=== PATIENT | female | born 1955 | race Two or more races ===

== ENCOUNTER 2020-08-27 09:55 | Outpatient (REF) | payer MEDICARE, MEDICAID, SELFPAY ==
[2020-08-27 11:33] LABS: MANUAL DIFF FLAG NO
[2020-08-27 11:37] LABS: Basophils Absolute Auto 0.1 X10*3/uL (0.0-0.2); Basophils Percent Auto 0.7 % (0-2); Eosinophils Absolute Auto 0.1 X10*3/uL (0.0-0.4); Eosinophils Percent Auto 0.9 % (0-4); Hematocrit 43.2 % (37-47); Hemoglobin 14.1 g/dl (12.0-16.0); Imm Gran Abs Auto 0.02 X10*3/uL (0.00-0.03); Imm Gran Pct Auto 0.3 % (0.0-0.4); Lymphocytes Absolute Auto 1.4 X10*3/uL (1.2-4.9); Lymphocytes Percent Auto 18.1 % (20-40); Mean Corpuscular HGB Conc 32.6 g/dl (31.0-35.0); Mean Corpuscular Hemoglobin 27.3 pg (27.0-33.0); Mean Corpuscular Volume 83.7 fL (80-98); Mean Platelet Volume 10.5 fL (9.4-12.3); Monocytes Absolute Auto 0.4 X10*3/uL (0.1-1.2); Monocytes Percent Auto 5.5 % (2-11); Neutrophils Absolute Auto 5.7 X10*3/uL (2.0-8.3); Neutrophils Percent Auto 74.5 % (45-73); Platelet Count 201 X10*3/uL (160-400); Red Blood Count 5.16 X10*6/uL (4.20-5.50); Red Cell Distribution Width 13.9 % (11.0-16.0); White Blood Count 7.7 X10*3/uL (4.8-10.8)
[2020-08-27 12:05] LABS: Alanine Aminotransferase 55 U/L (0-31); Albumin Level 4.3 g/dL (3.5-5.0); Alkaline Phosphatase 173 U/L (39-117); Anion Gap 15 (12-20); Aspartate Amino Transferase 35 U/L (5-31); Bilirubin Total 0.7 mg/dL (0.0-1.0); Blood Urea Nitrogen 19 mg/dL (9-16); Carbon Dioxide 25 mmol/L (22-29); Chloride 100 mmol/L (96-108); Estimated Glomerular Filt Rate > 60; Glucose Fasting 164 mg/dL (60-99); Magnesium 1.9 mg/dL (1.6-2.6); Phosphorus 3.5 mg/dL (2.7-4.5); Potassium 4.5 mmol/l (3.3-5.1); Sodium 135 mmol/L (135-145); Total Protein 7.3 g/dL (6.5-8.0)
[2020-08-27 12:26] LABS: Free T4 (Free Thyroxine) 0.92 ng/dL (0.71-1.85); Thyroid Stimulating Hormone 3.49 mIU/mL (0.32-4.0); Vitamin D 25-OH Total 24.3 ng/mL (>30)
[2020-08-28 20:32] LABS: Calcium (PTHI) 10.2 mg/dL (8.6-10.4); PTHI 63 pg/mL (14-64)
[2020-08-30 15:53] LABS: Alkaline Phosphatase Bone 38.8 mcg/L (5.6-29.0)
[2020-09-01 17:57] LABS: Calcium, Ionized 5.5 mg/dL (4.8-5.6)
[2020-09-03 13:12] LABS: VITAMIN D (1,25 OH) D3 65 pg/mL; Vit D (1,25-Dihydroxy) Total 65 pg/mL (18-72); Vitamin D (1,25 OH) D2 <8 pg/mL
[2020-09-04 16:22] LABS: Testosterone, Total 19 ng/dL (2-45)
[2020-09-05 00:51] LABS: Parathyroid Hormone Related Pr 12 pg/mL (14-27)
== END 2020-08-27 09:56 | disposition home or self-care (01) ==
LOC: CF 09:55
PROVIDERS: Absent Provider Internal Medicine; PCP Internal Medicine Geriatric Medicine; Referring Provider Internal Medicine Geriatric Medicine; Visit Provider Internal Medicine Endocrinology, Diabetes & Metabolism
DX: E11.65 Type 2 diabetes mellitus with hyperglycemia (principal); E11.21 Type 2 diabetes mellitus with diabetic nephropathy; E04.2 Nontoxic multinodular goiter; I10 Essential (primary) hypertension; E78.5 Hyperlipidemia, unspecified; E66.9 Obesity, unspecified; L68.0 Hirsutism; E83.52 Hypercalcemia; Z79.4 Long term (current) use of insulin; Z68.34 Body mass index [BMI] 34.0-34.9, adult; Z71.3 Dietary counseling and surveillance
CPT/HCPCS: 36415; 80053; 82306; 82330; 82652; 82947; 83519; 83735; 83970; 84075; 84100; 84402; 84403; 84439; 84443; 85025; 99212

== ENCOUNTER 2020-09-09 12:31 | Outpatient (REF) | payer MEDICARE, MEDICAID, SELFPAY ==
--- NOTE | 2020-09-09 12:34 | US_ITS ---
EXAMINATION: US THYROID CLINICAL INFORMATION: Nontoxic multinodular goiter. COMPARISON: Ultrasound soft tissue head/neck thyroid dated 04/03/2019 and 03/01/2018. TECHNIQUE: Linear transducer moser-scale and color Doppler examination with attention to the region of the thyroid. FINDINGS: SIZE: Measurements of the thyroid lobes and nodules are given in sagittal, anteroposterior and transverse dimensions respectively. Right Thyroid Lobe: 3.3 x 1.9 x 1.7 cm, volume 5.6 mL. Previously 3.7 x 1.8 x 1.7 cm, volume 5.7 mL. Parenchyma: The gland echotexture is homogeneous. Thyroid vascularity is normal. Left Thyroid Lobe: 3.3 x 1.6 x 1.8 cm, volume 4.9 mL. Previously 2.9 x 1.4 x 1.1 cm, volume 3.2 mL. Parenchyma: The gland echotexture is heterogeneous. Thyroid vascularity is normal. Isthmus: 0.6 cm in maximum AP dimension. Previously 0.9 cm. RIGHT THYROID LOBE: There is 1 nodule seen. 1. Location: Mid. Size: 1.7 x 1.6 x 1.4 cm. Previous: 1.3 x 1.4 x 1.6 cm. Nodule characteristics: Complex cystic and solid nodule with smooth circumscribed margins and intranodular flow but no microcalcification. ISTHMUS: There is 1 nodule seen. 1. Location: Left. Size: 0.5 x 0.4 x 0.4 cm. This nodule is new. Nodule characteristics: Hypoechoic smoothly marginated nodule with no intranodular flow or microcalcification. LEFT THYROID LOBE: There is 1 nodule seen. 1. Location: Superior. Size: 0.3 x 0.2 x 0.3 cm. This nodule is new. Nodule characteristics: Hypoechoic smoothly marginated nodule with no intranodular flow or microcalcification. NODES: No lymphadenopathy is seen in the tissue surrounding the thyroid gland. US/US thyroid IMPRESSION: Bilateral thyroid nodules are present. The largest is in the right lobe of the thyroid and is minimally increased in size, now 1.7 cm greatest dimension, previously 1.6 cm. There are new subcentimeter nodules in the left lobe the thyroid and isthmus. Recommend continued attention on follow-up, for example in 12-24 months.
== END 2020-09-09 12:32 | disposition home or self-care (01) ==
LOC: HO.US 12:31
PROVIDERS: Visit Provider Internal Medicine Endocrinology, Diabetes & Metabolism
DX: E04.2 Nontoxic multinodular goiter (principal)
CPT/HCPCS: 76536

== ENCOUNTER → 2020-10-21 14:03 | Outpatient (BNVA) | payer MEDICARE, MEDICAID, SELFPAY | PROVIDERS: PCP Internal Medicine Geriatric Medicine; Referring Provider Internal Medicine Geriatric Medicine; Visit Provider Surgery | DX: C50.912 Malignant neoplasm of unspecified site of left female breast (principal); Z79.811 Long term (current) use of aromatase inhibitors; Z92.3 Personal history of irradiation | CPT/HCPCS: 99212 ==

== ENCOUNTER 2020-11-27 09:32 | Outpatient (REF) | payer MEDICARE, MEDICAID, SELFPAY ==
--- NOTE | 2020-11-27 10:29 | P.BOP_ITS ---
Brief Operative Note Date of Service: 11/27/20 Pre-op diagnosis: NON TOXIC MULTINODULAR GOITER Post-op diagnosis: same Procedure: This procedure was explained to the patient. Alternatives, risks and benefits were discussed. Written consent was obtained. After sterile preparation of the skin, fine-needle aspiration biopsy of right mid to lower pole thyroid nodule, size 1.7 x 1.6 x 1.4 cm was performed under direct ultrasound guidance to confirm accurate needle placement. Three passes were performed with 27 gauge needles. Sample was submitted to cytology, initial cytology reading was inadequate. Two extra passes were performed with 25 gauge needles. 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 Patient tolerated procedure well. Aftercare instructions were provided. Impression: uncomplicated fine-needle aspiration biopsy of right mid to lower pole thyroid nodule under direct ultrasound guidance. Surgeon: Sourav Cedeno MD Anesthesia: local (Lidocaine 1%) Estimated blood loss (mL): 0 Condition: stable Disposition: same day
== END 2020-11-27 09:33 | disposition home or self-care (01) ==
LOC: HO.US 09:32
PROVIDERS: Visit Provider Internal Medicine Endocrinology, Diabetes & Metabolism
DX: E04.2 Nontoxic multinodular goiter (principal)
CPT/HCPCS: 10005; 88172; 88173; 88177

== ENCOUNTER → 2020-12-11 13:02 | Outpatient (BNVA) | payer MEDICARE, MEDICAID, SELFPAY | PROVIDERS: PCP Internal Medicine Geriatric Medicine; Referring Provider Internal Medicine Geriatric Medicine; Visit Provider Internal Medicine Endocrinology, Diabetes & Metabolism | DX: E11.65 Type 2 diabetes mellitus with hyperglycemia (principal); E11.21 Type 2 diabetes mellitus with diabetic nephropathy; E04.2 Nontoxic multinodular goiter; I10 Essential (primary) hypertension; E78.5 Hyperlipidemia, unspecified; E66.9 Obesity, unspecified; L68.0 Hirsutism; E83.52 Hypercalcemia | CPT/HCPCS: 82947; 99212 ==

== ENCOUNTER 2020-12-12 11:37 | Outpatient (REF) | payer MEDICARE, MEDICAID, SELFPAY ==
[2020-12-12 12:29] LABS: Total Volume 24 Hour Urine 2250 mL
[2020-12-12 13:29] LABS: Creatinine, 24Hr Urine 1.2 G/Day (1.0-2.0); Creatinine, mg/dL 55.54
[2020-12-13 16:37] LABS: Calcium, 24 Hr Urine 333 mg/24 h; Calcium/Creatinine Ratio 251 mg/g creat (30-275); Creatinine 24Hr Urine 1.33 g/24 h (0.50-2.15)
== END 2020-12-12 11:38 | disposition home or self-care (01) ==
LOC: HO.LNP 11:37
PROVIDERS: Visit Provider Internal Medicine Endocrinology, Diabetes & Metabolism
DX: E83.52 Hypercalcemia (principal); E04.2 Nontoxic multinodular goiter; E11.9 Type 2 diabetes mellitus without complications
CPT/HCPCS: 82340; 82570

== ENCOUNTER 2021-01-14 21:04 | Inpatient (IN) | payer MEDICARE, MEDICAID, SELFPAY ==
--- NOTE | ~2021-01-14 | XR_ITS ---
EXAMINATION: XR CHEST CLINICAL INFORMATION: Cough. COMPARISON: Chest x-ray 09/15/2011 TECHNIQUE: Frontal view of the chest was obtained. Portable 9:39 PM FINDINGS: No significant abnormality is noted involving the heart, lungs, mediastinum, bony thorax or soft tissues. XR/XR chest 1V IMPRESSION: Unremarkable examination.
--- NOTE | ~2021-01-14 | CT_ITS ---
EXAMINATION: CT ABDOMEN AND PELVIS WITH CONTRAST CLINICAL INFORMATION: Abdominal pain COMPARISON: CT abdomen pelvis 11/27/2018 TECHNIQUE: Multidetector volumetric images were obtained from the superior aspect of the liver through the pubic symphysis following administration 85 mL of Omnipaque 350 intravenous contrast. Sagittal and coronal reformatted images were obtained on the technologist's workstation. Oral contrast: No This CT examination was performed using dose optimization techniques as appropriate, variously including the following: *Automated exposure control *Adjustment of mA and/or kV according to patient size (this includes techniques or standardized protocols for targeted exams where dose is matched to indication/reason for exam; i.e. extremities or head) *Use of iterative reconstruction technique DLP: 743 mGy-cm FINDINGS: LUNG BASES: The left breast is grossly abnormal with marked skin thickening with mass extending centrally into the breast. The breast was previously biopsied patient has diagnosis of invasive lobular carcinoma. LIVER, GALLBLADDER, AND BILIARY TREE: The liver border is nodular suggesting underlying cirrhosis. No focal masses or bile duct dilatation is seen. Patient status post cholecystectomy PANCREAS: Unremarkable. SPLEEN: Unremarkable. ADRENAL GLANDS: Adrenal gland is minimally thickened compared with the right. KIDNEYS AND URETERS: The kidneys are normal in size, shape, and attenuation. No hydronephrosis, hydroureter, or calculi seen. No perinephric stranding. BLADDER: Unremarkable. GASTROINTESTINAL TRACT: Diverticular changes are present in the colon sigmoid without diverticulitis. The small and large bowel are otherwise unremarkable. The appendix is not seen. ABDOMINAL WALL: No significant hernia is appreciated. LYMPH NODES: No retroperitoneal lymphadenopathy. VASCULAR: Prominent varices are seen again around the splenic hilum. The aorta and iliofemoral vessels appear unremarkable. No aneurysm is seen. PELVIC VISCERA: Calcifications again seen in the uterus presumably due to fibroids. An abnormal adnexal mass or free intraperitoneal fluid is not seen. OSSEOUS STRUCTURES: Unremarkable. CT/CT abdomen pelvis w con IMPRESSION: A cause for the patient's acute abdominal pain has not been found. Incidental note is made of: 1. Abnormal left breast consistent with diagnosis of cancer 2. Nodular liver suggesting underlying cirrhosis with. No ascites. 3. Colonic diverticulosis without diverticulitis. 4. Calcified uterine fibroids.
[2021-01-14 21:16] VITALS: BP 138/56; BP 167/76; PULSE 120; RESP 18; TEMP 39.4; O2SAT 98; O2SAT 99; BMI 34.2
--- NOTE | 2021-01-14 21:35 | ECG_ITS ---
Test Reason : VOMITING Blood Pressure : / mmHG Vent. Rate : 120 BPM Atrial Rate : 120 BPM P-R Int : 158 ms QRS Dur : 140 ms QT Int : 346 ms P-R-T Axes : -08 148 010 degrees QTc Int : 489 ms Sinus tachycardia Right bundle branch block Left posterior fascicular block Bifascicular block Cannot rule out Inferior infarct , age undetermined Abnormal ECG When compared with ECG of 14-FEB-2019 15:31, Right bundle branch block has replaced Non-specific intra-ventricular conduction block Minimal criteria for Inferior infarct are now Present Referred By: Rocio Vieira Electronically Signed By:ADDIS PATTON MD
--- NOTE | 2021-01-14 21:51 | ED_ITS ---
HPI - Nausea/Vomiting/Diarrhea General Chief complaint: Nausea/Vomiting/Diarrhea Stated complaint: NAUSEA/FLU SYMPTOMS Time Seen by Provider: 01/14/21 21:31 History of Present Illness HPI Narrative: Patient is a 65-year-old female presents today with having nausea, vomiting. Previous history of cholecystectomy, appendectomy in the past. Also history of breast cancer. History of diabetes. Positive fever positive generalized malaise. Patient from home. No coughing or congestion or upper respiratory symptoms. No diaphoresis. No chest pain. Positive feeling weak tired. Positive pain on urination. Positive increasing frequency. Abdominal pain is diffuse over the entire abdomen. No change in smell or taste. Rates pain as 5/10. No history of similar pain in the past. No radiation of this pain Related Data Home Medications Medication Instructions Recorded Confirmed acetaminophen 1 - 2 tab PO Q8H PRN 08/06/20 01/14/21 aspirin 1 tab PO DAILY 08/06/20 01/14/21 atorvastatin 1 tab PO DAILY 08/06/20 01/14/21 benztropine 1 tab PO BID 08/06/20 01/14/21 fluphenazine decanoate 50 mg IM Q3W 08/06/20 01/14/21 ketorolac 1 drp OPHTHALMIC (EYE) TID PRN 08/06/20 01/14/21 letrozole [Femara] 1 tab PO DAILY 08/06/20 01/14/21 lisinopril 1 tab PO DAILY 08/06/20 01/14/21 meclizine 25 mg PO TID PRN 08/06/20 01/14/21 nortriptyline 1 cap PO BEDTIME 08/06/20 01/14/21 omeprazole 1 cap PO DAILY 08/06/20 01/14/21 semaglutide [Ozempic] 1 mg SUBCUT QWEEK 08/06/20 01/14/21 zolpidem [Ambien] 5 mg PO BEDTIME 08/06/20 01/14/21 diclofenac sodium 2 g TOPICAL BID 01/14/21 01/14/21 insulin aspart U-100 [Novolog 30 unit SUBCUT TID 01/14/21 01/14/21 Flexpen U-100 Insulin] insulin degludec [Tresiba 140 unit SUBCUT DAILY 01/14/21 01/14/21 FlexTouch U-200] Previous Rx's Medication Instructions Recorded pen needle, diabetic 32 gauge x #400 ea 08/12/20 meloxicam 7.5 mg tablet 7.5 mg PO DAILY 30 Days #30 tab 10/13/20 blood sugar diagnostic #100 ea 01/01/21 Allergies Allergy/AdvReac Type Severity Reaction Status Date / Time metformin [METFORMIN] Allergy Intermediate ELEVATED Verified 01/14/21 23:16 LIVER ENZYMES, liver damage Review of Systems Review of Systems: Constitutional: No Weight loss, No Fever, No Chills, No Night Sweats, No Fatigue, No Malaise ENT/Mouth: No Hearing loss, No Ear Pain, No Nasal Congestion, No Sinus Pain, No Hoarseness, No sore throat, No Rhinorrhea, No Swallowing Difficulty Eyes: No Eye Pain, No Swelling, No Redness, No Foreign Body, No Discharge, No Vision Changes Cardiovascular: No Chest Pain, No SOB, No Dyspnea on Exertion, No Orthopnea, No Edema, No Palpitations Respiratory: No Cough, No Sputum, No Wheezing, No Smoke Exposure, No Dyspnea Gastrointestinal: Positive nausea, positive vomiting, No Diarrhea, No Constipation, positive abdominal Pain, No Hematochezia, No Melena Genitourinary: no irregular bleeding, No Dysuria, No Urinary Frequency, No He maturia, No Urinary Incontinence, No Urgency, No Flank Pain, No Urinary Flow Changes, No Hesitancy Musculoskeletal: No joint pain, No Myalgias, No Joint Swelling Skin: No Skin Lesions, No rash Neuro: No Weakness, No Numbness, No Paresthesias, No Loss of Consciousness, No Dizziness, No Headache Psych: No Anxiety/Panic, No Depression, No SI/HI/AH/VH, No Social Issues, Heme/Lymph: No Bruising, No Bleeding,No Lymphadenopathy Endocrine: No Polyuria, No Polydipsia, No Temperature Intolerance PMFSH Past Medical History Attestation statement: The following information was validated with the patient. 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 Multinodular goiter (nontoxic) Obesity Urinary incontinence Surgical History History of appendectomy History of tonsillectomy History of tubal ligation Status post laser cataract surgery of both eyes Status post left breast lumpectomy Family History Family History Father History of lung cancer Social History Social History Household Members: None Housing: Apartment Smoking Status: Former smoker Tobacco Type: Cigarette Advance Directives: No Physical Exam Vital Signs: Vital Signs: Last Vital Signs Temp 100.7 F H 01/15/21 01:06 Pulse 118 H 01/15/21 01:06 Resp 18 01/15/21 01:06 BP 127/52 L 01/15/21 01:06 Pulse Ox 98 01/15/21 00:00 Body Mass Index 34.2 Appearance: Alert. Oriented X3. No acute distress. Eyes: Pupils equal, round and reactive to light. ENT: Pharynx normal. Neck: Normal inspection. Neck supple. No lymph nodes noted. No crepitus CVS: Normal heart rate and rhythm. Pulses normal. Normal S1 and S2 Respiratory: No respiratory distress. Breath sounds normal. No Wheezing. No rales Abdomen: Soft and nontender. No rigidity. No distention. good BS x4 Skin: Skin warm and dry. Normal skin color. Normal skin turgor. Extremities: No lower extremity edema. Neurovascular intact to all extremities. No Lacerations. No Rash Neuro: Oriented X 3. No motor deficit. No sensory deficit. Moving all extermities. No slurred speech MDM - Nausea/Vomiting/Diarrhea MDM Narrative Medical decision making narrative: Patient positive fever nausea, vomiting. CT scan did not show any acute evidence of obstruction, abscess. Urine showed no evidence of UTI. Chest x-ray showed no evidence of pneumonia. COVID test was negative. Will admit for further hydration. Will monitor carefully. Cultures are obtained. Patient's lactate was slightly elevated 2.1. A g Rocephin was given initially. Will monitor carefully. We will repeat lactate. Thanks patient's elevated lactate is more likely secondary to dehydration. Currently in stable condition Lab Data Result diagrams: 01/14/21 22:51 01/14/21 22:51 Labs: Lab Results 01/14/21 01/14/21 01/14/21 Range/Units 22:08 22:51 22:51 WBC 15.7 H (4.8-10.8) X10*3/uL RBC 4.94 (4.20-5.50) X10*6/uL Hgb 13.2 (12.0-16.0) g/dl Hct 39.9 (37-47) % MCV 80.8 (80-98) fL MCH 26.7 L (27.0-33.0) pg MCHC 33.1 (31.0-35.0) g/dl RDW 14.0 (11.0-16.0) % Plt Count 230 (160-400) X10*3/uL MPV 10.0 (9.4-12.3) fL Immature Gran % (Auto) 0.4 (0.0-0.4) % Neut % (Auto) 90.3 H (45-73) % Lymph % (Auto) 4.3 L (20-40) % [place] % (Auto) 4.5 (2-11) % Eos % (Auto) 0.3 (0-4) % Baso % (Auto) 0.2 (0-2) % Lymph # (Auto) 0.7 L (1.2-4.9) X10*3/uL [place] # (Auto) 0.7 (0.1-1.2) X10*3/uL Eos # (Auto) 0.1 (0.0-0.4) X10*3/uL Baso # (Auto) 0.0 (0.0-0.2) X10*3/uL Abs Immat Gran (auto) 0.06 H (0.00-0.03) X10*3/uL Absolute Neuts (auto) 14.2 H (2.0-8.3) X10*3/uL Absolute Nucleated RBC 0.000 (0.0-0.012) X10*3/uL Nucleated RBC % (auto) 0.0 (0.0-0.2) /100WBC Smear Tech's Comments VERIFIED Sodium 134 L (135-145) mmol/L Potassium 4.6 (3.3-5.1) mmol/L Chloride 100 (96-108) mmol/L Carbon Dioxide 25 (22-29) mmol/L Anion Gap 14 (12-20) BUN 24 H (9-16) mg/dL Creatinine 0.94 (0.5-1.4) mg/dL Estim Creat Clear Calc 59.4 Estimated GFR 60 Random Glucose 220 H (60-115) mg/dL Lactic Acid (0.5-2.0) mmol/L Calcium 9.9 (8.4-10.2) mg/dL Total Bilirubin 0.8 (0.0-1.0) mg/dL Direct Bilirubin 0.4 (0.0-0.5) mg/dL AST 75 H (5-31) U/L ALT 95 H (0-31) U/L Alkaline Phosphatase 236 H D (39-117) U/L Total Protein 7.2 (6.5-8.0) g/dL Albumin 4.2 (3.5-5.0) g/dL Lipase 11 (8-78) U/L Urine Color Urine Appearance Urine pH (5.0-8.0) Ur Specific [place] (1.005-1.025) Urine Protein (NEG-TRACE) MG/DL Urine Glucose (UA) (NEG) MG/DL Urine Ketones (NEG) MG/DL Urine Blood (NEG) Urine Nitrite (NEG) Ur Leukocyte Esterase (NEG) Urine RBC (0) /HPF Urine WBC (0-4) /HPF Ur Squamous Epith Cells /LPF Urine Bacteria /LPF Coronavirus (PCR) NEGATIVE (Negative) Influenza Type A (PCR) NEGATIVE (Negative) Influenza Type B (PCR) NEGATIVE (Negative) RSV RNA Qual (PCR) NEGATIVE (Negative) 01/14/21 01/15/21 Range/Units 22:51 01:08 WBC (4.8-10.8) X10*3/uL RBC (4.20-5.50) X10*6/uL Hgb (12.0-16.0) g/dl Hct (37-47) % MCV (80-98) fL MCH (27.0-33.0) pg MCHC (31.0-35.0) g/dl RDW (11.0-16.0) % Plt Count (160-400) X10*3/uL MPV (9.4-12.3) fL Immature Gran % (Auto) (0.0-0.4) % Neut % (Auto) (45-73) % Lymph % (Auto) (20-40) % [place] % (Auto) (2-11) % Eos % (Auto) (0-4) % Baso % (Auto) (0-2) % Lymph # (Auto) (1.2-4.9) X10*3/uL [place] # (Auto) (0.1-1.2) X10*3/uL Eos # (Auto) (0.0-0.4) X10*3/uL Baso # (Auto) (0.0-0.2) X10*3/uL Abs Immat Gran (auto) (0.00-0.03) X10*3/uL Absolute Neuts (auto) (2.0-8.3) X10*3/uL Absolute Nucleated RBC (0.0-0.012) X10*3/uL Nucleated RBC % (auto) (0.0-0.2) /100WBC Smear Tech's Comments Sodium (135-145) mmol/L Potassium (3.3-5.1) mmol/L Chloride (96-108) mmol/L Carbon Dioxide (22-29) mmol/L Anion Gap (12-20) BUN (9-16) mg/dL Creatinine (0.5-1.4) mg/dL Estim Creat Clear Calc Estimated GFR Random Glucose (60-115) mg/dL Lactic Acid 2.1 H* (0.5-2.0) mmol/L Calcium (8.4-10.2) mg/dL Total Bilirubin (0.0-1.0) mg/dL Direct Bilirubin (0.0-0.5) mg/dL AST (5-31) U/L ALT (0-31) U/L Alkaline Phosphatase (39-117) U/L Total Protein (6.5-8.0) g/dL Albumin (3.5-5.0) g/dL Lipase (8-78) U/L Urine Color YELLOW Urine Appearance CLEAR Urine pH 7.0 (5.0-8.0) Ur Specific [place] <= 1.005 (1.005-1.025) Urine Protein NEG (NEG-TRACE) MG/DL Urine Glucose (UA) NEG (NEG) MG/DL Urine Ketones NEG (NEG) MG/DL Urine Blood NEG (NEG) Urine Nitrite NEG (NEG) Ur Leukocyte Esterase TRACE H (NEG) Urine RBC 0 (0) /HPF Urine WBC 0-2 (0-4) /HPF Ur Squamous Epith Cells 1+ /LPF Urine Bacteria NONE /LPF Coronavirus (PCR) (Negative) Influenza Type A (PCR) (Negative) Influenza Type B (PCR) (Negative) RSV RNA Qual (PCR) (Negative) Critical Care Time Critical Care Time Critical Care Time: Yes Total Critical Care Time: 40 Attestation: I have personally provided 40 minutes of critical care time exclusive of time spent on separately billable procedures. Time includes review of lab data, radiology results, discussion with consultants, and monitoring for potential decompensation. Interventions were performed as documented above Discharge Plan Discharge Clinical Impression: Fever, Nausea & vomiting Prescriptions: No Action (DME) pen needle, diabetic [BD Edilia 2nd Gen Pen Needle] 32 gauge x 5/32 needle See Rx Instructions .MEDSUPPLY Qty: 400 RF: 4 meloxicam 7.5 mg tablet 7.5 mg PO DAILY 30 Days Qty: 30 RF: 3 (DME) FreeStyle Lite Strips Strip See Rx Instructions .MEDSUPPLY Qty: 100 RF: 6 insulin aspart U-100 [Novolog Flexpen U-100 Insulin] 100 unit/mL (3 mL) insulin pen 30 unit subcut TID RF: 0 diclofenac sodium 1 % gel 2 g topical BID RF: 0 Tresiba FlexTouch U-200 200 unit/mL (3 mL) insulin pen 140 unit subcut DAILY RF: 0 nortriptyline 75 mg capsule 1 cap PO BEDTIME RF: 0 zolpidem [Ambien] 5 mg Tablet 5 mg PO BEDTIME RF: 0 atorvastatin 20 mg tablet 1 tab PO DAILY RF: 0 aspirin 81 mg tablet,delayed release (DR/EC) 1 tab PO DAILY RF: 0 acetaminophen 500 mg tablet 1 - 2 tab PO Q8H PRN (Reason: pain) RF: 0 ketorolac 0.5 % drops 1 drp ophthalmic (eye) TID PRN (Reason: Pain) RF: 0 fluphenazine decanoate 25 mg/mL solution 50 mg IM Q3W RF: 0 meclizine 25 mg Tablet 25 mg PO TID PRN (Reason: Dizziness) RF: 0 lisinopril 10 mg tablet 1 tab PO DAILY RF: 0 benztropine 1 mg tablet 1 tab PO BID RF: 0 omeprazole 20 mg capsule,delayed release(DR/EC) 1 cap PO DAILY RF: 0 letrozole [Femara] 2.5 mg tablet 1 tab PO DAILY RF: 0 Ozempic 1 mg/dose (2 mg/1.5 mL) pen injector 1 mg subcut QWEEK RF: 0
[2021-01-14 21:59] VITALS: BP 120/51; PULSE 119; RESP 20; O2SAT 96
--- NOTE | 2021-01-14 22:32 | PC.NURSE ---
Pt is a difficult stick, unable to obtain IV access. COVID swab obtained and sent for analysis, awaiting results. aware. Another RN to attempt to obtain labs & IV access. Will continue to monitor.
[2021-01-14 22:59] LABS: Basophils Percent Auto 0.2 % (0-2); Eosinophils Absolute Auto 0.1 X10*3/uL (0.0-0.4); Eosinophils Percent Auto 0.3 % (0-4); Hematocrit 39.9 % (37-47); Hemoglobin 13.2 g/dl (12.0-16.0); Imm Gran Abs Auto 0.06 X10*3/uL (0.00-0.03); Imm Gran Pct Auto 0.4 % (0.0-0.4); Lymphocytes Absolute Auto 0.7 X10*3/uL (1.2-4.9); Lymphocytes Percent Auto 4.3 % (20-40); MANUAL DIFF FLAG SCAN; Mean Corpuscular HGB Conc 33.1 g/dl (31.0-35.0); Mean Corpuscular Hemoglobin 26.7 pg (27.0-33.0); Mean Corpuscular Volume 80.8 fL (80-98); Monocytes Absolute Auto 0.7 X10*3/uL (0.1-1.2); Monocytes Percent Auto 4.5 % (2-11); Neutrophils Absolute Auto 14.2 X10*3/uL (2.0-8.3); Neutrophils Percent Auto 90.3 % (45-73); Platelet Count 230 X10*3/uL (160-400); Red Blood Count 4.94 X10*6/uL (4.20-5.50); SCAN SMEAR FLAG 1; White Blood Count 15.7 X10*3/uL (4.8-10.8)
[2021-01-14 23:05] LABS: Influenza A PCR NEGATIVE (Negative); Influenza B PCR NEGATIVE (Negative); Resp Syncy Virus RNA Qual PCR NEGATIVE (Negative); SARS COV2 PCR INHOUSE NEGATIVE (Negative)
[2021-01-14] MEDS: 0.9 % Sodium Chloride 1,000 ML 999 ML IV (23:06)
[2021-01-14] MEDS: ondansetron HCL 4 MG/2 ML VIAL IVPUSH (23:07)
[2021-01-14] MEDS: Acetaminophen 325 MG TABLET 650 MG PO (23:07)
[2021-01-14 23:10] VITALS: BP 119/40; PULSE 120; RESP 20; O2SAT 97
[2021-01-14 23:24] LABS: SLIDE REVIEW VERIFIED
[2021-01-14 23:36] LABS: Alanine Aminotransferase 95 U/L (0-31); Albumin Level 4.2 g/dL (3.5-5.0); Alkaline Phosphatase 236 U/L (39-117); Anion Gap 14 (12-20); Aspartate Amino Transferase 75 U/L (5-31); Bilirubin Direct 0.4 mg/dL (0.0-0.5); Bilirubin Total 0.8 mg/dL (0.0-1.0); Blood Urea Nitrogen 24 mg/dL (9-16); Calcium 9.9 mg/dL (8.4-10.2); Carbon Dioxide 25 mmol/L (22-29); Chloride 100 mmol/L (96-108); Creatinine Clr Calc Pharmacy 59.4; Estimated Glomerular Filt Rate 60; Glucose Random 220 mg/dL (60-115); Lipase 11 U/L (8-78); Potassium 4.6 mmol/L (3.3-5.1); Sodium 134 mmol/L (135-145); Total Protein 7.2 g/dL (6.5-8.0)
[2021-01-14 23:37] LABS: Lactic Acid 2.1 mmol/L (0.5-2.0)
[2021-01-14 23:44] VITALS: BP 130/42; PULSE 115; RESP 18; O2SAT 95
--- NOTE | 2021-01-14 23:52 | PC.NURSE ---
20g IV access that was established by ARTIE Mayer has infiltrated. New IV access (22g) established in left hand. 20g IV access removed by this RN.-
[2021-01-15] VITALS (14 sets, daily range): BP systolic 112–164; BP diastolic 52–74; PULSE 94–118; RESP 15–19; TEMP 36.2–38.8; O2SAT 95–100; BMI 34.2
--- NOTE | 2021-01-15 | ECG_ITS ---
Test Reason : SOB Blood Pressure : / mmHG Vent. Rate : 093 BPM Atrial Rate : 093 BPM P-R Int : 162 ms QRS Dur : 134 ms QT Int : 388 ms P-R-T Axes : 063 -57 052 degrees QTc Int : 482 ms Normal sinus rhythm Left axis deviation Non-specific intra-ventricular conduction block Abnormal ECG When compared with ECG of 14-JAN-2021 22:01, Non-specific intra-ventricular conduction block has replaced Right bundle branch block Referred By: Rocio Vieira Electronically Signed By:ADDIS PATTON MD
[2021-01-15 00:56] LABS: Reflex Lactate? Lactic Acid Added
[2021-01-15] MEDS: 0.9 % Sodium Chloride 500 ML 999 ML IV ×2 (01:06→02:36)
[2021-01-15] MEDS: cefTRIAXone sodium 1 GM in 0.9 % Sodium Chloride 50 ML IV (01:19)
[2021-01-15 01:20] LABS: Glucose Urine UA NEG (NEG); Leukocyte Esterase Urine TRACE (NEG); Nitrite Urine NEG (NEG); Specific Gravity - Urine <= 1.005 (1.005-1.025); UACC Culture Trigger YES; Urine Blood NEG (NEG); Urine Ketones NEG (NEG); Urine Protein NEG (NEG-TRACE)
[2021-01-15 01:21] LABS: Appearance Urine CLEAR; Color Urine YELLOW
[2021-01-15 01:27] LABS: RBC Urine 0 /HPF (0); Squamous Epithelial Cell Urine 1+ /LPF; WBC Urine 0-2 /HPF (0-4)
--- NOTE | 2021-01-15 02:00 | P.HPHOSP_ITS ---
History of Present Illness Date of Service: 01/15/21 Chief Complaint: Nausea and vomiting 65-year-old female with a past medical history of hypertension, hyperlipidemia, diabetes, anxiety, depression, bipolar disorder, obesity, history of liver cirrhosis,, history of breast cancer presented to the hospital with a chief complaint of nausea vomiting and abdominal pain. Patient reported that she had fever of 102 F at home. Denies any numbness tingling. Denies any blood in the vomitus or stool stool. Review of all other systems is negative except mentioned above ER course: Per ER team patient noted to have diffuse abdominal tenderness, noted mildly elevated LFTs, CT abdomen showed no acute findings; patient failed oral steroids. Patient was given Zosyn empirically. Blood cultures were sent. Admitted to the hospital for further management. 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 Multinodular goiter (nontoxic) Obesity Urinary incontinence Family History Father History of lung cancer Surgical History History of appendectomy History of tonsillectomy History of tubal ligation Status post laser cataract surgery of both eyes Status post left breast lumpectomy Social History Household Members: None Housing: Apartment Alcohol intake: current Alcohol intake frequency: holidays/special occasions only Smoking Status: Never smoker Tobacco Type: Cigarette Second Hand Smoke Exposure: No service: No Current occupational status: unemployed Meds Allergies Allergy/AdvReac Type Severity Reaction Status Date / Time metformin [METFORMIN] Allergy Intermediate ELEVATED Verified 01/14/21 23:16 LIVER ENZYMES, liver damage Active Medications: Current Medications Generic Name Dose Route Start Last Admin Trade Name Freq PRN Reason Stop Dose Admin Aspirin 81 mg 01/15/21 09:00 Aspirin Enteric Coated 81 Mg Tablet. PO DAILY [facility] Atorvastatin Calcium 20 mg 01/15/21 09:00 Atorvastatin Calcium 20 Mg Tablet PO DAILY [facility] Benztropine Mesylate 1 mg 01/15/21 09:00 Benztropine Mesylate 1 Mg Tablet PO BID [facility] Fluphenazine Decanoate 50 mg 01/15/21 02:00 Fluphenazine Decanoate 25 Mg/Ml Vial IM Q3W [facility] Piperacillin Sod/Tazobactam 50 mls @ 100 mls/hr 01/15/21 02:00 Sod 3.375 gm/ Sodium Chloride IV Q6H [facility] Dextrose/Sodium Chloride 1,000 mls @ 50 mls/hr 01/15/21 02:00 D51/2ns IVCONT .Q20H [facility] Insulin Human Lispro 0 unit 01/15/21 07:30 Insulin Lispro 100 Unit/Ml 3 Ml Vial SUBCUT QIDACHS [facility] Protocol Ketorolac Tromethamine 1 drop 01/15/21 01:56 Ketorolac Tromethamine 0.5% Op 3 Ml Drops EYE-BOTH TID PRN Pain Letrozole 2.5 mg 01/15/21 09:00 Letrozole 2.5 Mg Tablet PO DAILY [facility] Lisinopril 10 mg 01/15/21 09:00 Lisinopril 10 Mg Tablet PO DAILY [facility] Protocol Meclizine HCl 25 mg 01/15/21 01:56 Meclizine Hcl 25 Mg Tablet PO TID PRN Dizziness Nortriptyline HCl 75 mg 01/15/21 21:00 Nortriptyline Hcl 25 Mg Capsule PO BEDTIME [facility] Omeprazole 20 mg 01/15/21 09:00 Omeprazole 20 Mg Capsule.Dr PO DAILY [facility] Sodium Chloride 3 ml 01/15/21 08:00 0.9 % Sodium Chloride Flush 3 Ml Syringe IVFLUSH QSHIFT [facility] Zolpidem Tartrate 5 mg 01/15/21 21:00 Zolpidem Tartrate 5 Mg Tablet PO BEDTIME [facility] Home Medications Medication Instructions Recorded Confirmed Last Taken Type Ozempic 1 mg SUBCUT QWEEK 08/06/20 01/14/21 Unknown History acetaminophen 1 - 2 tab PO Q8H PRN 08/06/20 01/14/21 01/14/21 History aspirin 1 tab PO DAILY 08/06/20 01/14/21 01/14/21 History atorvastatin 1 tab PO DAILY 08/06/20 01/14/21 01/14/21 History benztropine 1 tab PO BID 08/06/20 01/14/21 01/13/21 History fluphenazine decanoate 50 mg IM Q3W 08/06/20 01/14/21 Unknown History ketorolac 1 drp OPHTHALMIC (EYE) TID PRN 08/06/20 01/14/21 Unknown History letrozole [Femara] 1 tab PO DAILY 08/06/20 01/14/21 01/14/21 History lisinopril 1 tab PO DAILY 08/06/20 01/14/21 01/14/21 History meclizine 25 mg PO TID PRN 08/06/20 01/14/21 Unknown History nortriptyline 1 cap PO BEDTIME 08/06/20 01/14/21 01/14/21 History omeprazole 1 cap PO DAILY 08/06/20 01/14/21 01/14/21 History zolpidem [Ambien] 5 mg PO BEDTIME 08/06/20 01/14/21 01/13/21 History Tresiba FlexTouch U-200 140 unit SUBCUT DAILY 01/14/21 01/14/21 01/14/21 History diclofenac sodium 2 g TOPICAL BID 01/14/21 01/14/21 01/14/21 History insulin aspart U-100 [Novolog 30 unit SUBCUT TID 01/14/21 01/14/21 01/14/21 History Flexpen U-100 Insulin] Physical Exam Vital Signs and Narrative: Vital Signs: Last Vital Signs Temp 100.7 F H 01/15/21 01:06 Pulse 118 H 01/15/21 01:06 Resp 18 01/15/21 01:06 BP 127/52 L 01/15/21 01:06 Pulse Ox 98 01/15/21 00:00 Body Mass Index 34.2 Gen: Appears be in no acute distress HEENT: NCAT, Moist mucosa. Pulmonary: Vesicular breath sounds, fair air entry CVS: Normal S1-S2 Abdomen: BS+, Soft, mildly tender diffusely; no guarding no rigidity Extremities: Warm well perfused Neuro: Alert and awake. Results Labs CBC and Chem 7: 01/18/21 07:10 01/18/21 07:10 Labs: Laboratory Results - last 24 hr 01/14/21 01/14/21 01/14/21 22:08 22:51 22:51 MCV 80.8 MCH 26.7 L MCHC 33.1 RDW 14.0 Plt Count 230 MPV 10.0 Immature Gran % (Auto) 0.4 Neut % (Auto) 90.3 H Lymph % (Auto) 4.3 L [place] % (Auto) 4.5 Eos % (Auto) 0.3 Baso % (Auto) 0.2 Lymph # (Auto) 0.7 L [place] # (Auto) 0.7 Eos # (Auto) 0.1 Baso # (Auto) 0.0 Abs Immat Gran (auto) 0.06 H Absolute Neuts (auto) 14.2 H Absolute Nucleated RBC 0.000 Nucleated RBC % (auto) 0.0 Smear Tech's Comments VERIFIED Anion Gap 14 Estim Creat Clear Calc 59.4 Estimated GFR 60 Random Glucose 220 H Lactic Acid Calcium 9.9 Total Bilirubin 0.8 Direct Bilirubin 0.4 AST 75 H ALT 95 H Alkaline Phosphatase 236 H D Total Protein 7.2 Albumin 4.2 Lipase 11 Urine Color Urine Appearance Urine pH Ur Specific [place] Urine Protein Urine Glucose (UA) Urine Ketones Urine Blood Urine Nitrite Ur Leukocyte Esterase Urine RBC Urine WBC Ur Squamous Epith Cells Urine Bacteria Coronavirus (PCR) NEGATIVE Influenza Type A (PCR) NEGATIVE Influenza Type B (PCR) NEGATIVE RSV RNA Qual (PCR) NEGATIVE 01/14/21 01/15/21 22:51 01:08 MCV MCH MCHC RDW Plt Count MPV Immature Gran % (Auto) Neut % (Auto) Lymph % (Auto) [place] % (Auto) Eos % (Auto) Baso % (Auto) Lymph # (Auto) [place] # (Auto) Eos # (Auto) Baso # (Auto) Abs Immat Gran (auto) Absolute Neuts (auto) Absolute Nucleated RBC Nucleated RBC % (auto) Smear Tech's Comments Anion Gap Estim Creat Clear Calc Estimated GFR Random Glucose Lactic Acid 2.1 H* Calcium Total Bilirubin Direct Bilirubin AST ALT Alkaline Phosphatase Total Protein Albumin Lipase Urine Color YELLOW Urine Appearance CLEAR Urine pH 7.0 Ur Specific [place] <= 1.005 Urine Protein NEG Urine Glucose (UA) NEG Urine Ketones NEG Urine Blood NEG Urine Nitrite NEG Ur Leukocyte Esterase TRACE H Urine RBC 0 Urine WBC 0-2 Ur Squamous Epith Cells 1+ Urine Bacteria NONE Coronavirus (PCR) Influenza Type A (PCR) Influenza Type B (PCR) RSV RNA Qual (PCR) Imaging Radiologist's Impressions: Impressions Abdomen/Pelvis CT 01/14/21 21:31 IMPRESSION: A cause for the patient's acute abdominal pain has not been found. Incidental note is made of: 1. Abnormal left breast consistent with diagnosis of cancer 2. Nodular liver suggesting underlying cirrhosis with. No ascites. 3. Colonic diverticulosis without diverticulitis. 4. Calcified uterine fibroids. Chest X-Ray 01/14/21 21:31 IMPRESSION: Unremarkable examination. Assessment and Plan (1) Fever: Status: Acute 65-year-old female with a past medical history of hypertension, hyperlipidemia, diabetes, multinodular goiter, history of breast cancer, liver cirrhosis presented to the hospital with a chief complaint of nausea vomiting/generalized weakness and fever. Fever: Unclear source. Patient had nausea vomiting question GI source. CT abdomen showed no acute findings. Continue Zosyn. Follow up cultures. Id consult. History of liver cirrhosis: Patient admitted liver enzymes. Will continue to monitor. Nausea/vomiting: Supportive care. Gentle IV fluids. Breast cancer: Oncology consult Diabetes: Insulin sliding scale DVT prophylaxis: Subcu heparin Code status: Full code at
[2021-01-15 02:03] LABS: ~Lactic Acid-LAB USE ONLY 2.3 mmol/L (0.5-2.0)
[2021-01-15] MEDS: Piperacillin Sodium/Tazobactam 3.375 GM in 0.9 % Sodium Chloride 50 ML IV ×4 (02:36→20:18)
[2021-01-15] MEDS: 0.9 % Sodium Chloride 1,000 ML 999 ML IV (02:36)
--- NOTE | 2021-01-15 03:10 | PC.NURSE ---
HOSPITALIST TO BEDSIDE FOR EVALUATION.
[2021-01-15 03:16] LABS: Reflex Lactate? 2 Y
[2021-01-15 04:33] LABS: ~Lactic Acid-LAB USE ONLY 1.8 mmol/L (0.5-2.0)
[2021-01-15] MEDS: Dextrose 5 % and 0.45 % NaCl 1,000 ML 50 ML IVCONT (04:38)
[2021-01-15] MEDS: Omeprazole 20 MG CAPSULE.DR PO (06:11)
[2021-01-15 07:18] LABS: MANUAL DIFF FLAG NO
[2021-01-15 07:21] LABS: Basophils Percent Auto 0.1 % (0-2); Eosinophils Percent Auto 0.1 % (0-4); Hematocrit 34.6 % (37-47); Hemoglobin 11.1 g/dl (12.0-16.0); Imm Gran Abs Auto 0.06 X10*3/uL (0.00-0.03); Imm Gran Pct Auto 0.4 % (0.0-0.4); Lymphocytes Absolute Auto 0.8 X10*3/uL (1.2-4.9); Lymphocytes Percent Auto 5.4 % (20-40); Mean Corpuscular HGB Conc 32.1 g/dl (31.0-35.0); Mean Corpuscular Hemoglobin 26.4 pg (27.0-33.0); Mean Corpuscular Volume 82.4 fL (80-98); Mean Platelet Volume 10.4 fL (9.4-12.3); Monocytes Absolute Auto 0.6 X10*3/uL (0.1-1.2); Monocytes Percent Auto 4.3 % (2-11); Neutrophils Absolute Auto 13.2 X10*3/uL (2.0-8.3); Neutrophils Percent Auto 89.7 % (45-73); Platelet Count 183 X10*3/uL (160-400); Red Cell Distribution Width 14.2 % (11.0-16.0); White Blood Count 14.7 X10*3/uL (4.8-10.8)
[2021-01-15 07:40] LABS: Glucose, Whole Blood 173 mg/dL (60-115)
[2021-01-15] MEDS: Aspirin Enteric Coated 81 MG TABLET.DR PO (07:58)
[2021-01-15] MEDS: lisinopriL 10 MG TABLET PO (07:58)
[2021-01-15] MEDS: Atorvastatin Calcium 20 MG TABLET PO (07:58)
[2021-01-15] MEDS: Letrozole 2.5 MG TABLET PO (07:58)
[2021-01-15] MEDS: Benztropine Mesylate 1 MG TABLET PO ×2 (07:59→20:18)
[2021-01-15] MEDS: Insulin Lispro 100 UNIT/ML 3 ML VIAL SUBCUT ×4 (07:59→20:59)
[2021-01-15 08:03] LABS: Anion Gap 13 (12-20); Blood Urea Nitrogen 22 mg/dL (9-16); Calcium 8.7 mg/dL (8.4-10.2); Carbon Dioxide 25 mmol/L (22-29); Chloride 106 mmol/L (96-108); Creatinine Clr Calc Pharmacy 69.9; Estimated Glomerular Filt Rate > 60; Glucose Random 189 mg/dL (60-115); Potassium 4.5 mmol/L (3.3-5.1); Sodium 139 mmol/L (135-145)
[2021-01-15 09:01] LABS: HBsAGNum1 0.16 S/CO (0.00-0.99); Hepatitis B Surface Antigen Negative (Negative)
--- NOTE | 2021-01-15 09:17 | MHC.CM.PN ---
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 PT REPORTS HER SON ALEXANDER LUNA IS HER HCP AND COPY WAS FOUND IN RECORDS. PT ALSO ABLE TO VERIFY PCP AND PHARMACY AND NAME AND CONTACT INFO FOR PT'S VNA. HCP: ALEXANDER LUNA (SON) [phone] PCP: AUBREY SOUZA PSYCHIATRIST: SHAYNE HAWKINS [phone], NEXT PROXIN INJECTION DUE 01/21/21, GIVEN BY VNA VNA: [facility], PRIMARY NURSE [facility] [phone], BID VISITS
[2021-01-15 09:38] LABS: HBc Num1 0.03 S/CO (0.00-0.79); Hepatitis B Core Antibody Nonreactive (Nonreactive); ~Hepatitis B Surface Antibody NONREACTIVE (Nonreactive); ~Hepatitis C Antibody Nonreactive (Nonreactive)
[2021-01-15 11:09] LABS: Glucose, Whole Blood 205 mg/dL (60-115)
--- NOTE | 2021-01-15 11:44 | P.PNIM_ITS ---
Subjective Subjective Date of Service: 01/15/21 Interval History: no complaints Cardiovascular Cardiovascular: Reports no additional cardiovascular complaints Gastrointestinal Gastrointestinal: Reports no additional gastrointestinal complaints Physical Exam Vital Signs: Vital Signs: Last Vital Signs Temp 100.9 F H 01/15/21 11:00 Pulse 96 01/15/21 11:00 Resp 19 01/15/21 11:00 BP 164/74 H 01/15/21 11:00 Pulse Ox 98 01/15/21 11:00 Body Mass Index 34.2 General: AO X 3, no acute distress Resp: CTA bilateral CVS: S1,S2,RRR GI: soft, non tender, non distended Neuro: motor grossly intact Psych: appropriate affect Objective Data Current Medications Generic Name Dose Route Start Last Admin Trade Name Freq PRN Reason Stop Dose Admin Acetaminophen 650 mg 01/15/21 11:21 Acetaminophen 325 Mg Tablet PO Q8H PRN pain, fever Aspirin 81 mg 01/15/21 09:00 01/15/21 07:58 Aspirin Enteric Coated 81 Mg Tablet.Dr PO 81 mg DAILY DUANE Administration Atorvastatin Calcium 20 mg 01/15/21 09:00 01/15/21 07:58 Atorvastatin Calcium 20 Mg Tablet PO 20 mg DAILY [facility] Administration Benztropine Mesylate 1 mg 01/15/21 09:00 01/15/21 07:59 Benztropine Mesylate 1 Mg Tablet PO 1 mg BID DUANE Administration Fluphenazine Decanoate 50 mg 01/23/21 09:00 Fluphenazine Decanoate 25 Mg/Ml Vial IM Q21D [facility] Piperacillin Sod/Tazobactam 50 mls @ 100 mls/hr 01/15/21 02:00 01/15/21 08:43 Sod 3.375 gm/ Sodium Chloride IV Infused Q6H [facility] Infusion Dextrose/Sodium Chloride 1,000 mls @ 50 mls/hr 01/15/21 02:00 01/15/21 04:38 D51/2ns IVCONT 50 mls/hr .Q20H DUANE Administration Insulin Human Lispro 0 unit 01/15/21 07:30 01/15/21 07:59 Insulin Lispro 100 Unit/Ml 3 Ml Vial SUBCUT 2 unit QIDACHS DUANE Administration Protocol Ketorolac Tromethamine 1 drop 01/15/21 01:56 Ketorolac Tromethamine 0.5% Op 3 Ml Drops EYE-BOTH TID PRN Pain Letrozole 2.5 mg 01/15/21 09:00 01/15/21 07:58 Letrozole 2.5 Mg Tablet PO 2.5 mg DAILY [facility] Administration Lisinopril 10 mg 01/15/21 09:00 01/15/21 07:58 Lisinopril 10 Mg Tablet PO 10 mg DAILY [facility] Administration Protocol Meclizine HCl 25 mg 01/15/21 01:56 Meclizine Hcl 25 Mg Tablet PO TID PRN Dizziness Nortriptyline HCl 75 mg 01/15/21 21:00 Nortriptyline Hcl 25 Mg Capsule PO BEDTIME [facility] Omeprazole 20 mg 01/15/21 06:30 01/15/21 06:11 Omeprazole 20 Mg Capsule.Dr PO 20 mg DAILY@0630 [facility] Administration Sodium Chloride 3 ml 01/15/21 08:00 01/15/21 08:01 0.9 % Sodium Chloride Flush 3 Ml Syringe IVFLUSH Not Given QSHIFT [facility] Zolpidem Tartrate 5 mg 01/15/21 21:00 Zolpidem Tartrate 5 Mg Tablet PO BEDTIME [facility] Labs CBC & Chem 7: 01/15/21 06:45 01/15/21 06:45 Assessment and Plan (1) Fever: Status: Acute Assessment and Plan: 65F presented with fever. severe sepsis (POA, suspected, no source identified so far) empiric zosyn follow up cultures, id ua negative, cxr, ctabd negative liver cirrhosis probably CULLEN, stable DM inlin breast ca outpatient follow up
[2021-01-15] MEDS: Acetaminophen 325 MG TABLET 650 MG PO ×2 (11:54→20:17)
--- NOTE | 2021-01-15 12:24 | CONS_ITS ---
DATE OF SERVICE: 01/15/2021 REFERRING PHYSICIAN: Ryan Thrasher MD REASON FOR CONSULTATION: Elevated liver function tests. HISTORY OF PRESENT ILLNESS: The patient is a pleasant 65-year-old woman, who was admitted to the hospital on January 15 with complaints of nausea, vomiting, and abdominal pain. She reports the symptoms began the day of admission and she felt febrile at home. There was no hematemesis or melena. She has not had any ill contacts, travel or suspect food injections. She was evaluated in the emergency room with laboratory studies and had mild elevations of her liver function tests. CT scanning was obtained, which is reviewed. This is interpreted as showing changes consistent with hepatic cirrhosis without any focal liver pathology. The patient has a history of cirrhosis and underlying fatty liver and did undergo cholecystectomy in April of 2016 because of chronic cholecystitis and gallstones. At that time, the liver was noted to be nodular consistent with cirrhosis. The patient has no history of alcohol abuse. There is no family history of cirrhosis and she has no history of chronic liver disease from hepatitis or autoimmune liver disease. Previous evaluation with imaging studies has shown persistent fatty liver changes on ultrasound and CT scanning, which is likely the basis for her cirrhosis. She has not had complications of cirrhosis including hepatic encephalopathy, GI bleeding, or ascites. She reports prior to her recent illness, appetite was good and she has not had jaundice or pruritus. PAST MEDICAL HISTORY: 1. Hypertension. 2. Diabetes. 3. Hyperlipidemia. 4. Anxiety/depression. 5. Cirrhosis. 6. Breast cancer. 7. Hypercalcemia. 8. Diabetic nephropathy. 9. Multinodular goiter. CURRENT MEDICATIONS: Her current medication list is reviewed in the chart. ALLERGIES: METFORMIN. FAMILY HISTORY: This is reviewed with the patient and is noncontributory. SOCIAL HISTORY: There is no current tobacco, alcohol, or substance abuse. REVIEW OF SYSTEMS: SKIN: No pruritus. HEENT: Negative. CARDIOPULMONARY: She denies shortness of breath or chest pain. GASTROINTESTINAL: As above. GENITOURINARY: Negative. NEUROPSYCHIATRIC: Negative. PHYSICAL EXAMINATION: GENERAL: Shows a pleasant female, lying comfortably in bed. VITAL SIGNS: Reviewed in the electronic medical record and are stable. She did have a fever to 103 last night. SKIN: Anicteric. HEENT: Shows no scleral icterus. NECK: Without lymphadenopathy or thyromegaly. LUNGS: Clear. HEART: Shows regular rate and rhythm. S1, S2. No murmur. ABDOMEN: Soft without focal masses or tenderness. Bowel sounds are present. No organomegaly is noted. EXTREMITIES: Without edema. LABORATORY DATA: Reviewed. Liver function tests show a total bilirubin of 0.8, AST 75, ALT 95, alkaline phosphatase 236. CT scanning of the abdomen and pelvis shows liver to be nodular without any focal masses or ductal dilation. She is status post cholecystectomy. IMPRESSION: Elevated liver function tests. She appears to have hepatic cirrhosis likely on the basis of fatty liver based on previous evaluation. Her liver function tests are slightly more elevated than usual. This may reflect her underlying clinical situation with nausea and vomiting, which seems consistent with a gastroenteritis, likely viral. At this time, I would recommend obtaining further autoimmune and metabolic markers for evaluation for her liver disease. Her liver function tests should be monitored and consideration could be given to elective outpatient upper endoscopy because of her history of underlying cirrhosis to evaluate for esophageal varices. Thanks for asking me to see her. I will follow her in the hospital with you. MD MICHEAL Valente/WARREN / [id number] MTDD
[2021-01-15] MEDS: 0.9 % Sodium Chloride Flush 3 ML SYRINGE IVFLUSH ×2 (14:48→20:18)
[2021-01-15 16:08] LABS: Glucose, Whole Blood 256 mg/dL (60-115)
--- NOTE | 2021-01-15 17:37 | PC.NURSE ---
Pt home visiting nurse Nicole (ph [phone]) faxed over copy of updated medication record, compared to her medication list in DEC and appears up to date - will leave paper copy in pt chart. Visiting nurse is for med administration at home, pt does not have other services.
[2021-01-15] MEDS: Zolpidem Tartrate 5 MG TABLET PO (20:18)
[2021-01-15] MEDS: Nortriptyline HCl 25 MG CAPSULE 75 MG PO (20:18)
[2021-01-15 20:44] LABS: Glucose, Whole Blood 210 mg/dL (60-115)
--- NOTE | 2021-01-15 21:34 | W.PM.IDCN ---
History of Present Illness Data of Consult Service Date: 01/15/21 Requesting physician: Ryan Thrasher Primary Care Provider: Unknown Physician HPI Reason for consult: fever of unknown origin in patient with cancer She presents to hospital with day of nausea and vomiting. She has had no diarrhea mentioned She has mildly elevated LFTs and was seen by GI She has known cirrhosis and h/o appendectomy and cholycystectomy COVID is negative and no one else is ill Blood and urine cultures are negative She was started on Zosyn She also has history of left breast cancer Review of Systems Review of Systems: Yes all other systems are reviewed and are negative [facility] Past Medical History Medical History (Updated 01/15/21 @ 21:41 by Nanette Thompson MD) Bipolar disorder Diabetes mellitus Diabetes type 2, uncontrolled Diabetic nephropathy associated with type 2 diabetes mellitus Dyslipidemia Fever of unknown origin Hirsutism HTN (hypertension) Hypercalcemia Hyperlipidemia Hypertension Liver cirrhosis MCC (current) use of insulin Multinodular goiter (nontoxic) Obesity Urinary incontinence Family History Family History Father History of lung cancer Surgical History Surgical History History of appendectomy History of tonsillectomy History of tubal ligation Status post laser cataract surgery of both eyes Status post left breast lumpectomy Social History Social History Household Members: None Housing: Apartment Alcohol intake: current Alcohol intake frequency: holidays/special occasions only Smoking Status: Never smoker Tobacco Type: Cigarette Smoked in Last 30 Days: No Second Hand Smoke Exposure: No Use of substances other than those prescribed or required for medical reasons: Yes Currently Displaying Signs/Symptoms of Drug Intoxication Withdrawal: No Any prior treatment program specific to substance use: No Have you been hit, kicked, punched, or otherwise hurt by someone within the past year? If so, by whom?: No Do you feel safe in your current relationship?: No Current Relationship Is there a partner from a previous relationship who is making you feel unsafe now?: No Are you made to feel afraid or neglected: No Advance Directives: No Do you have thoughts of harming others: None Do you have a plan to hurt others: No Plan service: No Current occupational status: unemployed Meds Allergies Allergy/AdvReac Type Severity Reaction Status Date / Time metformin [METFORMIN] Allergy Intermediate ELEVATED Verified 01/14/21 23:16 LIVER ENZYMES, liver damage Active Medications: Current Medications Generic Name Dose Route Start Last Admin Trade Name Freq PRN Reason Stop Dose Admin Acetaminophen 650 mg 01/15/21 11:21 01/15/21 20:17 Acetaminophen 325 Mg Tablet PO 650 mg Q8H PRN Administration pain, fever Aspirin 81 mg 01/15/21 09:00 01/15/21 07:58 Aspirin Enteric Coated 81 Mg Tablet.Dr PO 81 mg DAILY [facility] Administration Atorvastatin Calcium 20 mg 01/15/21 09:00 01/15/21 07:58 Atorvastatin Calcium 20 Mg Tablet PO 20 mg DAILY [facility] Administration Benztropine Mesylate 1 mg 01/15/21 09:00 01/15/21 20:18 Benztropine Mesylate 1 Mg Tablet PO 1 mg BID [facility] Administration Fluphenazine Decanoate 50 mg 01/23/21 09:00 Fluphenazine Decanoate 25 Mg/Ml Vial IM Q21D [facility] Piperacillin Sod/Tazobactam 50 mls @ 100 mls/hr 01/15/21 02:00 01/15/21 20:59 Sod 3.375 gm/ Sodium Chloride IV Infused Q6H [facility] Infusion Insulin Human Lispro 0 unit 01/15/21 07:30 01/15/21 20:59 Insulin Lispro 100 Unit/Ml 3 Ml Vial SUBCUT 4 unit QIDACHS [facility] Administration Protocol Ketorolac Tromethamine 1 drop 01/15/21 01:56 Ketorolac Tromethamine 0.5% Op 3 Ml Drops EYE-BOTH TID PRN Pain Letrozole 2.5 mg 01/15/21 09:00 01/15/21 07:58 Letrozole 2.5 Mg Tablet PO 2.5 mg DAILY [facility] Administration Lisinopril 10 mg 01/15/21 09:00 01/15/21 07:58 Lisinopril 10 Mg Tablet PO 10 mg DAILY [facility] Administration Protocol Meclizine HCl 25 mg 01/15/21 01:56 Meclizine Hcl 25 Mg Tablet PO TID PRN Dizziness Nortriptyline HCl 75 mg 01/15/21 21:00 01/15/21 20:18 Nortriptyline Hcl 25 Mg Capsule PO 75 mg BEDTIME [facility] Administration Omeprazole 20 mg 01/15/21 06:30 01/15/21 06:11 Omeprazole 20 Mg Capsule.Dr PO 20 mg DAILY@0630 [facility] Administration Sodium Chloride 3 ml 01/15/21 08:00 01/15/21 20:18 0.9 % Sodium Chloride Flush 3 Ml Syringe IVFLUSH 3 ml QSHIFT [facility] Administration Zolpidem Tartrate 5 mg 01/15/21 21:00 01/15/21 20:18 Zolpidem Tartrate 5 Mg Tablet PO 5 mg BEDTIME [facility] Administration Home Medications Medication Instructions Recorded Confirmed Last Taken Type acetaminophen 1 - 2 tab PO Q8H PRN 08/06/20 01/14/21 01/14/21 History aspirin 1 tab PO DAILY 08/06/20 01/14/21 01/14/21 History atorvastatin 1 tab PO DAILY 08/06/20 01/14/21 01/14/21 History benztropine 1 tab PO BID 08/06/20 01/14/21 01/13/21 History fluphenazine decanoate 50 mg IM Q3W 08/06/20 01/14/21 Unknown History ketorolac 1 drp OPHTHALMIC (EYE) TID PRN 08/06/20 01/14/21 Unknown History letrozole [Femara] 1 tab PO DAILY 08/06/20 01/14/21 01/14/21 History lisinopril 1 tab PO DAILY 08/06/20 01/14/21 01/14/21 History meclizine 25 mg PO TID PRN 08/06/20 01/14/21 Unknown History nortriptyline 1 cap PO BEDTIME 08/06/20 01/14/21 01/14/21 History omeprazole 1 cap PO DAILY 08/06/20 01/14/21 01/14/21 History semaglutide [Ozempic] 1 mg SUBCUT QWEEK 08/06/20 01/14/21 Unknown History zolpidem [Ambien] 5 mg PO BEDTIME 08/06/20 01/14/21 01/13/21 History diclofenac sodium 2 g TOPICAL BID 01/14/21 01/14/21 01/14/21 History insulin aspart U-100 [Novolog 30 unit SUBCUT TID 01/14/21 01/14/21 01/14/21 History Flexpen U-100 Insulin] insulin degludec [Tresiba 140 unit SUBCUT DAILY 01/14/21 01/14/21 01/14/21 History FlexTouch U-200] Physical Exam Vital Signs: Vital Signs: Last Vital Signs Temp 101 F H 01/15/21 21:19 Pulse 108 H 01/15/21 19:41 Resp 15 01/15/21 19:41 BP 123/54 L 01/15/21 19:41 Pulse Ox 97 01/15/21 19:41 Body Mass Index 34.2 Const: General: cooperative Orientation/consciousness: patient oriented x3 HENMT: Head: Yes normal to inspection General nose exam: Normal external nose present Mouth: Normal oral and palatal mucosa present Eyes: General: appearance normal, both eyes and all related structures Cardio: Rate: regular rate Rhythm: regular rhythm GI: Palpation (GI): Soft to palpation, nontender and no hepatosplenomegaly : General: Yes no CVA tenderness Back/Spine/Pelvis: Back: no CVA tenderness Skin: General skin exam: no rashes or lesions noted Neuro: General: patient oriented x3 Results Labs CBC & Chem 7: 01/15/21 06:45 01/15/21 06:45 Labs: Short CBC 01/14/21 01/15/21 Range/Units 22:51 06:45 WBC 15.7 H 14.7 H (4.8-10.8) X10*3/uL Hgb 13.2 11.1 L (12.0-16.0) g/dl Hct 39.9 34.6 L (37-47) % Plt Count 230 183 (160-400) X10*3/uL [facility] 01/14/21 01/15/21 22:51 06:45 Sodium 134 L 139 Potassium 4.6 4.5 Chloride 100 106 Carbon Dioxide 25 25 BUN 24 H 22 H Creatinine 0.94 0.80 Calcium 9.9 8.7 D Liver Function 01/14/21 Range/Units 22:51 Total Bilirubin 0.8 (0.0-1.0) mg/dL Direct Bilirubin 0.4 (0.0-0.5) mg/dL AST 75 H (5-31) U/L ALT 95 H (0-31) U/L Alkaline Phosphatase 236 H D (39-117) U/L Albumin 4.2 (3.5-5.0) g/dL Urine 01/15/21 Range/Units 01:08 Urine Color YELLOW Urine Appearance CLEAR Urine pH 7.0 (5.0-8.0) Ur Specific [place] <= 1.005 (1.005-1.025) Urine Protein NEG (NEG-TRACE) MG/DL Urine Glucose (UA) NEG (NEG) MG/DL Assessment and Plan (1) Nausea & vomiting: Status: Acute (2) Fever of unknown origin: Problem details: She has fever with only mild elevated LFTs There is no evidence of tick bite She has no history of Hepatitis C CT abdomen and pelvis do not show any abnormalities like liver absess She doesnt seem to have SBP as ascites not present She may possibly have viral syndrom Status: Acute Stop antibiotics tomorrow if blood cultures negative and supportive care Adjust antibiotics if culture positive
[2021-01-16] VITALS (8 sets, daily range): BP systolic 106–140; BP diastolic 47–68; PULSE 86–103; RESP 16–20; TEMP 36.9–37.9; O2SAT 94–98
[2021-01-16] MEDS: Piperacillin Sodium/Tazobactam 3.375 GM in 0.9 % Sodium Chloride 50 ML IV (01:55)
[2021-01-16 05:07] LABS: MANUAL DIFF FLAG NO
[2021-01-16 05:09] LABS: Basophils Percent Auto 0.3 % (0-2); Eosinophils Percent Auto 0.5 % (0-4); Hematocrit 35.2 % (37-47); Hemoglobin 11.3 g/dl (12.0-16.0); Imm Gran Abs Auto 0.02 X10*3/uL (0.00-0.03); Imm Gran Pct Auto 0.3 % (0.0-0.4); Lymphocytes Percent Auto 13.1 % (20-40); Mean Corpuscular HGB Conc 32.1 g/dl (31.0-35.0); Mean Corpuscular Hemoglobin 26.4 pg (27.0-33.0); Mean Corpuscular Volume 82.2 fL (80-98); Mean Platelet Volume 10.4 fL (9.4-12.3); Monocytes Absolute Auto 0.6 X10*3/uL (0.1-1.2); Monocytes Percent Auto 7.8 % (2-11); Platelet Count 163 X10*3/uL (160-400); Red Blood Count 4.28 X10*6/uL (4.20-5.50); Red Cell Distribution Width 14.4 % (11.0-16.0); White Blood Count 7.7 X10*3/uL (4.8-10.8)
[2021-01-16] MEDS: Omeprazole 20 MG CAPSULE.DR PO (05:33)
[2021-01-16 05:49] LABS: Iron 25 mcg/dL (30-160); Percent Iron Saturation 9 % (15-50); Total Iron Binding Capacity 291 mcg/dL (228-428); Unsaturated Iron Binding 266 ug/dL
[2021-01-16 06:09] LABS: Ferritin 191 ng/mL (10-250)
[2021-01-16 06:11] LABS: Anion Gap 12 (12-20); Blood Urea Nitrogen 14 mg/dL (9-16); Calcium 9.2 mg/dL (8.4-10.2); Carbon Dioxide 23 mmol/L (22-29); Chloride 105 mmol/L (96-108); Creatinine Clr Calc Pharmacy 77.6; Estimated Glomerular Filt Rate > 60; Glucose Fasting 173 mg/dL (60-99); Potassium 4.4 mmol/L (3.3-5.1); Sodium 136 mmol/L (135-145)
[2021-01-16 07:24] LABS: Glucose, Whole Blood 190 mg/dL (60-115)
[2021-01-16] MEDS: Insulin Lispro 100 UNIT/ML 3 ML VIAL SUBCUT ×4 (08:01→22:18)
[2021-01-16 08:29] LABS: Hepatitis A Antibody IgM 0.72 Index (0-0.79); ~Hepatitis A Antibody IgM Nonreactive (Nonreactive)
[2021-01-16 08:48] LABS: ~HepC Num1 0.07 S/CO (0.00-0.79)
[2021-01-16] MEDS: Aspirin Enteric Coated 81 MG TABLET.DR PO (09:34)
[2021-01-16] MEDS: 0.9 % Sodium Chloride Flush 3 ML SYRINGE IVFLUSH ×2 (09:34→16:36)
[2021-01-16] MEDS: lisinopriL 10 MG TABLET PO (09:34)
[2021-01-16] MEDS: Atorvastatin Calcium 20 MG TABLET PO (09:35)
[2021-01-16] MEDS: Acetaminophen 325 MG TABLET 650 MG PO (09:35)
[2021-01-16] MEDS: Letrozole 2.5 MG TABLET PO (09:36)
[2021-01-16] MEDS: Benztropine Mesylate 1 MG TABLET PO ×2 (09:36→22:18)
--- NOTE | 2021-01-16 09:49 | P.PNIM_ITS ---
Subjective Subjective Date of Service: 01/16/21 Interval History: complaining of rash Cardiovascular Cardiovascular: Reports no additional cardiovascular complaints Gastrointestinal Gastrointestinal: Reports no additional gastrointestinal complaints Physical Exam Vital Signs: Vital Signs: Last Vital Signs Temp 100.3 F 01/16/21 07:17 Pulse 103 H 01/16/21 07:17 Resp 19 01/16/21 07:17 BP 140/65 H 01/16/21 07:17 Pulse Ox 94 01/16/21 07:17 Body Mass Index 34.2 General: AO X 3, no acute distress Resp: CTA bilateral CVS: S1,S2,RRR GI: soft, non tender, non distended Neuro: motor grossly intact Psych: appropriate affect skin: no obvious rash, patient pointing to right shoulder, but do not see any abnormality Objective Data Current Medications Generic Name Dose Route Start Last Admin Trade Name Freq PRN Reason Stop Dose Admin Acetaminophen 650 mg 01/15/21 11:21 01/16/21 09:35 Acetaminophen 325 Mg Tablet PO 650 mg Q8H PRN Administration pain, fever Aspirin 81 mg 01/15/21 09:00 01/16/21 09:34 Aspirin Enteric Coated 81 Mg Tablet.Dr PO 81 mg DAILY [facility] Administration Atorvastatin Calcium 20 mg 01/15/21 09:00 01/16/21 09:35 Atorvastatin Calcium 20 Mg Tablet PO 20 mg DAILY [facility] Administration Benztropine Mesylate 1 mg 01/15/21 09:00 01/16/21 09:36 Benztropine Mesylate 1 Mg Tablet PO 1 mg BID [facility] Administration Fluphenazine Decanoate 50 mg 01/23/21 09:00 Fluphenazine Decanoate 25 Mg/Ml Vial IM Q21D [facility] Insulin Human Lispro 0 unit 01/15/21 07:30 01/16/21 08:01 Insulin Lispro 100 Unit/Ml 3 Ml Vial SUBCUT 2 unit QIDACHS [facility] Administration Protocol Ketorolac Tromethamine 1 drop 01/15/21 01:56 Ketorolac Tromethamine 0.5% Op 3 Ml Drops EYE-BOTH TID PRN Pain Letrozole 2.5 mg 01/15/21 09:00 01/16/21 09:36 Letrozole 2.5 Mg Tablet PO 2.5 mg DAILY [facility] Administration Lisinopril 10 mg 01/15/21 09:00 01/16/21 09:34 Lisinopril 10 Mg Tablet PO 10 mg DAILY [facility] Administration Protocol Meclizine HCl 25 mg 01/15/21 01:56 Meclizine Hcl 25 Mg Tablet PO TID PRN Dizziness Nortriptyline HCl 75 mg 01/15/21 21:00 01/15/21 20:18 Nortriptyline Hcl 25 Mg Capsule PO 75 mg BEDTIME [facility] Administration Omeprazole 20 mg 01/15/21 06:30 01/16/21 05:33 Omeprazole 20 Mg Capsule.Dr PO 20 mg DAILY@0630 [facility] Administration Sodium Chloride 3 ml 01/15/21 08:00 01/16/21 09:34 0.9 % Sodium Chloride Flush 3 Ml Syringe IVFLUSH 3 ml QSHIFT [facility] Administration Zolpidem Tartrate 5 mg 01/15/21 21:00 01/15/21 20:18 Zolpidem Tartrate 5 Mg Tablet PO 5 mg BEDTIME [facility] Administration Labs CBC & Chem 7: 01/16/21 04:53 01/16/21 04:53 Microbiology Microbiology Results: Microbiology 01/14/21 22:44 Blood - Venous Blood Culture - Preliminary No growth after 24 hours. 01/14/21 22:51 Blood - Venous Blood Culture - Preliminary No growth after 24 hours. Assessment and Plan (1) Fever: Status: Acute Assessment and Plan: 65F presented with fever. severe sepsis (POA, suspected, no source identified so far) cultures negative so far, ID appreciated, will hold zosyn for now and monitor ua negative, cxr, ctabd negative patient reporting rash, but none visible, will monitor liver cirrhosis probably CULLEN, stable DM [facility] breast [facility] outpatient follow up
[2021-01-16 11:24] LABS: Glucose, Whole Blood 250 mg/dL (60-115)
--- NOTE | 2021-01-16 13:54 | MHC.CM.PN ---
PER PHYSICIAN ROUNDS, STILL SEEKING INFO FOR FEVER ORIGIN. [facility] UPDATED IN [facility].
[2021-01-16 16:11] LABS: Glucose, Whole Blood 190 mg/dL (60-115)
[2021-01-16] MEDS: Clindamycin Phosphate/D5W 600 MG/50 ML PIGGYBACK 100 MG IV ×2 (16:35→22:17)
--- NOTE | 2021-01-16 16:35 | PM.IDPN ---
Subjective Subjective Date of Service: 01/27/21 Interval History: she complains of rash on back Objective Data Labs CBC & Chem 7: 01/18/21 07:10 01/18/21 07:10 Labs: Laboratory Results - last 24 hr 01/15/21 01/15/21 01/16/21 04:06 20:31 04:53 WBC RBC Hgb Hct MCV MCH MCHC RDW Plt Count MPV Immature Gran % (Auto) Neut % (Auto) Lymph % (Auto) [place] % (Auto) Eos % (Auto) Baso % (Auto) Lymph # (Auto) [place] # (Auto) Eos # (Auto) Baso # (Auto) Abs Immat Gran (auto) Absolute Neuts (auto) Absolute Nucleated RBC Nucleated RBC % (auto) Sodium 136 Potassium 4.4 Chloride 105 Carbon Dioxide 23 Anion Gap 12 BUN 14 Creatinine 0.72 Estim Creat Clear Calc 77.6 Estimated GFR > 60 POC Glucose 210 H Fasting Glucose 173 H Calcium 9.2 Magnesium 2.0 Iron TIBC % Saturation Unsat Iron Binding Ferritin Hepatitis A IgM Ab Nonreactive 01/16/21 01/16/21 01/16/21 04:53 04:53 07:16 WBC 7.7 RBC 4.28 Hgb 11.3 L Hct 35.2 L MCV 82.2 MCH 26.4 L MCHC 32.1 RDW 14.4 Plt Count 163 MPV 10.4 Immature Gran % (Auto) 0.3 Neut % (Auto) 78.0 H Lymph % (Auto) 13.1 L [place] % (Auto) 7.8 Eos % (Auto) 0.5 Baso % (Auto) 0.3 Lymph # (Auto) 1.0 L [place] # (Auto) 0.6 Eos # (Auto) 0.0 Baso # (Auto) 0.0 Abs Immat Gran (auto) 0.02 Absolute Neuts (auto) 6.0 Absolute Nucleated RBC 0.000 Nucleated RBC % (auto) 0.0 Sodium Potassium Chloride Carbon Dioxide Anion Gap BUN Creatinine Estim Creat Clear Calc Estimated GFR POC Glucose 190 H Fasting Glucose Calcium Magnesium Iron 25 L TIBC 291 % Saturation 9 L Unsat Iron Binding 266 Ferritin 191 Hepatitis A IgM Ab 01/16/21 01/16/21 11:19 16:07 WBC RBC Hgb Hct MCV MCH MCHC RDW Plt Count MPV Immature Gran % (Auto) Neut % (Auto) Lymph % (Auto) [place] % (Auto) Eos % (Auto) Baso % (Auto) Lymph # (Auto) [place] # (Auto) Eos # (Auto) Baso # (Auto) Abs Immat Gran (auto) Absolute Neuts (auto) Absolute Nucleated RBC Nucleated RBC % (auto) Sodium Potassium Chloride Carbon Dioxide Anion Gap BUN Creatinine Estim Creat Clear Calc Estimated GFR POC Glucose 250 H 190 H Fasting Glucose Calcium Magnesium Iron TIBC % Saturation Unsat Iron Binding Ferritin Hepatitis A IgM Ab Microbiology Microbiology Results: Microbiology 01/15/21 Unknown Urine clean catch - Clean Catch Midstream Urine Culture - Final 01/14/21 22:44 Blood - Venous Blood Culture - Preliminary No growth after 24 hours. 01/14/21 22:51 Blood - Venous Blood Culture - Preliminary No growth after 24 hours. Physical Exam Vital Signs: Vital Signs: Last Vital Signs Temp 98.7 F 01/16/21 15:11 Pulse 86 01/16/21 15:11 Resp 16 01/16/21 15:11 BP 109/52 L 01/16/21 15:11 Pulse Ox 96 01/16/21 15:11 Body Mass Index 34.2 Const: General: cooperative Resp: Effort & Inspection: normal respiratory effort Cardio: Rate: regular rate Rhythm: regular rhythm GI: Palpation (GI): Soft to palpation and nontender Skin: Other: rash left arm front to back area,6 cm Assessment and Plan Assessment and plan (1) Fever of unknown origin: Problem details: She has fever improving today Possible rash around left breast area,radiating to back,possible strep infection Status: Acute Assessment and Plan: Clindamycin 600 mg tid IV and then po Clindamycin 300 mg tid for a week po Time Spent With Patient Time: Total time spent is greater than 50% in coordination of care (as documented) at patient's floor/unit and/or counseling patient: Time with patient: 15 - 24 minutes
[2021-01-16 20:41] LABS: Glucose, Whole Blood 228 mg/dL (60-115)
[2021-01-16] MEDS: Zolpidem Tartrate 5 MG TABLET PO (22:17)
[2021-01-16] MEDS: Nortriptyline HCl 25 MG CAPSULE 75 MG PO (22:18)
[2021-01-17] MEDS: 0.9 % Sodium Chloride Flush 3 ML SYRINGE IVFLUSH ×3 (01:31→13:12)
[2021-01-17 03:08] VITALS: BP 124/50; PULSE 94; RESP 18; TEMP 37.7; O2SAT 97
[2021-01-17 06:22] LABS: MANUAL DIFF FLAG NO
[2021-01-17 06:26] LABS: Basophils Percent Auto 0.4 % (0-2); Eosinophils Absolute Auto 0.1 X10*3/uL (0.0-0.4); Eosinophils Percent Auto 1.8 % (0-4); Hematocrit 33.1 % (37-47); Hemoglobin 10.9 g/dl (12.0-16.0); Imm Gran Abs Auto 0.03 X10*3/uL (0.00-0.03); Imm Gran Pct Auto 0.4 % (0.0-0.4); Lymphocytes Absolute Auto 1.4 X10*3/uL (1.2-4.9); Lymphocytes Percent Auto 19.7 % (20-40); Mean Corpuscular HGB Conc 32.9 g/dl (31.0-35.0); Mean Corpuscular Hemoglobin 26.8 pg (27.0-33.0); Mean Corpuscular Volume 81.3 fL (80-98); Mean Platelet Volume 10.5 fL (9.4-12.3); Monocytes Absolute Auto 0.5 X10*3/uL (0.1-1.2); Monocytes Percent Auto 7.6 % (2-11); Neutrophils Absolute Auto 4.8 X10*3/uL (2.0-8.3); Neutrophils Percent Auto 70.1 % (45-73); Platelet Count 182 X10*3/uL (160-400); Red Blood Count 4.07 X10*6/uL (4.20-5.50); Red Cell Distribution Width 13.9 % (11.0-16.0); White Blood Count 6.8 X10*3/uL (4.8-10.8)
[2021-01-17] MEDS: Clindamycin Phosphate/D5W 600 MG/50 ML PIGGYBACK 100 MG IV ×3 (06:40→21:35)
[2021-01-17] MEDS: Omeprazole 20 MG CAPSULE.DR PO (06:46)
[2021-01-17 06:50] LABS: Anion Gap 10 (12-20); Blood Urea Nitrogen 16 mg/dL (9-16); Calcium 9.2 mg/dL (8.4-10.2); Carbon Dioxide 27 mmol/L (22-29); Chloride 104 mmol/L (96-108); Creatinine Clr Calc Pharmacy 71.7; Estimated Glomerular Filt Rate > 60; Glucose Fasting 218 mg/dL (60-99); Potassium 4.4 mmol/L (3.3-5.1); Sodium 137 mmol/L (135-145)
[2021-01-17 07:31] VITALS: BP 117/65; PULSE 94; RESP 18; TEMP 36.7; O2SAT 96
[2021-01-17 07:47] LABS: Glucose, Whole Blood 241 mg/dL (60-115)
[2021-01-17] MEDS: Benztropine Mesylate 1 MG TABLET PO ×2 (08:26→21:36)
[2021-01-17] MEDS: lisinopriL 10 MG TABLET PO (08:26)
[2021-01-17] MEDS: Atorvastatin Calcium 20 MG TABLET PO (08:26)
[2021-01-17] MEDS: Letrozole 2.5 MG TABLET PO (08:26)
[2021-01-17] MEDS: Aspirin Enteric Coated 81 MG TABLET.DR PO (08:26)
[2021-01-17] MEDS: Insulin Lispro 100 UNIT/ML 3 ML VIAL SUBCUT ×4 (08:26→21:35)
--- NOTE | 2021-01-17 09:43 | P.PNIM_ITS ---
Subjective Subjective Date of Service: 01/17/21 Interval History: feeling better Cardiovascular Cardiovascular: Reports no additional cardiovascular complaints Gastrointestinal Gastrointestinal: Reports no additional gastrointestinal complaints Physical Exam Vital Signs: Vital Signs: Last Vital Signs Temp 98.1 F 01/17/21 07:31 Pulse 94 01/17/21 07:31 Resp 18 01/17/21 07:31 BP 117/65 01/17/21 07:31 Pulse Ox 96 01/17/21 07:31 Body Mass Index 34.2 General: AO X 3, no acute distress Resp: CTA bilateral CVS: S1,S2,RRR GI: soft, non tender, non distended Neuro: motor grossly intact Psych: appropriate affect Objective Data Current Medications Generic Name Dose Route Start Last Admin Trade Name Freq PRN Reason Stop Dose Admin Acetaminophen 650 mg 01/15/21 11:21 01/16/21 09:35 Acetaminophen 325 Mg Tablet PO 650 mg Q8H PRN Administration pain, fever Aspirin 81 mg 01/15/21 09:00 01/17/21 08:26 Aspirin Enteric Coated 81 Mg Tablet.Dr PO 81 mg DAILY [facility] Administration Atorvastatin Calcium 20 mg 01/15/21 09:00 01/17/21 08:26 Atorvastatin Calcium 20 Mg Tablet PO 20 mg DAILY [facility] Administration Benztropine Mesylate 1 mg 01/15/21 09:00 01/17/21 08:26 Benztropine Mesylate 1 Mg Tablet PO 1 mg BID [facility] Administration Fluphenazine Decanoate 50 mg 01/23/21 09:00 Fluphenazine Decanoate 25 Mg/Ml Vial IM Q21D [facility] Clindamycin Phosphate 600 mg in 50 mls @ 100 mls/hr 01/16/21 14:00 01/17/21 07:30 Cleocin IV Infused Q8H [facility] Infusion Insulin Human Lispro 0 unit 01/15/21 07:30 01/17/21 08:26 Insulin Lispro 100 Unit/Ml 3 Ml Vial SUBCUT 4 unit QIDACHS [facility] Administration Protocol Ketorolac Tromethamine 1 drop 01/15/21 01:56 Ketorolac Tromethamine 0.5% Op 3 Ml Drops EYE-BOTH TID PRN Pain Letrozole 2.5 mg 01/15/21 09:00 01/17/21 08:26 Letrozole 2.5 Mg Tablet PO 2.5 mg DAILY [facility] Administration Lisinopril 10 mg 01/15/21 09:00 01/17/21 08:26 Lisinopril 10 Mg Tablet PO 10 mg DAILY [facility] Administration Protocol Meclizine HCl 25 mg 01/15/21 01:56 Meclizine Hcl 25 Mg Tablet PO TID PRN Dizziness Nortriptyline HCl 75 mg 01/15/21 21:00 01/16/21 22:18 Nortriptyline Hcl 25 Mg Capsule PO 75 mg BEDTIME [facility] Administration Omeprazole 20 mg 01/15/21 06:30 01/17/21 06:46 Omeprazole 20 Mg Capsule.Dr PO 20 mg DAILY@0630 [facility] Administration Sodium Chloride 3 ml 01/15/21 08:00 01/17/21 08:26 0.9 % Sodium Chloride Flush 3 Ml Syringe IVFLUSH 3 ml QSHIFT [facility] Administration Zolpidem Tartrate 5 mg 01/15/21 21:00 01/16/21 22:17 Zolpidem Tartrate 5 Mg Tablet PO 5 mg BEDTIME [facility] Administration Labs CBC & Chem 7: 01/17/21 05:54 01/17/21 05:54 Microbiology Microbiology Results: Microbiology 01/14/21 22:44 Blood - Venous Blood Culture - Preliminary No growth after 48 hours. 01/14/21 22:51 Blood - Venous Blood Culture - Preliminary No growth after 48 hours. 01/15/21 Unknown Urine clean catch - Clean Catch Midstream Urine Culture - Final Assessment and Plan (1) Fever: Status: Acute Assessment and Plan: 65F presented with fever. severe sepsis (POA, suspected, no source identified so far) possibly cellulitis cultures negative so far, ID appreciated, continue clinda, if aferbrile another 24hrs will change to po ua negative, cxr, ctabd negative liver cirrhosis probably [facility]EN, [facility]
[2021-01-17 12:00] VITALS: BP 107/57; PULSE 83; RESP 18; TEMP 36.6; O2SAT 95
[2021-01-17 12:00] LABS: Glucose, Whole Blood 262 mg/dL (60-115)
[2021-01-17 15:20] VITALS: BP 117/63; PULSE 80; RESP 20; TEMP 36.5; O2SAT 96
[2021-01-17 16:36] LABS: Glucose, Whole Blood 226 mg/dL (60-115)
[2021-01-17 19:22] LABS: Anti Nuclear Antibody Screen NEGATIVE (NEGATIVE)
[2021-01-17 19:41] VITALS: BP 135/63; PULSE 84; RESP 20; TEMP 36.3; O2SAT 99
[2021-01-17 20:32] LABS: Glucose, Whole Blood 242 mg/dL (60-115)
[2021-01-17] MEDS: Zolpidem Tartrate 5 MG TABLET PO (21:36)
[2021-01-17] MEDS: Nortriptyline HCl 25 MG CAPSULE 75 MG PO (21:36)
[2021-01-18] VITALS: BP 146/46; PULSE 89; RESP 18; TEMP 36.3; O2SAT 95
[2021-01-18] MEDS: 0.9 % Sodium Chloride Flush 3 ML SYRINGE IVFLUSH ×2 (00:20→08:01)
[2021-01-18 03:32] VITALS: BP 149/80; PULSE 83; RESP 18; TEMP 36.2; O2SAT 98
[2021-01-18] MEDS: Clindamycin Phosphate/D5W 600 MG/50 ML PIGGYBACK 100 MG IV (06:06)
[2021-01-18] MEDS: Omeprazole 20 MG CAPSULE.DR PO (06:06)
[2021-01-18 07:49] LABS: MANUAL DIFF FLAG NO
[2021-01-18 07:55] LABS: Basophils Percent Auto 0.5 % (0-2); Eosinophils Absolute Auto 0.2 X10*3/uL (0.0-0.4); Eosinophils Percent Auto 2.5 % (0-4); Hematocrit 39.5 % (37-47); Hemoglobin 12.5 g/dl (12.0-16.0); Imm Gran Abs Auto 0.03 X10*3/uL (0.00-0.03); Imm Gran Pct Auto 0.4 % (0.0-0.4); Lymphocytes Absolute Auto 1.5 X10*3/uL (1.2-4.9); Lymphocytes Percent Auto 19.8 % (20-40); Mean Corpuscular HGB Conc 31.6 g/dl (31.0-35.0); Mean Corpuscular Volume 82.3 fL (80-98); Mean Platelet Volume 10.8 fL (9.4-12.3); Monocytes Absolute Auto 0.6 X10*3/uL (0.1-1.2); Monocytes Percent Auto 8.3 % (2-11); Neutrophils Percent Auto 68.5 % (45-73); Platelet Count 190 X10*3/uL (160-400); White Blood Count 7.3 X10*3/uL (4.8-10.8)
[2021-01-18 08:00] VITALS: BP 163/56; PULSE 82; RESP 18; TEMP 36.1; O2SAT 97
[2021-01-18] MEDS: Atorvastatin Calcium 20 MG TABLET PO (08:00)
[2021-01-18] MEDS: lisinopriL 10 MG TABLET PO (08:00)
[2021-01-18] MEDS: Insulin Lispro 100 UNIT/ML 3 ML VIAL SUBCUT (08:00)
[2021-01-18] MEDS: Letrozole 2.5 MG TABLET PO (08:00)
[2021-01-18 08:01] LABS: Glucose, Whole Blood 228 mg/dL (60-115)
[2021-01-18] MEDS: Benztropine Mesylate 1 MG TABLET PO (08:01)
[2021-01-18] MEDS: Aspirin Enteric Coated 81 MG TABLET.DR PO (08:01)
[2021-01-18 08:13] LABS: Anion Gap 16 (12-20); Blood Urea Nitrogen 13 mg/dL (9-16); Calcium 9.7 mg/dL (8.4-10.2); Carbon Dioxide 24 mmol/L (22-29); Chloride 103 mmol/L (96-108); Creatinine Clr Calc Pharmacy 79.8; Estimated Glomerular Filt Rate > 60; Glucose Fasting 212 mg/dL (60-99); Sodium 138 mmol/L (135-145)
--- NOTE | 2021-01-18 09:31 | PM.DS ---
DS: Providers Provider Date of Service: 01/18/21 Date of admission: 01/15/21 01:53 Primary care physician: Unknown Physician Consults: 01/15/21 01:48 Consult to Infectious Diseases Routine Consulting Provider: Nanette Thompson Reason for consultation: fever; unclear source 01/15/21 02:35 Consult to Hematology / Oncology Routine Consulting Provider: Darin Ayoub Reason for consultation: breast ca DS: Diagnosis Discharge Diagnosis (1) Diabetes type 2, uncontrolled: Status: Acute (2) Liver cirrhosis: Status: Inactive (3) Severe sepsis: Status: Acute (4) Cellulitis: Status: Acute DS: Medications Discharge Medications Home Medications: Home Medications Medication Instructions Recorded Confirmed Ozempic 1 mg SUBCUT QWEEK 08/06/20 01/14/21 acetaminophen 1 - 2 tab PO Q8H PRN 08/06/20 01/14/21 aspirin 1 tab PO DAILY 08/06/20 01/14/21 atorvastatin 1 tab PO DAILY 08/06/20 01/14/21 benztropine 1 tab PO BID 08/06/20 01/14/21 fluphenazine decanoate 50 mg IM Q3W 08/06/20 01/14/21 ketorolac 1 drp OPHTHALMIC (EYE) TID PRN 08/06/20 01/14/21 letrozole [Femara] 1 tab PO DAILY 08/06/20 01/14/21 lisinopril 1 tab PO DAILY 08/06/20 01/14/21 meclizine 25 mg PO TID PRN 08/06/20 01/14/21 nortriptyline 1 cap PO BEDTIME 08/06/20 01/14/21 omeprazole 1 cap PO DAILY 08/06/20 01/14/21 zolpidem [Ambien] 5 mg PO BEDTIME 08/06/20 01/14/21 Tresiba FlexTouch U-200 140 unit SUBCUT DAILY 01/14/21 01/14/21 diclofenac sodium 2 g TOPICAL BID 01/14/21 01/14/21 insulin aspart U-100 [Novolog 30 unit SUBCUT TID 01/14/21 01/14/21 Flexpen U-100 Insulin] Previous Rx's Medication Instructions Recorded pen needle, diabetic 32 gauge x #400 ea 08/12/20 meloxicam 7.5 mg tablet 7.5 mg PO DAILY 30 Days #30 tab 10/13/20 blood sugar diagnostic #100 ea 01/01/21 clindamycin HCl 300 mg PO TID #21 cap 01/18/21 DS: Summary Hospital Course Hospital Course: Patient was admitted for severe sepsis. Initially source was unclear. She was treated empirically with Zosyn and then given drug holiday but continued to have fevers. She was evaluated by infectious disease who found cellulitic rash over breast. Patient was started on IV clindamycin and sepsis resolved as did rash. Patient is feeling much better now and will be discharged home on 7 more days of oral clindamycin. Time Spent with Patient Time attestation: Total time spent providing and/or coordinating discharge services: Discharge coordination time: Greater than 30 minutes Physical Exam Vital Signs: Vital Signs: Last Vital Signs Temp 96.9 F 01/18/21 08:00 Pulse 82 01/18/21 08:00 Resp 18 01/18/21 08:00 BP 163/56 H 01/18/21 08:00 Pulse Ox 97 01/18/21 08:00 Body Mass Index 34.2 General: AO X 3, no acute distress Resp: CTA bilateral CVS: S1,S2,RRR GI: soft, non tender, non distended Neuro: motor grossly intact Psych: appropriate affect DS: Data Data Completed and Pending Labs on day of discharge: Laboratory Results - last 24 hr 01/16/21 01/17/21 01/17/21 04:53 11:45 16:33 WBC RBC Hgb Hct MCV MCH MCHC RDW Plt Count MPV Immature Gran % (Auto) Neut % (Auto) Lymph % (Auto) [place] % (Auto) Eos % (Auto) Baso % (Auto) Lymph # (Auto) [place] # (Auto) Eos # (Auto) Baso # (Auto) Abs Immat Gran (auto) Absolute Neuts (auto) Absolute Nucleated RBC Nucleated RBC % (auto) Sodium Potassium Chloride Carbon Dioxide Anion Gap BUN Creatinine Estim Creat Clear Calc Estimated GFR POC Glucose 262 H 226 H Fasting Glucose Calcium FLORA Screen NEGATIVE FLORA Titer TNP FLORA Titer 2 TNP FLORA Titer 3 TNP FLORA Pattern TNP FLORA Pattern 2 TNP FLORA Pattern 3 TNP 01/17/21 01/18/21 01/18/21 20:23 07:10 07:10 WBC 7.3 RBC 4.80 Hgb 12.5 Hct 39.5 MCV 82.3 MCH 26.0 L MCHC 31.6 RDW 14.0 Plt Count 190 MPV 10.8 Immature Gran % (Auto) 0.4 Neut % (Auto) 68.5 Lymph % (Auto) 19.8 L [place] % (Auto) 8.3 Eos % (Auto) 2.5 Baso % (Auto) 0.5 Lymph # (Auto) 1.5 [place] # (Auto) 0.6 Eos # (Auto) 0.2 Baso # (Auto) 0.0 Abs Immat Gran (auto) 0.03 Absolute Neuts (auto) 5.0 Absolute Nucleated RBC 0.000 Nucleated RBC % (auto) 0.0 Sodium 138 Potassium 5.0 Chloride 103 Carbon Dioxide 24 Anion Gap 16 BUN 13 Creatinine 0.70 Estim Creat Clear Calc 79.8 Estimated GFR > 60 POC Glucose 242 H Fasting Glucose 212 H Calcium 9.7 FLORA Screen FLORA Titer FLORA Titer 2 FLORA Titer 3 FLORA Pattern FLORA Pattern 2 FLORA Pattern 3 01/18/21 07:53 WBC RBC Hgb Hct MCV MCH MCHC RDW Plt Count MPV Immature Gran % (Auto) Neut % (Auto) Lymph % (Auto) [place] % (Auto) Eos % (Auto) Baso % (Auto) Lymph # (Auto) [place] # (Auto) Eos # (Auto) Baso # (Auto) Abs Immat Gran (auto) Absolute Neuts (auto) Absolute Nucleated RBC Nucleated RBC % (auto) Sodium Potassium Chloride Carbon Dioxide Anion Gap BUN Creatinine Estim Creat Clear Calc Estimated GFR POC Glucose 228 H Fasting Glucose Calcium FLORA Screen FLORA Titer FLORA Titer 2 FLORA Titer 3 FLORA Pattern FLORA Pattern 2 FLORA Pattern 3 Preliminary micro results at discharge 01/14/21 22:44 Blood Culture - Preliminary Blood - Venous No growth after 48 hours. 01/14/21 22:51 Blood Culture - Preliminary Blood - Venous No growth after 48 hours. Discharge Plan Discharge Patient Disposition: Home, Self-Care Referrals: Physician,Unknown [Primary Care Provider] - Discharge Medications: New clindamycin HCl 300 mg capsule 300 mg PO TID Qty: 21 RF: 0 Continued (DME) pen needle, diabetic [BD Edilia 2nd Gen Pen Needle] 32 gauge x 5/32 needle See Rx Instructions .MEDSUPPLY Qty: 400 RF: 4 meloxicam 7.5 mg tablet 7.5 mg PO DAILY 30 Days Qty: 30 RF: 3 (DME) FreeStyle Lite Strips Strip See Rx Instructions .MEDSUPPLY Qty: 100 RF: 6 insulin aspart U-100 [Novolog Flexpen U-100 Insulin] 100 unit/mL (3 mL) insulin pen 30 unit subcut TID RF: 0 diclofenac sodium 1 % gel 2 g topical BID RF: 0 Tresiba FlexTouch U-200 200 unit/mL (3 mL) insulin pen 140 unit subcut DAILY RF: 0 nortriptyline 75 mg capsule 1 cap PO BEDTIME RF: 0 zolpidem [Ambien] 5 mg Tablet 5 mg PO BEDTIME RF: 0 atorvastatin 20 mg tablet 1 tab PO DAILY RF: 0 aspirin 81 mg tablet,delayed release (DR/EC) 1 tab PO DAILY RF: 0 acetaminophen 500 mg tablet 1 - 2 tab PO Q8H PRN (Reason: pain) RF: 0 ketorolac 0.5 % drops 1 drp ophthalmic (eye) TID PRN (Reason: Pain) RF: 0 fluphenazine decanoate 25 mg/mL solution 50 mg IM Q3W RF: 0 meclizine 25 mg Tablet 25 mg PO TID PRN (Reason: Dizziness) RF: 0 lisinopril 10 mg tablet 1 tab PO DAILY RF: 0 benztropine 1 mg tablet 1 tab PO BID RF: 0 omeprazole 20 mg capsule,delayed release(DR/EC) 1 cap PO DAILY RF: 0 letrozole [Femara] 2.5 mg tablet 1 tab PO DAILY RF: 0 Ozempic 1 mg/dose (2 mg/1.5 mL) pen injector 1 mg subcut QWEEK RF: 0 Discharge Orders: Discharge Order (Routine); Ordered 01/18/21 Ordered By: Jeffry Funk Activity on Discharge: As tolerated Stand Alone Forms: Patient Portal Discharge page Care Plan Goals: recovery Health Concerns: cellulitis Plan of Treatment: clinda
--- NOTE | 2021-01-18 10:44 | MHC.CM.PN ---
PT DISCHARGING HOME W/RESUMPTION OF [facility] AND CREDIT RISK MANAGEMENT DIRECTOR SERVICES, SON ALEXANDER TO TRANSPORT, [facility] UPDATED [facility]IA [facility].
--- NOTE | 2021-01-18 11:07 | MHC.CM.PN ---
CM CALLED PT'S PRIMARY NURSE OMID AT 10:45AM TO LET HER KNOW PT IS DISCHARGING TODAY, [facility] HAD NOT RESPONDED FOR RESUMPTION OF CARE REFERRAL [facility]IA [facility], PRIMARY NURSE GAVE CM CONTACT NUMBER AND MESSAGE WAS LEFT W/ SERVICE AT 11AM ([phone]), CM RECEIVED CALL BACK AT 11:05AM FROM LORI SANDOVAL CLINICAL INK JET OPERATOR WHO REPORTS THEY ARE UNSURE IF THEY WILL BE ABLE TO COME TO HOME TONIGHT AND WAS REQUESTING [facility] SEND HER HOME WITH EVENING MEDS, CM SPOKE TO SON WHO WAS IN ROOM WITH PT AND PER PT MED BOX IS UNLOCKED AND HE WILL BE STAYING WITH PT FOR APPROXIMATELY ONE WEEK, SON REPORTS HE IS COMFORTABLE W/ASSISTING PT WITH EVENING MEDS LONG SOMEONE GOES OVER THE MEDS WITH HIM, CM SPOKE TO PT'S NURSE WHO REPORTS SHE WILL REVIEW MEDS AND NEXT DOSES WITH PT'S SON, ELLIE SPOKE W/ CLINICAL INK JET OPERATOR AT [facility] TO UPDATE HER ON PLAN.
[2021-01-20 13:32] LABS: Mitochondrial Antibodies NEGATIVE (NEGATIVE)
[2021-01-22 00:36] LABS: Smooth Muscle Antibody <20 U (<20)
[2021-01-23 02:07] LABS: FIB-ALT 66 U/L (6-29); FIB-Alpha-2-Macroglobulin 237 mg/dL (106-279); FIB-Apolipoprotein A1 134 mg/dL (101-198); FIB-GGT 185 U/L (3-65); FIB-Haptoglobin 209 mg/dL (43-212); FIB-Total Bilirubin 0.7 mg/dL (0.2-1.2); Liver Fibrosis Score 0.54; Liver Fibrosis Stage F2; Nec Inflam Act Grade A1-A2; Nec Inflam Act Score 0.48
== END 2021-01-18 11:50 | disposition home or self-care (01) | DRG 872 ==
LOC: HO.ED 21:23 → HO.EDOVER 01-15 02:07 → HO.S3 01-15 05:01
PROVIDERS: Internal Medicine Gastroenterology; Admitting Provider Hospitalist; Emergency Provider Emergency Medicine Emergency Medical Services; Visit Provider Internal Medicine
DX: A41.9 Sepsis, unspecified organism (principal); R65.20 Severe sepsis without septic shock; C50.919 Malignant neoplasm of unspecified site of unspecified female breast; E78.5 Hyperlipidemia, unspecified; E04.2 Nontoxic multinodular goiter; F41.9 Anxiety disorder, unspecified; N61.0 Mastitis without abscess; K75.81 Nonalcoholic steatohepatitis (NASH); A08.4 Viral intestinal infection, unspecified; E11.9 Type 2 diabetes mellitus without complications; K74.60 Unspecified cirrhosis of liver; F32.9 Major depressive disorder, single episode, unspecified; Z20.822 Contact with and (suspected) exposure to COVID-19; Z79.1 Long term (current) use of non-steroidal anti-inflammatories (NSAID); Z79.4 Long term (current) use of insulin; Z79.82 Long term (current) use of aspirin; Z79.899 Other long term (current) drug therapy
CPT/HCPCS: 0241U; 36415; 71045; 74177; 80048; 80076; 81001; 81003; 81596; 82728; 82947; 83540; 83605; 83690; 83735; 85025; 86038; 86039; 86255; 86256; 86704; 86706; 86709; 86803; 87040; 87086; 87340; 93005; 96365; 96375; 99285; 99291; J0696; J2405; J2543; Q9967

== ENCOUNTER 2021-01-20 12:43 | Outpatient (REF) | payer MEDICARE, MEDICAID, SELFPAY ==
--- NOTE | 2021-01-15 09:50 | P.CNHO_ITS ---
Subjective - Subjective Chief complaint: Consult for: Breast cancer. Hypercalcemia. Patient: new to practice Consult date: 01/15/21 Requesting Physician: Shelby Primary Care Provider: Unknown Physician Medical Summary: DIAGNOSIS: 1. BREAST CANCER. 2. HYPERCALCEMIA. HPI - Consult Narrative Reason for consult: Consult for: Breast cancer. Narrative: Priscila Ghosh is a pleasant 65 year old lady a history of breast cancer presented to the hospital with a chief complaint of nausea vomiting and abdominal pain. Patient reported that she had fever of 102 F at home. Denies any numbness tingling. Denies any blood in the vomitus or stool stool. Patient noted to have diffuse abdominal tenderness, noted mildly elevated LFTs, CT abdomen showed no acute findings; patient failed oral steroids. Patient was given Zosyn empirically. Blood cultures were sent. Review of other systems is negative except mentioned above. Past medical history of: Hypertension, Hyperlipidemia, Diabetes, Anxiety, Depression, Bipolar disorder, Obesity, History of liver cirrhosis, Menstrual History Menarche age 11 3 para 3. She did breast feed 1 child. Age at 1st 22. Review of Systems - Constitutional Reports system reviewed and no additional complaints, except as documented, Reports weakness - Eyes Reports system reviewed and no additional complaints, except as documented - ENT Reports system reviewed and no additional complaints, except as documented - Cardiovascular Reports system reviewed and no additional complaints, except as documented - Respiratory Reports no additional respiratory complaints - Gastrointestinal Reports system reviewed and no additional complaints, except as documented - Genitourinary Reports no additional female genitourinary complaints - Musculoskeletal Reports system reviewed and no additional complaints, except as documented - Integumentary/Breasts Skin/Breast: Reports no additional skin complaints - Neurologic Reports system reviewed and no additional complaints, except as documented - Psychiatric Reports system reviewed and no additional complaints, except as documented - Endocrine Reports no additional endocrine complaints - Hematologic/Lymphatic Reports system reviewed and no additional complaints, except as documented - Allergic/Immunologic Reports system reviewed and no additional complaints, except as documented Oncology Screenings - ECOG Performance Status ECOG Performance Status: 0 PMFSH Medical History: Medical History (Last Updated 01/15/21 @ 21:39 by Nanette Thompson MD) Bipolar disorder Diabetes mellitus Diabetes type 2, uncontrolled Diabetic nephropathy associated with type 2 diabetes mellitus Dyslipidemia Fever of unknown origin Hirsutism HTN (hypertension) Hypercalcemia Hyperlipidemia Hypertension 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 cirrhosis 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 Multinodular goiter (nontoxic) Obesity Urinary incontinence Functional capacity: independent ambulation Patient : No Family History: Family History (Last Reviewed 01/15/21 @ 21:37 by Nanette Thompson MD) Father History of lung cancer Surgical History: Surgical History (Last Reviewed 01/15/21 @ 21:37 by Nanette Thompson MD) History of appendectomy History of tonsillectomy History of tubal ligation Status post laser cataract surgery of both eyes Status post left breast lumpectomy Social History: Social History (Last Reviewed 01/15/21 @ 21:37 by Nanette Thompson MD) Living Situation History: Household Members: None Housing: Apartment Do you presently have visiting nurse or other home services: Yes Do you presently have visiting nurse or other home services comment: Epic Alcohol History: Alcohol intake: current Alcohol History Details: Alcohol intake frequency: holiday/special occasion Tobacco History: Smoking Status: Former smoker Tobacco Type: Cigarette Second Hand Smoke Exposure: No Substance Use History: Use of substances other than those prescribed or required for medical reasons : No Advance Directives: Advance Directives: No Advance Directives Information Provided: No Occupation Assessmet: service: No Current occupational status: unemployed Home Medications and Allergies Home Medications Medication Instructions Recorded Confirmed Type Ozempic 1 mg SUBCUT QWEEK 08/06/20 01/14/21 History acetaminophen 1 - 2 tab PO Q8H PRN 08/06/20 01/14/21 History aspirin 1 tab PO DAILY 08/06/20 01/14/21 History atorvastatin 1 tab PO DAILY 08/06/20 01/14/21 History benztropine 1 tab PO BID 08/06/20 01/14/21 History fluphenazine decanoate 50 mg IM Q3W 08/06/20 01/14/21 History ketorolac 1 drp OPHTHALMIC (EYE) TID PRN 08/06/20 01/14/21 History letrozole [Femara] 1 tab PO DAILY 08/06/20 01/14/21 History lisinopril 1 tab PO DAILY 08/06/20 01/14/21 History meclizine 25 mg PO TID PRN 08/06/20 01/14/21 History nortriptyline 1 cap PO BEDTIME 08/06/20 01/14/21 History omeprazole 1 cap PO DAILY 08/06/20 01/14/21 History zolpidem [Ambien] 5 mg PO BEDTIME 08/06/20 01/14/21 History Tresiba FlexTouch U-200 140 unit SUBCUT DAILY 01/14/21 02/03/21 History insulin aspart U-100 [Novolog 30 unit SUBCUT TID 01/14/21 02/03/21 History Flexpen U-100 Insulin] Allergies Allergy/AdvReac Type Severity Reaction Status Date / Time metformin [METFORMIN] Allergy Intermediate ELEVATED Verified 01/14/21 23:16 LIVER ENZYMES, liver damage Physical Exam - Constitutional Present: mild distress - Routine HEENT Exam Head: Present: normal inspection ENT: Present: mucous membranes moist - Routine Neck Exam Present: supple - Routine Respiratory Exam Present: CTAB - Routine Cardiovascular Exam Cardiovascular: Present: RRR, S1, S2 - Routine Abdominal Exam Present: tenderness - Routine Skin Exam Present: intact - Routine Neurological Exam Present: alert - Detailed Neurological Exam: Coma Scale Verbal Response: Oriented (5) Motor Response: Obeys commands (6) - Routine Psychiatric Exam Present: good judgment Assessment and Plan (1) Breast cancer, left breast Problem details: She continues to do well with regard to her history of left breast carcinoma. Status: Chronic DATABASE: CBC: WBC 14.7, HGB 11.1, HCT 34.6, MCV 82.4, PLT 183. CMP: Lytes: WNL, blue 173, BUN 22, FINANCIAL ANALYSIS ADVISOR 0.80. Alb 4.2, Emiliano 8.7. LFTs: 0.8/to 36/75/95. Lactic acid 2.3. This is a pleasant 65-year-old lady with a history of left breast carcinoma, diagnosed January 2019, invasive lobular carcinoma pathological stage pT1c pN1a, stage IIA, ERPR positive HER2-. Routine annual mammography demonstrated focal asymmetric density posterior upper outer quadrant with irregular margins suspicious for mass residing 13 cm from nipple. Additional mammographic views and ultrasound performed 01/23/2019 showed persistent round, spiculated density in the posterior 3rd of the left breast and upper outer quadrant. Ultrasound showed left breast 2 o'clock position 13 cm from nipple a lobulated hypoechoic mass with angular margins measuring 0.7 x1 x 0.9 cm. At the left breast at 02:30 position 13 cm from nipple 0.4 x 1.0 x 0.4 cm mass.. Ultrasound-guided biopsy of 2 areas in the left breast at 02:00 o'clock and 230 revealed benign breast tissue at 02:30 position, at 02:00 o'clock position she had an invasive lobular carcinoma, ER and NH positive, negative for over expression of her 2 Gus. On 02/21/2019 underwent left breast lumpectomy and sentinel node biopsy with re- excision of superior margin. Pathology: Invasive lobular carcinoma, 1.9 cm, MSBR grade 2. Margins negative. Eight lymph nodes examined, 5 sentinel nodes and 2 axillary nodes and 2 intramammary nodes. metastatic carcinoma seen in 1 sentinel lymph out of 4 l ymph nodes. one intramammary lymph node positive for micrometastasis. Pathological stage pT1c N1a. Oncotype DX recurrence score was 12; low risk. Her risk of distant recurrence up to 10 years is 13%. Absolute chemotherapy benefit : none. Her bone density performed February 2019 was normal. Started Letrozole 2.5 mg daily from 04/09/2019. Completed adjuvant radiation therapy on 06/08/2019. Left breast lymphedema secondary to surgery and radiation therapy. This resolved after PT/OT. PLAN: She will be due for her next bilateral mammography later in the month. Hypercalcemia: Calcium is 8.7 now, yesterday was 9.9. In July of last year it was 10. Now resolved. Abnormal LFTs, elevated GGT: These are not new findings. Previously CT abdomen/pelvis showed changes suggestive of liver cirrhosis. Liver ultrasound in January 2020 showed borderline enlarged liver measuring 19 cm with subtle nodularity of the anterior contour. No hepatic parenchyma lesion or intrahepatic ductal dilatation. Thank you for this consult, CC:
--- NOTE | ~2021-01-20 | MM_ITS ---
EXAMINATION: MM DIAGNOSTIC DIGITAL BREAST TOMOSYNTHESIS, BILATERAL CLINICAL INFORMATION: Invasive lobular cancer status post left lumpectomy for 02/21/2019. Due for yearly. COMPARISON: Mammography: 01/15/2020, 02/21/2019, 01/11/2019, 12/30/2017 TECHNIQUE: Digital breast tomosynthesis is performed in both the craniocaudal and mediolateral oblique views along with computer-aided detection (CAD). Synthesized 2D images are generated from the tomosynthesis. Additional magnification left CC and magnification left ML views are obtained. FINDINGS: There are scattered areas of fibroglandular density (ACR BI-RADS breast composition Category b). Parenchymal pattern is similar to prior exams. There are post therapy changes on the left with old biopsy clip markers, mild decreased breast size, and minor scarring. Skin thickening is decreased since prior imaging. The right breast shows no interval mass or architectural abnormality or developing density. There are scattered bilateral benign round and coarse calcifications again seen. Axillary nodes are stable. No significant changes. Results are provided to the patient at time of visit by the technologist. MM/MM tomosynthesis diagnostic BI IMPRESSION: No significant changes from prior exam. Post therapy changes left breast. ASSESSMENT: BI-RADS 2: Benign RECOMMENDATION: Annual bilateral mammography. This patient's information was entered into a reminder system with a target due date for their next mammogram.
== END 2021-01-20 12:44 | disposition home or self-care (01) ==
LOC: HO.MAMMO 12:43
PROVIDERS: Visit Provider Surgery
DX: Z85.3 Personal history of malignant neoplasm of breast (principal)
CPT/HCPCS: 77062; 77066

== ENCOUNTER → 2021-02-03 14:00 | Outpatient (BNV) | payer MEDICAID, MEDICARE, SELFPAY | PROVIDERS: PCP Internal Medicine Geriatric Medicine; Visit Provider Internal Medicine | DX: C50.412 Malignant neoplasm of upper-outer quadrant of left female breast (principal); Z79.811 Long term (current) use of aromatase inhibitors; Z92.3 Personal history of irradiation; K76.0 Fatty (change of) liver, not elsewhere classified | CPT/HCPCS: 99214; G2211 ==

== ENCOUNTER 2021-02-08 21:46 | Emergency (ER) | payer MEDICARE, MEDICAID, SELFPAY ==
--- NOTE | ~2021-02-08 | XR_ITS ---
EXAMINATION: XR CHEST CLINICAL INFORMATION: URI symptoms. COMPARISON: 01/14/2021 TECHNIQUE: Frontal view of the chest was obtained. FINDINGS: Normal cardiac and mediastinal silhouette. There is hazy opacity in the medial aspect of the right lower lung, which may be related to overlapping densities, or could represent a subtle infiltrate. No dense consolidation, otherwise. No effusion, edema or pneumothorax. XR/XR chest 1V IMPRESSION: Hazy opacity in the medial right lung base, could be related to overlapping densities versus subtle infiltrate.
[2021-02-08 22:18] VITALS: BP 107/67; PULSE 86; RESP 16; TEMP 36.8; O2SAT 96; BMI 34.4
--- NOTE | 2021-02-08 22:46 | ED.URI ---
HPI - URI/Sore Throat General Chief Complaint: Fever Stated Complaint: Fever Source: patient Mode of arrival: ambulatory Limitations: language barrier History of Present Illness HPI Narrative: 65-year-old female presents with 1 day of intermittent fevers and chills that have resolved after using Motrin. Reports that she had a COVID vaccine a few weeks ago. Is asking for a COVID test at this time. She does not describe any other symptoms, and states that she is no longer symptomatic. MD elicited complaint: fever Onset (ago): day(s) (Intermittent 1 day) Consistency: intermittent Severity: mild Able to tolerate fluids by mouth: Yes Relieving factors: other (Motrin) Associated symptoms: denies other symptoms Treatments prior to arrival: ibuprofen Related Data Home Medications Medication Instructions Recorded Confirmed Ozempic 1 mg SUBCUT QWEEK 08/06/20 01/14/21 acetaminophen 1 - 2 tab PO Q8H PRN 08/06/20 01/14/21 aspirin 1 tab PO DAILY 08/06/20 01/14/21 atorvastatin 1 tab PO DAILY 08/06/20 01/14/21 benztropine 1 tab PO BID 08/06/20 01/14/21 fluphenazine decanoate 50 mg IM Q3W 08/06/20 01/14/21 ketorolac 1 drp OPHTHALMIC (EYE) TID PRN 08/06/20 01/14/21 letrozole [Femara] 1 tab PO DAILY 08/06/20 01/14/21 lisinopril 1 tab PO DAILY 08/06/20 01/14/21 meclizine 25 mg PO TID PRN 08/06/20 01/14/21 nortriptyline 1 cap PO BEDTIME 08/06/20 01/14/21 omeprazole 1 cap PO DAILY 08/06/20 01/14/21 zolpidem [Ambien] 5 mg PO BEDTIME 08/06/20 01/14/21 Tresiba FlexTouch U-200 140 unit SUBCUT DAILY 01/14/21 02/03/21 insulin aspart U-100 [Novolog 30 unit SUBCUT TID 01/14/21 02/03/21 Flexpen U-100 Insulin] Previous Rx's Medication Instructions Recorded pen needle, diabetic 32 gauge x #400 ea 08/12/20 meloxicam 7.5 mg tablet 7.5 mg PO DAILY 30 Days #30 tab 10/13/20 blood sugar diagnostic #100 ea 01/01/21 Allergies Allergy/AdvReac Type Severity Reaction Status Date / Time metformin [METFORMIN] Allergy Intermediate ELEVATED Verified 01/14/21 23:16 LIVER ENZYMES, liver damage Review of Systems Review of Systems: Constitutional: positive subjective Fever, positive Chills, no fatigue, no Malaise ENT/Mouth: No sore throat, no runny nose Eyes: No Discharge Cardiovascular: No Chest Pain, No SOB Respiratory: No Cough, No Sputum, No Wheezing, No Smoke Exposure, No Dyspnea Gastrointestinal: No Nausea, No Vomiting, No Diarrhea Genitourinary: no irregular bleeding, No Dysuria, No Urinary Frequency, No Hematuria, No Urinary Incontinence, No Urgency, No Flank Pain, Musculoskeletal: No Myalgia Skin: No rash Neuro: No Headache Yes all other systems are reviewed and are negative [facility] Past Medical History Attestation statement: The following information was validated with the patient. 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 Multinodular goiter (nontoxic) Obesity Urinary incontinence Surgical History History of appendectomy History of tonsillectomy History of tubal ligation Status post laser cataract surgery of both eyes Status post left breast lumpectomy Family History Family History Father History of lung cancer Social History Social History Household Members: None Housing: Apartment Alcohol intake: current Alcohol intake frequency: holidays/special occasions only Smoking Status: Never smoker Tobacco Type: Cigarette Second Hand Smoke Exposure: No Advance Directives: No Advance Directives Information Provided: No service: No Current occupational status: unemployed Physical Exam Vital Signs: Vital Signs: Last Vital Signs Temp 98.3 F 02/08/21 22:18 Pulse 86 02/08/21 22:18 Resp 16 02/08/21 22:18 BP 107/67 02/08/21 22:18 Pulse Ox 96 02/08/21 22:18 Body Mass Index 34.4 Appearance: Alert. Oriented X3. No acute distress. Head: Normal external exam. Normocephalic. Atraumatic. No Guevara signs noted. No raccoon eyes noted Eyes: PERRLA. EOMI. Conjunctiva and sclera normal. Eyelids normal. ENT: TM's Normal. Pharynx normal. Uvula midline. Moist mucous membranes. No trismus noted. No drooling noted. No muffled voice noted. Neck: Normal inspection. Neck supple. No adenopathy. Thyroid Normal. No meningeal signs. No neck mass noted. CVS: Normal heart rate and rhythm. Heart sound normal. No murmurs noted. Pulses equal to all extremities. Respiratory: No respiratory distress. Painless inspiration. Breath sounds normal. No wheezes/rales/rhonchi noted. Chest nontender. No accessory muscle usage noted or decreased air movement noted. Abdomen: Soft and nontender. Bowel sounds normal in all 4 quadrants. No distention noted. No organomegaly noted. No visible injury noted. Back: No CVA tenderness. Full range of motion noted. Skin: Skin warm and dry. Normal skin color. Normal skin turgor. No rashes/lesions/lacerations noted. Extremities: No lower extremity edema. Extremities exhibit normal range of motion. Extremities nontender. Neuro: cranial nerves 2-12 intact, no focal neural deficits, strength 5/5 to all extremities, No motor deficit. No sensory deficit. Reflexes normal. Course Course Course Narrative: 65-year-old female presents with subjective fever after receiving a COVID-19 vaccine. Patient is requesting COVID testing. She does not describe symptoms, and states that her subjective fever resolved after taking ibuprofen. Patient states that she would like a COVID test, was offered option to leave and we would call her with her results, or if she wanted to stay she would be more than welcome. Patient requested to be discharged home prior to test results. Patient called at 12:27 a.m. COVID test is negative. MDM - URI/Sore Throat Differential Diagnosis Differential diagnosis: Likely upper respiratory infection, viral infection, bronchitis, influenza and pharyngitis Medical Records Attestation: I reviewed the patient's medical records. Lab Data Attestation: I reviewed the patient's lab results. Imaging Data Chest x-ray: Attestation: I personally reviewed and interpreted this imaging study as follows: Radiologist's impression: EXAMINATION: XR CHEST CLINICAL INFORMATION: URI symptoms. COMPARISON: 01/14/2021 TECHNIQUE: Frontal view of the chest was obtained. FINDINGS: Normal cardiac and mediastinal silhouette. There is hazy opacity in the medial aspect of the right lower lung, which may be related to overlapping densities, or could represent a subtle infiltrate. No dense consolidation, otherwise. No effusion, edema or pneumothorax. XR/XR chest 1V IMPRESSION: Hazy opacity in the medial right lung base, could be related to overlapping densities versus subtle infiltrate. Discharge Plan Discharge Clinical Impression: COVID-19 URI (upper respiratory infection) Qualifiers: URI type: unspecified URI Qualified Code(s): J06.9 - Acute upper respiratory infection, unspecified Patient Disposition: Home, Self-Care Instructions: COVID-19 (Coronavirus Disease 2019) (ED) Additional Instructions: Se le evaluaron para detectar s?ntomas consistentes con la exposici?n positiva a COVID-19 o COVID-19. Por favor, mantenga el aislamiento social seg?n las directrices estatales y federales. Es alva responsabilidad mantener estas directrices. Los resultados de las pruebas est?n pendientes. Le llamaremos con los resultados. Usted debe tratarse a s? mismo asha si fuera positivo hasta que los resultados de la prueba vuelvan. Madelaine por elegir aleena departamento de emergencias para alva evaluaci?n. Por favor, andre un seguimiento con el m?dico de atenci?n primaria seg?n sea necesario. Regrese al servicio de emergencias para cualquier s?ntoma nuevo, preocupante o que empeore. You were evaluated for symptoms consistent with COVID-19 and or COVID-19 positive exposure. Please maintain social isolation per State and Federal guidelines. Is your responsibility to maintain these guidelines. Your test results are pending. We will call you with the results. You must treat yourself as if you are positive until your test results come back. Thank you for choosing this emergency department for evaluation. Please follow-up with primary care physician as needed. Return to the emergency department for any new, concerning, or worsening symptoms. Prescriptions: No Action (DME) pen needle, diabetic [BD Edilia 2nd Gen Pen Needle] 32 gauge x 5/32 needle See Rx Instructions .MEDSUPPLY Qty: 400 RF: 4 meloxicam 7.5 mg tablet 7.5 mg PO DAILY 30 Days Qty: 30 RF: 3 (DME) FreeStyle Lite Strips Strip See Rx Instructions .MEDSUPPLY Qty: 100 RF: 6 insulin aspart U-100 [Novolog Flexpen U-100 Insulin] 100 unit/mL (3 mL) insulin pen 30 unit subcut TID RF: 0 Tresiba FlexTouch U-200 200 unit/mL (3 mL) insulin pen 140 unit subcut DAILY RF: 0 nortriptyline 75 mg capsule 1 cap PO BEDTIME RF: 0 zolpidem [Ambien] 5 mg Tablet 5 mg PO BEDTIME RF: 0 atorvastatin 20 mg tablet 1 tab PO DAILY RF: 0 aspirin 81 mg tablet,delayed release (DR/EC) 1 tab PO DAILY RF: 0 acetaminophen 500 mg tablet 1 - 2 tab PO Q8H PRN (Reason: pain) RF: 0 ketorolac 0.5 % drops 1 drp ophthalmic (eye) TID PRN (Reason: Pain) RF: 0 fluphenazine decanoate 25 mg/mL solution 50 mg IM Q3W RF: 0 meclizine 25 mg Tablet 25 mg PO TID PRN (Reason: Dizziness) RF: 0 lisinopril 10 mg tablet 1 tab PO DAILY RF: 0 benztropine 1 mg tablet 1 tab PO BID RF: 0 omeprazole 20 mg capsule,delayed release(DR/EC) 1 cap PO DAILY RF: 0 letrozole [Femara] 2.5 mg tablet 1 tab PO DAILY RF: 0 Ozempic 1 mg/dose (2 mg/1.5 mL) pen injector 1 mg subcut QWEEK RF: 0 Interventions: ED Discharge Assessment Last Done: 02/09/21 00:03 Discharge Date/Time: 02/09/21 00:04
--- NOTE | 2021-02-08 23:41 | PC.NURSE ---
COVID/Flu/RSV swab obtained and sent to lab for analysis. Plan to discharge home and call with results, per PAULINE Zhang.
[2021-02-09 00:20] LABS: Influenza A PCR NEGATIVE (Negative); Influenza B PCR NEGATIVE (Negative); Resp Syncy Virus RNA Qual PCR NEGATIVE (Negative); SARS COV2 PCR INHOUSE NEGATIVE (Negative)
== END 2021-02-09 00:04 | disposition home or self-care (01) ==
PROVIDERS: Nurse Practitioner Family; Emergency Provider Emergency Medicine; PCP Internal Medicine Geriatric Medicine
DX: J06.9 Acute upper respiratory infection, unspecified (principal); Z20.822 Contact with and (suspected) exposure to COVID-19; R50.9 Fever, unspecified; E11.9 Type 2 diabetes mellitus without complications; E78.5 Hyperlipidemia, unspecified; F31.9 Bipolar disorder, unspecified; F17.210 Nicotine dependence, cigarettes, uncomplicated; Z79.82 Long term (current) use of aspirin; Z79.02 Long term (current) use of antithrombotics/antiplatelets; Z79.4 Long term (current) use of insulin; Z79.899 Other long term (current) drug therapy
CPT/HCPCS: 0241U; 36415; 71045; 99283

== ENCOUNTER 2021-03-02 12:13 | Inpatient (IN) | payer MEDICARE, MEDICAID, SELFPAY ==
--- NOTE | ~2021-03-02 | CT_ITS ---
EXAMINATION: CT ABDOMEN AND PELVIS WITH CONTRAST CLINICAL INFORMATION: Lower abdominal tenderness, nausea, vomiting and diarrhea COMPARISON: Previous CT of the abdomen and pelvis most recent December 2020 TECHNIQUE: Multidetector volumetric images were obtained from the superior aspect of the liver through the pubic symphysis following administration 85 mL of Omnipaque 350 intravenous contrast. Sagittal and coronal reformatted images were obtained on the technologist's workstation. Oral contrast: Yes This CT examination was performed using dose optimization techniques as appropriate, variously including the following: *Automated exposure control *Adjustment of mA and/or kV according to patient size (this includes techniques or standardized protocols for targeted exams where dose is matched to indication/reason for exam; i.e. extremities or head) *Use of iterative reconstruction technique DLP: 771 mGy-cm FINDINGS: LUNG BASES: The visualized lung bases are clear. There is skin thickening of the left breast. There is increased density of the retroareolar inferior left breast tissue compared to the right. This is difficult to compare with previous exams as left breast is not as well included in the [id number]. LIVER, GALLBLADDER, AND BILIARY TREE: The liver has a lobular contour suggestive of cirrhosis. No focal liver lesion is seen. The gallbladder has been removed. There is no biliary duct dilatation. PANCREAS: Unremarkable. SPLEEN: Unremarkable. ADRENAL GLANDS: There is a small 1 cm left adrenal nodule that is stable. The right adrenal gland is normal. KIDNEYS AND URETERS: There is a tiny 1 mm nonobstructing stone in the upper pole of the left kidney. The kidneys are otherwise unremarkable. BLADDER: Unremarkable. GASTROINTESTINAL TRACT: There is diverticulosis of the distal colon. There is wall thickening of the transverse, left and ethmoid colon. Long segment distribution is more suggestive of colitis than diverticulitis. The more proximal cecum and right colon appears slightly distended and filled with stool and fluid questionable for mild partial obstruction. Small bowel is unremarkable.. No evidence of perforation or abscess is seen. The appendix is not identified. The stomach is not optimally distended. ABDOMINAL WALL: There is diastasis of the rectus muscles. No hernia is seen. LYMPH NODES: There are small lymph nodes in the small bowel mesentery and retroperitoneum. No enlarged lymph nodes are seen. VASCULAR: There are varices. The hepatic veins and portal veins are patent. PELVIC VISCERA: There are multiple small uterine calcifications probably related to fibroids. The adnexa appear unremarkable. OSSEOUS STRUCTURES: There are mild degenerative changes of the spine. CT/CT abdomen pelvis w con IMPRESSION: Diverticulosis of the colon. Diffuse wall thickening of the transverse left and sigmoid colon. Long segment distribution favors colitis over diverticulitis. Slightly dilated stool-filled fluid-filled right colon questionable for mild partial obstruction. Cirrhotic-appearing liver. Abnormal appearance to the left breast with diffuse skin thickening and asymmetric density. This is not included in the [id number]-[id number] on prior exams and is difficult to compare. Small nonobstructing left renal stone. Small uterine calcifications probably representing fibroids.
[2021-03-02 12:21] VITALS: BP 132/65; PULSE 103; RESP 20; TEMP 36.8; O2SAT 98; BMI 33.3
[2021-03-02 14:54] LABS: MANUAL DIFF FLAG NO
[2021-03-02 14:57] LABS: Basophils Percent Auto 0.3 % (0-2); Eosinophils Absolute Auto 0.1 X10*3/uL (0.0-0.4); Eosinophils Percent Auto 0.5 % (0-4); Hematocrit 40.6 % (37-47); Hemoglobin 12.9 g/dl (12.0-16.0); Imm Gran Abs Auto 0.04 X10*3/uL (0.00-0.03); Imm Gran Pct Auto 0.3 % (0.0-0.4); Lymphocytes Absolute Auto 1.4 X10*3/uL (1.2-4.9); Lymphocytes Percent Auto 11.2 % (20-40); Mean Corpuscular HGB Conc 31.8 g/dl (31.0-35.0); Mean Corpuscular Hemoglobin 26.1 pg (27.0-33.0); Mean Platelet Volume 9.7 fL (9.4-12.3); Monocytes Percent Auto 8.1 % (2-11); Neutrophils Absolute Auto 9.8 X10*3/uL (2.0-8.3); Neutrophils Percent Auto 79.6 % (45-73); Platelet Count 277 X10*3/uL (160-400); Red Blood Count 4.95 X10*6/uL (4.20-5.50); Red Cell Distribution Width 14.8 % (11.0-16.0); White Blood Count 12.3 X10*3/uL (4.8-10.8)
[2021-03-02] MEDS: Famotidine/PF 20 MG/2 ML VIAL IVPUSH (14:57)
[2021-03-02] MEDS: Lidocaine HCl Viscous 2 % 15 ML SOLUTION MUCOUS MEM (14:57)
[2021-03-02] MEDS: ondansetron HCL 4 MG/2 ML VIAL IVPUSH (14:58)
[2021-03-02] MEDS: 0.9 % Sodium Chloride 1,000 ML 999 ML IVCONT ×2 (14:59→18:30)
[2021-03-02 15:29] LABS: Alanine Aminotransferase 50 U/L (0-31); Albumin Level 4.3 g/dL (3.5-5.0); Alkaline Phosphatase 171 U/L (39-117); Anion Gap 15 (12-20); Aspartate Amino Transferase 40 U/L (5-31); Bilirubin Direct 0.4 mg/dL (0.0-0.5); Bilirubin Total 1.1 mg/dL (0.0-1.0); Blood Urea Nitrogen 11 mg/dL (9-16); Calcium 10.2 mg/dL (8.4-10.2); Carbon Dioxide 25 mmol/L (22-29); Chloride 102 mmol/L (96-108); Creatinine Clr Calc Pharmacy 78.7; Estimated Glomerular Filt Rate > 60; Glucose Random 81 mg/dL (60-115); Lipase 10 U/L (8-78); Magnesium 1.8 mg/dL (1.6-2.6); Potassium 4.5 mmol/L (3.3-5.1); Sodium 137 mmol/L (135-145); Total Protein 7.8 g/dL (6.5-8.0)
[2021-03-02 15:39] VITALS: BP 101/44; PULSE 104; RESP 16; TEMP 37.1; O2SAT 95
--- NOTE | 2021-03-02 16:01 | ED_ITS ---
HPI - Nausea/Vomiting/Diarrhea General Chief complaint: Nausea/Vomiting/Diarrhea Stated complaint: ABD PAIN VOMITING Time Seen by Provider: 03/02/21 14:09 Source: patient History of Present Illness HPI Narrative: 65-year-old female with a past medical history of bipolar, diabetes, hyperlipidemia, HTN, hypercalcemia, liver cirrhosis, obesity, urinary incontinence, presenting to the ED complaining of lower abdominal pain, nausea, vomiting, and diarrhea since yesterday. Admits to similar symptoms a few weeks ago, saw PCP was on antibiotics with symptomatic improvement, however symptoms recurred yesterday. Denies fever, chills, bloody BMs, dysuria/hematuria. MD elicited complaint: nausea, vomiting and diarrhea Related Data Home Medications Medication Instructions Recorded Confirmed acetaminophen 1 - 2 tab PO Q8H PRN 08/06/20 01/14/21 aspirin 1 tab PO DAILY 08/06/20 01/14/21 atorvastatin 1 tab PO DAILY 08/06/20 01/14/21 benztropine 1 tab PO BID 08/06/20 01/14/21 fluphenazine decanoate 50 mg IM Q3W 08/06/20 01/14/21 ketorolac 1 drp OPHTHALMIC (EYE) TID PRN 08/06/20 01/14/21 lisinopril 1 tab PO DAILY 08/06/20 01/14/21 meclizine 25 mg PO TID PRN 08/06/20 01/14/21 nortriptyline 1 cap PO BEDTIME 08/06/20 01/14/21 omeprazole 1 cap PO DAILY 08/06/20 01/14/21 zolpidem [Ambien] 5 mg PO BEDTIME 08/06/20 01/14/21 Tresiba FlexTouch U-200 140 unit SUBCUT DAILY 01/14/21 02/03/21 insulin aspart U-100 [Novolog 30 unit SUBCUT TID 01/14/21 02/03/21 Flexpen U-100 Insulin] Previous Rx's Medication Instructions Recorded pen needle, diabetic 32 gauge x #400 ea 08/12/20 meloxicam 7.5 mg tablet 7.5 mg PO DAILY 30 Days #30 tab 10/13/20 blood sugar diagnostic #100 ea 01/01/21 semaglutide 1 mg/dose (2 mg/1.5 1 mg SUBCUT QWEEK 30 Days #3.75 ml 02/10/21 mL) subcutaneous pen injector letrozole [Femara] 2.5 mg PO DAILY #90 tab 03/02/21 Allergies Allergy/AdvReac Type Severity Reaction Status Date / Time metformin [METFORMIN] Allergy Intermediate ELEVATED Verified 01/14/21 23:16 LIVER ENZYMES, liver damage Review of Systems Review of Systems: Constitutional: No Fever, No Chills, No Fatigue, No Malaise Cardiovascular: No Chest Pain, No SOB Respiratory: No Cough, No Dyspnea Gastrointestinal: + Nausea, + Vomiting, + Diarrhea, No Constipation, + Abdominal pain, No Hematochezia, No Melena Genitourinary: No irregular bleeding, No Dysuria, No Urinary Frequency, No Hematuria, No Flank Pain, No Urinary Flow Changes Musculoskeletal: No joint pain, No Myalgias, No Joint Swelling Skin: No Skin Lesions, No rash Neuro: No Weakness, No Numbness, No Headache Yes all other systems are reviewed and are negative [facility] Past Medical History Attestation statement: The following information was validated with the patient. 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 Multinodular goiter (nontoxic) Obesity Urinary incontinence Surgical History History of appendectomy History of tonsillectomy History of tubal ligation Status post laser cataract surgery of both eyes Status post left breast lumpectomy Family History Family History Father History of lung cancer Social History Social History Household Members: None Housing: Apartment Alcohol intake: never Smoking Status: Never smoker Tobacco Type: Cigarette Second Hand Smoke Exposure: No Use of substances other than those prescribed or required for medical reasons: No Advance Directives: No Advance Directives Information Provided: No service: No Current occupational status: unemployed Physical Exam Vital Signs: Vital Signs: Last Vital Signs Temp 99.7 F 03/02/21 17:07 Pulse 102 H 03/02/21 17:07 Resp 18 03/02/21 17:07 BP 91/46 L 03/02/21 17:07 Pulse Ox 95 03/02/21 17:07 Body Mass Index 33.3 Const: General: cooperative and no acute distress Orientation/consci ousness: patient oriented x3 Limitations: no limitations HENMT: Head: Yes normal to inspection Ears: hearing grossly normal bilaterally General nose exam: Normal external nose present Face and sinus: Yes normal facial exam Eyes: General: appearance normal, both eyes and all related structures EOM: EOMs intact bilaterally Neck: Neck: Yes normal visual inspection and Yes no meningeal signs Resp: Effort & Inspection: normal respiratory effort Cardio: Rate: regular rate GI: Inspection: Yes normal to inspection Palpation (GI): Soft to palpation, Tenderness to palpation present (GI) in the LLQ, in the RLQ and in the LUQ, no guarding and not rigid : General: Yes no CVA tenderness Back/Spine/Pelvis: Back: no CVA tenderness Skin: Rashes: no rashes Wounds: no wounds Neuro: General: patient oriented x3 and no meningeal signs Extrem: General: Yes normal to inspection Course Course Course Narrative: -mild leukocytosis of 12.3, AST/ALT chronically elevated (improved from priors), alk-phos chronically elevated -1654--glucose noted to be 61, and amp D50 ordered CT abdomen pelvis w con IMPRESSION: Diverticulosis of the colon. Diffuse wall thickening of the transverse left and sigmoid colon. Long segment distribution favors colitis over diverticulitis. Slightly dilated stool-filled fluid-filled right colon questionable for mild partial obstruction. Cirrhotic-appearing liver. Abnormal appearance to the left breast with diffuse skin thickening and asymmetric density. This is not included in the [id number] on prior exams and is difficult to compare. Small nonobstructing left renal stone. Small uterine calcifications probably representing fibroids > case discussed with surgery Dr. Spicer who evaluated patient in the ED, believes more colitis, recommended admission for IVF/observation. MDM - Nausea/Vomiting/Diarrhea MDM Narrative Medical decision making narrative: 65-year-old female with a past medical history of bipolar, diabetes, hyperlipidemia, HTN, hypercalcemia, liver cirrhosis, obesity, urinary incontinence, presenting to the ED complaining of lower abdominal pain, nausea, vomiting, and diarrhea since yesterday. On exam mildly tachycardic, NAD, abdomen soft diffusely tender, no rebound or guarding, no CVAT. Concern for diverticulitis/colitis vs appendicitis vs UTI vs ?C.diff vs gastroenteritis Low concern for severe sepsis at this time Plan: Labs, UA, CTAP, IVF, symptomatic treatment, reassess Medical Records Attestation: I reviewed the patient's medical records. Lab Data Attestation: I reviewed the patient's lab results. Result diagrams: 03/02/21 14:50 03/02/21 14:50 Labs: Lab Results 03/02/21 03/02/21 03/02/21 Range/Units 14:50 14:50 16:27 WBC 12.3 H (4.8-10.8) X10*3/uL RBC 4.95 (4.20-5.50) X10*6/uL Hgb 12.9 (12.0-16.0) g/dl Hct 40.6 (37-47) % MCV 82.0 (80-98) fL MCH 26.1 L (27.0-33.0) pg MCHC 31.8 (31.0-35.0) g/dl RDW 14.8 (11.0-16.0) % Plt Count 277 D (160-400) X10*3/uL MPV 9.7 (9.4-12.3) fL Immature Gran % (Auto) 0.3 (0.0-0.4) % Neut % (Auto) 79.6 H (45-73) % Lymph % (Auto) 11.2 L (20-40) % [place] % (Auto) 8.1 (2-11) % Eos % (Auto) 0.5 (0-4) % Baso % (Auto) 0.3 (0-2) % Lymph # (Auto) 1.4 (1.2-4.9) X10*3/uL [place] # (Auto) 1.0 (0.1-1.2) X10*3/uL Eos # (Auto) 0.1 (0.0-0.4) X10*3/uL Baso # (Auto) 0.0 (0.0-0.2) X10*3/uL Abs Immat Gran (auto) 0.04 H (0.00-0.03) X10*3/uL Absolute Neuts (auto) 9.8 H (2.0-8.3) X10*3/uL Absolute Nucleated RBC 0.000 (0.0-0.012) X10*3/uL Nucleated RBC % (auto) 0.0 (0.0-0.2) /100WBC Sodium 137 (135-145) mmol/L Potassium 4.5 (3.3-5.1) mmol/L Chloride 102 (96-108) mmol/L Carbon Dioxide 25 (22-29) mmol/L Anion Gap 15 (12-20) BUN 11 (9-16) mg/dL Creatinine 0.70 (0.5-1.4) mg/dL Estim Creat Clear Calc 78.7 Estimated GFR > 60 POC Glucose 63 (60-115) mg/dL Random Glucose 81 D (60-115) mg/dL Calcium 10.2 (8.4-10.2) mg/dL Magnesium 1.8 (1.6-2.6) mg/dL Total Bilirubin 1.1 H (0.0-1.0) mg/dL Direct Bilirubin 0.4 (0.0-0.5) mg/dL AST 40 H D (5-31) U/L ALT 50 H (0-31) U/L Alkaline Phosphatase 171 H D (39-117) U/L Total Protein 7.8 (6.5-8.0) g/dL Albumin 4.3 (3.5-5.0) g/dL Lipase 10 (8-78) U/L 03/02/21 Range/Units 16:49 WBC (4.8-10.8) X10*3/uL RBC (4.20-5.50) X10*6/uL Hgb (12.0-16.0) g/dl Hct (37-47) % MCV (80-98) fL MCH (27.0-33.0) pg MCHC (31.0-35.0) g/dl RDW (11.0-16.0) % Plt Count (160-400) X10*3/uL MPV (9.4-12.3) fL Immature Gran % (Auto) (0.0-0.4) % Neut % (Auto) (45-73) % Lymph % (Auto) (20-40) % [place] % (Auto) (2-11) % Eos % (Auto) (0-4) % Baso % (Auto) (0-2) % Lymph # (Auto) (1.2-4.9) X10*3/uL [place] # (Auto) (0.1-1.2) X10*3/uL Eos # (Auto) (0.0-0.4) X10*3/uL Baso # (Auto) (0.0-0.2) X10*3/uL Abs Immat Gran (auto) (0.00-0.03) X10*3/uL Absolute Neuts (auto) (2.0-8.3) X10*3/uL Absolute Nucleated RBC (0.0-0.012) X10*3/uL Nucleated RBC % (auto) (0.0-0.2) /100WBC Sodium (135-145) mmol/L Potassium (3.3-5.1) mmol/L Chloride (96-108) mmol/L Carbon Dioxide (22-29) mmol/L Anion Gap (12-20) BUN (9-16) mg/dL Creatinine (0.5-1.4) mg/dL Estim Creat Clear Calc Estimated GFR POC Glucose 61 (60-115) mg/dL Random Glucose (60-115) mg/dL Calcium (8.4-10.2) mg/dL Magnesium (1.6-2.6) mg/dL Total Bilirubin (0.0-1.0) mg/dL Direct Bilirubin (0.0-0.5) mg/dL AST (5-31) U/L ALT (0-31) U/L Alkaline Phosphatase (39-117) U/L Total Protein (6.5-8.0) g/dL Albumin (3.5-5.0) g/dL Lipase (8-78) U/L Discharge Plan Discharge Clinical Impression: Colitis Patient Disposition: Admitted As Inpatient Prescriptions: No Action (DME) pen needle, diabetic [BD Edilia 2nd Gen Pen Needle] 32 gauge x 5/32 needle See Rx Instructions .MEDSUPPLY Qty: 400 RF: 4 meloxicam 7.5 mg tablet 7.5 mg PO DAILY 30 Days Qty: 30 RF: 3 (DME) FreeStyle Lite Strips Strip See Rx Instructions .MEDSUPPLY Qty: 100 RF: 6 Ozempic 1 mg/dose (2 mg/1.5 mL) pen injector 1 mg subcut QWEEK 30 Days Qty: 3.75 RF: 6 insulin aspart U-100 [Novolog Flexpen U-100 Insulin] 100 unit/mL (3 mL) insulin pen 30 unit subcut TID RF: 0 Tresiba FlexTouch U-200 200 unit/mL (3 mL) insulin pen 140 unit subcut DAILY RF: 0 nortriptyline 75 mg capsule 1 cap PO BEDTIME RF: 0 zolpidem [Ambien] 5 mg Tablet 5 mg PO BEDTIME RF: 0 atorvastatin 20 mg tablet 1 tab PO DAILY RF: 0 aspirin 81 mg tablet,delayed release (DR/EC) 1 tab PO DAILY RF: 0 acetaminophen 500 mg tablet 1 - 2 tab PO Q8H PRN (Reason: pain) RF: 0 ketorolac 0.5 % drops 1 drp ophthalmic (eye) TID PRN (Reason: Pain) RF: 0 fluphenazine decanoate 25 mg/mL solution 50 mg IM Q3W RF: 0 meclizine 25 mg Tablet 25 mg PO TID PRN (Reason: Dizziness) RF: 0 lisinopril 10 mg tablet 1 tab PO DAILY RF: 0 benztropine 1 mg tablet 1 tab PO BID RF: 0 omeprazole 20 mg capsule,delayed release(DR/EC) 1 cap PO DAILY RF: 0 letrozole [Femara] 2.5 mg tablet 2.5 mg PO DAILY Qty: 90 RF: 3
[2021-03-02] MEDS: iohexoL 350 MG/ML 100 ML INFUS..BTL IV (16:15)
[2021-03-02 16:31] LABS: Glucose, Whole Blood 63 mg/dL (60-115)
[2021-03-02 16:53] LABS: Glucose, Whole Blood 61 mg/dL (60-115)
[2021-03-02 17:07] VITALS: BP 91/46; PULSE 102; RESP 18; TEMP 37.6; O2SAT 95
--- NOTE | 2021-03-02 17:09 | PC.NURSE ---
provider, Alva, aware of BP trending down. pt is axox3. skin pwd. unlabored rest in bed.
--- NOTE | 2021-03-02 17:24 | PM.CNGS ---
History of Present Illness Consult details Consult date: 03/02/21 Narrative: 65F here in the ED because of severe diarrhea. She says she was in her usual state of health yesterday. However, she woke up this morning with what she describes as watery stools. She has had multiple BMs all day, very loose each time. She actually denies any abdominal pain. She denies any fever or chills. She had a CT scan done showing some thickening of multiple segments of the colon suggestive of colitis. I was therefore consulted. She denies blood per rectum. She had been on IV clindamycin in the hospital for cellulitis about 6 weeks ago. Review of Systems Constitutional: Constitutional: Denies chills and Denies fever(s) Cardiovascular: Cardiovascular: Denies chest pain and Denies syncope Respiratory: Respiratory: Denies cough Gastrointestinal: Gastrointestinal: Denies hematochezia and Denies coffee ground emesis Genitourinary: Genitourinary: Denies difficulty voiding Neurologic: Denies behavioral changes, Denies syncope and Denies focal weakness Psychiatric: Psychiatric: Denies behavioral changes PMFSH Past Medical History Medical History Bipolar disorder Colitis Diabetes mellitus Diabetes type 2, uncontrolled Diabetic nephropathy associated with type 2 diabetes mellitus Dyslipidemia Fever of unknown origin Hirsutism HTN (hypertension) Hypercalcemia Hyperlipidemia Hypertension Liver cirrhosis [facility] (current) use of insulin Multinodular goiter (nontoxic) Obesity Urinary incontinence Family History Family History Father History of lung cancer Surgical History Surgical History History of appendectomy History of tonsillectomy History of tubal ligation Status post laser cataract surgery of both eyes Status post left breast lumpectomy Social History Social History Household Members: None Housing: Apartment Alcohol intake: never Smoking Status: Never smoker Tobacco Type: Cigarette Second Hand Smoke Exposure: No Use of substances other than those prescribed or required for medical reasons: No Currently Displaying Signs/Symptoms of Drug Intoxication Withdrawal: No Have you been hit, kicked, punched, or otherwise hurt by someone within the past year? If so, by whom?: No Do you feel safe in your current relationship?: No Current Relationship Is there a partner from a previous relationship who is making you feel unsafe now?: No Are you made to feel afraid or neglected: No Advance Directives: No Advance Directives Information Provided: No Do you have thoughts of harming others: None Do you have a plan to hurt others: No Plan Recently lost weight without trying: No Eating poorly because of decreased appetite: No Nutrition Risks: No Nutritional Risk Patient : No : No Poor oral hygiene: No service: No Current occupational status: unemployed Meds Allergies Allergy/AdvReac Type Severity Reaction Status Date / Time metformin [METFORMIN] Allergy Intermediate ELEVATED Verified 01/14/21 23:16 LIVER ENZYMES, liver damage Active Medications: Current Medications Generic Name Dose Route Start Last Admin Trade Name Freq PRN Reason Stop Dose Admin Sodium Chloride 1,000 mls @ 999 mls/hr 03/02/21 17:30 Ns IVCONT 03/02/21 18:30 .Q1H1M [facility] Pharmacy Consult 1 each 03/02/21 17:22 Consult Rx Perform Med Rec MISCELLANE ONCE PRN Consult order Home Medications Medication Instructions Recorded Confirmed Last Taken Type acetaminophen 1 - 2 tab PO Q8H PRN 08/06/20 03/02/21 01/14/21 History aspirin 1 tab PO DAILY 08/06/20 03/02/21 03/02/21 History atorvastatin 20 mg PO BEDTIME 08/06/20 03/02/21 03/01/21 History benztropine 1 mg PO BID 08/06/20 03/02/21 03/02/21 History fluphenazine decanoate 50 mg IM Q3W 08/06/20 03/02/21 02/10/21 History lisinopril 10 mg PO DAILY 08/06/20 03/02/21 03/02/21 History meclizine 25 mg PO TID PRN 08/06/20 03/02/21 03/02/21 History nortriptyline 75 mg PO BEDTIME 08/06/20 03/02/21 03/01/21 History omeprazole 20 mg PO DAILY 08/06/20 03/02/21 03/02/21 History zolpidem [Ambien] 5 mg PO BEDTIME 08/06/20 03/02/21 01/13/21 History Tresiba FlexTouch U-200 140 unit SUBCUT DAILY 01/14/21 03/02/21 03/02/21 History insulin aspart U-100 [Novolog 30 unit SUBCUT TID 01/14/21 03/02/21 03/02/21 History Flexpen U-100 Insulin] insulin aspart U-100 [Novolog 2 unit SUBCUT TID PRN 03/02/21 03/02/21 Unknown History Flexpen U-100 Insulin] polyvinyl alcohol [Artificial 1 drp OPHTHALMIC (EYE) BID 03/02/21 03/02/21 03/02/21 History Tears (polyvin alc)] semaglutide [Ozempic] 1 mg SUBCUT RAYMOND 03/02/21 03/02/21 03/01/21 History triamcinolone acetonide 1 appl TOPICAL BID PRN 03/02/21 03/02/21 03/02/21 History Physical Exam Vital Signs: Vital Signs: Last Vital Signs Temp 99.7 F 03/02/21 17:07 Pulse 102 H 03/02/21 17:07 Resp 18 03/02/21 17:07 BP 91/46 L 03/02/21 17:07 Pulse Ox 95 03/02/21 17:07 Body Mass Index 33.3 Const: Other: obese General: comfortable and no acute distress Resp: Effort & Inspection: normal respiratory effort Cardio: Rate: regular rate GI: Inspection: No distended Palpation (GI): Soft to palpation, not firm, nontender, no guarding and not rigid Extrem: General: Yes capillary refill normal Results Labs Result diagrams: 03/03/21 05:18 03/03/21 05:18 Labs: Abnormal lab results 03/02/21 03/02/21 Range/Units 14:50 14:50 WBC 12.3 H (4.8-10.8) X10*3/uL MCH 26.1 L (27.0-33.0) pg Neut % (Auto) 79.6 H (45-73) % Lymph % (Auto) 11.2 L (20-40) % Abs Immat Gran (auto) 0.04 H (0.00-0.03) X10*3/uL Absolute Neuts (auto) 9.8 H (2.0-8.3) X10*3/uL Total Bilirubin 1.1 H (0.0-1.0) mg/dL AST 40 H D (5-31) U/L ALT 50 H (0-31) U/L Alkaline Phosphatase 171 H D (39-117) U/L Short CBC 03/02/21 Range/Units 14:50 WBC 12.3 H (4.8-10.8) X10*3/uL Hgb 12.9 (12.0-16.0) g/dl Hct 40.6 (37-47) % Plt Count 277 D (160-400) X10*3/uL BMP 03/02/21 14:50 Sodium 137 Potassium 4.5 Chloride 102 Carbon Dioxide 25 BUN 11 Creatinine 0.70 Calcium 10.2 Liver Function 03/02/21 Range/Units 14:50 Total Bilirubin 1.1 H (0.0-1.0) mg/dL Direct Bilirubin 0.4 (0.0-0.5) mg/dL AST 40 H D (5-31) U/L ALT 50 H (0-31) U/L Alkaline Phosphatase 171 H D (39-117) U/L Albumin 4.3 (3.5-5.0) g/dL All other labs normal. Imaging Abdomen CT scan report/results: report reviewed CT scan - pelvis: report reviewed and image reviewed Assessment and Plan (1) Colitis: Status: Acute She presented with severe diarrhea, non- bloody. Her CT shows difffuse wall thickening of the colon from the transverse to the sigmoid suggestive of colitis.She should be worked up for C diff colitis. She may require IV hydration in view of her severe diarrhea with fluid losses. She otherwise has a very benign exam and does not have any tenderness. I will follow along while she is in the hospital. She also has multiple medical problems including DM with nephropathy, HTN, obesity and cirrhosis.
[2021-03-02] MEDS: levoFLOXacin/D5W 500 MG/100 ML PIGGYBACK 100 MG IV (18:30)
[2021-03-02 18:36] VITALS: BP 110/66; PULSE 96; RESP 18; TEMP 36.8; O2SAT 97
[2021-03-02 18:45] LABS: COVID-19 Test Negative (Negative)
[2021-03-02 18:45] LABS: Glucose Urine UA 100 MG/DL (NEG); Leukocyte Esterase Urine NEG (NEG); Nitrite Urine POS (NEG); PH 6.5 (5.0-8.0); Specific Gravity - Urine <= 1.005 (1.005-1.025); UACC Culture Trigger YES; Urine Blood NEG (NEG); Urine Ketones NEG (NEG); Urine Protein NEG (NEG-TRACE)
[2021-03-02 18:47] LABS: Appearance Urine CLEAR; Color Urine YELLOW
[2021-03-02 18:57] LABS: Bacteria Urine TRACE /LPF; RBC Urine 0-2 /HPF (0); Squamous Epithelial Cell Urine TRACE /LPF
[2021-03-02 20:07] VITALS: BP 121/61; PULSE 92; RESP 16; O2SAT 98
[2021-03-02 20:28] LABS: Glucose, Whole Blood 94 mg/dL (60-115)
--- NOTE | 2021-03-02 20:37 | PM.IMHP ---
History of Present Illness Date of Service: 03/02/21 Chief Complaint: abdominal pain 5-year-old female with past medical history of bipolar disorder, colitis, diabetes, diabetic neuropathy, HLD, HTN, breast cancer status post lumpectomy, who presents to the hospital with complaints of abdominal pain. Patient reports vomiting, diarrhea and abdominal pain that started today. Abdominal pain localized to the lower abdomen radiating to the rest of her abdomen, 10/10, no relieving or exacerbating factors. Patient reports that she was recently diagnosed and treated for colitis by her PCP and was on antibiotics for 2 weeks, with improvement of her symptoms but her symptoms returned today. She denies any fever or chills, denies any chest pain or shortness for breath. No cough. No bloody diarrhea. Reports urinary frequency and dysuria that started few days ago. She denies any lower extremity edema. Admitted to the hospital in December and treated for sepsis secondary to cellulitis and treated with IV clindamycin and sent home with 7 more days of oral clindamycin. On arrival patient hemodynamically stable with no significant abnormal vitals Labs are significant for WBC count of 12.3, she total bili of 1.1, AST of 40, ALT of 50, alk-phos of 171, UA that is positive for nitrites, and some WBC, COVID-[address] showed diffuse wall thickening of the transverse left and sigmoid colon, long segment distribution favors colitis over diverticulitis, possible mild partial obstruction, Past medical history as below on confirmed with patient Review of Systems Review of Systems: Yes all other systems are reviewed and are negative FOR[facility]LY [facility] Medical History Bipolar disorder Colitis Diabetes mellitus Diabetes type 2, uncontrolled Diabetic nephropathy associated with type 2 diabetes mellitus Dyslipidemia Fever of unknown origin Hirsutism HTN (hypertension) Hypercalcemia Hyperlipidemia Hypertension Liver cirrhosis 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 Multinodular goiter (nontoxic) Obesity Urinary incontinence Family History Father History of lung cancer Surgical History History of appendectomy History of tonsillectomy History of tubal ligation Status post laser cataract surgery of both eyes Status post left breast lumpectomy Social History Household Members: None Housing: Apartment Alcohol intake: never Smoking Status: Never smoker Tobacco Type: Cigarette Second Hand Smoke Exposure: No Use of substances other than those prescribed or required for medical reasons: No Advance Directives: No Advance Directives Information Provided: No service: No Current occupational status: unemployed Meds Allergies Allergy/AdvReac Type Severity Reaction Status Date / Time metformin [METFORMIN] Allergy Intermediate ELEVATED Verified 01/14/21 23:16 LIVER ENZYMES, liver damage Active Medications: Current Medications Generic Name Dose Route Start Last Admin Trade Name Freq PRN Reason Stop Dose Admin Pharmacy Consult 1 each 03/02/21 17:22 Consult Rx Perform Med Rec MISCELLANE ONCE PRN Consult order Home Medications Medication Instructions Recorded Confirmed Last Taken Type acetaminophen 1 - 2 tab PO Q8H PRN 08/06/20 03/02/21 01/14/21 History aspirin 1 tab PO DAILY 08/06/20 03/02/21 03/02/21 History atorvastatin 20 mg PO BEDTIME 08/06/20 03/02/21 03/01/21 History benztropine 1 mg PO BID 08/06/20 03/02/21 03/02/21 History fluphenazine decanoate 50 mg IM Q3W 08/06/20 03/02/21 02/10/21 History lisinopril 10 mg PO DAILY 08/06/20 03/02/21 03/02/21 History meclizine 25 mg PO TID PRN 08/06/20 03/02/21 03/02/21 History nortriptyline 75 mg PO BEDTIME 08/06/20 03/02/21 03/01/21 History omeprazole 20 mg PO DAILY 08/06/20 03/02/21 03/02/21 History zolpidem [Ambien] 5 mg PO BEDTIME 08/06/20 03/02/21 01/13/21 History Tresiba FlexTouch U-200 140 unit SUBCUT DAILY 01/14/21 03/02/21 03/02/21 History insulin aspart U-100 [Novolog 30 unit SUBCUT TID 01/14/21 03/02/21 03/02/21 History Flexpen U-100 Insulin] insulin aspart U-100 [Novolog 2 unit SUBCUT TID PRN 03/02/21 03/02/21 Unknown History Flexpen U-100 Insulin] polyvinyl alcohol [Artificial 1 drp OPHTHALMIC (EYE) BID 03/02/21 03/02/21 03/02/21 History Tears (polyvin alc)] semaglutide [Ozempic] 1 mg SUBCUT RAYMOND 03/02/21 03/02/21 03/01/21 History triamcinolone acetonide 1 appl TOPICAL BID PRN 03/02/21 03/02/21 03/02/21 History Physical Exam Vital Signs and Narrative: Vital Signs: Last Vital Signs Temp 98.3 F 03/02/21 18:36 Pulse 92 03/02/21 20:07 Resp 16 03/02/21 20:07 BP 121/61 03/02/21 20:07 Pulse Ox 98 03/02/21 20:07 Body Mass Index 33.3 Const: General: cooperative and no acute distress Orientation/consciousness: patient oriented x3 Eyes: General: appearance normal, both eyes and all related structures Resp: Effort & Inspection: normal respiratory effort and able to speak in complete sentences Cardio: Rate: regular rate Rhythm: regular rhythm GI: Palpation (GI): Soft to palpation Auscultation: normal bowel sounds Skin: General skin exam: no rashes or lesions noted Neuro: General: patient oriented x3 Cognition (Neuro): normal cognition Extrem: General: Yes normal to inspection and Yes no pedal edema Results Labs CBC and Chem 7: 03/02/21 14:50 03/02/21 14:50 Labs: Laboratory Results - last 24 hr 03/02/21 03/02/21 03/02/21 14:50 14:50 16:27 MCV 82.0 MCH 26.1 L MCHC 31.8 RDW 14.8 Plt Count 277 D MPV 9.7 Immature Gran % (Auto) 0.3 Neut % (Auto) 79.6 H Lymph % (Auto) 11.2 L [place] % (Auto) 8.1 Eos % (Auto) 0.5 Baso % (Auto) 0.3 Lymph # (Auto) 1.4 [place] # (Auto) 1.0 Eos # (Auto) 0.1 Baso # (Auto) 0.0 Abs Immat Gran (auto) 0.04 H Absolute Neuts (auto) 9.8 H Absolute Nucleated RBC 0.000 Nucleated RBC % (auto) 0.0 Anion Gap 15 Estim Creat Clear Calc 78.7 Estimated GFR > 60 POC Glucose 63 Random Glucose 81 D Calcium 10.2 Magnesium 1.8 Total Bilirubin 1.1 H Direct Bilirubin 0.4 AST 40 H D ALT 50 H Alkaline Phosphatase 171 H D Total Protein 7.8 Albumin 4.3 Lipase 10 Urine Color Urine Appearance Urine pH Ur Specific [place] Urine Protein Urine Glucose (UA) Urine Ketones Urine Blood Urine Nitrite Ur Leukocyte Esterase Urine RBC Urine WBC Ur Squamous Epith Cells Urine Bacteria COVID-19 (OSCAR) COVID-19 Clin Com 03/02/21 03/02/21 03/02/21 16:49 18:10 18:21 MCV MCH MCHC RDW Plt Count MPV Immature Gran % (Auto) Neut % (Auto) Lymph % (Auto) [place] % (Auto) Eos % (Auto) Baso % (Auto) Lymph # (Auto) [place] # (Auto) Eos # (Auto) Baso # (Auto) Abs Immat Gran (auto) Absolute Neuts (auto) Absolute Nucleated RBC Nucleated RBC % (auto) Anion Gap Estim Creat Clear Calc Estimated GFR POC Glucose 61 Random Glucose Calcium Magnesium Total Bilirubin Direct Bilirubin AST ALT Alkaline Phosphatase Total Protein Albumin Lipase Urine Color YELLOW Urine Appearance CLEAR Urine pH 6.5 Ur Specific [place] <= 1.005 Urine Protein NEG Urine Glucose (UA) 100 H Urine Ketones NEG Urine Blood NEG Urine Nitrite POS H Ur Leukocyte Esterase NEG Urine RBC 0-2 Urine WBC 1-4 Ur Squamous Epith Cells TRACE Urine Bacteria TRACE COVID-19 (OSCAR) Negative COVID-19 Clin Com See Note 03/02/21 20:25 MCV MCH MCHC RDW Plt Count MPV Immature Gran % (Auto) Neut % (Auto) Lymph % (Auto) [place] % (Auto) Eos % (Auto) Baso % (Auto) Lymph # (Auto) [place] # (Auto) Eos # (Auto) Baso # (Auto) Abs Immat Gran (auto) Absolute Neuts (auto) Absolute Nucleated RBC Nucleated RBC % (auto) Anion Gap Estim Creat Clear Calc Estimated GFR POC Glucose 94 Random Glucose Calcium Magnesium Total Bilirubin Direct Bilirubin AST ALT Alkaline Phosphatase Total Protein Albumin Lipase Urine Color Urine Appearance Urine pH Ur Specific [place] Urine Protein Urine Glucose (UA) Urine Ketones Urine Blood Urine Nitrite Ur Leukocyte Esterase Urine RBC Urine WBC Ur Squamous Epith Cells Urine Bacteria COVID-19 (OSCAR) COVID-19 Clin Com Imaging Radiologist's Impressions: Impressions Abdomen/Pelvis CT 03/02/21 14:27 IMPRESSION: Diverticulosis of the colon. Diffuse wall thickening of the transverse left and sigmoid colon. Long segment distribution favors colitis over diverticulitis. Slightly dilated stool-filled fluid-filled right colon questionable for mild partial obstruction. Cirrhotic-appearing liver. Abnormal appearance to the left breast with diffuse skin thickening and asymmetric density. This is not included in the [id number] on prior exams and is difficult to compare. Small nonobstructing left renal stone. Small uterine calcifications probably representing fibroids. Assessment and Plan (1) Colitis: Status: Acute (2) UTI (urinary tract infection): Status: Acute (3) Abdominal pain: Status: Acute (4) Nausea vomiting and diarrhea: Status: Acute This is a 65-year-old female with history of colitis who presents to the hospital with abdominal pain found to have acute colitis # abdominal pain, nausea vomiting and diarrhea - most likely secondary to colitis, infectious versus inflammatory - given her recent antibiotic use most likely infectious - will rule out C diff - patient also has possible mild partial obstruction - will keep NPO - start IV antibiotics - consult surgical team - if does not improve consider consulting GI for possible colonoscopy to rule out inflammatory cause as patient has multiple episodes of colitis in the past # Colitis - infectious versus inflammatory - a recent antibiotic use including clindamycin - rule out C diff, follow so cultures - will start on antibiotics - once symptoms improve consider GI follow-up outpatient this is for possible colonoscopy # breast cancer - status post lumpectomy - follows closely with Hematology-Oncology - continue Femara # diabetes mellitus - patient became hypoglycemic as she is NPO while in the ED - will start her on D 5 LR - can resume low-dose sliding scale insulin, home dose insulin once her sugars are better improved as well as patient eating - diabetic diet # hypertension - continue lisinopril # hyperlipidemia - continue statin DVT prophylaxis: Lovenox Code status: Full code
[2021-03-02 22:00] VITALS: BP 112/51; PULSE 94; RESP 18; TEMP 37.2; O2SAT 98
--- NOTE | 2021-03-02 22:48 | PC.NURSE ---
no change in assessment. resting comfortably. ice chips often. awaits room.
[2021-03-02] MEDS: cefTRIAXone sodium 1 GM in 0.9 % Sodium Chloride 50 ML IV (23:20)
[2021-03-02] MEDS: Atorvastatin Calcium 20 MG TABLET PO (23:21)
[2021-03-02] MEDS: Nortriptyline HCl 25 MG CAPSULE 75 MG PO (23:21)
[2021-03-02] MEDS: Enoxaparin Sodium 40 MG/0.4 ML SYRINGE SUBCUT (23:21)
[2021-03-02] MEDS: Benztropine Mesylate 1 MG TABLET PO (23:21)
[2021-03-02] MEDS: Zolpidem Tartrate 5 MG TABLET PO (23:21)
--- NOTE | 2021-03-02 23:42 | PC.NURSE ---
pt's poc 76, hospitalist notified and ordered D5LR at 70ml/hr. also, give pt juice p.o.
[2021-03-02 23:43] LABS: Glucose, Whole Blood 76 mg/dL (60-115)
[2021-03-03] VITALS (7 sets, daily range): BP systolic 115–132; BP diastolic 53–66; PULSE 90–99; RESP 16–20; TEMP 36.1–37.4; O2SAT 94–97
[2021-03-03] MEDS: metroNIDAZOLE/NS 500 MG/100 ML PIGGYBACK 100 MG IV ×2 (00:04→06:30)
[2021-03-03] MEDS: Dextrose 5 % and Lactated Ring 1,000 ML 70 ML IVCONT ×2 (00:35→14:47)
[2021-03-03 02:20] LABS: Glucose, Whole Blood 143 mg/dL (60-115)
--- NOTE | 2021-03-03 04:50 | PC.NURSE ---
REPORT GIVEN TO RN ON FLOOR, PT READY FOR TRANSPORT.
[2021-03-03] MEDS: oxyCODONE HCl Immed Release 5 MG TABLET PO (05:33)
[2021-03-03 05:52] LABS: Basophils Percent Auto 0.4 % (0-2); Eosinophils Absolute Auto 0.1 X10*3/uL (0.0-0.4); Eosinophils Percent Auto 0.8 % (0-4); Hematocrit 34.4 % (37-47); Imm Gran Abs Auto 0.02 X10*3/uL (0.00-0.03); Imm Gran Pct Auto 0.3 % (0.0-0.4); Lymphocytes Absolute Auto 1.3 X10*3/uL (1.2-4.9); Lymphocytes Percent Auto 17.4 % (20-40); MANUAL DIFF FLAG NO; Mean Corpuscular Hemoglobin 26.3 pg (27.0-33.0); Mean Corpuscular Volume 82.3 fL (80-98); Monocytes Absolute Auto 0.7 X10*3/uL (0.1-1.2); Monocytes Percent Auto 9.3 % (2-11); Neutrophils Absolute Auto 5.3 X10*3/uL (2.0-8.3); Neutrophils Percent Auto 71.8 % (45-73); Platelet Count 226 X10*3/uL (160-400); Red Blood Count 4.18 X10*6/uL (4.20-5.50); Red Cell Distribution Width 14.6 % (11.0-16.0); White Blood Count 7.4 X10*3/uL (4.8-10.8)
[2021-03-03 06:38] LABS: Anion Gap 11 (12-20); Blood Urea Nitrogen 8 mg/dL (9-16); Calcium 9.5 mg/dL (8.4-10.2); Carbon Dioxide 26 mmol/L (22-29); Chloride 105 mmol/L (96-108); Creatinine Clr Calc Pharmacy 78.7; Estimated Glomerular Filt Rate > 60; Glucose Random 140 mg/dL (60-115); Sodium 138 mmol/L (135-145)
[2021-03-03 07:22] LABS: Glucose, Whole Blood 139 mg/dL (60-115)
[2021-03-03] MEDS: Artificial Tears 15 ML DROPS 1 DROP EYE-BOTH ×2 (09:52→21:05)
[2021-03-03] MEDS: lisinopriL 10 MG TABLET PO (09:53)
[2021-03-03] MEDS: Letrozole 2.5 MG TABLET PO (09:53)
[2021-03-03] MEDS: Omeprazole 20 MG CAPSULE.DR PO (09:53)
[2021-03-03] MEDS: Benztropine Mesylate 1 MG TABLET PO ×2 (09:54→21:04)
[2021-03-03] MEDS: Aspirin Enteric Coated 81 MG TABLET.DR PO (09:54)
[2021-03-03 11:18] LABS: Glucose, Whole Blood 132 mg/dL (60-115)
--- NOTE | 2021-03-03 11:39 | MHC.CM.PN ---
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
--- NOTE | 2021-03-03 13:07 | PM.PNGS ---
Subjective Subjective Date of Service: 03/03/21 Interval history: Feels much better Says diarrhea has resolved No abdominal pain No nausea or vomiting Physical Exam Vital Signs: Vital Signs: Last Vital Signs Temp 97.0 F 03/03/21 11:38 Pulse 91 03/03/21 11:38 Resp 20 03/03/21 11:38 BP 118/54 L 03/03/21 11:38 Pulse Ox 97 03/03/21 11:38 Body Mass Index 33.3 Laboratory Results - last 24 hr 03/02/21 03/02/21 03/02/21 14:50 14:50 16:27 WBC 12.3 H RBC 4.95 Hgb 12.9 Hct 40.6 MCV 82.0 MCH 26.1 L MCHC 31.8 RDW 14.8 Plt Count 277 D MPV 9.7 Immature Gran % (A uto) 0.3 Neut % (Auto) 79.6 H Lymph % (Auto) 11.2 L [place] % (Auto) 8.1 Eos % (Auto) 0.5 Baso % (Auto) 0.3 Lymph # (Auto) 1.4 [place] # (Auto) 1.0 Eos # (Auto) 0.1 Baso # (Auto) 0.0 Abs Immat Gran (au to) 0.04 H Absolute Neuts (au to) 9.8 H Absolute Nucleated RBC 0.000 Nucleated RBC % (a uto) 0.0 Sodium 137 Potassium 4.5 Chloride 102 Carbon Dioxide 25 Anion Gap 15 BUN 11 Creatinine 0.70 Estim Creat Clear Calc 78.7 Estimated GFR > 60 POC Glucose 63 Random Glucose 81 D Calcium 10.2 Magnesium 1.8 Total Bilirubin 1.1 H Direct Bilirubin 0.4 AST 40 H D ALT 50 H Alkaline Phosphata se 171 H D Total Protein 7.8 Albumin 4.3 Lipase 10 Urine Color Urine Appearance Urine pH Ur Specific [place] Urine Protein Urine Glucose (UA) Urine Ketones Urine Blood Urine Nitrite Ur Leukocyte [place] Urine RBC Urine WBC Ur Squamous Epith Cells Urine Bacteria COVID-19 (OSCAR) COVID-19 Clin Com 03/02/21 03/02/21 03/02/21 16:49 18:10 18:21 WBC RBC Hgb Hct MCV MCH MCHC RDW Plt Count MPV Immature Gran % (A uto) Neut % (Auto) Lymph % (Auto) [place] % (Auto) Eos % (Auto) Baso % (Auto) Lymph # (Auto) [place] # (Auto) Eos # (Auto) Baso # (Auto) Abs Immat Gran (au to) Absolute Neuts (au to) Absolute Nucleated RBC Nucleated RBC % (a uto) Sodium Potassium Chloride Carbon Dioxide Anion Gap BUN Creatinine Estim Creat Clear Calc Estimated GFR POC Glucose 61 Random Glucose Calcium Magnesium Total Bilirubin Direct Bilirubin AST ALT Alkaline Phosphata se Total Protein Albumin Lipase Urine Color YELLOW Urine Appearance CLEAR Urine pH 6.5 Ur Specific [place] <= 1.005 Urine Protein NEG Urine Glucose (UA) 100 H Urine Ketones NEG Urine Blood NEG Urine Nitrite POS H Ur Leukocyte [place] NEG Urine RBC 0-2 Urine WBC 1-4 Ur Squamous Epith Cells TRACE Urine Bacteria TRACE COVID-19 (OSCAR) Negative COVID-19 Clin Com See Note 03/02/21 03/02/21 03/03/21 20:25 23:25 02:15 WBC RBC Hgb Hct MCV MCH MCHC RDW Plt Count MPV Immature Gran % (A uto) Neut % (Auto) Lymph % (Auto) [place] % (Auto) Eos % (Auto) Baso % (Auto) Lymph # (Auto) [place] # (Auto) Eos # (Auto) Baso # (Auto) Abs Immat Gran (au to) Absolute Neuts (au to) Absolute Nucleated RBC Nucleated RBC % (a uto) Sodium Potassium Chloride Carbon Dioxide Anion Gap BUN Creatinine Estim Creat Clear Calc Estimated GFR POC Glucose 94 76 143 H Random Glucose Calcium Magnesium Total Bilirubin Direct Bilirubin AST ALT Alkaline Phosphata se Total Protein Albumin Lipase Urine Color Urine Appearance Urine pH Ur Specific [place] Urine Protein Urine Glucose (UA) Urine Ketones Urine Blood Urine Nitrite Ur Leukocyte [place] Urine RBC Urine WBC Ur Squamous Epith Cells Urine Bacteria COVID-19 (OSCAR) COVID-19 Clin Com 03/03/21 03/03/21 03/03/21 05:18 05:18 07:14 WBC 7.4 RBC 4.18 L Hgb 11.0 L Hct 34.4 L MCV 82.3 MCH 26.3 L MCHC 32.0 RDW 14.6 Plt Count 226 MPV 10.0 Immature Gran % (A uto) 0.3 Neut % (Auto) 71.8 Lymph % (Auto) 17.4 L [place] % (Auto) 9.3 Eos % (Auto) 0.8 Baso % (Auto) 0.4 Lymph # (Auto) 1.3 [place] # (Auto) 0.7 Eos # (Auto) 0.1 Baso # (Auto) 0.0 Abs Immat Gran (au to) 0.02 Absolute Neuts (au to) 5.3 Absolute Nucleated RBC 0.000 Nucleated RBC % (a uto) 0.0 Sodium 138 Potassium 4.0 Chloride 105 Carbon Dioxide 26 Anion Gap 11 L BUN 8 L Creatinine 0.70 Estim Creat Clear Calc 78.7 Estimated GFR > 60 POC Glucose 139 H Random Glucose 140 H D Calcium 9.5 D Magnesium Total Bilirubin Direct Bilirubin AST ALT Alkaline Phosphata se Total Protein Albumin Lipase Urine Color Urine Appearance Urine pH Ur Specific [place] Urine Protein Urine Glucose (UA) Urine Ketones Urine Blood Urine Nitrite Ur Leukocyte [place] Urine RBC Urine WBC Ur Squamous Epith Cells Urine Bacteria COVID-19 (OSCAR) COVID-19 [place] Com 03/03/21 11:14 WBC RBC Hgb Hct MCV MCH MCHC RDW Plt Count MPV Immature Gran % (A uto) Neut % (Auto) Lymph % (Auto) [place] % (Auto) Eos % (Auto) Baso % (Auto) Lymph # (Auto) [place] # (Auto) Eos # (Auto) Baso # (Auto) Abs Immat Gran (au to) Absolute Neuts (au to) Absolute Nucleated RBC Nucleated RBC % (a uto) Sodium Potassium Chloride Carbon Dioxide Anion Gap BUN Creatinine Estim Creat Clear Calc Estimated GFR POC Glucose 132 H Random Glucose Calcium Magnesium Total Bilirubin Direct Bilirubin AST ALT Alkaline Phosphata se Total Protein Albumin Lipase Urine Color Urine Appearance Urine pH Ur Specific [place] Urine Protein Urine Glucose (UA) Urine Ketones Urine Blood Urine Nitrite Ur Leukocyte [place] a[place] Urine RBC Urine WBC Ur Squamous Epith Cells Urine Bacteria COVID-19 (OSCAR) COVID-19 Clin Com Const: General: comfortable and no acute distress Resp: Effort & Inspection: normal respiratory effort Cardio: Rhythm: regular rhythm GI: Inspection: No distended Palpation (GI): Soft to palpation, not firm, nontender and no guarding Progress Note: A&P Assessment and plan (1) Colitis: Status: Acute Assessment and Plan: Diarrhea has resolved No abdominal pain Advance diet as tolerated Stool C diff pending Continues to have a very benign exam Fall Risk Details Current Medications: Current Medications Generic Name Dose Route Start Last Admin Trade Name Freq PRN Reason Stop Dose Admin Acetaminophen 650 mg 03/02/21 22:49 Acetaminophen 325 Mg Tablet PO Q6H PRN Pain, Mild (Pain Scale 1-3) Artificial Tears 1 drop 03/02/21 22:49 03/03/21 09:52 Artificial Tears 15 Ml Drops EYE-BOTH 1 drop BID DUANE Administration Aspirin 81 mg 03/03/21 09:00 03/03/21 09:54 Aspirin Enteric Coated 81 Mg Tablet.Dr PO 81 mg DAILY DUANE Administration Atorvastatin Calcium 20 mg 03/02/21 22:49 03/02/21 23:21 Atorvastatin Calcium 20 Mg Tablet PO 20 mg BEDTIME DUANE Administration Benztropine Mesylate 1 mg 03/02/21 22:49 03/03/21 09:54 Benztropine Mesylate 1 Mg Tablet PO 1 mg BID DUANE Administration Enoxaparin Sodium 40 mg 03/02/21 23:00 03/02/21 23:21 Enoxaparin Sodium 40 Mg/0.4 Ml Syringe SUBCUT 40 mg Q24H DUANE Administration Ceftriaxone Sodium 1 gm/ 50 mls @ 100 mls/hr 03/02/21 23:00 03/03/21 00:29 Sodium Chloride IV Infused Q24H DUANE Infusion Metronidazole 500 mg in 100 mls @ 100 mls/hr 03/02/21 23:00 03/03/21 07:51 Flagyl IV Infused Q8H DUANE Infusion Dextrose/Lactated Ringer's 1,000 mls @ 70 mls/hr 03/02/21 23:45 03/03/21 00:35 D5lr IVCONT 70 mls/hr .[id number] DUANE Administration Insulin Human Lispro 30 unit 03/03/21 08:00 03/03/21 11:29 Insulin Lispro 100 Unit/Ml 3 Ml Vial SUBCUT Not Given TIDWM DUANE Letrozole 2.5 mg 03/03/21 09:00 03/03/21 09:53 Letrozole 2.5 Mg Tablet PO 2.5 mg DAILY DUANE Administration Lisinopril 10 mg 03/03/21 09:00 03/03/21 09:53 Lisinopril 10 Mg Tablet PO 10 mg DAILY DUANE Administration Protocol Meclizine HCl 25 mg 03/02/21 22:49 Meclizine Hcl 25 Mg Tablet PO TID PRN Dizziness Nortriptyline HCl 75 mg 03/02/21 22:49 03/02/21 23:21 Nortriptyline Hcl 25 Mg Capsule PO 75 mg BEDTIME DUANE Administration Omeprazole 20 mg 03/03/21 09:00 03/03/21 09:53 Omeprazole 20 Mg Capsule.Dr PO 20 mg DAILY DUANE Administration Oxycodone HCl 5 mg 03/02/21 22:49 03/03/21 05:33 Oxycodone Hcl Immed Release 5 Mg Tablet PO 5 mg Q6H PRN Administration Pain, Severe (Pain Scale 7-10) Pharmacy Consult 1 each 03/02/21 17:22 Consult Rx Perform Med Rec MISCELLANE ONCE PRN Consult order Sodium Chloride 3 ml 03/03/21 00:00 03/03/21 07:41 0.9 % Sodium Chloride Flush 3 Ml Syringe IVFLUSH Not Given QSHIFT DUANE Triamcinolone Acetonide 1 appl 03/02/21 22:49 Triamcinolone Acet 0.1 % Cream 15 Gm Tube TOPICAL BID PRN Itching Protocol Zolpidem Tartrate 5 mg 03/02/21 22:49 03/02/21 23:21 Zolpidem Tartrate 5 Mg Tablet PO 5 mg BEDTIME DUANE Administration Time Spent With Patient Time: Total time spent is greater than 50% in coordination of care (as documented) at patient's floor/unit and/or counseling patient: Time with patient: less than 15 minutes
--- NOTE | 2021-03-03 14:39 | HO.PM.IMPN ---
Subjective Subjective Date of Service: 03/03/21 Interval History: seen and examined this AM reports diarrhea resolved and no abdominal pain ROS General - no fevers or chills Cardiovascular - no chest pain Respiratory - no shortness of breath or cough Abdominal- no abdominal pain, nausea, vomiting, diarrhea Physical Exam Vital Signs: Vital Signs: Last Vital Signs Temp 97.0 F 03/03/21 11:38 Pulse 91 03/03/21 11:38 Resp 20 03/03/21 11:38 BP 118/54 L 03/03/21 11:38 Pulse Ox 97 03/03/21 11:38 Body Mass Index 33.3 Const: Other: General - no acute distress, appears comfortable Cardiovascular - regular rate and rhythm, S1-S2 Lungs - normal respiratory effort, clear to auscultation bilaterally, no wheezing Abdomen - soft, nontender, no rebound or guarding Extremities - no edema bilaterally Neuro - awake and alert, no focal deficits Objective Data Current Medications Generic Name Dose Route Start Last Admin Trade Name Freq PRN Reason Stop Dose Admin Acetaminophen 650 mg 03/02/21 22:49 Acetaminophen 325 Mg Tablet PO Q6H PRN Pain, Mild (Pain Scale 1-3) Artificial Tears 1 drop 03/02/21 22:49 03/03/21 09:52 Artificial Tears 15 Ml Drops EYE-BOTH 1 drop BID DUANE Administration Aspirin 81 mg 03/03/21 09:00 03/03/21 09:54 Aspirin Enteric Coated 81 Mg Tablet.Dr PO 81 mg DAILY DUANE Administration Atorvastatin Calcium 20 mg 03/02/21 22:49 03/02/21 23:21 Atorvastatin Calcium 20 Mg Tablet PO 20 mg BEDTIME DUANE Administration Benztropine Mesylate 1 mg 03/02/21 22:49 03/03/21 09:54 Benztropine Mesylate 1 Mg Tablet PO 1 mg BID DUANE Administration Enoxaparin Sodium 40 mg 03/02/21 23:00 03/02/21 23:21 Enoxaparin Sodium 40 Mg/0.4 Ml Syringe SUBCUT 40 mg Q24H DUANE Administration Ceftriaxone Sodium 1 gm/ 50 mls @ 100 mls/hr 03/02/21 23:00 03/03/21 00:29 Sodium Chloride IV Infused Q24H DUANE Infusion Metronidazole 500 mg in 100 mls @ 100 mls/hr 03/02/21 23:00 03/03/21 07:51 Flagyl IV Infused Q8H DUANE Infusion Dextrose/Lactated Ringer's 1,000 mls @ 70 mls/hr 03/02/21 23:45 03/03/21 00:35 D5lr IVCONT 70 mls/hr .[id number] DUANE Administration Insulin Human Lispro 30 unit 03/03/21 08:00 03/03/21 11:29 Insulin Lispro 100 Unit/Ml 3 Ml Vial SUBCUT Not Given TIDWM [facility] Letrozole 2.5 mg 03/03/21 09:00 03/03/21 09:53 Letrozole 2.5 Mg Tablet PO 2.5 mg DAILY DUANE Administration Lisinopril 10 mg 03/03/21 09:00 03/03/21 09:53 Lisinopril 10 Mg Tablet PO 10 mg DAILY [facility] Administration Protocol Meclizine HCl 25 mg 03/02/21 22:49 Meclizine Hcl 25 Mg Tablet PO TID PRN Dizziness Nortriptyline HCl 75 mg 03/02/21 22:49 03/02/21 23:21 Nortriptyline Hcl 25 Mg Capsule PO 75 mg BEDTIME DUANE Administration Omeprazole 20 mg 03/03/21 09:00 03/03/21 09:53 Omeprazole 20 Mg Capsule.Dr PO 20 mg DAILY [facility] Administration Oxycodone HCl 5 mg 03/02/21 22:49 03/03/21 05:33 Oxycodone Hcl Immed Release 5 Mg Tablet PO 5 mg Q6H PRN Administration Pain, Severe (Pain Scale 7-10) Pharmacy Consult 1 each 03/02/21 17:22 Consult Rx Perform Med Rec MISCELLANE ONCE PRN Consult order Sodium Chloride 3 ml 03/03/21 00:00 03/03/21 07:41 0.9 % Sodium Chloride Flush 3 Ml Syringe IVFLUSH Not Given QSHIFT [facility] Triamcinolone Acetonide 1 appl 03/02/21 22:49 Triamcinolone Acet 0.1 % Cream 15 Gm Tube TOPICAL BID PRN Itching Protocol Zolpidem Tartrate 5 mg 03/02/21 22:49 03/02/21 23:21 Zolpidem Tartrate 5 Mg Tablet PO 5 mg BEDTIME [facility] Administration Labs CBC & Chem 7: 03/03/21 05:18 03/03/21 05:18 Microbiology Microbiology Results: Microbiology 03/02/21 Unknown Urine clean catch - Clean Catch Midstream Urine Culture - Preliminary Culture too young to evaluate. Assessment and Plan (1) Colitis: Status: Acute Assessment and Plan: This is a 65 yo F with a PMH of bipolar disorder, colitis, DM, diabetic neuropahty, HLD, HTN, Breast ca - s/p lumpectomy who presented to the hospital with complaints of abdominal pain with associated diarrhea and vomiting. She was recently treated with colitis as an outpatient with antibiotics for 2 weeks. 1. Abdominal pain / nausea, vomiting / diarrhea CT showing concern for colitis and question mild obstruction clinically symptoms improving gen surg on board - recs appreciated c. diff studies ordered - but uncollected as no further diarrhea will start on full liquids and advance diet if recurrent diarrhea -- send stool studies given that she has been recently treated for colitis -- will hold antibiotics may need GI eval - possibly outpatient if symptoms continue to improve 2. DM became hypoglycemic in the ED continue with with with dextrose hold sliding scale, restart as sugars improve 3. HTN home meds 4. HLD statin 5. Mood continue home meds Full Code DVT pptx, Lovenox Dispo: home tomorrow if symptoms continue to improve
[2021-03-03 16:14] LABS: Glucose, Whole Blood 172 mg/dL (60-115)
[2021-03-03] MEDS: Insulin Lispro 100 UNIT/ML 3 ML VIAL 30 UNIT SUBCUT (17:07)
[2021-03-03] MEDS: 0.9 % Sodium Chloride Flush 3 ML SYRINGE IVFLUSH (17:08)
[2021-03-03 18:48] LABS: Glucose, Whole Blood 251 mg/dL (60-115)
[2021-03-03 20:56] LABS: Glucose, Whole Blood 114 mg/dL (60-115)
[2021-03-03] MEDS: Nortriptyline HCl 25 MG CAPSULE 75 MG PO (21:03)
[2021-03-03] MEDS: Atorvastatin Calcium 20 MG TABLET PO (21:04)
[2021-03-03] MEDS: Enoxaparin Sodium 40 MG/0.4 ML SYRINGE SUBCUT (21:04)
[2021-03-03] MEDS: Zolpidem Tartrate 5 MG TABLET PO (21:04)
[2021-03-04] VITALS: BP 121/54; PULSE 100; RESP 18; TEMP 36.8; O2SAT 93
[2021-03-04 00:01] LABS: Glucose, Whole Blood 214 mg/dL (60-115)
[2021-03-04] MEDS: 0.9 % Sodium Chloride Flush 3 ML SYRINGE IVFLUSH (00:57)
[2021-03-04 03:56] VITALS: BP 125/57; PULSE 89; RESP 20; TEMP 36.4; O2SAT 94
[2021-03-04] MEDS: Dextrose 5 % and Lactated Ring 1,000 ML 70 ML IVCONT (05:52)
[2021-03-04 07:12] LABS: Glucose, Whole Blood 164 mg/dL (60-115)
[2021-03-04 07:23] VITALS: BP 135/62; PULSE 92; RESP 20; TEMP 37.2; O2SAT 95
[2021-03-04] MEDS: Acetaminophen 325 MG TABLET 650 MG PO (08:37)
[2021-03-04 08:39] VITALS: BP 135/62; PULSE 95
[2021-03-04] MEDS: Aspirin Enteric Coated 81 MG TABLET.DR PO (08:39)
[2021-03-04] MEDS: Letrozole 2.5 MG TABLET PO (08:39)
[2021-03-04] MEDS: lisinopriL 10 MG TABLET PO (08:39)
[2021-03-04] MEDS: Benztropine Mesylate 1 MG TABLET PO (08:39)
[2021-03-04] MEDS: Insulin Lispro 100 UNIT/ML 3 ML VIAL 30 UNIT SUBCUT (08:40)
[2021-03-04] MEDS: Omeprazole 20 MG CAPSULE.DR PO (08:40)
[2021-03-04] MEDS: Artificial Tears 15 ML DROPS 1 DROP EYE-BOTH (08:41)
--- NOTE | 2021-03-04 10:22 | P.DS_ITS ---
DS: Providers Provider Date of Service: 03/04/21 Date of admission: 03/02/21 20:50 Primary care physician: Gopi Jackson MD Consults: 03/03/21 05:48 Consult to General Surgery Routine Consulting Provider: Fredis Khoury Reason for consultation: partial SBO Has provider been notified: No DS: Diagnosis Discharge Diagnosis (1) Colitis: Status: Acute (2) Abdominal pain: Status: Acute (3) Nausea vomiting and diarrhea: Status: Acute DS: Medications Discharge Medications Home Medications: Home Medications Medication Instructions Recorded Confirmed acetaminophen 1 - 2 tab PO Q8H PRN 08/06/20 03/02/21 aspirin 1 tab PO DAILY 08/06/20 03/02/21 atorvastatin 20 mg PO BEDTIME 08/06/20 03/02/21 benztropine 1 mg PO BID 08/06/20 03/02/21 fluphenazine decanoate 50 mg IM Q3W 08/06/20 03/02/21 lisinopril 10 mg PO DAILY 08/06/20 03/02/21 meclizine 25 mg PO TID PRN 08/06/20 03/02/21 nortriptyline 75 mg PO BEDTIME 08/06/20 03/02/21 omeprazole 20 mg PO DAILY 08/06/20 03/02/21 zolpidem [Ambien] 5 mg PO BEDTIME 08/06/20 03/02/21 Tresiba FlexTouch U-200 140 unit SUBCUT DAILY 01/14/21 03/02/21 insulin aspart U-100 [Novolog 30 unit SUBCUT TID 01/14/21 03/02/21 Flexpen U-100 Insulin] Ozempic 1 mg SUBCUT RAYMOND 03/02/21 03/02/21 insulin aspart U-100 [Novolog 2 unit SUBCUT TID PRN 03/02/21 03/02/21 Flexpen U-100 Insulin] polyvinyl alcohol [Artificial 1 drp OPHTHALMIC (EYE) BID 03/02/21 03/02/21 Tears (polyvin alc)] triamcinolone acetonide 1 appl TOPICAL BID PRN 03/02/21 03/02/21 Previous Rx's Medication Instructions Recorded pen needle, diabetic 32 gauge x #400 ea 08/12/20 blood sugar diagnostic #100 ea 01/01/21 letrozole [Femara] 2.5 mg PO DAILY #90 tab 03/02/21 meloxicam 7.5 mg tablet 7.5 mg PO DAILY 30 Days #30 tab 03/03/21 DS: Summary Hospital Course Hospital Course: Patient presented to the hospital complaints of abdominal pain, nausea, vomiting, diarrhea. Her CT scan was suggestive of colitis and so she was initially treated with IV antibiotics. C diff studies were sent, however patient's diarrhea resolved and were on collected. Her abdominal pain quickly resolved as well. Her diet was advanced which she tolerated. She will be discharged home without any antibiotics. Her CT scan also mentioned the possibility of mild obstruction of the colon, however she was evaluated by General surgery and clinically she had no symptoms to suggest this. She should have a referral to Gastroenterology for an outpatient colonoscopy. Furthermore, patient was mildly hypoglycemic in the emergency room and this was due to poor oral intake. She was started on D5 LR drip and once her diet improved her hypoglycemia resolved. Lastly, her initial UA was suggestive of possible urinary tract infection, her urine culture resulted mixed and since she had no symptoms she will not discharged on any antibiotic. Time Spent with Patient Time attestation: Total time spent providing and/or coordinating discharge services: Discharge coordination time: Greater than 30 minutes Physical Exam Vital Signs: Vital Signs: Last Vital Signs Temp 99.0 F 03/04/21 07:23 Pulse 95 03/04/21 08:39 Resp 20 03/04/21 07:23 BP 135/62 03/04/21 08:39 Pulse Ox 95 03/04/21 07:23 Body Mass Index 33.3 Const: Other: General - no acute distress, appears comfortable Cardiovascular - regular rate and rhythm, S1-S2 Lungs - normal respiratory effort, clear to auscultation bilaterally, no wheezing Abdomen - soft, nontender, no rebound or guarding Extremities - no edema bilaterally Neuro - awake and alert, no focal deficits DS: Data Data Completed and Pending Labs on day of discharge: Laboratory Results - last 24 hr 03/03/21 03/03/21 03/03/21 11:14 16:03 18:43 POC Glucose 132 H 172 H 251 H 03/03/21 03/03/21 03/04/21 20:45 23:23 07:03 POC Glucose 114 214 H 164 H Preliminary micro results at discharge 03/02/21 18:21 Blood Culture - Preliminary Blood - Venous No growth after 24 hours. 03/02/21 18:20 Blood Culture - Preliminary Blood - Venous No growth after 24 hours. Discharge Plan Discharge Patient Disposition: Home Health Service Discharge Diagnosis: Nausea/vomtiing/diarrhea Referrals: Name,MD Gopi [Primary Care Provider] - 1 Week Discharge Medications: Continued (DME) pen needle, diabetic [BD Edilia 2nd Gen Pen Needle] 32 gauge x 5/32 needle See Rx Instructions .MEDSUPPLY Qty: 400 RF: 4 (DME) FreeStyle Lite Strips Strip See Rx Instructions .MEDSUPPLY Qty: 100 RF: 6 meloxicam 7.5 mg tablet 7.5 mg PO DAILY 30 Days Qty: 30 RF: 3 insulin aspart U-100 [Novolog Flexpen U-100 Insulin] 100 unit/mL (3 mL) insulin pen 30 unit subcut TID RF: 0 Tresiba FlexTouch U-200 200 unit/mL (3 mL) insulin pen 140 unit subcut DAILY RF: 0 polyvinyl alcohol [Artificial Tears (polyvin alc)] 1.4 % drops 1 drp ophthalmic (eye) BID RF: 0 triamcinolone acetonide 0.1 % cream 1 appl topical BID PRN (Reason: Itching) RF: 0 Ozempic 1 mg/dose (2 mg/1.5 mL) pen injector 1 mg subcut RAYMOND RF: 0 insulin aspart U-100 [Novolog Flexpen U-100 Insulin] 100 unit/mL (3 mL) insulin pen 2 unit subcut TID PRN (Reason: Hyperglycemia) RF: 0 nortriptyline 75 mg capsule 75 mg PO BEDTIME RF: 0 zolpidem [Ambien] 5 mg Tablet 5 mg PO BEDTIME RF: 0 atorvastatin 20 mg tablet 20 mg PO BEDTIME RF: 0 aspirin 81 mg tablet,delayed release (DR/EC) 1 tab PO DAILY RF: 0 acetaminophen 500 mg tablet 1 - 2 tab PO Q8H PRN (Reason: pain) RF: 0 fluphenazine decanoate 25 mg/mL solution 50 mg IM Q3W RF: 0 meclizine 25 mg Tablet 25 mg PO TID PRN (Reason: Dizziness) RF: 0 lisinopril 10 mg tablet 10 mg PO DAILY RF: 0 benztropine 1 mg tablet 1 mg PO BID RF: 0 omeprazole 20 mg capsule,delayed release(DR/EC) 20 mg PO DAILY RF: 0 letrozole [Femara] 2.5 mg tablet 2.5 mg PO DAILY Qty: 90 RF: 3 Discharge Orders: Discharge Order (Routine); Ordered 03/04/21 Ordered By: Geoffrey Honeycutt Diet: advance to usual diet and regular diet Activity on Discharge: As tolerated Stand Alone Forms: Patient Portal Discharge page Care Plan Goals: To stay healthy and out of the hospital. Health Concerns: Abdominal pain, nausea/vomiting/diarrhea. Plan of Treatment: Abdominal pain, nausea/vomiting/diarrhea - all resolved Assessment: 65 yo female admitted for colitis by CT scan. Initially treated with IV anti biotics. Diarrhea resolved quickly. No evidence of bacterial colitis found and she will be d/c home without any antibiotics. Should have referral to GI for colonoscopic evaluation if not done recently.
--- NOTE | 2021-03-04 10:26 | MHC.CM.PN ---
pt dcd home today with resumption of aveanna for med management and adaptive physical education specialist servceis mon tue and fro 230 to 5
[2021-03-04 10:53] LABS: Leukocytes Stool Qualitative NEGATIVE (NEGATIVE)
--- NOTE | 2021-03-04 10:54 | PM.PNGS ---
Subjective Subjective Date of Service: 03/04/21 Interval history: Feels much better Diarrhea resolved Now has good BMs Physical Exam Vital Signs: Vital Signs: Last Vital Signs Temp 99.0 F 03/04/21 07:23 Pulse 95 03/04/21 08:39 Resp 20 03/04/21 07:23 BP 135/62 03/04/21 08:39 Pulse Ox 95 03/04/21 07:23 Body Mass Index 33.3 Laboratory Results - last 24 hr 03/03/21 03/03/21 03/03/21 11:14 16:03 18:43 POC Glucose 132 H 172 H 251 H Stool Leukocytes, Qual 03/03/21 03/03/21 03/04/21 20:45 23:23 07:03 POC Glucose 114 214 H 164 H Stool Leukocytes, Qual 03/04/21 09:46 POC Glucose Stool Leukocytes, Qual NEGATIVE Const: General: comfortable and no acute distress Resp: Effort & Inspection: normal respiratory effort Cardio: Rhythm: regular rhythm GI: Palpation (GI): Soft to palpation, nontender and no guarding Progress Note: A&P Assessment and plan (1) Nausea vomiting and diarrhea: Status: Acute Assessment and Plan: Diarrhea resolved Consistent with colitis Abdomen remains benign Good GI function For discharge home today as per hospitalist C diff pending Fall Risk Details Current Medications: Current Medications Generic Name Dose Route Start Last Admin Trade Name Galina PRN Reason Stop Dose Admin Acetaminophen 650 mg 03/02/21 22:49 03/04/21 08:37 Acetaminophen 325 Mg Tablet PO 650 mg Q6H PRN Administration Pain, Mild (Pain Scale 1-3) Artificial Tears 1 drop 03/02/21 22:49 03/04/21 08:41 Artificial Tears 15 Ml Drops EYE-BOTH 1 drop BID DUANE Administration Aspirin 81 mg 03/03/21 09:00 03/04/21 08:39 Aspirin Enteric Coated 81 Mg Tablet.Dr PO 81 mg DAILY DUANE Administration Atorvastatin Calcium 20 mg 03/02/21 22:49 03/03/21 21:04 Atorvastatin Calcium 20 Mg Tablet PO 20 mg BEDTIME DUANE Administration Benztropine Mesylate 1 mg 03/02/21 22:49 03/04/21 08:39 Benztropine Mesylate 1 Mg Tablet PO 1 mg BID DUANE Administration Enoxaparin Sodium 40 mg 03/02/21 23:00 03/03/21 21:04 Enoxaparin Sodium 40 Mg/0.4 Ml Syringe SUBCUT 40 mg Q24H DUANE Administration Dextrose/Lactated Ringer's 1,000 mls @ 70 mls/hr 03/02/21 23:45 03/04/21 08:49 D5lr IVCONT Infused .[id number] DUANE Infusion Insulin Human Lispro 30 unit 03/03/21 08:00 03/04/21 08:40 Insulin Lispro 100 Unit/Ml 3 Ml Vial SUBCUT 30 unit TIDWM [facility]ANE Administration Letrozole 2.5 mg 03/03/21 09:00 03/04/21 08:39 Letrozole 2.5 Mg Tablet PO 2.5 mg DAILY DUANE Administration Lisinopril 10 mg 03/03/21 09:00 03/04/21 08:39 Lisinopril 10 Mg Tablet PO 10 mg DAILY DUANE Administration Protocol Meclizine HCl 25 mg 03/02/21 22:49 Meclizine Hcl 25 Mg Tablet PO TID PRN Dizziness Nortriptyline HCl 75 mg 03/02/21 22:49 03/03/21 21:03 Nortriptyline Hcl 25 Mg Capsule PO 75 mg BEDTIME DUANE Administration Omeprazole 20 mg 03/03/21 09:00 03/04/21 08:40 Omeprazole 20 Mg Capsule.Dr PO 20 mg DAILY DUANE Administration Oxycodone HCl 5 mg 03/02/21 22:49 03/03/21 05:33 Oxycodone Hcl Immed Release 5 Mg Tablet PO 5 mg Q6H PRN Administration Pain, Severe (Pain Scale 7-10) Pharmacy Consult 1 each 03/02/21 17:22 Consult Rx Perform Med Rec MISCELLANE ONCE PRN Consult order Sodium Chloride 3 ml 03/03/21 00:00 03/04/21 08:30 0.9 % Sodium Chloride Flush 3 Ml Syringe IVFLUSH Not Given QSHIFT [facility] Triamcinolone Acetonide 1 appl 03/02/21 22:49 Triamcinolone Acet 0.1 % Cream 15 Gm Tube TOPICAL BID PRN Itching Protocol Zolpidem Tartrate 5 mg 03/02/21 22:49 03/03/21 21:04 Zolpidem Tartrate 5 Mg Tablet PO 5 mg BEDTIME DUANE Administration Time Spent With Patient Time: Total time spent is greater than 50% in coordination of care (as documented) at patient's floor/unit and/or counseling patient: Time with patient: 15 - 24 minutes
[2021-03-04 11:00] VITALS: BP 118/60; PULSE 86; RESP 20; TEMP 37.1; O2SAT 94
[2021-03-04 11:14] LABS: Glucose, Whole Blood 125 mg/dL (60-115)
[2021-03-04 13:19] LABS: CDIFF Ag Positive (Negative); CDiff Toxin Positive (Negative)
[2021-03-04 13:20] LABS: CDIFF Internal ctrl Dots and bkg OK (V)
--- NOTE | 2021-03-04 13:38 | PC.NURSE ---
ORGANIC PREPARATION TECHNICIAN USED FOR DISCHARGE. PATIENT VERBALIZES UNDERSTANDING TO NEW MEDICATION USE. IV REMOVED. PATIENT NOT ON A TELE MONITOR. DENIES PAIN.
== END 2021-03-04 16:15 | disposition home health service (06) | DRG 373 ==
LOC: HO.ED 17:29 → HO.EDOVER 21:14 → HO.IMC 03-03 02:44
PROVIDERS: Physician Assistant; Admitting Provider Internal Medicine; Emergency Provider Internal Medicine; PCP Internal Medicine Geriatric Medicine; Visit Provider Family Medicine
DX: A04.72 Enterocolitis due to Clostridium difficile, not specified as recurrent (principal); E78.5 Hyperlipidemia, unspecified; F31.9 Bipolar disorder, unspecified; I10 Essential (primary) hypertension; E11.9 Type 2 diabetes mellitus without complications; Z20.822 Contact with and (suspected) exposure to COVID-19; Z79.4 Long term (current) use of insulin; Z79.82 Long term (current) use of aspirin; Z79.899 Other long term (current) drug therapy
CPT/HCPCS: 36415; 74177; 80048; 80076; 81001; 81003; 82947; 83690; 83735; 85025; 87040; 87045; 87046; 87086; 87324; 87449; 87635; 89055; 96374; 96375; 99285; J0696; J1650; J1956; J2405; Q9967

== ENCOUNTER → 2021-04-23 12:04 | Outpatient (BNVA) | payer MEDICARE, MEDICAID, SELFPAY | PROVIDERS: PCP Internal Medicine Geriatric Medicine; Visit Provider Internal Medicine Endocrinology, Diabetes & Metabolism | DX: E11.65 Type 2 diabetes mellitus with hyperglycemia (principal); E11.21 Type 2 diabetes mellitus with diabetic nephropathy; E04.2 Nontoxic multinodular goiter; E78.5 Hyperlipidemia, unspecified; E66.9 Obesity, unspecified; E83.52 Hypercalcemia; I10 Essential (primary) hypertension; L68.0 Hirsutism; Z79.4 Long term (current) use of insulin | CPT/HCPCS: 82947; 99212 ==

== ENCOUNTER → 2021-04-27 13:13 | Outpatient (BNVA) | payer MEDICARE, MEDICAID, SELFPAY | PROVIDERS: PCP Internal Medicine Geriatric Medicine; Referring Provider Internal Medicine Geriatric Medicine; Visit Provider Surgery | DX: Z85.3 Personal history of malignant neoplasm of breast (principal) | CPT/HCPCS: 99212 ==

== ENCOUNTER 2021-04-29 08:45 | Outpatient (REF) | payer MEDICARE, MEDICAID, SELFPAY ==
--- NOTE | ~2021-04-29 | US_ITS ---
EXAMINATION: US ABDOMEN COMPLETE CLINICAL INFORMATION: Fatty liver. COMPARISON: CT abdomen and pelvis 03/02/2021. Ultrasound abdomen complete 02/05/2020 and 04/14/2016. TECHNIQUE: Real-time imaging of the abdominal viscera. FINDINGS: PANCREAS: Not well visualized due to bowel gas. ABDOMINAL AORTA: The proximal, mid, and distal segments are normal in caliber. INFERIOR VENA CAVA: Visualized portions are normal. LIVER: Liver echotexture is increased. The contour of the liver is irregular suggestive of cirrhosis. No focal liver lesion or biliary ductal dilatation is seen. GALLBLADDER: Surgically absent. COMMON BILE DUCT: Normal in caliber measuring 0.7 cm in diameter. RIGHT KIDNEY: Normal. No hydronephrosis. No renal calculi or focal parenchymal lesions. The kidney measures 11.0 cm in maximum dimension. LEFT KIDNEY: There is a 3 mm echogenic density in the midpole with twinkle artifact questionable for a small stone. No hydronephrosis or focal parenchymal lesions. The kidney measures 12.2 cm in maximum dimension. 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 The spleen is upper normal in size. The spleen measures 12.6 cm in maximum dimension. FREE FLUID: None. US/US abdomen complete IMPRESSION: Cirrhotic-appearing liver. No focal lesion seen. Question small left renal stone. Limited visualization of the pancreas.
== END 2021-04-29 08:46 | disposition home or self-care (01) ==
LOC: HO.US 08:45
PROVIDERS: PCP Internal Medicine Geriatric Medicine; Visit Provider Internal Medicine Geriatric Medicine
DX: K76.0 Fatty (change of) liver, not elsewhere classified (principal)
CPT/HCPCS: 76700

== ENCOUNTER 2021-05-30 22:26 | Emergency (ER) | payer MEDICARE, MEDICAID, SELFPAY ==
--- NOTE | ~2021-05-30 | XR_ITS ---
EXAMINATION: XR KNEE, RIGHT CLINICAL INFORMATION: Pain COMPARISON: 06/26/2020 TECHNIQUE: AP, lateral, and both oblique views of the right knee. FINDINGS: Bones are osteopenic. Mild tricompartmental osteoarthritis with small marginal osteophytes and mild joint space narrowing.. Small joint effusion. Soft tissues are swollen around the knee. No fracture or malalignment. XR/XR knee RT 3V IMPRESSION: Mild tricompartmental osteoarthritis Small joint effusion No fracture or malalignment.
--- NOTE | 2021-05-30 22:29 | PC.NURSE ---
waiting for japanese interpreter services to triage pt
[2021-05-30 22:39] VITALS: BP 136/54; PULSE 79; RESP 18; TEMP 37.1; O2SAT 100; BMI 34.2
--- NOTE | 2021-05-30 23:34 | ED.GENADULT ---
HPI - General Adult General Chief complaint: General Medical Stated complaint: swollen knee Source: patient Mode of arrival: ambulatory Limitations: language barrier History of Present Illness HPI narrative: 65-year-old female with past medical history of arthritis, breast cancer, cirrhosis, obesity, hypertension, hyperlipidemia, insulin-dependent diabetes presents with 10 days of right knee pain. Does not report any trauma or falls, but states that she has had pain walking, and Tylenol and Motrin are ineffective. She does report swelling to bilateral lower extremities but does not report a decrease in sensation or range of motion. She did not report fevers, chills, chest pain or pressure, palpitations, shortness breath, shortness breath on exertion, pain on inspiration, abdominal pain, abdominal distention, dysuria, hematuria, nausea, vomiting, diarrhea, constipation, or any other concerning symptoms. Onset (ago): day(s) () Location: right and lower extremity Radiation: non-radiation Severity: moderate Severity scale (1-10): 7 Quality: aching Pain Consistency: constant Relieving factors: none Exacerbating factors: movement Associated symptoms: denies other symptoms Treatments prior to arrival: NSAID Related Data Home Medications Medication Instructions Recorded Confirmed acetaminophen 500 mg tablet 1 - 2 tab PO Q8H PRN 08/06/20 04/27/21 aspirin 81 mg tablet,delayed 1 tab PO DAILY 08/06/20 04/27/21 release atorvastatin 20 mg tablet 20 mg PO BEDTIME 08/06/20 04/27/21 benztropine 1 mg tablet 1 mg PO BID 08/06/20 04/27/21 fluphenazine decanoate 25 mg/mL 50 mg IM Q3W 08/06/20 04/27/21 injection solution lisinopril 10 mg tablet 10 mg PO DAILY 08/06/20 04/27/21 meclizine 25 mg tablet 25 mg PO TID PRN 08/06/20 04/27/21 nortriptyline 75 mg capsule 75 mg PO BEDTIME 08/06/20 04/27/21 omeprazole 20 mg capsule,delayed 20 mg PO DAILY 08/06/20 04/27/21 release zolpidem 5 mg tablet (Ambien) 5 mg PO BEDTIME 08/06/20 04/27/21 polyvinyl alcohol 1.4 % eye drops 1 drp OPHTHALMIC (EYE) BID 03/02/21 04/27/21 (Artificial Tears (polyvinyl alcohol)) triamcinolone acetonide 0.1 % 1 appl TOPICAL BID PRN 03/02/21 04/27/21 topical cream alcohol swabs pad TOPICAL QID 04/23/21 04/27/21 Previous Rx's Medication Instructions Recorded letrozole 2.5 mg tablet (Femara) 2.5 mg PO DAILY #90 tab 03/02/21 vancomycin 125 mg capsule 125 mg PO QID 10 Days #40 cap 03/04/21 (Vancocin) Novolog Flexpen U-100 Insulin 100 30 unit SUBCUT TID 30 Days #30 ml 04/23/21 unit/mL (3 mL) subcutaneous NS (insulin aspart U-100) Tresiba FlexTouch U-200 200 140 unit SUBCUT DAILY 30 Days #27 04/23/21 unit/mL (3 mL) subcutaneous pen ml NS (insulin degludec) blood sugar diagnostic (FreeStyle #100 ea 04/23/21 Lite Strips) dexamethasone 1 mg tablet 1 mg PO ONCE 1 Days #1 tab 04/23/21 pen needle, diabetic 32 gauge x #400 ea 04/23/2132 (BD Edilia 2nd Gen Pen Needle) semaglutide 1 mg/dose (2 mg/1.5 1 mg SUBCUT QWEEK 30 Days #3.75 ml 04/23/21 mL) subcutaneous pen injector (Ozempic) Allergies Allergy/AdvReac Type Severity Reaction Status Date / Time metformin [METFORMIN] Allergy Intermediate ELEVATED Verified 05/30/21 22:39 LIVER ENZYMES, liver damage Review of Systems Review of Systems: Constitutional: No Fever, No Chills ENT/Mouth: No Ear Pain, No Hoarseness, No sore throat Eyes: No Eye Pain, No Swelling, No Redness, No Foreign Body Cardiovascular: No Chest Pain, No SOB Respiratory: No Cough, No Dyspnea Gastrointestinal: No Nausea, No Vomiting, No Diarrhea, No abdominal Pain Genitourinary: No Dysuria, No Hematuria Musculoskeletal: positive right knee pain, No Myalgias, No Joint Swelling Skin: No Skin lacerations, No rash Neuro: No Weakness, No Numbness, No Paresthesias, No Loss of Consciousness, No Dizziness, No Headache Psych: No Anxiety/Panic, No Depression Heme/Lymph: no easy bruising, no Lymphadenopathy Endocrine: No Polyuria, No Polydipsia Yes all other systems are reviewed and are negative [facility] Past Medical History Attestation statement: The following information was validated with the patient. Source: old records reviewed Medical History (Updated 05/31/21 @ 01:34 by Megan Zhang NP) Bipolar disorder Colitis Diabetes mellitus Diabetes type 2, uncontrolled Diabetic nephropathy associated with type 2 diabetes mellitus Dyslipidemia Fever of unknown origin Hirsutism History of left breast cancer HTN (hypertension) Hypercalcemia Hyperlipidemia Hypertension Liver cirrhosis alf (current) use of insulin Multinodular goiter (nontoxic) Obesity Urinary incontinence Surgical History History of appendectomy History of tonsillectomy History of tubal ligation Status post laser cataract surgery of both eyes Status post left breast lumpectomy Family History Family History Father History of lung cancer Social History Social History Household Members: None Housing: Apartment Do you presently have visiting nurse or other home services: Yes ([facility] ) Alcohol intake: never Second Hand Smoke Exposure: No Advance Directives: No Advance Directives Information Provided: No service: No Current occupational status: unemployed Physical Exam Vital Signs: Vital Signs: Last Vital Signs Temp 98.8 F 05/30/21 22:39 Pulse 79 05/30/21 22:39 Resp 18 05/31/21 02:42 BP 136/54 L 05/30/21 22:39 Pulse Ox 100 05/31/21 02:42 Body Mass Index 34.2 Appearance: Alert. Oriented X3. No acute distress. Eyes: Pupils equal, round and reactive to light. ENT: Pharynx normal. Neck: Normal inspection. Neck supple. CVS: Normal heart rate and rhythm. Pulses normal. Respiratory: No respiratory distress. Breath sounds normal. Abdomen: Soft and nontender. Skin: Skin warm and dry. Normal skin color. Normal skin turgor. Extremities: No lower extremity edema. Full range of motion to bilateral lower extremities, I do not appreciate any significant swelling or redness to the lower extremities, no warmth to touch. Neuro: No motor deficit. No sensory deficit. Cranial nerves 2-12 intact Course Course Course Narrative: 65-year-old female presents with 10 days of right knee pain. Will order x-rays, I do not appreciate any significant swelling to the right knee or calf. It is highly unlikely that this is a DVT at this time however detailed description with patient regarding need for evaluation by primary care for DVT. Patient appears nontoxic, is afebrile, and has full range of motion to all extremities. X-rays indicate small effusion, will Brandon wrap and refer to orthopedics for chronic arthritis. radiology ct technologist utilized for all correspondence. Google translate utilized for discharge instructions. Medical Decision Making Differential Diagnosis Differential Diagnosis: Effusion, fracture, dislocation, septic joint, DVT, arthritis Medical Records Medical records reviewed: Yes I reviewed the patient's medical records. Imaging Data Right knee x-ray: Attestation: I personally reviewed and interpreted this imaging study as follows: Radiologist's impression: EXAMINATION: XR KNEE, RIGHT? CLINICAL INFORMATION: Pain? COMPARISON: 06/26/2020? TECHNIQUE: AP, lateral, and both oblique views of the right knee. FINDINGS: Bones are osteopenic. Mild tricompartmental osteoarthritis with small marginal osteophytes and mild joint space narrowing.. Small joint effusion. Soft tissues are swollen around the knee. No fracture or malalignment. XR/XR knee RT 3V IMPRESSION: Mild tricompartmental osteoarthritis ? Small joint effusion ? No fracture or malalignment. Discharge Plan Discharge Clinical Impression: Arthritis, Effusion of right knee joint Acute knee pain Qualifiers: Laterality: right Qualified Code(s): M25.561 - Pain in right knee Patient Disposition: Home, Self-Care Instructions: Swollen Knee Joint (ED), Knee Pain (ED), R.I.C.E. Treatment (ED), Arthritis (ED) Additional Instructions: Fue evaluado por dolor en la rodilla derecha. Las radiograf?as indican un derrame en la rodilla derecha, que es makayla terrence?a bolsa de l?quido. Los mendel X tambi?n indican artritis cr?yung. Maxine un seguimiento con ortopedia. Llame y solicite makayla edie el lunes. Contin?e usando Tylenol y Motrin seg?n sea necesario para controlar el dolor. Puede usar la envoltura Brandon para ayudar con la hinchaz?n. Por favor, coloque hielo y lev?ntelo para ayudar a reducir el dolor. Madelaine por elegir aleena departamento de emergencias para alva evaluaci?n. Maxine un seguimiento con alva m?dico de atenci?n primaria seg?n sea necesario. Regrese al departamento de emergencias por cualquier s?ntoma nuevo, preocupante o que empeore. You were evaluated for right knee pain. X-rays indicate a right knee effusion, which is a small pocket of fluid. X-rays also do indicate chronic arthritis. Please follow-up with orthopedics. Please call and request an appointment on Tuesday. Continue to use Tylenol and Motrin as needed for pain management. You may use Brandon wrap to help with swelling. Please ice and elevate to help reduce pain. Thank you for choosing this emergency department for evaluation. Please follow-up with primary care physician as needed. Return to the emergency department for any new, concerning, or worsening symptoms. Prescriptions: No Action polyvinyl alcohol [Artificial Tears (polyvin alc)] 1.4 % drops 1 drp ophthalmic (eye) BID RF: 0 triamcinolone acetonide 0.1 % cream 1 appl topical BID PRN (Reason: Itching) RF: 0 vancomycin [Vancocin] 125 mg capsule 125 mg PO QID 10 Days Qty: 40 RF: 0 nortriptyline 75 mg capsule 75 mg PO BEDTIME RF: 0 zolpidem [Ambien] 5 mg Tablet 5 mg PO BEDTIME RF: 0 atorvastatin 20 mg tablet 20 mg PO BEDTIME RF: 0 aspirin 81 mg tablet,delayed release (DR/EC) 1 tab PO DAILY RF: 0 acetaminophen 500 mg tablet 1 - 2 tab PO Q8H PRN (Reason: pain) RF: 0 fluphenazine decanoate 25 mg/mL solution 50 mg IM Q3W RF: 0 meclizine 25 mg Tablet 25 mg PO TID PRN (Reason: Dizziness) RF: 0 lisinopril 10 mg tablet 10 mg PO DAILY RF: 0 benztropine 1 mg tablet 1 mg PO BID RF: 0 omeprazole 20 mg capsule,delayed release(DR/EC) 20 mg PO DAILY RF: 0 letrozole [Femara] 2.5 mg tablet 2.5 mg PO DAILY Qty: 90 RF: 3 alcohol swabs Pads, Medicated topical QID RF: 0 (DME) FreeStyle Lite Strips Strip See Rx Instructions .MEDSUPPLY Qty: 100 RF: 6 insulin aspart U-100 [Novolog Flexpen U-100 Insulin] 100 unit/mL (3 mL) insulin pen 30 unit subcut TID 30 Days Qty: 30 RF: 6 Tresiba FlexTouch U-200 200 unit/mL (3 mL) insulin pen 140 unit subcut DAILY 30 Days Qty: 27 RF: 6 Ozempic 1 mg/dose (2 mg/1.5 mL) pen injector 1 mg subcut QWEEK 30 Days Qty: 3.75 RF: 6 dexamethasone 1 mg tablet 1 mg PO ONCE 1 Days Qty: 1 RF: 0 (DME) pen needle, diabetic [BD Edilia 2nd Gen Pen Needle] 32 gauge x 5/32 needle See Rx Instructions .MEDSUPPLY Qty: 400 RF: 4 Referrals: Flora Canales PA-C [[facility]] - 2 days (Right knee effusion, arthritis) Interventions: ED Discharge Assessment Last Done: 05/31/21 02:42 Discharge Date/Time: 05/31/21 02:47 Print Language: Greek
[2021-05-31] MEDS: Ketorolac Tromethamine 60 MG/2 ML VIAL IM (00:28)
[2021-05-31 02:42] VITALS: RESP 18; O2SAT 100
== END 2021-05-31 02:47 | disposition home or self-care (01) ==
PROVIDERS: Emergency Provider Emergency Medicine
DX: M17.11 Unilateral primary osteoarthritis, right knee (principal); M25.461 Effusion, right knee; M25.561 Pain in right knee; E11.9 Type 2 diabetes mellitus without complications; I10 Essential (primary) hypertension; E78.5 Hyperlipidemia, unspecified; K74.60 Unspecified cirrhosis of liver; Z79.4 Long term (current) use of insulin; Z85.3 Personal history of malignant neoplasm of breast; Z79.82 Long term (current) use of aspirin; Z79.02 Long term (current) use of antithrombotics/antiplatelets; Z79.899 Other long term (current) drug therapy
CPT/HCPCS: 73562; 96372; 99284; J1885

== ENCOUNTER 2021-06-03 06:11 | Outpatient (REF) | payer MEDICARE, MEDICAID, SELFPAY ==
--- NOTE | ~2021-06-03 | XR_ITS ---
EXAMINATION: XR KNEE, RIGHT CLINICAL INFORMATION: Knee pain. COMPARISON: Right knee 05/31/2021. TECHNIQUE: [place] 1 view of the right knee. FINDINGS: There is periarticular spurring with a small loose body seen along the lateral patellar femoral compartment. No bony erosive changes seen. There is no fracture. There is mild prepatellar soft tissue swelling. XR/XR knee RT 2V IMPRESSION: Mild peripatellar spurring with small loose body along lateral patellofemoral compartment. No fracture seen. There is mild prepatellar soft tissue swelling.
== END 2021-06-03 06:12 | disposition home or self-care (01) ==
LOC: HO.HOSX 06:11
PROVIDERS: Visit Provider Physician Assistant
DX: M17.11 Unilateral primary osteoarthritis, right knee (principal); E11.21 Type 2 diabetes mellitus with diabetic nephropathy
CPT/HCPCS: 20610; 73560; 99212; J1020

== ENCOUNTER 2021-07-20 10:59 | Outpatient (REF) | payer MEDICARE, MEDICAID, SELFPAY ==
[2021-07-20 11:54] LABS: Hematocrit 39.3 % (37-47); Hemoglobin 12.8 g/dl (12.0-16.0); Mean Corpuscular HGB Conc 32.6 g/dl (31.0-35.0); Mean Corpuscular Hemoglobin 26.7 pg (27.0-33.0); Platelet Count 243 X10*3/uL (160-400); Red Blood Count 4.79 X10*6/uL (4.20-5.50); Red Cell Distribution Width 14.4 % (11.0-16.0)
[2021-07-20 12:01] LABS: INTERNATIONAL NORM RATIO 1.1 (0.9-1.1); Prothrombin Time 12.3 SEC (9.9-13.0)
[2021-07-20 12:40] LABS: Alanine Aminotransferase 36 U/L (0-31); Albumin Level 4.4 g/dL (3.5-5.0); Alkaline Phosphatase 156 U/L (39-117); Aspartate Amino Transferase 26 U/L (5-31); Bilirubin Direct 0.3 mg/dL (0.0-0.5); Bilirubin Total 0.6 mg/dL (0.0-1.0); Total Protein 7.2 g/dL (6.5-8.0)
[2021-07-28 01:12] LABS: FIB-ALT 32 U/L (6-29); FIB-Alpha-2-Macroglobulin 335 mg/dL (106-279); FIB-Apolipoprotein A1 168 mg/dL (101-198); FIB-GGT 79 U/L (3-65); FIB-Haptoglobin 187 mg/dL (43-212); FIB-Total Bilirubin 0.5 mg/dL (0.2-1.2); Liver Fibrosis Score 0.47; Liver Fibrosis Stage F1-F2; Nec Inflam Act Grade A0-A1
== END 2021-07-20 11:00 | disposition home or self-care (01) ==
LOC: HO.LAB 10:59
PROVIDERS: PCP Internal Medicine Geriatric Medicine; Visit Provider Internal Medicine Gastroenterology
DX: K74.60 Unspecified cirrhosis of liver (principal)
CPT/HCPCS: 36415; 80076; 81596; 85027; 85610

== ENCOUNTER 2021-07-24 07:08 | Outpatient (REF) | payer MEDICARE, MEDICAID, SELFPAY ==
[2021-07-24 07:58] LABS: Albumin Level 4.5 g/dL (3.5-5.0); Magnesium 1.9 mg/dL (1.6-2.6); Phosphorus 3.5 mg/dL (2.7-4.5)
[2021-07-24 08:07] LABS: Vitamin D 25-OH Total 22.1 ng/mL (>30)
[2021-07-24 08:08] LABS: Calcium 10.6 mg/dL (8.4-10.2)
[2021-07-27 15:36] LABS: Calcium, Ionized 5.8 mg/dL (4.8-5.6)
[2021-07-28 14:01] LABS: Adrenocorticotropic Hormone <5 pg/mL (6-50)
[2021-08-04 07:58] LABS: VITAMIN D (1,25 OH) D3 65; Vit D (1,25-Dihydroxy) Total 65; Vitamin D (1,25 OH) D2 <8
[2021-08-04 07:59] LABS: PTHI 74 (H)
== END 2021-07-24 07:09 | disposition home or self-care (01) ==
LOC: HO.LAB 07:08
PROVIDERS: PCP Internal Medicine Geriatric Medicine; Visit Provider Internal Medicine Endocrinology, Diabetes & Metabolism
DX: Z13.89 Encounter for screening for other disorder (principal)
CPT/HCPCS: 36415; 80299; 82024; 82040; 82306; 82310; 82330; 82533; 82652; 83735; 83970; 84075; 84100

== ENCOUNTER 2021-07-24 07:30 | Day surgery (SDC) | payer MEDICARE, MEDICAID, SELFPAY ==
--- NOTE | 2021-07-23 09:56 | HO.ANESPROP2 ---
Documented by User: Linda Anguiano NP 07/23/21 10:01 HPI - Anesthesia Eval Consult details Narrative: 65yo F for Upper Endoscopy [facility] admit 02/2021 with abdominal pain/N/V - colitis and c diff PMFSH Active Problems Active Problems: All Active Problems (Updated 06/16/21 @ 13:39 by Darcy Malone MD) Primary osteoarthritis of right knee (Acute) History of left breast cancer (Acute) COVID-19 (Acute) Cellulitis (Acute) Severe sepsis (Acute) Fever of unknown origin (Acute) Breast cancer, left breast (Chronic) Fever (Acute) Nausea & vomiting (Acute) Hypercalcemia (Acute) Hirsutism (Acute) Obesity (Acute) Dyslipidemia (Acute) Hypertension (Acute) Multinodular goiter (nontoxic) (Acute) Diabetic nephropathy associated with type 2 diabetes mellitus (Acute) residential (current) use of insulin (Acute) Diabetes type 2, uncontrolled (Acute) Past Medical History Medical History Bipolar disorder Colitis Diabetes mellitus Diabetes type 2, uncontrolled Diabetic nephropathy associated with type 2 diabetes mellitus Dyslipidemia Fever of unknown origin Hirsutism History of left breast cancer HTN (hypertension) Hypercalcemia Hyperlipidemia Hypertension Liver cirrhosis [employer] (current) use of insulin Multinodular goiter (nontoxic) Obesity Urinary incontinence Family History Family History Father History of lung cancer Surgical History Surgical History History of appendectomy History of tonsillectomy History of tubal ligation Hx of cholecystectomy Hx of colonoscopy Hx of removal of ovary Status post laser cataract surgery of both eyes Status post left breast lumpectomy Social History Social History Household Members: None Housing: Apartment Do you presently have visiting nurse or other home services: Yes ([facility] ) Alcohol intake: never Patient Tobacco Use Status: Former Tobacco user Quit Date: >30 YRS AGO Second Hand Smoke Exposure: No Use of substances other than those prescribed or required for medical reasons: No Are you DNR?: No Advance Directives: No Advance Directives Information Provided: Yes service: No Current occupational status: unemployed Current occupation: rt handed Meds Allergies Allergy/AdvReac Type Severity Reaction Status Date / Time metformin [METFORMIN] Allergy Intermediate ELEVATED Verified 07/24/21 08:19 LIVER ENZYMES, liver damage Home Medications Medication Instructions Recorded Confirmed Last Taken Type acetaminophen 500 mg tablet 1 - 2 tab PO Q8H PRN 08/06/20 06/16/21 01/14/21 History aspirin 81 mg tablet,delayed 1 tab PO DAILY 08/06/20 06/16/21 03/02/21 History release atorvastatin 20 mg tablet 20 mg PO BEDTIME 08/06/20 06/16/21 03/01/21 History benztropine 1 mg tablet 1 mg PO BID 08/06/20 06/16/21 03/02/21 History fluphenazine decanoate 25 mg/mL 50 mg IM Q3W 08/06/20 06/16/21 02/10/21 History injection solution lisinopril 10 mg tablet 10 mg PO DAILY 08/06/20 06/16/21 03/02/21 History meclizine 25 mg tablet 25 mg PO TID PRN 08/06/20 06/16/21 03/02/21 History nortriptyline 75 mg capsule 75 mg PO BEDTIME 08/06/20 06/16/21 03/01/21 History omeprazole 20 mg capsule,delayed 20 mg PO DAILY 08/06/20 06/16/21 03/02/21 History release zolpidem 5 mg tablet (Ambien) 5 mg PO BEDTIME 08/06/20 06/16/21 01/13/21 History polyvinyl alcohol 1.4 % eye drops 1 drp OPHTHALMIC (EYE) BID 03/02/21 06/16/21 03/02/21 History (Artificial Tears (polyvinyl alcohol)) triamcinolone acetonide 0.1 % 1 appl TOPICAL BID PRN 03/02/21 06/16/21 03/02/21 History topical cream alcohol swabs 1 pad TOPICAL QID 04/23/21 06/16/21 Unknown History Exam Exam Date and Time: July 23, 2021 0956 Pertinent Lab Results Pertinent Lab Results: Laboratory Tests 03/03/21 07/20/21 05:18 11:11 WBC 8.0 Hgb 12.8 Hct 39.3 Plt Count 243 Sodium 138 Potassium 4.0 Chloride 105 Carbon Dioxide 26 BUN 8 L Creatinine 0.70 Narrative Narrative: EKG 12/2020 Vent. Rate : 093 BPM ? ? Atrial Rate : 093 BPM ?? P-R Int : 162 ms? QRS Dur : 134 ms ? ? QT Int : 388 ms ? ? ? P-R-T Axes : 063 -57 052 degrees ?? QTc Int : 482 ms ? Normal sinus rhythm Left axis deviation Non-specific intra-ventricular conduction block Abnormal ECG When compared with ECG of 14-JAN-2021 22:01, Non-specific intra-ventricular conduction block has replaced Right bundle branch block Assessment and Plan Assessment Anesthesia Assessment: Chart Reviewed Documented by User: Cesilia Chin MD 07/24/21 08:42 PMFSH Past Medical History Medical History Bipolar disorder Colitis Diabetes mellitus Diabetes type 2, uncontrolled Diabetic nephropathy associated with type 2 diabetes mellitus Dyslipidemia Fever of unknown origin Hirsutism History of left breast cancer HTN (hypertension) Hypercalcemia Hyperlipidemia Hypertension Liver cirrhosis [employer] (current) use of insulin Multinodular goiter (nontoxic) Obesity Urinary incontinence Family History Family History Father History of lung cancer Surgical History Surgical History History of appendectomy History of tonsillectomy History of tubal ligation Hx of cholecystectomy Hx of colonoscopy Hx of removal of ovary Status post laser cataract surgery of both eyes Status post left breast lumpectomy History of Problems with Anesthesia: No Social History Social History Household Members: None Housing: Apartment Do you presently have visiting nurse or other home services: Yes ([facility] ) Alcohol intake: never Patient Tobacco Use Status: Former Tobacco user Quit Date: >30 YRS AGO Second Hand Smoke Exposure: No Use of substances other than those prescribed or required for medical reasons: No Are you DNR?: No Advance Directives: No Advance Directives Information Provided: Yes service: No Current occupational status: unemployed Current occupation: rt handed Meds Allergies Allergy/AdvReac Type Severity Reaction Status Date / Time metformin [METFORMIN] Allergy Intermediate ELEVATED Verified 07/24/21 08:19 LIVER ENZYMES, liver damage Home Medications Medication Instructions Recorded Confirmed Last Taken Type acetaminophen 500 mg tablet 1 - 2 tab PO Q8H PRN 08/06/20 06/16/21 01/14/21 History aspirin 81 mg tablet,delayed 1 tab PO DAILY 08/06/20 06/16/21 03/02/21 History release atorvastatin 20 mg tablet 20 mg PO BEDTIME 08/06/20 06/16/21 03/01/21 History benztropine 1 mg tablet 1 mg PO BID 08/06/20 06/16/21 03/02/21 History fluphenazine decanoate 25 mg/mL 50 mg IM Q3W 08/06/20 06/16/21 02/10/21 History injection solution lisinopril 10 mg tablet 10 mg PO DAILY 08/06/20 06/16/21 03/02/21 History meclizine 25 mg tablet 25 mg PO TID PRN 08/06/20 06/16/21 03/02/21 History nortriptyline 75 mg capsule 75 mg PO BEDTIME 08/06/20 06/16/21 03/01/21 History omeprazole 20 mg capsule,delayed 20 mg PO DAILY 08/06/20 06/16/21 03/02/21 History release zolpidem 5 mg tablet (Ambien) 5 mg PO BEDTIME 08/06/20 06/16/21 01/13/21 History polyvinyl alcohol 1.4 % eye drops 1 drp OPHTHALMIC (EYE) BID 03/02/21 06/16/21 03/02/21 History (Artificial Tears (polyvinyl alcohol)) triamcinolone acetonide 0.1 % 1 appl TOPICAL BID PRN 03/02/21 06/16/21 03/02/21 History topical cream alcohol swabs 1 pad TOPICAL QID 04/23/21 06/16/21 Unknown History Exam Airway Mallampati Class: II (Edentulous) TM Dist: >3cm Neck ROM: Limited Loose/Missing/Broken Teeth: Yes, Upper and Lower Heart: RRR Lungs: CTA Assessment and Plan Assessment Anesthesia Assessment: Anesthesia Plan Discussed Final Anesthetic Review History of Problems with Anesthesia: No NPO: Yes ASA Class: III Final Preanesthetic Review: Meds/Allgs Chart Reviewed, Consent Obtained/Reviewed and Anes Risks/Benef Reviewed Patient Risk: Intermediate Procedure Risk: Intermediate Anesthetic Plan Anesthetic Plan: MAC: Disposition: Standard PACU
[2021-07-24] VITALS (7 sets, daily range): BP systolic 85–159; BP diastolic 45–77; PULSE 82–94; RESP 17–20; TEMP 36.6–36.7; O2SAT 96–99; BMI 33.8
[2021-07-24 08:36] LABS: Glucose, Whole Blood 193 mg/dL (60-115)
[2021-07-24] MEDS: Lactated Ringers 1,000 ML 100 ML IVCONT (08:37)
--- NOTE | 2021-07-24 08:54 | MHC.SHP ---
Pre-Procedural Eval Section A Date of Service: 07/24/21 The patient is an INPATIENT: No Changes since office visit: No Cold of Flu in the past 2 weeks, No New Medical Problems, No Changes in Medication and No Patient answered all questions The History & Physical has been completed within 30 days and I have reviewed it.: Yes Section B Chief Complaint: cirrhosis of liver Allergies: Allergies Allergy/AdvReac Type Severity Reaction Status Date / Time metformin [METFORMIN] Allergy Intermediate ELEVATED Verified 07/24/21 08:19 LIVER ENZYMES, liver damage Plan I have reviewed the history and physical and performed a pertinent physical examination on my patient. No changes have occurred unless specified.
--- NOTE | 2021-07-24 09:11 | P.BOP_ITS ---
Brief Operative Note Date of Service: 07/24/21 Pre-op diagnosis: cirrhosis Post-op diagnosis: same (gastric polyps) Procedure: egd Surgeon: Mychal Almanzar Anesthesia: MAC Was an Hard Candy Spinner used for this Procedure?: No Estimated blood loss (mL): 5 Condition: stable Disposition: PACU
--- NOTE | 2021-07-24 09:48 | OP_ITS ---
SURGEON: Mychal Almanzar MD INDICATIONS: Cirrhosis. PREOPERATIVE DIAGNOSIS: POSTOPERATIVE DIAGNOSIS: PROCEDURE PERFORMED: Upper endoscopy with biopsy. ESTIMATED BLOOD LOSS: COMPLICATIONS: ANESTHESIA: ASSISTANTS: SPECIMENS: MEDICATIONS: Monitored anesthesia care. DESCRIPTION OF PROCEDURE: History and physical performed. The risks and benefits of the procedure were explained to the patient. Informed consent was obtained. The patient was placed in the left lateral decubitus position. The Olympus video gastroscope was introduced into the esophagus, stomach, and duodenum. Examination was performed and the scope was removed. She tolerated the procedure well and was taken to recovery area in stable condition. FINDINGS: Esophagus: The esophagus was normal. No varices were present. Biopsies were obtained from the EG junction. Stomach: The stomach was normal. There was a 12 mm polyp on the anterior wall near the greater curvature up in the fundus that was biopsied. The second polyp in the antrum on the posterior wall measuring approximately 8 mm was biopsied as well. Antral biopsies were also obtained to rule out H pylori. There was no evidence of portal hypertensive gastropathy. Duodenum: The bulb and second portion were normal. IMPRESSION: Gastric polyps. RECOMMENDATION: Follow up the biopsy results. MD MICHEAL Valente/WARREN / [id number]
--- NOTE | 2021-07-24 09:56 | PC.NURSE ---
patient found on floor while getting dressed. stated she hit her head but has no pain. vital signs are stable Dr. Almanzar and Dr. Brown aware. will monitor for 1 hour before sending home. family notified.
--- NOTE | 2021-07-24 10:18 | PC.NURSE ---
patient sitting upright in stretcher drinking coffee and eating a muffin. Patient denies pain carver hand grasp equal strong montelongo.
--- NOTE | 2021-07-24 10:31 | PC.NURSE ---
Dr. Brown at bedside stated its ok to send home.
== END 2021-07-24 10:49 | disposition home or self-care (01) ==
PROVIDERS: PCP Internal Medicine Geriatric Medicine; Visit Provider Internal Medicine Gastroenterology
PROC: 0DJ08ZZ Inspection of Upper Intestinal Tract, Via Natural or Artificial Opening Endoscopic (ICD-10-PCS; CPT 43235; principal; 2021-07-24 09:30)
DX: K74.60 Unspecified cirrhosis of liver (principal); K31.7 Polyp of stomach and duodenum; K20.90 Esophagitis, unspecified without bleeding; I10 Essential (primary) hypertension; E11.9 Type 2 diabetes mellitus without complications; E78.00 Pure hypercholesterolemia, unspecified; Z79.4 Long term (current) use of insulin; Z79.899 Other long term (current) drug therapy; Z90.49 Acquired absence of other specified parts of digestive tract
CPT/HCPCS: 43239; 36415; 80299; 82024; 82040; 82306; 82310; 82330; 82533; 82652; 82947; 83735; 83970; 84075; 84100; 88305; 88342; J3010

== ENCOUNTER 2021-09-23 18:31 | Emergency (ER) | payer MEDICARE, MEDICAID, SELFPAY ==
--- NOTE | ~2021-09-23 | CT_ITS ---
EXAMINATION: CT ABDOMEN AND PELVIS WITH CONTRAST CLINICAL INFORMATION: Left lower quadrant pain COMPARISON: CT abdomen pelvis 03/02/2021, ultrasound abdomen 04/29/2021 TECHNIQUE: Multidetector volumetric images were obtained from the superior aspect of the liver through the pubic symphysis following administration 85 mL of Omnipaque 350 intravenous contrast. Sagittal and coronal reformatted images were obtained on the technologist's workstation. Oral contrast: No This CT examination was performed using dose optimization techniques as appropriate, variously including the following: *Automated exposure control *Adjustment of mA and/or kV according to patient size (this includes techniques or standardized protocols for targeted exams where dose is matched to indication/reason for exam; i.e. extremities or head) *Use of iterative reconstruction technique DLP: 688 mGy-cm FINDINGS: LUNG BASES: Some dependent groundglass changes are present. Significant skin thickening is present in the left breast, similar to prior . LIVER, GALLBLADDER, AND BILIARY TREE: Again seen is a lobular contour of the liver consistent with cirrhosis. No focal liver mass or bile duct dilatation is seen. Status post cholecystectomy PANCREAS: Unremarkable. SPLEEN: Spleen is mildly dilated at 12.3 cm. ADRENAL GLANDS: Unremarkable. KIDNEYS AND URETERS: The kidneys are normal in size, shape, and attenuation. There is a tiny 4 mm probable cyst in the mid left kidney indeterminate because of its small size (503: 330), unchanged. No hydronephrosis, hydroureter, or calculi seen. Left renal calculus seen previously is not identified on the current study. No perinephric stranding. BLADDER: Unremarkable. GASTROINTESTINAL TRACT: Diverticular changes are present in the colon. At the junction of the descending colon and in sigmoid, there are some inflammatory changes present around the pericolonic fat. Similar changes were present previously but possibly slightly greater on today's study. Above this level, the descending colon is collapsed as is the distal transverse colon. The right colon appears unremarkable. The appendix is not seen. There is no dilatation of small bowel ABDOMINAL WALL: No significant hernia is appreciated. LYMPH NODES: No retroperitoneal lymphadenopathy. VASCULAR: Prominent perisplenic varices are present. PELVIC VISCERA: A retroverted uterus is present with multiple calcifications suggestive of fibroids. An abnormal adnexal mass or free intraperitoneal fluid is not seen. OSSEOUS STRUCTURES: Unremarkable. CT/CT abdomen pelvis w con IMPRESSION: 1. Extensive sigmoid diverticulosis with one area at the junction of the descending colon and sigmoid with some surrounding inflammatory change consistent with subtle diverticulitis. Similar findings, were present at the time of the prior study. 2. Cirrhotic liver with mild splenomegaly and varices suggestive of portal hypertension 3. Previously seen punctate left renal stone is not appreciated on the current study. 4. Calcified uterine fibroids. Fleischner guidelines were followed.
[2021-09-23 18:36] VITALS: BP 128/63; PULSE 95; RESP 18; TEMP 36.6; O2SAT 99; BMI 34.2
[2021-09-23 20:39] VITALS: BP 133/57; PULSE 85; RESP 16; TEMP 37.3; O2SAT 99
--- NOTE | 2021-09-23 20:56 | ED_ITS ---
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 She denies any urinary pain/burning/frequency, shortness of breath or chest pain/palpitations. Related Data Home Medications Medication Instructions Recorded Confirmed acetaminophen 500 mg tablet 1 - 2 tab PO Q8H PRN 08/06/20 06/16/21 aspirin 81 mg tablet,delayed 1 tab PO DAILY 08/06/20 06/16/21 release atorvastatin 20 mg tablet 20 mg PO BEDTIME 08/06/20 06/16/21 benztropine 1 mg tablet 1 mg PO BID 08/06/20 06/16/21 fluphenazine decanoate 25 mg/mL 50 mg IM Q3W 08/06/20 06/16/21 injection solution lisinopril 10 mg tablet 10 mg PO DAILY 08/06/20 06/16/21 meclizine 25 mg tablet 25 mg PO TID PRN 08/06/20 06/16/21 nortriptyline 75 mg capsule 75 mg PO BEDTIME 08/06/20 06/16/21 omeprazole 20 mg capsule,delayed 20 mg PO DAILY 08/06/20 06/16/21 release zolpidem 5 mg tablet (Ambien) 5 mg PO BEDTIME 08/06/20 06/16/21 polyvinyl alcohol 1.4 % eye drops 1 drp OPHTHALMIC (EYE) BID 03/02/21 06/16/21 (Artificial Tears (polyvinyl alcohol)) triamcinolone acetonide 0.1 % 1 appl TOPICAL BID PRN 03/02/21 06/16/21 topical cream alcohol swabs 1 pad TOPICAL QID 04/23/21 06/16/21 Previous Rx's Medication Instructions Recorded letrozole 2.5 mg tablet (Femara) 2.5 mg PO DAILY #90 tab 03/02/21 Novolog Flexpen U-100 Insulin 100 30 unit (0.3 mL) SUBCUT TID 30 06/24/21 unit/mL (3 mL) subcutaneous Days #30 ml NS (insulin aspart U-100) Tresiba FlexTouch U-200 200 140 unit (0.7 mL) SUBCUT DAILY 30 04/23/21 unit/mL (3 mL) subcutaneous pen Days #27 ml NS (insulin degludec) blood sugar diagnostic (FreeStyle #100 ea 04/23/21 Lite Strips) dexamethasone 1 mg tablet 1 mg PO ONCE 1 Days #1 tab 04/23/21 pen needle, diabetic 32 gauge x #400 ea 04/23/21 (BD Edilia 2nd Gen Pen Needle) semaglutide 1 mg/dose (2 mg/1.5 1 mg (0.75 mL) SUBCUT QWEEK 30 04/23/21 mL) subcutaneous pen injector Days #3.75 ml (Ozempic) ibuprofen 800 mg tablet 800 mg PO Q8H PRN 30 Days #90 tab 07/08/21 meloxicam 7.5 mg tablet 7.5 mg PO DAILY 30 Days #30 tab 07/10/21 amoxicillin 875 mg-potassium 1 tab PO Q12H 10 Days #20 tab 09/24/21 clavulanate 125 mg tablet (Augmentin) Allergies Allergy/AdvReac Type Severity Reaction Status Date / Time metformin [METFORMIN] Allergy Intermediate ELEVATED Verified 07/24/21 08:19 LIVER ENZYMES, liver damage Review of Systems Review of Systems Pertinent positives and negatives as stated in HPI 10 point review of systems otherwise negative. Physical Exam 2 Vital Signs: Vital Signs: Last Vital Signs Temp 99.0 F 09/23/21 21:23 Pulse 87 09/23/21 21:23 Resp 17 09/23/21 21:23 BP 126/63 09/23/21 21:23 Pulse Ox 98 09/23/21 21:23 Body Mass Index 34.2 VITAL SIGNS: Reviewed. GENERAL: Well developed, well nourished, in no acute distress. HEAD: Normocephalic/atraumatic EYES: PERRLA, EOMI OROPHARYNX: no oral lesions noted, posterior pharynx clear NECK: Supple, no adenopathy LUNGS: Normal breath sounds. No adventitious sounds or accessory muscle use. SpO2<99> CARDIOVASCULAR: Regular rate and rhythm without noted murmurs, no JVD or lower extremity edema. ABDOMEN: Soft, tenderness on palpation at left lower quadrant without rebound, non-distended with bowel sounds. SKIN: Inspection of the skin reveals no rashes but has vitiligo NEUROLOGIC: Alert and oriented x 4. Course Course Course Narrative: 66-year-old female with history and clinical presentation suggestive of possible diverticulitis and less likely thought to be UTI or renal colic. Review of all investigations consistent with diverticulitis, mild, and will be treated with initial antibiotics here in the emergency room and then discharged with remaining course. MDM - Abdominal Pain Lab Data Result diagrams: 09/23/21 21:03 09/23/21 20:58 Labs: Lab Results 09/23/21 09/23/21 09/23/21 Range/Units 20:58 21:03 21:26 WBC 9.2 (4.8-10.8) X10*3/uL RBC 4.81 (4.20-5.50) X10*6/uL Hgb 12.9 (12.0-16.0) g/dl Hct 39.5 (37.0-47.0) % MCV 82.1 (80.0-98.0) fL MCH 26.8 L (27.0-33.0) pg MCHC 32.7 (31.0-35.0) g/dl RDW 13.8 (11.0-16.0) % Plt Count 218 (160-400) X10*3/uL MPV 10.2 (9.4-12.3) fL Immature Gran % (Auto) 0.2 (0.0-0.4) % Neut % (Auto) 69.3 (45-73) % Lymph % (Auto) 20.9 (20-40) % [place] % (Auto) 7.6 (2-11) % Eos % (Auto) 1.3 (0-4) % Baso % (Auto) 0.7 (0-2) % Lymph # (Auto) 1.9 (1.2-4.9) X10*3/uL [place] # (Auto) 0.7 (0.1-1.2) X10*3/uL Eos # (Auto) 0.1 (0.0-0.4) X10*3/uL Baso # (Auto) 0.1 (0.0-0.2) X10*3/uL Abs Immat Gran (auto) 0.02 (0.00-0.03) X10*3/uL Absolute Neuts (auto) 6.4 (2.0-8.3) x10*3/uL Absolute Nucleated RBC 0.000 (0.0-0.012) X10*3/uL Nucleated RBC % (auto) 0.0 (0.0-0.2) /100WBC Sodium 137 (135-145) mmol/L Potassium 4.5 (3.3-5.1) mmol/L Chloride 107 (96-108) mmol/L Carbon Dioxide 22 (22-29) mmol/L Anion Gap 13 (12-20) BUN 14 D (9-16) mg/dL Creatinine 0.73 (0.5-1.4) mg/dL Estim Creat Clear Calc 75.5 Estimated GFR > 60 Random Glucose 168 H (60-115) mg/dL Calcium 9.7 D (8.4-10.2) mg/dL Total Bilirubin 0.6 (0.0-1.0) mg/dL Direct Bilirubin 0.2 (0.0-0.5) mg/dL AST 31 (5-31) U/L ALT 39 H (0-31) U/L Alkaline Phosphatase 158 H (39-117) U/L Total Protein 6.9 (6.5-8.0) g/dL Albumin 3.9 (3.5-5.0) g/dL Lipase 12 (8-78) U/L Urine Color YELLOW Urine Appearance HAZY Urine pH 6.0 (5.0-8.0) Ur Specific [place] 1.015 (1.005-1.025) Urine Protein NEG (NEG-TRACE) MG/DL Urine Glucose (UA) NEG (NEG) MG/DL Urine Ketones NEG (NEG) MG/DL Urine Blood NEG (NEG) Urine Nitrite NEG (NEG) Ur Leukocyte Esterase 3+ H (NEG) Urine RBC 0-2 (0) /HPF Urine WBC 15-29 H (0-4) /HPF Urine WBC Clumps NOTED Ur Squamous Epith Cells 1+ /LPF Urine Bacteria NONE /LPF Urine Mucus TRACE /LPF Discharge Plan Discharge Clinical Impression: Diverticulitis Patient Disposition: Home, Self-Care Instructions: Diverticulitis (ED), Diverticulitis Diet (ED) Additional Instructions: 1. Tylenol 1000 mg, por v?a oral, cada 6 horas seg?n sea necesario para controlar el dolor. No exceda los 4000 mg en 24 horas. 2. Complete todo el ciclo de antibi?ticos. 3. Realice un seguimiento con alva proveedor de atenci?n primaria en 2-3 d?as para makayla reevaluaci?n y un tratamiento ambulatorio adicional, esto debe incluir makayla derivaci?n a gastroenterolog?a para makayla evaluaci?n adicional con colonoscopia. Regrese a la elenita de emergencias por un empeoramiento sandra de los s?ntomas. Prescriptions: New amoxicillin-pot clavulanate [Augmentin] 875-125 mg tablet 1 tab PO Q12H 10 Days Qty: 20 RF: 0 No Action ibuprofen 800 mg tablet 800 mg PO Q8H PRN (Reason: pain) 30 Days Qty: 90 RF: 3 meloxicam 7.5 mg tablet 7.5 mg PO DAILY 30 Days Qty: 30 RF: 3 polyvinyl alcohol [Artificial Tears (polyvin alc)] 1.4 % drops 1 drp ophthalmic (eye) BID RF: 0 triamcinolone acetonide 0.1 % cream 1 appl topical BID PRN (Reason: Itching) RF: 0 nortriptyline 75 mg capsule 75 mg PO BEDTIME RF: 0 zolpidem [Ambien] 5 mg Tablet 5 mg PO BEDTIME RF: 0 atorvastatin 20 mg tablet 20 mg PO BEDTIME RF: 0 aspirin 81 mg tablet,delayed release (DR/EC) 1 tab PO DAILY RF: 0 acetaminophen 500 mg tablet 1 - 2 tab PO Q8H PRN (Reason: pain) RF: 0 fluphenazine decanoate 25 mg/mL solution 50 mg IM Q3W RF: 0 meclizine 25 mg Tablet 25 mg PO TID PRN (Reason: Dizziness) RF: 0 lisinopril 10 mg tablet 10 mg PO DAILY RF: 0 benztropine 1 mg tablet 1 mg PO BID RF: 0 omeprazole 20 mg capsule,delayed release(DR/EC) 20 mg PO DAILY RF: 0 letrozole [Femara] 2.5 mg tablet 2.5 mg PO DAILY Qty: 90 RF: 3 alcohol swabs Pads, Medicated 1 pad topical QID RF: 0 (DME) FreeStyle Lite Strips Strip See Rx Instructions .MEDSUPPLY Qty: 100 RF: 6 insulin aspart U-100 [Novolog Flexpen U-100 Insulin] 100 unit/mL (3 mL) insulin pen 30 unit subcut TID 30 Days Qty: 30 RF: 6 Tresiba FlexTouch U-200 200 unit/mL (3 mL) insulin pen 140 unit subcut DAILY 30 Days Qty: 27 RF: 6 Ozempic 1 mg/dose (2 mg/1.5 mL) pen injector 1 mg subcut QWEEK 30 Days Qty: 3.75 RF: 6 dexamethasone 1 mg tablet 1 mg PO ONCE 1 Days Qty: 1 RF: 0 (DME) pen needle, diabetic [BD Edilia 2nd Gen Pen Needle] 32 gauge x 5/32 needle See Rx Instructions .MEDSUPPLY Qty: 400 RF: 4 Referrals: Name,MD Gopi [Primary Care Provider] - 2 days Print Language: Vincentian [facility] Past Medical History Source: nursing notes reviewed Medical History Bipolar disorder Colitis Diabetes mellitus Diabetes type 2, uncontrolled Diabetic nephropathy associated with type 2 diabetes mellitus Dyslipidemia Fever of unknown origin Hirsutism History of left breast cancer HTN (hypertension) Hypercalcemia Hyperlipidemia Hypertension Liver cirrhosis 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 Multinodular goiter (nontoxic) Obesity Urinary incontinence Surgical History History of appendectomy History of tonsillectomy History of tubal ligation Hx of cholecystectomy Hx of colonoscopy Hx of removal of ovary Status post laser cataract surgery of both eyes Status post left breast lumpectomy Family History Family History Father History of lung cancer Social History Social History Household Members: None Housing: Apartment Do you presently have visiting nurse or other home services: Yes (Epic ) Alcohol intake: never Patient Tobacco Use Status: Former Tobacco user Quit Date: >30 YRS AGO Second Hand Smoke Exposure: No Advance Directives: No Advance Directives Information Provided: Yes service: No Current occupational status: unemployed Current occupation: rt handed
[2021-09-23 21:07] LABS: MANUAL DIFF FLAG NO
[2021-09-23 21:08] LABS: Basophils Absolute Auto 0.1 X10*3/uL (0.0-0.2); Basophils Percent Auto 0.7 % (0-2); Eosinophils Absolute Auto 0.1 X10*3/uL (0.0-0.4); Eosinophils Percent Auto 1.3 % (0-4); Hematocrit 39.5 % (37.0-47.0); Hemoglobin 12.9 g/dl (12.0-16.0); Imm Gran Abs Auto 0.02 X10*3/uL (0.00-0.03); Imm Gran Pct Auto 0.2 % (0.0-0.4); Lymphocytes Absolute Auto 1.9 X10*3/uL (1.2-4.9); Lymphocytes Percent Auto 20.9 % (20-40); Mean Corpuscular HGB Conc 32.7 g/dl (31.0-35.0); Mean Corpuscular Hemoglobin 26.8 pg (27.0-33.0); Mean Corpuscular Volume 82.1 fL (80.0-98.0); Mean Platelet Volume 10.2 fL (9.4-12.3); Monocytes Absolute Auto 0.7 X10*3/uL (0.1-1.2); Monocytes Percent Auto 7.6 % (2-11); Neutrophils Absolute Auto 6.4 x10*3/uL (2.0-8.3); Neutrophils Percent Auto 69.3 % (45-73); Platelet Count 218 X10*3/uL (160-400); Red Blood Count 4.81 X10*6/uL (4.20-5.50); Red Cell Distribution Width 13.8 % (11.0-16.0); White Blood Count 9.2 X10*3/uL (4.8-10.8)
[2021-09-23 21:23] VITALS: BP 126/63; PULSE 87; RESP 17; TEMP 37.2; O2SAT 98
[2021-09-23 21:23] LABS: Alanine Aminotransferase 39 U/L (0-31); Albumin Level 3.9 g/dL (3.5-5.0); Alkaline Phosphatase 158 U/L (39-117); Anion Gap 13 (12-20); Aspartate Amino Transferase 31 U/L (5-31); Bilirubin Direct 0.2 mg/dL (0.0-0.5); Bilirubin Total 0.6 mg/dL (0.0-1.0); Blood Urea Nitrogen 14 mg/dL (9-16); Calcium 9.7 mg/dL (8.4-10.2); Carbon Dioxide 22 mmol/L (22-29); Chloride 107 mmol/L (96-108); Creatinine Clr Calc Pharmacy 75.5; Estimated Glomerular Filt Rate > 60; Glucose Random 168 mg/dL (60-115); Lipase 12 U/L (8-78); Potassium 4.5 mmol/L (3.3-5.1); Sodium 137 mmol/L (135-145); Total Protein 6.9 g/dL (6.5-8.0)
[2021-09-23 21:38] LABS: Appearance Urine HAZY; Color Urine YELLOW; Glucose Urine UA NEG (NEG); Leukocyte Esterase Urine 3+ (NEG); Nitrite Urine NEG (NEG); Specific Gravity - Urine 1.015 (1.005-1.025); UACC Culture Trigger YES; Urine Blood NEG (NEG); Urine Ketones NEG (NEG); Urine Protein NEG (NEG-TRACE)
[2021-09-23 22:12] LABS: Mucus Urine TRACE /LPF; RBC Urine 0-2 /HPF (0); Squamous Epithelial Cell Urine 1+ /LPF; UACC CULT YES; WBC Clumps Urine NOTED
[2021-09-23] MEDS: iohexoL 350 MG/ML 100 ML INFUS..BTL IV (22:48)
[2021-09-24] MEDS: Amoxicillin/Potassium Clav 875 MG TABLET PO (00:23)
== END 2021-09-24 00:47 | disposition home or self-care (01) ==
PROVIDERS: Emergency Provider Student in an Organized Health Care Education/Training Program; PCP Internal Medicine Geriatric Medicine
DX: K57.32 Diverticulitis of large intestine without perforation or abscess without bleeding (principal); R10.9 Unspecified abdominal pain; Z79.899 Other long term (current) drug therapy
CPT/HCPCS: 36415; 74177; 80048; 80076; 81001; 83690; 85025; 87086; 99283; 99284; Q9967

== ENCOUNTER → 2021-12-24 09:48 | Outpatient (BNVA) | payer MEDICARE, MEDICAID, SELFPAY | PROVIDERS: PCP Internal Medicine Geriatric Medicine; Visit Provider Internal Medicine Endocrinology, Diabetes & Metabolism | DX: E11.65 Type 2 diabetes mellitus with hyperglycemia (principal); E04.2 Nontoxic multinodular goiter | CPT/HCPCS: 82947; 83036; 99212 ==

== ENCOUNTER → 2022-01-12 09:42 | Outpatient (BNVA) | payer MEDICARE, MEDICAID, SELFPAY | PROVIDERS: PCP Internal Medicine Geriatric Medicine; Visit Provider Registered Nurse Diabetes Educator | DX: E11.65 Type 2 diabetes mellitus with hyperglycemia (principal); Z71.89 Other specified counseling; Z71.3 Dietary counseling and surveillance | CPT/HCPCS: 99211 ==

== ENCOUNTER 2022-01-21 12:43 | Outpatient (REF) | payer MEDICARE, MEDICAID, SELFPAY ==
--- NOTE | ~2022-01-21 | US_ITS ---
EXAMINATION: US DIAGNOSTIC ULTRASOUND BREAST, RIGHT CLINICAL INFORMATION: Density seen on mediolateral oblique image of the right breast.. COMPARISON: Mammography of same day and studies dating back to December 07, 2016. TECHNIQUE: Ultrasound of the breast is performed with real-time moser scale imaging and color Doppler. FINDINGS: Ultrasound examination of the right breast superiorly was performed. There is a somewhat heterogeneous appearance of the breast parenchyma with a few questioned masses appreciated with numerous similar-appearing regions within the breast. Many appear to blend into normal parenchyma. There are multiple regions of sound shadowing related to edge artifact. I cannot definitely tell which area may correspond to the mammographic finding. For this reason I recommend attempt at stereotactic core biopsy of the right breast lesion from a medial lateral or lateral medial approach. Results are discussed with the patient at time of visit. Breast Center patient navigator called above recommendation to referring provider's office. US/US breast RT limited IMPRESSION: Stable appearance of the left breast status post lumpectomy and radiation therapy. Right breast density for which stereotactic core biopsy is recommended. ASSESSMENT: BI-RADS 4: Suspicious RECOMMENDATION: Stereotactic core biopsy right breast lesion.
--- NOTE | ~2022-01-21 | MM_ITS ---
EXAMINATION: MM DIAGNOSTIC DIGITAL BREAST TOMOSYNTHESIS, BILATERAL US BREAST. RIGHT CLINICAL INFORMATION: History of invasive lobular cancer within the left breast with previous lumpectomy performed on 02/21/2019. This is a yearly examination. COMPARISON: Mammography 01/20/2021 and studies dating back to 09/03/2014. TECHNIQUE: Digital breast tomosynthesis is performed in both the craniocaudal and mediolateral oblique views along with computer-aided detection (CAD). Synthesized 2D images are generated from the tomosynthesis. Additional right breast spot compression view in 90 degree mediolateral projection performed as well as right spot craniocaudal view. Spot magnification views of the left breast were performed in 90 degree mediolateral and craniocaudal projections. FINDINGS: MAMMOGRAPHY: There are scattered areas of fibroglandular density (ACR BI-RADS breast composition Category b). There is a stable postoperative appearance of the left breast with no new more suspicious grouping of microcalcifications identified and no new abnormal dominant mass. Skin thickening is present consistent with previous radiation therapy. Within the anterior superior aspect of the right breast there is what appears to be an enlarging 1.1 x 1.0 cm irregularly marginated density lying approximately 5 cm from the nipple. No associated microcalcifications are identified. TARGETED RIGHT BREAST ULTRASOUND: Ultrasound examination of the right breast superiorly was performed. There is a somewhat heterogeneous appearance of the breast parenchyma with a few questioned masses or regions of sound shadowing appreciated but with numerous similar-appearing regions within the breast. I cannot definitely tell which area may correspond to the mammographic finding. For this reason I recommend attempt at stereotactic core biopsy of the right breast lesion from a medial lateral or lateral medial approach. Results are discussed with the patient at time of visit. Breast Center patient navigator called above recommendation to referring provider's office. MM/MM tomosynthesis diagnostic BI IMPRESSION: Stable appearance of the left breast status post lumpectomy and radiation therapy. Right breast density for which stereotactic core biopsy is recommended. ASSESSMENT: BI-RADS 4: Suspicious RECOMMENDATION: Stereotactic core biopsy right breast lesion.
--- NOTE | ~2022-01-21 | US_ITS ---
EXAMINATION: US THYROID CLINICAL INFORMATION: Nontoxic multinodular goiter. COMPARISON: Ultrasound soft tissue head/neck thyroid dated 09/09/2020 and 04/03/2019. TECHNIQUE: Linear transducer grayscale and color Doppler examination with attention to the region of the thyroid. FINDINGS: SIZE: Measurements of the thyroid lobes and nodules are given in sagittal, anteroposterior and transverse dimensions respectively. Right Thyroid Lobe: 3.5 x 1.9 x 1.6 cm, volume 5.5 mL. Previously 3.3 x 1.9 x 1.7 cm, volume 5.6 mL. Parenchyma: The gland echotexture is homogeneous. Thyroid vascularity is normal. Left Thyroid Lobe: 3.2 x 1.7 x 1.6 cm, volume 4.6 mL. Previously 3.3 x 1.6 x 1.8 cm, volume 4.9 mL. Parenchyma: The gland echotexture is homogeneous. Thyroid vascularity is normal. Isthmus: 0.7 cm in maximum AP dimension. Previously 0.6 cm. Estimated total number of nodules greater than or equal to 1 cm: 1. Master Control Supervisor nodules are described as follows: 1. Location: Right mid. Size: 1.8 x 1.6 x 1.5 cm, volume 2.2 mL. Previously: 1.7 x 1.6 x 1.4 cm, volume 2.0 mL. Nodule characteristics: Composition: Solid/almost completely solid (2). Echogenicity: Hyperechoic (1). Shape: Taller than wide (3). Margins: Smooth (0). Echogenic Foci: None (0). ACR TI-RADS total points: 6 ACR TI-RADS category: 4 Significant change in size (>/= 20% in 2 dimensions and minimal increase of 2 mm or 50% or greater increase in volume): No change Change in features: No change Change in ACR TI-RADS risk category: Not applicable 2. Location: Left superior. Size: 0.3 x 0.2 x 0.3 cm, volume 0.01 mL. Previously: 0.3 x 0.2 x 0.3 cm, volume 0.01 mL. Nodule characteristics: Composition: Solid (2). Echogenicity: Very hypoechoic (3). Shape: Not taller than wide (0). Margins: Ill-defined (0). Echogenic Foci: None (0). ACR TI-RADS total points: 5 ACR TI-RADS category: 4 Significant change in size (>/= 20% in 2 dimensions and minimal increase of 2 mm or 50% or greater increase in volume): No change. Change in features: No change. Change in ACR TI-RADS risk category: Not applicable 3. Location: Left mid. Size: 0.5 x 0.5 x 0.5 cm, volume 0.07 mL. Previously: 0.5 x 0.4 x 0.4 cm, volume 0.04 mL. Nodule characteristics: Composition: Solid (2). Echogenicity: Hypoechoic (2). Shape: Not taller than wide (0). Margins: Ill-defined (0). Echogenic Foci: None (0). ACR TI-RADS total points: 4 ACR TI-RADS category: 4 Significant change in size (>/= 20% in 2 dimensions and minimal increase of 2 mm or 50% or greater increase in volume): No change Change in features: No change Change in ACR TI-RADS risk category: Not applicable NODES: No lymphadenopathy is seen in the tissue surrounding the thyroid gland. US/US thyroid IMPRESSION: Solid hypoechoic lesions in the midpole right lobe is suspicious. The upper pole nodule left lobe is subcentimeter and solid. Recommend short-term 6-t12 month follow-up. ACR TI-RADS RECOMMENDATION REFERENCE: Ultrasound-guided fine-needle aspiration, followup ultrasound, no further follow up. * TR1 (0 point) and TR 2 (2 points): No FNA or follow up * TR3 (3 points): FNA if more than or equal to 2.5 cm in maximum dimension, followup ultrasound in 1, 3 and 5 years if 1.5 to 2.4 cm in maximum dimension. * TR4 (4-6 points): FNA if more than or equal to 1.5 cm in maximum dimension, followup ultrasound in 1, 2, 3 and 5 years if 1 to 1.4 cm in maximum dimension. * TR5 (more than or equal to 7 points): FNA if more than or equal to 1 cm in maximum dimension, followup ultrasound every year for 5 years if 0.5 to 0.9 cm in maximum dimension. * TR3, TR4 or TR5 nodules that are below the size threshold for follow up receive no follow up.
[2022-01-21 15:52] LABS: Cholesterol 153 mg/dL; HDL Cholesterol 60 mg/dL; LDL Cholesterol Calculated 70 mg/dl; Triglycerides 118 mg/dL
[2022-01-21 16:07] LABS: Microalbumin Urine < 5.0 mg/L
[2022-01-21 16:08] LABS: Free T4 (Free Thyroxine) 0.83 ng/dL (0.71-1.85); Thyroid Stimulating Hormone 6.18 uIU/mL (0.32-4.0)
== END 2022-01-21 12:44 | disposition home or self-care (01) ==
LOC: HO.MAMMO 12:43
PROVIDERS: Absent Provider Internal Medicine Endocrinology, Diabetes & Metabolism; PCP Internal Medicine Geriatric Medicine; Visit Provider Surgery
DX: E04.2 Nontoxic multinodular goiter (principal); E11.65 Type 2 diabetes mellitus with hyperglycemia; R92.2 Inconclusive mammogram; Z85.3 Personal history of malignant neoplasm of breast
CPT/HCPCS: 36415; 76536; 76642; 77062; 77066; 80061; 82043; 84439; 84443

== ENCOUNTER 2022-01-26 08:07 | Outpatient (REF) | payer MEDICARE, MEDICAID, SELFPAY ==
--- NOTE | ~2022-01-26 | MM_ITS ---
EXAMINATION: STEREOTACTIC TOMOSYNTHESIS-GUIDED VACUUM-ASSISTED BREAST BIOPSY, RIGHT SPECIMEN RADIOGRAPH, RIGHT POST PROCEDURE DIGITAL BREAST TOMOSYNTHESIS, RIGHT CLINICAL INFORMATION: Question asymmetric density central upper breast on MLO view for tissue sampling. Prior history contralateral invasive lobular cancer left breast status post lumpectomy 02/26/2019. COMPARISON: Mammography 02/21/2022, 01/20/2021, 01/15/2020, 01/11/2019, 12/30/2017 ultrasound right breast 01/21/2022. TECHNIQUE/PROCEDURE: Informed consent was obtained from the patient after discussion of the benefits, risks, and alternatives to biopsy today. Patient appeared to understand. Gave opportunity for questions. Patient signed consent form. Hospital provided mechanical artist assisted for consent and home instructions. BIOPSY TABLE: [employer] Prone Biopsy System. LESION: Fibroglandular asymmetry central upper right breast on MLO view with mixed glandular and fatty composition, no CC correlate. Differential considerations include benign fibroglandular tissue, hamartoma, PASH, other. LOCAL ANESTHESIA: 10 mL carbonated 1% lidocaine; 16 mL 1% lidocaine with epinephrine. DERMATOTOMY: Single skin reddy dermatotomy performed. NEEDLE: [employer] 9-gauge vacuum assisted core biopsy device. APPROACH: lateral medial. TARGETING: Combination of digital breast tomosynthesis and stereotactic digital mammography used for targeting. CORES: 12 cores. (To insure comprehensive sampling of asymmetric fibroglandular density, 6 cores obtained at Z depth and 6 cores obtained at 10 mm more superficial from Z. Stage moved back 5 mm to allow for clip placement in between the sampling depths). CLIP: [employer] T-shaped marker. SPECIMEN RADIOGRAPH: Specimen radiograph is taken in separate room using digital mammography. There are scattered fibroglandular densities in the cores as expected. POST PROCEDURE UNILATERAL DIGITAL BREAST TOMOSYNTHESIS, RIGHT: The post biopsy digital breast tomography is performed in separate room using separate digital tomography equipment from the biopsy procedure. CC and ML views are obtained. There are scattered areas of fibroglandular density (breast composition category: b). The clip marker is in expected position. No gross hematoma. The patient tolerated the procedure well. No immediate complications. Home instructions reviewed with the patient. Final pathology results are pending. MM/MM stereotactic biopsy RT IMPRESSION: 1. Digital tomosynthesis-guided core biopsy right breast with clip placement. 2. Specimen radiograph taken and post procedure mammogram. There is satisfactory positioning of the biopsy clip. 3. Final pathology results pending. An addendum report will be issued.
[2022-01-26] MEDS: Lidocaine HCl 1 % 20 ML VIAL 10 ML SUBCUT (10:03)
[2022-01-26] MEDS: Sodium Bicarbonate 8.4% 50 MEQ/50 ML VIAL SUBCUT (10:07)
== END 2022-01-26 08:08 | disposition home or self-care (01) ==
LOC: HO.MAMMO 08:07
PROVIDERS: Visit Provider Surgery
DX: R92.8 Other abnormal and inconclusive findings on diagnostic imaging of breast (principal); N60.21 Fibroadenosis of right breast
CPT/HCPCS: 19081; 88305; A4648

== ENCOUNTER 2022-02-11 11:10 | Outpatient (REF) | payer MEDICARE, MEDICAID, SELFPAY ==
[2022-02-11 14:02] LABS: Free T4 (Free Thyroxine) 0.85 ng/dL (0.71-1.85); Thyroid Stimulating Hormone 3.08 uIU/mL (0.32-4.0)
[2022-02-13 01:46] LABS: Thyroid Peroxidase Antibodies 544 IU/mL (<9)
== END 2022-02-11 11:11 | disposition home or self-care (01) ==
LOC: HO.LAB 11:10
PROVIDERS: Absent Provider Internal Medicine Endocrinology, Diabetes & Metabolism; PCP Internal Medicine Geriatric Medicine; Referring Provider Internal Medicine Geriatric Medicine; Visit Provider Surgery
DX: R92.8 Other abnormal and inconclusive findings on diagnostic imaging of breast (principal); E04.2 Nontoxic multinodular goiter
CPT/HCPCS: 36415; 84439; 84443; 86376; 99212

== ENCOUNTER → 2022-02-16 11:14 | Outpatient (BNVA) | payer MEDICARE, MEDICAID, SELFPAY | PROVIDERS: PCP Internal Medicine Geriatric Medicine; Visit Provider Registered Nurse Diabetes Educator | DX: E11.21 Type 2 diabetes mellitus with diabetic nephropathy (principal) | CPT/HCPCS: 99211 ==

== ENCOUNTER → 2022-03-16 14:02 | Outpatient (BNVA) | payer MEDICARE, MEDICAID, SELFPAY | PROVIDERS: PCP Internal Medicine Geriatric Medicine; Visit Provider Registered Nurse Diabetes Educator | DX: E11.21 Type 2 diabetes mellitus with diabetic nephropathy (principal) | CPT/HCPCS: 99211 ==

== ENCOUNTER → 2022-04-02 12:12 | Outpatient (BNVA) | payer MEDICARE, MEDICAID, SELFPAY | PROVIDERS: Visit Provider Physician Assistant | DX: M17.11 Unilateral primary osteoarthritis, right knee (principal) | CPT/HCPCS: 20610; 99212; J1020 ==

== ENCOUNTER 2022-04-05 09:06 | Emergency (ER) | payer MEDICARE, MEDICAID, SELFPAY ==
[2022-04-05 09:10] VITALS: BP 134/61; PULSE 77; RESP 18; TEMP 36.8; O2SAT 98; BMI 30.7
[2022-04-05 10:16] VITALS: BP 140/69; PULSE 76; RESP 18; O2SAT 99
--- NOTE | 2022-04-05 10:20 | ED.FEMALEGU ---
HPI - Female Genitourinary General Chief complaint: Urogenital-Female Stated complaint: lower back and waist pain Time Seen by Provider: 04/05/22 10:20 Source: patient and court interpreter Mode of arrival: ambulatory History of Present Illness HPI Narrative: 66-year-old female who has a history of diabetes presents with bilateral lower back pain without associated fever, chills, nausea, vomiting, saddle anesthesia, bowel or bladder dysfunction, diarrhea and has chronic back pain at baseline. She denies any falls. Related Data Home Medications Medication Instructions Recorded Confirmed acetaminophen 500 mg tablet 1 - 2 tab PO Q8H PRN 08/06/20 02/11/22 aspirin 81 mg tablet,delayed 1 tab PO DAILY 08/06/20 02/11/22 release atorvastatin 20 mg tablet 20 mg PO BEDTIME 08/06/20 02/11/22 benztropine 1 mg tablet 1 mg PO BID 08/06/20 02/11/22 fluphenazine decanoate 25 mg/mL 50 mg IM Q3W 08/06/20 02/11/22 injection solution lisinopril 10 mg tablet 10 mg PO DAILY 08/06/20 02/11/22 nortriptyline 75 mg capsule 75 mg PO BEDTIME 08/06/20 02/11/22 omeprazole 20 mg capsule,delayed 20 mg PO DAILY 08/06/20 02/11/22 release zolpidem 5 mg tablet (Ambien) 5 mg PO BEDTIME 08/06/20 02/11/22 polyvinyl alcohol 1.4 % eye drops 1 drp OPHTHALMIC (EYE) BID 03/02/21 02/11/22 (Artificial Tears (polyvinyl alcohol)) alcohol swabs 1 pad TOPICAL QID 04/23/21 02/11/22 Previous Rx's Medication Instructions Recorded Tresiba FlexTouch U-200 200 140 unit (0.7 mL) SUBCUT DAILY 30 04/23/21 unit/mL (3 mL) subcutaneous pen Days #27 ml NS (insulin degludec) dexamethasone 1 mg tablet 1 mg PO ONCE 1 Days #1 tab 04/23/21 ibuprofen 800 mg tablet 800 mg PO Q8H PRN 30 Days #90 tab 07/08/21 pen needle, diabetic 32 gauge x #400 ea 11/18/21 (BD Edilia 2nd Gen Pen Needle) blood sugar diagnostic (FreeStyle #100 ea 12/01/21 Lite Strips) semaglutide 1 mg/dose (2 mg/1.5 1 mg (0.75 mL) SUBCUT QWEEK 30 12/28/21 mL) subcutaneous pen injector Days #3.75 ml letrozole 2.5 mg tablet (Femara) 2.5 mg PO DAILY #90 tab 12/31/21 Novolog Flexpen U-100 Insulin 100 30 unit (0.3 mL) SUBCUT TID 30 01/04/22 unit/mL (3 mL) subcutaneous Days #30 ml NS (insulin aspart U-100) meloxicam 7.5 mg tablet 7.5 mg PO DAILY 30 Days #30 tab 04/02/22 amoxicillin 875 mg-potassium 1 tab PO Q12H 5 Days #10 tab 04/05/22 clavulanate 125 mg tablet Allergies Allergy/AdvReac Type Severity Reaction Status Date / Time metformin [METFORMIN] Allergy Intermediate ELEVATED Verified 02/11/22 11:22 LIVER ENZYMES, liver damage Review of Systems Review of Systems: Pertinent positives and negatives as stated in HPI 10 point review of systems is otherwise negative. [facility] Past Medical History Source: nursing notes reviewed Medical History Bipolar disorder Colitis Diabetes mellitus Diabetes type 2, uncontrolled Diabetic nephropathy associated with type 2 diabetes mellitus Dyslipidemia Fever of unknown origin Hirsutism History of left breast cancer HTN (hypertension) Hypercalcemia Hyperlipidemia Hypertension Liver cirrhosis skilled nursing (current) use of insulin Multinodular goiter (nontoxic) Obesity Urinary incontinence Surgical History History of appendectomy History of tonsillectomy History of tubal ligation Hx of cholecystectomy Hx of colonoscopy Hx of removal of ovary Status post laser cataract surgery of both eyes Status post left breast lumpectomy Family History Family History Father History of lung cancer Social History Social History Household Members: None Housing: Apartment Do you presently have visiting nurse or other home services: Yes ([facility] ) Alcohol intake: never Patient Tobacco Use Status: Former Tobacco user Quit Date: >30 YRS AGO Second Hand Smoke Exposure: No Advance Directives: No Advance Directives Information Provided: Yes service: No Current occupational status: unemployed Current occupation: rt handed Physical Exam Vital Signs: Vital Signs: Last Vital Signs Temp 98.3 F 04/05/22 09:10 Pulse 76 04/05/22 10:16 Resp 18 04/05/22 10:16 BP 140/69 H 04/05/22 10:16 Pulse Ox 99 04/05/22 10:16 BMI result Body Mass Index 30.7 VITAL SIGNS: Reviewed. GENERAL: Well developed, well nourished, in no acute distress. HEAD: Normocephalic/atraumatic EYES: PERRLA, EOMI EARS: Ext canals without abnormality OROPHARYNX: no oral lesions noted, posterior pharynx clear LUNGS: Normal breath sounds. No adventitious sounds or accessory muscle use. SpO2<99> CARDIOVASCULAR: Regular rate and rhythm without noted murmurs ABDOMEN: Soft, non-tender, non-distended with bowel sounds. BACK: No midline vertebral tenderness but tenderness on palpation bilaterally without gross evidence of spasm MUSCULOSKELETAL: No tenderness, deformities, or effusions noted on gross inspection. EXTREMITIES: No cyanosis, clubbing or edema. SKIN: Inspection of the skin reveals no rashes NEUROLOGIC: Alert and oriented x 4. Course Course Course Narrative: 66-year-old female with history and clinical presentation consistent with acute on chronic back pain or possible UTI. Otherwise history and clinical exam not consistent with gastroenteritis or interim abdominal pathology, infectious etiology. Review of all investigations demonstrates patient has a UTI and on re-evaluation she reports significant improvement in her pain and discomfort. She will receive initial antibiotics here in and be discharged home in stable condition. MDM - Female Genitourinary Lab Data Labs: Lab Results 04/05/22 04/05/22 Range/Units 11:07 11:52 POC Glucose 120 H (60-115) mg/dL Urine Color YELLOW Urine Appearance HAZY Urine pH 6.0 (5.0-8.0) Ur Specific Mather <= 1.005 (1.005-1.025) Urine Protein NEG (NEG-TRACE) MG/DL Urine Glucose (UA) NEG (NEG) MG/DL Urine Ketones NEG (NEG) MG/DL Urine Blood NEG (NEG) Urine Nitrite NEG (NEG) Ur Leukocyte Esterase 3+ H (NEG) Urine RBC 1-4 (0) /HPF Urine WBC 15-29 H (0-4) /HPF Ur Squamous Epith Cells 1+ /LPF Urine Bacteria 1+ /LPF Discharge Plan Discharge Clinical Impression: Acute UTI Patient Disposition: Home, Self-Care Instructions: Urinary Tract Infection in Older Adults (ED) Additional Instructions: 1. Reanudar todos los medicamentos caseros. 2. Complete todo el ciclo de antibi?ticos seg?n lo indicado. 3. Recomendar Tylenol/ibuprofeno de venta jaimie seg?n sea necesario para controlar el dolor. 4. Seguimiento con alva proveedor de atenci?n primaria en los pr?ximos 1 a 2 d?as. Regrese a la elenita de emergencias si los s?ntomas empeoran. Prescriptions: New amoxicillin-pot clavulanate 875-125 mg tablet 1 tab PO Q12H 5 Days Qty: 10 0RF No Action ibuprofen 800 mg tablet 800 mg PO Q8H PRN (Reason: pain) 30 Days Qty: 90 3RF (DME) pen needle, diabetic [BD Edilia 2nd Gen Pen Needle] 32 gauge x 5/32 needle See Rx Instructions .MEDSUPPLY Qty: 400 4RF Rx Instructions: 5 times a day (DME) FreeStyle Lite Strips Strip See Rx Instructions .MEDSUPPLY Qty: 100 6RF Rx Instructions: 3 times a day Ozempic 1 mg/dose (2 mg/1.5 mL) pen injector 1 mg subcut QWEEK 30 Days Qty: 3.75 4RF insulin aspart U-100 [Novolog Flexpen U-100 Insulin] 100 unit/mL (3 mL) insulin pen 30 unit subcut TID 30 Days Qty: 30 6RF polyvinyl alcohol [Artificial Tears (polyvin alc)] 1.4 % drops 1 drp ophthalmic (eye) BID 0RF nortriptyline 75 mg capsule 75 mg PO BEDTIME 0RF zolpidem [Ambien] 5 mg Tablet 5 mg PO BEDTIME 0RF atorvastatin 20 mg tablet 20 mg PO BEDTIME 0RF aspirin 81 mg tablet,delayed release (DR/EC) 1 tab PO DAILY 0RF acetaminophen 500 mg tablet 1 - 2 tab PO Q8H PRN (Reason: pain) 0RF fluphenazine decanoate 25 mg/mL solution 50 mg IM Q3W 0RF lisinopril 10 mg tablet 10 mg PO DAILY 0RF benztropine 1 mg tablet 1 mg PO BID 0RF omeprazole 20 mg capsule,delayed release(DR/EC) 20 mg PO DAILY 0RF letrozole [Femara] 2.5 mg tablet 2.5 mg PO DAILY Qty: 90 3RF alcohol swabs Pads, Medicated 1 pad topical QID 0RF Tresiba FlexTouch U-200 200 unit/mL (3 mL) insulin pen 140 unit subcut DAILY 30 Days Qty: 27 6RF dexamethasone 1 mg tablet 1 mg PO ONCE 1 Days Qty: 1 0RF Rx Instructions: Once at 23:00 before blood test meloxicam 7.5 mg tablet 7.5 mg PO DAILY 30 Days Qty: 30 3RF Referrals: Name,MD Gopi [Primary Care Provider] - Print Language: Micronesian
[2022-04-05] MEDS: Ibuprofen 400 MG TABLET PO (11:01)
[2022-04-05] MEDS: Acetaminophen 325 MG TABLET 975 MG PO (11:02)
[2022-04-05] MEDS: Lidocaine 4 % Patch ADH..PATCH 1 PATCH TRANSDERMA (11:02)
[2022-04-05 11:13] LABS: Color Urine YELLOW; Glucose Urine UA NEG (NEG); Leukocyte Esterase Urine 3+ (NEG); Nitrite Urine NEG (NEG); Specific Gravity - Urine <= 1.005 (1.005-1.025); UACC Culture Trigger YES; Urine Blood NEG (NEG); Urine Ketones NEG (NEG); Urine Protein NEG (NEG-TRACE)
[2022-04-05 11:14] LABS: Appearance Urine HAZY
[2022-04-05 11:28] LABS: Bacteria Urine 1+ /LPF; Squamous Epithelial Cell Urine 1+ /LPF
[2022-04-05 11:57] LABS: Glucose, Whole Blood 120 mg/dL (60-115)
[2022-04-05] MEDS: Amoxicillin/Potassium Clav 875 MG TABLET PO (12:50)
== END 2022-04-05 12:54 | disposition home or self-care (01) ==
PROVIDERS: Emergency Provider Student in an Organized Health Care Education/Training Program; PCP Internal Medicine Geriatric Medicine
DX: N39.0 Urinary tract infection, site not specified (principal); M54.50 Low back pain, unspecified; I10 Essential (primary) hypertension; E78.5 Hyperlipidemia, unspecified; E11.9 Type 2 diabetes mellitus without complications; Z79.4 Long term (current) use of insulin
CPT/HCPCS: 81001; 82947; 87086; 99283; 99284

== ENCOUNTER → 2022-04-07 10:32 | Outpatient (BNVA) | payer MEDICARE, MEDICAID, SELFPAY | PROVIDERS: PCP Internal Medicine Geriatric Medicine; Visit Provider Internal Medicine Endocrinology, Diabetes & Metabolism | DX: E11.65 Type 2 diabetes mellitus with hyperglycemia (principal); E04.2 Nontoxic multinodular goiter; Z79.4 Long term (current) use of insulin | CPT/HCPCS: 82947; 83036; 99212 ==

== ENCOUNTER → 2022-06-24 13:42 | Outpatient (BNVA) | payer MEDICARE, MEDICAID, SELFPAY | PROVIDERS: PCP Internal Medicine Geriatric Medicine; Visit Provider Registered Nurse Diabetes Educator | DX: E11.21 Type 2 diabetes mellitus with diabetic nephropathy (principal) | CPT/HCPCS: 99211 ==

== ENCOUNTER 2022-07-15 13:19 | Outpatient (REF) | payer MEDICARE, MEDICAID, SELFPAY ==
--- NOTE | ~2022-07-15 | MM_ITS ---
EXAMINATION: BONE DENSITOMETRY CLINICAL INDICATION: On aromatase inhibitor therapy. COMPARISON: Previous BD dated 04/04/2019 and baseline BD dated 05/18/2012. TECHNIQUE: Using a 8bit DXA System (software version: 13.1) manufactured by [employer], dual-energy x-ray absorptiometry was performed of the lumbar spine and left hip. The images are of good technical quality. Summary results are attached. FINDINGS: AP SPINE L1-L4: Current: BMD 1.218 g/cm2, Z-score 1.3, T-score 0.3, normal, 13.3% decrease from previous, 5.7% decrease from baseline (<5% change is not significant). Prior: BMD 1.405 g/cm2. Baseline: BMD 1.292 g/cm2. LEFT FEMUR, NECK: Current: BMD 1.006 g/cm2, Z-score 0.9, T-score -0.2, normal. Prior: BMD 1.067 g/cm2. Baseline: BMD 1.148 g/cm2. LEFT FEMUR, TOTAL: Current: BMD 1.157 g/cm2, Z-score 2.0, T-score 1.2, normal, 12.6% decrease from previous, 13.1% decrease from baseline (<5% change is not significant). Prior: BMD 1.324 g/cm2. Baseline: BMD 1.332 g/cm2. IDENTIFIED RISK FACTORS: Early menopause, bilateral oophorectomy, secondary osteoporosis. HISTORY OF FRACTURE: None listed. MEDICATIONS: None listed. MM/XR DEXA axial skeleton IMPRESSION: 1. DIAGNOSIS: Normal bone density based on the lowest T-score value of -0.2 in the femoral neck applying World Health Organization criteria. 2. 10-YEAR FRACTURE RISK PREDICTION, FRAX: According to the guidelines, FRAX calculation should only be performed on patients in the osteopenia bone density category. Therefore, FRAX was not performed on this patient. 3. Treatment Recommendations: NOF guidelines recommend consideration for treatment in postmenopausal women and men age 50 and older presenting with the following: -A hip or vertebral (clinical or morphometric) fracture. -T-score less than or equal to -2.5 at the femoral neck or spine after appropriate evaluation to exclude secondary causes. -Low bone mass at the hip or spine and a 10-year fracture probability by FRAX of greater than or equal to 3% for hip fracture or greater than or equal to 20% for major osteoporotic fracture based on the [place] adapted WHO algorithm. 4. Other Recommendations: All treatment decisions require clinical judgment and consideration of individual patient factors, including patient preferences, comorbidities, previous drug use, risk factors not captured in the FRAX model (e.g. frailty, falls, vitamin D deficiency, increased bone turnover, interval significant decline in bone density) and possible under or overestimation of fracture risk by FRAX. FUTURE SCAN RECOMMENDATION: People with diagnosed cases of osteoporosis or at high risk for fracture should have regular bone mineral density tests. For patients eligible for Medicare, routine testing is allowed once every 2 years. The testing frequency can be increased to one year for patients who have rapidly progressing disease, those who are receiving or discontinuing medical therapy to restore bone mass, or have additional risk factors.
== END 2022-07-15 13:20 | disposition home or self-care (01) ==
LOC: HO.MAMMO 13:19
PROVIDERS: PCP Internal Medicine Geriatric Medicine; Visit Provider Internal Medicine
DX: Z13.820 Encounter for screening for osteoporosis (principal); Z79.818 Long term (current) use of other agents affecting estrogen receptors and estrogen levels; C50.912 Malignant neoplasm of unspecified site of left female breast; Z78.0 Asymptomatic menopausal state
CPT/HCPCS: 77080

== ENCOUNTER 2022-07-23 12:58 | Outpatient (REF) | payer MEDICARE, MEDICAID, SELFPAY | END 2022-07-23 12:59 | disposition home or self-care (01) | LOC: HO.MAMMO 12:58 | PROVIDERS: PCP Internal Medicine Geriatric Medicine; Visit Provider Surgery | DX: Z13.89 Encounter for screening for other disorder (principal) ==

== ENCOUNTER → 2022-08-11 13:53 | Outpatient (BNVA) | payer MEDICARE, MEDICAID, SELFPAY | PROVIDERS: PCP Internal Medicine Geriatric Medicine; Visit Provider Internal Medicine Endocrinology, Diabetes & Metabolism | DX: E11.65 Type 2 diabetes mellitus with hyperglycemia (principal); E04.2 Nontoxic multinodular goiter | CPT/HCPCS: 82947; 83036; 99212 ==

== ENCOUNTER 2022-09-09 09:30 | Outpatient (REF) | payer MEDICARE, MEDICAID, SELFPAY ==
[2022-09-09 10:46] LABS: Anion Gap 18 (12-20); Blood Urea Nitrogen 18 mg/dL (9-16); Calcium 10.2 mg/dL (8.4-10.2); Carbon Dioxide 21 mmol/L (22-29); Chloride 102 mmol/L (96-108); Estimated Glomerular Filt Rate > 60; Glucose Random 131 mg/dL (60-115); Potassium 5.2 mmol/L (3.3-5.1); Sodium 136 mmol/L (135-145)
== END 2022-09-09 09:31 | disposition home or self-care (01) ==
LOC: HO.LAB 09:30
PROVIDERS: PCP Internal Medicine Geriatric Medicine; Visit Provider Internal Medicine Endocrinology, Diabetes & Metabolism
DX: E04.2 Nontoxic multinodular goiter (principal)
CPT/HCPCS: 36415; 80048

== ENCOUNTER 2022-09-11 10:30 | Outpatient (REF) | payer MEDICARE, MEDICAID, SELFPAY | END 2022-09-11 10:31 | disposition home or self-care (01) | LOC: HO.LAB 10:30 | PROVIDERS: PCP Internal Medicine Geriatric Medicine; Visit Provider Internal Medicine Endocrinology, Diabetes & Metabolism | DX: E11.65 Type 2 diabetes mellitus with hyperglycemia (principal) | CPT/HCPCS: 36415; 84132 ==

== ENCOUNTER → 2022-10-28 14:35 | Outpatient (BNVA) | payer MEDICARE, MEDICAID, SELFPAY | PROVIDERS: PCP Internal Medicine Geriatric Medicine; Visit Provider Registered Nurse Diabetes Educator | DX: E11.21 Type 2 diabetes mellitus with diabetic nephropathy (principal) | CPT/HCPCS: 99211 ==

== ENCOUNTER → 2022-12-17 13:50 | Outpatient (BNVA) | payer MEDICARE, MEDICAID, SELFPAY | PROVIDERS: PCP Internal Medicine Geriatric Medicine; Visit Provider Internal Medicine Endocrinology, Diabetes & Metabolism | DX: E11.21 Type 2 diabetes mellitus with diabetic nephropathy (principal); E11.65 Type 2 diabetes mellitus with hyperglycemia; E04.2 Nontoxic multinodular goiter | CPT/HCPCS: 82947; 83036; 99212 ==

== ENCOUNTER 2023-01-25 13:55 | Outpatient (REF) | payer MEDICARE, MEDICAID, SELFPAY ==
--- NOTE | ~2023-01-25 | MM_ITS ---
EXAMINATION: MM SCREENING DIGITAL BREAST TOMOSYNTHESIS, BILATERAL CLINICAL INFORMATION: Screening. Asymptomatic. Left breast lumpectomy. COMPARISON: Mammography: January 26, 2022 and studies dating back to December 30, 2017 TECHNIQUE: Digital breast tomosynthesis is performed in both the craniocaudal and mediolateral oblique views along with computer-aided detection (CAD). Synthesized 2D images are generated from the tomosynthesis. FINDINGS: The breasts are heterogeneously dense, which may obscure small masses (ACR BI-RADS breast composition Category c). There is a stable parenchymal pattern of the right breast with no new abnormal dominant mass or suspicious grouping of microcalcifications. Stable postsurgical and postradiation changes of the left breast are evident. MM/MM tomosynthesis screening BI IMPRESSION: No significant changes from prior exam. ASSESSMENT: BI-RADS 2: Benign RECOMMENDATION: Routine annual mammography screening. This patient's information was entered into a reminder system with a target due date for their next mammogram.
== END 2023-01-25 13:56 | disposition home or self-care (01) ==
LOC: HO.MAMMO 13:55
PROVIDERS: PCP Internal Medicine Geriatric Medicine; Visit Provider Internal Medicine Geriatric Medicine
DX: Z12.31 Encounter for screening mammogram for malignant neoplasm of breast (principal)
CPT/HCPCS: 77063; 77067

== ENCOUNTER 2023-02-01 14:28 | Emergency (ER) | payer MEDICARE, MEDICAID, SELFPAY ==
--- NOTE | ~2023-02-01 | XR_ITS ---
EXAMINATION: XR HIP, RIGHT CLINICAL INFORMATION: Right hip pain. COMPARISON: None available. TECHNIQUE: Two views of the right hip. AP view of the pelvis FINDINGS: Pelvic bones have normal alignment. The joint spaces at the hips, pubic symphysis and sacroiliac joints are maintained. No focal lytic or osteoblastic lesion. At the right hip, the femoral head is well-positioned within the intact acetabulum. There is no radiographic evidence of any significant degenerative or inflammatory arthropathy. No erosions or periostitis. Incidentally noted are calcifications in the pelvis that correspond to partially calcified uterine leiomyomas. XR/XR hip RT w PEL1V IMPRESSION: * Normal right hip. * Incidental noted are calcified uterine leiomyomas (better depicted on the pelvic CT of 09/23/2021).
[2023-02-01 14:31] VITALS: BP 117/74; PULSE 78; RESP 18; TEMP 36.6; O2SAT 98; BMI 34.2
--- NOTE | 2023-02-01 14:36 | ED_ITS ---
HPI - General Adult General Chief complaint: Extremity Injury, Lower <MARY Medellin - Last Filed: 02/01/23 14:37> Stated complaint: R hip pain <MARY Medellin - Last Filed: 02/01/23 14:37> Time Seen by Provider: 02/01/23 15:19 <MARY Medellin - Last Filed: 02/01/23 14:37> Source: patient, RN notes reviewed and old records reviewed <MARY Harp - Last Filed: 02/01/23 17:11> Mode of arrival: wheelchair <MARY Harp - Last Filed: 02/01/23 17:11> History of Present Illness HPI narrative: 67-year-old female with a past medical history of bipolar, diabetes, HLD, HTN, liver cirrhosis, goiter, obesity, presenting to the ED complaining of acute on chronic right hip pain x1 week. Reports history of arthritis, states pain is similar. Denies no injury, trauma, fall, numbness, tingling, urinary chronic /returning home abdominal pain. Admits up PCP yesterday and was prescribed topical lotion without relief. <MARY Harp - Last Filed: 02/01/23 17:11> Onset (ago): day(s) <MARY Harp - Last Filed: 02/01/23 17:11> Related Data Home medications: Home Medications Medication Instructions Recorded Confirmed acetaminophen 500 mg tablet 1 - 2 tab PO Q8H PRN pain 08/06/20 01/07/23 aspirin 81 mg tablet,delayed 1 tab PO DAILY 08/06/20 01/07/23 release atorvastatin 20 mg tablet 20 mg PO BEDTIME 08/06/20 01/07/23 benztropine 1 mg tablet 1 mg PO BID 08/06/20 01/07/23 fluphenazine decanoate 25 mg/mL 50 mg IM Q3W 08/06/20 01/07/23 injection solution lisinopril 10 mg tablet 10 mg PO DAILY 08/06/20 01/07/23 nortriptyline 75 mg capsule 75 mg PO BEDTIME 08/06/20 01/07/23 omeprazole 20 mg capsule,delayed 20 mg PO DAILY 08/06/20 01/07/23 release zolpidem 5 mg tablet (Ambien) 5 mg PO BEDTIME 08/06/20 01/07/23 polyvinyl alcohol 1.4 % eye drops 1 drp ophthalmic (eye) BID 03/02/21 01/07/23 (Artificial Tears (polyvinyl alcohol)) alcohol swabs 1 pad topical QID 04/23/21 01/07/23 flash glucose scanning reader 08/11/22 01/07/23 (FreeStyle Anahy 2 Seltzer) flash glucose sensor (FreeStyle 08/11/22 01/07/23 Anahy 2 Sensor kit) insulin aspart U-100 100 unit/mL 20 unit subcut TID 08/11/22 01/07/23 (3 mL) subcutaneous pen (Novolog FlexPen U-100 Insulin aspart) Previous Rx's Medication Instructions Recorded ibuprofen 800 mg tablet 800 mg PO Q8H PRN pain 30 days #90 07/08/21 tabs insulin degludec 200 unit/mL (3 85 unit (0.425 mL) subcut DAILY #9 07/05/22 mL) subcutaneous pen (Tresiba mL FlexTouch U-200 insulin) glucose 4 gram chewable tablet 4 g PO Q15M PRN hypoglycemia #30 09/01/22 tabs blood sugar diagnostic (FreeStyle #100 ea 10/28/22 Lite Strips) meloxicam 7.5 mg tablet 7.5 mg PO DAILY #30 tabs 11/22/22 pen needle, diabetic 32 gauge x #400 ea 11/23/22 5/32 (BD Edilia 2nd Gen Pen Needle) empagliflozin 10 mg tablet See Rx Instructions .Route 12/14/22 (Jardiance) .COMPLEX #30 tabs lancets 28 gauge (FreeStyle #100 ea 12/22/22 Lancets) letrozole 2.5 mg tablet (Femara) 2.5 mg PO DAILY #90 tabs 12/29/22 semaglutide 2 mg/dose (8 mg/3 mL) 2 mg (0.75 mL) subcut QWEEK #3 mL 01/03/23 subcutaneous pen injector (Ozempic) cyclobenzaprine 5 mg tablet 5 mg PO Q8H PRN pain (scale score 02/01/23 7-10) 5 days #14 tabs lidocaine 5 % topical patch 1 patch topical DAILY PRN pain #30 02/01/23 (Lidoderm) ea <MARY Medellin - Last Filed: 02/01/23 14:37> Allergies/adverse reactions: Allergies Allergy/AdvReac Type Severity Reaction Status Date / Time metformin [METFORMIN] Allergy Intermediate ELEVATED Verified 02/01/23 14:31 LIVER ENZYMES, liver damage <MARY Medellin - Last Filed: 02/01/23 14:37> Review of Systems Review of Systems: Constitutional: No Weight loss, No Fever, No Chills ENT/Mouth: No Ear Pain, No Nasal Congestion, No sore throat, No Rhinorrhea, No Swallowing Difficulty Cardiovascular: No Chest Pain, No SOB Respiratory: No Cough, No Sputum, No Wheezing Gastrointestinal: No Nausea, No Vomiting, No Diarrhea, No Constipation, No Abdominal pain Genitourinary: No Dysuria, No Urinary Frequency, No Hematuria, No Urinary Incontinence/retention, No Flank Pain Musculoskeletal: + joint pain, No Myalgias, No Joint Swelling Skin: No Skin Lesions, No rash Neuro: No Weakness, No Numbness, No Paresthesias <MARY Harp - Last Filed: 02/01/23 17:11> Yes all other systems are reviewed and are negative <MARY Harp - Last Filed: 02/01/23 17:11> Constitutional: Constitutional: Reports as per HPI <MARY Harp - Last Filed: 02/01/23 17:11> PMF Past Medical History Attestation statement: The following information was validated with the patient. 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 <MARY Medellin - Last Filed: 02/01/23 14:37> Social History Social History: Social History Household Members: None Housing: Apartment Do you presently have visiting nurse or other home services: Yes ([facility] ) Alcohol intake: never Patient Tobacco Use Status: Former Tobacco user Quit Date: >30 YRS AGO Second Hand Smoke Exposure: No Advance Directives: No Advance Directives Information Provided: No service: No Current occupational status: unemployed Current occupation: rt handed <MARY Medellin - Last Filed: 02/01/23 14:37> Physical Exam ED Vital Signs: Vital Signs - 24 hr 02/01/23 14:31 Temperature 98 F Pulse Rate 78 Respiratory Rate 18 Blood Pressure 117/74 Pulse Oximetry 98 BMI result Body Mass Index 34.2 <MARY Medellin - Last Filed: 02/01/23 14:37> Vital Signs - 24 hr 02/01/23 14:31 Temperature 98 F Pulse Rate 78 Respiratory Rate 18 Blood Pressure 117/74 Pulse Oximetry 98 BMI result Body Mass Index 34.2 <MARY Harp - Last Filed: 02/01/23 17:11> Const General: cooperative, healthy appearing and no acute distress <MARY Harp Last Filed: 02/01/23 17:11> Orientation/consciousness: patient oriented x3 <MARY Harp - Last Filed: 02/01/23 17:11> Limitations: no limitations <MARY Harp Last Filed: 02/01/23 17:11> HENMT Head: Yes normal to inspection and Yes atraumatic <MARY Harp - Last Filed: 02/01/23 17:11> Ears: hearing grossly normal bilaterally <Alva Beatty PA - Last Filed: 02/01/23 17:11> General nose exam: Normal external nose present <Alva Beatty PA - Last Filed: 02/01/23 17:11> Face and sinus: Yes normal facial exam <Alva Beatty PA - Last Filed: 02/01/23 17:11> Eyes General: appearance normal, both eyes and all related structures <Alva Beatty PA - Last Filed: 02/01/23 17:11> EOM: EOMs intact bilaterally <Alva Beatty PA - Last Filed: 02/01/23 17:11> Neck Neck: Yes normal visual inspection and Yes no meningeal signs <Alva Beatty PA - Last Filed: 02/01/23 17:11> Resp Effort & Inspection: normal respiratory effort and no respiratory distress <Alva Beatty PA - Last Filed: 02/01/23 17:11> Cardio Rate: regular rate <Alva Beatty PA - Last Filed: 02/01/23 17:11> Heart sounds: S1 normal heart sound present and S2 normal heart sound present <Alva Beatty PA - Last Filed: 02/01/23 17:11> GI Inspection: Yes normal to inspection <Alva Beatty PA - Last Filed: 02/01/23 17:11> Palpation (GI): Soft to palpation, nontender, no guarding and not rigid <Alva Beatty PA - Last Filed: 02/01/23 17:11> Back/Spine/Pelvis Other: No midline thoracic/lumbar spinous tenderness/step-off or deformity <Alva Beatty PA - Last Filed: 02/01/23 17:11> Skin Rashes: no rashes <Alva Beatty PA - Last Filed: 02/01/23 17:11> Wounds: no wounds <Alva Beatty PA - Last Filed: 02/01/23 17:11> Neuro General: patient oriented x3, tone normal and no meningeal signs <Alva Beatty PA - Last Filed: 02/01/23 17:11> Gait exam (Neuro): Normal gait present <MARY Harp - Last Filed: 02/01/23 17:11> Extrem Other: Right hip with mild tenderness. No appreciable deformity, no erythema/ ecchymosis or warmth. Full range of motion actively and passively intact. Neurovascular intact distally. <MARY Harp - Last Filed: 02/01/23 17:11> General: Yes normal to inspection <MARY Harp - Last Filed: 02/01/23 17:11> Course Course Course Narrative: This is an RME: Additional HPI, ROS, PE not included below will be deferred to primary provider. 67-year-old female history of osteoarthritis, hypertension, dyslipidemia, multinodular goiter, type 2 diabetes presenting with right-sided hip pain since yesterday. Atraumatic in nature. Reports she typically has right hip pain however worsening as of yesterday, difficulties walking. Denies numbness and tingling in trauma. No fevers and chills or overlying skin changes physical exam patient states she can not ambulate due to pain. In a wheelchair. Plan imaging <MARY Medellin - Last Filed: 02/01/23 14:37> This is an RME: Additional HPI, ROS, PE not included below will be deferred to primary provider. 67-year-old female history of osteoarthritis, hypertension, dyslipidemia, multinodular goiter, type 2 diabetes presenting with right-sided hip pain since yesterday. Atraumatic in nature. Reports she typically has right hip pain however worsening as of yesterday, difficulties walking. Denies numbness and tingling in trauma. No fevers and chills or overlying skin changes physical exam patient states she can not ambulate due to pain. In a whe elchair. Plan imaging 1618--XR hip RT w PEL1V IMPRESSION: *? Normal right hip. *? Incidental noted are calcified uterine leiomyomas (better depicted on the pelvic CT of 09/23/2021). > Results discussed with patient including worrisome signs and symptoms and strict return precautions, and when to return to the emergency department. They verbalized understanding and feel safe for discharge at this time. <MARY Harp Last Filed: 02/01/23 17:11> Medications Administered Discontinued Medications Generic Name Dose Route Start Last Admin Trade Name Freq PRN Reason Stop Dose Admin Ketorolac Tromethamine 30 mg 02/01/23 16:19 02/01/23 16:48 Ketorolac Tromethamine 30 Mg/Ml Vial IM 02/01/23 16:20 30 mg ONCE ONE Administration Lidocaine 1 patch 02/01/23 16:19 02/01/23 16:46 Lidocaine 4 % Patch Adh..Patch TRANSDERMA 02/01/23 16:20 1 patch ONCE ONE Administration Protocol <MARY Medellin - Last Filed: 02/01/23 14:37> Medications Administered Discontinued Medications Generic Name Dose Route Start Last Admin Trade Name Freq PRN Reason Stop Dose Admin Ketorolac Tromethamine 30 mg 02/01/23 16:19 02/01/23 16:48 Ketorolac Tromethamine 30 Mg/Ml Vial IM 02/01/23 16:20 30 mg ONCE ONE Administration Lidocaine 1 patch 02/01/23 16:19 02/01/23 16:46 Lidocaine 4 % Patch Adh..Patch TRANSDERMA 02/01/23 16:20 1 patch ONCE ONE Administration Protocol <MARY Harp - Last Filed: 02/01/23 17:11> Medical Decision Making Medical Decision Making MDM Narrative: 67-year-old female with a past medical history of bipolar, diabetes, HLD, HTN, liver cirrhosis, goiter, obesity, presenting to the ED complaining of acute on chronic right hip pain x1 week. On exam vital signs stable, NAD, nontoxic appearing, physical exam as above. Concern for arthritic flare vs strain. Low suspicion for septic joint/arthritis, fracture, dislocation, appendicitis or UTI/stone plan: X-rays, pain control Please refer to course for remaining clinical decision making, interpretation of labs/imaging results, and discussions with consultants and/or family members. <MARY Harp Last Filed: 02/01/23 17:11> Differential Diagnosis Differential Diagnoses: The differential diagnosis associated with the presentation includes <MARY Harp Last Filed: 02/01/23 17:11> As above <MARY Harp Last Filed: 02/01/23 17:11> Admission/Observation Consideration of admission/observation: Escalation of care including admission/observation considered <MARY Harp - Last Filed: 02/01/23 17:11> Lab Data MDM Lab Attestation statement: I reviewed the patient's lab results. <MARY Harp - Last Filed: 02/01/23 17:11> Radiology Impression Discussion of test interpretation with radiology: I have reviewed the radiologist's reading. <MARY Harp - Last Filed: 02/01/23 17:11> External Record Review External record reviewed: Inpatient record, Office record, Outpatient record, Prior outpatient labs, Prior outpatient radiology, Primary care record and Outside ED record <MARY Harp - Last Filed: 02/01/23 17:11> Discharge Plan Discharge Clinical Impression: Chronic hip pain <MARY Medellin - Last Filed: 02/01/23 14:37> Patient Disposition: Home, Self-Care <MARY Medellin - Last Filed: 02/01/23 14:37> Instructions: Hip Pain (ED) <MARY Medellin - Last Filed: 02/01/23 14:37> Additional Instructions: x-ray does not show any fractures. You do have uterine tumors that were noted on x-ray that are also seen on CT scan from 2020 continue taking previously prescribed medications. In addition Flexeril as a muscle relaxer, take at night as it makes you drowsy. Lidoderm patches or numbing patches, apply to painful area Follow-up with her doctor La radiograf?a no muestra ninguna fractura. Tiene tumores uterinos que se observaron en makayla radiograf?a que tambi?n se observaron en makayla tomograf?a computarizada a partir de 2020 seguir tomando los medicamentos prescritos anteriormente. Adem?s Flexeril asha relajante muscular, t?hawa por la noche ya que te produce somnolencia. Parches de lidodermo o parches anest?sicos, aplicar en el ?arlet dolorida Seguimiento con alva m?dico <MARY Medellin - Last Filed: 02/01/23 14:37> Prescriptions: New lidocaine [Lidoderm] 5 % adhesive patch,medicated 1 patch topical DAILY MDD remove after 12 hours PRN (Reason: pain) Qty: 30 0RF Rx Instructions: leave on most painful area for up to 12 hrs cyclobenzaprine 5 mg tablet 5 mg PO Q8H PRN (Reason: pain (scale score 7-10)) 5 Days Qty: 14 0RF No Action ibuprofen 800 mg tablet 800 mg PO Q8H PRN (Reason: pain) 30 Days Qty: 90 3RF Tresiba FlexTouch U-200 200 unit/mL (3 mL) insulin pen 85 unit subcut DAILY Qty: 9 5RF glucose 4 gram tablet,chewable 4 g PO Q15M PRN (Reason: hypoglycemia) Qty: 30 5RF Rx Instructions: until symptoms of low blood sugar are controlled (DME) FreeStyle Lite Strips Strip See Rx Instructions .MEDSUPPLY Qty: 100 6RF Rx Instructions: 3 times a day meloxicam 7.5 mg tablet 7.5 mg PO DAILY Qty: 30 3RF (DME) pen needle, diabetic [BD Edilia 2nd Gen Pen Needle] 32 gauge x /32 needle See Rx Instructions .MEDSUPPLY Qty: 400 4RF Rx Instructions: 5 times a day Jardiance 10 mg tablet See Rx Instructions .ROUTE .COMPLEX Qty: 30 4RF Dose Instruction: TOME MAKAYLA TABLETA TODOS LOS BARLOW Rx Instructions: TOME MAKAYLA TABLETA TODOS LOS BARLOW (DME) lancets [FreeStyle Lancets] 28 gauge misc See Rx Instructions .Route Qty: 100 4RF Rx Instructions: As directed-tests 3 X/day Ozempic 2 mg/dose (8 mg/3 mL) pen injector 2 mg subcut QWEEK Qty: 3 5RF polyvinyl alcohol [Artificial Tears (polyvin alc)] 1.4 % drops 1 drp ophthalmic (eye) BID nortriptyline 75 mg capsule 75 mg PO BEDTIME zolpidem [Ambien] 5 mg Tablet 5 mg PO BEDTIME atorvastatin 20 mg tablet 20 mg PO BEDTIME aspirin 81 mg tablet,delayed release (DR/EC) 1 tab PO DAILY acetaminophen 500 mg tablet 1 - 2 tab PO Q8H PRN (Reason: pain) fluphenazine decanoate 25 mg/mL solution 50 mg IM Q3W lisinopril 10 mg tablet 10 mg PO DAILY benztropine 1 mg tablet 1 mg PO BID omeprazole 20 mg capsule,delayed release(DR/EC) 20 mg PO DAILY letrozole [Femara] 2.5 mg tablet 2.5 mg PO DAILY Qty: 90 3RF alcohol swabs Pads, Medicated 1 pad topical QID insulin aspart U-100 [Novolog FlexPen U-100 Insulin] 100 unit/mL (3 mL) insulin pen 20 unit subcut TID (DME) FreeStyle Anahy 2 Sensor Kit See Rx Instructions .Route Rx Instructions: As directed (DME) FreeStyle Anahy 2 Seltzer Misc See Rx Instructions .Route Rx Instructions: As directed <MARY Medellin - Last Filed: 02/01/23 14:37> Referrals: Name,MD Gopi [Primary Care Provider] - <MARY Medellin - Last Filed: 02/01/23 14:37> Print Language: Lithuanian <MARY Medellin - Last Filed: 02/01/23 14:37>
[2023-02-01] MEDS: Lidocaine 4 % Patch ADH..PATCH 1 PATCH TRANSDERMA (16:46)
[2023-02-01] MEDS: Ketorolac Tromethamine 30 MG/ML VIAL IM (16:48)
== END 2023-02-01 17:25 | disposition home or self-care (01) ==
PROVIDERS: Emergency Provider Emergency Medicine Emergency Medical Services; PCP Internal Medicine Geriatric Medicine
DX: G89.29 Other chronic pain (principal); M25.551 Pain in right hip; R93.41 Abnormal radiologic findings on diagnostic imaging of renal pelvis, ureter, or bladder; D25.9 Leiomyoma of uterus, unspecified; E11.9 Type 2 diabetes mellitus without complications; I10 Essential (primary) hypertension; E78.5 Hyperlipidemia, unspecified; K74.60 Unspecified cirrhosis of liver; Z87.891 Personal history of nicotine dependence; Z79.82 Long term (current) use of aspirin; Z79.02 Long term (current) use of antithrombotics/antiplatelets; Z79.899 Other long term (current) drug therapy; Z79.4 Long term (current) use of insulin
CPT/HCPCS: 73502; 96372; 99283; 99284; J1885

== ENCOUNTER → 2023-02-22 14:00 | Outpatient (BNVA) | payer MEDICARE, MEDICAID, SELFPAY | PROVIDERS: Visit Provider Registered Nurse Diabetes Educator | DX: E11.21 Type 2 diabetes mellitus with diabetic nephropathy (principal) | CPT/HCPCS: 99211 ==

== ENCOUNTER 2023-03-11 14:03 | Outpatient (REF) | payer MEDICARE, MEDICAID, SELFPAY ==
--- NOTE | ~2023-03-11 | XR_ITS ---
EXAMINATION: XR LUMBAR SPINE XR SACROILIAC JOINT COMPARISON: None available. TECHNIQUE: Lumbar spine 7 views. SI joints 3 views. FINDINGS: SI JOINT: There is normal symmetrical SI joints without any lytic or sclerotic process. No bony abnormality seen involving sacrum or the pelvic bones. LUMBAR SPINE: There is normal lumbar lordosis. The vertebral heights and alignment is normal. There is loss of L2-L3 and L3-L4 disc heights with mild ventral spondylosis L3-L4 disc level. On oblique views, no pars defect or lytic process seen. On lateral flexion view there is grade 1 anterolisthesis L4 over L5, with normal alignment on extension. No visible acute fracture, dislocation or lytic process seen. The paravertebral soft tissues are normal. No gross bony abnormality seen. No lytic process. XR/XR lumbar spine 6V w bending IMPRESSION: 1. Unremarkable SI joints. 2. Grade 1 anterolisthesis L4 over L5 on lateral flexion view. No pars defect or lytic process seen. There are degenerative disc changes L2-L3 and L3-L4 disc levels with mild ventral spondylosis. No visible acute fracture or dislocation seen.
--- NOTE | ~2023-03-11 | XR_ITS ---
EXAMINATION: XR LUMBAR SPINE XR SACROILIAC JOINT COMPARISON: None available. TECHNIQUE: Lumbar spine 7 views. SI joints 3 views. FINDINGS: SI JOINT: There is normal symmetrical SI joints without any lytic or sclerotic process. No bony abnormality seen involving sacrum or the pelvic bones. LUMBAR SPINE: There is normal lumbar lordosis. The vertebral heights and alignment is normal. There is loss of L2-L3 and L3-L4 disc heights with mild ventral spondylosis L3-L4 disc level. On oblique views, no pars defect or lytic process seen. On lateral flexion view there is grade 1 anterolisthesis L4 over L5, with normal alignment on extension. No visible acute fracture, dislocation or lytic process seen. The paravertebral soft tissues are normal. No gross bony abnormality seen. No lytic process. XR/XR sacroiliac joint min 3V IMPRESSION: 1. Unremarkable SI joints. 2. Grade 1 anterolisthesis L4 over L5 on lateral flexion view. No pars defect or lytic process seen. There are degenerative disc changes L2-L3 and L3-L4 disc levels with mild ventral spondylosis. No visible acute fracture or dislocation seen.
== END 2023-03-11 14:04 | disposition home or self-care (01) ==
LOC: HO.XRAY 14:03
PROVIDERS: PCP Internal Medicine Geriatric Medicine; Visit Provider Nurse Practitioner Family
DX: M47.816 Spondylosis without myelopathy or radiculopathy, lumbar region (principal); M53.3 Sacrococcygeal disorders, not elsewhere classified; M25.551 Pain in right hip
CPT/HCPCS: 72114; 72202; 99202

== ENCOUNTER 2023-05-04 08:48 | Outpatient (REF) | payer MEDICARE, MEDICAID, SELFPAY ==
--- NOTE | ~2023-05-04 | FL_ITS ---
EXAMINATION: XR FLUOROSCOPY WITH IMAGES CLINICAL INFORMATION: Pain COMPARISON: None available. TECHNIQUE: Fluoroscopy Supervised By: Dr. Valdez. Fluoroscopy Time: 0.1 minutes. Cumulative Dose: 1.82 mGy. DAP: 0.419 Gycm2. Images: 2. FINDINGS: Needle placed x2 over the iliac crest with injection of contrast. FL/FL guidance in treatment room IMPRESSION: Fluoroscopy for pain management procedure.
== END 2023-05-04 08:49 | disposition home or self-care (01) ==
LOC: CF 08:48
PROVIDERS: Visit Provider Internal Medicine
DX: G58.8 Other specified mononeuropathies (principal); M25.551 Pain in right hip
CPT/HCPCS: 64450; J2795

== ENCOUNTER 2023-05-23 13:15 | Outpatient (REF) | payer MEDICARE, MEDICAID, SELFPAY ==
--- NOTE | ~2023-05-23 | XR_ITS ---
EXAMINATION: XR SHOULDER, LEFT CLINICAL INFORMATION: Pain left shoulder. COMPARISON: None available. TECHNIQUE: AP external rotation, Grashey, scapular Y, and axillary views of the left shoulder. FINDINGS: There is mild loss of AC and glenohumeral joint space with minimal periarticular spurring. No visible acute fracture, dislocation or subluxation seen. The soft tissues are normal. XR/XR shoulder LT min 2V IMPRESSION: Mild degenerative changes left shoulder joint. No visible acute fracture, dislocation or subluxation seen.
== END 2023-05-23 13:16 | disposition home or self-care (01) ==
LOC: HO.XRAY 13:15
PROVIDERS: PCP Internal Medicine Geriatric Medicine; Visit Provider Nurse Practitioner Family
DX: M25.512 Pain in left shoulder (principal); M47.816 Spondylosis without myelopathy or radiculopathy, lumbar region; G58.8 Other specified mononeuropathies
CPT/HCPCS: 73030; 99212

== ENCOUNTER 2023-05-23 13:15 | Outpatient (AMB) | payer MEDICARE, MEDICAID, SELFPAY ==
--- NOTE | 2023-05-23 13:21 | MHC.OFFVIS ---
Intake Vital Signs 05/23/23 13:26 Height 5 ft 2 in Weight 183 lb BMI 33.5 BP 102/51 L Blood Pressure Location Rt brachial Position Sitting Pulse 82 Pulse Source Pulse Oximeter Pulse Oximetry (%) 98 Oxygen Delivery Method Room Air Intake Visit Reasons: RIGHT DIAGNOSTIC CLUNEAL NERVE BLOCK Intake Note: Pain today 0/10. Reconsignment Clerk Required: Yes Reconsignment Clerk Language: Reverse Unit Operator Name: Eve #[id number] Accompanied by: Self / Same As Patient Allergies metformin [METFORMIN] Allergy (Intermediate, Verified 05/23/23 13:27) ELEVATED LIVER ENZYMES, liver damage HPI HPI Comments History of Present Illness Details Patient presents today to assess response to Right Diagnostic Cluneal Nerve Block on 05/04/[address] Valdez. Patient reports ongoing 100% pain relief in her right upper buttock, low back and lateral hip area with significant improvement in tolerance with standing, movements, changing positions and sleep. Patient reports her new pain generator is now left shoulder pain with decreased range of motion, pain with overhead reaches and use of left arm and inability to sleep on left side of the shoulder. Denies any recent trauma, injury or falls. Patient requests cortisone injection into her left shoulder. No imaging is available for left shoulder. She presents with localized tenderness in the anterior aspect of her left shoulder without any swelling, warmth, redness, numbness or paresthesias in left arm or hand. Denies previous shoulder procedure or injections. Past Procedures: 05/04/23: Right Diagnostic Cluneal Nerve Block-100% pain relief PRIOR: Patient is a pleasant 67 years old Chinese speaking female with prior history of bipolar, left breast cancer, diabetes, HLD, HTN, liver cirrhosis, goiter, obesity, right knee OA presents today for initial evaluation of chronic low back pain and acute right hip pain. Denies any recent or past trauma, injury or fall. She was seen in our ED on 02/01/23 and was treated with muscle relaxant and NSAIDs with partial relief. Her back pain is axial and also radiates into the buttocks and right lateral hip. Denies distal right leg radiating pain but reports isolated right hip and right medial knee pain. She describes her pain as constant aching, dull, sore, heavy, stabbing, sharp, spasms, pinching, and tiring. Denies previous spine surgery or injections. Reports of right knee cortisone injections last year but not the right hip. Pain affects her daily activities, sleep and mood. Recent right hip xray was normal and was noted for accidental uterine tumors which were also noted on CT scan from 2020. Most recent A1C is 6.5 as of 12/23. Denies any fever, abdominal pain, numbness or tingling, bladder or chastity incontinence or saddle anesthesia. Reports right lower extremity weakness.?Patient has not completed physical therapy in the past and cannot tolerate PT due to significant pain. 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 Social History Household Members: None Housing: Apartment Do you presently have visiting nurse or other home services: Yes ([facility] ) Alcohol intake: never Patient Tobacco Use Status: Former Tobacco user Quit Date: >30 YRS AGO Second Hand Smoke Exposure: No service: No Current occupational status: unemployed Current occupation: rt handed Review of Systems Const All systems reviewed & are unremarkable except as noted in HPI and below Reports as per HPI, Denies body aches, Denies chills, Reports difficulty sleeping (on left side due to shoulder pain), Denies fever(s), Denies frequent falls, Denies headache(s), Denies weakness and Denies weight loss ENT Denies headache(s) and Denies neck pain Card Denies dyspnea on exertion Resp Denies cough and Denies dyspnea on exertion Musc Reports as per HPI, Reports arthralgias, Denies joint swelling, Reports limited range of motion, Denies neck pain, Denies numbness, Denies radiating pain into limb, Reports stiffness and Denies tingling Neuro Denies frequent falls, Denies headache(s), Denies numbness, Denies tingling and Denies weakness Physical Exam Vital Signs: Last Vital Signs Pulse 82 05/23/23 13:26 BP 102/51 L 05/23/23 13:26 Pulse Ox 98 05/23/23 13:26 Oxygen Delivery Method Room Air 05/23/23 13:26 BMI result Body Mass Index 33.5 General: Appears afebrile. Alert and oriented. Mood and affect appropriate. Follows and participates in conversation appropriately. Respiratory effort is unlabored. No cough. Able to transition from sit to stand unassisted. Ambulates with bilaterally normal heel strike and toe off. Neck Neck: Yes full ROM, Yes no lymphadenopathy, Yes supple, No anterior neck swelling and Yes no JVD Back/Spine/Pelvis Cervical Spine: cervical ROM normal, loss of normal cervical lordosis and No Cervical spine tenderness Thoracic/Lumbar Spine: thoracic and lumbar spine normal to inspection, No Thoracic/lumbar spine scar(s), Lasegue's sign negative, straight leg raise negative bilaterally, pain with thoraco-lumbar ROM, paraspinal muscle tenderness on the right greater than left, No thoracic spinal tenderness and lumbar spinal tenderness at L4 and at L5 Pelvis: no buttock tenderness and no sciatic notch tenderness Sacroiliac joints: bilaterally nontender Extrem Left upper extremity: shoulder/upper arm (Limited ROM, pain with overhead or back pocket reaches. 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 Patient is status post Right Diagnostic Cluneal Nerve Block with ongoing 100% pain relief since 07/05/23. 2. For left shoulder pain, will proceed with imaging to assess degree or arthritis and tentatively plan for Left Subacromial shoulder steroid injection with local and fluoroscopy. Most recent A1C is 6.5 as of 12/23. Counseled patient on vigilance in checking and treatment of hyperglycemia following steroid injection. All questions were answered and the patient is in agreement with the treatment plan. Follow up after injections and sooner if needed. Anticoagulation: Patient is on anticoagulant (Aspirin). Instructions provided to hold this for 7 days prior to injection. Justification for interventional therapy: ? Patient with average pain > 6/10 ? Patient has exhausted conservative therapy The risks, consequences, alternatives, and benefits of various treatment options were discussed with the patient in great detail, including conservative management, injections and procedures. Patient was informed of hyperglycemic effects of steroids. Orders: Orders XR shoulder LT min 2V 05/23/23 M25.512 - Pain in left shoulder Coding Level of Care Code Est Pt Level 4 (77410) Diagnoses Left shoulder pain M25.512 Cluneal neuropathy G58.8 Lumbar spondylosis M47.816
[2023-05-23 13:26] VITALS: BP 102/51; PULSE 82; O2SAT 98; BMI 33.5
== END 2023-05-23 13:38 | disposition home or self-care (01) ==
PROVIDERS: PCP Internal Medicine Geriatric Medicine; Visit Provider Nurse Practitioner Family
DX: M25.512 Pain in left shoulder (principal); G58.8 Other specified mononeuropathies; M47.816 Spondylosis without myelopathy or radiculopathy, lumbar region
CPT/HCPCS: 99214

== ENCOUNTER 2023-06-13 13:36 | Outpatient (AMB) | payer MEDICARE, MEDICAID, SELFPAY ==
--- NOTE | 2023-06-13 13:42 | MHC.OFFVIS ---
Intake Vital Signs 06/13/23 13:44 Height 5 ft 2 in BP 130/61 Blood Pressure Location Rt brachial Position Sitting Respiration 14 Pulse 88 Pulse Source Pulse Oximeter Intake Visit Reasons: LEFT SUBACROMIAL SHOULDER INJECTION Allergies metformin [METFORMIN] Allergy (Intermediate, Verified 05/23/23 13:27) ELEVATED LIVER ENZYMES, liver damage HPI LEFT SUBACROMIAL SHOULDER INJECTION HPI Details 67-year-old female presenting today for a left subacromial shoulder steroid injection. Denies any recent cough, cold, infection, fever or other significant changes in medical history since last office visit. 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 Social History Household Members: None Housing: Apartment Do you presently have visiting nurse or other home services: Yes ([facility] ) Alcohol intake: never Patient Tobacco Use Status: Former Tobacco user Quit Date: >30 YRS AGO Second Hand Smoke Exposure: No service: No Current occupational status: unemployed Current occupation: rt handed Review of Systems Const All systems reviewed & are unremarkable except as noted in HPI and below Physical Exam Vital Signs: Last Vital Signs Pulse 88 06/13/23 13:44 Resp 14 06/13/23 13:44 BP 130/61 06/13/23 13:44 General: Appears afebrile. Alert and oriented. Mood and affect appropriate. Follows and participates in conversation appropriately. Respiratory effort is unlabored. Able to transition from sit to stand unassisted. Ambulates with bilaterally normal heel strike and toe off. Office Procedures Joint Injection/Drain Joint Injection/Drain Details: Left subacromial shoulder steroid injection Primary Site: left shoulder Prep: site was prepped using aseptic technique and site was prepped using sterile technique Injected: 40 mg of, Kenalog, with 3 mL of, 0.25% bupivacaine and in the subcromial space (on left side) Approach Used: posterolateral Procedure: The patient tolerated the procedure well Coding 91666 - Acromioclavicular with ultrasound guidance Procedure code (CPT) selection complete Results Reviewed Results Reviewed: 06/13/23 09:00 BUPivacaine MPF 0.5 % [Sensorcaine MPF 0.5% 10 ML] 10 ml .ROUTE .STK-MED ONE Triamcinolone Acetonide [Kenalog-40] 40 mg .ROUTE .STK-MED ONE No imaging is available for review. Assessment & Plan Assessment & Plan (1) Left shoulder pain: Code(s): M25.512 - Pain in left shoulder Plan Patient is status post left subacromial shoulder steroid injection. Patient tolerated procedure well and was discharged home in stable condition with discharge instructions. All questions were answered. We will follow-up in two weeks via telephone or in clinic to assess response to therapy. A follow-up appointment was made during today's visit. Scribed for Dr. Valdez by Jitendra Hough, pesticide use medical coordinator, on 06/13/2023. I, Dr. Valdez, have personally reviewed and agree with the information entered by the scribe. Coding Level of Care Code Procedure Only Diagnoses Left shoulder pain M25.512 CPT Codes Coding - Joint 6: 60790 - Acromioclavicular with ultrasound guidance ([id number])
[2023-06-13 13:44] VITALS: BP 130/61; PULSE 88; RESP 14
== END 2023-06-13 13:56 | disposition home or self-care (01) ==
PROVIDERS: PCP Internal Medicine Geriatric Medicine; Visit Provider Internal Medicine
DX: M25.512 Pain in left shoulder (principal)
CPT/HCPCS: 20606; 20610

== ENCOUNTER → 2023-06-13 13:36 | Outpatient (BNVA) | payer MEDICARE, MEDICAID, SELFPAY | PROVIDERS: PCP Internal Medicine Geriatric Medicine; Visit Provider Internal Medicine | DX: M25.512 Pain in left shoulder (principal) | CPT/HCPCS: 20606; 20610; J3301 ==

== ENCOUNTER 2023-08-01 13:18 | Outpatient (AMB) | payer MEDICARE, MEDICAID, SELFPAY ==
[2023-08-01 13:24] VITALS: BP 114/62; PULSE 105; BMI 33.7
--- NOTE | 2023-08-01 13:24 | A.OFFVIS_ITS ---
Intake Vital Signs 08/01/23 13:24 Height 5 ft 2 in Weight 184 lb 8.43 oz BMI 33.7 BP 114/62 Blood Pressure Location Lt brachial Position Sitting Pulse 105 H Pulse Source Pulse Oximeter Intake Visit Reasons: DM Intake Note: Patient presents today to follow up on Type 2 Diabetes Mellitus. Patient receives DME supplies through: Last Diabetic Eye exam:12/2020 Last Podiatry Visit: 07/2023 Random Glucose: 93 3mg/dl HgA1C:6.4% Manufacturing Production Manager Required: Yes Manufacturing Production Manager Language: Airport Screener Name: Aleksandra medical staff Information Interpreted: non-clinical & clinical Accompanied by: Self / Same As Patient Allergies metformin [METFORMIN] Allergy (Intermediate, Verified 08/01/23 13:30) ELEVATED LIVER ENZYMES, liver damage HPI HPI Comments History of Present Illness Details 67 yo female , today for follow-up visit, for diabetes management and management of MNG. She is feeling well. The [place] download from 12/04/22-12/17/22 shows point cares that range from 98 to 153 She is Currently on Tresiba 85 units in the morning, Humalog 20 units TID, . Ozempic 2 mg weekly she is tolerating well.Jardiance 10 mg QD Glucometer download does not display any blood sugars over last 2 weeks Has hypoglycemia 3 X/wk She had oophorectomy on december 2019.. She has left breast cancer, she had lumpectomy , she completed radiotherapy. She has Past medical history of insomnia, schizophrenia, hyperlipidemia, vitiligo, Bobbi's disease, she has a NTMNG, she had right thyroid nodule and isthmus nodule FNA benign on 2015. She had fine-needle aspiration on 11/27/2020 right lower pole nodule, consistent with benign follicular nodule [place] category 2. She has diabetes mellitus type 2 diagnosed September 21, 2003. She has nephropathy but no other microvascular or macrovascular disease. No hypoglycemia Very rare hypoglycemia Last ophthalmology evaluation: Needs to make appt . no retinopathy. Positive nocturia 2 times, polydipsia, increased appetite. she denies numbness, tingling, blurred vision. She has seen a certified breastfeeding educator several times She had repeated US 09/09/2020 Right Thyroid Lobe: 3.3 x 1.9 x 1.7 cm, volume 5.6 mL. Previously 3.7 x 1.8 x 1.7 cm, volume 5.7 mL. Parenchyma: The gland echotexture is homogeneous. Thyroid vascularity is normal. Left Thyroid Lobe: 3.3 x 1.6 x 1.8 cm, volume 4.9 mL. Previously 2.9 x 1.4 x 1.1 cm, volume 3.2 mL. Parenchyma: The gland echotexture is heterogeneous. Thyroid vascularity is normal. Isthmus: 0.6 cm in maximum AP dimension. Previously 0.9 cm. RIGHT THYROID LOBE: There is 1 nodule seen. 1. Location: Mid. Size: 1.7 x 1.6 x 1.4 cm. Previous: 1.3 x 1.4 x 1.6 cm. Nodule characteristics: Complex cystic and solid nodule with smooth circumscribed margins and intranodular flow but no microcalcification. ISTHMUS: There is 1 nodule seen. 1. Location: Left. Size: 0.5 x 0.4 x 0.4 cm. This nodule is new. Nodule characteristics: Hypoechoic smoothly marginated nodule with no intranodular flow or microcalcification. LEFT THYROID LOBE: There is 1 nodule seen. 1. Location: Superior. Size: 0.3 x 0.2 x 0.3 cm. This nodule is new. Nodule characteristics: Hypoechoic smoothly marginated nodule with no intranodular flow or microcalcification. NODES: No lymphadenopathy is seen in the tissue surrounding the thyroid gland. Laboratory Tests 12/11/20 12/12/20 12/12/20 13:24 09:00 09:00 Hgb Hct Sodium Potassium Creatinine Estimated GFR POC Glucose Hgb A1c (Clinic) 8.3 H Calcium Albumin Ur 24 Hour Volume 2250 Ur Creatinine mg/d L 55.54 Ur Creatinine 24 H our 1.33 Ur Calcium 24 Hr 333 H Calcium/Creat 24 H r 251 03/02/21 03/03/21 03/03/21 14:50 05:18 05:18 Hgb 11.0 L Hct 34.4 L Sodium 138 Potassium 4.0 Creatinine 0.70 Estimated GFR > 60 POC Glucose Hgb A1c (Clinic) Calcium 9.5 D Albumin 4.3 Ur 24 Hour Volume Ur Creatinine mg/d L Ur Creatinine 24 H our Ur Calcium 24 Hr Calcium/Creat 24 H r 03/04/21 10:56 Hgb Hct Sodium Potassium Creatinine Estimated GFR POC Glucose 125 H Hgb A1c (Clinic) Calcium Albumin Ur 24 Hour Volume Ur Creatinine mg/d L Ur Creatinine 24 H our Ur Calcium 24 Hr Calcium/Creat 24 H r Laboratory Tests 11/13/19 11/13/19 08/27/20 10:30 10:30 10:13 Hgb Hct Sodium Potassium Creatinine Estimated GFR Glucose (Clinic) 178 H Fasting Glucose Hgb A1c (Clinic) Calcium Ionized Calcium AST ALT Alkaline Phosphata se Alk Phos Bone Spec ific Albumin Triglycerides 181 Cholesterol 143 LDL Cholesterol Di rect 64 LDL Cholesterol, C alc 60 HDL Cholesterol 47 25-OH Vitamin D To madhu 1,25 Dihydroxy Vit D TSH Free T4 PTH Intact Calcium (PTH Intac t) PTH Related Protei n 08/27/20 08/27/20 08/27/20 11:15 11:15 11:15 Hgb Hct Sodium 135 Potassium 4.5 Creatinine 0.80 Estimated GFR > 60 Glucose (Clinic) Fasting Glucose 164 H Hgb A1c (Clinic) Calcium 10.0 Ionized Calcium 5.5 AST 35 H D ALT 55 H Alkaline Phosphata se 173 H Alk Phos Bone Spec ific 38.8 H Albumin 4.3 Triglycerides Cholesterol LDL Cholesterol Di rect LDL Cholesterol, C alc HDL Cholesterol 25-OH Vitamin D To madhu 24.3 1,25 Dihydroxy Vit D 65 TSH 3.49 Free T4 0.92 PTH Intact 63 Calcium (PTH Intac t) 10.2 PTH Related Protei n 12 L 08/27/20 08/27/20 11:15 15:49 Hgb 14.1 Hct 43.2 Sodium Potassium Creatinine Estimated GFR Glucose (Clinic) Fasting Glucose Hgb A1c (Clinic) 7.6 H Calcium Ionized Calcium AST ALT Alkaline Phosphata se Alk Phos Bone Spec ific Albumin Triglycerides Cholesterol LDL Cholesterol Di rect LDL Cholesterol, C alc HDL Cholesterol 25-OH Vitamin D To madhu 1,25 Dihydroxy Vit D TSH Free T4 PTH Intact Calcium (PTH Intac t) PTH Related Protei n PFSH Medical History Bipolar disorder Colitis Diabetes mellitus Diabetes type 2, uncontrolled Diabetic nephropathy associated with type 2 diabetes mellitus Dyslipidemia Fever of unknown origin Hirsutism History of left breast cancer HTN (hypertension) Hypercalcemia Hyperlipidemia Hypertension 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 Social History Household Members: None Housing: Apartment Do you presently have visiting nurse or other home services: Yes ([facility] ) Alcohol intake: never Patient Tobacco Use Status: Former Tobacco user Quit Date: >30 YRS AGO Second Hand Smoke Exposure: No service: No Current occupational status: unemployed Current occupation: rt handed Physical Exam Vital Signs: Last Vital Signs Pulse 105 H 08/01/23 13:24 BP 114/62 08/01/23 13:24 BMI result Body Mass Index 33.7 Absence of Cushingoid features. Absence of acromegalic features. Neck exam reveals nl size thyroid about 15 gms. No thyroid nodules palpable. No carotid bruits present. Lungs CTA. Heart S1 S2, Reg R/R. No M/R/ G. Skin exam reveals absence of vitiligo or acanthosis nigricans. Abdominal exam reveals Soft NT/ND with NA BS. No organomegaly present. Neck Other: . Extrem Other: Visual exam of foot performed. No ulcerations or open lesions. No onchomycosis, no callouses.Pulses 2 + distally Sensation intact to monofilament exam. Vibratory sensation sensed is decreased with 128 Hz tuning fork Results AMB Hemoglobin A1c AMB Hemoglobin A1c 6.4 % Last Edit by Geovanna Cavanaugh on 08/01/23 13:58 Results Reviewed Results Reviewed: 08/01/23 13:34 Glucose, Whole Blood Routine Laboratory Last Values Glucose (Clinic) 93 mg/dL (60-115) 08/01/23 13:34 Hgb A1c (Clinic) 6.4 % (4.0-6.0) H 08/01/23 13:38 Assessment & Plan Assessment & Plan (1) Diabetic nephropathy associated with type 2 diabetes mellitus: Code(s): E11.21 - Type 2 diabetes mellitus with diabetic nephropathy (2) Diabetes type 2, uncontrolled: Code(s): E11.65 - Type 2 diabetes mellitus with hyperglycemia Plan: This is a 67-year-old [place] female with a history of type 2 diabetes being treated with basal-bolus insulin as well as Ozempic with good glycemic control and known microvascular complications namely microalbuminuria. Plan is continue the current regimen. (3) Multinodular goiter (nontoxic): Code(s): E04.2 - Nontoxic multinodular goiter Plan Status post FNA of right mid-lower pole nodule twice with benign cytology. Appears clinically euthyroid. Thyroid ultrasound showed stability in the size of the nodules. Plan is to follow with serial ultrasounds and check an ultrasound about 2-3 years time . Orders: Orders AMB Hemoglobin A1c Today E11.21 - Type 2 diabetes mellitus with diabetic nephropathy Lipid Panel Today E11.65 - Type 2 diabetes mellitus with hyperglycemia Microalbumin, Random (w Creat) Today E11.65 - Type 2 diabetes mellitus with hyperglycemia Coding Level of Care Code Est Pt Level 4 (79107) Diagnoses Diabetic nephropathy associated with type 2 diabetes mellitus E11.21 Diabetes type 2, uncontrolled E11.65 Multinodular goiter (nontoxic) E04.2
[2023-08-01 13:38] LABS: Glucose, Whole Blood 93 mg/dL (60-115)
== END 2023-08-01 13:49 | disposition home or self-care (01) ==
PROVIDERS: PCP Internal Medicine Geriatric Medicine; Referring Provider Internal Medicine Geriatric Medicine; Visit Provider Internal Medicine Endocrinology, Diabetes & Metabolism
DX: E11.21 Type 2 diabetes mellitus with diabetic nephropathy (principal); E11.65 Type 2 diabetes mellitus with hyperglycemia; E04.2 Nontoxic multinodular goiter
CPT/HCPCS: 99214

== ENCOUNTER → 2023-08-01 13:18 | Outpatient (BNVA) | payer MEDICARE, MEDICAID, SELFPAY | PROVIDERS: Visit Provider Internal Medicine Endocrinology, Diabetes & Metabolism | DX: E11.65 Type 2 diabetes mellitus with hyperglycemia (principal); E11.21 Type 2 diabetes mellitus with diabetic nephropathy; E04.2 Nontoxic multinodular goiter; Z79.4 Long term (current) use of insulin | CPT/HCPCS: 82947; 83036; 99212 ==

== ENCOUNTER 2023-09-26 08:15 | Outpatient (REF) | payer MEDICARE, MEDICAID, SELFPAY ==
--- NOTE | ~2023-09-26 | US_ITS ---
EXAMINATION: US COMPLETE ABDOMEN WITH LIVER ELASTOGRAPHY CLINICAL INFORMATION: Hepatic cirrhosis. COMPARISON: None available. TECHNIQUE: Real-time imaging of the abdominal viscera. Noninvasive ultrasound liver fibrosis assessment is performed using [employer] ElastPQ point quantification shear wave elastography (2D-SWE) with a C5-2 MHz transducer. Multiple elastography samples are obtained. FINDINGS: PANCREAS: Normal. The visualized pancreatic head and body are normal in appearance. The remainder of the pancreas is obscured from visualization by the overlying bowel gas. ABDOMINAL AORTA: The proximal, middle, and distal aortic segments are normal in caliber. INFERIOR VENA CAVA: Visualized portions are normal. LIVER: The liver demonstrates normal size, a lobulated contour and generally increased echogenicity. No focal lesion or intrahepatic biliary duct dilatation. The right lobe measures 16.2 cm in length. The left lobe measures 10.0 cm in length. Portal flow is towards the liver (hepatopetal). Shear wave liver elastography median stiffness is 1.42 m/s (reference: normal median stiffness is 1.3 m/s or less). IQR/median stiffness to assess sampling precision is 0.3 (reference: good quality data set is IQR/median stiffness of 0.15 or less). GALLBLADDER: Surgically absent. COMMON BILE DUCT: Normal in caliber measuring 0.8 cm in diameter. RIGHT KIDNEY: Normal. There is mild pelviectasis, without uriel hydronephrosis. No renal calculi or focal parenchymal lesions. The kidney measures 12.0 cm in maximum dimension. LEFT KIDNEY: At the interpolar aspect, a 6 mm benign, simple cyst is seen, which require no imaging follow-up. There is mild pelviectasis, without uriel hydronephrosis. No renal calculi or focal parenchymal lesions. The kidney measures 12.0 cm in maximum dimension. SPLEEN: Normal. The spleen measures 12.5 cm in maximum dimension. Perisplenic varices are noted. FREE FLUID: None. US/US abdomen comp w elastography IMPRESSION: 1. Consistent with the provided history of cirrhosis, there is increase in hepatic echotexture and a lobulated hepatic contour. No focal hepatic mass or intrahepatic biliary ductal dilatation is seen. 2. Liver elastography: In the absence of other known clinical signs, measurements rule out compensated advanced chronic liver disease. If there are known clinical signs, further testing may be needed for confirmation. 3. Perisplenic varices are noted. REFERENCE: Society of Radiologists in Ultrasound Liver Stiffness Thresholds (2020): LIVER STIFFNESS THRESHOLDS: *Liver Stiffness equal or less than 1.3 m/s: High probability of being normal. *Liver Stiffness less than 1.7 m/s: In the absence of other known clinical signs, rules out compensated advanced chronic liver disease. *Liver Stiffness 1.7-2.1 m/s: Suggestive of compensated advanced chronic liver disease but need further test for confirmation. *Liver Stiffness over 2.1 m/s: Rules in compensated advanced chronic liver disease. *Liver Stiffness over 2.4 m/s: Suggestive of clinically significant portal hypertension. QUALITY OF DATA SET: *IQR/Median value equal or less than 0.15 implies a quality data set. *IQR/Median value over 0.15 implies a poor quality data set. SIGNIFICANT CHANGE FROM PRIOR EXAM: Significant change if liver stiffness measurement is 10% or greater from prior exam. OTHER CONSIDERATIONS: The stage of liver fibrosis may be overestimated in the setting of acute hepatitis, liver inflammation, elevated liver function tests, hepatic vascular congestion, obstructive cholestasis, non-fasting state, and infiltrative diseases such as amyloidosis and lymphoma. In some patients with NAFLD, the liver stiffness thresholds for compensated advanced chronic liver disease may be lower. In causes other than viral hepatitis and NAFLD, liver stiffness thresholds are not well established.
[2023-09-26 08:38] LABS: MANUAL DIFF FLAG NO
[2023-09-26 08:41] LABS: Basophils Percent Auto 0.5 % (0-2); Eosinophils Percent Auto 0.7 % (0-4); Hematocrit 40.9 % (37.0-47.0); Hemoglobin 13.3 g/dl (12.0-16.0); Imm Gran Pct Auto 0.2 % (0.0-0.4); Lymphocytes Percent Auto 15.6 % (20-40); Mean Corpuscular HGB Conc 32.5 g/dl (31.0-35.0); Mean Corpuscular Volume 79.9 fL (80.0-98.0); Mean Platelet Volume 10.1 fL (9.4-12.3); Platelet Count 198 X10*3/uL (160-400); Red Blood Count 5.12 X10*6/uL (4.20-5.50); Red Cell Distribution Width 14.7 % (11.0-16.0); White Blood Count 8.3 X10*3/uL (4.8-10.8)
[2023-09-26 08:42] LABS: Eosinophils Absolute Auto 0.1 X10*3/uL (0.0-0.4); Imm Gran Abs Auto 0.02 X10*3/uL (0.00-0.03); Lymphocytes Absolute Auto 1.3 X10*3/uL (1.2-4.9); Monocytes Absolute Auto 0.5 X10*3/uL (0.1-1.2); Neutrophils Absolute Auto 6.4 x10*3/uL (2.0-8.3)
[2023-09-26 08:49] LABS: Prothrombin Time 12.3 SEC (11.1-13.3)
[2023-09-26 10:29] LABS: Alanine Aminotransferase 33 U/L (0-31); Albumin Level 4.1 g/dL (3.5-5.0); Alkaline Phosphatase 133 U/L (39-117); Aspartate Amino Transferase 22 U/L (5-31); Bilirubin Direct 0.3 mg/dL (0.0-0.5); Bilirubin Total 0.6 mg/dL (0.0-1.0); Total Protein 7.4 g/dL (6.5-8.0)
[2023-09-30 00:23] LABS: FIB-ALT 28 U/L (6-29); FIB-Alpha-2-Macroglobulin 291 mg/dL (106-279); FIB-Apolipoprotein A1 178 mg/dL (101-198); FIB-GGT 86 U/L (3-65); FIB-Haptoglobin 193 mg/dL (43-212); FIB-Total Bilirubin 0.8 mg/dL (0.2-1.2); Liver Fibrosis Score 0.48; Liver Fibrosis Stage F1-F2; Nec Inflam Act Grade A0; Nec Inflam Act Score 0.17
== END 2023-09-26 08:16 | disposition home or self-care (01) ==
LOC: HO.US 08:15
PROVIDERS: PCP Internal Medicine Geriatric Medicine; Visit Provider Internal Medicine Gastroenterology
DX: K74.60 Unspecified cirrhosis of liver (principal)
CPT/HCPCS: 36415; 76705; 76981; 80076; 81596; 85025; 85610

== ENCOUNTER 2023-11-17 10:53 | Outpatient (REF) | payer MEDICARE, MEDICAID, SELFPAY ==
[2023-11-17 13:41] LABS: Alanine Aminotransferase 39 U/L (0-31); Albumin Level 4.1 g/dL (3.5-5.0); Alkaline Phosphatase 154 U/L (39-117); Anion Gap 13 (12-20); Aspartate Amino Transferase 34 U/L (5-31); Bilirubin Total 0.7 mg/dL (0.0-1.0); Blood Urea Nitrogen 16 mg/dL (9-16); Calcium 10.7 mg/dL (8.4-10.2); Carbon Dioxide 25 mmol/L (22-29); Chloride 105 mmol/L (96-108); Cholesterol 137 mg/dL (<200); Estimated Glomerular Filt Rate > 60; Glucose Random 128 mg/dL (60-115); HDL Cholesterol 58 mg/dL (>40); LDL Cholesterol Calculated 63 mg/dL (<100); Potassium 4.7 mmol/L (3.3-5.1); Sodium 138 mmol/L (135-145); Total Protein 8.3 g/dL (6.5-8.0); Triglycerides 84 mg/dL (<150)
== END 2023-11-17 10:54 | disposition home or self-care (01) ==
LOC: HO.HHCL 10:53
PROVIDERS: Visit Provider Internal Medicine Geriatric Medicine
DX: E11.69 Type 2 diabetes mellitus with other specified complication (principal); I10 Essential (primary) hypertension
CPT/HCPCS: 36415; 80053; 80061; 85025

== ENCOUNTER 2023-11-23 09:44 | Outpatient (REF) | payer MEDICARE, MEDICAID, SELFPAY ==
[2023-11-23 11:29] LABS: MANUAL DIFF FLAG NO
[2023-11-23 11:40] LABS: White Blood Count 6.6 X10*3/uL (4.8-10.8)
[2023-11-23 11:41] LABS: Basophils Absolute Auto 0.1 X10*3/uL (0.0-0.2); Basophils Percent Auto 0.9 % (0-2); Eosinophils Absolute Auto 0.1 X10*3/uL (0.0-0.4); Hematocrit 42.2 % (37.0-47.0); Hemoglobin 13.4 g/dl (12.0-16.0); Imm Gran Abs Auto 0.02 X10*3/uL (0.00-0.03); Imm Gran Pct Auto 0.3 % (0.0-0.4); Lymphocytes Absolute Auto 1.6 X10*3/uL (1.2-4.9); Lymphocytes Percent Auto 23.9 % (20-40); Mean Corpuscular HGB Conc 31.8 g/dl (31.0-35.0); Mean Corpuscular Volume 78.7 fL (80.0-98.0); Monocytes Absolute Auto 0.5 X10*3/uL (0.1-1.2); Monocytes Percent Auto 7.6 % (2-11); Neutrophils Absolute Auto 4.3 x10*3/uL (2.0-8.3); Neutrophils Percent Auto 65.3 % (45-73); Platelet Count 228 X10*3/uL (160-400); Red Blood Count 5.36 X10*6/uL (4.20-5.50); Red Cell Distribution Width 14.9 % (11.0-16.0)
== END 2023-11-23 09:45 | disposition home or self-care (01) ==
LOC: HO.HHCL 09:44
PROVIDERS: Visit Provider Internal Medicine Geriatric Medicine
DX: E11.69 Type 2 diabetes mellitus with other specified complication (principal); I10 Essential (primary) hypertension
CPT/HCPCS: 36415; 85025

== ENCOUNTER 2024-01-27 08:30 | Outpatient (REF) | payer MEDICARE, SELFPAY ==
[2024-01-27 10:04] LABS: Cholesterol 137 mg/dL (<200); HDL Cholesterol 62 mg/dL (>40); LDL Cholesterol Calculated 59 mg/dL (<100); Triglycerides 83 mg/dL (<150)
[2024-01-27 12:56] LABS: Creatinine Urine 78.16 mg/dL; Microalbum/Creatinine Ratio Ur 51.1 ug/mg cr (<30)
== END 2024-01-27 08:31 | disposition home or self-care (01) ==
LOC: HO.LAB 08:30
PROVIDERS: PCP Internal Medicine Geriatric Medicine; Visit Provider Internal Medicine Endocrinology, Diabetes & Metabolism
DX: E11.65 Type 2 diabetes mellitus with hyperglycemia (principal)
CPT/HCPCS: 36415; 80061; 82043; 82570

== ENCOUNTER 2024-01-31 13:35 | Outpatient (AMB) | payer MEDICARE, MEDICAID, SELFPAY ==
[2024-01-31 13:37] VITALS: BP 120/60; PULSE 93; BMI 33.2
--- NOTE | 2024-01-31 13:37 | MHC.OFFVIS ---
Intake Vital Signs 01/31/24 13:37 Height 5 ft 2 in Weight 181 lb 10.574 oz BMI 33.2 BP 120/60 Blood Pressure Location Lt brachial Position Sitting Pulse 93 Pulse Source Pulse Oximeter Intake Visit Reasons: DM-confirmed Intake Note: Patient present today to follow up on Type 2 Diabetes Mellitus. Last Diabetic Eye exam: 10/2023 Last Podiatry Visit: 12/2023 Random Glucose: 131 mg/dl HgA1C: 6.4% Tunnel Inspector Required: Yes Tunnel Inspector Language: Carbon Brusher Assembler Name: [facility] medical staff Information Interpreted: non-clinical & clinical Accompanied by: Self / Same As Patient Allergies metformin [METFORMIN] Allergy (Intermediate, Verified 01/31/24 13:44) ELEVATED LIVER ENZYMES, liver damage Medication List - Last Reconciled 01/31/24 by Hai Davis MD acetaminophen 1 - 2 tabs PO Q8H PRN alcohol swabs 1 pad topical QID aspirin 1 tab PO DAILY atorvastatin 20 mg PO BEDTIME benztropine 1 mg PO BID blood sugar diagnostic (FreeStyle Lite Strips) 3 times a day blood-glucose meter (FreeStyle Lite Meter kit) As directed checks 4 X/day cyclobenzaprine 5 mg PO Q8H PRN 5 days empagliflozin (Jardiance) 10 mg PO DAILY flash glucose scanning reader (FreeStyle Anahy 2 [place]) As directed flash glucose sensor (FreeStyle Anahy 2 Sensor kit) As directed change every 14 days fluphenazine decanoate 50 mg IM Q3W glucose 4 grams PO Q15M PRN ibuprofen 800 mg PO Q8H PRN 30 days insulin aspart U-100 (Novolog FlexPen U-100 Insulin aspart) 20 units subcut TID insulin degludec (Tresiba FlexTouch U-200 insulin) 85 units (0.425 mL) subcut DAILY lactulose 10 grams PO DAILY lancets (FreeStyle Lancets) As directed-tests 3 X/day letrozole 2.5 mg PO DAILY lidocaine 5% (Lidoderm) 1 patch topical DAILY PRN MDD remove after 12 hours lisinopril 10 mg PO DAILY meloxicam 7.5 mg PO DAILY nortriptyline 75 mg PO BEDTIME omeprazole 20 mg PO DAILY pen needle, diabetic (BD Edilia 2nd Gen Pen Needle) 5 times a day polyvinyl alcohol 1.4% (Artificial Tears (polyvinyl alcohol)) 1 drp ophthalmic (eye) BID semaglutide (Ozempic) 2 mg (0.75 mL) subcut QWEEK zolpidem (Ambien) 5 mg PO BEDTIME HPI HPI Comments History of Present Illness Details 68 yo female , today for follow-up visit, for diabetes management and management of MNG. She is feeling well. The Anahy download from 12/04/22-12/17/22 shows point cares that range from 98 to 153 She is Currently on Tresiba 85 units in the morning, Humalog 20 units TID, . Ozempic 2 mg weekly she is tolerating well.Jardiance 10 mg QD Anahy download shows she is using the sensor 85% of the time. Average glucose is 139 with G mi of 6.6% and variability 20.9%. 90% range with 10% hyperglycemia and no hypoglycemia Has hypoglycemia 3 X/wk She had oophorectomy on december 2019.. She has left breast cancer, she had lumpectomy , she completed radiotherapy. She has Past medical history of insomnia, schizophrenia, hyperlipidemia, vitiligo, Bobbi's disease, she has a NTMNG, she had right thyroid nodule and isthmus nodule FNA benign on 2015. She had fine-needle aspiration on 11/27/2020 right lower pole nodule, consistent with benign follicular nodule [place] category 2. She has diabetes mellitus type 2 diagnosed September 21, 2003. She has nephropathy but no other microvascular or macrovascular disease. No hypoglycemia Very rare hypoglycemia Last ophthalmology evaluation: Needs to make appt . no retinopathy. Positive nocturia 2 times, polydipsia, increased appetite. she denies numbness, tingling, blurred vision. She has seen a engineering manager electronics several times She had repeated US 09/09/2020 Right Thyroid Lobe: 3.3 x 1.9 x 1.7 cm, volume 5.6 mL. Previously 3.7 x 1.8 x 1.7 cm, volume 5.7 mL. Parenchyma: The gland echotexture is homogeneous. Thyroid vascularity is normal. Left Thyroid Lobe: 3.3 x 1.6 x 1.8 cm, volume 4.9 mL. Previously 2.9 x 1.4 x 1.1 cm, volume 3.2 mL. Parenchyma: The gland echotexture is heterogeneous. Thyroid vascularity is normal. Isthmus: 0.6 cm in maximum AP dimension. Previously 0.9 cm. RIGHT THYROID LOBE: There is 1 nodule seen. 1. Location: Mid. Size: 1.7 x 1.6 x 1.4 cm. Previous: 1.3 x 1.4 x 1.6 cm. Nodule characteristics: Complex cystic and solid nodule with smooth circumscribed margins and intranodular flow but no microcalcification. ISTHMUS: There is 1 nodule seen. 1. Location: Left. Size: 0.5 x 0.4 x 0.4 cm. This nodule is new. Nodule characteristics: Hypoechoic smoothly marginated nodule with no intranodular flow or microcalcification. LEFT THYROID LOBE: There is 1 nodule seen. 1. Location: Superior. Size: 0.3 x 0.2 x 0.3 cm. This nodule is new. Nodule characteristics: Hypoechoic smoothly marginated nodule with no intranodular flow or microcalcification. NODES: No lymphadenopathy is seen in the tissue surrounding the thyroid gland. Laboratory Tests 12/11/20 12/12/20 12/12/20 13:24 09:00 09:00 Hgb Hct Sodium Potassium Creatinine Estimated GFR POC Glucose Hgb A1c (Clinic) 8.3 H Calcium Albumin Ur 24 Hour Volume 2250 Ur Creatinine mg/d L 55.54 Ur Creatinine 24 H our 1.33 Ur Calcium 24 Hr 333 H Calcium/Creat 24 H r 251 03/02/21 03/03/21 03/03/21 14:50 05:18 05:18 Hgb 11.0 L Hct 34.4 L Sodium 138 Potassium 4.0 Creatinine 0.70 Estimated GFR > 60 POC Glucose Hgb A1c (Clinic) Calcium 9.5 D Albumin 4.3 Ur 24 Hour Volume Ur Creatinine mg/d L Ur Creatinine 24 H our Ur Calcium 24 Hr Calcium/Creat 24 H r 03/04/21 10:56 Hgb Hct Sodium Potassium Creatinine Estimated GFR POC Glucose 125 H Hgb A1c (Clinic) Calcium Albumin Ur 24 Hour Volume Ur Creatinine mg/d L Ur Creatinine 24 H our Ur Calcium 24 Hr Calcium/Creat 24 H r Laboratory Tests 11/13/19 11/13/19 08/27/20 10:30 10:30 10:13 Hgb Hct Sodium Potassium Creatinine Estimated GFR Glucose (Clinic) 178 H Fasting Glucose Hgb A1c (Clinic) Calcium Ionized Calcium AST ALT Alkaline Phosphata se Alk Phos Bone Spec ific Albumin Triglycerides 181 Cholesterol 143 LDL Cholesterol Di rect 64 LDL Cholesterol, C alc 60 HDL Cholesterol 47 25-OH Vitamin D To madhu 1,25 Dihydroxy Vit D TSH Free T4 PTH Intact Calcium (PTH Intac t) PTH Related Protei n 08/27/20 08/27/20 08/27/20 11:15 11:15 11:15 Hgb Hct Sodium 135 Potassium 4.5 Creatinine 0.80 Estimated GFR > 60 Glucose (Clinic) Fasting Glucose 164 H Hgb A1c (Clinic) Calcium 10.0 Ionized Calcium 5.5 AST 35 H D ALT 55 H Alkaline Phosphata se 173 H Alk Phos Bone Spec ific 38.8 H Albumin 4.3 Triglycerides Cholesterol LDL Cholesterol Di rect LDL Cholesterol, C alc HDL Cholesterol 25-OH Vitamin D To madhu 24.3 1,25 Dihydroxy Vit D 65 TSH 3.49 Free T4 0.92 PTH Intact 63 Calcium (PTH Intac t) 10.2 PTH Related Protei n 12 L 08/27/20 08/27/20 11:15 15:49 Hgb 14.1 Hct 43.2 Sodium Potassium Creatinine Estimated GFR Glucose (Clinic) Fasting Glucose Hgb A1c (Clinic) 7.6 H Calcium Ionized Calcium AST ALT Alkaline Phosphata se Alk Phos Bone Spec ific Albumin Triglycerides Cholesterol LDL Cholesterol Di rect LDL Cholesterol, C alc HDL Cholesterol 25-OH Vitamin D To madhu 1,25 Dihydroxy Vit D TSH Free T4 PTH Intact Calcium (PTH Intac t) PTH Related Protei n [facility] Medical History (Updated 01/10/24 @ 14:31 by Darcy Malone MD) Sleep apnea History of left breast cancer Colitis HTN (hypertension) Hypercalcemia Hirsutism Obesity Dyslipidemia Hypertension Diabetic nephropathy associated with type 2 diabetes mellitus 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 Social History Household Members: None Housing: Apartment Do you presently have visiting nurse or other home services: Yes ([facility] ) Alcohol intake: never Patient Tobacco Use Status: Former Tobacco user Quit Date: >30 YRS AGO Second Hand Smoke Exposure: No service: No Current occupational status: unemployed Current occupation: rt handed Physical Exam Vital Signs: Last Vital Signs Pulse 93 01/31/24 13:37 BP 120/60 01/31/24 13:37 BMI result Body Mass Index 33.2 Absence of Cushingoid features. Absence of acromegalic features. Neck exam reveals nl size thyroid about 15 gms. No thyroid nodules palpable. No carotid bruits present. Lungs CTA. Heart S1 S2, Reg R/R. No M/R/ G. Skin exam reveals absence of vitiligo or acanthosis nigricans. Abdominal exam reveals Soft NT/ND with NA BS. No organomegaly present. Neck Other: . Extrem Other: Visual exam of foot performed. No ulcerations or open lesions. No onchomycosis, no callouses.Pulses 2 + distally Sensation intact to monofilament exam. Vibratory sensation sensed is decreased with 128 Hz tuning fork Results AMB Hemoglobin A1c AMB Hemoglobin A1c 6.4 % Last Edit by STEVEN Larios on 01/31/24 13:58 Results Reviewed Results Reviewed: Laboratory Last Values Glucose (Clinic) 131 mg/dL (60-115) H 01/31/24 13:47 Assessment & Plan Assessment & Plan (1) Diabetic nephropathy associated with type 2 diabetes mellitus: Code(s): E11.21 - Type 2 diabetes mellitus with diabetic nephropathy (2) Diabetes type 2, uncontrolled: Code(s): E11.65 - Type 2 diabetes mellitus with hyperglycemia Plan: This is a 67-year-old [place] female with a history of type 2 diabetes being treated with basal-bolus insulin as well as Ozempic with excellent improved glycemic control and known microvascular complications namely microalbuminuria. Plan is continue the current regimen. At this point, patient returned to the care of her primary care provider and returned back to endocrinology should her HbA1c deteriorate (3) Multinodular goiter (nontoxic): Code(s): E04.2 - Nontoxic multinodular goiter Plan Status post FNA of right mid-lower pole nodule twice with benign cytology. Appears clinically euthyroid. Thyroid ultrasound showed stability in the size of the nodules. Plan is to follow with serial ultrasounds and her primary care provider can check an ultrasound about 2-3 years time. If there is significant change in the size or characteristics of the nodules, patient returned back to endocrinology . Orders: Orders AMB Hemoglobin A1c Today E11.21 - Type 2 diabetes mellitus with diabetic nephropathy, Z13.9 - Encounter for screening, unspecified Coding Level of Care Code Est Pt Level 4 (84738) Diagnoses Diabetic nephropathy associated with type 2 diabetes mellitus E11.21 Diabetes type 2, uncontrolled E11.65 Multinodular goiter (nontoxic) E04.2
[2024-01-31 13:52] LABS: Glucose, Whole Blood 131 mg/dL (60-115)
== END 2024-01-31 13:54 | disposition home or self-care (01) ==
PROVIDERS: PCP Internal Medicine Geriatric Medicine; Visit Provider Internal Medicine Endocrinology, Diabetes & Metabolism
DX: E11.21 Type 2 diabetes mellitus with diabetic nephropathy (principal); E11.65 Type 2 diabetes mellitus with hyperglycemia; E04.2 Nontoxic multinodular goiter; Z13.9 Encounter for screening, unspecified
CPT/HCPCS: 99214

== ENCOUNTER → 2024-01-31 13:35 | Outpatient (BNVA) | payer MEDICARE, MEDICAID, SELFPAY | PROVIDERS: PCP Internal Medicine Geriatric Medicine; Visit Provider Internal Medicine Endocrinology, Diabetes & Metabolism | DX: E11.65 Type 2 diabetes mellitus with hyperglycemia (principal); E04.2 Nontoxic multinodular goiter | CPT/HCPCS: 82947; 83036; 99212 ==

== ENCOUNTER 2024-02-08 14:12 | Outpatient (REF) | payer MEDICARE, MEDICAID, SELFPAY ==
--- NOTE | ~2024-02-08 | MM_ITS ---
EXAMINATION: MM SCREENING DIGITAL BREAST TOMOSYNTHESIS, BILATERAL CLINICAL INFORMATION: Screening. Asymptomatic. The patient is status post conservation surgery after a diagnosis of lobular carcinoma of the left breast in 2019. COMPARISON: Mammography: This study is compared with prior exams dating back to 2020. TECHNIQUE: Digital breast tomosynthesis is performed in both the craniocaudal and mediolateral oblique views along with computer-aided detection (CAD). Synthesized 2D images are generated from the tomosynthesis. FINDINGS: There are scattered areas of fibroglandular density (ACR BI-RADS breast composition Category b). There are no significant masses, abnormal calcifications, or other abnormalities. There are 2 tissue markers in each breast from prior benign percutaneous biopsies. There are bilateral, coarse calcifications in each breast. There is minor skin thickening of the left breast consistent with a history of prior breast cancer treatment. There are scattered, bilateral benign calcifications in each breast. MM/MM tomosynthesis screening BI IMPRESSION: No mammographic evidence of malignancy. ASSESSMENT: BI-RADS BI-RADS 2 - Benign Findings RECOMMENDATION: Routine annual mammography screening. 1 year F/U This examination should not preclude the clinical evaluation of a suspicious palpable abnormality. This patient's information was entered into a reminder system with a target due date for their next mammogram.
== END 2024-02-08 14:13 | disposition home or self-care (01) ==
LOC: HO.MAMMO 14:12
PROVIDERS: PCP Internal Medicine Geriatric Medicine; Visit Provider Internal Medicine Geriatric Medicine
DX: Z12.31 Encounter for screening mammogram for malignant neoplasm of breast (principal)
CPT/HCPCS: 77063; 77067

== ENCOUNTER → 2024-02-08 14:45 | Outpatient (BNV) | payer MEDICARE, MEDICAID, SELFPAY | PROVIDERS: PCP Internal Medicine Geriatric Medicine; Visit Provider Radiology Diagnostic Radiology | DX: Z12.31 Encounter for screening mammogram for malignant neoplasm of breast (principal) | CPT/HCPCS: 77063; 77067 ==

== ENCOUNTER 2024-06-30 22:04 | Emergency (ER) | payer MEDICARE, MEDICAID, SELFPAY ==
--- NOTE | ~2024-06-30 | XR_ITS ---
EXAMINATION: XR SHOULDER, LEFT CLINICAL INFORMATION: Pain. COMPARISON: None available. TECHNIQUE: AP external rotation, Grashey, scapular Y, and axillary views of the left shoulder. FINDINGS: The bone mineralization is within normal limits. There is mild acromioclavicular and glenohumeral degenerative change with mild subchondral sclerosis and osteophyte formation. There is no dislocation. There is no acute fracture. The soft tissues are unremarkable. XR/XR shoulder LT min 2V IMPRESSION: No significant abnormality Electronically signed by: Nestor Evans MD 07/01/2024 04:20 AM EDT
--- NOTE | 2024-06-30 22:06 | ECG_ITS ---
Test Reason : SHOULDER PAIN Blood Pressure : / mmHG Vent. Rate : 082 BPM Atrial Rate : 082 BPM P-R Int : 172 ms QRS Dur : 136 ms QT Int : 400 ms P-R-T Axes : 052 -52 047 degrees QTc Int : 467 ms Normal sinus rhythm Left axis deviation Non-specific intra-ventricular conduction block Minimal voltage criteria for LVH, may be normal variant ( Tej product ) Abnormal ECG When compared with ECG of 15-JAN-2021 07:25, No significant change was found Referred By: Generic ED Physician Electronically Signed By:ROSELYN REED
[2024-06-30 22:11] VITALS: BP 125/54; PULSE 87; RESP 16; TEMP 36.3; O2SAT 97; BMI 33.3
[2024-07-01 00:35] VITALS: BP 142/62; PULSE 76; RESP 16; TEMP 36.7; O2SAT 98
--- NOTE | 2024-07-01 01:59 | ED_ITS ---
HPI - General Adult General Chief complaint: Extremity Problem Stated complaint: left shoulder pain Time Seen by Provider: 07/01/24 01:25 Source: patient, family, RN notes reviewed, old records reviewed and manager transportation Mode of arrival: ambulatory Limitations: language barrier History of Present Illness ED Provider: Alexia HPI narrative: 68-year-old female with past medical history significant for diabetes, hypertension, neuropathy, obesity, history of left breast cancer presents for evaluation of left shoulder pain Patient reports that she has had pain to the left shoulder for the last 2 months. The pain is worse with movement especially washing the dishes Her pain radiates down her left arm. She has never had any chest pain Denies any shortness of breath. Denies any palpitations lightheadedness Patient states her pain is worse with lifting her left arm over her head She has been taking Tylenol with minimal relief of her symptoms Related Data Home Medications ?Medication ?Instructions ?Recorded ?Confirmed acetaminophen 500 mg tablet 1 - 2 tab PO Q8H PRN pain 08/06/20 01/10/24 aspirin 81 mg tablet,delayed 1 tab PO DAILY 08/06/20 01/10/24 release atorvastatin 20 mg tablet 20 mg PO BEDTIME 08/06/20 01/10/24 benztropine 1 mg tablet 1 mg PO BID 08/06/20 01/10/24 fluphenazine decanoate 25 mg/mL 50 mg IM Q3W 08/06/20 01/10/24 injection solution lisinopril 10 mg tablet 10 mg PO DAILY 08/06/20 01/10/24 nortriptyline 75 mg capsule 75 mg PO BEDTIME 08/06/20 01/10/24 omeprazole 20 mg capsule,delayed 20 mg PO DAILY 08/06/20 01/10/24 release zolpidem 5 mg tablet (Ambien) 5 mg PO BEDTIME 08/06/20 01/10/24 polyvinyl alcohol 1.4 % eye drops 1 drp ophthalmic (eye) BID 03/02/21 01/10/24 (Artificial Tears (polyvinyl alcohol)) alcohol swabs 1 pad topical QID 04/23/21 01/10/24 insulin aspart U-100 100 unit/mL 20 unit subcut TID 08/11/22 01/10/24 (3 mL) subcutaneous pen (Novolog FlexPen U-100 Insulin aspart) lactulose 10 gram oral packet 10 g PO DAILY 10/12/23 01/10/24 Previous Rx's ?Medication ?Instructions ?Recorded ibuprofen 800 mg tablet 800 mg PO Q8H PRN pain 30 days #90 07/08/21 tabs glucose 4 gram chewable tablet 4 g PO Q15M PRN hypoglycemia #30 09/01/22 tabs pen needle, diabetic 32 gauge x #400 ea 11/23/22 (BD Edilia 2nd Gen Pen Needle) cyclobenzaprine 5 mg tablet 5 mg PO Q8H PRN pain (scale score 02/01/23 7-10) 5 days #14 tabs lidocaine 5 % topical patch 1 patch topical DAILY PRN pain #30 02/01/23 (Lidoderm) ea blood-glucose meter (FreeStyle #1 ea 03/03/23 Lite Meter kit) letrozole 2.5 mg tablet 2.5 mg PO DAILY #90 tabs 01/10/24 lancets 28 gauge (FreeStyle #100 ea 01/17/24 Lancets) blood sugar diagnostic (FreeStyle #100 ea 02/16/24 Lite Strips) semaglutide 2 mg/dose (8 mg/3 mL) 2 mg (0.75 mL) subcut QWEEK #3 mL 03/09/24 subcutaneous pen injector (Ozempic) empagliflozin 10 mg tablet 10 mg PO DAILY #30 tabs 03/12/24 (Jardiance) flash glucose scanning reader #2 ea 03/12/24 (FreeStyle Anahy 2 [place]) flash glucose sensor (FreeStyle #6 ea 03/14/24 Anahy 2 Sensor kit) insulin degludec 200 unit/mL (3 85 unit (0.425 mL) subcut DAILY #9 04/09/24 mL) subcutaneous pen (Tresiba mL FlexTouch U-200 insulin) meloxicam 7.5 mg tablet 7.5 mg PO DAILY #30 tabs 04/15/24 acetaminophen 300 mg-codeine 30 mg 1 tab PO Q6H PRN pain #12 tabs 07/01/24 tablet lidocaine 5 % topical patch 1 patch topical DAILY #15 ea 07/01/24 Allergies Allergy/AdvReac Type Severity Reaction Status Date / Time metformin [METFORMIN] Allergy Intermediate ELEVATED Verified 06/30/24 22:15 LIVER ENZYMES, liver damage Review of Systems Constitutional: Constitutional: Denies body ache(s), Denies chills and Denies fever(s) Eyes: Eyes: Denies blurry vision ENT: Denies vertigo and Denies dizziness Cardiovascular: Cardiovascular: Denies chest pain, Denies chest pain at rest, Denies chest pain with activity, Denies syncope, Denies rapid heart rate and Denies dyspnea Respiratory: Respiratory: Denies cough and Denies dyspnea Gastrointestinal: Gastrointestinal: Denies abdominal pain Musculoskeletal: Musculoskeletal: Reports arthralgias, Reports joint swelling, Reports limited range of motion, Denies numbness, Reports radiating pain into limb, Reports stiffness and Denies tingling Integumentary/Breasts: Skin/Breast: Denies rash Neurologic: Denies vertigo, Denies dizziness, Denies syncope, Denies numbness and Denies tingling PMFSH Past Medical History Medical History (Updated 07/01/24 @ 02:07 by Hao Hale) Sleep apnea History of left breast cancer Colitis HTN (hypertension) Hypercalcemia Hirsutism Obesity Dyslipidemia Hypertension Diabetic nephropathy associated with type 2 diabetes mellitus long-term (current) use of insulin Diabetes type 2, uncontrolled Liver cirrhosis Multinodular goiter (nontoxic) Urinary incontinence Bipolar disorder Hyperlipidemia Surgical History History of esophagogastroduodenoscopy (EGD) Hx of removal of ovary Hx of cholecystectomy Hx of colonoscopy Status post laser cataract surgery of both eyes History of tonsillectomy History of tubal ligation Status post left breast lumpectomy History of appendectomy Family History Family History Father History of lung cancer Mother No problems noted. Social History Social History Household Members: None Housing: Apartment Do you presently have visiting nurse or other home services: Yes ([facility] ) Alcohol intake: never Patient Tobacco Use Status: Former Tobacco user Second Hand Smoke Exposure: No Advance Directives: No Advance Directives Information Provided: No service: No Current occupational status: unemployed Current occupation: rt handed Physical Exam ED Vital Signs: Vital Signs - 24 hr 06/30/24 22:11 07/01/24 00:35 Temperature 97.4 F 98.0 F Pulse Rate 87 76 Respiratory Rate 16 16 Blood Pressure 125/54 L 142/62 H Pulse Oximetry 97 98 Oxygen Delivery Method Room Air Room Air BMI result Body Mass Index 33.3 Const General: healthy appearing, comfortable, no acute distress, alert and awake Nutritional Appearance: well nourished Orientation/consciousness: patient oriented x3 HENMT Head: Yes normocephalic and Yes atraumatic Eyes Eyelids: Yes eyelids normal Conjunctivae: conjunctivae normal Sclerae: sclerae normal Corneas: corneas normal Pupils: Equal, round and reactive pupils present EOM: EOMs intact bilaterally Neck Neck: Yes full ROM Resp Effort & Inspection: normal respiratory effort, able to speak in complete sentences, no audible wheezes and not labored Auscultation: clear to auscultation bilaterally Cardio Rate: regular rate Rhythm: regular rhythm GI Inspection: No distended Palpation (GI): Soft to palpation, not firm, nontender, no guarding and not rigid Skin General skin exam: elasticity normal Neuro General: patient oriented x3 Cranial nerves: Yes Equal, round and reactive pupils present and Yes Bilaterally intact EOM present Cognition (Neuro): normal cognition Extrem Other: Patient has tenderness palpation of the left anterior shoulder, specifically in the bicipital groove. She has mild left trapezius muscle group tenderness. There was no clavicular tenderness. There was no cervical spine or cervical paraspinous muscle tenderness. The patient has pain elicited in the left shoulder with abduction of the left upper extremity. No deformity noted Medical Decision Making Medical Decision Making MDM Narrative: 68-year-old female presents for evaluation of left chest pain for 2 months, this is most likely musculoskeletal in origin as it is worse with movement, has reproducible on exam, she has no chest pain. Over given the she has an older woman with shoulder pain we will get an EKG. She has not had an x-ray of the left shoulder in over a year, we will repeat an x-ray at this time. Differential Diagnosis Differential Diagnoses: The differential diagnosis associated with the presentation includes Calcific tendinitis Left shoulder pain ACS less likely Cervical radiculopathy Independent Interpretation I performed an independent interpretation of an: EKG and Plain X-Ray (Mild arthritic changes without deformity) Interpretation: Normal sinus rhythm with a rate of 82 beats per minute. No ST segment elevations or depressions. No ST segment elevation PA Discharge Plan Discharge Clinical Impression: Acute pain of left shoulder Patient Disposition: Home, Self-Care Instructions: Arthralgia (ED) Additional Instructions: Your x-ray shows mild arthritis, no deformities. Your EKG does not show any findings that would suggest your heart is the cause of your pain Use lidocaine patches as needed for pain. I prescribed several Tylenol 3 tablets These contain codeine and may make you drowsy, do not take additional Tylenol if you take these, and do not drive or drink alcohol if you take them. Follow-up with your primary doctor, return for new or worsening symptoms Prescriptions: New acetaminophen-codeine 300-30 mg tablet 1 tab PO Q6H PRN (Reason: pain) Qty: 12 0RF lidocaine 5 % adhesive patch,medicated 1 patch topical DAILY Qty: 15 0RF Rx Instructions: leave on most painful area for up to 12 hrs No Action ibuprofen 800 mg tablet 800 mg PO Q8H PRN (Reason: pain) 30 Days Qty: 90 3RF glucose 4 gram tablet,chewable 4 g PO Q15M PRN (Reason: hypoglycemia) Qty: 30 5RF Rx Instructions: until symptoms of low blood sugar are controlled (DME) pen needle, diabetic [BD Edilia 2nd Gen Pen Needle] 32 gauge x /32 needle See Rx Instructions .MEDSUPPLY Qty: 400 4RF Rx Instructions: 5 times a day (DME) blood-glucose meter [FreeStyle Lite Meter] Kit See Rx Instructions .Route Qty: 1 0RF Rx Instructions: As directed checks 4 X/day (DME) lancets [FreeStyle Lancets] 28 gauge misc See Rx Instructions .Route Qty: 100 4RF Rx Instructions: As directed-tests 3 X/day (DME) FreeStyle Lite Strips Strip See Rx Instructions .MEDSUPPLY Qty: 100 6RF Rx Instructions: 3 times a day Ozempic 2 mg/dose (8 mg/3 mL) pen injector 2 mg subcut QWEEK Qty: 3 5RF (DME) FreeStyle Anahy 2 [place] Misc See Rx Instructions .Route Qty: 2 4RF Rx Instructions: As directed change every 14 days Jardiance 10 mg tablet 10 mg PO DAILY Qty: 30 5RF (DME) FreeStyle Anahy 2 Sensor Kit See Rx Instructions .Route Qty: 6 5RF Rx Instructions: As directed change every 14 days Tresiba FlexTouch U-200 200 unit/mL (3 mL) insulin pen 85 unit subcut DAILY Qty: 9 0RF meloxicam 7.5 mg tablet 7.5 mg PO DAILY Qty: 30 3RF polyvinyl alcohol [Artificial Tears (polyvin alc)] 1.4 % drops 1 drp ophthalmic (eye) BID nortriptyline 75 mg capsule 75 mg PO BEDTIME zolpidem [Ambien] 5 mg Tablet 5 mg PO BEDTIME atorvastatin 20 mg tablet 20 mg PO BEDTIME aspirin 81 mg tablet,delayed release (DR/EC) 1 tab PO DAILY acetaminophen 500 mg tablet 1 - 2 tab PO Q8H PRN (Reason: pain) fluphenazine decanoate 25 mg/mL solution 50 mg IM Q3W lisinopril 10 mg tablet 10 mg PO DAILY benztropine 1 mg tablet 1 mg PO BID omeprazole 20 mg capsule,delayed release(DR/EC) 20 mg PO DAILY letrozole 2.5 mg Tablet 2.5 mg PO DAILY Qty: 90 0RF lidocaine [Lidoderm] 5 % adhesive patch,medicated 1 patch topical DAILY MDD remove after 12 hours PRN (Reason: pain) Qty: 30 0RF Rx Instructions: leave on most painful area for up to 12 hrs cyclobenzaprine 5 mg tablet 5 mg PO Q8H PRN (Reason: pain (scale score 7-10)) 5 Days Qty: 14 0RF lactulose 10 gram Packet 10 g PO DAILY alcohol swabs Pads, Medicated 1 pad topical QID insulin aspart U-100 [Novolog FlexPen U-100 Insulin] 100 unit/mL (3 mL) insulin pen 20 unit subcut TID Print Language: Montserratian
[2024-07-01 02:24] VITALS: BP 128/74; PULSE 72; RESP 16; TEMP 36.8; O2SAT 98
== END 2024-07-01 02:27 | disposition home or self-care (01) ==
PROVIDERS: Emergency Provider Internal Medicine; PCP Internal Medicine Geriatric Medicine
DX: M25.512 Pain in left shoulder (principal); E11.9 Type 2 diabetes mellitus without complications; I10 Essential (primary) hypertension; E78.5 Hyperlipidemia, unspecified; Z79.82 Long term (current) use of aspirin; Z79.02 Long term (current) use of antithrombotics/antiplatelets; Z79.899 Other long term (current) drug therapy; Z79.4 Long term (current) use of insulin
CPT/HCPCS: 73030; 93005; 99283

== ENCOUNTER 2024-07-19 09:40 | Outpatient (REF) | payer MEDICARE, MEDICAID, SELFPAY ==
[2024-07-19 11:28] LABS: MANUAL DIFF FLAG NO
[2024-07-19 11:50] LABS: Basophils Percent Auto 0.5 % (0-2); Eosinophils Absolute Auto 0.1 X10*3/uL (0.0-0.4); Eosinophils Percent Auto 1.5 % (0-4); Hematocrit 42.6 % (37.0-47.0); Hemoglobin 13.7 g/dl (12.0-16.0); Imm Gran Abs Auto 0.02 X10*3/uL (0.00-0.03); Imm Gran Pct Auto 0.3 % (0.0-0.4); Lymphocytes Absolute Auto 1.5 X10*3/uL (1.2-4.9); Lymphocytes Percent Auto 19.4 % (20-40); Mean Corpuscular HGB Conc 32.2 g/dl (31.0-35.0); Mean Corpuscular Hemoglobin 25.8 pg (27.0-33.0); Mean Corpuscular Volume 80.1 fL (80.0-98.0); Mean Platelet Volume 9.9 fL (9.4-12.3); Monocytes Absolute Auto 0.4 X10*3/uL (0.1-1.2); Monocytes Percent Auto 5.5 % (2-11); Neutrophils Absolute Auto 5.5 x10*3/uL (2.0-8.3); Neutrophils Percent Auto 72.8 % (45-73); Platelet Count 221 X10*3/uL (160-400); Red Blood Count 5.32 X10*6/uL (4.20-5.50); Red Cell Distribution Width 15.5 % (11.0-16.0); White Blood Count 7.5 X10*3/uL (4.8-10.8)
[2024-07-19 11:53] LABS: Estimated Average Glucose 128 mg/dL; Hemoglobin A1c % 6.1 % (<6.0)
[2024-07-19 12:13] LABS: Alanine Aminotransferase 31 U/L (0-31); Albumin Level 3.9 g/dL (3.5-5.0); Alkaline Phosphatase 126 U/L (39-117); Anion Gap 10 (12-20); Aspartate Amino Transferase 27 U/L (5-31); Bilirubin Total 0.6 mg/dL (0.0-1.0); Blood Urea Nitrogen 14 mg/dL (9-16); Carbon Dioxide 25 mmol/L (22-29); Chloride 107 mmol/L (96-108); Estimated Glomerular Filt Rate > 60; Glucose Random 92 mg/dL (60-115); Potassium 4.2 mmol/L (3.3-5.1); Sodium 138 mmol/L (135-145); Total Protein 7.1 g/dL (6.5-8.0)
[2024-07-19 12:24] LABS: Creatinine Urine 77.27 mg/dL; Microalbum/Creatinine Ratio Ur 54.3 ug/mg cr (<30)
== END 2024-07-19 09:41 | disposition home or self-care (01) ==
LOC: HO.HHCL 09:40
PROVIDERS: Visit Provider Internal Medicine Geriatric Medicine
DX: E11.69 Type 2 diabetes mellitus with other specified complication (principal); I10 Essential (primary) hypertension; M25.512 Pain in left shoulder; G89.29 Other chronic pain
CPT/HCPCS: 36415; 80053; 82043; 82570; 83036; 85025

== ENCOUNTER 2024-08-20 14:14 | Outpatient (AMB) | payer MEDICARE, MEDICAID, SELFPAY ==
--- NOTE | 2024-08-20 14:43 | A.OFFVIS_ITS ---
Intake Visit Reasons: OV - new problem Lt shoulder pain Intake Note: Priscila is a 68 year old right hand dominant female who presents to the office today for an evaluation of left shoulder pain. Patient was evaluated at the ED on 07/01/24 where she reported that she has had pain to the left shoulder for the last 2 months. She states the pain is worse with movement like lifting her arm above her head and that the pain radiates down her left arm to her hand. Numbness and tingling in her shoulder. Patient states she has tried Tylenol and Motrin with no relief. No previous tx. Box Folding Machine Operator Required: Yes Box Folding Machine Operator Language: Garde Manager Services: Box Folding Machine Operator Present Box Folding Machine Operator Name: Clair ID#[id number] Allergies metformin [METFORMIN] Allergy (Intermediate, Verified 08/20/24 14:50) ELEVATED LIVER ENZYMES, liver damage Medication List - Last Reconciled 08/20/24 by Omar Vega PA-C acetaminophen 1 - 2 tabs PO Q8H PRN acetaminophen-codeine 300-30 mg 1 tab PO Q6H PRN alcohol swabs 1 pad topical QID aspirin 1 tab PO DAILY atorvastatin 20 mg PO BEDTIME benztropine 1 mg PO BID blood sugar diagnostic (FreeStyle Lite Strips) 3 times a day blood-glucose meter (FreeStyle Lite Meter kit) As directed checks 4 X/day cyclobenzaprine 5 mg PO Q8H PRN 5 days empagliflozin (Jardiance) 10 mg PO DAILY flash glucose scanning reader (FreeStyle Anahy 2 [place]) As directed change every 14 days flash glucose sensor (FreeStyle Anahy 2 Sensor kit) As directed change every 14 days fluphenazine decanoate 50 mg IM Q3W glucose 4 grams PO Q15M PRN ibuprofen 800 mg PO Q8H PRN 30 days insulin aspart U-100 (Novolog FlexPen U-100 Insulin aspart) 20 units subcut TID insulin degludec (Tresiba FlexTouch U-200 insulin) 85 units (0.425 mL) subcut DAILY lactulose 10 grams PO DAILY lancets (FreeStyle Lancets) As directed-tests 3 X/day letrozole 2.5 mg PO DAILY lidocaine 5% 1 patch topical DAILY lidocaine 5% (Lidoderm) 1 patch topical DAILY PRN MDD remove after 12 hours lisinopril 10 mg PO DAILY meloxicam 7.5 mg PO DAILY nortriptyline 75 mg PO BEDTIME omeprazole 20 mg PO DAILY pen needle, diabetic (BD Edilia 2nd Gen Pen Needle) 5 times a day polyvinyl alcohol 1.4% (Artificial Tears (polyvinyl alcohol)) 1 drp ophthalmic (eye) BID semaglutide (Ozempic) 2 mg (0.75 mL) subcut QWEEK zolpidem (Ambien) 5 mg PO BEDTIME HPI HPI OV - new problem Lt shoulder pain: Details: 68-year-old right hand dominant female who returns to the office today with an interpreter deaf for a follow-up of left shoulder pain. She reports she has been muñiz ving pain in her left shoulder for about 2 months and was seen at ED on 07/01/24 for her pain. She currently states she has numbness, tingling and worsening pain in her shoulder that radiates down her arm and hand. Her pain is aggravated with movement like overhead reaching, lifting and reaching back. She has tried Tylenol and Motrin for her pain with no relief. She has not had any treatment in the past. She has a history of diabetes. She takes insulin daily. Her sugar level was 96 this morning. 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 Social History Household Members: None Housing: Apartment Do you presently have visiting nurse or other home services: Yes ([facility] ) Alcohol intake: never Patient Tobacco Use Status: Former Tobacco user Second Hand Smoke Exposure: No service: No Current occupational status: unemployed Current occupation: rt handed Review of Systems Const All systems reviewed & are unremarkable except as noted in HPI and below Physical Exam Extrem Other: Left shoulder: Normal to inspection. Tenderness over the bicipital groove and along the deltoid region of the shoulder. Forward flexion to 90, external rotation to 90, internal rotation to S1. 5/5 RTC strength. Negative Branch and cross body abduction. NVI. Office Procedures Joint Injection/Aspiration Joint Injection/Aspiration Primary Site: left shoulder Prep: site was prepped using aseptic technique, ethochloride spray was applied and injection warnings given Injected: 40 mg of, DepoMedrol, with 8 mL of, 1% plain lidocaine and in the subcromial space Approach Used: posterolateral Procedure: The patient tolerated the procedure well and there was some relief with the local anesthesia Coding 57480 - Glenohumeral/Tronchanteric Bursa/Intraarticular Procedure code (CPT) selection complete Results Reviewed Results Reviewed: X-rays of the left shoulder obtained in the office today show OA. Assessment & Plan Assessment & Plan (1) Osteoarthritis of left shoulder: Code(s): M19.012 - Primary osteoarthritis, left shoulder Category: Medical Plan We discussed options today, which include steroid injection. The patient did consent to move forward with the left shoulder injection, which was tolerated well. I recommended rest, ice, and elevation and OTC anti-inflammatories as needed for discomfort. We also discussed diabetes and the effect the steroid injection can have on their blood glucose levels; therefore, they will continue to monitor these very closely over the next 72 hours. If there are concerns, they should report to the ED immediately. Orders: Orders PT Evaluation and Treatment Today M19.012 - Primary osteoarthritis, left shoulder Patient Instructions: Scribed for Omar Vega PA-C, by Fabio Frias medical accounts receivable specialist, on 08/20/2024 at 2:45 PM EST.? I, Omar Vega PA-C, have personally reviewed and agree with the information entered by the scribe. Coding Level of Care Code Est Pt Level 3 (27448) Complex EM visit Add On G2211 Diagnoses Osteoarthritis of left shoulder M19.012 CPT Codes Coding - Joint 7: 33454 - Glenohumeral/Tronchanteric Bursa/Intraarticular ([id number])
== END 2024-08-20 15:48 | disposition home or self-care (01) ==
LOC: HO.HOS 14:14
PROVIDERS: PCP Internal Medicine Geriatric Medicine; Visit Provider Physician Assistant
DX: M19.012 Primary osteoarthritis, left shoulder (principal)
CPT/HCPCS: 20610; 99213

== ENCOUNTER → 2024-08-20 14:14 | Outpatient (BNVA) | payer MEDICARE, MEDICAID, SELFPAY | PROVIDERS: PCP Internal Medicine Geriatric Medicine; Visit Provider Physician Assistant | DX: M19.012 Primary osteoarthritis, left shoulder (principal) | CPT/HCPCS: 20610; 99212; J1010; J2003 ==

== ENCOUNTER 2024-09-07 14:48 | Outpatient (AMB) | payer MEDICARE, MEDICAID, SELFPAY ==
--- NOTE | 2024-09-07 14:50 | A.OFFVIS_ITS ---
Vital Signs 09/07/24 15:01 Height 5 ft 2 in Weight 182 lb 15.739 oz BMI 33.5 BP 108/60 Blood Pressure Location Rt brachial Position Sitting Pulse 84 Pulse Source Pulse Oximeter Intake Visit Reasons: DM/UNABLE TO LVM Intake Note: Patient presents today to re-establish treatment for Type 2 Diabetes Mellitus: Last Diabetic Eye exam: 10/2023 Last Podiatry Visit: 12/2023 Most recent HbA1c: 6.1%, 07/19/2024 Random Glucose- 95 mg/dL, Today Drill Press Operator Required: Yes Drill Press Operator Language: Commercial Real Estate Attorney Services: Drill Press Operator Present Drill Press Operator Name: STEVEN Potts/SHANKAR SANDY Accompanied by: Self / Same As Patient Allergies metformin [METFORMIN] Allergy (Intermediate, Verified 09/07/24 15:07) ELEVATED LIVER ENZYMES, liver damage Medication List - Last Reconciled 09/07/24 by MARY Singh acetaminophen 1 - 2 tabs PO Q8H PRN acetaminophen-codeine 300-30 mg 1 tab PO Q6H PRN alcohol swabs 1 pad topical QID aspirin 1 tab PO DAILY atorvastatin 20 mg PO BEDTIME benztropine 1 mg PO BID blood sugar diagnostic (FreeStyle Lite Strips) 3 times a day blood-glucose meter (FreeStyle Lite Meter kit) As directed checks 4 X/day cyclobenzaprine 5 mg PO Q8H PRN 5 days empagliflozin (Jardiance) 10 mg PO DAILY flash glucose scanning reader (FreeStyle Anahy 2 Reading) As directed change every 14 days flash glucose sensor (FreeStyle Anahy 2 Sensor kit) As directed change every 14 days fluphenazine decanoate 50 mg IM Q3W glucose 4 grams PO Q15M PRN ibuprofen 800 mg PO Q8H PRN 30 days insulin aspart U-100 (Novolog FlexPen U-100 Insulin aspart) 14 units subcut TID insulin degludec (Tresiba FlexTouch U-200 insulin) 85 units (0.425 mL) subcut DAILY lactulose 10 grams PO DAILY lancets (FreeStyle Lancets) As directed-tests 3 X/day letrozole 2.5 mg PO DAILY lidocaine 5% 1 patch topical DAILY lidocaine 5% (Lidoderm) 1 patch topical DAILY PRN MDD remove after 12 hours lisinopril 10 mg PO DAILY meloxicam 7.5 mg PO DAILY nortriptyline 75 mg PO BEDTIME omeprazole 20 mg PO DAILY pen needle, diabetic (BD Edilia 2nd Gen Pen Needle) 5 times a day polyvinyl alcohol 1.4% (Artificial Tears (polyvinyl alcohol)) 1 drp ophthalmic (eye) BID semaglutide (Ozempic) 2 mg (0.75 mL) subcut QWEEK zolpidem (Ambien) 5 mg PO BEDTIME HPI Comments Details: This is a 69-year-old female with a past medical history of osteoarthritis, liver cirrhosis, left breast cancer, obesity, dyslipidemia, hypertension, schizophrenia, multinodular goiter and type 2 diabetes presenting for diabetic management. She was last seen by Dr. Davis 01/31/2024. She had oophorectomy 01/18/2020. She has left breast cancer. She had a lumpectomy and completed radiation therapy. There was no available data in her One-Touch glucometer download because the date/time needed to be reset. All readings reviewed on her machine were in target. She does not want to use sensor, and she is very good about checking her blood sugars. She has coffee and a sandwich or smoothie for breakfast. She doesn't usually eat lunch. Sometimes she will have a snack like grapes, banana or yogurt. Dinner is usually rice, pork chops, steak and salad. During the day she drinks water, coffee and sometimes juice. Hemoglobin a1c 6.1% 07/19/2024. Current medication regimen: Ozempic 2 mg weekly, Tresiba 85 units daily, Jardiance 10 mg, NovoLog 20 units 3 times daily with meals. Her nurse reported she has been refusing NovoLog sometimes because she is afraid of lows. She says she only takes it before dinner. Her appetite is decreased so she eats small meal portions or snacks. Her weight is stable. Hypoglycemia symptoms: Dizzy and weak. Very rare episodes. No episodes within the past month. Hyperglycemia symptoms: none Eye exam: 11/19/2023. Microvascular complications: neuropathy, nephropathy (microalbuminuria). She complains of tingling and burning in her feet that bothers her at night. Macrovascular complications: None Hypertension: treated with lisinopril 10 mg. Hyperlipidemia: treated with atorvastatin 20 mg. LDL at goal <100. ROS: Constitutional: No unexplained weight loss, fever, chills. Respiratory: No shortness of breath Cardiovascular: No chest pain Neurologic: No headache, dizziness, syncope Skin: No itching or open wounds. Physical exam: Constitutional: Alert, in no distress. Eyes: Pupils are equal, round and reactive to light. Extraocular muscles intact. Neck: Supple, Full range of motion. No lymphadenopathy. No palpable thyroid mass. Respiratory: Clear to auscultation. Cardiovascular: S1 S2 regular. No murmurs. Right foot: Warm and well perfused. No clubbing, cyanosis or edema. Palpable DP pulse. Intact sensation to monofilament. Left foot: Warm and well perfused. No clubbing, cyanosis or edema. Palpable DP pulse. Intact sensation to monofilament. [facility] Medical History (Updated 09/07/24 @ 15:58 by MARY Singh) Controlled type 2 diabetes mellitus Sleep apnea History of left breast cancer Colitis HTN (hypertension) Hypercalcemia Hirsutism Obesity Dyslipidemia Hypertension Diabetic nephropathy associated with type 2 diabetes mellitus ad terminal makeup operator (current) use of insulin Diabetes type 2, uncontrolled Liver cirrhosis Multinodular goiter (nontoxic) Urinary incontinence Bipolar disorder Hyperlipidemia Surgical History History of esophagogastroduodenoscopy (EGD) Hx of removal of ovary Hx of cholecystectomy Hx of colonoscopy Status post laser cataract surgery of both eyes History of tonsillectomy History of tubal ligation Status post left breast lumpectomy History of appendectomy Family History Father History of lung cancer Mother No problems noted. Social History Household Members: None Housing: Apartment Do you presently have visiting nurse or other home services: Yes ([facility] ) Alcohol intake: never Patient Tobacco Use Status: Former Tobacco user Second Hand Smoke Exposure: No service: No Current occupational status: unemployed Current occupation: rt handed Physical Exam Vital Signs: Last Vital Signs Pulse 84 09/07/24 15:01 BP 108/60 09/07/24 15:01 BMI result Body Mass Index 33.5 Results Reviewed Results Reviewed: Laboratory Tests 01/27/24 01/31/24 07/19/24 08:39 13:50 08:45 Creatinine Estimated GFR Hgb A1c (Clinic) 6.4 H Hemoglobin A1c % Triglycerides 83 Cholesterol 137 LDL Cholesterol, Calc 59 HDL Cholesterol 62 Urine Creatinine 77.27 Urine Microalbumin 42.0 Microalb/Creat Ratio 54.3 H 07/19/24 09:48 Creatinine 0.70 Estimated GFR > 60 Hgb A1c (Clinic) Hemoglobin A1c % 6.1 H Triglycerides Cholesterol LDL Cholesterol, Calc HDL Cholesterol Urine Creatinine Urine Microalbumin Microalb/Creat Ratio Assessment & Plan Assessment & Plan (1) Diabetic nephropathy associated with type 2 diabetes mellitus: Code(s): E11.21 - Type 2 diabetes mellitus with diabetic nephropathy Category: Medical (2) Controlled type 2 diabetes mellitus: Code(s): E11.9 - Type 2 diabetes mellitus without complications Category: Medical Plan In summary this is a 69-year-old female with well-controlled type 2 diabetes with macrovascular complications. I sent a prescription for topical capsaicin cream to try at night for neuropathy symptoms. Continue Ozempic 2 mg weekly. Continue Tresiba 85 units daily. Continue Jardiance 10 mg daily. Decrease NovoLog to 14 units before dinner. Lifestyle modifications reviewed with the patient. We discussed complications of uncontrolled type 2 diabetes. Continue annual eye exams. I recommended the influenza vaccine. Patient will follow up in 4 weeks to reassess her medication regimen for type 2 diabetes. If her blood sugars increase significantly we will increase Jardiance and try to continue tapering off what is now a once daily injection of NovoLog. Patient Instructions: Continue Ozempic 2 mg weekly Continue Tresiba 85 units daily Continue Jardiance 10 units daily Decrease Novolog to 14 units before meal. Continuar con Ozempic 2 mg semanales Continuar Tresiba 85 unidades diarias Continuar con Jardiance 10 unidades al d?a. Disminuya Novolog a 14 unidades antes de las comidas. Coding Level of Care Code Est Pt Level 4 (37597) Complex EM visit Add On G2211 Diagnoses Diabetic nephropathy associated with type 2 diabetes mellitus E11.21 Controlled type 2 diabetes mellitus E11.9
[2024-09-07 15:01] VITALS: BP 108/60; PULSE 84; BMI 33.5
[2024-09-07 15:12] LABS: Glucose, Whole Blood 95 mg/dL (60-115)
== END 2024-09-07 15:47 | disposition home or self-care (01) ==
PROVIDERS: PCP Internal Medicine Geriatric Medicine; Visit Provider Physician Assistant Medical
DX: E11.21 Type 2 diabetes mellitus with diabetic nephropathy (principal)

== ENCOUNTER → 2024-09-07 14:48 | Outpatient (BNVA) | payer MEDICARE, MEDICAID, SELFPAY | PROVIDERS: PCP Internal Medicine Geriatric Medicine; Visit Provider Physician Assistant Medical | DX: E11.21 Type 2 diabetes mellitus with diabetic nephropathy (principal) | CPT/HCPCS: 82947; 99212 ==

== ENCOUNTER 2024-10-09 14:13 | Outpatient (AMB) | payer MEDICARE, MEDICAID, SELFPAY ==
--- NOTE | 2024-10-09 14:28 | MHC.OFFVIS ---
Vital Signs 10/09/24 14:32 Height 5 ft 2 in Weight 184 lb 8.43 oz BMI 33.7 BP 112/72 Blood Pressure Location Rt brachial Position Sitting Pulse 87 Pulse Source Pulse Oximeter Intake Visit Reasons: type II diabetes/UNABLE TO LVM Intake Note: Patient present today for T2DM Last Diabetic eye exam: Oct or Dec 2023, has yearly appointments. Last Podiatry Visit: within the year, unsure exactly when. Random Glucose: mg/dl HgA1C: 6.7% 10/09/24 Casting Machine Adjuster Required: Yes Casting Machine Adjuster Language: Crimper Assembler Services: Casting Machine Adjuster Present Information Interpreted: non-clinical & clinical Accompanied by: Self / Same As Patient Allergies metformin [METFORMIN] Allergy (Intermediate, Verified 10/09/24 14:33) ELEVATED LIVER ENZYMES, liver damage HPI Comments Details: This is a 69-year-old female with a past medical history of osteoarthritis, liver cirrhosis, left breast cancer, obesity, dyslipidemia, hypertension, schizophrenia, multinodular goiter and type 2 diabetes presenting for diabetic management. Polish video nurse care manager used for visit. She had oophorectomy 01/18/2020. She has left breast cancer. She had a lumpectomy and completed radiation therapy. There was no available data in her One-Touch glucometer download because the date/time is still not working. Sent Rx for new glucoometer today. She does not want to use a sensor, and she is compliant with monitoring blood sugars. She has coffee and a sandwich or smoothie for breakfast. She doesn't usually eat lunch. Sometimes she will have a snack like grapes, banana or yogurt. Dinner is usually rice, pork chops, steak and salad. During the day she drinks water, coffee and sometimes juice. Hemoglobin a1c 6.1% 07/19/2024. Current medication regimen: Ozempic 2 mg weekly, Tresiba 85 units daily, Jardiance 10 mg, NovoLog 14 units before dinner. Hypoglycemia symptoms: Dizzy and weak. Very rare episodes. 1 episode within the past month. Hyperglycemia symptoms: none Eye exam: 11/19/2023. Microvascular complications: neuropathy, nephropathy (microalbuminuria). She tried Capsaicin, but it made her feet itchy. Discontinued from med list today. Macrovascular complications: None Hypertension: treated with lisinopril 10 mg. Hyperlipidemia: treated with atorvastatin 20 mg. LDL at goal <100. ROS: Constitutional: No unexplained weight loss, fever, chills. Respiratory: No shortness of breath Cardiovascular: No chest pain Neurologic: No headache, dizziness, syncope Skin: No open wounds. Physical exam: Constitutional: Alert, in no distress. Eyes: Pupils are equal, round and reactive to light. Extraocular muscles intact. Neck: Supple, Full range of motion. No lymphadenopathy. No palpable thyroid mass. Respiratory: Clear to auscultation. Cardiovascular: S1 S2 regular. No murmurs. [facility] Medical History (Updated 09/07/24 @ 15:58 by MARY Singh) Controlled type 2 diabetes mellitus Sleep apnea History of left breast cancer Colitis HTN (hypertension) Hypercalcemia Hirsutism Obesity Dyslipidemia Hypertension Diabetic nephropathy associated with type 2 diabetes mellitus watermaster (current) use of insulin Diabetes type 2, uncontrolled Liver cirrhosis Multinodular goiter (nontoxic) Urinary incontinence Bipolar disorder Hyperlipidemia Surgical History History of esophagogastroduodenoscopy (EGD) Hx of removal of ovary Hx of cholecystectomy Hx of colonoscopy Status post laser cataract surgery of both eyes History of tonsillectomy History of tubal ligation Status post left breast lumpectomy History of appendectomy Family History Father History of lung cancer Mother No problems noted. Social History Household Members: None Housing: Apartment Do you presently have visiting nurse or other home services: Yes ([facility] ) Alcohol intake: never Patient Tobacco Use Status: Former Tobacco user Second Hand Smoke Exposure: No service: No Current occupational status: unemployed Current occupation: rt handed Physical Exam Vital Signs: Last Vital Signs Pulse 87 10/09/24 14:32 BP 112/72 10/09/24 14:32 BMI result Body Mass Index 33.7 Results AMB Hemoglobin A1c AMB Hemoglobin A1c 6.7 % Last Edit by STEVEN Qiuñones on 10/09/24 14:51 Results Reviewed Results Reviewed: Laboratory Last Values Glucose (Clinic) 192 mg/dL (60-115) H 10/09/24 14:39 Laboratory Tests 01/27/24 01/31/24 07/19/24 08:39 13:50 08:45 Creatinine Estimated GFR Hgb A1c (Clinic) 6.4 H Hemoglobin A1c % Triglycerides 83 Cholesterol 137 LDL Cholesterol, Calc 59 HDL Cholesterol 62 Urine Creatinine 77.27 Urine Microalbumin 42.0 Microalb/Creat Ratio 54.3 H 07/19/24 09:48 Creatinine 0.70 Estimated GFR > 60 Hgb A1c (Clinic) Hemoglobin A1c % 6.1 H Triglycerides Cholesterol LDL Cholesterol, Calc HDL Cholesterol Urine Creatinine Urine Microalbumin Microalb/Creat Ratio Assessment & Plan Assessment & Plan (1) Diabetic nephropathy associated with type 2 diabetes mellitus: Code(s): E11.21 - Type 2 diabetes mellitus with diabetic nephropathy Category: Medical (2) Controlled type 2 diabetes mellitus: Code(s): E11.9 - Type 2 diabetes mellitus without complications Category: Medical Plan In summary this is a 69-year-old female with controlled type 2 diabetes with microvascular complications. Continue Ozempic 2 mg weekly. Continue Tresiba 85 units daily. Continue Jardiance 10 mg daily. Decrease NovoLog to 7 units before dinner. Lifestyle modifications reviewed with the patient. We discussed complications of uncontrolled type 2 diabetes. Continue annual eye exams. Patient will follow up in 4 weeks to reassess her medication regimen for type 2 diabetes. If her blood sugars increase significantly we will increase Jardiance and try to continue tapering off what is now a once daily injection of NovoLog. Orders: Orders AMB Hemoglobin A1c Today E11.9 - Type 2 diabetes mellitus without complications Medications: Refilled blood-glucose meter (FreeStyle Lite Meter kit) As directed checks 4 X/day 1 ea 0RF E11.21 - Type 2 diabetes mellitus with diabetic nephropathy Discontinued capsaicin 0.075% Apply topically 3 times/day to painful areas associated with neuropathy Discontinued Reason: Doctor's Order 1 appl topical TID PRN 120 grams 3RF neuropathy Patient Instructions: Contin?e con Ozempic 2 mg por semana. Continuar Tresiba 85 unidades diarias. Contin?e con Jardiance 10 mg al d?a. Disminuya NovoLog a 7 unidades antes de la ahsan. Coding Level of Care Code Est Pt Level 4 (16680) Complex EM visit Add On G2211 Diagnoses Diabetic nephropathy associated with type 2 diabetes mellitus E11.21 Controlled type 2 diabetes mellitus E11.9
[2024-10-09 14:32] VITALS: BP 112/72; PULSE 87; BMI 33.7
[2024-10-09 14:44] LABS: Glucose, Whole Blood 192 mg/dL (60-115)
== END 2024-10-09 15:09 | disposition home or self-care (01) ==
PROVIDERS: PCP Internal Medicine Geriatric Medicine; Visit Provider Physician Assistant Medical
DX: E11.21 Type 2 diabetes mellitus with diabetic nephropathy (principal)

== ENCOUNTER → 2024-10-09 14:13 | Outpatient (BNVA) | payer MEDICARE, MEDICAID, SELFPAY | PROVIDERS: PCP Internal Medicine Geriatric Medicine; Visit Provider Physician Assistant Medical | DX: E11.21 Type 2 diabetes mellitus with diabetic nephropathy (principal); Z79.84 Long term (current) use of oral hypoglycemic drugs; Z79.4 Long term (current) use of insulin; E78.5 Hyperlipidemia, unspecified | CPT/HCPCS: 82947; 83036; 99212 ==

== ENCOUNTER 2024-11-06 13:38 | Outpatient (AMB) | payer MEDICARE, MEDICAID, SELFPAY ==
--- NOTE | 2024-11-06 13:57 | MHC.OFFVIS ---
Vital Signs 11/06/24 14:02 Height 5 ft 2 in Weight 184 lb 15.485 oz BMI 33.8 BP 126/70 Blood Pressure Location Rt brachial Position Sitting Pulse 86 Pulse Source Pulse Oximeter Intake Visit Reasons: Type II diabetes Intake Note: Patient present today to follow up on Type 2 Diabetes Mellitus. Last Diabetic Eye exam: approx 2-3 months Last Podiatry Visit: Patient states she is being seen today. Random Glucose: 112 mg/dl HgA1C: 6.7% 10/09/24 Compliance Specialist Required: Yes Compliance Specialist Language: Open Soaper Tender Services: Compliance Specialist Present Compliance Specialist Name: Chaparrita [id number] Information Interpreted: non-clinical & clinical Accompanied by: Self / Same As Patient Allergies metformin [METFORMIN] Allergy (Intermediate, Verified 11/06/24 14:03) ELEVATED LIVER ENZYMES, liver damage HPI Comments Details: This is a 69-year-old female with a past medical history of osteoarthritis, liver cirrhosis, left breast cancer, obesity, dyslipidemia, hypertension, schizophrenia, multinodular goiter and type 2 diabetes presenting for diabetic management. Romanian video surveyor hydrographic used for visit. She had oophorectomy 01/18/2020. She has left breast cancer. She had a lumpectomy and completed radiation therapy. Reviewed glucometer download Average glucose 149 mg/dL In range 75% Lowest 98 mg/dL Highest 260 mg/dL She reverted to 14 units of NovoLog before meals because she was having some hyperglycemic events. She always administers it before dinner. She administers the Novolog if her blood sugar is over 180 before breakfast and lucnh.. She does not want to use a sensor. She has coffee and a sandwich or smoothie for breakfast. She doesn't usually eat lunch. Sometimes she will have a snack like grapes, banana or yogurt. Dinner is usually rice, pork chops, steak and salad. During the day she drinks water, coffee and sometimes juice. Hemoglobin a1c 6.7% 10/09/24. Current medication regimen: Ozempic 2 mg weekly, Tresiba 85 units daily, Jardiance 10 mg, NovoLog 14 units before meals. Hypoglycemia symptoms: Dizzy and weak. Very rare episodes. No episodes since her last visit. Hyperglycemia symptoms: none Microvascular complications: neuropathy, nephropathy (microalbuminuria). Macrovascular complications: None Hypertension: treated with lisinopril 10 mg. Hyperlipidemia: treated with atorvastatin 20 mg. LDL at goal <100. ROS: Constitutional: No unexplained weight loss, fever, chills. Respiratory: No shortness of breath Cardiovascular: No chest pain Neurologic: No headache, dizziness, syncope Skin: No open wounds. Physical exam: Constitutional: Alert, in no distress. Eyes: Pupils are equal, round and reactive to light. Extraocular muscles intact. Neck: Supple, Full range of motion. No lymphadenopathy. No palpable thyroid mass. Respiratory: Clear to auscultation. Cardiovascular: S1 S2 regular. No murmurs. [facility] Medical History (Updated 11/06/24 @ 14:09 by MARY Singh) Controlled type 2 diabetes mellitus Sleep apnea History of left breast cancer Colitis HTN (hypertension) Hypercalcemia Hirsutism Obesity Dyslipidemia Hypertension Diabetic nephropathy associated with type 2 diabetes mellitus longterm (current) use of insulin Diabetes type 2, uncontrolled Liver cirrhosis Multinodular goiter (nontoxic) Urinary incontinence Bipolar disorder Hyperlipidemia Surgical History History of esophagogastroduodenoscopy (EGD) Hx of removal of ovary Hx of cholecystectomy Hx of colonoscopy Status post laser cataract surgery of both eyes History of tonsillectomy History of tubal ligation Status post left breast lumpectomy History of appendectomy Family History Father History of lung cancer Mother No problems noted. Social History Household Members: None Housing: Apartment Do you presently have visiting nurse or other home services: Yes ([facility] ) Alcohol intake: never Patient Tobacco Use Status: Former Tobacco user Second Hand Smoke Exposure: No service: No Current occupational status: unemployed Current occupation: rt handed Physical Exam Vital Signs: BMI result Body Mass Index 33.8 Results Reviewed Results Reviewed: Laboratory Tests 01/27/24 01/31/24 07/19/24 08:39 13:50 08:45 Creatinine Estimated GFR Hgb A1c (Clinic) 6.4 H Hemoglobin A1c % Triglycerides 83 Cholesterol 137 LDL Cholesterol, Calc 59 HDL Cholesterol 62 Urine Creatinine 77.27 Urine Microalbumin 42.0 Microalb/Creat Ratio 54.3 H 07/19/24 09:48 Creatinine 0.70 Estimated GFR > 60 Hgb A1c (Clinic) Hemoglobin A1c % 6.1 H Triglycerides Cholesterol LDL Cholesterol, Calc HDL Cholesterol Urine Creatinine Urine Microalbumin Microalb/Creat Ratio Assessment & Plan Assessment & Plan (1) Diabetic nephropathy associated with type 2 diabetes mellitus: Code(s): E11.21 - Type 2 diabetes mellitus with diabetic nephropathy Category: Medical (2) Controlled type 2 diabetes mellitus: Code(s): E11.9 - Type 2 diabetes mellitus without complications Category: Medical Qualifiers: Diabetes mellitus terminal system operator insulin use: with fpc use Diabetes mellitus complication status: with kidney complications Diabetes mellitus complication detail: with diabetic microalbuminuria Qualified Code(s): E11.29 - Type 2 diabetes mellitus with other diabetic kidney complication; R80.9 - Proteinuria, unspecified; Z79.4 - intermodal owner operator truck driver (current) use of insulin Plan In summary this is a 69-year-old female with controlled type 2 diabetes with microvascular complications. Continue Ozempic 2 mg weekly. Continue Tresiba 85 units daily. Continue Jardiance 10 mg daily. Continue NovoLog to 14 units before dinner. Administers before breakfast and lunch if glucose is over 180. Lifestyle modifications reviewed with the patient. We discussed complications of uncontrolled type 2 diabetes. Continue annual eye exams. Follow up in 3 months for Type II diabetes. Coding Level of Care Code Est Pt Level 4 (98554) Complex EM visit Add On G2211 Diagnoses Diabetic nephropathy associated with type 2 diabetes mellitus E11.21 Controlled type 2 diabetes mellitus with microalbuminuria, with long-term current use of insulin E11.29; R80.9; Z79.4 Diabetes mellitus terminal system operator insulin use: with fpc use Diabetes mellitus complication status: with kidney complications Diabetes mellitus complication detail: with diabetic microalbuminuria
[2024-11-06 14:02] VITALS: BP 126/70; PULSE 86; BMI 33.8
[2024-11-06 14:13] LABS: Glucose, Whole Blood 112 mg/dL (60-115)
== END 2024-11-06 14:24 | disposition home or self-care (01) ==
PROVIDERS: PCP Internal Medicine Geriatric Medicine; Visit Provider Physician Assistant Medical
DX: E11.21 Type 2 diabetes mellitus with diabetic nephropathy (principal); E11.29 Type 2 diabetes mellitus with other diabetic kidney complication; R80.9 Proteinuria, unspecified; Z79.4 Long term (current) use of insulin

== ENCOUNTER → 2024-11-06 13:38 | Outpatient (BNVA) | payer MEDICARE, MEDICAID, SELFPAY | PROVIDERS: PCP Internal Medicine Geriatric Medicine; Visit Provider Physician Assistant Medical | DX: E11.21 Type 2 diabetes mellitus with diabetic nephropathy (principal); E11.29 Type 2 diabetes mellitus with other diabetic kidney complication; R80.9 Proteinuria, unspecified; Z79.4 Long term (current) use of insulin | CPT/HCPCS: 82947; 99212 ==

== ENCOUNTER 2025-02-03 11:51 | Emergency (ER) | payer MEDICARE, MEDICAID, SELFPAY ==
[2025-02-03 12:00] VITALS: BP 125/55; PULSE 76; RESP 16; TEMP 37.1; O2SAT 98; BMI 33.1
--- NOTE | 2025-02-03 12:00 | ED.GENADULT ---
HPI - General Adult General Chief complaint: General Medical Stated complaint: sore throat Time Seen by Provider: 02/03/25 12:08 Source: patient and public administration teacher (video) Mode of arrival: ambulatory Limitations: language barrier History of Present Illness HPI narrative: 69-year-old female presents complaining of sore throat and left ear pain that began yesterday. She has been taking Tylenol with her last dose at approximately 9:00 a.m. today it that is offered only minimal relief. She denies any fevers or chills nausea or vomiting. She reports that her son is sick with similar symptoms. She has been eating and drinking no she has no other complaints at this time. Related Data Home Medications ?Medication ?Instructions ?Recorded ?Confirmed aspirin 81 mg tablet,delayed 1 tab PO DAILY 08/06/20 09/07/24 release atorvastatin 20 mg tablet 20 mg PO BEDTIME 08/06/20 09/07/24 benztropine 1 mg tablet 1 mg PO BID 08/06/20 09/07/24 fluphenazine decanoate 25 mg/mL 50 mg IM Q3W 08/06/20 09/07/24 injection solution lisinopril 10 mg tablet 10 mg PO DAILY 08/06/20 09/07/24 nortriptyline 75 mg capsule 75 mg PO BEDTIME 08/06/20 09/07/24 omeprazole 20 mg capsule,delayed 20 mg PO DAILY 08/06/20 09/07/24 release zolpidem 5 mg tablet (Ambien) 5 mg PO BEDTIME 08/06/20 09/07/24 polyvinyl alcohol 1.4 % eye drops 1 drp ophthalmic (eye) BID 03/02/21 09/07/24 (Artificial Tears (polyvinyl alcohol)) alcohol swabs 1 pad topical QID 04/23/21 09/07/24 lactulose 10 gram oral packet 10 g PO DAILY 10/12/23 09/07/24 Previous Rx's ?Medication ?Instructions ?Recorded ibuprofen 800 mg tablet 800 mg PO Q8H PRN pain 30 days #90 07/08/21 tabs glucose 4 gram chewable tablet 4 g PO Q15M PRN hypoglycemia #30 09/01/22 tabs pen needle, diabetic 32 gauge x #400 ea 11/23/22 (BD Edilia 2nd Gen Pen Needle) cyclobenzaprine 5 mg tablet 5 mg PO Q8H PRN pain (scale score 02/01/23 7-10) 5 days #14 tabs lidocaine 5 % topical patch 1 patch topical DAILY PRN pain #30 02/01/23 (Lidoderm) ea letrozole 2.5 mg tablet 2.5 mg PO DAILY #90 tabs 01/10/24 lancets 28 gauge (FreeStyle #100 ea 01/17/24 Lancets) blood sugar diagnostic (FreeStyle #100 ea 02/16/24 Lite Strips) flash glucose scanning reader #2 ea 03/12/24 (FreeStyle Anahy 2 [place]) flash glucose sensor (FreeStyle #6 ea 03/14/24 Anahy 2 Sensor kit) insulin degludec 200 unit/mL (3 85 unit (0.425 mL) subcut DAILY #9 04/09/24 mL) subcutaneous pen (Tresiba mL FlexTouch U-200 insulin) acetaminophen 300 mg-codeine 30 mg 1 tab PO Q6H PRN pain #12 tabs 07/01/24 tablet lidocaine 5 % topical patch 1 patch topical DAILY #15 ea 07/01/24 empagliflozin 10 mg tablet 10 mg PO DAILY #30 tabs 09/21/24 (Jardiance) blood-glucose meter (FreeStyle #1 ea 10/09/24 Lite Meter kit) blood sugar diagnostic (OneTouch #100 ea 10/11/24 Verio test strips) blood-glucose meter (OneTouch #1 ea 10/11/24 Verio Flex Meter) lancets 33 gauge (OneTouch Delica #100 ea 10/11/24 Plus Lancet) insulin aspart U-100 100 unit/mL 14 unit (0.14 mL) subcut .before 11/01/24 (3 mL) subcutaneous pen (Novolog dinner #15 mL FlexPen U-100 Insulin aspart) meloxicam 7.5 mg tablet 7.5 mg PO DAILY #30 tabs 12/12/24 semaglutide 2 mg/dose (8 mg/3 mL) 2 mg (0.75 mL) subcut QWEEK #3 mL 01/31/25 subcutaneous pen injector (Ozempic) acetaminophen 500 mg tablet 500 mg PO Q6H PRN pain #20 tabs 02/03/25 amoxicillin 875 mg tablet 875 mg PO BID 10 days #20 tabs 02/03/25 Allergies Allergy/AdvReac Type Severity Reaction Status Date / Time metformin [METFORMIN] Allergy Intermediate ELEVATED Verified 02/03/25 12:02 LIVER ENZYMES, liver damage Review of Systems Constitutional: Constitutional: Denies chills ENT: Reports otalgia, Denies nasal congestion, Denies sinus pressure and Reports sore throat Respiratory: Respiratory: Denies cough PMFSH Past Medical History Medical History Controlled type 2 diabetes mellitus Sleep apnea History of left breast cancer Colitis HTN (hypertension) Hypercalcemia Hirsutism Obesity Dyslipidemia Hypertension 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 Social History Social History Household Members: None Housing: Apartment Do you presently have visiting nurse or other home services: Yes ([facility] ) Alcohol intake: never Patient Tobacco Use Status: Former Tobacco user Second Hand Smoke Exposure: No Advance Directives: No Advance Directives Information Provided: No Do you have a plan to hurt others: No Plan service: No Current occupational status: unemployed Current occupation: rt handed Physical Exam ED Vital Signs: Vital Signs - 24 hr 02/03/25 12:00 Temperature 98.8 F Pulse Rate 76 Respiratory Rate 16 Blood Pressure 125/55 L Pulse Oximetry 98 Oxygen Delivery Method Room Air BMI result Body Mass Index 33.1 Const General: cooperative HENMT Other: Oropharynx is moist. No tongue elevation or edema. The tonsillar pillars are erythematous, left greater than right. There was no evidence of DIRECTOR OF EXHIBIT DEVELOPMENT. No exudate. Speaks full clear sentences. No drooling. auditory canals have a small amount of cerumen, partial visualization of TMs bilaterally is without erythema. Neck Other: No lymphadenopathy, full range of motion Resp Auscultation: clear to auscultation bilaterally Cardio Rate: regular rate Rhythm: regular rhythm Course Course Course Narrative: RME performed by Mamie White PA-C. Patient is a 69 year old assigned female at presenting to the emergency department with a sore throat and left ear pain. Detailed physical exam and review of systems are deferred to the behavioral health clinician. Swabs ordered. Patient placed back in the waiting room pending room availability and results. Reevaluation(s) Reevaluation #1: Viral swabs are negative. Reviewed all discharge instructions. No further questions at this time. Time: 12:52 Medical Decision Making Medical Decision Making [facility] Narrative: 69-year-old female with a 24 hour history of sore throat and left ear pain. Swab is positive for strep. We will treat patient accordingly with amoxicillin. Continue Tylenol. No evidence of DIRECTOR OF EXHIBIT DEVELOPMENT on exam. Remaining viral swabs are pending at this time. Differential Diagnosis Differential Diagnoses: The differential diagnosis associated with the presentation includes DIRECTOR OF EXHIBIT DEVELOPMENT, no evidence of strep Pharyngitis viral syndrome Otitis media Lab Data [facility] Lab Attestation statement: I reviewed the patient's lab results. Labs: Lab Results 02/03/25 Range/Units 12:08 S. pyogenes GrpA APOLINAR Positive A (Negative) Prescription Management I considered prescription management with: Pain Medication and Antibiotic Chronic Conditions Patient?s care impacted by: Diabetes and Hypertension Discharge Plan Discharge Clinical Impression: Strep sore throat Patient Disposition: Home, Self-Care Instructions: Strep Throat (ED) Additional Instructions: Amoxicillin as directed. Finish all antibiotics. Continue Tylenol as directed for pain. Drink plenty of fluids. Warm water and salt gargles Follow-up with your primary care provider. Call this week to schedule a follow-up appointment. Return to the emergency department if you have any worsening of symptoms, or any concerns. Get well soon! Prescriptions: New amoxicillin 875 mg tablet 875 mg PO BID 10 Days Qty: 20 0RF Changed acetaminophen 500 mg tablet 500 mg PO Q6H PRN (Reason: pain) Qty: 20 0RF No Action ibuprofen 800 mg tablet 800 mg PO Q8H PRN (Reason: pain) 30 Days Qty: 90 3RF glucose 4 gram tablet,chewable 4 g PO Q15M PRN (Reason: hypoglycemia) Qty: 30 5RF Rx Instructions: until symptoms of low blood sugar are controlled (DME) pen needle, diabetic [BD Edilia 2nd Gen Pen Needle] 32 gauge x /32 needle See Rx Instructions .MEDSUPPLY Qty: 400 4RF Rx Instructions: 5 times a day (DME) lancets [FreeStyle Lancets] 28 gauge misc See Rx Instructions .Route Qty: 100 4RF Rx Instructions: As directed-tests 3 X/day (DME) FreeStyle Lite Strips Strip See Rx Instructions .MEDSUPPLY Qty: 100 6RF Rx Instructions: 3 times a day (DME) FreeStyle Anahy 2 [place] Misc See Rx Instructions .Route Qty: 2 4RF Rx Instructions: As directed change every 14 days (DME) FreeStyle Anahy 2 Sensor Kit See Rx Instructions .Route Qty: 6 5RF Rx Instructions: As directed change every 14 days Tresiba FlexTouch U-200 200 unit/mL (3 mL) insulin pen 85 unit subcut DAILY Qty: 9 0RF Jardiance 10 mg tablet 10 mg PO DAILY Qty: 30 5RF (DME) lancets [OneTouch Delica Plus Lancet] 33 gauge misc See Rx Instructions .ROUTE .MEDSUPPLY Qty: 100 5RF Rx Instructions: Use as directed to check blood glucose four times daily. (DME) OneTouch Verio test strips Strip See Rx Instructions .ROUTE .MEDSUPPLY Qty: 100 5RF Rx Instructions: Use as directed to check blood glucose four times daily. (DME) blood-glucose meter [OneTouch Verio Flex meter] Misc See Rx Instructions .ROUTE .MEDSUPPLY Qty: 1 0RF Rx Instructions: Use as directed to check blood glucose four times daily. insulin aspart U-100 [Novolog FlexPen U-100 Insulin] 100 unit/mL (3 mL) insulin pen 14 unit subcut .before dinner Qty: 15 3RF meloxicam 7.5 mg tablet 7.5 mg PO DAILY Qty: 30 3RF Ozempic 2 mg/dose (8 mg/3 mL) pen injector 2 mg subcut QWEEK Qty: 3 5RF polyvinyl alcohol [Artificial Tears (polyvin alc)] 1.4 % drops 1 drp ophthalmic (eye) BID nortriptyline 75 mg capsule 75 mg PO BEDTIME zolpidem [Ambien] 5 mg Tablet 5 mg PO BEDTIME atorvastatin 20 mg tablet 20 mg PO BEDTIME aspirin 81 mg tablet,delayed release (DR/EC) 1 tab PO DAILY fluphenazine decanoate 25 mg/mL solution 50 mg IM Q3W lisinopril 10 mg tablet 10 mg PO DAILY benztropine 1 mg tablet 1 mg PO BID omeprazole 20 mg capsule,delayed release(DR/EC) 20 mg PO DAILY letrozole 2.5 mg Tablet 2.5 mg PO DAILY Qty: 90 0RF lidocaine [Lidoderm] 5 % adhesive patch,medicated 1 patch topical DAILY MDD remove after 12 hours PRN (Reason: pain) Qty: 30 0RF Rx Instructions: leave on most painful area for up to 12 hrs cyclobenzaprine 5 mg tablet 5 mg PO Q8H PRN (Reason: pain (scale score 7-10)) 5 Days Qty: 14 0RF acetaminophen-codeine 300-30 mg tablet 1 tab PO Q6H PRN (Reason: pain) Qty: 12 0RF lidocaine 5 % adhesive patch,medicated 1 patch topical DAILY Qty: 15 0RF Rx Instructions: leave on most painful area for up to 12 hrs lactulose 10 gram Packet 10 g PO DAILY alcohol swabs Pads, Medicated 1 pad topical QID (DME) blood-glucose meter [FreeStyle Lite Meter] Kit See Rx Instructions .Route Qty: 1 0RF Rx Instructions: As directed checks 4 X/day Print Language: Bruneian
--- OUTSIDE RECORDS SUMMARY | 2025-02-03 12:09 | XMS_ITS | Encounter Summary ---
Author Organization [employer] Address [address] [facility] [address] [place] [address] Care Team Providers Care Apartment Leasing Consultant Name Role Phone Name, Gopi MORRIS Primary Care Provider [phone] Reason for Visit * Reason Onset Date Comments Appointment Request 11/13/2024 Encounter Details Date Type Department Care Team ([facility] Contact Info) Description 11/13/2024 Telephone [facility] [address] [place], [place] [phone] Name, MD Gopi [address] [place], [place] [phone] Appointment Request Social History Tobacco Use Types Packs/Day Years Used Date Smoking Tobacco: Never Smokeless Tobacco: Never Alcohol Use Standard Drinks/Week Comments Never 0 (1 standard drink = 0.6 oz pur e alcohol) Depression Answer Date Recorded Patient Health Questionnaire-9 Score 0 12/27/2023 Patient Health Questionnaire-9 Score 0 12/27/2023 Last PHQ-9: Questionnaire Data Not on file 0 12/27/2023 Housing Stability Answer Date Recorded What is your housing situation today? I have faye manzo 12/27/[address] you li ve. Do you have problems with any of the following? None of the above 12/27/2023 Food Insecurity Answer Date Recorded Within the past 12 months, y ou worried that your food would run out before you got money to buy more: Never True 12/27/2023 Within the past 12 months,th e food you bought just didn't last and you didn't have enough money to get more: Never True Transportation Answer Date Recorded In the past 12 months, has l ack of transportation kept you from medical appts, meetings, work or from getting things needed for daily living? No 12/27/2023 Utilities Answer Date Recorded In the past 12 months, has t he electric, gas, oil or water company threatened to shut off services in your home? No 12/27/2023 Depression Answer Date Recorded Patient Health Questionnaire-2 Score 0 12/27/2023 Comments Unknown Sex and Gender Information Value Date Recorded Sex Assigned at Female 08/30/2022 10:17 AM EDT Legal Sex Female 10:17 AM EDT Gender Identity Female 08/30/2022 10:17 AM EDT Sexual Orientation Straight 08/30/2022 10 :17 AM EDT documented as of this encounter Miscellaneous Notes * Telephone Encounter - Susan Moody - 11/13/2024 2:55 PM EST Tc meliza Rivera with [facility] requesting schedule f/u appt with pcp in regards peripheral neuropathy. [phone] documented in this encounter Plan of Treatment Upcoming Encounters Date Type Department Care Team (Late st Contact Info) Description 04/24/2025 2:30 PM EDT Office Visit [facility] [address] [place] [id number] Name, [place] Gopi [address] [place] [address] documented as of this encounter Visit Diagnoses Not on filedocumented in this encounter Additional Health Concerns Assessment Noted Time PHQ-9 Depression Total Score: 0 12/27/19 24 11:17 AM EST documented as of this encounter Care Teams Apartment Leasing Consultant Relationship Specialty Start Date End Date Name, MD Gopi [address] [place] [address] PCP - General Family Medicine 02/04/16 [facility] 05/31/22 documented as of this encounter
--- OUTSIDE RECORDS SUMMARY | 2025-02-03 12:09 | XMS_ITS ---
Author Organization [facility] Address [address] [place] [address] Care Team Providers Care Dump Attendant Name Role Phone Name Gopi MORRIS Primary Care Provider UnavailMychal Elizabeth Jr DEVINENISHARONDA Unavailable Unavailable REASON FOR VISIT rectal bleeding,diarrhea Encounters Encounter Location Date Provider Diagnosis [facility] Out[facility] [address] [place], [place] [phone] 10/14/2023 Mychal Almanzar Jr Plan Of Treatment No Information Progress Notes * [place] CHAN[place]: 1955 (69 yo F)Acc No.[id number]:10/14/2023 COLON WITH MAC Patient:?SOFYA ANN ELIZABETH ABERNATHY Provider:?Mychal Almanzar MD :1955???Age:68 Y???Sex:Female D ate:10/14/2023 Address:[address] [place] [address] [address], [id number] Pcp:Gopi Jackson MD Subjective: * Chief Complaints: * ???1. Rectal bleeding,diarrh ea. * Medical History:? Objective: * Vitals:? Assessment: Plan: * Treatment: * * The named appointment provid er may or may not be the originator of this progress note, and it is not deemed complete until electronically signed by the appointment provider. Sign off status: Pending * Provider:?Mychal Almanzar MD Date:?1 12/15/2022 Generated for Manny degroot/Karen/Elodiaitting on:?02/03/2025 12:09 PM EDT
--- OUTSIDE RECORDS SUMMARY | 2025-02-03 12:10 | XMS_ITS ---
Author Organization [facility] Address [address] [place] [phone] Care Team Providers Care Aviation Metalsmith Name Role Phone Name Gopi MORRIS Primary Care Provider Unavailniki e Mychal Almanzar Jr Unavailable DEVINENI, PREVEEN Unavailable Unavailable Encounters Encounter Location Date Provider Diagnosis [facility] [address] [place] [phone] 10/20/2023 Mychal Almanzar Jr Plan Of Treatment No Information Progress Notes * [place] CHANB: 1955 (68 yo F)Acc No.[id number]:10/20/2023 Patient:?SOFYA CASTANEDANOELIZABETH :1955???Age:68 Y???Sex:Female Address:[address] [place] [address] [address], [place] [address] * true * Date:? Generated for Printi zane/Karen/eTransmitting on:?02/03/2025 12:10 PM EDT
--- OUTSIDE RECORDS SUMMARY | 2025-02-03 12:10 | XMS_ITS | Encounter Summary ---
Author Organization [employer] Address [address] [facility] [address] [place] [address] Care Team Providers Care Condenser Tester Name Role Phone Name, Gopi MORRIS Primary Care Provider [phone] Reason for Visit * Reason Onset Date Comments FYI 02/01/2024 Encounter Details Date Type Department Care Team ([facility] Contact Info) Description 02/01/2024 Telephone [facility] [address] [place], [place] [phone] Name, MD Gopi [address] [place], [place] [phone] FYI Social History Tobacco Use Types Packs/Day Years [...] encounter Miscellaneous Notes * Telephone Encounter - Ciera Paz RN - 02/01/2024 4:05 PM EDT FYI * Telephone Encounter - Teresita Valencia - 02/01/2024 3:14 PM EDT Tc from [facility] calling to inform PCP pt get seen yesterday by endocrinology socialist, however the office discharge the pt due to peter control on diabetes, also wanted to inform pt is traveling to [place] from [place] and returning on 03/05 and she is going to put services on hold during traveling. Son its going to be on charge of pt medications during traveling days. Any questions contact Nicole at [phone] documented in this encounter Plan of Treatment Upcoming Encounters Date Type Department Care Team (Late st Contact Info) Description 04/24/2025 2:30 PM EDT Office Visit [facility] [address] [place], [place] [phone] Name, [place] Gopi [address] [place] [address] documented as of this encounter Visit Diagnoses Not on filedocumented in this encounter Additional Health Concerns Assessment Noted Time PHQ-9 Depression Total Score: 0 12/27/19 24 11:17 AM EST documented as of this encounter Care Teams Condenser Tester Relationship Specialty Start Date End Date Name, MD Gopi [address] [place] [address] PCP - General Family Medicine 02/04/16 [facility] 05/31/22 documented as of this encounter
--- OUTSIDE RECORDS SUMMARY | 2025-02-03 12:10 | XMS_ITS | Clinical Summary ---
Author Organization [email or web address] Address [address] [place] [address] [address] [place] [address] Care Team Providers [employer] Name Role Phone Name, Gopi MORRIS Primary Care Provider [phone] Allergies Active Allergy Reactions Criticality Noted Date Comments Metformin 12/28/2018 Other reaction(s): Liver function tests abnormal Metformin Hcl 07/21/2021 Other reaction(s): Unknown Medications benztropine (Cogentin) 1 MG tablet Take 1 tablet by mouth every 12 (twelve) hours. Active lactulose (Chronulac) 10 GM/15ML solution take 15 milliliter by oral route every day PRN 020 Active empagliflozin (Jardiance) 10 MG take 1 tablet by oral route every day in the morning with meal Active fluPHENAZine decanoate (Prolixin) 25 MG/ML injection inject 2 milliliter by IM route every 3 weeks Active letrozole (Femara) 2.5 MG chemo tablet Take 1 tablet by mouth at bed time. Active meloxicam (Mobic) 7.5 MG tablet Take 1 tablet by mouth at bed time. Active nortriptyline (Pamelor) 75 MG capsule take 1 capsule by oral route every night Active Semaglutide, 2 MG/DOSE, (Ozempic, 2 MG/DOSE,) 8 MG/3ML solution pen-injector Inject under the skin once a week. Active zolpidem (Ambien) 5 MG tablet Take 1 tablet by mouth at bedtime. Active Diclofenac Sodium 1 % gelIndications:Ri ght hip pain APPLY TOPICALLY TO AFFECTED AREA OF RIGHT HIP TWICE A DAY NEEDED FOR PAIN 100 g 023 Active tiZANidine (Zanaflex) 2 MG tabletIndications :Pain of right hip Take 1 tablet (2 mg) by mouth every 8 (eight) hours if needed for muscle spasms for up to 10 days. 30 tablet 023 Active albuterol 108 (90 Base) MCG/ACT inhalerIndication s:COVID-19 virus infection Inhale 2 puffs every 6 (six) hours if needed for wheezing. 18 g 11 Active insulin aspart (NovoLOG FLEXPEN) 100 UNIT/ML pen Inject 20 Units under the skin before breakfast, before lunch, and before evening meal. 024 2024 Active Blood Pressure kit Use twice a day at home 1 kit Active Lancet Devices (Autolet) lancing deviceIndications :Type 2 diabetes mellitus with hyperosmolarity without coma, without long-term current use of insulin ([facility]) 1 each by Other route 3 times daily. 1 each 024 Active glucose blood (OneTouch Verio) test strip 1 each by Other route 3 times daily. 100 each 024 Active Lancets (Am[employer]re[employer]olar[employer] Delica Safety Lancing) miscIndications:C ontrolled type 2 diabetes mellitus with other specified complication, unspecified whether assisted insulin use ([facility]) Apply 1 each topically See administration instructions. USE TO TEST BLOOD SUGAR THREE TIMES A DAY. Dx:Controlled type 2 diabetes mellitus with other specified complication, unspecified whether intermediate accountant insulin use ([facility]) 100 each 3 024 Active aspirin (Aspirin Low Dose) 81 MG EC tabletIndications :Hyperlipidemia, unspecified hyperlipidemia type TOME 1 TABLETA POR VIA ORAL TODOS [place] 90 tablet 1 024 Active Acetaminophen Extra Strength 500 MG tablet TAKE 1 TABLET BY MOUTH EVERY 8 HOURS IF NEEDED FOR MODERATE PAIN. 90 tablet 1 024 Active UltiCare Alcohol Swabs 70 % padsIndications:T ype 2 diabetes mellitus with other specified complication, unspecified whether intermediate accountant insulin use ([facility]) USE 1 PAD BY TOPICAL ROUTE 4 TIMES EVERY DAY 100 each 11 025 Active loratadine (Claritin) 10 MG tablet Take 1 tablet (10 mg) by mouth Once per day. 30 tablet 11 025 02/18/ 2026 Active FREESTYLE LITE test stripIndications: Controlled type 2 diabetes mellitus with other specified complication, unspecified whether assisted insulin use ([facility]),Insulin dependent type 2 diabetes mellitus ([facility]) Use to test blood sugar 3 times daily 100 each 12 025 2025 Active Lancets miscIndications:C ontrolled type 2 diabetes mellitus with other specified complication, unspecified whether assisted insulin use ([facility]),Insulin dependent type 2 diabetes mellitus ([facility]) Use to test blood sugar 3 times daily 100 each 025 Active Tresiba FlexTouch 200 UNIT/ML injection INJECT 85 UNITS UNDER THE SKIN AT BEDTIME. (PER DR NAME 9 mL 12 025 Active Glycerin-Hypromel lose-PEG 400 (Artificial Tears) 0.2-0.2-1 % solution PLACE 2-3 DROPS INTO BOTH EYES 3 TIMES DAILY NEEDED 15 mL 3 025 Active omeprazole (PriLOSEC) [address] capsuleIndication s:Heartburn TAKE 1 CAPSULE BY MOUTH EVERY DAY BEFORE BREAKFAST 90 capsule 1 025 Active atorvastatin (Lipitor) 20 MG tabletIndications :Hyperlipidemia, unspecified hyperlipidemia type TOME 1 TABLETA POR VIA ORAL TODOS [place] 90 tablet 1 025 Active lisinopril 10 MG tabletIndications :Hypertension, unspecified type TOME 1 TABLETA POR VIA ORAL TODOS [place] 90 tablet 1 025 Active BD Pen Needle Edilia 2nd Gen 32G X 4 MM miscIndications:C ontrolled type 2 diabetes mellitus with other specified complication, unspecified whether assisted insulin use ([facility]) USE 5 TIMES A DAY WITH INSULINS 100 each 5 025 Active atorvastatin (Lipitor) 20 MG tabletIndications :Hyperlipidemia, unspecified hyperlipidemia type TOME 1 TABLETA POR VIA ORAL TODOS [place] 90 tablet 1 024 2024 Discontinued insulin pen needle (BD Pen Needle Edilia 2nd Gen) 32G x 4 mm miscIndications:C ontrolled type 2 diabetes mellitus with other specified complication, unspecified whether assisted insulin use ([facility]) USE 5 TIMES A DAY WITH INSULINS 100 each 3 024 2024 Discontinued lisinopril 10 MG tabletIndications :Hypertension, unspecified type TAKE 1 TABLET BY MOUTH EVERY DAY 90 tablet 1 024 2024 Discontinued Active Problems Problem Noted Date Diagnosed Date Schizophrenia 12/18/2024 Hypertension 08/29/2023 Pain of right hip 02/16/2023 Assessment & Plan (02/16/2023 2:52 PM EDT): Xray from 02/01/23 shows normal right hip. They did have an incidental finding of calcified uterine leiomyomas. Patient denied vaginal bleeding or abdominal pain. We are doing a trial of Tizanidine for 10 days to see if that can help reduce her acute right hip pain. She is to RTC PRN if symptoms fail to improve or worsen. F/up 4 to 6 weeks. Non-alcoholic cirrhosis 12/14/2022 Gastric polyp 07/29/2021 Lobular carcinoma of left breast 02/06/2019 Low serum vitamin D 09/06/2017 History of cholecystectomy 07/14/2016 Diabetic polyneuropathy 03/08/2016 Heartburn 03/08/2016 Anemia 07/24/2012 Depressive disorder 03/22/2012 Hyperlipidemia 03/22/2012 Type 2 diabetes mellitus 03/22/2012 Resolved Problems Problem Noted Date Diagnosed Date Resolved Date Healthcare maintenance 12/14/202212/27 Diarrhea 09/22/2022 12/27/2023 Malignant tumor of breast 02/02/2019 Neck pain 09/06/2017 12/27/2023 Abscess of breast 01/24/2017 12/27/2023 Encounters Date Type Department Care Team Description 01/17/2025 Refill [facility] [address] [place] [address] Gopi Jackson MD Controlled type 2 diabetes mellitus with other specified complication, unspecified whether assisted insulin use ([facility]) 01/14/2025 Telephone [facility] [address] [place] [address] Rudi Charles MA may recalls 01/05/2025 Refill [facility] [address] [place], [place] [phone] Gopi Jackson MD Hyperlipidemia, unspecified hyperlipidemia type; Hypertension, unspecified type 01/02/2025 Refill [facility] [address] [place] [address] Gopi Jackson MD Heartburn 12/27/2024 Refill [facility] [place] [address] Gopi Jackson MD 12/23/2024 Refill [facility] [place] [address] Gopi Jackson MD 12/18/2024 1:00 PM EST Office Visit [facility] [place] [place] [address] Gopi Jackson MD Controlled type 2 diabetes mellitus with other specified complication, unspecified whether assisted insulin use ([facility]) (Primary Dx); Insulin dependent type 2 diabetes mellitus ([facility]); Schizophrenia, unspecified type (CMS/HCC) 12/11/2024 2:30 PM EST Clinical Support [facility] [place] [address] Natalya Villagomez RN Depressive disorder 12/11/2024 Travel 12/11/2024 Telephone [facility] [place] [address] Gopi Jackson MD Appointment Request 12/06/2024 Telephone [facility] [place] [address] Gopi Jackson MD Call Back Request 11/22/2024 Refill [facility] [address] [facility] [place] [address] Gopi Jackson MD Type 2 diabetes mellitus with other specified complication, unspecified whether intermediate accountant insulin use (CMS/HCC) 11/20/2024 10:30 AM EST Clinical Support [facility] [place] [address] Natalya Villagomez RN Depressive disorder 11/13/2024 Telephone [facility] [address] Gopi Jackson MD Appointment Request 11/06/2024 Orders Only GENERIC EXTERNAL DATA DEPARTMENT Provider, Generic External Data from Last 3 Months Immunizations Name Administration Dates Next Due Influenza High-dose Quadrivalent Preservative Fr ee 08/29/2023 Influenza injectable quadrivalent preservative f ree 12/14/2022 Influenza, IIV3, injectable 07/23/2010 Heydi SARS-CoV-2 Vaccination 01/21/2021 Pfizer Covid-19 Vaccine 12+ 10/08/2021 Pfizer Covid-19 Vaccine 12+ Bivalent 08/30/2022 Pneumococcal Conjugate PCV 20 10/12/2024 Pneumococcal Conjugate PCV 7 01/30/2004 TD (adult), 2 Lf tetanus tox oid, preservative free, adsorbed 01/30/2004 Tdap 07/26/2017 Social History Tobacco Use Types Packs/Day Years Used Date Smoking Tobacco: Never Smokeless Tobacco: Never Tobacco Cessation:Counseling Given: Not Answered Alcohol Use Standard Drinks/Week Comments Never 0 [...] Orientation Straight 08/30/2022 10 :17 AM EDT Last Filed Vital Signs Vital Sign Reading Time Taken Comments Blood Pressure 127/57 12/18/2024 12:51 PM EST Pulse 88 12/18/2024 12:51 PM EST Temperature 36.1 ??C (96.9 ??F) 12/18/2024 1 2:51 PM EST Respiratory Rate 18 12/18/2024 12:5 1 PM EST Oxygen Saturation 96% 12/18/2024 12: 51 PM EST Inhaled Oxygen Concentration - - Weight 83.8 kg (184 lb 12.8 oz) 025 12:51 PM EST Height 157.5 cm (5' 2 ) 07/09/2024 2:09 PM EDT Body Mass Index 33.8 07/09/2024 2:09 PM EDT Plan of Treatment Upcoming Encounters Date Type Department Care Team (Late st Contact Info) Description 04/24/2025 2:30 PM EDT Office Visit [facility] [address] [place] [address] Name, MD Gopi [address] [place] [address] Health Maintenance Due Date Last Done Comments CT Colonography 1955 FIT DNA/Cologuard 1955 FIT 1955 FOBT 1955 Sigmoidoscopy 1955 Hepatitis C Screening 1972 Hepatitis A Vaccines (1 of 2 - Risk 2-dose series) 1973 Zoster Vaccines (1 of 2) 2004 Hepatitis B Vaccines (1 of 3 - Risk 3-dose series) 2014 RSV Patients and Patients Aged 60 years or older (1 - Risk 60-74 years 1-dose series) 2014 COVID-19 Vaccine ( season) 2024 08/30/2022, 10/08/2021, 01/21/2021 Influenza Vaccine (#1) 2024 , 12/14/2022, 07/23/2010 Diabetes: Foot Exam 08/29/2024 08/29/2023, 08/29/2023, 08/29/2023, Additional history exists Depression Screening 12/27/2024 12/27/2023, 12/27/19 SDOH Screening 12/27/2024 12/27/2023 Lipid Panel 01/26/2025 01/27/2024, 10/31, 06/03/2022, Additional history exists Mammogram 02/07/2025 02/08/2024, 12/30, 01/25/2023, Additional history exists Diabetes: Hemoglobin A1C 06/17/2025 025, 07/19/2024, 03/23/2024, Additional history exists Diabetes: Urine Protein Screening 07/19/2025 07/19/2024, 01/27/2024, 01/21/2022 Eye Exam 10/11/2025 10/11/2023 Alcohol/Substance Use Screening 10/12/2025 10/12/2024 Tobacco Screening 10/12/2025 10/12/2024 DTaP/Tdap/Td Vaccines (2 - Td or Tdap) 07/26/2027 07/26/2017, 01/30/2004 Colonoscopy 03/12/2030 03/12/2020 Colorectal Cancer Screening 03/12/2030 Pneumococcal Vaccine: 50+ Years Completed 10/12/2024, 01/30/2004 HIB Vaccines Aged Out No longer eligi ble based on patient's age to complete this topic HPV Vaccines Aged Out No longer eligi ble based on patient's age to complete this topic IPV Vaccines Aged Out No longer eligi ble based on patient's age to complete this topic Meningococcal Vaccine Aged Out No samuel nydia eligible based on patient's age to complete this topic RSV under 20 months Aged Out No longe r eligible based on patient's age to complete this topic Rotavirus Vaccines Aged Out No longer eligible based on patient's age to complete this topic Procedures Procedure Name Priority Date/Time Associated Diagnosis Comments POCT GLYCATED HEMOGLOBIN, TOTAL Routine 12/18/2024 1:04 PM EST Controlled type 2 diabetes mellitus with other specified complication, unspecified whether assisted insulin use ([facility]) POCT GLUCOSE Routine 12/18/2024 1:00 PM EST Controlled type 2 diabetes mellitus with other specified complication, unspecified whether assisted insulin use ([facility]) GLUCOSE, WHOLE BLOOD Routine 11/06/2024 2:09 PM EST ALBUMIN, RANDOM URINE W/CREATININE Routine 07/19/2024 8:45 AM EDT Controlled type 2 diabetes mellitus with other specified complication, unspecified whether assisted insulin use ([facility]) Hypertension, unspecified type Chronic left shoulder pain BI MAMMOGRAM SCREENING TOMOSYNTHESIS BILATERAL Routine 02/08/2024 2:35 PM EDT LIPID PANEL, STANDARD Routine 01/27/2024 8:39 AM EDT HM COLONOSCOPY Routine 03/12/2020 3:02 PM EDT from Last 3 Months or Most Recently Relevant to Health Maintenance Results * (ABNORMAL) POCT HGB A1C (12/18/2024 1:04 PM EST) Hemoglobin A1C 6.8(A) 4.0 - 6.0 % QC Media Lot # [id number] Lot# Expiration Date Blood 12/18/2024 1:04 PM EST us Gopi Jackson MD POINT OF CARE TEST ENTER/EDIT OR DERABLES Final Result * POCT Glucose (12/18/2024 1:00 PM EST) Glucose Blood, POC 141 60 - 200 mg/dL QC Media Lot # [id number] Lot# Expiration Date Blood Capillary blood specimen / Unknown 12/18/2024 1:00 PM EST us Gopi Jackson MD POINT OF CARE TEST ENTER/EDIT OR DERABLES Final Result * Glucose, Whole Blood (11/06/2024 2:09 PM EST) Glucose, Whole Blood 112 60 - 115 mg/dL [facility] Comment:METER #: [id number] Testing performed in the Endocrinology Department [address] , [address], [facility]. 11/06/2024 2:09 PM EST 11/06/2024 2:13 PM EST Generic External Data Provider LAB BLOOD ORDERAB LES Final Result Performing Organization Address [facility] de Phone Number [facility] [address] [place] [phone] * (ABNORMAL) Albumin, Random Urine W/Creatinine (07/19/2024 8:45 AM EDT) Creatinine, Urine 77.27 mg/dL [facility] Microalbumin Urine 42.0 mg/L [facility] Microalbum Creatinine Ratio Ur 54.3(H) <30 ug/mg cr [facility] Comment:Albumin/Creatinine R atio Reference Ranges: Normal: < 30 ug/mg creatinine Microalbuminuria: 30 - 300 ug/mg creatinineClinical Albuminuria: > 300 ug/mg creatinine Urine (Urine, Random) 07/19/2024 8:45 AM EDT 07/19/2024 11:13 AM EDT Gopi Jackson MD LAB URINE ORDERABLES Final Resul t Performing Organization Address [facility] de Phone Number [facility] [address] [place] [phone] * BI Mammogram Screening Tomosynthesis Bilateral (02/08/2024 2:35 PM EDT) Anatomical Region Laterality Modality Breast Bilateral Mammography 02/08/2024 2:35 PM EDT Narrative 02/13/2024 6:44 AM EDT ? [facility] ? [address] ?[place] [address] ? Mammography Report ? Signed ? Patient: Ghosh Garcia,Priscila ?MR#: ?? [id number] ? : 1955 ?Acct:[id number] ? Age/Sex: 68 / F ?ADM Date: 04/10/24 ? Loc: HO.MAMMO ? Attending Dr: Gopi Jackson MD ? Ordering Physician: Gopi Jackson MD ?Results: 2Benign Fi ?? ndings ? Date of Service: 02/08/24 ?Follow Up: 1 Year From Orig ?? inal Mammogram ? Procedure(s): MM tomosynthesis screening BI ?? Accession Number(s): [id number] ? cc: Manuel,Gopi MORRIS ? EXAMINATION: ?? MM SCREENING DIGITAL BREAST TOMOSYNTHESIS, BILATERAL ? CLINICAL INFORMATION: ? Screening. Asymptomatic. ? The patient is status post conservation surgery after a diagnosis of ?? lobular carcinoma of the left breast in 2019. ? COMPARISON: ?? Mammography: This study is compared with prior exams dating back to ?? 2019. ? TECHNIQUE: ?? Digital breast tomosynthesis is performed in both the craniocaudal and ?? mediolateral oblique views along with computer-aided detection (CAD). ?? Synthesized 2D images are generated from the tomosynthesis. ? FINDINGS: ?? There are scattered areas of fibroglandular density (ACR BI-RADS breast ?? composition Category b). ? There are no significant masses, abnormal calcifications, or other ?? abnormalities. ? There are 2 tissue markers in each breast from prior benign ?? percutaneous biopsies. ? There are bilateral, coarse calcifications in each breast. ? There is minor skin thickening of the left breast consistent with a ?? history of prior breast cancer treatment. ?? There are scattered, bilateral benign calcifications in each breast. ? MM/MM tomosynthesis screening BI ?? IMPRESSION: ?? No mammographic evidence of malignancy. ? ASSESSMENT: ? BI-RADS BI-RADS 2 - Benign Findings ? RECOMMENDATION: ?? Routine annual mammography screening. ? 1 year F/U ? This examination should not preclude the clinical evaluation of a ?? suspicious palpable abnormality. ? This patient's information was entered into a reminder system with a ?? target due date for their next mammogram. ? Dictated By: ?Maricel Flores MD ? Signed By: ?<Electronically signed by Maricel Flores MD in OV> ? 02/13/2440 ? DD/ 1435 ? TD/TT: ? Assessment Nurse: ? Procedure Note Moises, Patsy - 02/13/2024 [facility] [address] [place] [address] Mammography Report Signed Patient: Mela Mariscal#: [id number] : 1955cct:[id number] Age/Sex: 68 / FADM Date: 02/08/24 Loc: HO.MAMMO Attending Dr: Gopi Jackson MD Ordering Physician: Gopi Jackson MDResults: 2[facility] Date of Service: 02/08/24Follow Up: 1 Year From Orig [facility] Mammogram Procedure(s): MM tomosynthesis screening BI Accession Number(s): [id number] cc: Gopi Jackson MD EXAMINATION: MM SCREENING DIGITAL BREAST TOMOSYNTHESIS, BILATERAL CLINICAL INFORMATION: Screening. Asymptomatic. The patient is status post conservation surgery after a diagnosis of lobular carcinoma of the left breast in 2019. COMPARISON: Mammography: This study is compared with prior exams dating back to 2019. TECHNIQUE: Digital breast tomosynthesis is performed in both the craniocaudal and mediolateral oblique views along with computer-aided detection (CAD). Synthesized 2D images are generated from the tomosynthesis. FINDINGS: There are scattered areas of fibroglandular density (ACR BI-RADS breast composition Category b). There are no significant masses, abnormal calcifications, or other abnormalities. There are 2 tissue markers in each breast from prior benign percutaneous biopsies. There are bilateral, coarse calcifications in each breast. There is minor skin thickening of the left breast consistent with a history of prior breast cancer treatment. There are scattered, bilateral benign calcifications in each breast. MM/MM tomosynthesis screening BI IMPRESSION: No mammographic evidence of malignancy. ASSESSMENT: BI-RADS BI-RADS 2 - Benign Findings RECOMMENDATION: Routine annual mammography screening. 1 year F/U This examination should not preclude the clinical evaluation of a suspicious palpable abnormality. This patient's information was entered into a reminder system with a target due date for their next mammogram. Dictated By: Maricel Flores MD Signed By: <Electronically signed by Maricel Flores MD in OV> 02/13/24 0640 DD/ 1435 TD/TT: Assessment Nurse: us Gopi Name IMG BI PROCEDURES Final Result * Lipid Panel, Standard (01/27/2024 8:39 AM EDT) Triglycerides 83 <150 mg/dL [facility] Comment:Desirable Triglyceri de: less than 150 mg/dLBorderline High Triglyceride 150-199 mg/dLHigh Triglyceride: 200-499 mg/dLVery High Triglyceride: greater than or equal to 5OO mg/dL Cholesterol 137 <200 mg/dL [facility] Comment:Desirable Cholestero l: less than 200 mg/dLBorderline High Cholesterol: 200-239 mg/dLHigh Cholesterol: greater than 239 mg/dL LDL Cholesterol Calculated 59 <100 mg/dL [facility] Comment:Desirable LDL: less than 100 mg/dLNear Optimal/Above Optimal LDL: 110- 129 mg/dLBorderline High LDL: 130-159 mg/dLHigh LDL: 160-189 mg/dLVery High LDL: greater than or equal to 190 mg/dL HDL Cholesterol 62 >40 mg/dL [facility] Comment:Desirable HDL: great er than 40 mg/dL Note: This HDL assay may give artificially low results in patients with liver disease. 01/27/2024 8:39 AM EDT 01/27/2024 8:39 AM EDT Generic External Data Provider LAB BLOOD ORDERAB LES Final Result [facility] [address] [place] [phone] * Hm Colonoscopy (03/12/2020 3:02 PM EDT) Colonoscopy Normal Normal Narrative SandyEileen castellanos - 03/12/2020 3:02 PM EDT Recommended 10 year follow up ( ) Historical Provider HEALTH MAINTENANCE Final Result from Last 3 Months or Most Recently Relevant to Health Maintenance Insurance [address] [place] [address] [facility]IC[facility] [address], [place] [address] [place] Care Teams [employer] Relationship Specialty Start Date End Date Name, MD Gopi [address] [place] [phone] PCP - General Family Medicine 02/04/16 [facility] 05/31/22
--- OUTSIDE RECORDS SUMMARY | 2025-02-03 12:10 | XMS_ITS | Encounter Summary ---
Author Organization [facility] Address [address] [facility] 7t [place] [address] Care Team Providers Care Draw Furnace Tender Name Role Phone Name, Gopi MORRIS Primary Care Provider [phone] Reason for Visit * Reason Comments Med Change Request Encounter Details Date Type Department Care Team ([facility] Contact Info) Description 10/05/2023 Refill [facility] [address] [place], [place] [phone] Johana Garibay, ANP [address] [place], [place] [phone] Acute bacterial conjunctivitis of both eyes Social History Tobacco Use Types Packs/Day Years Used Date Smoking Tobacco: Never Smokeless Tobacco: Never Alcohol Use Standard Drinks/Week Comments Never 0 (1 standard drink = 0.6 oz pur e alcohol) Housing Stability Answer Date Recorded What is your housing situation today? I have faye manzo 08/23/[address] you li ve. Do you have problems with any of the following? None of the above 08/23/2023 Food Insecurity Answer Date Recorded Within the past 12 months, y ou worried that your food would run out before you got money to buy more: Sometimes True 2022 Within the past 12 months,th e food you bought just didn't last and you didn't have enough money to get more: Sometimes True 08/23/2023 Transportation Answer Date Recorded In the past 12 months, has l ack of transportation kept you from medical appts, meetings, work or from getting things needed for daily living? No 08/23/2023 Utilities Answer Date Recorded In the past 12 months, has t he electric, gas, oil or water company threatened to shut off services in your home? No 08/23/2023 Depression Answer Date Recorded Patient Health Questionnaire-2 Score 0 10/05/2022 Comments Unknown Sex and Gender Information Value Date Recorded Sex Assigned at Female 08/30/2022 10:17 AM EDT Legal Sex Female 10:17 AM EDT Gender Identity Female 08/30/2022 10:17 AM EDT Sexual Orientation Straight 08/30/2022 10 :17 AM EDT documented as of this encounter Plan of Treatment Upcoming Encounters Date Type Department Care Team (Late st Contact Info) Description 04/24/2025 2:30 PM EDT Office Visit [facility] [address] [place] [address] Name, MD Gopi [address] [place] [phone] documented as of this encounter Visit Diagnoses Diagnosis Acute bacterial conjunctivitis of both eyes documented in this encounter Care Teams Draw Furnace Tender Relationship Specialty Start Date End Date Name, MD Gopi [address] [place] [address] PCP - General Family Medicine 02/04/16 [facility] 05/31/22 documented as of this encounter
--- OUTSIDE RECORDS SUMMARY | 2025-02-03 12:10 | XMS_ITS | Patient Health Record ---
Author Organization [facility] Address [address] [place] [address] Care Team Providers Care Lawn Mower Name Role Phone Name Gopi MORRIS Primary Care Provider UnavailMychal Elizabeth Jr Unavailable [phone] SHARONDA WEBBER Unavailable Unavailable Allergies Allergen (clinical drug ingredient) Drug/Non Drug Allergy documented on EMR Reaction Allergy Type Onset Date Status metformin Metformin HCl Unknown Drug Allergy Act puneet Reason For Referral No Information Medications Medication SIG (Take, Route, Frequency, Duration) Notes Start Date End Date Status MiraLax (colon prep) 17 GM/SCOOP mixed with Gatorade or Crystal Light Orally begin at 5:00 p.m. the day before the procedure for 1 day 08/24/2023 Active Nortriptyline HCl 75 MG 1 capsule Orally Once a day for 30 day(s) Active Lactulose 10 GM 1 packet Orally Once a day for 30 day(s) Active Ozempic (1 MG/DOSE) 2 MG/1.5ML 1 mg subcutaneous once a week Active NovoLOG FlexPen 100 UNIT/ML as directed Subcutaneous 30 units tid Active Tresiba FlexTouch 200 UNIT/ML as directed Subcutaneous Active Benztropine Mesylate 1 MG/ML 1 ml Injection Once a day for 30 day(s) Active Atorvastatin Calcium 20 MG 1 tablet Orally Once a day Active Letrozole 2.5 MG 1 tablet Orally Once a day Active fluPHENAZine Decanoate 25 MG/ML INJECT 2ML POR V?A INTRAMUSCULAR EVERY 3 WEEKS Injection for 42 Active MiraLax (colon prep) 8.3 ounce ((238) grams mixed with Gatorade or Crystal Light orally begin at 5:00 p.m. the day before the procedure for 1 day 08/25/2023 Active Aspirin Low Dose 81 MG TOME ALINA TABLETA TODOS LOS D? Oral for 30 Active Dulcolax (colon prep) 5 MG take at 3:00 p.m and 7:00p.m. Orally two tablets twice a day for one day for 1 day 08/25/2023 Active Zolpidem Tartrate 5 MG 1 tablet under th e tongue and allow to dissolve at bedtime as needed Sublingual Once a day Active Lisinopril 10 MG 1 tablet Orally Once a day Active Omeprazole 20 MG 1 capsule 30 minutes before morning meal Orally Once a day for 30 day(s) Active Meloxicam 7.5 MG 1 tablet Orally Once a day for 30 day(s) Active Acetaminophen 500 MG 1 capsule as needed Orally every 6 hrs Active Immunizations Vaccine Route Administration Date Status Comme nts Influenza Unknown 08/19/2023 Administered Influenza Unknown 11/28/2019 Refused Social History Tobacco Use: Social History Observation Description Date Details (start date - stop date) Former Smoker NA - NA Tobacco Use/Smoking Question Answer Notes Patient is a former smoker How long has it been since you last smoked? > 10 years Alcohol Screen Question Answer Notes Did you have a drink containing alcohol in the p ast year? No Points 0 Interpretation Negative Problems Problem Type SNOMED Code ICD Code Onset Dates Problem Status W/U Status Risk Notes Problem 385859125 Colon cancer screening (Z12.11) Active confirmed Problem 43997678 Rectal bleeding (K62.5) Active confirmed Problem Gastric polyp (91277612) Gastric polyp (K31.7) Active confirmed Problem 92140609 Constipation, unspecified constipation type (K59.00) Active confirmed Problem 30783395 Diarrhea, unspecified type (R19.7) Active confirmed Problem 09748327 Cirrhosis of liver without ascites, unspecified hepatic cirrhosis type (K74.60) Active confirmed Problem 502090966 Microscopic colitis, unspecified microscopic colitis type (K52.839) Active confirmed Plan Of Treatment Pending Test Test Name Order Date LIVER PROFILE 08/25/2023 LIVER PROFILE 07/20/2021 CBC w/o DIFF 08/25/2023 CBC w/o DIFF 07/20/2021 PROTHROMBIN TIME (PT, INR) 08/25/2023 PROTHROMBIN TIME (PT, INR) 07/20/2021 US ABDOMEN COMP WITH ELASTOGRAPHY 2022 Liver Fibrosis Pnl 08/25/2023 Liver Fibrosis Pnl 07/20/2021 Future Test Test Name Order Date COLONOSCOPY 11/28/2019 UPPER GI ENDOSCOPY 07/20/2021 COLONOSCOPY 08/24/2023 Insurance Providers Payer Name Payer Address Payer Phone Subscriber Number Group Number Insured Name Patient Relationship to Insured Coverage Start Date Coverage End Date [place] OF [place] [address] [place] [address] [id number] KAY CHAN Self - patient is the insured MEDICAID OF [employer] [address] [facility] [address] [id number] KAY CHAN Self - patient is the insured Medical (General) History Medical History History ICD Code HUEY hypertension vertigo diabetes mellitus II breast cancer elevated cholesterol bipolar disorder anemia urinary incontinence depression Screening colonoscopy 03/19, no polyps, t en-year followup EGD 07/21, no varices, portal hypertensive gastropathy, Caal's esophagus, or H. pylori. Elevated liver function test s, lobular liver by imaging consistent with cirrhosis, history of fatty liver, noninvasive fibrosis testing F1-F2 07/21 Surgical History Surgery Date(Month/Year) cholecystectomy appendectomy tonsillectomy tubal ligation lumpectomy, left breast
--- OUTSIDE RECORDS SUMMARY | 2025-02-03 12:10 | XMS_ITS | Encounter Summary ---
Author Organization [employer] [facility] Address [address] [place] [address] 7t [place] [address] Care Team Providers Care Residential Life Director Name Role Phone Name, Gopi MORRIS Primary Care Provider [phone] Encounter Details Date Type Department Care Team ([facility] Contact Info) Description 03/31/2023 Abstract [facility] [address] [place] [address] [phone] Gopi Jackson MD [address] [place] [address] [phone] Social History Tobacco Use Types Packs/Day Years Used Date Smoking Tobacco: Never Smokeless Tobacco: Never Alcohol Use Standard Drinks/Week Comments Never 0 (1 standard drink = 0.6 oz pur e alcohol) Depression Answer Date Recorded Patient Health Questionnaire-2 [...] Description 04/24/2025 2:30 PM EDT Office Visit [facility] [address] [place] [address] [phone] Gopi Jackson MD [address] [place] [address] [phone] documented as of this encounter Procedures Procedure Name Priority Date/Time Associated Diagnosis Comments HM COLONOSCOPY Routine 03/12/2020 3:02 PM EDT documented in this encounter Results * Hm Colonoscopy (03/12/2020 3:02 PM EDT) Colonoscopy Normal Normal Narrative Eileen Delgado - 03/12/2020 3:02 PM EDT Recommended 10 year follow up ( ) Historical Provider HEALTH MAINTENANCE Final Result documented in this encounter Visit Diagnoses Not on filedocumented in this encounter Care Teams Residential Life Director Relationship Specialty Start Date End Date Name, MD Gopi [address] [place] [address] PCP - General Family Medicine 02/04/16 [facility] 05/31/22 documented as of this encounter
--- OUTSIDE RECORDS SUMMARY | 2025-02-03 12:10 | XMS_ITS | Clinical Summary ---
Author Organization [employer] [employer] [facility] [place] [address] Care Team Providers Care Teletype Adjuster Name Role Phone Unavailable Primary Care Provider Unavailabl e Social History Tobacco Use Types Packs/Day Years Used Date Smoking Tobacco: Never Assessed Comments Unknown Sex and Gender Information Value Date Recorded Sex Assigned at Not on file Legal Sex Female 9:06 PM EST Gender Identity Not on file Sexual Orientation Not on file Plan of Treatment Health Maintenance Due Date Last Done Comments Breast Cancer Screening 1955 DTaP,Tdap,and Td Vaccines (1 - Tdap) 1973 Pneumococcal Vaccine: 50+ Ye ars (1 of 1 - PCV) 2004 Zoster Vaccines (1 of 2) 2004 Colorectal Cancer Screening: Colonoscopy 11/25/2023 Depression Screening 11/25/2023 Falls Risk Assessment 11/25/2023 Hepatitis C Screening 11/25/2023 Osteoporosis Screening (Bone Density Screening) 11/25/2023 Social Influencers of Health Screening 11/25/2023 COVID-19 Vaccine ( - 2023-2 5 season) 2024 Influenza Vaccine (#1) 2024 RSV Immunization Adult Patie nts (1 - 1-dose 75+ series) 2029 HIB Vaccines Aged Out No longer eligi ble based on patient's age to complete this topic HPV Vaccines Aged Out No longer eligi ble based on patient's age to complete this topic Hepatitis A Vaccines Aged Out No long er eligible based on patient's age to complete this topic Hepatitis B Vaccines Aged Out No long er eligible based on patient's age to complete this topic IPV Vaccines Aged Out No longer eligi ble based on patient's age to complete this topic MMR Vaccines Aged Out No longer eligi ble based on patient's age to complete this topic Meningococcal ACWY Vaccine Aged Out N o longer eligible based on patient's age to complete this topic Meningococcal B Vacine Aged Out No lo nger eligible based on patient's age to complete this topic RSV Immunization Patients Un cely 20 months Aged Out No longer eligible b ased on patient's age to complete this topic Varicella Vaccines Aged Out No longer eligible based on patient's age to complete this topic
--- OUTSIDE RECORDS SUMMARY | 2025-02-03 12:10 | XMS_ITS ---
Author Organization [facility] Address [address] [place] [phone] Care Team Providers Care School Examiner Name Role Phone Name Gopi MORRIS Primary Care Provider Unavailniki e Mychal Almanzar Jr DEVINENI, PREVEEN Unavailable Unavailable REASON FOR VISIT update on ozempic Encounters Encounter Location Date Provider Diagnosis [facility] [address] [place] [address] 10/12/2023 Mychal Almanzar Jr Plan Of Treatment No Information Progress Notes * [place] CHAN[place]: 1955 (68 yo F)Acc No.[id number]:10/12/2023 Patient:?COWARTCASSIE JUAREZMAGAlexandru JOSEMANUEL :1955???Age:68 Y???Sex:Female Address:[address] [place] [address] * true * Date:? Generated for Printi zane/Karen/eTransmitting on:?02/03/2025 12:09 PM EDT
[2025-02-03 12:21] LABS: IDNOW Serial# 55D5AD1C; Strep A Nucleic Acid Positive (Negative)
[2025-02-03 12:51] LABS: Influenza A PCR NEGATIVE (Negative); Influenza B PCR NEGATIVE (Negative); Resp Syncy Virus RNA Qual PCR NEGATIVE (Negative); SARS COV2 PCR INHOUSE NEGATIVE (Negative)
[2025-02-03 13:01] VITALS: BP 125/55; PULSE 76; RESP 16; TEMP 37.1; O2SAT 98
== END 2025-02-03 13:01 | disposition home or self-care (01) ==
PROVIDERS: Physician Assistant Medical; Emergency Provider Emergency Medicine; PCP Internal Medicine Geriatric Medicine
DX: J02.0 Streptococcal pharyngitis (principal); H92.02 Otalgia, left ear; Z03.818 Encounter for observation for suspected exposure to other biological agents ruled out
CPT/HCPCS: 0241U; 87651; 99282; 99283

== ENCOUNTER 2025-02-05 13:36 | Outpatient (AMB) | payer MEDICARE, MEDICAID, SELFPAY ==
[2025-02-05 13:49] VITALS: BP 122/72; PULSE 78; O2SAT 96; BMI 33.5
--- NOTE | 2025-02-05 13:49 | MHC.OFFVIS ---
Vital Signs 02/05/25 13:49 Height 5 ft 2 in Weight 182 lb 15.739 oz BMI 33.5 BP 122/72 Blood Pressure Location Rt brachial Position Sitting Pulse 78 Pulse Source Pulse Oximeter Pulse Oximetry (%) 96 Oxygen Delivery Method Room Air Intake Visit Reasons: Type II diabetes Intake Note: Patient present today to follow up on Type 2 Diabetes Mellitus. 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 Customer Greeter Required: Yes Customer Greeter Name: Deuce [phone] Allergies metformin [METFORMIN] Allergy (Intermediate, Verified 02/05/25 13:57) ELEVATED LIVER ENZYMES, liver damage HPI Comments Details: This is a 69-year-old female with a past medical history of osteoarthritis, liver cirrhosis, left breast cancer, obesity, dyslipidemia, hypertension, schizophrenia, multinodular goiter and type 2 diabetes presenting for diabetic management. Persian video deli/bakery associate used for visit. She had oophorectomy 01/18/2020. She has a history of left breast cancer. She had a lumpectomy and completed radiation therapy. Reviewed glucometer download Average glucose 145 In range 87% Highest to 12 Lowest 77 Average 2.2 readings per day She does not want to use a sensor. She has coffee and a sandwich or smoothie for breakfast. She doesn't usually eat lunch. Sometimes she will have a snack like grapes, banana or yogurt. Dinner is usually rice, pork chops, steak and salad. During the day she drinks water, coffee and sometimes juice. Hemoglobin a1c 7% 01/08/2025. Current medication regimen: Ozempic 2 mg weekly, Tresiba 85 units in the morning, Jardiance 10 mg, NovoLog 14 units before meals. She always administers NovoLog before dinner. She administers it before breakfast and lunch if her glucose is over 180. Hypoglycemia symptoms: Dizzy and weak. Very rare episodes. No episodes since her last visit. Hyperglycemia symptoms: none Microvascular complications: neuropathy, nephropathy (microalbuminuria). Macrovascular complications: None Hypertension: treated with lisinopril 10 mg. Hyperlipidemia: treated with atorvastatin 20 mg. LDL at goal <100. ROS: Constitutional: No unexplained weight loss, fever, chills. Respiratory: No shortness of breath Cardiovascular: No chest pain Neurologic: No headache, dizziness, syncope Skin: No open wounds. Physical exam: Constitutional: Alert, in no distress. Eyes: Pupils are equal, round and reactive to light. Extraocular muscles intact. Neck: Supple, Full range of motion. No lymphadenopathy. Respiratory: Clear to auscultation. Cardiovascular: S1 S2 regular. No murmurs. Right foot: Warm and well perfused. No clubbing, cyanosis or edema. Palpable DP pulse. Decreased sensation to vibration. Intact sensation to monofilament. No open wounds. Left foot: Warm and well perfused. No clubbing, cyanosis or edema. Palpable DP pulse. Decreased sensation to vibration. Intact sensation to monofilament. No open wounds. [facility] Medical History Controlled type 2 diabetes mellitus Sleep apnea History of left breast cancer Colitis HTN (hypertension) Hypercalcemia Hirsutism Obesity Dyslipidemia Hypertension Diabetic nephropathy associated with type 2 diabetes mellitus halfway (current) use of insulin Diabetes type 2, uncontrolled Liver cirrhosis Multinodular goiter (nontoxic) Urinary incontinence Bipolar disorder Hyperlipidemia Surgical History History of esophagogastroduodenoscopy (EGD) Hx of removal of ovary Hx of cholecystectomy Hx of colonoscopy Status post laser cataract surgery of both eyes History of tonsillectomy History of tubal ligation Status post left breast lumpectomy History of appendectomy Family History Father History of lung cancer Mother No problems noted. Social History Household Members: None Housing: Apartment Do you presently have visiting nurse or other home services: Yes ([facility] ) Alcohol intake: never Patient Tobacco Use Status: Former Tobacco user Second Hand Smoke Exposure: No service: No Current occupational status: unemployed Current occupation: rt handed Physical Exam Vital Signs: Last Vital Signs Pulse 78 02/05/25 13:49 BP 122/72 02/05/25 13:49 Pulse Ox 96 02/05/25 13:49 Oxygen Delivery Method Room Air 02/05/25 13:49 BMI result Body Mass Index 33.5 Results Reviewed Results Reviewed: Laboratory Last Values Glucose (Clinic) 117 mg/dL (60-115) H 02/05/25 14:10 Laboratory Tests 01/27/24 01/31/24 07/19/24 08:39 13:50 08:45 Creatinine Estimated GFR Hgb A1c (Clinic) 6.4 H Hemoglobin A1c % Triglycerides 83 Cholesterol 137 LDL Cholesterol, Calc 59 HDL Cholesterol 62 Urine Creatinine 77.27 Urine Microalbumin 42.0 Microalb/Creat Ratio 54.3 H 07/19/24 09:48 Creatinine 0.70 Estimated GFR > 60 Hgb A1c (Clinic) Hemoglobin A1c % 6.1 H Triglycerides Cholesterol LDL Cholesterol, Calc HDL Cholesterol Urine Creatinine Urine Microalbumin Microalb/Creat Ratio Assessment & Plan Assessment & Plan (1) Diabetic nephropathy associated with type 2 diabetes mellitus: Code(s): E11.21 - Type 2 diabetes mellitus with diabetic nephropathy Category: Medical (2) Controlled type 2 diabetes mellitus: Code(s): E11.9 - Type 2 diabetes mellitus without complications Category: Medical Qualifiers: Diabetes mellitus tap and die maker technician insulin use: with tap and die maker technician use Diabetes mellitus complication status: with kidney complications Diabetes mellitus complication detail: with diabetic microalbuminuria Qualified Code(s): E11.29 - Type 2 diabetes mellitus with other diabetic kidney complication; R80.9 - Proteinuria, unspecified; Z79.4 - halfway (current) use of insulin Plan In summary this is a 69-year-old female with controlled type 2 diabetes with microvascular complications. Continue Ozempic 2 mg weekly. Continue Tresiba 85 units daily. Continue Jardiance 10 mg daily. Continue NovoLog to 14 units before dinner. Administers before breakfast and lunch if glucose is over 180. Lifestyle modifications reviewed with the patient. We discussed complications of uncontrolled type 2 diabetes. Continue annual eye exams. The patient will return for fasting labs. Follow up in 3 months for Type II diabetes. Orders: Orders Creatinine Today E11.9 - Type 2 diabetes mellitus without complications Alanine Aminotransferase Today E11.29 - Type 2 diabetes mellitus with other diabetic kidney complication, R80.9 - Proteinuria, unspecified, Z79.4 - halfway (current) use of insulin B Type Natriuretic Peptide Today E11.9 - Type 2 diabetes mellitus without complications Lipid Panel Today E78.5 - Hyperlipidemia, unspecified Platelet Count Today E11.9 - Type 2 diabetes mellitus without complications Aspartate Amino Transferase Today E11.29 - Type 2 diabetes mellitus with other diabetic kidney complication, R80.9 - Proteinuria, unspecified, Z79.4 - halfway (current) use of insulin Microalbumin, Random (w Creat) Today E11.9 - Type 2 diabetes mellitus without complications Medications: New polyvinyl alcohol 1.4% (Artificial Tears (polyvinyl alcohol)) 1 drp ophthalmic (eye) BID 15 mL 5RF Coding Level of Care Code Est Pt Level 4 (43497) Complex EM visit Add On G2211 Diagnoses Diabetic nephropathy associated with type 2 diabetes mellitus E11.21 Controlled type 2 diabetes mellitus with microalbuminuria, with long-term current use of insulin E11.29; R80.9; Z79.4 Diabetes mellitus tap and die maker technician insulin use: with skilled nursing use Diabetes mellitus complication status: with kidney complications Diabetes mellitus complication detail: with diabetic microalbuminuria
[2025-02-05 14:15] LABS: Glucose, Whole Blood 117 mg/dL (60-115)
--- OUTSIDE RECORDS SUMMARY | 2025-02-05 16:33 | XMS_ITS | Encounter Summary ---
Author Organization [facility] Address [address] [place] [address] 7t [place] [address] Care Team Providers Care Lawn Service Worker Name Role Phone Name, Gopi MORRIS Primary Care Provider [phone] Encounter Details Date Type Department Care Team ([facility] Contact Info) Description 03/31/2023 Abstract [facility] [address] [place] [address] [phone] Gopi Jackson MD [address] [place] [address] [phone] Social History Tobacco Use Types Packs/Day Years [...] Description 04/24/2025 2:30 PM EDT Office Visit [facility] [address] [place] [address] [phone] Gopi Jackson MD [address] [place] [address] [phone] documented as of this encounter Procedures Procedure [...] on filedocumented in this encounter Care Teams Lawn Service Worker Relationship Specialty Start Date End Date Name, MD Gopi [address] [place] [address] PCP - General Family Medicine 02/04/16 [facility] 05/31/22 documented as of this encounter
--- OUTSIDE RECORDS SUMMARY | 2025-02-05 16:33 | XMS_ITS | Encounter Summary ---
Author Organization [employer] Address [address] [facility] 7t [place] [address] Care Team Providers Care White Shoe Examiner Name Role Phone Name, Gopi MORRIS Primary Care Provider [phone] Reason for Visit * Reason Onset Date Comments Appointment Request 11/13/2024 Encounter Details Date Type Department Care Team ([facility] Contact Info) Description 11/13/2024 Telephone [facility] [address] [place], [place] [phone] Name, MD Gopi [address] [place], [place] [phone] Appointment Request Social History Tobacco Use Types [...] 2:55 PM EST Tc meliza Rivera with [facility] requesting schedule f/u appt with pcp in regards peripheral neuropathy. [phone] documented in this encounter Plan of Treatment Upcoming Encounters Date Type Department Care Team (Late st Contact Info) Description 04/24/2025 2:30 PM EDT Office Visit [facility] [address] [place] [phone] Name, MD Gopi [address] [place] [address] documented as of this encounter Visit Diagnoses Not on filedocumented in this encounter Additional Health Concerns Assessment Noted Time PHQ-9 Depression Total Score: 0 12/27/19 24 11:17 AM EST documented as of this encounter Care Teams White Shoe Examiner Relationship Specialty Start Date End Date Name, MD Gopi [address] [place] [address] PCP - General Family Medicine 02/04/16 [facility] 05/31/22 documented as of this encounter
--- OUTSIDE RECORDS SUMMARY | 2025-02-05 16:33 | XMS_ITS ---
Author Organization [facility] Address [address] [place] [address] Care Team Providers Care Biodiesel Plant Operations Engineer Name Role Phone Name Gopi MORRIS Primary Care Provider UnavailMychal Elizabeth Jr DEVINENISHARONDA Unavailable Unavailable REASON FOR VISIT rectal bleeding,diarrhea Encounters Encounter Location Date Provider Diagnosis [facility] [address] [place], [place] [phone] 10/14/2023 Mychal Almanzar Jr Plan Of Treatment No Information Progress Notes * [place] CHANB: 1955 (69 yo F)Acc No.[id number]:10/14/2023 COLON WITH MAC Patient:?SOFYA ANN ELIZABETH ABERNATHY Provider:?Mychal Almanzar MD :1955???Age:68 Y???Sex:Female D ate:10/14/2023 Address:[address] [place] [address] [address], [facility] Pcp:Gopi Jackson MD Subjective: * Chief Complaints: [...] MD Date:?1 12/15/2022 Generated for Manny degroot/Karen/Elodiaitting on:?02/05/2025 04:33 PM EDT
--- OUTSIDE RECORDS SUMMARY | 2025-02-05 16:33 | XMS_ITS ---
Author Organization [facility] Address [address] [place] [address] Care Team Providers Care School Supervisor Name Role Phone Name Gopi MORRIS Primary Care Provider Unavailniki e Mychal Almanzar Jr DEVINENI, PREVEEN Unavailable Unavailable REASON FOR VISIT update on ozempic Encounters Encounter Location Date Provider Diagnosis [facility] [address] [place] [phone] 10/12/2023 Mychal Almanzar Jr Plan Of Treatment No Information Progress Notes * [place] CHANB: 1955 (68 yo F)Acc No.[id number]:10/12/2023 Patient:?COWARTCASSIE JUAREZ Alexandru JOSEMANUEL :1955???Age:68 Y???Sex:Female Address:[address], [place] [address] * true * Date:? Generated for Printi ng/Karen/eTransmitting on:?02/05/2025 04:33 PM EDT
--- OUTSIDE RECORDS SUMMARY | 2025-02-05 16:33 | XMS_ITS | Clinical Summary ---
Author Organization [employer] [facility] [place] [address] Care Team Providers Care Tax Specialist Name Role Phone Unavailable Primary Care Provider [...] age to complete this topic Meningococcal B Vaccine Aged Out No l onger eligible based on patient's age to complete this topic RSV Immunization Patients Un cely 20 months Aged Out No longer eligible b ased on patient's age to complete this topic Varicella Vaccines Aged Out No longer eligible based on patient's age to complete this topic
--- OUTSIDE RECORDS SUMMARY | 2025-02-05 16:33 | XMS_ITS | Encounter Summary ---
Author Organization [employer] Address [address] [facility] 7t [place] [address] Care Team Providers Care Skiff Operator Name Role Phone Name, Gopi MORRIS Primary Care Provider [phone] Reason for Visit * Reason Comments Med Change Request Encounter Details Date Type Department Care Team ([facility] Contact Info) Description 10/05/2023 Refill [facility] [address] [place], [place] [phone] Johana Garibay, ANP [address] [place], [place] [phone] Acute bacterial conjunctivitis of both eyes Social [...] 04/24/2025 2:30 PM EDT Office Visit [facility] [address] [place] [address] Name, MD Gopi [address] [place] [address] documented as of this encounter Visit Diagnoses Diagnosis Acute bacterial conjunctivitis of both eyes documented in this encounter Care Teams Skiff Operator Relationship Specialty Start Date End Date Name, MD Gopi [address] [place] [address] PCP - General Family Medicine 02/04/16 [facility] 05/31/22 documented as of this encounter
--- OUTSIDE RECORDS SUMMARY | 2025-02-05 16:34 | XMS_ITS | Encounter Summary ---
Author Organization [employer] Address [address] [facility] 7t [place] [address] Care Team Providers Care Couture Dressmaker Name Role Phone Name, Gopi MORRIS Primary Care Provider [phone] Encounter Details Date Type Department Care Team ([facility] Contact Info) Description 02/05/2025 Orders Only GENERIC EXTERNAL DATA DEPARTMENT Provider, Generic External Data Social History Tobacco Use Types Packs/Day Years [...] Description 04/24/2025 2:30 PM EDT Office Visit [facility] [address] [place] [address] Name, MD Gopi [address] [place] [address] documented as of this encounter Procedures Procedure Name Priority Date/Time Associated Diagnosis Comments GLUCOSE, WHOLE BLOOD Routine 02/05/2025 2:10 PM EDT documented in this encounter Results * (ABNORMAL) Glucose, Whole Blood (02/05/2025 2:10 PM EDT) Glucose, Whole Blood 117(H) 60 - 115 mg/dL [facility] Comment:METER #: [id number] Testing performed in the Endocrinology Department [address] , [address], [facility]. 02/05/2025 2:10 PM EDT 02/05/2025 2:15 PM EDT us Generic External Data Provider LAB BLOOD ORDERAB LES Final Result [facility] [address] [place] [address] [phone] documented in this encounter Visit Diagnoses Not on filedocumented in this encounter Additional Health Concerns Assessment Noted Time PHQ-9 Depression Total Score: 0 12/27/19 24 11:17 AM EST documented as of this encounter Care Teams Couture Dressmaker Relationship Specialty Start Date End Date Name, MD Gopi [address] [place], [place] [phone] PCP - General Family Medicine 02/04/16 [facility] 05/31/22 documented as of this encounter
--- OUTSIDE RECORDS SUMMARY | 2025-02-05 16:34 | XMS_ITS | Patient Health Record ---
Author Organization [facility] Address [address] [place] [address] Care Team Providers Care Pantograph Machine Operator Name Role Phone Name Gopi MORRIS Primary Care Provider UnavailMychal Elizabeth Jr Unavailable [phone] SHARONDA WEBBER Unavailable Unavailable Allergies Allergen [...] Problem Status W/U Status Risk Notes Problem 523665290 Colon cancer screening (Z12.11) Active confirmed Problem 03954923 Rectal bleeding (K62.5) Active confirmed Problem Gastric polyp (41561585) Gastric polyp (K31.7) Active confirmed Problem 47798178 Constipation, unspecified constipation type (K59.00) Active confirmed Problem 53631550 Diarrhea, unspecified type (R19.7) Active confirmed Problem 30076631 Cirrhosis of liver without ascites, unspecified hepatic cirrhosis type (K74.60) Active confirmed Problem 119776367 Microscopic colitis, unspecified microscopic colitis type (K52.839) [...] Start Date Coverage End Date MEDICARE OF [place] [address] VANESSA ARDON [address] [id number] KAY CHAN Self - patient is the insured MEDICAID OF [employer] [address] [facility] [place] [phone] [id number] KAY CHAN Self - patient is the [...]
--- OUTSIDE RECORDS SUMMARY | 2025-02-05 16:34 | XMS_ITS | Encounter Summary ---
Author Organization [facility] Address [address] [facility] 7t [place] [address] Care Team Providers Care Java Programming Professor Name Role Phone Name, Gopi MORRIS Primary Care Provider [phone] Reason for Visit * Reason Onset Date Comments FYI 02/01/2024 Encounter Details Date Type Department Care Team ([facility] Contact Info) Description 02/01/2024 Telephone [facility] [address] [place], [place] [phone] Name, MD Gopi [address] [place], [place] [phone] FYI Social History Tobacco Use Types Packs/Day [...] wanted to inform pt is traveling to [place] from 02/18 and returning on 03/05 and she is going to put services on hold during traveling. Son its going to be on charge of pt medications during traveling days. Any questions contact Nicole at [phone] documented in this encounter Plan of Treatment Upcoming Encounters Date Type Department Care Team (Late st Contact Info) Description 04/24/2025 2:30 PM EDT Office Visit [facility] [address] [place], [place] [phone] Name, MD Gopi [address] [place] [address] documented as of this encounter Visit Diagnoses Not on filedocumented in this encounter Additional Health Concerns Assessment Noted Time PHQ-9 Depression Total Score: 0 12/27/19 24 11:17 AM EST documented as of this encounter Care Teams Java Programming Professor Relationship Specialty Start Date End Date Name, MD Gopi [address] [place] [address] PCP - General Family Medicine 02/04/16 [facility] 05/31/22 documented as of this encounter
--- OUTSIDE RECORDS SUMMARY | 2025-02-05 16:34 | XMS_ITS | Clinical Summary ---
Author Organization [employer] Address [address] [place] [address] 7t [place] [address] Care Team Providers Care Drophammer Operator Name Role Phone Name, Gopi MORRIS Primary Care Provider [phone] Allergies Active Allergy Reactions Criticality Noted Date [...] coma, without long-term current use of insulin ([facility]) 1 each by Other route 3 times daily. 1 each 024 Active glucose blood (OneTouch Verio) test strip 1 each by Other route 3 times daily. 100 each 024 Active Lancets (TricycleToMetabacus Delica Safety Lancing) miscIndications:C ontrolled type 2 diabetes mellitus with other specified complication, unspecified whether shelter insulin use ([facility]) Apply 1 each topically See administration instructions. USE TO TEST BLOOD SUGAR THREE TIMES A DAY. Dx:Controlled type 2 diabetes mellitus with other specified complication, unspecified whether exterminator helper termite insulin use ([facility]) 100 each 3 024 Active aspirin (Aspirin [...] mellitus with other specified complication, unspecified whether exterminator helper termite insulin use ([facility]) USE 1 PAD BY TOPICAL ROUTE 4 TIMES EVERY DAY 100 each 11 025 Active loratadine (Claritin) 10 MG tablet Take 1 tablet (10 mg) by mouth Once per day. 30 tablet 11 025 02/18/ 2026 Active FREESTYLE LITE test stripIndications: Controlled type 2 diabetes mellitus with other specified complication, unspecified whether shelter insulin use ([facility]),Insulin dependent type 2 diabetes mellitus ([facility]) Use to test blood sugar 3 times daily 100 each 12 025 2025 Active Lancets miscIndications:C ontrolled type 2 diabetes mellitus with other specified complication, unspecified whether shelter insulin use ([facility]),Insulin dependent type 2 diabetes mellitus ([facility]) Use to test blood sugar 3 times [...] mellitus with other specified complication, unspecified whether shelter insulin use ([facility]) USE 5 TIMES A DAY WITH INSULINS 100 each 5 025 Active atorvastatin (Lipitor) 20 MG tabletIndications :Hyperlipidemia, unspecified hyperlipidemia type TOME 1 TABLETA POR VIA ORAL TODOS [place] 90 tablet 1 024 2024 Discontinued insulin pen needle (BD Pen Needle Edilia 2nd Gen) 32G x 4 mm miscIndications:C ontrolled type 2 diabetes mellitus with other specified complication, unspecified whether shelter insulin use ([facility]) USE 5 TIMES A DAY WITH INSULINS [...] Encounters Date Type Department Care Team Description 02/05/2025 Orders Only GENERIC EXTERNAL DATA DEPARTMENT Provider, Generic External Data 02/03/2025 Orders Only GENERIC EXTERNAL DATA DEPARTMENT Provider, Generic External Data 01/17/2025 Refill [facility] [address] [place] [address] Name, MD Gopi Controlled type 2 diabetes mellitus with other specified complication, unspecified whether exterminator helper termite insulin use ([facility]) 01/14/2025 Telephone [facility] [address] [facility] [place] [phone] Rudi Charles MA may recalls 01/05/2025 Refill [facility] [address] [place] [address] Gopi Jackson MD Hyperlipidemia, unspecified hyperlipidemia type; Hypertension, unspecified type 01/02/2025 Refill [facility] [address] [place] [address] Gopi Jackson MD Heartburn 12/27/2024 Refill [facility] [address] [place] [address] Gopi Jackson MD 12/23/2024 Refill [facility] [address] [place] [address] Gopi Jackson MD 12/18/2024 1:00 PM EST Office Visit [address] [address] Gopi Jackson MD Controlled type 2 diabetes mellitus with other specified complication, unspecified whether exterminator helper termite insulin use ([facility]) (Primary Dx); Insulin dependent type 2 diabetes mellitus (CMS/[facility]); Schizophrenia, unspecified type (CMS/HCC) 12/11/2024 2:30 PM EST Clinical Support [address] [address] Natalya Villagomez RN Depressive disorder 12/11/2024 Travel 12/11/[address] [address] Gopi Jackson MD Appointment Request 12/06/[address] [address] Gopi Jackson MD Call Back Request 11/22/2024 Refill [facility] [address] [place] [address] Gopi Jackson MD Type 2 diabetes mellitus with other specified complication, unspecified whether shelter insulin use (CMS/HCC) 11/20/2024 10:30 AM EST Clinical Support [address] [address] Natalya Villagomez RN Depressive disorder 11/13/[address] [address] Gopi Jackson MD Appointment Request from Last 3 Months Immunizations Name Administration [...] Description 04/24/2025 2:30 PM EDT Office Visit [facility] [address] [place] [address] Name, MD Gopi [address] [place] [address] Health Maintenance Due Date Last Done Comments [...] WHOLE BLOOD Routine 02/05/2025 2:10 PM EDT SARS COV2/INFLUENZA A/B AND RSV RNA QL NAAT Routine 02/03/2025 12:08 PM EDT STREP A NUCLEIC ACID Routine 02/03/2025 12:08 PM EDT POCT GLYCATED HEMOGLOBIN, TOTAL Routine 12/18/2024 1:04 PM EST Controlled type 2 diabetes mellitus with other specified complication, unspecified whether shelter insulin use ([facility]) POCT GLUCOSE Routine 12/18/2024 1:00 PM EST Controlled type 2 diabetes mellitus with other specified complication, unspecified whether exterminator helper termite insulin use ([facility]) ALBUMIN, RANDOM URINE W/CREATININE Routine 07/19/2024 8:45 AM EDT Controlled type 2 diabetes mellitus with other specified complication, unspecified whether exterminator helper termite insulin use ([facility]) Hypertension, unspecified type Chronic left shoulder pain BI MAMMOGRAM SCREENING TOMOSYNTHESIS BILATERAL Routine 02/08/2024 2:35 PM EDT LIPID PANEL, STANDARD Routine 01/27/2024 8:39 AM EDT HM COLONOSCOPY Routine 03/12/2020 3:02 PM EDT from Last 3 Months or Most Recently Relevant to Health Maintenance Results * (ABNORMAL) Glucose, Whole Blood (02/05/2025 2:10 PM EDT) Glucose, Whole Blood 117(H) 60 - 115 mg/dL [facility] Comment:METER #: [id number] Testing performed in the Endocrinology Department [address] , [address], [facility]. 02/05/2025 2:10 PM EDT 02/05/2025 2:15 PM EDT us Generic External Data Provider LAB BLOOD ORDERAB LES Final Result [facility] [address] [place] [phone] * (ABNORMAL) Strep A Nucleic Acid (02/03/2025 12:08 PM EDT) IDNOW SERIAL# [id number] [facility] Strep A Nucleic Acid Positive(A ) Negative [facility] Comment:All test results mus t be correlated with clinical findings.This test has not been evaluated for monitoring treatment ofinfection.Additional follow-up testing using the culture method isrequired if the result is negative and clinical symptomspersist, or in the event of an acute rheumatic feveroutbreak. 02/03/2025 12:0 8 PM EDT 02/03/2025 12:10 PM EDT us [employer] External Data Provider LAB MICROBIOLOGY - GENERAL ORDERABLES Final Result [facility] [address] [place] [address] [phone] * SARS-CoV-2 RNA, Influenza A/B, and RSV RNA, Ql NAAT (02/03/2025 12:08 PM EDT) Influenza A PCR NEGATIVE Negative [facility] Influenza B PCR NEGATIVE Negative [facility] Resp Syncy Virus RNA Qual PCR NEGATIVE Negative [facility] SARS COV2 PCR NEGATIVE Negative [facility] Comment:All test results mus t be correlated with clinical findings.Negative results do not preclude SARS-CoV2, influenza Avirus, influenza B virus and/or RSV infectionand should not be used as the sole basis for treatment orother patient management decisions. Negative results must becombined with clinical observations, patient history, andepidemiological information.This test has not been evaluated for monitoring treatment ofinfection.This test has been authorized by the FDA under an EmergencyUse Authorization (EUA) for use by authorized laboratories.Testing performed on the [employer] GeneXpert utilizingreal-time RT-PCR.All SARS CoV2 and positive influenza A/B results arereported to [facility]. 02/03/2025 12:0 8 PM EDT 02/03/2025 12:10 PM EDT us Generic External Data Provider LAB MICROBIOLOGY - GENERAL ORDERABLES Final Result [facility] [address] [place] [phone] * (ABNORMAL) POCT HGB A1C (12/18/2024 1:04 PM EST) Hemoglobin A1C 6.8(A) 4.0 - 6.0 % QC Media Lot # [id number] Lot# Expiration Date Blood 12/18/2024 1:04 PM EST Gopi Jackson MD POINT OF CARE TEST ENTER/EDIT OR DERABLES Final Result * POCT Glucose (12/18/2024 1:00 PM EST) Glucose Blood, POC 141 60 - 200 mg/dL QC Media Lot # [id number] Lot# Expiration Date Blood Capillary blood specimen / Unknown 12/18/2024 1:00 PM EST us Gopi Jackson MD POINT OF CARE TEST ENTER/EDIT OR DERABLES Final Result * (ABNORMAL) Albumin, Random Urine W/Creatinine (07/19/2024 8:45 AM EDT) Creatinine, Urine 77.27 mg/dL [facility] Microalbumin Urine 42.0 mg/L H [facility] Microalbum Creatinine Ratio Ur 54.3(H) <30 ug/mg cr [facility] Comment:Albumin/Creatinine R atio Reference Ranges: Normal: < 30 ug/mg creatinine Microalbuminuria: 30 - 300 ug/mg creatinineClinical Albuminuria: > 300 ug/mg creatinine Urine (Urine, Random) 07/19/2024 8:45 AM EDT 07/19/2024 11:13 AM EDT us Gopi Jackson MD LAB URINE ORDERABLES Final Resul t [facility] [address] [place] [phone] * BI Mammogram Screening Tomosynthesis Bilateral (02/08/2024 2:35 PM EDT) Anatomical Region Laterality Modality Breast Bilateral Mammography 02/08/2024 2:35 PM EDT Narrative 02/13/2024 6:44 AM EDT ? [facility] ? [address] ?[place] [address] ? Mammography Report ? Signed ? Patient: Priscila Mariscal ?MR#: ?? [id number] ? : 1955 ?Acct:[id number] ? Age/Sex: 68 / F ?ADM Date: 02/08/24 ? Loc: HO.MAMMO ? Attending Dr: Gopi Name MD ? Ordering Physician: Name,Gopi MD ?Results: 2Benign Fi ?? ndings ? Date of Service: 02/08/24 ?Follow Up: 1 Year From Orig ?? inal Mammogram ? Procedure(s): MM tomosynthesis screening BI ?? Accession Number(s): [id number] ? cc: Name,Gopi MORRIS ? EXAMINATION: ?? MM SCREENING DIGITAL [...] by Maricel Flores MD in OV> ? 02/13/24 0640 ? DD/ 1435 ? TD/TT: ? Direct Marketing Intern: ? Procedure Note Moises, Image - 02/13/2024 [facility] [address] [place] [address] [place] [address] Mammography Report Signed Patient: Shaista MariscalChristina#: [id number] : 4Acct:[id number] Age/Sex: 68 / FADM Date: 02/08/24 Loc: REN Attending Dr: Gopi Jackson MD Ordering Physician: Gopi Jackson MDResults: 2Benign Fi ndings Date of Service: 02/08/24Follow Up: 1 Year From Orig ina Mammogram Procedure(s): MM tomosynthesis screening BI Accession Number(s): [id number] cc: Name,Gopi MORRIS EXAMINATION: MM SCREENING DIGITAL BREAST TOMOSYNTHESIS, BILATERAL [...] in OV> 02/13/24 0640 DD/ 1435 TD/TT: Direct Marketing Intern: Gopi Jackson MD IM BI PROCEDURES Final Result * Lipid Panel, Standard (01/27/2024 8:39 AM EDT) Triglycerides 83 <150 mg/dL [facility] Comment:Desirable Triglyceri de: less than 150 mg/dLBorderline High Triglyceride 150-199 mg/dLHigh Triglyceride: 200-499 mg/dLVery High Triglyceride: greater than or equal to 5OO mg/dL Cholesterol 137 <200 mg/dL [facility] Comment:Desirable Cholestero l: less than 200 mg/dLBorderline High Cholesterol: 200-239 mg/dLHigh Cholesterol: greater than 239 mg/dL LDL Cholesterol Calculated 59 <100 mg/dL [facility] Comment:Desirable LDL: less than 100 mg/dLNear Optimal/Above Optimal LDL: 110- 129 mg/dLBorderline High LDL: 130-159 mg/dLHigh LDL: 160-189 mg/dLVery High LDL: greater than or equal to 190 mg/dL HDL Cholesterol 62 >40 mg/dL [facility] Comment:Desirable HDL: great er than 40 mg/dL Note: This HDL assay may give artificially low results in patients with liver disease. 01/27/2024 8:39 AM EDT 01/27/2024 8:39 AM EDT us Generic External Data Provider LAB BLOOD ORDERAB LES Final Result [facility] [address] [place] [phone] * Hm Colonoscopy (03/12/2020 3:02 PM EDT) Colonoscopy Normal Normal Narrative Eileen Delgado - 03/12/2020 3:02 PM EDT Recommended 10 year follow up ( ) Historical Provider HEALTH MAINTENANCE Final Result from Last 3 Months or Most Recently Relevant to Health Maintenance [place] [place] [address] [place] [address] [place] [address] [place] [address] Care Teams Drophammer Operator Relationship Specialty Start Date End Date Name, MD Gopi [address] [place] [address] PCP - General Family Medicine 02/04/16 [facility] 05/31/22
--- OUTSIDE RECORDS SUMMARY | 2025-02-05 16:34 | XMS_ITS ---
Author Organization [facility] Address [address] [place] [phone] Care Team Providers Care Typesetting Machine Tender Name Role Phone Name Gopi MORRIS Primary Care Provider Unavailniki e Mychal Almanzar Jr Unavailable [phone] DEVINENI, PREVEEN Unavailable Unavailable Encounters Encounter Location Date Provider Diagnosis [facility] [address] [place] [phone] 10/20/2023 Mychal Almanzar Jr Plan Of Treatment No Information Progress Notes * [place] CHANB: 1955 (68 yo F)Acc No.[id number]:10/20/2023 Patient:?SOFYA CASTANEDANOELIZABETH :1955???Age:68 Y???Sex:Female Address:[address] [place] [address] [address], [place] [address] * true * Date:? Generated for Printi zane/Karen/eTransmitting on:?02/05/2025 04:34 PM EDT
--- OUTSIDE RECORDS SUMMARY | 2025-02-05 16:34 | XMS_ITS | Encounter Summary ---
Author Organization [employer] Address [address] [facility] 7t [place] [address] Care Team Providers Care District Loss Prevention Manager Name Role Phone Name, Gopi MORRIS Primary Care Provider [phone] Encounter Details Date Type Department Care Team ([facility] Contact Info) Description 02/03/2025 Orders Only GENERIC EXTERNAL DATA DEPARTMENT [...] 2:30 PM EDT Office Visit [facility] [address] [place] [address] Name, MD Gopi [address] [place] [address] documented as of this encounter Procedures Procedure Name Priority Date/Time Associated Diagnosis Comments STREP A NUCLEIC ACID Routine 02/03/2025 12:08 PM EDT SARS COV2/INFLUENZA A/B AND RSV RNA QL NAAT Routine 02/03/2025 12:08 PM EDT documented in this encounter Results * SARS-CoV-2 RNA, Influenza A/B, and RSV RNA, Ql NAAT (02/03/2025 12:08 PM EDT) Influenza A PCR NEGATIVE Negative [facility] Influenza B PCR NEGATIVE Negative [facility] Resp Syncy Virus RNA Qual PCR NEGATIVE Negative [facility] SARS COV2 PCR NEGATIVE Negative [facility] Comment:All test results mus t be [...] use by authorized laboratories.Testing performed on the [employer] GeneXpert utilizingreal-time RT-PCR.All SARS CoV2 and positive influenza A/B results arereported to [facility]. 02/03/2025 12:0 8 PM EDT 02/03/2025 12:10 PM EDT Generic External Data Provider LAB MICROBIOLOGY - GENERAL ORDERABLES Final Result Performing Organization Address [facility] de Phone Number [facility] [address] [place] [phone] * (ABNORMAL) Strep A Nucleic Acid (02/03/2025 12:08 PM EDT) IDNOW SERIAL# [id number] [facility] Strep A Nucleic Acid Positive(A ) Negative [facility] Comment:All test results mus t be correlated with clinical findings.This test has not been evaluated for monitoring treatment ofinfection.Additional follow-up testing using the culture method isrequired if the result is negative and clinical symptomspersist, or in the event of an acute rheumatic feveroutbreak. 02/03/2025 12:0 8 PM EDT 02/03/2025 12:10 PM EDT Generic External Data Provider LAB MICROBIOLOGY - GENERAL ORDERABLES Final Result Performing Organization Address [facility] de Phone Number [facility] [address] [place] [phone] documented in this encounter Visit Diagnoses Not on filedocumented in this encounter Additional Health Concerns Assessment Noted Time PHQ-9 Depression Total Score: 0 12/27/19 24 11:17 AM EST documented as of this encounter Care Teams District Loss Prevention Manager Relationship Specialty Start Date End Date Name, MD Gopi [address] [place] [address] PCP - General Family Medicine 02/04/16 [facility] 05/31/22 documented as of this encounter
== END 2025-02-05 14:38 | disposition home or self-care (01) ==
LOC: HO.ENCR 13:36
PROVIDERS: PCP Internal Medicine Geriatric Medicine; Visit Provider Physician Assistant Medical
DX: E11.21 Type 2 diabetes mellitus with diabetic nephropathy (principal); E11.29 Type 2 diabetes mellitus with other diabetic kidney complication; R80.9 Proteinuria, unspecified; Z79.4 Long term (current) use of insulin

== ENCOUNTER → 2025-02-05 13:36 | Outpatient (BNVA) | payer MEDICARE, MEDICAID, SELFPAY | PROVIDERS: PCP Internal Medicine Geriatric Medicine; Visit Provider Physician Assistant Medical | DX: E11.21 Type 2 diabetes mellitus with diabetic nephropathy (principal); E11.29 Type 2 diabetes mellitus with other diabetic kidney complication; Z79.4 Long term (current) use of insulin; R80.9 Proteinuria, unspecified | CPT/HCPCS: 82947; 99212 ==

== ENCOUNTER 2025-02-14 09:45 | Outpatient (REF) | payer MEDICARE, MEDICAID, SELFPAY ==
[2025-02-14 10:20] LABS: Platelet Count 189 X10*3/uL (160-400)
[2025-02-14 10:27] LABS: Estimated Average Glucose 143 mg/dL; Hemoglobin A1C 170.5745 umol/L; Hemoglobin A1c % 6.6 % (<6.0); Total Hemoglobin (HGBA1C) 3491.5357 umol/L
[2025-02-14 10:50] LABS: Alanine Aminotransferase 44 U/L (0-31); Aspartate Amino Transferase 41 U/L (5-31); Cholesterol 133 mg/dL (<200); Estimated Glomerular Filt Rate > 60; HDL Cholesterol 57 mg/dL (>40); LDL Cholesterol Calculated 56 mg/dL (<100); Triglycerides 104 mg/dL (<150)
[2025-02-14 10:51] LABS: B Type Natriuretic Peptide 14 pg/mL (<100)
--- OUTSIDE RECORDS SUMMARY | 2025-02-14 11:16 | XMS_ITS | Encounter Summary ---
Author Organization [employer] Address [address] [facility] [address] [place] [address] Care Team Providers Care Machine Edge Bander Name Role Phone Name, Gopi MORRIS Primary Care Provider [phone] Encounter Details Date Type Department Care Team ([facility] Contact Info) Description 02/14/2025 Orders Only GENERIC EXTERNAL DATA DEPARTMENT Provider, [...] Description 04/24/2025 2:30 PM EDT Office Visit [facility] [address] [place] [address] Name, MD Gopi [address] [place] [address] documented as of this encounter Procedures Procedure Name Priority Date/Time Associated Diagnosis Comments CREATININE, SERUM Routine 02/14/2025 9:5 8 AM EDT PLATELET COUNT Routine 02/14/2025 9:58 AM EDT ALT Routine 02/14/2025 9:58 AM EDT AST Routine 02/14/2025 9:58 AM EDT B TYPE NATRIURETIC PEPTIDE (BNP) Routine 02/14/2025 9:58 AM EDT HEMOGLOBIN A1C Routine 02/14/2025 9:58 AM EDT LIPID PANEL, STANDARD Routine 02/14/2025 9:58 AM EDT documented in this encounter Results * B Type Natriuretic Peptide (BNP) (02/14/2025 9:58 AM EDT) B Type Natriuretic Peptide 14 <100 pg/mL [facility] 02/14/2025 9:58 AM EDT 02/14/2025 9:58 AM EDT us Generic External Data Provider LAB BLOOD ORDERAB LES Final Result [facility] [address] [place] [phone] * Lipid Panel, Standard (02/14/2025 9:58 AM EDT) Triglycerides 104 <150 mg/dL [facility] Comment:Desirable Triglyceri de: less than 150 mg/dLBorderline High Triglyceride 150-199 mg/dLHigh Triglyceride: 200-499 mg/dLVery High Triglyceride: greater than or equal to 5OO mg/dL Cholesterol 133 <200 mg/dL [facility] Comment:Desirable Cholestero l: less than 200 mg/dLBorderline High Cholesterol: 200-239 mg/dLHigh Cholesterol: greater than 239 mg/dL LDL Cholesterol Calculated 56 <100 mg/dL [facility] Comment:Desirable LDL: less than 100 mg/dLNear Optimal/Above Optimal LDL: 110- 129 mg/dLBorderline High LDL: 130-159 mg/dLHigh LDL: 160-189 mg/dLVery High LDL: greater than or equal to 190 mg/dL HDL Cholesterol 57 >40 mg/dL [facility] Comment:Desirable HDL: great er than 40 mg/dL Note: This HDL assay may give artificially low results in patients with liver disease. 02/14/2025 9:58 AM EDT 02/14/2025 9:58 AM EDT us Generic External Data Provider LAB BLOOD ORDERAB LES Final Result Performing Organization Address [facility] Co de Phone Number [facility] [address] [place] [phone] * (ABNORMAL) ALT (02/14/2025 9:58 AM EDT) Alanine Aminotransferase 44(H) 0 - 31 U/L [facility] 02/14/2025 9:58 AM EDT 02/14/2025 9:58 AM EDT us Generic External Data Provider LAB BLOOD ORDERAB LES Final Result Performing Organization Address City/[facility]/ZIP Co de Phone Number [facility] [address] [place] [phone] * (ABNORMAL) AST (02/14/2025 9:58 AM EDT) Aspartate Amino Transferase 41(H) 5 - 31 U/L [facility] 02/14/2025 9:58 AM EDT 02/14/2025 9:58 AM EDT us Generic External Data Provider LAB BLOOD ORDERAB LES Final Result Performing Organization Address [facility] Co de Phone Number [facility] [address] [place] [phone] * Creatinine, Serum (02/14/2025 9:58 AM EDT) Creatinine, Serum 0.69 0.5 - 1.4 mg/dL [facility] Estimated Glomerular Filt Rate >60 [facility] Comment:Chronic Kidney Disea se: Estimated GFR < 60 mL/min/1.43d6Iczuzo Kidney Disease: Estimated GFR < 15 mL/min/1.73m2 02/14/2025 9:58 AM EDT 02/14/2025 9:58 AM EDT us Generic External Data Provider LAB BLOOD ORDERAB LES Final Result Performing Organization Address [facility] Co de Phone Number [facility] [address] [place] [phone] * (ABNORMAL) Hemoglobin A1c (02/14/2025 9:58 AM EDT) Hemoglobin A1c 6.6(H) <6.0 % [facility] Comment:Hemoglobin A1C Refer ence Range Adults: 4.8 - 6.0 % Non diabetic: < 6.0 % Goal: < 7.0 %Additional Action Suggested: > 8.0 %Note: Hemoglobin A1c results are invalid for patients with abnormal amounts of HbF. Blood transfusions may impact the HbA1c concentration in the patient sample. Estimated Average Glucose 143 mg/dL [facility] Comment:eAG = Estimated ave rage glucose which is %A1C expressed asaverage glucose, using the formula of the P7Z-XcnkyosKqxbosh Glucose study (ADAG), Diabetes Care, Vol.31,#8,May. 2007 02/14/2025 9:58 AM EDT 02/14/2025 9:58 AM EDT Generic External Data Provider LAB BLOOD ORDERAB LES Final Result Performing Organization Address City/[facility]/ZIP Co de Phone Number [facility] [address] [place] [phone] * Platelet Count (02/14/2025 9:58 AM EDT) Platelet Count 189 160 - 400 X10*3/uL [facility] 02/14/2025 9:58 AM EDT 02/14/2025 9:58 AM EDT Generic External Data Provider LAB BLOOD ORDERAB LES Final Result Performing Organization Address [facility] de Phone Number [facility] [address] [place] [phone] documented in this encounter Visit Diagnoses Not on filedocumented in this encounter Additional Health Concerns Assessment Noted Time PHQ-9 Depression Total Score: 0 12/27/19 24 11:17 AM EST documented as of this encounter Care Teams Machine Edge Bander Relationship Specialty Start Date End Date Name, MD Gopi [address] [place] [address] PCP - General Family Medicine 02/04/16 [facility] 05/31/22 documented as of this encounter
--- OUTSIDE RECORDS SUMMARY | 2025-02-14 11:16 | XMS_ITS | Encounter Summary ---
Author Organization [employer] Address [address] [facility] 7t [place] [address] Care Team Providers Care Client Engagement Specialist Name Role Phone Name, Gopi MORRIS Primary Care Provider Reason for Visit * Reason Onset Date Comments FYI 02/01/2024 Encounter Details Date Type Department Care Team ([facility] Contact Info) Description 02/01/2024 Telephone [facility] [address] [place], [place] [phone] Name, MD Gopi [address] [place], [place] [phone] FYI Social History Tobacco Use Types Packs/Day [...] Miscellaneous Notes * Telephone Encounter - Ciera Pza RN - 02/01/2024 4:05 PM EDT FYI * Telephone Encounter - Teresita Valencia - 02/01/2024 3:14 PM EDT Tc from [facility] calling to inform PCP pt get seen yesterday by endocrinology socialist, however the office discharge the pt due to peter control on diabetes, also wanted to inform pt is traveling to [place] from 02/18 and returning on 03/05 and she is going to put services on hold during traveling. Son its going to be on charge of pt medications during traveling days. Any questions contact Nicole at [phone] documented in this encounter Plan of Treatment Upcoming Encounters Date Type Department Care Team (Late st Contact Info) Description 04/24/2025 2:30 PM EDT Office Visit [facility] [address] [place], [place] [phone] Name, MD Gopi [address] [place] [address] documented as of this encounter Visit Diagnoses Not on filedocumented in this encounter Additional Health Concerns Assessment Noted Time PHQ-9 Depression Total Score: 0 12/27/19 24 11:17 AM EST documented as of this encounter Care Teams Client Engagement Specialist Relationship Specialty Start Date End Date Name, MD Gopi [address] [place] [address] PCP - General Family Medicine 02/04/16 [facility] 05/31/22 documented as of this encounter
--- OUTSIDE RECORDS SUMMARY | 2025-02-14 11:16 | XMS_ITS | Encounter Summary ---
Author Organization [facility] Address [address] [place] [address] [address] [place] [address] Care Team Providers Care Fixing Machine Operator Name Role Phone Name, Gopi MORRIS Primary Care Provider [phone] Encounter Details Date Type Department Care Team ([facility] Contact Info) Description 03/31/2023 Abstract [facility] [address] [place] [address] [phone] Gopi Jackson MD [address] [place] [address] [phone] Social History Tobacco Use Types Packs/Day Years [...] Description 04/24/2025 2:30 PM EDT Office Visit [facility] [address] [place] [address] [phone] Gopi Jackson MD [address] [place] [address] [phone] documented as of this encounter Procedures Procedure [...] on filedocumented in this encounter Care Teams Fixing Machine Operator Relationship Specialty Start Date End Date Name, MD Gopi [address] [place] [address] PCP - General Family Medicine 02/04/16 [facility] 05/31/22 documented as of this encounter
--- OUTSIDE RECORDS SUMMARY | 2025-02-14 11:16 | XMS_ITS | Clinical Summary ---
Author Organization [employer] Address [address] [place] [address] 7t [place] [address] Care Team Providers Care Stemhole Borer Name Role Phone Name, Gopi MORRIS Primary Care Provider [phone] Allergies Active Allergy Reactions Criticality Noted Date [...] coma, without long-term current use of insulin ([facility]) 1 each by Other route 3 times daily. 1 each 024 Active glucose blood (OneTouch Verio) test strip 1 each by Other route 3 times daily. 100 each 024 Active Lancets (Modern ArmoryToProteus Agility Delica Safety Lancing) miscIndications:C ontrolled type 2 diabetes mellitus with other specified complication, unspecified whether extermination supervisor insulin use ([facility]) Apply 1 each topically See administration instructions. USE TO TEST BLOOD SUGAR THREE TIMES A DAY. Dx:Controlled type 2 diabetes mellitus with other specified complication, unspecified whether extermination supervisor insulin use ([facility]) 100 each 3 024 Active aspirin (Aspirin [...] mellitus with other specified complication, unspecified whether retirement insulin use ([facility]) USE 1 PAD BY TOPICAL ROUTE 4 TIMES EVERY DAY 100 each 11 025 Active loratadine (Claritin) 10 MG tablet Take 1 tablet (10 mg) by mouth Once per day. 30 tablet 11 025 02/18/ 2026 Active FREESTYLE LITE test stripIndications: Controlled type 2 diabetes mellitus with other specified complication, unspecified whether retirement insulin use ([facility]),Insulin dependent type 2 diabetes mellitus ([facility]) Use to test blood sugar 3 times daily 100 each 12 025 2025 Active Lancets miscIndications:C ontrolled type 2 diabetes mellitus with other specified complication, unspecified whether retirement insulin use ([facility]),Insulin dependent type 2 diabetes mellitus ([facility]) Use to test blood sugar 3 times [...] mellitus with other specified complication, unspecified whether extermination supervisor insulin use ([facility]) USE 5 TIMES A DAY WITH INSULINS 100 each 5 025 Active insulin pen needle (BD Pen Needle Edilia 2nd Gen) 32G x 4 mm miscIndications:C ontrolled type 2 diabetes mellitus with other specified complication, unspecified whether retirement insulin use ([facility]) USE 5 TIMES A DAY WITH INSULINS 100 each 3 024 2024 Discontinued Active Problems Problem Noted [...] Encounters Date Type Department Care Team Description 02/14/2025 Orders Only GENERIC EXTERNAL DATA DEPARTMENT Provider, Generic External Data 02/05/2025 Orders Only GENERIC EXTERNAL DATA DEPARTMENT Provider, Generic External Data 02/03/2025 Orders Only GENERIC EXTERNAL DATA DEPARTMENT Provider, Generic External Data 01/17/2025 Refill [facility] [address] [place] [address] Gopi Jackson MD Controlled type 2 diabetes mellitus with other specified complication, unspecified whether extermination supervisor insulin use ([facility]) 01/14/2025 Telephone [facility] [address] [place], [place] [phone] Rudi Charles MA may recalls 01/05/2025 Refill [facility] [address] [place] [address] Gopi Jackson MD Hyperlipidemia, unspecified hyperlipidemia type; Hypertension, unspecified type 01/02/2025 Refill [facility] [address] [place] [address] Gopi Jackson MD Heartburn 12/27/2024 Refill [facility] [address] [place] [address] Gopi Jackson MD 12/23/[address] [address] Gopi Jackson MD 12/18/2024 1:00 PM EST Office Visit [address] [address] Gopi Jackson MD Controlled type 2 diabetes mellitus with other specified complication, unspecified whether retirement insulin use ([facility]) (Primary Dx); Insulin dependent type 2 diabetes mellitus (CMS/HCC); Schizophrenia, unspecified type (CMS/HCC) 12/11/2024 2:30 PM EST Clinical Support [address] [address] Natalya Villagomez, ARTIE Depressive disorder 12/11/2024 Travel 12/11/[address] [address] Gopi Jackson MD Appointment Request 12/06/[address] [address] Gopi Jackson MD Call Back Request 11/22/2024 Refill [facility] [address] [place] [address] Gopi Jackson MD Type 2 diabetes mellitus with other specified complication, unspecified whether retirement insulin use (CMS/HCC) 11/20/2024 10:30 AM EST Clinical Support [address] [address] Natalya Villagomez, ARTIE Depressive disorder from Last 3 Months Immunizations Name Administration [...] is your housing situation today? I have fayejessika manzo 12/27/[address] you [...] Description 04/24/2025 2:30 PM EDT Office Visit [facility] [address] [place] [address] Name, MD Gopi [address] [place] [address] Health Maintenance Due Date Last Done Comments [...] history exists Depression Screening 12/27/2024 12/27/2023, 12/27/19 24 SDOH Screening 12/27/2024 12/27/2023 Mammogram 02/07/2025 02/08/2024, 0307/2023, 01/25/2023, Additional history exists Diabetes: Urine Protein Screening 07/19/2025 07/19/2024, 01/27/2024, 01/21/2022 Diabetes: Hemoglobin A1C 08/16/2025 025, 12/18/2024, 07/19/2024, Additional history exists Eye Exam 10/11/2025 10/11/2023 Alcohol/Substance Use Screening 10/12/2025 10/12/2024 Tobacco Screening 10/12/2025 10/12/2024 Lipid Panel 02/14/2026 02/14/2025, 12/30, 11/17/2023, Additional history exists DTaP/Tdap/Td Vaccines (2 - Td or Tdap) [...] Procedure Name Priority Date/Time Associated Diagnosis Comments B TYPE NATRIURETIC PEPTIDE (BNP) Routine 02/14/2025 9:58 AM EDT LIPID PANEL, STANDARD Routine 02/14/2025 9:58 AM EDT ALT Routine 02/14/2025 9:58 AM EDT AST Routine 02/14/2025 9:58 AM EDT CREATININE, SERUM Routine 02/14/2025 9:5 8 AM EDT HEMOGLOBIN A1C Routine 02/14/2025 9:58 AM EDT PLATELET COUNT Routine 02/14/2025 9:58 AM EDT GLUCOSE, WHOLE BLOOD Routine 02/05/2025 2:10 PM EDT SARS COV2/INFLUENZA A/B AND RSV RNA QL NAAT Routine 02/03/2025 12:08 PM EDT STREP A NUCLEIC ACID Routine 02/03/2025 12:08 PM EDT POCT GLYCATED HEMOGLOBIN, TOTAL Routine 12/18/2024 1:04 PM EST Controlled type 2 diabetes mellitus with other specified complication, unspecified whether retirement insulin use ([facility]) POCT GLUCOSE Routine 12/18/2024 1:00 PM EST Controlled type 2 diabetes mellitus with other specified complication, unspecified whether retirement insulin use ([facility]) ALBUMIN, RANDOM URINE W/CREATININE Routine 07/19/2024 8:45 AM EDT Controlled type 2 diabetes mellitus with other specified complication, unspecified whether extermination supervisor insulin use ([facility]) Hypertension, unspecified type Chronic left shoulder pain BI MAMMOGRAM SCREENING TOMOSYNTHESIS BILATERAL Routine 02/08/2024 2:35 PM EDT HM COLONOSCOPY Routine 03/12/2020 3:02 PM EDT from Last 3 Months or Most Recently Relevant to Health Maintenance Results * Creatinine, Serum (02/14/2025 9:58 AM EDT) Creatinine, Serum 0.69 0.5 - 1.4 mg/dL [facility] Estimated Glomerular Filt Rate >60 [facility] Comment:Chronic Kidney Disea se: Estimated GFR < 60 mL/min/1.39c6[place]imkal Kidney Disease: Estimated GFR < 15 mL/min/1.73m2 02/14/2025 9:58 AM EDT 02/14/2025 9:58 AM EDT us Generic External Data Provider LAB BLOOD ORDERAB LES Final Result Performing Organization Address [facility] Co de Phone Number [facility] [address] [place] [phone] * Platelet Count (02/14/2025 9:58 AM EDT) Platelet Count 189 160 - 400 X10*3/uL [facility] 02/14/2025 9:58 AM EDT 02/14/2025 9:58 AM EDT us Generic External Data Provider LAB BLOOD ORDERAB LES Final Result Performing Organization Address [facility] Phone Number [facility] [address] [place] [phone] * (ABNORMAL) ALT (02/14/2025 9:58 AM EDT) Alanine Aminotransferase 44(H) 0 - 31 U/L [facility] 02/14/2025 9:58 AM EDT 02/14/2025 9:58 AM EDT us Generic External Data Provider LAB BLOOD ORDERAB LES Final Result Performing Organization Address [facility] de Phone Number [facility] [address] [place] [phone] * (ABNORMAL) AST (02/14/2025 9:58 AM EDT) Aspartate Amino Transferase 41(H) 5 - 31 U/L [facility] 02/14/2025 9:58 AM EDT 02/14/2025 9:58 AM EDT us Generic External Data Provider LAB BLOOD ORDERAB LES Final Result Performing Organization Address [facility] Co de Phone Number [facility] [address] [place] [phone] * B Type Natriuretic Peptide (BNP) (02/14/2025 9:58 AM EDT) B Type Natriuretic Peptide 14 <100 pg/mL [facility] 02/14/2025 9:58 AM EDT 02/14/2025 9:58 AM EDT us Generic External Data Provider LAB BLOOD ORDERAB LES Final Result Performing Organization Address City/[facility]/ZIP Co de Phone Number [facility] [address] [place] [phone] * (ABNORMAL) Hemoglobin A1c (02/14/2025 9:58 AM EDT) Hemoglobin A1c 6.6(H) <6.0 % [facility] Comment:Hemoglobin A1C Refer ence Range Adults: 4.8 - 6.0 % Non diabetic: < 6.0 % Goal: < 7.0 %Additional Action Suggested: > 8.0 %Note: Hemoglobin A1c results are invalid for patients with abnormal amounts of HbF. Blood transfusions may impact the HbA1c concentration in the patient sample. Estimated Average Glucose 143 mg/dL [facility] Comment:eAG = Estimated ave rage glucose which is %A1C expressed asaverage glucose, using the formula of the X6S-RintcstRzbxows Glucose study (ADAG), Diabetes Care, Vol.31,#8,May. 2007 02/14/2025 9:58 AM EDT 02/14/2025 9:58 AM EDT us Generic External Data Provider LAB BLOOD ORDERAB LES Final Result Performing Organization Address City/[facility]/ZIP Co de Phone Number [facility] [address] [place] [phone] * Lipid Panel, Standard (02/14/2025 9:58 AM EDT) Triglycerides 104 <150 mg/dL [facility] Comment:Desirable Triglyceri de: less than 150 mg/dLBorderline High Triglyceride 150-199 mg/dLHigh Triglyceride: 200-499 mg/dLVery High Triglyceride: greater than or equal to 5OO mg/dL Cholesterol 133 <200 mg/dL [facility] Comment:Desirable Cholestero l: less than 200 mg/dLBorderline High Cholesterol: 200-239 mg/dLHigh Cholesterol: greater than 239 mg/dL LDL Cholesterol Calculated 56 <100 mg/dL [facility] Comment:Desirable LDL: less than 100 mg/dLNear Optimal/Above Optimal LDL: 110- 129 mg/dLBorderline High LDL: 130-159 mg/dLHigh LDL: 160-189 mg/dLVery High LDL: greater than or equal to 190 mg/dL HDL Cholesterol 57 >40 mg/dL [facility] Comment:Desirable HDL: great er than 40 mg/dL Note: This HDL assay may give artificially low results in patients with liver disease. 02/14/2025 9:58 AM EDT 02/14/2025 9:58 AM EDT us Generic External Data Provider LAB BLOOD ORDERAB LES Final Result Performing Organization Address City/[facility]/ZIP Co de Phone Number [facility] [address] [place] [phone] * (ABNORMAL) Glucose, Whole Blood (02/05/2025 2:10 PM EDT) Glucose, Whole Blood 117(H) 60 - 115 mg/dL [facility] Comment:METER #: [id number] Testing performed in the Endocrinology Department [address] , [address], [facility]. 02/05/2025 2:10 PM EDT 02/05/2025 2:15 PM EDT us Generic External Data Provider LAB BLOOD ORDERAB LES Final Result Performing Organization Address City/[facility]/ZIP Co de Phone Number [facility] [address] [place] [address] [phone] * (ABNORMAL) Strep A Nucleic Acid (02/03/2025 12:08 PM EDT) IDNOW SERIAL# [id number] [facility] Strep A Nucleic Acid Positive(A ) Negative [facility] Comment:All test results mus t be [...] LAB MICROBIOLOGY - GENERAL ORDERABLES Final Result [facility] [address] [place] [phone] * SARS-CoV-2 RNA, Influenza A/B, and RSV RNA, Ql NAAT (02/03/2025 12:08 PM EDT) Influenza A PCR NEGATIVE Negative [facility] Influenza B PCR NEGATIVE Negative [facility] Resp Syncy Virus RNA Qual PCR NEGATIVE Negative [facility] SARS COV2 PCR NEGATIVE Negative [facility] Comment:All test results mus t [...] use by authorized laboratories.Testing performed on the [employer] GeneXpert utilizingreal-time RT-PCR.All SARS CoV2 and positive influenza A/B results arereported to [facility]. 02/03/2025 12:0 8 PM EDT 02/03/2025 12:10 PM EDT us Generic External Data Provider LAB MICROBIOLOGY - GENERAL ORDERABLES Final Result [facility] [address] [place] [phone] [phone] * (ABNORMAL) POCT HGB A1C (12/18/2024 [...] 8:45 AM EDT) Creatinine, Urine 77.27 mg/dL [facility] Microalbumin Urine 42.0 mg/L H [facility] Microalbum Creatinine Ratio Ur 54.3(H) <30 ug/mg cr [facility] Comment:Albumin/Creatinine R atio Reference Ranges: Normal: < 30 ug/mg creatinine Microalbuminuria: 30 - 300 ug/mg creatinineClinical Albuminuria: > 300 ug/mg creatinine Urine (Urine, Random) 07/19/2024 8:45 AM EDT 07/19/2024 11:13 AM EDT us Gopi Jackson MD LAB URINE ORDERABLES Final Resul t [facility] [address] [place] [address] [phone] * BI Mammogram Screening Tomosynthesis Bilateral (02/08/2024 2:35 PM EDT) Anatomical Region Laterality Modality Breast Bilateral Mammography 02/08/2024 2:35 PM EDT Narrative 02/13/2024 6:44 AM EDT ? [facility] [place] ? [address] ?[place] [address] ? Mammography Report ? Signed ? Patient: Ghosh Garcia,Priscila ?MR#: ?? [id number] ? : 1955 ?Acct:[id number] ? Age/Sex: 68 / F ?ADM Date: 02/08/24 ? Loc: HO.MAMMO ? Attending Dr: Gopi Name MD ? Ordering Physician: Name,Gopi MD ?Results: 2Benign Fi ?? ndings ? Date of Service: 02/08/24 ?Follow Up: 1 Year From Orig ?? inal Mammogram ? Procedure(s): MM tomosynthesis screening BI ?? Accession Number(s): [id number] ? cc: Name,Gopi MORRIS ? EXAMINATION: ?? [...] 0640 ? DD/ 1435 ? TD/TT: ? Charge Entry: ? Procedure Note Moises, Image - 02/13/2024 [facility] [address] [place] [address] Dr. Lau, [place] [address] Mammography Report Signed Patient: Mela Mariscal#: [id number] : 4Acct:[id number] Age/Sex: 68 / FADM Date: 02/08/24 Loc: REN Attending Dr: Gopi Jackson MD Ordering Physician: NameGopi MDResults: 2Benign Fi ndings Date of Service: 02/08/24Follow Up: 1 Year From [facility] ina Mammogram Procedure(s): MM tomosynthesis screening BI Accession Number(s): [id number] cc: Name,Gopi MORRIS EXAMINATION: MM SCREENING DIGITAL [...] in OV> 02/13/24 0640 DD/ 1435 TD/TT: Charge Entry: Gopi Jackson MD IMG BI PROCEDURES Final Result * Hm Colonoscopy (03/12/2020 3:02 PM EDT) Colonoscopy Normal Normal Narrative Eileen Delgado - 03/12/2020 3:02 PM EDT Recommended 10 year follow up ( ) Historical Provider HEALTH MAINTENANCE Final Result from Last 3 Months or Most Recently Relevant to Health Maintenance Insurance [facility] STANDARD MEDICARE Care Teams Stemhole Borer Relationship Specialty Start Date End Date Name, MD Gopi [address] [place] [address] PCP - General Family Medicine 02/04/16 [facility] 05/31/22
--- OUTSIDE RECORDS SUMMARY | 2025-02-14 11:16 | XMS_ITS ---
Author Organization [facility] Address [address] [place] [address] Care Team Providers Care Encoding Clerk Name Role Phone Name Gopi MORRIS Primary Care Provider UnavailMychal Elizabeth Jr DEVINENISHARONDA Unavailable Unavailable REASON FOR VISIT rectal bleeding,diarrhea Encounters Encounter Location Date Provider Diagnosis [facility] [address] [place], [place] [phone] 10/14/2023 Mychal Almanzar Jr Plan Of Treatment No Information Progress Notes * [place] CHANB: 1955 (69 yo F)Acc No.[id number]:10/14/2023 COLON WITH MAC Patient:?SOFYA ANN ELIZABETH ABERNATHY Provider:?Mychal Almanzar MD :1955???Age:68 Y???Sex:Female D ate:10/14/2023 Address:[address] [place] [address] [address], [facility] Pcp:Gopi Jackson MD Subjective: * Chief Complaints: [...] MD Date:?1 12/15/2022 Generated for Manny degroot/Karen/Elodiaitting on:?02/14/2025 11:15 AM EDT
--- OUTSIDE RECORDS SUMMARY | 2025-02-14 11:16 | XMS_ITS | Clinical Summary ---
Author Organization [facility] [employer] [facility] [place] [address] Care Team Providers Care Bank Representative Name Role Phone Unavailable Primary Care Provider [...] Influencers of Health Screening 11/25/2023 COVID-19 Vaccine (2023-2 5 season) 2024 Influenza Vaccine (Season Ended) 2025 RSV Immunization Adult Patie nts (1 - [...]
--- OUTSIDE RECORDS SUMMARY | 2025-02-14 11:16 | XMS_ITS ---
Author Organization [facility] Address [address] [place] [phone] Care Team Providers Care J2Ee Architect Name Role Phone Name Gopi MORRIS Primary Care Provider Unavailniki e Mychal Almanzar Jr [phone] DEVINENI, PREVEEN Unavailable Unavailable REASON FOR VISIT update on ozempic Encounters Encounter Location Date Provider Diagnosis [facility] [address] [place] [phone] 10/12/2023 Mychal Almanzar Jr Plan Of Treatment No Information Progress Notes * [place] CHANB: 1955 (68 yo F)Acc No.[id number]:10/12/2023 Patient:?COWARTCASSIE JUAREZMAGAlexandru JOSEMANUEL :1955???Age:68 Y???Sex:Female Address:[address] [facility] [address], [place] [address] * true * Date:? Generated for Printi zane/Karen/eTransmitting on:?02/14/2025 11:16 AM EDT
--- OUTSIDE RECORDS SUMMARY | 2025-02-14 11:16 | XMS_ITS | Encounter Summary ---
Author Organization [employer] Address [address] [facility] 7t [place] [address] Care Team Providers Care Driver License Reviewing Officer Name Role Phone Name, Gopi MORRIS Primary Care Provider [phone] Reason for Visit * Reason Comments Med Change Request Encounter Details Date Type Department Care Team ([facility] Contact Info) Description 10/05/2023 Refill [facility] [address] [place], [place] [phone] Johana Garibay, ANP [address] [place], [place] [phone] Acute bacterial conjunctivitis of both eyes Social [...] Description 04/24/2025 2:30 PM EDT Office Visit [facility] [address] [place] [address] Name, MD Gopi [address] [place] [address] documented as of this encounter Visit Diagnoses Diagnosis Acute bacterial conjunctivitis of both eyes documented in this encounter Care Teams Driver License Reviewing Officer Relationship Specialty Start Date End Date Name, MD Gopi [address] [place] [address] PCP - General Family Medicine 02/04/16 [facility] 05/31/22 documented as of this encounter
--- OUTSIDE RECORDS SUMMARY | 2025-02-14 11:16 | XMS_ITS | Encounter Summary ---
Author Organization [employer] Address [address] [facility] 7t [place] [address] Care Team Providers Care Crane Operator Name Role Phone Name, Gopi MORRIS Primary Care Provider [phone] Reason for Visit * Reason Onset Date Comments Appointment Request 11/13/2024 Encounter Details Date Type Department Care Team ([facility] Contact Info) Description 11/13/2024 Telephone [facility] [address] [place], [place] [phone] Name, MD Gopi [address] [place], [place] [phone] Appointment Request Social History Tobacco Use Types [...] 2:55 PM EST Tc meliza Rivera with [facility] requesting schedule f/u appt with pcp in regards peripheral neuropathy. [phone] documented in this encounter Plan of Treatment Upcoming Encounters Date Type Department Care Team (Late st Contact Info) Description 04/24/2025 2:30 PM EDT Office Visit [facility] [address] [place] [address] Name, MD Gopi [address] [place] [address] documented as of this encounter Visit Diagnoses Not on filedocumented in this encounter Additional Health Concerns Assessment Noted Time PHQ-9 Depression Total Score: 0 12/27/19 24 11:17 AM EST documented as of this encounter Care Teams Crane Operator Relationship Specialty Start Date End Date Name, MD Gopi [address] [place] [address] PCP - General Family Medicine 02/04/16 [facility] 05/31/22 documented as of this encounter
--- OUTSIDE RECORDS SUMMARY | 2025-02-14 11:17 | XMS_ITS | Patient Health Record ---
Author Organization [facility] Address [address] [place] [address] Care Team Providers Care Associate Product Integrity Engineer Name Role Phone Name Gopi MORRIS Primary Care Provider UnavailMychal Elizabeth Jr Unavailable [phone] SHARONDA WEBBER Unavailable Unavailable Allergies Allergen [...] Problem Status W/U Status Risk Notes Problem 096018700 Colon cancer screening (Z12.11) Active confirmed Problem 43019208 Rectal bleeding (K62.5) Active confirmed Problem Gastric polyp (79576009) Gastric polyp (K31.7) Active confirmed Problem 74199270 Constipation, unspecified constipation type (K59.00) Active confirmed Problem 29709371 Diarrhea, unspecified type (R19.7) Active confirmed Problem 31731359 Cirrhosis of liver without ascites, unspecified hepatic cirrhosis type (K74.60) Active confirmed Problem 466459076 Microscopic colitis, unspecified microscopic colitis type (K52.839) Active confirmed Plan Of Treatment Pending Test Test Name Order Date LIVER PROFILE 08/25/2023 LIVER PROFILE 07/20/2021 CBC w/o DIFF 08/25/2023 CBC w/o DIFF 07/20/2021 PROTHROMBIN TIME (PT, INR) 08/25/2023 PROTHROMBIN TIME (PT, INR) 07/20/2021 US ABDOMEN COMP WITH ELASTOGRAPHY 2022 Liver Fibrosis Pnl 07/20/2021 Liver Fibrosis Pnl 08/25/2023 Future Test Test Name Order Date COLONOSCOPY 11/28/2019 UPPER GI ENDOSCOPY 07/20/2021 COLONOSCOPY 08/24/2023 Insurance Providers Payer Name Payer Address Payer Phone Subscriber Number Group Number Insured Name Patient Relationship to Insured Coverage Start Date Coverage End Date MED[place]ARE OF [place] [address] [place] [address] [phone] [id number] KAY CHAN Self - patient is the insured MED[place] OF [id number] [address] [place] [phone] [id number] KAY CHAN Self - patient is the [...]
[2025-02-14 12:05] LABS: Creatinine Urine 54.76 mg/dL; Microalbum/Creatinine Ratio Ur 10.9 ug/mg cr (<30)
== END 2025-02-14 09:46 | disposition home or self-care (01) ==
LOC: HO.LAB 09:45
PROVIDERS: Absent Provider Internal Medicine Geriatric Medicine; PCP Internal Medicine Geriatric Medicine; Visit Provider Physician Assistant Medical
DX: E11.29 Type 2 diabetes mellitus with other diabetic kidney complication (principal); R80.9 Proteinuria, unspecified; Z79.4 Long term (current) use of insulin; E11.9 Type 2 diabetes mellitus without complications; E78.5 Hyperlipidemia, unspecified
CPT/HCPCS: 36415; 80061; 82043; 82565; 82570; 83036; 83880; 84450; 84460; 85049

== ENCOUNTER 2025-03-11 11:02 | Outpatient (REF) | payer MEDICARE, MEDICAID, SELFPAY ==
--- OUTSIDE RECORDS SUMMARY | 2025-03-11 11:48 | XMS_ITS ---
Author Organization [facility] Address [address] [place] [phone] Care Team Providers Care Chief Supply Chain Officer Name Role Phone Name Gopi MORRIS Primary Care Provider Unavailniki e Mychal Almanzar Jr Unavailable DEVINENI, PREVEEN Unavailable Unavailable Encounters Encounter Location Date Provider Diagnosis [facility] [address] [place] [phone] 10/20/2023 Mychal Almanzar Jr Plan Of Treatment No Information Progress Notes * [place] CHANB: 1955 (68 yo F)Acc No.[id number]:10/20/2023 Patient:?SOFYA CASTANEDANOELIZABETH :1955???Age:68 Y???Sex:Female Address:[address] [place] [address] [address], [place] [address] * true * Date:? Generated for Printi ng/Mohseng/eTransmitting on:?03/11/2025 11:48 AM EDT
--- OUTSIDE RECORDS SUMMARY | 2025-03-11 11:48 | XMS_ITS | Clinical Summary ---
Author Organization [employer] Address [address] [facility] 7t [place] [address] Care Team Providers Care Elevator Worker Name Role Phone Name, Gopi MORRIS Primary Care Provider [phone] Allergies Active Allergy Reactions Criticality Noted Date Comments Metformin 12/28/2018 Other reaction(s): Liver function tests abnormal Metformin Hcl 07/21/2021 Other reaction(s): Unknown Medications benztropine (Cogentin) 1 MG tablet Take 1 tablet by mouth every 12 (twelve) hours. Active lactulose (Chronulac) 10 GM/15ML solution take 15 milliliter by oral route every day PRN 01/15/20 20 Active empagliflozin (Jardiance) 10 MG take 1 [...] at bedtime. Active Diclofenac Sodium 1 % gelIndications:Rig ht hip pain APPLY TOPICALLY TO AFFECTED AREA OF RIGHT HIP TWICE A DAY NEEDED FOR PAIN 100 g 02/03/20 23 Active tiZANidine (Zanaflex) 2 MG tabletIndications: Pain of right hip Take 1 tablet (2 mg) by mouth every 8 (eight) hours if needed for muscle spasms for up to 10 days. 30 tablet 02/17/20 23 Active albuterol 108 (90 Base) MCG/ACT inhalerIndications :COVID-19 virus infection Inhale 2 puffs every 6 (six) hours if needed for wheezing. 18 g 11 12/20/19 24 Active insulin aspart (NovoLOG FLEXPEN) 100 UNIT/ML pen Inject 20 Units under the skin before breakfast, before lunch, and before evening meal. 03/23/20 24 025 Active Blood Pressure kit Use twice a day at home 1 kit 03/23/20 24 Active Lancet Devices (Autolet) lancing deviceIndications: Type 2 diabetes mellitus with hyperosmolarity without coma, without long-term current use of insulin ([facility]) 1 each by Other route 3 times daily. 1 each 05/01/20 24 Active glucose blood (OneTouch Verio) test strip 1 each by Other route 3 times daily. 100 each 05/02/20 24 Active Lancets (Livekick Delica Safety Lancing) miscIndications:Co ntrolled type 2 diabetes mellitus with other specified complication, unspecified whether long-term insulin use (CMS/[facility]) Apply 1 each topically See administration instructions. USE TO TEST BLOOD SUGAR THREE TIMES A DAY. Dx:Controlled type 2 diabetes mellitus with other specified complication, unspecified whether termite control servicer insulin use (CMS/HCC) 100 each 3 05/04/20 24 Active aspirin (Aspirin Low Dose) 81 MG EC tabletIndications: Hyperlipidemia, unspecified hyperlipidemia type TOME 1 TABLETA POR VIA ORAL TODOS [place] 90 tablet 1 08/22/20 24 Active Acetaminophen Extra Strength 500 MG tablet TAKE 1 TABLET BY MOUTH EVERY 8 HOURS IF NEEDED FOR MODERATE PAIN. 90 tablet 1 10/25/20 24 Active UltiCare Alcohol Swabs 70 % padsIndications:Ty pe 2 diabetes mellitus with other specified complication, unspecified whether termite control servicer insulin use (CMS/HCC) USE 1 PAD BY TOPICAL ROUTE 4 TIMES EVERY DAY 100 each 11 11/22/19 25 Active loratadine (Claritin) 10 MG tablet Take 1 tablet (10 mg) by mouth Once per day. 30 tablet 11 12/18/19 25 026 Active FREESTYLE LITE test stripIndications:C ontrolled type 2 diabetes mellitus with other specified complication, unspecified whether termite control servicer insulin use ([facility]),Insulin dependent type 2 diabetes mellitus ([facility]) Use to test blood sugar 3 times daily 100 each 12 12/18/19 25 026 Active Lancets miscIndications:Co ntrolled type 2 diabetes mellitus with other specified complication, unspecified whether termite control servicer insulin use (CMS/[facility]),Insulin dependent type 2 diabetes mellitus ([facility]) Use to test blood sugar 3 times daily 100 each 12/18/19 25 Active Tresiba FlexTouch 200 UNIT/ML injection INJECT 85 UNITS UNDER THE SKIN AT BEDTIME. (PER DR NAME 9 mL 12 12/24/19 25 Active Glycerin-Hypromell ose-PEG 400 (Artificial Tears) 0.2-0.2-1 % solution PLACE 2-3 DROPS INTO BOTH EYES 3 TIMES DAILY NEEDED 15 mL 3 12/28/19 25 Active omeprazole (PriLOSEC) [address] capsuleIndications :Heartburn TAKE 1 CAPSULE BY MOUTH EVERY DAY BEFORE BREAKFAST 90 capsule 1 01/04/20 25 Active atorvastatin (Lipitor) 20 MG tabletIndications: Hyperlipidemia, unspecified hyperlipidemia type TOME 1 TABLETA POR VIA ORAL TODOS [place] 90 tablet 1 01/08/20 25 Active lisinopril 10 MG tabletIndications: Hypertension, unspecified type TOME 1 TABLETA POR VIA ORAL TODOS [place] 90 tablet 1 01/08/20 25 Active BD Pen Needle Edilia 2nd Gen 32G X 4 MM miscIndications:Co ntrolled type 2 diabetes mellitus with other specified complication, unspecified whether termite control servicer insulin use ([facility]) USE 5 TIMES A DAY WITH INSULINS 100 each 5 01/19/20 25 Active Active Problems Problem Noted Date Diagnosed Date [...] DEPARTMENT Provider, Generic External Data 01/17/2025 Refill [facility] [address] [place] [address] Gopi Jackson MD Controlled type 2 diabetes mellitus with other specified complication, unspecified whether termite control servicer insulin use ([facility]) 01/14/2025 Telephone [facility] [address] [place] [address] Rudi Charles MA may recalls 01/05/2025 Refill [facility] [address] [place] [address] Gopi Jackson MD Hyperlipidemia, unspecified hyperlipidemia type; Hypertension, unspecified type 01/02/2025 Refill [facility] [address], [place] [phone] Gopi Jackson MD Heartburn 12/27/2024 Refill [facility] [address] [place] [address] Gopi Jackson MD 12/23/2024 Refill [facility] [address] [place] [address] Gopi Jackson MD 12/18/2024 1:00 PM EST Office Visit [facility] [address] [place] [address] Name, MD Gopi Controlled type 2 diabetes mellitus with other specified complication, unspecified whether long-term insulin use (CMS/HCC) (Primary Dx); Insulin dependent type 2 diabetes mellitus (CMS/HCC); Schizophrenia, unspecified type (CMS/[facility]) from Last 3 Months Immunizations Name Administration [...] Description 04/24/2025 2:30 PM EDT Office Visit [facility] [address] [place] [phone] Name, MD Gopi [address] [place] [address] Health Maintenance Due Date Last Done Comments [...] 12/27/2024 12/27/2023, 12/27/19 SDOH Screening 12/27/2024 12/27/2023 Mammogram 02/07/2025 02/08/2024, 12/30, 01/25/2023, Additional history exists Diabetes: Hemoglobin A1C 08/16/2025 025, 12/18/2024, 07/19/2024, Additional history exists Eye Exam 10/11/2025 10/11/2023 Alcohol/Substance Use Screening 10/12/2025 10/12/2024 Tobacco Screening 10/12/2025 10/12/2024 Diabetes: Urine Protein Screening 02/14/2026 02/14/2025, 07/19/2024, 01/27/2024, Additional history exists Lipid Panel 02/14/2026 02/14/2025, 12/30, 11/17/2023, Additional [...] PLATELET COUNT Routine 02/14/2025 9:58 AM EDT ALBUMIN, RANDOM URINE W/CREATININE Routine 02/14/2025 9:55 AM EDT GLUCOSE, WHOLE BLOOD Routine 02/05/2025 2:10 PM EDT SARS COV2/INFLUENZA A/B AND RSV RNA QL NAAT Routine 02/03/2025 12:08 PM EDT STREP A NUCLEIC ACID Routine 02/03/2025 12:08 PM EDT POCT GLYCATED HEMOGLOBIN, TOTAL Routine 12/18/2024 1:04 PM EST Controlled type 2 diabetes mellitus with other specified complication, unspecified whether long-term insulin use (CMS/HCC) POCT GLUCOSE Routine 12/18/2024 1:00 PM EST Controlled type 2 diabetes mellitus with other specified complication, unspecified whether termite control servicer insulin use (CMS/HCC) BI MAMMOGRAM SCREENING TOMOSYNTHESIS BILATERAL Routine 02/08/2024 2:35 PM EDT HM COLONOSCOPY Routine 03/12/2020 3:02 PM EDT from Last 3 Months or Most Recently Relevant to Health Maintenance Results * Creatinine, Serum (02/14/2025 9:58 AM EDT) Creatinine, Serum 0.69 0.5 - 1.4 mg/dL [facility] Estimated Glomerular Filt Rate >60 [facility] Comment:Chronic Kidney Disea se: Estimated GFR < 60 mL/min/1.84o3Qhoame Kidney Disease: Estimated GFR < 15 mL/min/1.73m2 02/14/2025 9:58 AM EDT 02/14/2025 9:58 AM EDT us Generic External Data Provider LAB BLOOD ORDERAB LES Final Result Performing Organization Address [facility] Co de Phone Number [facility] [address] [place] [phone] * Platelet Count (02/14/2025 9:58 AM EDT) Platelet Count 189 160 - 400 X10*3/uL [facility] 02/14/2025 9:58 AM EDT 02/14/2025 9:58 AM EDT us Generic External Data Provider LAB BLOOD ORDERAB LES Final Result Performing Organization Address [facility] Co de Phone Number [facility] [address] [place] [phone] * (ABNORMAL) ALT (02/14/2025 9:58 AM EDT) Alanine Aminotransferase 44(H) 0 - 31 U/L [facility] 02/14/2025 9:58 AM EDT 02/14/2025 9:58 AM EDT us Generic External Data Provider LAB BLOOD ORDERAB LES Final Result Performing Organization Address [facility] Co de Phone Number [facility] [address] [place] [phone] * (ABNORMAL) AST (02/14/2025 9:58 AM EDT) Aspartate Amino Transferase 41(H) 5 - 31 U/L [facility] 02/14/2025 9:58 AM EDT 02/14/2025 9:58 AM EDT Generic External Data Provider LAB BLOOD ORDERAB LES Final Result Performing Organization Address [facility] Co de Phone Number [facility] [address] [place] [phone] * B Type Natriuretic Peptide (BNP) (02/14/2025 9:58 AM EDT) Pathologist [facility] B Type Natriuretic Peptide 14 <100 pg/mL [facility] 02/14/2025 9:58 AM EDT 02/14/2025 9:58 AM EDT Generic External Data Provider LAB BLOOD ORDERAB LES Final Result Performing Organization Address [facility] Phone Number [facility] [address] [place] [phone] * (ABNORMAL) Hemoglobin A1c (02/14/2025 9:58 AM EDT) Hemoglobin A1c 6.6(H) <6.0 % [facility] Comment:Hemoglobin A1C Refer ence Range Adults: 4.8 - 6.0 % Non diabetic: < 6.0 % Goal: < 7.0 %Additional Action Suggested: > 8.0 %Note: Hemoglobin A1c results are invalid for patients with abnormal amounts of HbF. Blood transfusions may impact the HbA1c concentration in the patient sample. Estimated Average Glucose 143 mg/dL [facility] Comment:eAG = Estimated ave rage glucose which is %A1C expressed asaverage glucose, using the formula of the R5W-BlxneerKkigzov Glucose study (ADAG), Diabetes Care, Vol.31,#8,2007 02/14/2025 9:58 AM EDT 02/14/2025 9:58 AM EDT us Generic External Data Provider LAB BLOOD ORDERAB LES Final Result Performing Organization Address [facility] Co de Phone Number [facility] [address] [place] [phone] * Lipid Panel, Standard (02/14/2025 9:58 AM EDT) Triglycerides 104 <150 mg/dL [facility] Comment:Desirable Triglyceri de: less than 150 mg/dLBorderline High Triglyceride 150-199 mg/dLHigh Triglyceride: 200-499 mg/dLVery High Triglyceride: greater than or equal to 5OO mg/dL Cholesterol 133 <200 mg/dL [facility] Comment:Desirable Cholestero l: less than 200 mg/dLBorderline High Cholesterol: 200-239 mg/dLHigh Cholesterol: greater than 239 mg/dL LDL Cholesterol Calculated 56 <100 mg/dL [facility] Comment:Desirable LDL: less than 100 mg/dLNear Optimal/Above Optimal LDL: 110- 129 mg/dLBorderline High LDL: 130-159 mg/dLHigh LDL: 160-189 mg/dLVery High LDL: greater than or equal to 190 mg/dL HDL Cholesterol 57 >40 mg/dL [facility] Comment:Desirable HDL: great er than 40 mg/dL Note: This HDL assay may give artificially low results in patients with liver disease. 02/14/2025 9:58 AM EDT 02/14/2025 9:58 AM EDT us Generic External Data Provider LAB BLOOD ORDERAB LES Final Result Performing Organization Address [facility]/ZIP Co de Phone Number [facility] [address] [place] [phone] * Albumin, Random Urine W/Creatinine (02/14/2025 9:55 AM EDT) Creatinine, Urine 54.76 mg/dL [facility] Microalbumin Urine 6.0 mg/L [facility] Microalbum Creatinine Ratio Ur 10.9 <30 ug/mg cr [facility] Comment:Albumin/Creatinine R atio Reference Ranges: Normal: < 30 ug/mg creatinine Microalbuminuria: 30 - 300 ug/mg creatinineClinical Albuminuria: > 300 ug/mg creatinine 02/14/2025 9:55 AM EDT 02/14/2025 11:03 AM EDT Generic External Data Provider LAB URINE ORDERAB LES Final Result Performing Organization Address [facility]/ZIP Co de Phone Number [facility] [address] [place] [phone] * (ABNORMAL) Glucose, Whole Blood (02/05/2025 2:10 PM EDT) Pathologist [facility] Glucose, Whole Blood 117(H) 60 - 115 mg/dL [facility] Comment:METER #: [id number] Testing performed in the Endocrinology Department [address], [address], [facility]. 02/05/2025 2:10 PM EDT 02/05/2025 2:15 PM EDT Generic External Data Provider LAB BLOOD ORDERAB LES Final Result Performing Organization Address [facility]/ZIP Co de Phone Number [facility] [address] [place] [phone] * (ABNORMAL) Strep A Nucleic Acid (02/03/2025 12:08 PM EDT) Pathologist [facility] IDNOW SERIAL# [id number] [facility] Strep A Nucleic Acid Positive(A ) Negative [facility] Comment:All test results mus t [...] GENERAL ORDERABLES Final Result Performing Organization Address [facility] Co de Phone Number [facility] [address] [place] [phone] * SARS-CoV-2 RNA, Influenza A/B, and RSV RNA, Ql NAAT (02/03/2025 12:08 PM EDT) Influenza A PCR NEGATIVE Negative [facility] Influenza B PCR NEGATIVE Negative [facility] Resp Syncy Virus RNA Qual PCR NEGATIVE Negative [facility] SARS COV2 PCR NEGATIVE Negative [facility] Comment:All test results mus t be [...] use by authorized laboratories.Testing performed on the [employer] GeneXpert utilizingreal-time RT-PCR.All SARS CoV2 and positive influenza A/B results arereported to [facility]. 02/03/2025 12:0 8 PM EDT 02/03/2025 12:10 PM EDT us Generic External Data Provider LAB MICROBIOLOGY - GENERAL ORDERABLES Final Result Performing Organization Address [facility] Co de Phone Number [facility] [address] [place] [phone] * (ABNORMAL) POCT HGB A1C (12/18/2024 1:04 PM EST) Hemoglobin A1C 6.8(A) 4.0 - 6.0 % QC Media Lot # [id number] Lot# Expiration Date ,026 Blood 12/18/2024 1:04 PM EST us Nguyễn Name POINT OF CARE TEST ENTER/EDIT OR DERABLES Final Result * POCT Glucose (12/18/2024 1:00 PM EST) Glucose Blood, POC 141 60 - 200 mg/dL QC Media Lot # [id number] Lot# Expiration Date ,025 Blood Capillary blood specimen / Unknown 12/18/2024 1:00 PM EST Gopi Name POINT OF CARE TEST ENTER/EDIT OR DERABLES Final Result * BI Mammogram Screening Tomosynthesis Bilateral (02/08/2024 2:35 PM EDT) Anatomical Region Laterality Modality Breast Bilateral Mammography 02/08/2024 2:35 PM EDT Narrative 02/13/2024 6:44 AM EDT ? [facility] [place] ? [address] ?[place] [address] ? Mammography Report ? Signed ? Patient: Augie Yenno,Priscila ?MR#: ?? [id number] ? : 1955 ?Acct:[id number] ? Age/Sex: 68 / F ?ADM Date: 04/10/24 ? Loc: HO.MAMMO ? Attending Dr: Gopi Name MD ? Ordering Physician: Name,Gopi MD ?Results: 2Benign Fi ?? ndings ? Date of Service: 02/08/24 ?Follow Up: 1 Year From Orig ?? inal Mammogram ? Procedure(s): MM tomosynthesis screening BI ?? Accession Number(s): [id number] ? cc: Name,Gopi MORRIS ? EXAMINATION: ?? [...] 0640 ? DD/ 1435 ? TD/TT: ? Field Nurse Case Manager: ? Procedure Note Donotnhiter, Image - 02/13/2024 [place] [facility] [address] [place] [address] Mammography Report Signed Patient: Shaista MariscalR#: [id number] : 4Acct:[id number] Age/Sex: 68 / FADM Date: 02/08/24 Loc: HO.MAMMO Attending Dr: Gopi Jackson MD Ordering Physician: Gopi Jackson MDResults: 2Benign Fi ndings Date of Service: 02/08/24Follow Up: 1 Year From Orig inal Mammogram Procedure(s): MM tomosynthesis screening BI Accession Number(s): [id number] cc: Gopi Jackson MD EXAMINATION: MM SCREENING [...] in OV> 02/13/24 0640 DD/ 1435 TD/TT: Field Nurse Case Manager: us Gopi Name IMG BI PROCEDURES Final Result * Hm Colonoscopy (03/12/2020 3:02 PM EDT) Colonoscopy Normal Normal Narrative Eileen Delgado - 03/12/2020 3:02 PM EDT Recommended 10 year follow up ( ) Historical Provider HEALTH MAINTENANCE Final Result from Last 3 Months or Most Recently Relevant to Health Maintenance Insurance [facility] MEDICARE Care Teams Elevator Worker Relationship Specialty Start Date End Date Name, MD Gopi [address] [place] [phone] PCP - General Family Medicine 02/04/16 [facility] 05/31/22
--- OUTSIDE RECORDS SUMMARY | 2025-03-11 11:48 | XMS_ITS | Clinical Summary ---
Author Organization [facility] [place] [address] Care Team Providers Care Security Orderly Name Role Phone Unavailable Primary Care Provider [...]
--- OUTSIDE RECORDS SUMMARY | 2025-03-11 11:48 | XMS_ITS ---
Author Organization [facility] Address [address] [place] [address] Care Team Providers Care Test Tech Name Role Phone Name Gopi MORRIS Primary Care Provider UnavailMycahl Elizabeth Jr DEVINENISHARONDA Unavailable Unavailable REASON FOR VISIT rectal bleeding,diarrhea Encounters Encounter Location Date Provider Diagnosis [facility] [address] [place], [place] [phone] 10/14/2023 Mychal Almanzar Jr Plan Of Treatment No Information Progress Notes * [place] CHANB: 1955 (69 yo F)Acc No.[id number]:10/14/2023 COLON WITH MAC Patient:?SOFYA ANN ELIZABETH ABERNATHY Provider:?Mychal Almanzar MD :1955???Age:68 Y???Sex:Female D ate:10/14/2023 Address:[address] [place] [address] [address], [facility] Pcp:Gopi Jackson MD Subjective: * Chief Complaints: [...] MD Date:?1 12/15/2022 Generated for Manny degroot/Karen/Elodiaitting on:?03/11/2025 11:47 AM EDT
--- OUTSIDE RECORDS SUMMARY | 2025-03-11 11:48 | XMS_ITS | Encounter Summary ---
Author Organization [employer] Address [address] [facility] 7t [place] [address] Care Team Providers Care Risk Advisor Name Role Phone Name, Gopi MORRIS Primary Care Provider [phone] Reason for Visit * Reason Comments Med Change Request Encounter Details Date Type Department Care Team ([facility] Contact Info) Description 10/05/2023 Refill [facility] [address] [place], [place] [phone] Johana Garibay, ANP [address] [place] [address] Acute bacterial conjunctivitis of both eyes Social [...] Description 04/24/2025 2:30 PM EDT Office Visit [facility] [address] [place] [address] Name, MD Gopi [address] [place] [phone] documented as of this encounter Visit Diagnoses Diagnosis Acute bacterial conjunctivitis of both eyes documented in this encounter Care Teams Risk Advisor Relationship Specialty Start Date End Date Name, MD Gopi [address] [place] [address] PCP - General Family Medicine 02/04/16 [facility] [place] 05/31/22 documented as of this encounter
--- OUTSIDE RECORDS SUMMARY | 2025-03-11 11:48 | XMS_ITS ---
Author Organization [facility] Address [address] [place] [phone] Care Team Providers Care Photograph Finisher Name Role Phone Name Gopi MORRIS Primary Care Provider Unavailniki e Mychal Almanzar Jr DEVINENI, PREVEEN Unavailable Unavailable REASON FOR VISIT update on ozempic Encounters Encounter Location Date Provider Diagnosis [facility] [address] [place] [phone] 10/12/2023 Mychal Almanzar Jr Plan Of Treatment No Information Progress Notes * [place] CHANB: 1955 (68 yo F)Acc No.[id number]:10/12/2023 Patient:?COWARTCASSIE JUAREZMAGAlexandru JOSEMANUEL :1955???Age:68 Y???Sex:Female Address:[address] [facility] [address], [place] [address] * true * Date:? Generated for Printi ng/Karen/eTransmitting on:?03/11/2025 11:48 AM EDT
--- OUTSIDE RECORDS SUMMARY | 2025-03-11 11:48 | XMS_ITS | Encounter Summary ---
Author Organization [employer] [facility] Address [address] [place] [address] 7t [place] [address] Care Team Providers Care Manager Recovery Name Role Phone Name, Gopi MORRIS Primary Care Provider [phone] Encounter Details Date Type Department Care Team ([facility] Contact Info) Description 03/31/2023 Abstract [facility] [address] [place] [address] [phone] Gopi Jackson MD [address] [place] [address] [phone] Social History Tobacco Use Types Packs/Day Years [...] Description 04/24/2025 2:30 PM EDT Office Visit [facility] [address] [place] [phone] NameGopi MD [address] [place] [address] [phone] documented as of this encounter Procedures Procedure [...] on filedocumented in this encounter Care Teams Manager Recovery Relationship Specialty Start Date End Date Name, MD Gopi [address] [place] [address] PCP - General Family Medicine 02/04/16 [facility] 05/31/22 documented as of this encounter
--- OUTSIDE RECORDS SUMMARY | 2025-03-11 11:48 | XMS_ITS | Encounter Summary ---
Author Organization [employer] Address [address] [facility] 7[address] [place] [address] Care Team Providers Care Blow Up Operator Name Role Phone Name, Gopi MORRIS Primary Care Provider [phone] Reason for Visit * Reason Onset Date Comments Appointment Request 11/13/2024 Encounter Details Date Type Department Care Team ([facility] Contact Info) Description 11/13/2024 Telephone [facility] MEDICINE [address] [place], [place] [phone] Name, MD Gopi [address] [place], [place] [phone] Appointment Request Social History Tobacco Use Types [...] encounter Miscellaneous Notes * Telephone Encounter - Susna Moody - 11/13/2024 2:55 PM EST Tc from Nicole with [facility] requesting schedule f/u appt with pcp in regards peripheral neuropathy. [phone] documented in this encounter Plan of Treatment Upcoming Encounters Date Type Department Care Team (Late st Contact Info) Description 04/24/2025 2:30 PM EDT Office Visit [facility] MEDICINE [address] [place] [address] Name, MD Gopi [address] [place] [address] documented as of this encounter Visit Diagnoses Not on filedocumented in this encounter Additional Health Concerns Assessment Noted Time PHQ-9 Depression Total Score: 0 12/27/19 24 11:17 AM EST documented as of this encounter Care Teams Blow Up Operator Relationship Specialty Start Date End Date Name, MD Gopi [address] [place] [address] PCP - General Family Medicine 02/04/16 [facility] 05/31/22 documented as of this encounter
--- OUTSIDE RECORDS SUMMARY | 2025-03-11 11:48 | XMS_ITS | Encounter Summary ---
Author Organization [employer] Address [address] [facility] 7t [place] [address] Care Team Providers Care Fleet Manager Name Role Phone Name, Gopi MORRIS Primary Care Provider [phone] Reason for Visit * Reason Onset Date Comments FYI 02/01/2024 Encounter Details Date Type Department Care Team ([facility] Contact Info) Description 02/01/2024 Telephone [facility] MEDICINE [address] [place], [place] [phone] Name, MD Gopi [address] [place], [place] [phone] FYI Social History Tobacco Use Types Packs/Day [...] - 02/01/2024 3:14 PM EDT Tc from A calling to inform PCP pt get seen yesterday by endocrinology socialist, however the office discharge the pt due to peter control on diabetes, also wanted to inform pt is traveling to [place] from 02/18 and returning on 03/05 and she is going to put services on hold during traveling. Pancho its going to be on charge of pt medications during traveling days. Any questions contact Nicole at [phone] documented in this encounter Plan of Treatment Upcoming Encounters Date Type Department Care Team (Late st Contact Info) Description 04/24/2025 2:30 PM EDT Office Visit [facility] MEDICINE [address] [place] [address] Name, MD Gopi [address] [place] [address] documented as of this encounter Visit Diagnoses Not on filedocumented in this encounter Additional Health Concerns Assessment Noted Time PHQ-9 Depression Total Score: 0 12/27/19 24 11:17 AM EST documented as of this encounter Care Teams Fleet Manager Relationship Specialty Start Date End Date Name, MD Gopi [address] [place] [address] PCP - General Family Medicine 02/04/16 [facility] 05/31/22 documented as of this encounter
--- OUTSIDE RECORDS SUMMARY | 2025-03-11 11:48 | XMS_ITS | Patient Health Record ---
Author Organization [facility] Address [address] [place] [address] Care Team Providers Care Boiler Repair Supervisor Name Role Phone Name Gopi MORRIS Primary Care Provider UnavailMychal Elizabeth Jr Unavailable SHARONDA WEBBER Unavailable Unavailable Allergies Allergen (clinical [...] Problem Status W/U Status Risk Notes Problem 177752361 Colon cancer screening (Z12.11) Active confirmed Problem 52452680 Rectal bleeding (K62.5) Active confirmed Problem Gastric polyp (00972161) Gastric polyp (K31.7) Active confirmed Problem 71638469 Constipation, unspecified constipation type (K59.00) Active confirmed Problem 63857335 Diarrhea, unspecified type (R19.7) Active confirmed Problem 19280004 Cirrhosis of liver without ascites, unspecified hepatic cirrhosis type (K74.60) Active confirmed Problem 785382142 Microscopic colitis, unspecified microscopic colitis type (K52.839) [...] Start Date Coverage End Date MEDICARE OF [place] [address] [place] ED[place] [address] [id number] KAY CHAN Self - patient is the insured MEDICAID OF [facility] [address] [facility] [place] [address] [id number] KAY CHAN Self - patient is the [...]
== END 2025-03-11 11:03 | disposition home or self-care (01) ==
LOC: HO.MAMMO 11:02
PROVIDERS: PCP Physician Assistant Medical; Visit Provider Internal Medicine Geriatric Medicine
DX: Z12.31 Encounter for screening mammogram for malignant neoplasm of breast (principal)
CPT/HCPCS: 77063; 77067

== ENCOUNTER → 2025-03-11 11:45 | Outpatient (BNV) | payer MEDICARE, MEDICAID, SELFPAY | PROVIDERS: PCP Physician Assistant Medical; Visit Provider Internal Medicine | DX: Z12.31 Encounter for screening mammogram for malignant neoplasm of breast (principal) | CPT/HCPCS: 77063; 77067 ==

== ENCOUNTER 2025-05-07 13:35 | Outpatient (AMB) | payer MEDICARE, MEDICAID, SELFPAY ==
--- NOTE | 2025-05-07 13:38 | A.OFFVIS_ITS ---
Vital Signs 05/07/25 13:39 05/07/25 14:11 Height 5 ft 2 in Weight 185 lb 3.013 oz BMI 33.9 BP 150/70 H 124/72 Blood Pressure Location Rt brachial Position Sitting Pulse 76 Pulse Source Pulse Oximeter Pulse Oximetry (%) 96 Oxygen Delivery Method Room Air Intake Visit Reasons: T2DM Intake Note: Patient present today to follow up on Type 2 Diabetes Mellitus. Last Diabetic Eye exam: 12/2024 Last Podiatry Visit: Does not see a Inventory Controller HgA1C: 6.6%, 05/07/2025 Random Glucose: 99 mg/dL Network Support Analyst Required: Yes Network Support Analyst Language: Automobile Damage Appraiser Services: Network Support Analyst Present Network Support Analyst Name: STEVEN Potts Accompanied by: Self / Same As Patient Allergies metformin (METFORMIN) Allergy (Intermediate, Verified 05/07/25 13:41) ELEVATED LIVER ENZYMES, liver damage HPI Comments Details: This is a 69-year-old female with a past medical history of osteoarthritis, liver cirrhosis, left breast cancer, obesity, dyslipidemia, hypertension, schizophrenia, multinodular goiter and type 2 diabetes presenting for diabetic management. Turkmen video certified court interpreter used for visit. She had oophorectomy 01/18/2020. She has a history of left breast cancer. She had a lumpectomy and completed radiation therapy. Hemoglobin A1c 6.7% today. Reviewed glucometer download Blood sugars in target range 77% of the time Average glucose 152 Lowest 72 Highest 304 Readings per day 2.5 She had 1 reading of 304. No other readings >250. She does not want to use a sensor. We dicussed this again today. She limits portion sizes of carbohydrates. Once in a while has a soda, but this is rare. No alcohol. Current medication regimen: Ozempic 2 mg weekly, Tresiba 85 units in the morning, Jardiance 10 mg, Admelog glucose <180 0 units, glucose 180-220 7 units, glucose >220 14 units Hypoglycemia symptoms: Dizzy and weak. Very rare episodes. Treats with candy or juice. No glucose readings <70 since her last visit. Hyperglycemia symptoms: none Microvascular complications: neuropathy, nephropathy (microalbuminuria). Macrovascular complications: None Hypertension: treated with lisinopril 10 mg. Hyperlipidemia: treated with atorvastatin 20 mg. LDL at goal <100. Thyroid nodules evaluated previously by Dr. Davis. She had fine-needle aspiration on 11/27/2020 right lower pole nodule, consistent with benign follicular nodule. Per note plan is to follow with serial ultrasounds, and her primary care provider can check an ultrasound about 2-3 years time. If there is significant change in the size or characteristics of the nodules, patient should be referred back to endo specialist for this. ROS: Constitutional: No unexplained weight loss, fever, chills. Respiratory: No shortness of breath Cardiovascular: No chest pain Neurologic: No headache, dizziness, syncope Skin: No open wounds. Physical exam: Constitutional: Alert, in no distress. Eyes: Pupils are equal, round and reactive to light. Extraocular muscles intact. Neck: Supple, Full range of motion. No lymphadenopathy. Respiratory: Clear to auscultation. Cardiovascular: S1 S2 regular. No murmurs. 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 Social History Household Members: None Housing: Apartment Do you presently have visiting nurse or other home services: Yes ([facility] ) Alcohol intake: never Patient Tobacco Use Status: Former Tobacco user Second Hand Smoke Exposure: No service: No Current occupational status: unemployed Current occupation: rt handed Physical Exam Vital Signs: Last Vital Signs Pulse 76 05/07/25 13:39 BP 150/70 H 05/07/25 13:39 Pulse Ox 96 05/07/25 13:39 Oxygen Delivery Method Room Air 05/07/25 13:39 BMI result Body Mass Index 33.9 Results AMB Hemoglobin A1c AMB Hemoglobin A1c 6.6 % Last Edit by STEVEN Potts on 05/07/25 13:58 Results Reviewed Results Reviewed: Laboratory Last Values Glucose (Clinic) 99 mg/dL (60-115) 05/07/25 13:49 Laboratory Tests 02/14/25 02/14/25 05/07/25 09:55 09:58 13:42 Plt Count 189 Creatinine 0.69 Estimated GFR > 60 Hgb A1c (Clinic) 6.6 H AST 41 H ALT 44 H Triglycerides 104 Cholesterol 133 LDL Cholesterol, Calc 56 HDL Cholesterol 57 Urine Creatinine 54.76 Urine Microalbumin 6.0 Microalb/Creat Ratio 10.9 Assessment & Plan Assessment & Plan (1) Diabetic nephropathy associated with type 2 diabetes mellitus: Code(s): E11.21 - Type 2 diabetes mellitus with diabetic nephropathy Category: Medical (2) Controlled type 2 diabetes mellitus: Code(s): E11.9 - Type 2 diabetes mellitus without complications Category: Medical Plan In summary this is a 69-year-old female with controlled type 2 diabetes with microvascular complications. Continue Ozempic 2 mg weekly. Continue Tresiba 85 units daily. Continue Jardiance 10 mg daily. Continue Admelog glucose <180 0 units, glucose 180-220 7 units, glucose >220 14 units Treatment of hypoglycemia reviewed with the patient. Glucose tablets sent to pharmacy. Lifestyle modifications reviewed with the patient. We discussed complications of uncontrolled type 2 diabetes. Continue annual eye exams. Follow up in 3 months for Type II diabetes. 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
[2025-05-07 13:39] VITALS: BP 150/70; PULSE 76; O2SAT 96; BMI 33.9
[2025-05-07 13:54] LABS: Glucose, Whole Blood 99 mg/dL (60-115)
[2025-05-07 14:11] VITALS: BP 124/72
--- OUTSIDE RECORDS SUMMARY | 2025-05-07 14:19 | XMS_ITS | Patient Health Record ---
Author Organization [facility] Address [address] [place] [address] Care Team Providers Care Sales Leader Name Role Phone Name Gopi MORRIS Primary [...] Problem Status W/U Status Risk Notes Problem 348509568 Colon cancer screening (Z12.11) Active confirmed Problem 10169424 Rectal bleeding (K62.5) Active confirmed Problem Gastric polyp (46445451) Gastric polyp (K31.7) Active confirmed Problem 28106114 Constipation, unspecified constipation type (K59.00) Active confirmed Problem 42752801 Diarrhea, unspecified type (R19.7) Active confirmed Problem 78160705 Cirrhosis of liver without ascites, unspecified hepatic cirrhosis type (K74.60) Active confirmed Problem 187616786 Microscopic colitis, unspecified microscopic colitis type (K52.839) [...] [place] [address] [place] [address] [id number] KAY CHAN Self - patient is the insured MEDICAID [facility] [address] [place] [address] [id number] KAY CHAN Self - patient is the [...]
--- OUTSIDE RECORDS SUMMARY | 2025-05-07 14:19 | XMS_ITS | Clinical Summary ---
Author Organization [employer] [place] [address] Care Team Providers Care Carpentry Teacher Name Role Phone Unavailable Primary Care Provider [...] 2023-2 5 season) 2024 Influenza Vaccine (#1) 2025 RSV Immunization Adult Patie nts (1 [...]
--- OUTSIDE RECORDS SUMMARY | 2025-05-07 14:19 | XMS_ITS | Encounter Summary ---
Author Organization [employer] Address [address] [facility] 7t [place] [address] Care Team Providers Care Sales Center Manager Name Role Phone Name, Gopi MORRIS Primary Care Provider [phone] Encounter Details Date Type Department Care Team ([facility] Contact Info) Description 05/07/2025 Orders Only GENERIC EXTERNAL DATA DEPARTMENT Provider, [...] What is your housing situation today? I do not have housing (Staying with others, in a hotel, in a group home, living outside on the street, on a beach, in a car, or in a park 04/24/[address] you li ve. Do you have problems with any of the following? None of the above 04/24/2025 Food Insecurity Answer Date Recorded Within the past 12 months, y ou worried that your food would run out before you got money to buy more: Never True 04/24/2025 Within the past 12 months,th e food you bought just didn't last and you didn't have enough money to get more: Never True Transportation Answer Date Recorded In the past 12 months, has l ack of transportation kept you from medical appts, meetings, work or from getting things needed for daily living? No 04/24/2025 Utilities Answer Date Recorded In the past 12 months, has t he electric, gas, oil or water [employer] threatened to shut off services in your home? No 04/24/2025 Depression Answer Date Recorded Patient Health Questionnaire-2 Score 0 12/27/2023 Internet Access Answer Date Recorded Internet Access Q1 Yes 04/24/2025 Internet Access Q2 Not on file 04/24/2025 Comments No Sex and Gender Information Value Date Recorded Sex Assigned at Female 08/30/2022 10:17 AM EDT Legal Sex Female 10:17 AM EDT Gender Identity Female 08/30/2022 10:17 AM EDT Sexual Orientation Straight 08/30/2022 10 :17 AM EDT documented as of this encounter Plan of Treatment Not on file documented as of this encounter Procedures Procedure Name Priority Date/Time Associated Diagnosis Comments GLUCOSE, WHOLE BLOOD Routine 05/07/2025 1:49 PM EDT documented in this encounter Results * Glucose, Whole Blood (05/07/2025 1:49 PM EDT) Glucose, Whole Blood 99 60 - 115 mg/dL [facility] Comment:METER #: [id number] Testing performed in the Endocrinology Department [address], [address], [facility]. 05/07/2025 1:49 PM EDT 05/07/2025 1:53 PM EDT us Generic External Data Provider LAB BLOOD ORDERAB LES Final Result [facility] [address] [place] [address] [phone] documented in this encounter Visit Diagnoses Not on filedocumented in this encounter Additional Health Concerns Assessment Noted Time PHQ-9 Depression Total Score: 0 12/27/19 24 11:17 AM EST documented as of this encounter Care Teams Sales Center Manager Relationship Specialty Start Date End Date Name, MD Gopi [address] [place] [address] PCP - General Family Medicine 02/04/16 [facility] 05/31/22 documented as of this encounter
== END 2025-05-07 14:35 | disposition home or self-care (01) ==
LOC: HO.ENCR 13:36
PROVIDERS: PCP Internal Medicine Geriatric Medicine; Visit Provider Physician Assistant Medical
DX: E11.29 Type 2 diabetes mellitus with other diabetic kidney complication (principal); R80.9 Proteinuria, unspecified; Z79.4 Long term (current) use of insulin; E11.21 Type 2 diabetes mellitus with diabetic nephropathy

== ENCOUNTER → 2025-05-07 13:35 | Outpatient (BNVA) | payer MEDICARE, MEDICAID, SELFPAY | PROVIDERS: PCP Internal Medicine Geriatric Medicine; Visit Provider Physician Assistant Medical | DX: E11.21 Type 2 diabetes mellitus with diabetic nephropathy (principal); Z79.4 Long term (current) use of insulin; I10 Essential (primary) hypertension; E78.5 Hyperlipidemia, unspecified; Z79.899 Other long term (current) drug therapy; E66.9 Obesity, unspecified; Z68.33 Body mass index [BMI] 33.0-33.9, adult | CPT/HCPCS: 82947; 83036; 99212 ==

== ENCOUNTER 2025-06-26 09:41 | Outpatient (REF) | payer MEDICARE, MEDICAID, SELFPAY ==
--- NOTE | ~2025-06-26 | XR_ITS ---
EXAM: Three-view cervical spine x-ray TECHNIQUE: AP, lateral, AP open-mouth odontoid view INDICATION: pt with cervicalgia hx of lobular cancer PRIOR: September 07, 2017 FINDINGS: There is straightening of the cervical lordosis. There is no prevertebral soft tissue swelling. C2-3 demonstrates mild disc space narrowing. C4-5 demonstrates subtle retrolisthesis and mild disc space narrowing endplate osteophytes. C5-6 demonstrates mild to moderate disc space narrowing with endplate osteophytes. C6-7 demonstrates mild disc space narrowing. XR/XR cervical spine 3V IMPRESSION: There is straightening of the expected cervical lordosis. This can be idiopathic, but can also be related to degenerative change, muscle spasm, or posterior soft tissue injury. Moderate degenerative disc disease. Electronically signed by: Vito Silva MD 06/26/2025 10:45 AM EDT
--- OUTSIDE RECORDS SUMMARY | 2025-06-26 10:27 | XMS_ITS | Clinical Summary ---
Author Organization [employer] [facility] [place] [address] Care Team Providers Care Physician Aide Name Role Phone Unavailable Primary Care Provider [...] 2) 2004 Colorectal Cancer Screening: Colonoscopy 11/25/2023 Falls Risk Assessment 11/25/2023 Hepatitis C Screening 11/25/2023 Osteoporosis Screening (Bone Density Screening) 11/25/2023 Social Influencers of Health Screening 11/25/2023 COVID-19 Vaccine ( - 2023-2 5 season) 2024 Depression Screening 10/31/2024 Influenza Vaccine (#1) 2025 RSV Immunization Adult [...]
--- OUTSIDE RECORDS SUMMARY | 2025-06-26 10:27 | XMS_ITS | Patient Health Record ---
Author Organization [facility] Address [address] [place] [address] Care Team Providers Care Welder Fabricator Name Role Phone Name Gopi MORRIS Primary Care Provider UnavailMychal Elizabeth Jr Unavailable [phone] SHARONDA WEBBER Unavailable Unavailable Allergies Allergen [...] Problem Status W/U Status Risk Notes Problem 115709208 Colon cancer screening (Z12.11) Active confirmed Problem 28824996 Rectal bleeding (K62.5) Active confirmed Problem Gastric polyp (64765434) Gastric polyp (K31.7) Active confirmed Problem 23683967 Constipation, unspecified constipation type (K59.00) Active confirmed Problem 43539315 Diarrhea, unspecified type (R19.7) Active confirmed Problem 92452314 Cirrhosis of liver without ascites, unspecified hepatic cirrhosis type (K74.60) Active confirmed Problem 945604508 Microscopic colitis, unspecified microscopic colitis type (K52.839) [...] [place] [address] [place] [address] [id number] KAY CHAN Self - patient is the insured MEDICAID OF [facility] [address] [facility] [place] [address] [id number] KAY CHAN Self - patient is the [...]
== END 2025-06-26 09:42 | disposition home or self-care (01) ==
LOC: HO.HHCX 09:41
PROVIDERS: Visit Provider Nurse Practitioner Family
DX: M54.2 Cervicalgia (principal)
CPT/HCPCS: 72040

== ENCOUNTER → 2025-06-26 09:47 | Outpatient (BNV) | payer MEDICARE, MEDICAID, SELFPAY | PROVIDERS: Visit Provider Radiology Diagnostic Radiology | DX: M50.322 Other cervical disc degeneration at C5-C6 level (principal) | CPT/HCPCS: 72040 ==

== ENCOUNTER 2025-08-16 11:18 | Outpatient (AMB) | payer MEDICARE, MEDICAID, SELFPAY ==
--- NOTE | 2025-08-16 11:23 | A.OFFVIS_ITS ---
Vital Signs 08/16/25 11:26 Height 5 ft 2 in Weight 182 lb 8.684 oz BMI 33.4 BP 112/62 Blood Pressure Location Lt brachial Position Sitting Pulse 87 Pulse Source Pulse Oximeter Pulse Oximetry (%) 97 Oxygen Delivery Method Room Air Intake Visit Reasons: Type II diabetes Intake Note: Patient present today to follow up on Type 2 Diabetes Mellitus. Last Diabetic Eye exam: 12/2024 Last Podiatry Visit: Jul 2025 Random Glucose: 157 mg/dl Hgb A1C: 6.7% 08/16/2025 Prop Making Supervisor Required: Yes Prop Making Supervisor Language: Embosser Operator Services: Prop Making Supervisor Present Prop Making Supervisor Name: Jaz Longo907- Voyce Information Interpreted: non-clinical & clinical Accompanied by: Self / Same As Patient Allergies metformin (METFORMIN) Allergy (Intermediate, Verified 08/16/25 11:27) ELEVATED LIVER ENZYMES, liver damage HPI Comments Details: This is a 69-year-old female with a past medical history of osteoarthritis, liver cirrhosis, left breast cancer, obesity, dyslipidemia, hypertension, schizophrenia, multinodular goiter and type 2 diabetes presenting for diabetic management. 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 She had oophorectomy 01/18/2020. She has a history of left breast cancer. She had a lumpectomy and completed radiation therapy. Hemoglobin A1c 6.7% today. I reviewed her glucometer data for the last 2 weeks. Her average glucose is 143 mg/dL. She is in range 81% of the time. Her lowest sugar is 94 and her highest sugar is 226. She has repeatedly declined a CGM. She limits portion sizes of carbohydrates. Once in a while has a soda, but this is rare. No alcohol. Current medication regimen: Ozempic 2 mg weekly, Tresiba 85 units in the morning, Jardiance 10 mg, Admelog glucose <180 0 units, glucose 180-220 7 units, glucose >220 14 units Hypoglycemia symptoms: No interval episodes. Hyperglycemia symptoms: none Microvascular complications: neuropathy, nephropathy (microalbuminuria). Macrovascular complications: None Hypertension: treated with lisinopril 10 mg. Hyperlipidemia: treated with atorvastatin 20 mg. LDL at goal <100. Thyroid nodules evaluated previously by Dr. Davis. She had fine-needle aspiration on 11/27/2020 right lower pole nodule, consistent with benign follicular nodule. Per note plan is to follow with serial ultrasounds, and her primary care provider can check an ultrasound about 2-3 years time. If there is significant change in the size or characteristics of the nodules, patient should be referred back to endo specialist for this. Last ultrasound was in 2021. ROS: Constitutional: No unexplained weight loss, fever, chills. Respiratory: No shortness of breath Cardiovascular: No chest pain Neurologic: No headache, dizziness, syncope Skin: No open wounds. Physical exam: Constitutional: Alert, in no distress. Eyes: Pupils are equal, round and reactive to light. Extraocular muscles intact. Neck: Supple, Full range of motion. No lymphadenopathy. No palpable neck or thyroid masses. Respiratory: Clear to auscultation. Cardiovascular: S1 S2 regular. No murmurs. Feet: Warm and well perfused. No clubbing, cyanosis or edema. Intact DP pulses. There is a 1 cm firm, dry, tender lesion on the plantar surface of the left foot. No open wounds or ulcers. [facility] Medical History Controlled type 2 diabetes mellitus Sleep apnea History of left breast cancer Colitis HTN (hypertension) Hypercalcemia Hirsutism Obesity Dyslipidemia Hypertension Diabetic nephropathy associated with type 2 diabetes mellitus USP (current) use of insulin Diabetes type 2, uncontrolled Liver cirrhosis Multinodular goiter (nontoxic) Urinary incontinence Bipolar disorder Hyperlipidemia Surgical History History of esophagogastroduodenoscopy (EGD) Hx of removal of ovary Hx of cholecystectomy Hx of colonoscopy Status post laser cataract surgery of both eyes History of tonsillectomy History of tubal ligation Status post left breast lumpectomy History of appendectomy Family History Father History of lung cancer Mother No problems noted. Social History Household Members: None Housing: Apartment Do you presently have visiting nurse or other home services: Yes ([facility] ) Alcohol intake: never Patient Tobacco Use Status: Former Tobacco user Second Hand Smoke Exposure: No service: No Current occupational status: unemployed Current occupation: rt handed Physical Exam Vital Signs: Last Vital Signs Pulse 87 08/16/25 11:26 BP 112/62 08/16/25 11:26 Pulse Ox 97 08/16/25 11:26 Oxygen Delivery Method Room Air 08/16/25 11:26 BMI result Body Mass Index 33.4 Results AMB Hemoglobin A1c AMB Hemoglobin A1c 6.7 % Last Edit by STEVEN Quiñones on 08/16/25 11:43 Results Reviewed Results Reviewed: Laboratory Last Values Glucose (Clinic) 157 mg/dL (60-115) H 08/16/25 11:32 Laboratory Tests 02/14/25 02/14/25 08/07/25 09:55 09:58 14:59 Creatinine 0.71 Estimated GFR > 60 AST 29 ALT 43 H Triglycerides 104 Cholesterol 133 LDL Cholesterol, Calc 56 HDL Cholesterol 57 Urine Creatinine 54.76 Urine Microalbumin 6.0 Microalb/Creat Ratio 10.9 Assessment & Plan Assessment & Plan (1) Diabetic nephropathy associated with type 2 diabetes mellitus: Code(s): E11.21 - Type 2 diabetes mellitus with diabetic nephropathy Category: Medical (2) Controlled type 2 diabetes mellitus: Code(s): E11.9 - Type 2 diabetes mellitus without complications Category: Medical (3) Hypertension: Code(s): I10 - Essential (primary) hypertension Category: Medical Qualifiers: Hypertension type: primary hypertension Qualified Code(s): I10 - Essential (primary) hypertension (4) Dyslipidemia: Code(s): E78.5 - Hyperlipidemia, unspecified Category: Medical (5) Thyroid nodule: Code(s): E04.1 - Nontoxic single thyroid nodule Category: Medical (6) Left foot pain: Code(s): M79.672 - Pain in left foot Category: Medical Plan In summary this is a 69-year-old female with controlled type 2 diabetes with microvascular complications. Continue Ozempic 2 mg weekly. Continue Tresiba 85 units daily. Continue Jardiance 10 mg daily. Continue Admelog glucose <180 0 units, glucose 180-220 7 units, glucose >220 14 units Treatment of hypoglycemia reviewed with the patient Lifestyle modifications reviewed with the patient. We discussed complications of uncontrolled type 2 diabetes. Continue annual eye exams. She has a small tender lesion on the bottom of the left foot which may be a plantar wart. Refer to podiatry. She will have lab work done prior to her next appointment. Ordered TSH and thyroid ultrasound. Follow up in 3 months for Type II diabetes. Orders: Orders Creatinine 3 Months E11.65 - Type 2 diabetes mellitus with hyperglycemia, E11.9 - Type 2 diabetes mellitus without complications Lipid Panel 3 Months E11.65 - Type 2 diabetes mellitus with hyperglycemia, E78.5 - Hyperlipidemia, unspecified Microalbumin, Random (w Creat) 3 Months E11.9 - Type 2 diabetes mellitus without complications US thyroid Today E04.1 - Nontoxic single thyroid nodule AMB Hemoglobin A1c Today E11.65 - Type 2 diabetes mellitus with hyperglycemia Hemoglobin A1c 3 Months E11.65 - Type 2 diabetes mellitus with hyperglycemia, R73.9 - Hyperglycemia, unspecified TSH reflex Free T4 3 Months E11.65 - Type 2 diabetes mellitus with hyperglycemia Referrals Podiatry Referral M79.672 - Pain in left foot Patient Instructions: Medications for diabetes: Ozempic 2 mg weekly, Tresiba 85 units in the morning, Jardiance 10 mg, Admelog glucose before meals if blood glucose is <180 0 units, glucose 180-220 7 units, glucose >220 14 units If you experience low blood sugar, treat this by eating a chewable fruit candy like skittles or jelly beans (about 8 pieces), 4 ounces (1/2 cup) of fruit juice (not diet), 1 tablespoon of honey or 4 glucose tablets. If your blood sugar is under 50, take double the amount of one of the above. Recheck your blood sugar in 15 minutes. Medicamentos para la diabetes: Ozempic 2 mg semanal, Tresiba 85 unidades por la ma?amish, Jardiance 10 mg, Admelog glucosa antes de las comidas si la glucemia es <180: 0 unidades, glucosa 180-220: 7 unidades, glucosa >220: 14 unidades. Si experimenta un nivel bajo de az?car en la lev, tr?telo con un caramelo masticable de fruta asha Skittles o gominolas (aproximadamente 8 piezas), 113 ml (1/2 taza) de jugo de fruta (no diet?bonny), 1 cucharada de miel o 4 tabletas de glucosa. Si alva glucemia es inferior a 50, tome el doble de la cantidad de marina de los medicamentos mencionados. Vuelva a medir alva glucemia en 15 minutos. Coding Level of Care Code Est Pt Level 4 (61175) Complex EM visit Add On G2211 Diagnoses Diabetic nephropathy associated with type 2 diabetes mellitus E11.21 Controlled type 2 diabetes mellitus E11.9 Primary hypertension I10 Hypertension type: primary hypertension Dyslipidemia E78.5 Thyroid nodule E04.1 Left foot pain M79.672
[2025-08-16 11:26] VITALS: BP 112/62; PULSE 87; O2SAT 97; BMI 33.4
[2025-08-16 11:36] LABS: Glucose, Whole Blood 157 mg/dL (60-115)
--- OUTSIDE RECORDS SUMMARY | 2025-08-16 14:07 | XMS_ITS | Encounter Summary ---
Author Organization [employer] Address [address] [facility] 7t [place] [address] Care Team Providers Care Office Rep Name Role Phone Name, Gopi MORRIS Primary Care Provider [phone] Reason for Visit * Reason Comments Med Change Request Encounter Details Date Type Department Care Team ([facility] Contact Info) Description 10/05/[address] [facility] [address] [place] [address] Johana Garibay, ANP [address] [place] [address] Acute bacterial conjunctivitis of both eyes Social [...] Care Team (Late st Contact Info) Description 11/04/2025 2:30 PM EST Office Visit [facility] [address] [place] [address] Name, MD Gopi [address] [place] [address] documented as of this encounter Visit Diagnoses Diagnosis Acute bacterial conjunctivitis of both eyes documented in this encounter Care Teams Office Rep Relationship Specialty Start Date End Date Name, MD Gopi [address] [place] [id number] PCP - General Family Medicine 02/04/16 [facility] 05/31/22 documented as of this encounter
--- OUTSIDE RECORDS SUMMARY | 2025-08-16 14:07 | XMS_ITS | Encounter Summary ---
Author Organization [employer] Address [address] [facility] 7t [place] [address] Care Team Providers Care Java Websphere Developer Name Role Phone Name, Gopi MORRIS Primary Care Provider [phone] Encounter Details Date Type Department Care Team ([facility] Contact Info) Description 08/16/2025 Orders Only GENERIC EXTERNAL DATA DEPARTMENT Provider, [...] with others, in a hotel, in a senior living, living outside on the street, on a [...] t he electric, gas, oil or water [employer] threatened to shut off services in your [...] Description 11/04/2025 2:30 PM EST Office Visit [facility] [address] [place] [address] Name, MD Gopi [address] [place] [address] documented as of this encounter Procedures Procedure Name Priority Date/Time Associated Diagnosis Comments GLUCOSE, WHOLE BLOOD Routine 08/16/2025 11:32 AM EDT documented in this encounter Results * (ABNORMAL) Glucose, Whole Blood (08/16/2025 11:32 AM EDT) Glucose, Whole Blood 157(H) 60 - 115 mg/dL [facility] Comment:METER #: [id number] 0Testing performed in the Endocrinology Department [address] , [address], [facility]. 08/16/2025 11:3 2 AM EDT 08/16/2025 11:36 AM EDT us Generic External Data Provider LAB BLOOD ORDERAB LES Final Result [facility] [address] [place] [address] [phone] documented in this encounter Visit Diagnoses Not on filedocumented in this encounter Additional Health Concerns Assessment Noted Time PHQ-9 Depression Total Score: 0 12/27/19 24 11:17 AM EST documented as of this encounter Care Teams Java Websphere Developer Relationship Specialty Start Date End Date Name, MD Gopi [address] [place] [address] PCP - General Family Medicine 02/04/16 [facility] 05/31/22 documented as of this encounter
--- OUTSIDE RECORDS SUMMARY | 2025-08-16 14:07 | XMS_ITS | Encounter Summary ---
Author Organization [employer] [facility] Address [address] [place] [address] 7 [place] [address] Care Team Providers Care Crew Foreman Name Role Phone Name, Gopi MORRIS Primary Care Provider [phone] Encounter Details Date Type Department Care Team ([facility] Contact Info) Description 03/31/2023 Abstract [facility] [address] [place] [address] [phone] Gopi Jackson MD [address] [place] [address] [phone] Social History Tobacco Use Types Packs/Day Years [...] Description 11/04/2025 2:30 PM EST Office Visit [facility] [address] [place] [address] [phone] NameGopi MD [address] [place] [address] [phone] documented as of this encounter Procedures Procedure [...] on filedocumented in this encounter Care Teams Crew Foreman Relationship Specialty Start Date End Date Name, MD Gopi [address] [place] [address] PCP - General Family Medicine 02/04/16 [facility] 05/31/22 documented as of this encounter
--- OUTSIDE RECORDS SUMMARY | 2025-08-16 14:07 | XMS_ITS | Encounter Summary ---
Author Organization [employer] Address [address] [place] [address] 7t [place] [address] Care Team Providers Care Central Office Equipment Engineer Name Role Phone Name, Gopi MORRIS Primary Care Provider [phone] Reason for Visit * Reason Onset Date Comments Referral 07/24/2025 Encounter Details Date Type Department Care Team ([facility] Contact Info) Description 07/24/2025 Telephone [facility] [address] [place], [place] [phone] Name, MD Gopi [address] [place] [address] Referral Social History Tobacco Use Types Packs/Day Years [...] with others, in a hotel, in a longterm, living outside on the street, on a [...] encounter Miscellaneous Notes * Telephone Encounter - Chantell Darling RN - 07/24/2025 3:59 PM EDT Incoming TC from pt. S ammonium hydroxide operator (Zachariah ID#[id number]) used. Pt reports they have been dealing with arthritis pain in their neck for 3 months. Pt requesting a referral for orthopedics so they are ableto have evaluation and get injections. Pt reports approximately a week ago their pain increased. Ptdenies any injury. Pt reports constant pain in neck. Pt reports they were taking tylenol, but it wasn't working. Pt reports they are using the lidocaine patches with no relief. Pt requesting medication for pain until they are able to be seen for referral. Advised pt to come to [facility] for evaluation due to 10/10 pain with no further injury. Pt states they went to [facility] and they did some XRAY's but did not do anything for her. Advised pt importance of another evaluation due to the increased pain x 1 week with no injury. Pt reports they just want a referral to orthopedics so they are able to get their injections again. Advised pt for third attempt to come to [facility] for evaluation. Advised pt message to be sent to PCP for review of referral request for orthopedics and medication request. Pt verbalized understanding and denies questions at this time. * Telephone Encounter - Kasey Cj - 07/24/2025 10:24 AM EDT Tc from pt requesting a referral for an orthopedic Contact pt at [phone] (vietnamese) documented in this encounter Plan of Treatment Upcoming Encounters Date Type Department Care Team (Late st Contact Info) Description 11/04/2025 2:30 PM EST Office Visit [facility] [address] [place] [phone] Name, MD Gopi [address] [place] [address] documented as of this encounter Visit Diagnoses Not on filedocumented in this encounter Additional Health Concerns Assessment Noted Time PHQ-9 Depression Total Score: 0 12/27/19 24 11:17 AM EST documented as of this encounter Care Teams Central Office Equipment Engineer Relationship Specialty Start Date End Date Name, MD Gopi [address] [place] [address] PCP - General Family Medicine 02/04/16 [facility] 05/31/22 documented as of this encounter
--- OUTSIDE RECORDS SUMMARY | 2025-08-16 14:07 | XMS_ITS | Encounter Summary ---
Author Organization [employer] Address [address] [facility] 7t [place] [address] Care Team Providers Care Operations Research Scientist Name Role Phone Name, Gopi MORRIS Primary Care Provider [phone] Reason for Visit * Reason Onset Date Comments nov recalls 08/15/2025 Encounter Details Date Type Department Care Team ([facility] Contact Info) Description 08/15/2025 Telephone [facility] [address] [place] [address] Rudi Charles MA nov recalls Social History Tobacco Use Types Packs/Day Years [...] with others, in a hotel, in a intermediate, living outside on the street, on a [...] encounter Miscellaneous Notes * Telephone Encounter - Rudi Charles MA - 08/15/2025 12:14 PM EDT Telephone call to patient to schedule the following recall: Visit type: Follow up Appointment notes: DM Patient agree to appointment on 11/04/25 at 2:30 PM with Name. documented in this encounter Plan of Treatment Upcoming Encounters Date Type Department Care Team (Late st Contact Info) Description 11/04/2025 2:30 PM EST Office Visit [facility] [address] [place] [phone] Name, MD Gopi [address] [place] [address] documented as of this encounter Visit Diagnoses Not on filedocumented in this encounter Additional Health Concerns Assessment Noted Time PHQ-9 Depression Total Score: 0 12/27/19 24 11:17 AM EST documented as of this encounter Care Teams Operations Research Scientist Relationship Specialty Start Date End Date NameGopi MD [address] [place] [phone] PCP - General Family Medicine 02/04/16 [facility] 8/1/22 documented as of this encounter
--- OUTSIDE RECORDS SUMMARY | 2025-08-16 14:07 | XMS_ITS | Encounter Summary ---
Author Organization [employer] Address [address] [facility] 7t [place] [address] Care Team Providers Care Baker Apprentice Name Role Phone Name, Gopi MORRIS Primary Care Provider [phone] Reason for Visit * Reason Onset Date Comments Appointment Request 11/13/2024 Encounter Details Date Type Department Care Team ([facility] Contact Info) Description 11/13/2024 Telephone [facility] [address] [place], [place] [phone] Name, MD Gopi [address] [place] [address] Appointment Request Social History Tobacco Use Types [...] Moody - 11/13/2024 2:55 PM EST Tc mleiza Rivera with [facility] requesting schedule f/u appt with pcp in regards peripheral neuropathy. [phone] documented in this encounter Plan of Treatment Upcoming Encounters Date Type Department Care Team (Late st Contact Info) Description 11/04/2025 2:30 PM EST Office Visit [facility] [address] [place] [address] Name, MD Gopi [address] [place] [address] documented as of this encounter Visit Diagnoses Not on filedocumented in this encounter Additional Health Concerns Assessment Noted Time PHQ-9 Depression Total Score: 0 12/27/19 24 11:17 AM EST documented as of this encounter Care Teams Baker Apprentice Relationship Specialty Start Date End Date Name, MD Gopi [address] [place] [address] PCP - General Family Medicine 02/04/16 [facility] 05/31/22 documented as of this encounter
--- OUTSIDE RECORDS SUMMARY | 2025-08-16 14:08 | XMS_ITS | Clinical Summary ---
Author Organization [employer] [facility] [place] [address] Care Team Providers Care Presales Engineer Name Role Phone Unavailable Primary Care Provider [...] Last Done Comments Breast Cancer Screening 1955 Colorectal Cancer Screening: Colonoscopy 1955 DTaP,Tdap,and Td Vaccines (1 - Tdap) 1973 Pneumococcal Vaccine: 50+ Ye ars (1 of 1 - PCV) 2004 Zoster Vaccines (1 of 2) 2004 Falls Risk Assessment 11/25/2023 Hepatitis C Screening 11/25/2023 Osteoporosis Screening (Bone Density Screening) 11/25/2023 Social Influencers of Health Screening 11/25/2023 Depression Screening 10/31/2024 COVID-19 Vaccine ( - 2023-2 5 season) 2025 Influenza Vaccine (#1) 2025 RSV Immunization Adult [...]
--- OUTSIDE RECORDS SUMMARY | 2025-08-16 14:08 | XMS_ITS | Patient Health Record ---
Author Organization [facility] Address [address] [place] [address] Care Team Providers Care Spot Checker Name Role Phone Name Gopi MORRIS Primary Care Provider UnavailMychal Elizabeth Jr Unavailable [phone] SHARONDA WEBBER Unavailable Unavailable Allergies Allergen [...] at 5:00 p.m. the day before the procedure; Duration: 1 day 08/24/2023 Active Nortriptyline HCl 75 MG 1 capsule Orally Once a day; Duration: 30 day(s) Active Lactulose 10 GM 1 packet Orally Once a day; Duration: 30 day(s) Active Ozempic (1 MG/DOSE) 2 MG/1.5ML 1 mg subcutaneous once a week Active NovoLOG FlexPen 100 UNIT/ML as directed Subcutaneous 30 units tid Active Tresiba FlexTouch 200 UNIT/ML as directed Subcutaneous Active Benztropine Mesylate 1 MG/ML 1 ml Injection Once a day; Duration: 30 day(s) Active Atorvastatin Calcium 20 MG 1 tablet Orally Once a day Active Letrozole 2.5 MG 1 tablet Orally Once a day Active fluPHENAZine Decanoate 25 MG/ML INJECT 2ML POR V?A INTRAMUSCULAR EVERY 3 WEEKS Injection; Duration: 42 Active MiraLax (colon prep) 8.3 ounce (238) grams mixed with Gatorade or Crystal Light orally begin at 5:00 p.m. the day before the procedure; Duration: 1 day 08/25/2023 Active Aspirin Low Dose 81 MG TOME ALINA TABLETA TODOS LOS D? Oral; Duration: 30 Active Dulcolax (colon prep) 5 MG take at 3:00 p.m and 7:00p.m. Orally two tablets twice a day for one day; Duration: 1 day 08/25/2023 Active Zolpidem Tartrate 5 MG 1 tablet under th e tongue and allow to dissolve at bedtime as needed Sublingual Once a day Active Lisinopril 10 MG 1 tablet Orally Once a day Active Omeprazole 20 MG 1 capsule 30 minutes before morning meal Orally Once a day; Duration: 30 day(s) Active Meloxicam 7.5 MG 1 tablet Orally Once a day; Duration: 30 day(s) Active Acetaminophen 500 MG 1 [...] Problem Status W/U Status Risk Notes Problem Colon cancer screening (057313177) Colon cancer screening (Z12.11) Active confirmed Problem Rectal bleeding (94476735) Rectal bleeding (K62.5) Active confirmed Problem Gastric polyp (27268211) Gastric polyp (K31.7) Active confirmed Problem Constipation (06550905) Constipation, unspecified constipation type (K59.00) Active confirmed Problem Diarrhea (41367962) Diarrhea, unspecified type (R19.7) Active confirmed Problem Cirrhosis - non-alcoholic (860824209) Cirrhosis of liver without ascites, unspecified hepatic cirrhosis type (K74.60) Active confirmed Problem Microscopic colitis (043055665) Microscopic colitis, unspecified microscopic colitis type (K52.839) [...] Date MEDICARE OF [place] [address] [place] [address] [id number] KAY CHAN Self - patient is the insured MEDICAID OF [employer] [address] [place] [address] [id number] KAY CHAN Self - patient is the [...]
--- OUTSIDE RECORDS SUMMARY | 2025-08-16 14:08 | XMS_ITS | Encounter Summary ---
Author Organization [employer] Address [address] [facility] 7[address] [place] [address] Care Team Providers Care Virtual Office Assistant Name Role Phone Name, Gopi MORRIS Primary Care Provider [phone] Reason for Visit * Reason Onset Date Comments FYI 02/01/2024 Encounter Details Date Type Department Care Team ([facility] Contact Info) Description 02/01/2024 Telephone [facility] [address] [place], [place] [phone] Name, MD Gopi [address] [place] [address] FYI Social History Tobacco Use Types Packs/Day [...] wanted to inform pt is traveling to [place] from 02/18 and returning on 03/05 and she is going to put services on hold during traveling. Son its going to be on charge of pt medications during traveling days. Any questions contact Nicole at [phone] documented in this encounter Plan of Treatment Upcoming Encounters Date Type Department Care Team (Late st Contact Info) Description 11/04/2025 2:30 PM EST Office Visit [facility] [address] [place] [address] Name, MD Gopi [address] [place] [address] documented as of this encounter Visit Diagnoses Not on filedocumented in this encounter Additional Health Concerns Assessment Noted Time PHQ-9 Depression Total Score: 0 12/27/19 24 11:17 AM EST documented as of this encounter Care Teams Virtual Office Assistant Relationship Specialty Start Date End Date Name, MD Gopi [address] [place] [address] PCP - General Family Medicine 02/04/16 [facility] 05/31/22 documented as of this encounter
--- OUTSIDE RECORDS SUMMARY | 2025-08-16 14:08 | XMS_ITS | Clinical Summary ---
Author Organization [employer] Address [address] [place] [address] 7t [place] [address] Care Team Providers Care Instrumentation And Controls Designer Name Role Phone Name, Gopi MORRIS Primary Care Provider Allergies Active Allergy Reactions Criticality Noted Date [...] FOR PAIN 100 g 02/03/20 23 Active albuterol 108 (90 Base) MCG/ACT inhalerIndications :COVID-19 virus infection Inhale 2 puffs every 6 (six) hours if needed for wheezing. 18 g 11 12/20/19 24 Active insulin aspart (NovoLOG FLEXPEN) 100 UNIT/ML pen Inject 20 Units under the skin before breakfast, before lunch, and before evening meal. 03/23/20 Active Blood Pressure kit Use twice a day at home 1 kit 03/23/20 Active Lancet Devices (Autolet) lancing deviceIndications: Type 2 diabetes mellitus with hyperosmolarity without coma, without long-term current use of insulin ([facility]) 1 each by Other route 3 times daily. 1 each 05/01/20 Active glucose blood (OneTouch Verio) test strip 1 each by Other route 3 times daily. 100 each 05/02/20 24 Active Lancets (OneTouch Delica Safety Lancing) miscIndications:Co ntrolled type 2 diabetes mellitus with other specified complication, unspecified whether management accounts manager insulin use Apply 1 each topically See administration instructions. USE TO TEST BLOOD SUGAR THREE TIMES A DAY. Dx:Controlled type 2 diabetes mellitus with other specified complication, unspecified whether care home insulin use ([facility]/HCC) 100 each 3 05/04/20 24 Active aspirin (Aspirin Low Dose) 81 MG EC tabletIndications: Hyperlipidemia, unspecified hyperlipidemia type TOME 1 TABLETA POR VIA ORAL TODOS LOS BARLOW 90 tablet 1 08/22/20 24 Active UltiCare Alcohol Swabs 70 % padsIndications:Ty pe 2 diabetes mellitus with other specified complication, unspecified whether management accounts manager insulin use ([facility]) USE 1 PAD BY TOPICAL ROUTE 4 TIMES EVERY DAY 100 each 11/22/19 25 Active loratadine (Claritin) 10 MG tablet Take 1 tablet (10 mg) by mouth Once per day. 30 tablet 12/18/19 25 2025 Active FREESTYLE LITE test stripIndications:C ontrolled type 2 diabetes mellitus with other specified complication, unspecified whether care home insulin use,Insulin dependent type 2 diabetes mellitus (HCC) Use to test blood sugar 3 times daily 100 each 12 12/18/19 25 2025 Active Lancets miscIndications:Co ntrolled type 2 diabetes mellitus with other specified complication, unspecified whether care home insulin use,Insulin dependent type 2 diabetes mellitus (HCC) Use to test blood sugar 3 times daily 100 each 12/18/19 25 Active Tresiba FlexTouch 200 UNIT/ML injection INJECT 85 UNITS UNDER THE SKIN AT BEDTIME. (PER DR NAME 9 mL 12 12/24/19 25 Active Glycerin-Hypromell ose-PEG 400 (Artificial Tears) 0.2-0.2-1 % solution PLACE 2-3 DROPS INTO BOTH EYES 3 TIMES DAILY NEEDED 15 mL 3 12/28/19 25 Active BD Pen Needle Edilia 2nd Gen 32G X 4 MM miscIndications:Co ntrolled type 2 diabetes mellitus with other specified complication, unspecified whether care home insulin use USE 5 TIMES A DAY WITH INSULINS 100 each 5 01/19/20 25 Active omeprazole (PriLOSEC) [address] capsuleIndications :Heartburn TAKE 1 CAPSULE BY MOUTH EVERY DAY BEFORE BREAKFAST 90 capsule 1 06/17/20 25 Active tiZANidine (Zanaflex) 2 MG tabletIndications: Cervicalgia Take 1 tablet (2 mg) by mouth every 8 (eight) hours if needed for muscle spasms for up to 10 days. 30 tablet 06/26/20 25 Active Acetaminophen Extra Strength 500 MG tabletIndications: Cervicalgia TAKE 1 TABLET BY MOUTH EVERY 8 HOURS IF NEEDED FOR MODERATE PAIN. 30 tablet 1 06/26/20 25 Active atorvastatin (Lipitor) 20 MG tabletIndications: Hyperlipidemia, unspecified hyperlipidemia type TAKE 1 TABLET BY MOUTH EVERY DAY 90 tablet 1 06/28/20 25 Active lisinopril 10 MG tabletIndications: Hypertension, unspecified type TAKE 1 TABLET BY MOUTH EVERY DAY 90 tablet 1 06/28/20 25 Active lidocaine (Lidoderm) 5 % patchIndications:C ervicalgia APPLY 1 PATCH TOPICALLY ONCE PER DAY. REMOVE AND DISCARD PATCH WITHIN 12 HOURS OR DIRECTED BY MD. 30 patch 07/15/20 25 Active cyclobenzaprine (Flexeril) 5 MG tabletIndications: Cervicalgia Take 1 tablet (5 mg) by mouth if needed in the morning, at noon, and at bedtime for muscle spasms for up to 5 days. 15 tablet 07/24/20 25 Active meloxicam (Mobic) 7.5 MG tablet Take 1 tablet (7.5 mg) by mouth Once per day for 15 days. 15 tablet 07/24/20 25 2024 Active Problems Problem Noted Date Diagnosed Date Cervicalgia 06/26/2025 Assessment & Plan (06/26/2025 9:39 AM EDT): Chronic issue, associated muscle spasm Referrals to physical therapy, x-ray ordered Acetaminophen and zanaflex 2 mg prescribed. Caution regarding impact of msk relaxor, Pt declines diclofenac Lidocaine patch also sent Constipation 04/23/2025 Microscopic colitis 04/23/2025 Rectal bleeding 04/23/2025 Diarrhea 04/23/2025 Colon cancer screening 04/23/2025 Cirrhosis of liver without ascites 04/23/2025 Schizophrenia 12/18/2024 Hypertension 08/29/2023 Pain of right [...] F/up 4 to 6 weeks. Non-alcoholic cirrhosis (CMS/HCC) 12/14/2022 Gastric polyp 07/29/2021 Lobular carcinoma of left breast (CMS/HCC) 02/06 Low serum vitamin D 09/06/2017 History of cholecystectomy 07/14/2016 Diabetic polyneuropathy 03/08/2016 Heartburn 03/08/2016 Anemia 07/24/2012 Depressive disorder 03/22/2012 Hyperlipidemia 03/22/2012 Type 2 diabetes mellitus 03/22/2012 Resolved Problems Problem Noted Date Diagnosed Date Resolved Date Healthcare maintenance 12/14/202212/27 Diarrhea 09/22/2022 12/27/2023 Malignant tumor of breast 02/02/2019 Neck pain 09/06/2017 12/27/2023 Abscess of breast 01/24/2017 12/27/2023 Encounters Date Type Department Care Team Description 08/16/2025 Orders Only GENERIC EXTERNAL DATA DEPARTMENT Provider, Generic External Data 08/15/2025 Telephone [facility] [address] [place] [phone] Rudi Charles MA nov recalls 07/24/2025 5:40 PM EDT Office Visit [facility] [address] [address] Eulalio Barbosa MD Cervicalgia (Primary Dx) 07/24/2025 Travel 07/24/[address] [address] Gopi Jackson MD Referral 07/15/[address] [address] Gopi Jackson MD Cervicalgia 07/05/[address] [address] Gopi Jackson MD Nurse Triage 07/04/[address] [address] Gopi Jackson MD Referral 07/03/[address] [address] Gopi Jackson MD Prior Authorization 06/28/2025 Refill [facility] [address] [place] [address] Gopi Jackson MD Hyperlipidemia, unspecified hyperlipidemia type; Hypertension, unspecified type 06/27/2025 Results Follow-Up [facility] [address] [address] Alix Rodríguez RN XR CERVICAL SPINE 3V 06/26/2025 9:00 AM EDT Office Visit [facility] [address] [address] Tamanna Lopez NP Cervicalgia (Primary Dx); Pain of right hip; Right hip pain 06/26/2025 Travel 06/15/2025 Refill [facility] [address] [place] [address] Gopi Jackson MD Heartburn from Last 3 Months Immunizations Immunization Administration Dates Next Due Influenza High-dose Quadrivalent Preservative Fr ee 08/29/2023 Influenza injectable quadrivalent preservative f ree 12/14/2022 Influenza, IIV3, injectable 08/19/2023, 0 Heydi SARS-CoV-2 Vaccination 01/21/2021 Pfizer Covid-19 Vaccine [...] with others, in a hotel, in a residential, living outside on the street, on a [...] Sign Reading Time Taken Comments Blood Pressure 142/70 07/24/2025 5:37 PM EDT Pulse 96 07/24/2025 5:37 PM EDT Temperature 37 C (98.6 F) 07/24/2025 5:37 PM EDT Respiratory Rate 21 07/24/2025 5:37 PM EDT Oxygen Saturation 99% 07/24/2025 5:37 PM EDT Inhaled Oxygen Concentration - - Weight 83.7 kg (184 lb 9.6 oz) 07/24/2025 5:37 P M EDT Height 157.5 cm (5' 2 ) 07/24/2025 5:37 PM EDT Body Mass Index 33.76 07/24/2025 5:37 PM EDT Plan of Treatment Upcoming Encounters Date Type Department Care Team (Late st Contact Info) Description 11/04/2025 2:30 PM EST Office Visit [facility] [address] [place] [address] Name, MD Gopi [address] [place] [address] Health Maintenance Due Date Last Done Comments [...] - Risk 60-74 years 1-dose series) 2014 Diabetes: Foot Exam 08/29/2024 08/29/2023, 08/29/2023, 08/29/2023, Additional history exists Depression Screening 12/27/2024 12/27/2023, 12/27/19 24 COVID-19 Vaccine ( season) 2025 08/30/2022, 10/08/2021, 01/21/2021 Influenza Vaccine (#1) 2025 , 08/19/2023, 12/14/2022, Additional history exists Diabetes: Hemoglobin A1C 08/16/2025 025, 12/18/2024, 07/19/2024, Additional history exists Eye Exam 10/11/2025 10/11/2023 Alcohol/Substance Use Screening 10/12/2025 10/12/2024 Diabetes: Urine Protein Screening 02/14/2026 02/14/2025, 07/19/2024, 01/27/2024, Additional history exists Lipid Panel 02/14/2026 02/14/2025, 12/30, 11/17/2023, Additional history exists Mammogram 03/11/2026 03/11/2025, 04, 01/26/2023, Additional history exists SDOH Screening 04/24/2026 04/24/2025 Tobacco Screening 07/24/2026 07/24/2025 DTaP/Tdap/Td Vaccines (2 - Td or Tdap) [...] WHOLE BLOOD Routine 08/16/2025 11:32 AM EDT XR CERVICAL SPINE 3V Routine 06/26/2025 9:07 AM EDT Cervicalgia BI MAMMOGRAM SCREENING TOMOSYNTHESIS BILATERAL Routine 03/11/2025 11:05 AM EDT HEMOGLOBIN A1C Routine 02/14/2025 9:58 AM EDT LIPID PANEL, STANDARD Routine 02/14/2025 9:58 AM EDT ALBUMIN, RANDOM URINE W/CREATININE Routine 02/14/2025 9:55 AM EDT HM COLONOSCOPY Routine 03/12/2020 3:02 PM EDT from Last 3 Months or Most Recently Relevant to Health Maintenance Results * (ABNORMAL) Glucose, Whole Blood (08/16/2025 11:32 AM EDT) Glucose, Whole Blood 157(H) 60 - 115 mg/dL [facility] Comment:METER #: [id number] 0Testing performed in the Endocrinology Department [address] , [address], [facility]. 08/16/2025 11:3 2 AM EDT 08/16/2025 11:36 AM EDT us Generic External Data Provider LAB BLOOD ORDERAB LES Final Result Performing Organization Address City/State/[facility] Co de Phone Number [facility] [address] [place] [phone] * XR CERVICAL SPINE 3V (06/26/2025 9:07 AM EDT) Anatomical Region Laterality Modality Abdomen Radiographic Edith ging 06/26/2025 9:07 AM EDT Narrative 06/26/2025 10:48 AM EDT [address] [address] XRay Report Signed Patient: Priscila Mariscal MR#: [id number] : 1955 Acct:[id number] Age/Sex: 69 / F ADM Date: 06/26/25 Loc: [facility] Attending Dr: Tamanna Lopez SENIOR TECHNICAL SUPPORT ANALYST Ordering Physician: Tamanna Lopez SENIOR TECHNICAL SUPPORT ANALYST Date of Service: 06/26/25 Procedure(s): XR cervical spine 3V Accession Number(s): [id number] cc: Tamanna Lopez SENIOR TECHNICAL SUPPORT ANALYST EXAM: Three-view cervical spine x-ray TECHNIQUE: AP, lateral, AP open-mouth odontoid view INDICATION: pt with cervicalgia hx of lobular cancer PRIOR: September 07, 2017 FINDINGS: There is straightening of the cervical lordosis. There is no prevertebral soft tissue swelling. C2-3 demonstrates mild disc space narrowing. C4-5 demonstrates subtle retrolisthesis and mild disc space narrowing endplate osteophytes. C5-6 demonstrates mild to moderate disc space narrowing with endplate osteophytes. C6-7 demonstrates mild disc space narrowing. XR/XR cervical spine 3V IMPRESSION: There is straightening of the expected cervical lordosis. This can be idiopathic, but can also be related to degenerative change, muscle spasm, or posterior soft tissue injury. Moderate degenerative disc disease. Electronically signed by: Vito Silva MD 06/26/2025 10:45 AM EDT Dictated By: Vito Silva MD Signed By: <Electronically signed by Vito Silva MD in OV> 06/26/25 1045 DD/ 0907 TD/TT: 06/26/25 0910 Policy Officer: Procedure Note Donotuseinterpreter, Image - 06/26/[address] [address] XRay Report Signed Patient: Mela Mariscal#: [id number] : 1955cct:[id number] Age/Sex: 69 / FADM Date: 06/26/25 Loc: [facility] Attending Dr: Tamanna Lopez SENIOR TECHNICAL SUPPORT ANALYST Ordering Physician: Graef,Tamanna B SENIOR TECHNICAL SUPPORT ANALYST Date of Service: 06/26/25 Procedure(s): XR cervical spine 3V Accession Number(s): [id number] cc: Tamanna Lopez SENIOR TECHNICAL SUPPORT ANALYST EXAM: Three-view cervical spine x-ray TECHNIQUE: AP, lateral, AP open-mouth odontoid view INDICATION: pt with cervicalgia hx of lobular cancer PRIOR: September 07, 2017 FINDINGS: There is straightening of the cervical lordosis. There is no prevertebral soft tissue swelling. C2-3 demonstrates mild disc space narrowing. C4-5 demonstrates subtle retrolisthesis and mild disc space narrowing endplate osteophytes. C5-6 demonstrates mild to moderate disc space narrowing with endplate osteophytes. C6-7 demonstrates mild disc space narrowing. XR/XR cervical spine 3V IMPRESSION: There is straightening of the expected cervical lordosis. This can be idiopathic, but can also be related to degenerative change, muscle spasm, or posterior soft tissue injury. Moderate degenerative disc disease. Electronically signed by: Vito Silva MD 06/26/2025 10:45 AM EDT Dictated By: Vito Silva MD Signed By: <Electronically signed by Vito Silva MD in OV> 06/26/25 1045 DD/ 0907 TD/TT: 06/26/25 0910 Policy Officer: Tamanna Lopez SENIOR TECHNICAL SUPPORT ANALYST IMG XR PROCEDURES Edited Result - Final * BI Mammogram Screening Tomosynthesis Bilateral (03/11/2025 11:05 AM EDT) Anatomical Region Laterality Modality Breast Bilateral Mammography 03/11/2025 11:0 5 AM EDT Narrative 03/17/2025 5:27 PM EDT [facility] [address] [place], [place] [address] Mammography Report Signed Patient: Priscila Mariscal MR#: [id number] : 1955 Acct:[id number] Age/Sex: 69 / F ADM Date: 03/11/25 Loc: HO.MAMMO Attending Dr: Gopi Jackson MD Ordering Physician: Gopi Jackson MD Results: 2Benign Fi ndings Date of Service: 03/11/25 Follow Up: 1 Year From Orig inal Mammogram Procedure(s): MM tomosynthesis screening BI Accession Number(s): [id number] cc: Laya Christianson; NameGopi MD EXAMINATION: MM SCREENING DIGITAL BREAST TOMOSYNTHESIS, BILATERAL CLINICAL INFORMATION: Screening. Asymptomatic. COMPARISON: Mammography: Comparison is made with available priors TECHNIQUE: Digital breast mammography with tomosynthesis is performed in both the craniocaudal and mediolateral oblique views along with computer-aided detection (CAD). FINDINGS: There are scattered areas of fibroglandular density (ACR BI-RADS breast composition Category b). Left marker clips. Left post lumpectomy changes are stable. Bilateral dystrophic calcifications are stable. There are no significant masses, abnormal calcifications, or other abnormalities. MM/MM tomosynthesis screening BI IMPRESSION: No mammographic evidence of malignancy. ASSESSMENT: BI-RADS BI-RADS 2 - Benign Findings RECOMMENDATION: Routine annual mammography screening. 1 year F/U This examination should not preclude the clinical evaluation of a suspicious palpable abnormality. This patient's information was entered into a reminder system with a target due date for their next mammogram. Electronically signed by: Daniela Benson DO 03/17/2025 05:23 PM EDT Dictated By: Daniela Benson DO Signed By: <Electronically signed by Daniela Benson DO in OV> 03/17/25 1723 DD/ 1105 TD/TT: 03/11/25 1130 Policy Officer: Procedure Note Donotuseinterpreter, Image - 03/18/2025 [facility] [address] [place] [address] Mammography Report Signed Patient: Shaista MariscalR#: [id number] : 4Acct:[id number] Age/Sex: 69 / FADM Date: 03/11/25 Loc: HO.MAMMO Attending Dr: Gopi Jackson MD Ordering Physician: Gopi Jacksonesults: 2Benign Fi ndings Date of Service: 03/11/25Follow Up: 1 Year From Orig inal Mammogram Procedure(s): MM tomosynthesis screening BI Accession Number(s): [id number] cc: Laya Christianson; Name,Gopi MORRIS EXAMINATION: MM SCREENING DIGITAL BREAST TOMOSYNTHESIS, BILATERAL CLINICAL INFORMATION: Screening. Asymptomatic. COMPARISON: Mammography: Comparison is made with available priors TECHNIQUE: Digital breast mammography with tomosynthesis is performed in both the craniocaudal and mediolateral oblique views along with computer-aided detection (CAD). FINDINGS: There are scattered areas of fibroglandular density (ACR BI-RADS breast composition Category b). Left marker clips. Left post lumpectomy changes are stable. Bilateral dystrophic calcifications are stable. There are no significant masses, abnormal calcifications, or other abnormalities. MM/MM tomosynthesis screening BI IMPRESSION: No mammographic evidence of malignancy. ASSESSMENT: BI-RADS BI-RADS 2 - Benign Findings RECOMMENDATION: Routine annual mammography screening. 1 year F/U This examination should not preclude the clinical evaluation of a suspicious palpable abnormality. This patient's information was entered into a reminder system with a target due date for their next mammogram. Electronically signed by: Daniela Benson DO 03/17/2025 05:23 PM EDT Dictated By: Daniela Benson DO Signed By: <Electronically signed by Daniela Benson DO in OV> 03/17/25 1723 DD/ 1105 TD/TT: 03/11/25 1130 Policy Officer: Gopi Jackson MD [facility] BI PROCEDURES Edited Result - Final * (ABNORMAL) Hemoglobin A1c (02/14/2025 9:58 AM EDT) Hemoglobin A1c 6.6(H) <6.0 % [facility] Comment:Hemoglobin A1C Refer ence Range Adults: 4.8 - 6.0 % Non diabetic: < 6.0 % Goal: < 7.0 %Additional Action Suggested: > 8.0 %Note: Hemoglobin A1c results are invalid for patients with abnormal amounts of HbF. Blood transfusions may impact the HbA1c concentration in the patient sample. Estimated Average Glucose 143 mg/dL [facility] Comment:eAG = Estimated ave rage glucose which is %A1C expressed asaverage glucose, using the formula of the [id number]-[id number] Glucose study (ADAG), Diabetes Care, Vol.31,#8,May. 2007 02/14/2025 9:58 AM EDT 02/14/2025 9:58 AM EDT us Generic External Data Provider LAB BLOOD ORDERAB LES Final Result Performing Organization Address City/[facility]/ZIP Co de Phone Number [facility] [address] [place] [address] [phone] * Lipid Panel, Standard (02/14/2025 9:58 AM EDT) Triglycerides 104 <150 mg/dL [facility] Comment:Desirable Triglyceri de: less than 150 mg/dLBorderline High Triglyceride 150-199 mg/dLHigh Triglyceride: 200-499 mg/dLVery High Triglyceride: greater than or equal to 5OO mg/dL Cholesterol 133 <200 mg/dL [facility] Comment:Desirable Cholestero l: less than 200 mg/dLBorderline High Cholesterol: 200-239 mg/dLHigh Cholesterol: greater than 239 mg/dL LDL Cholesterol Calculated 56 <100 mg/dL [facility] Comment:Desirable LDL: less than 100 mg/dLNear Optimal/Above Optimal LDL: 110- 129 mg/dLBorderline High LDL: 130-159 mg/dLHigh LDL: 160-189 mg/dLVery High LDL: greater than or equal to 190 mg/dL HDL Cholesterol 57 >40 mg/dL [facility] Comment:Desirable HDL: great er than 40 mg/dL Note: This HDL assay may give artificially low results in patients with liver disease. 02/14/2025 9:58 AM EDT 02/14/2025 9:58 AM EDT us Generic External Data Provider LAB BLOOD ORDERAB LES Final Result [facility] [address] [place] [address] [phone] * Albumin, Random Urine W/Creatinine (02/14/2025 9:55 AM EDT) Creatinine, Urine 54.76 mg/dL [facility] Microalbumin Urine 6.0 mg/L [facility] Microalbum Creatinine Ratio Ur 10.9 <30 ug/mg cr [facility] Comment:Albumin/Creatinine R atio Reference Ranges: Normal: < 30 ug/mg creatinine Microalbuminuria: 30 - 300 ug/mg creatinineClinical Albuminuria: > 300 ug/mg creatinine 02/14/2025 9:55 AM EDT 02/14/2025 11:03 AM EDT Generic External Data Provider LAB URINE ORDERAB LES Final Result [facility] [address] [place] [phone] * Hm Colonoscopy (03/12/2020 3:02 PM EDT) Colonoscopy Normal Normal Narrative Eileen Delgado - 03/12/2020 3:02 PM EDT Recommended 10 year follow up ( ) Historical Provider HEALTH MAINTENANCE Final Result from Last 3 Months or Most Recently Relevant to Health [place] [address] [facility] [place] [place] [address] [place] [address] [place] [address] Care Teams Instrumentation And Controls Designer Relationship Specialty Start Date End Date Name, MD Gopi [address] [place] [phone] PCP - General Family Medicine 02/04/16 [facility] 05/31/22
== END 2025-08-16 12:00 | disposition home or self-care (01) ==
LOC: HO.ENCR 11:19
PROVIDERS: PCP Internal Medicine Geriatric Medicine; Visit Provider Physician Assistant Medical
DX: E11.21 Type 2 diabetes mellitus with diabetic nephropathy (principal); E11.65 Type 2 diabetes mellitus with hyperglycemia; I10 Essential (primary) hypertension; E78.5 Hyperlipidemia, unspecified; E04.1 Nontoxic single thyroid nodule; M79.672 Pain in left foot

== ENCOUNTER → 2025-08-16 11:18 | Outpatient (BNVA) | payer MEDICARE, MEDICAID, SELFPAY | PROVIDERS: PCP Internal Medicine Geriatric Medicine; Visit Provider Physician Assistant Medical | DX: E11.21 Type 2 diabetes mellitus with diabetic nephropathy (principal); E04.1 Nontoxic single thyroid nodule; I10 Essential (primary) hypertension; E78.5 Hyperlipidemia, unspecified; M79.672 Pain in left foot; Z87.891 Personal history of nicotine dependence; Z79.85 Long-term (current) use of injectable non-insulin antidiabetic drugs | CPT/HCPCS: 82947; 83036; 99212 ==

== ENCOUNTER → 2025-08-18 11:29 | Outpatient (BNV) | payer MEDICARE, MEDICAID, SELFPAY | PROVIDERS: PCP Internal Medicine Geriatric Medicine; Visit Provider Radiology Vascular & Interventional Radiology | DX: M48.02 Spinal stenosis, cervical region (principal); M50.322 Other cervical disc degeneration at C5-C6 level | CPT/HCPCS: 72141 ==

== ENCOUNTER 2025-08-18 11:30 | Outpatient (REF) | payer MEDICARE, MEDICAID, SELFPAY ==
--- NOTE | ~2025-08-18 | MR_ITS ---
CLINICAL HISTORY: neck pain MR cervical spine without gadolinium Comparison: None provided Findings: There is straightening of the normal cervical lordosis. There is mild diffuse disc space narrowing, disc desiccation and marginal osteophyte formation. 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 This narrows the central canal at these levels. No acute fracture or acute malalignment. The visualized portions of the posterior fossa are unremarkable. The spinal cord is normal in signal. Individual levels: C2-C3: Unremarkable. C3-C4: Small posterior disc osteophyte complex with mild left neural foraminal narrowing. No significant central canal stenosis. C4-C5: Posterior longitudinal ligamentous thickening at this level results in moderately severe central canal stenosis. There is mild bilateral neural foraminal narrowing. C5-C6: Moderate central canal stenosis and moderately severe bilateral neural foraminal narrowing. C6-C7: Posterior disc protrusion, small. This results in moderate bilateral neural foraminal narrowing. No central canal stenosis. C7-T1: Unremarkable. Impression: Degenerative changes as detailed with posterior longitudinal ligament thickening/ossification resulting in moderately severe central canal stenosis at C5-C6. This document has been electronically signed by: Александр Myrick MD on 08/20/2025 13:50:34
--- OUTSIDE RECORDS SUMMARY | 2025-08-18 11:35 | XMS_ITS | Encounter Summary ---
Author Organization [employer] Address [address] [facility] 7t [place] [address] Care Team Providers Care Materials Buyer Name Role Phone Name, Gopi MORRIS Primary Care Provider [phone] Reason for Visit * Reason Onset Date Comments FYI 02/01/2024 Encounter Details Date Type Department Care Team ([facility] Contact Info) Description 02/01/2024 Telephone [facility] [address] [place], [place] [phone] Name, MD Gopi [address] [place] [address] FYI Social History Tobacco Use Types Packs/Day [...] wanted to inform [place] is traveling to [place] from [place] and returning on 03/05 and she is going to put services on hold during traveling. Son its going to be on charge of pt medications during traveling days. Any questions contact Nicole at [phone] documented in this encounter Plan of Treatment Upcoming Encounters Date Type Department Care Team (Late st Contact Info) Description 11/04/2025 2:30 PM EST Office Visit [facility] [address] [place] [address] Name, MD Gopi [address] [place] [address] documented as of this encounter Visit Diagnoses Not on filedocumented in this encounter Additional Health Concerns Assessment Noted Time PHQ-9 Depression Total Score: 0 12/27/19 24 11:17 AM EST documented as of this encounter Care Teams Materials Buyer Relationship Specialty Start Date End Date Name, MD Gopi [address] [place] [address] PCP - General Family Medicine 02/04/16 [facility] 05/31/22 documented as of this encounter
--- OUTSIDE RECORDS SUMMARY | 2025-08-18 11:35 | XMS_ITS | Encounter Summary ---
Author Organization [employer] Address [address] [facility] 7t [place] [address] Care Team Providers Care Merchandise Supervisor Name Role Phone Name, Gopi MORRIS Primary Care Provider [phone] Reason for Visit * Reason Onset Date Comments nov recalls 08/15/2025 Encounter Details Date Type Department Care Team ([facility] Contact Info) Description 08/15/2025 Telephone [facility] [address] [place] [address] Rudi Charles MA nov recalls Social History [...] with others, in a hotel, in a usp, living outside on the street, on a [...] Description 11/04/2025 2:30 PM EST Office Visit [facility] [address] [place] [address] Name, MD Gopi [address] [place] [address] documented as of this encounter Visit Diagnoses Not on filedocumented in this encounter Additional Health Concerns Assessment Noted Time PHQ-9 Depression Total Score: 0 12/27/19 24 11:17 AM EST documented as of this encounter Care Teams Merchandise Supervisor Relationship Specialty Start Date End Date NameGopi MD [address] [place] [address] PCP - General Family Medicine 02/04/16 [facility] 8/1/22 documented as of this encounter
--- OUTSIDE RECORDS SUMMARY | 2025-08-18 11:35 | XMS_ITS | Encounter Summary ---
Author Organization [employer] Address [address] [place] [address] 7t [place] [address] Care Team Providers Care Counter Server Name Role Phone Name, Gopi MORRIS Primary Care Provider [phone] Reason for Visit * Reason Onset Date Comments Referral 07/24/2025 Encounter Details Date Type Department Care Team ([facility] Contact Info) Description 07/24/2025 Telephone [facility] [address] [place], [place] [phone] Name, MD Gopi [address] [place] [address] Referral Social History Tobacco Use Types Packs/Day [...] with others, in a hotel, in a halfway, living outside on the street, on a [...] PM EDT Incoming TC from pt. S sign language interpreter (Zachariah ID#[id number]) used. Pt reports they have been dealing [...] for referral. Advised pt to come to [facility] for evaluation due to 10/10 pain with no further injury. Pt states they went to [facility] and they did some XRAY's but did not do anything for her. Advised pt importance of another evaluation due to the increased pain x 1 week with no injury. Pt reports they just want a referral to orthopedics so they are able to get their injections again. Advised pt for third attempt to come to [facility] for evaluation. Advised pt message to be sent to PCP for review of referral request for orthopedics and medication request. Pt verbalized understanding and denies questions at this time. * Telephone Encounter - Kasey Cj - 07/24/2025 10:24 AM EDT Tc from pt requesting a referral for an orthopedic Contact pt at [phone] (greenlandic) documented in this encounter Plan of Treatment Upcoming Encounters Date Type Department Care Team (Late st Contact Info) Description 11/04/2025 2:30 PM EST Office Visit [facility] [address] [place] [phone] Name, MD Gopi [address] [place] [address] documented as of this encounter Visit Diagnoses Not on filedocumented in this encounter Additional Health Concerns Assessment Noted Time PHQ-9 Depression Total Score: 0 12/27/19 24 11:17 AM EST documented as of this encounter Care Teams Counter Server Relationship Specialty Start Date End Date Name, MD Gopi [address] [place] [address] PCP - General Family Medicine 02/04/16 [facility] 05/31/22 documented as of this encounter
--- OUTSIDE RECORDS SUMMARY | 2025-08-18 11:35 | XMS_ITS | Encounter Summary ---
Author Organization [employer] [facility] Address [address] [place] [address] 7 [place] [address] Care Team Providers Care Bankruptcy Paralegal Name Role Phone Name, Gopi MORRIS Primary Care Provider [phone] Encounter Details Date Type Department Care Team ([facility] Contact Info) Description 03/31/2023 Abstract [facility] [address] [place] [address] [phone] Gopi Jackson MD [address] [place] [address] [phone] Social History Tobacco Use Types Packs/Day Years [...] Description 11/04/2025 2:30 PM EST Office Visit [facility] [address] [place] [address] [phone] NameGopi MD [address] [place] [address] [phone] documented as of this encounter Procedures Procedure [...] on filedocumented in this encounter Care Teams Bankruptcy Paralegal Relationship Specialty Start Date End Date Name, MD Gopi [address] [place] [address] PCP - General Family Medicine 02/04/16 [facility] 05/31/22 documented as of this encounter
--- OUTSIDE RECORDS SUMMARY | 2025-08-18 11:35 | XMS_ITS | Clinical Summary ---
Author Organization [employer] Address [address] [place] [address] 7t [place] [address] Care Team Providers Care Carpet Installer Name Role Phone Name, Gopi MORRIS Primary [...] coma, without long-term current use of insulin ([facility]) 1 each by Other route 3 times daily. 1 each 05/01/20 Active glucose blood (OneTouch Verio) test strip 1 each by Other route 3 times daily. 100 each 05/02/20 24 Active Lancets (OneTouch Delica Safety Lancing) miscIndications:Co ntrolled type 2 diabetes mellitus with other specified complication, unspecified whether intermediate manager insulin use Apply 1 each topically See administration instructions. USE TO TEST BLOOD SUGAR THREE TIMES A DAY. Dx:Controlled type 2 diabetes mellitus with other specified complication, unspecified whether senior living insulin use ([facility]/HCC) 100 each 3 05/04/20 24 Active aspirin (Aspirin Low Dose) 81 MG EC tabletIndications: Hyperlipidemia, unspecified hyperlipidemia type TOME 1 TABLETA POR VIA ORAL TODOS [place] 90 tablet 1 08/22/20 24 Active UltiCare Alcohol Swabs 70 % padsIndications:Ty pe 2 diabetes mellitus with other specified complication, unspecified whether intermediate manager insulin use ([facility]) USE 1 PAD BY TOPICAL ROUTE 4 TIMES EVERY DAY 100 each 11/22/19 25 Active loratadine (Claritin) 10 MG tablet Take 1 tablet (10 mg) by mouth Once per day. 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) Use to test blood sugar 3 times daily 100 each 12 12/18/19 25 2025 Active Lancets miscIndications:Co ntrolled type 2 diabetes mellitus with other specified complication, unspecified whether senior living insulin use,Insulin dependent type 2 diabetes mellitus [...] mellitus with other specified complication, unspecified whether senior living insulin use USE 5 TIMES A DAY [...] DEPARTMENT Provider, Generic External Data 08/15/2025 Telephone [facility] [address] [place] [address] Rudi Charles MA nov recalls 07/24/2025 5:40 PM EDT [facility] [address] [address] Eulalio Barbosa MD Cervicalgia (Primary Dx) 07/24/2025 Travel 07/24/[address] [address] Gopi Jackson MD Referral 07/15/[address] [address] Gopi Jackson MD Cervicalgia 07/05/[address] [address] Gopi Jackson MD Nurse Triage 07/04/[address] [address] Gopi Jackson MD Referral 07/03/[address] [address] Gopi Jackson MD Prior Authorization 06/28/2025 Refill [facility] [address] [place] [address] Gopi Jackson MD Hyperlipidemia, unspecified hyperlipidemia type; Hypertension, unspecified type 06/27/2025 Results [facility] [address] [address] Alix Rodríguez RN XR CERVICAL SPINE 3V 06/26/2025 9:00 AM EDT [facility] [address] [address] Tamanna Lopez NP Cervicalgia (Primary Dx); Pain of right hip; Right hip pain 06/26/2025 Travel 06/15/2025 Refill [facility] [address] [place] [address] Gopi Jackson MD Heartburn from Last 3 [...] [facility] [address] [place] [address] Name, MD Gopi [address] [place] [address] Health Maintenance Due Date Last Done Comments [...] Whole Blood 157(H) 60 - 115 mg/dL [facility] Comment:METER #: [id number] 0Testing performed in the Endocrinology Department [address] , [address], [facility]. 08/16/2025 11:3 2 AM EDT 08/16/2025 11:36 AM EDT us Generic External Data Provider LAB BLOOD ORDERAB LES Final Result Performing Organization Address City/State/[facility] Co de Phone Number [facility] [address] [place] [address] [phone] * XR CERVICAL SPINE 3V (06/26/2025 9:07 AM EDT) Anatomical Region Laterality Modality Abdomen Radiographic Edith ging 06/26/2025 9:07 AM EDT Narrative 06/26/2025 10:48 AM EDT [address] [address] XRay Report Signed Patient: Priscila Mariscal MR#: [id number] : 1955 Acct:[id number] Age/Sex: 69 / F ADM Date: 06/26/25 Loc: NATAL[facility] Attending Dr: Tamanna Lopez PAYROLL AND BENEFITS SPECIALIST Ordering Physician: Tamanna Lopez PAYROLL AND BENEFITS SPECIALIST Date of Service: 06/26/25 Procedure(s): XR cervical spine 3V Accession Number(s): [id number] cc: Tamanna Lopez PAYROLL AND BENEFITS SPECIALIST EXAM: Three-view cervical spine x-ray TECHNIQUE: AP, [...] 06/26/25 1045 DD/ 0907 TD/TT: 06/26/25 0910 Certified Recreational Therapist: Procedure Note Donotuseinterpreter, Image - 06/26/[address] [address] XRay Report Signed Patient: Mela Mariscal#: [id number] : 1955cct:[id number] Age/Sex: 69 / FADM Date: 06/26/25 Loc: EMCX Attending Dr: Tamanna Lopez PAYROLL AND BENEFITS SPECIALIST Ordering Physician: Graef,Tamanna B PAYROLL AND BENEFITS SPECIALIST Date of Service: 06/26/25 Procedure(s): XR cervical spine 3V Accession Number(s): [id number] cc: Tamanna Lopez PAYROLL AND BENEFITS SPECIALIST EXAM: Three-view cervical spine x-ray TECHNIQUE: AP, [...] 06/26/25 1045 DD/ 0907 TD/TT: 06/26/25 0910 Certified Recreational Therapist: Tamanna Lopez PAYROLL AND BENEFITS SPECIALIST IMG XR PROCEDURES Edited Result - Final * BI Mammogram Screening Tomosynthesis Bilateral (03/11/2025 11:05 AM EDT) Anatomical Region Laterality Modality Breast Bilateral Mammography 03/11/2025 11:0 5 AM EDT Narrative 03/17/2025 5:27 PM EDT [facility] [address] [place], [place] [address] Mammography Report Signed Patient: Priscila Mariscal MR#: [id number] : 1955 Acct:[id number] Age/Sex: 69 / F ADM Date: 03/11/25 Loc: HO.MAMMO Attending Dr: Gopi Jackson MD Ordering Physician: Gopi Jackson MD Results: 2Benign Fi ndings Date of Service: 03/11/25 Follow Up: 1 Year From Orig inal Mammogram Procedure(s): MM tomosynthesis screening BI Accession Number(s): [id number] cc: Laya Christianson; NameGopi MD EXAMINATION: MM [...] 03/17/25 1723 DD/ 1105 TD/TT: 03/11/25 1130 Certified Recreational Therapist: Procedure Note Donotuseinterpreter, Image - 03/18/2025 [facility] [address] [place] [address] Mammography Report Signed Patient: Shaista MariscalR#: [id number] : 4Acct:[id number] Age/Sex: 69 / FADM Date: 03/11/25 Loc: HO.MAMMO Attending Dr: Gopi Jackson MD Ordering Physician: Gopi Jacksonesults: 2Benign Fi ndings Date of Service: 03/11/25Follow Up: 1 Year From Orig inal Mammogram Procedure(s): MM tomosynthesis screening BI Accession Number(s): [id number] cc: Laya Christianson; Name,Gopi MORRIS EXAMINATION: MM [...] 03/17/25 1723 DD/ 1105 TD/TT: 03/11/25 1130 Certified Recreational Therapist: Gopi Jackson MD [facility] BI PROCEDURES Edited Result - Final * (ABNORMAL) Hemoglobin A1c (02/14/2025 9:58 AM EDT) Hemoglobin A1c 6.6(H) <6.0 % [facility] Comment:Hemoglobin A1C Refer ence Range Adults: 4.8 - 6.0 % Non diabetic: < 6.0 % Goal: < 7.0 %Additional Action Suggested: > 8.0 %Note: Hemoglobin A1c results are invalid for patients with abnormal amounts of HbF. Blood transfusions may impact the HbA1c concentration in the patient sample. Estimated Average Glucose 143 mg/dL [facility] Comment:eAG = Estimated ave rage glucose which is %A1C expressed asaverage glucose, using the formula of the E0W-FwccjkiFtyfwvf Glucose study (ADAG), Diabetes Care, Vol.31,#8,May. 2007 02/14/2025 9:58 AM EDT 02/14/2025 9:58 AM EDT us Generic External Data Provider LAB BLOOD ORDERAB LES Final Result Performing Organization Address City/[facility]/ZIP Co de Phone Number [facility] [address] [place] [address] [phone] * Lipid Panel, Standard (02/14/2025 9:58 AM EDT) Triglycerides 104 <150 mg/dL [facility] Comment:Desirable Triglyceri de: less than 150 mg/dLBorderline High Triglyceride 150-199 mg/dLHigh Triglyceride: 200-499 mg/dLVery High Triglyceride: greater than or equal to 5OO mg/dL Cholesterol 133 <200 mg/dL [facility] Comment:Desirable Cholestero l: less than 200 mg/dLBorderline High Cholesterol: 200-239 mg/dLHigh Cholesterol: greater than 239 mg/dL LDL Cholesterol Calculated 56 <100 mg/dL [facility] Comment:Desirable LDL: less than 100 mg/dLNear Optimal/Above Optimal LDL: 110- 129 mg/dLBorderline High LDL: 130-159 mg/dLHigh LDL: 160-189 mg/dLVery High LDL: greater than or equal to 190 mg/dL HDL Cholesterol 57 >40 mg/dL [facility] Comment:Desirable HDL: great er than 40 mg/dL Note: This HDL assay may give artificially low results in patients with liver disease. 02/14/2025 9:58 AM EDT 02/14/2025 9:58 AM EDT us Generic External Data Provider LAB BLOOD ORDERAB LES Final Result [facility] [address] [place] [address] [phone] * Albumin, Random Urine W/Creatinine (02/14/2025 9:55 AM EDT) Creatinine, Urine 54.76 mg/dL [facility] Microalbumin Urine 6.0 mg/L [facility] Microalbum Creatinine Ratio Ur 10.9 <30 ug/mg cr [facility] Comment:Albumin/Creatinine R atio Reference Ranges: Normal: < 30 ug/mg creatinine Microalbuminuria: 30 - 300 ug/mg creatinineClinical Albuminuria: > 300 ug/mg creatinine 02/14/2025 9:55 AM EDT 02/14/2025 11:03 AM EDT Generic External Data Provider LAB URINE ORDERAB LES Final Result [facility] [address] [place] [address] [phone] * Hm Colonoscopy (03/12/2020 3:02 PM EDT) Colonoscopy Normal Normal Narrative Eileen Delgado - 03/12/2020 3:02 PM EDT Recommended 10 year follow up ( ) Historical Provider HEALTH MAINTENANCE Final Result from Last 3 Months or Most Recently Relevant to [place] [address] [facility] [place] [address] [place] [address] [place] [address] Care Teams Carpet Installer Relationship Specialty Start Date End Date Name, MD Gopi [address] [place] [address] PCP - General Family Medicine 02/04/16 [facility] 05/31/22
--- OUTSIDE RECORDS SUMMARY | 2025-08-18 11:35 | XMS_ITS | Clinical Summary ---
Author Organization [facility] [place] [address] Care Team Providers Care Sprinkling System Installer Name Role Phone Unavailable Primary Care Provider [...]
--- OUTSIDE RECORDS SUMMARY | 2025-08-18 11:35 | XMS_ITS | Encounter Summary ---
Author Organization [employer] Address [address] [facility] 7t [place] [address] Care Team Providers Care Rn Angiography Name Role Phone Name, Gopi MORRIS Primary Care Provider [phone] Reason for Visit * Reason Onset Date Comments Appointment Request 11/13/2024 Encounter Details Date Type Department Care Team ([facility] Contact Info) Description 11/13/2024 Telephone [facility] [address] [place], [place] [phone] Name, MD Gopi [address] [place] [address] Appointment Request Social History Tobacco Use Types [...] 2:55 PM EST Tc meliza Rivera with [facility] requesting schedule f/u appt with pcp in regards peripheral neuropathy. [phone] documented in this encounter Plan of Treatment Upcoming Encounters Date Type Department Care Team (Late st Contact Info) Description 11/04/2025 2:30 PM EST Office Visit [facility] [address] [place] [address] Name, MD Gopi [address] [place] [address] documented as of this encounter Visit Diagnoses Not on filedocumented in this encounter Additional Health Concerns Assessment Noted Time PHQ-9 Depression Total Score: 0 12/27/19 24 11:17 AM EST documented as of this encounter Care Teams Rn Angiography Relationship Specialty Start Date End Date Name, MD Gopi [address] [place] [address] PCP - General Family Medicine 02/04/16 [facility] 05/31/22 documented as of this encounter
--- OUTSIDE RECORDS SUMMARY | 2025-08-18 11:35 | XMS_ITS | Patient Health Record ---
Author Organization [facility] Address [address] [place] [address] Care Team Providers Care Blow Up Operator Name Role Phone Name Gopi MORRIS Primary Care Provider UnavailyMchal Elizabeth Jr Unavailable [phone] SHARONDA WEBBER Unavailable Unavailable Allergies Allergen [...] Status Risk Notes Problem Colon cancer screening (863200354) Colon cancer screening (Z12.11) Active confirmed Problem Rectal bleeding (55182391) Rectal bleeding (K62.5) Active confirmed Problem Gastric polyp (64782802) Gastric polyp (K31.7) Active confirmed Problem Constipation (53647647) Constipation, unspecified constipation type (K59.00) Active confirmed Problem Diarrhea (49548041) Diarrhea, unspecified type (R19.7) Active confirmed Problem Cirrhosis - non-alcoholic (295341750) Cirrhosis of liver without ascites, unspecified hepatic cirrhosis type (K74.60) Active confirmed Problem Microscopic colitis (829062460) Microscopic colitis, unspecified microscopic colitis type (K52.839) [...] OF [place] [address] [place] [address] [id number] KAY CHAN Self - patient is the insured MEDICAID OF [employer] [facility] [address] [place] [address] [id number] KAY CHAN Self - patient is the [...]
--- OUTSIDE RECORDS SUMMARY | 2025-08-18 11:35 | XMS_ITS | Encounter Summary ---
Author Organization [employer] Address [address] [facility] 7t [place] [address] Care Team Providers Care Cutter And Paster Press Clippings Name Role Phone Name, Gopi MORRIS Primary Care Provider [phone] Encounter Details Date Type Department Care Team ([facility] Contact Info) Description 08/16/2025 Orders Only GENERIC [...] t he electric, gas, oil or water [employer] threatened to shut off services in your [...] Description 11/04/2025 2:30 PM EST Office Visit [facility] [address] [place] [address] Name, MD Gopi [address] [place] [address] documented as of this encounter Procedures Procedure Name Priority Date/Time Associated Diagnosis Comments GLUCOSE, WHOLE BLOOD Routine 08/16/2025 11:32 AM EDT documented in this encounter Results * (ABNORMAL) Glucose, Whole Blood (08/16/2025 11:32 AM EDT) Glucose, Whole Blood 157(H) 60 - 115 mg/dL [facility] Comment:METER #: [id number] 0Testing performed in the Endocrinology Department [address] , [address], [facility]. 08/16/2025 11:3 2 AM EDT 08/16/2025 11:36 AM EDT us Generic External Data Provider LAB BLOOD ORDERAB LES Final Result [facility] [address] [place] [address] [phone] documented in this encounter Visit Diagnoses Not on filedocumented in this encounter Additional Health Concerns Assessment Noted Time PHQ-9 Depression Total Score: 0 12/27/19 24 11:17 AM EST documented as of this encounter Care Teams Cutter And Paster Press Clippings Relationship Specialty Start Date End Date Name, MD Gopi [address] [place] [address] PCP - General Family Medicine 02/04/16 [facility] 05/31/22 documented as of this encounter
--- OUTSIDE RECORDS SUMMARY | 2025-08-18 11:35 | XMS_ITS | Encounter Summary ---
Author Organization [employer] Address [address] [facility] 7t [place] [address] Care Team Providers Care Entry Level Sales Representative Name Role Phone Name, Gopi MORRIS Primary Care Provider [phone] Reason for Visit * Reason Comments Med Change Request Encounter Details Date Type Department Care Team ([facility] Contact Info) Description 10/05/2023 Refill [facility] [address] [place] [address] Johana Garibay, ANP [address] [place] [address] Acute bacterial conjunctivitis of both eyes Social [...] Description 11/04/2025 2:30 PM EST Office Visit [facility] [address] [place] [address] Name, MD Gopi [address] [place] [address] documented as of this encounter Visit Diagnoses Diagnosis Acute bacterial conjunctivitis of both eyes documented in this encounter Care Teams Entry Level Sales Representative Relationship Specialty Start Date End Date Name, MD Gopi [address] [place] [address] PCP - General Family Medicine 02/04/16 [facility] 05/31/22 documented as of this encounter
== END 2025-08-18 11:31 | disposition home or self-care (01) ==
LOC: HO.MRI 11:30
PROVIDERS: PCP Internal Medicine Geriatric Medicine; Visit Provider Internal Medicine
DX: M54.2 Cervicalgia (principal)
CPT/HCPCS: 72141

== ENCOUNTER 2025-08-21 10:12 | Outpatient (REF) | payer MEDICARE, MEDICAID, SELFPAY ==
[2025-08-21 11:42] LABS: Cholesterol 127 mg/dL (<200); Estimated Glomerular Filt Rate > 60; HDL Cholesterol 60 mg/dL (>40); Triglycerides 77 mg/dL (<150)
--- OUTSIDE RECORDS SUMMARY | 2025-08-21 12:32 | XMS_ITS | Encounter Summary ---
Author Organization [employer] Address [address] [facility] 7t [place] [address] Care Team Providers Care Back End Web Developer Name Role Phone Name, Gopi MORRIS Primary Care Provider [phone] Reason for Visit * Reason Onset Date Comments FYI 02/01/2024 Encounter Details Date Type Department Care Team ([facility] Contact Info) Description 02/01/2024 Telephone [facility] MEDICINE [address] [place], [place] [phone] Name, MD Gopi [address] [place] [address] FYI Social History Tobacco Use Types Packs/Day [...] wanted to inform pt is traveling to [place] from 02/18 and returning on 03/05 and she is going to put services on hold during traveling. Son its going to be on charge of pt medications during traveling days. Any questions contact Nicole at [phone] documented in this encounter Plan of Treatment Upcoming Encounters Date Type Department Care Team (Late st Contact Info) Description 11/04/2025 2:30 PM EST Office Visit [facility] MEDICINE [address] [place] [address] Name, MD Gopi [address] [place] [address] documented as of this encounter Visit Diagnoses Not on filedocumented in this encounter Additional Health Concerns Assessment Noted Time PHQ-9 Depression Total Score: 0 12/27/19 24 11:17 AM EST documented as of this encounter Care Teams Back End Web Developer Relationship Specialty Start Date End Date Name, MD Gopi [address] [place] [address] PCP - General Family Medicine 02/04/16 [facility] 05/31/22 documented as of this encounter
--- OUTSIDE RECORDS SUMMARY | 2025-08-21 12:32 | XMS_ITS | Encounter Summary ---
Author Organization [employer] Address [address] [facility] 7t [place] [address] Care Team Providers Care Orthotics Assistant Name Role Phone Name, Gopi MORRIS Primary Care Provider [phone] Reason for Visit * Reason Comments Med Change Request Encounter Details Date Type Department Care Team ([facility] Contact Info) Description 10/05/2023 Refill [facility] [address] [place] [address] Johana Garibay, ANP [address] [place] [address] Acute bacterial conjunctivitis of both eyes Social [...] Description 11/04/2025 2:30 PM EST Office Visit [facility] MEDICINE [address] [place] [address] Name, MD Gopi [address] [place] [phone] documented as of this encounter Visit Diagnoses Diagnosis Acute bacterial conjunctivitis of both eyes documented in this encounter Care Teams Orthotics Assistant Relationship Specialty Start Date End Date Name, MD Gopi [address] [place] [phone] PCP - General Family Medicine 02/04/16 [facility] 05/31/22 documented as of this encounter
--- OUTSIDE RECORDS SUMMARY | 2025-08-21 12:32 | XMS_ITS | Encounter Summary ---
Author Organization [employer] Address [address] [facility] 7t [place] [address] Care Team Providers Care Classified Copy Control Clerk Name Role Phone Name, Gopi MORRIS Primary Care Provider [phone] Encounter Details Date Type Department Care Team ([facility] Contact Info) Description 08/16/2025 Orders Only [...] with others, in a hotel, in a [place] [facility] [place], living outside on the street, on a [...] t he electric, gas, oil or water [employer] threatened to shut off services in your [...] 11/04/2025 2:30 PM EST Office Visit [facility] MEDICINE [address] [place] [phone] Name, MD Gopi [address] [place] [address] documented as of this encounter Procedures Procedure Name Priority Date/Time Associated Diagnosis Comments GLUCOSE, WHOLE BLOOD Routine 08/16/2025 11:32 AM EDT documented in this encounter Results * (ABNORMAL) Glucose, Whole Blood (08/16/2025 11:32 AM EDT) Glucose, Whole Blood 157(H) 60 - 115 mg/dL [facility] Comment:METER #: [id number] 0Testing performed in the Endocrinology Department [address] , [address], [facility]. 08/16/2025 11:3 2 AM EDT 08/16/2025 11:36 AM EDT us Generic External Data Provider LAB BLOOD ORDERAB LES Final Result [facility] [address] [place] [phone] [phone] documented in this encounter Visit Diagnoses Not on filedocumented in this encounter Additional Health Concerns Assessment Noted Time PHQ-9 Depression Total Score: 0 12/27/19 24 11:17 AM EST documented as of this encounter Care Teams Classified Copy Control Clerk Relationship Specialty Start Date End Date Name, MD Gopi [address] [place] [address] PCP - General Family Medicine 02/04/16 [facility] 05/31/22 documented as of this encounter
--- OUTSIDE RECORDS SUMMARY | 2025-08-21 12:32 | XMS_ITS | Encounter Summary ---
Author Organization [employer] [facility] Address [address] [place] [address] 7 [place] [address] Care Team Providers Care Sustainable Communities Designer Name Role Phone Name, Gopi MORRIS Primary Care Provider [phone] Encounter Details Date Type Department Care Team ([facility] Contact Info) Description 03/31/2023 Abstract [facility] MEDICINE [address] [place] [address] [phone] Gopi Jackson MD [address] [place] [address] [phone] Social History Tobacco Use Types Packs/Day Years [...] Encounters Date Type Department Care Team (Late Contact Info) Description 11/04/2025 2:30 PM EST Office Visit [facility] MEDICINE [address] [place] [address] [phone] NameGopi MD [address] [place] [address] [phone] documented as of this encounter Procedures Procedure [...] on filedocumented in this encounter Care Teams Sustainable Communities Designer Relationship Specialty Start Date End Date Name, MD Gopi [address] [place] [address] PCP - General Family Medicine 02/04/16 [facility] 05/31/22 documented as of this encounter
--- OUTSIDE RECORDS SUMMARY | 2025-08-21 12:32 | XMS_ITS | Clinical Summary ---
Author Organization [employer] [facility] [place] [address] Care Team Providers Care Bricklayer'S Assistant Name Role Phone Unavailable Primary Care Provider [...]
--- OUTSIDE RECORDS SUMMARY | 2025-08-21 12:32 | XMS_ITS | Encounter Summary ---
Author Organization [employer] Address [address] [facility] 7t [place] [address] Care Team Providers Care Intake Rn Name Role Phone Name, Gopi MORRIS Primary Care Provider [phone] Encounter Details Date Type Department Care Team ([facility] Contact Info) Description 08/21/2025 Orders Only GENERIC EXTERNAL DATA DEPARTMENT Provider, [...] with others, in a hotel, in a correction, living outside on the street, on a [...] t he electric, gas, oil or water [employer] threatened to shut off services in your [...] Description 11/04/2025 2:30 PM EST Office Visit [facility] MEDICINE [address] [place], [place] [phone] Name, MD Gopi [address] [place] [address] documented as of this encounter Procedures Procedure Name Priority Date/Time Associated Diagnosis Comments TSH W/REFLEX TO FT4 Routine 08/21/2025 1 0:30 AM EDT CREATININE, SERUM Routine 08/21/2025 10: 30 AM EDT HEMOGLOBIN A1C Routine 08/21/2025 10:30 AM EDT LIPID PANEL, STANDARD Routine 08/21/2025 10:30 AM EDT documented in this encounter Results * TSH with Reflex to Free T4 (08/21/2025 10:30 AM EDT) TSH reflex Free T4 2.45 0.32 - 4.0 uIU/mL [facility] 08/21/2025 10:3 0 AM EDT 08/21/2025 10:30 AM EDT Narrative [facility] - 08/21/2025 11:57 AM EDT PER REGISTRATION [address] IRVING TO DO LABS WHENEVER us Generic External Data Provider LAB BLOOD ORDERAB LES Final Result Performing Organization Address City/[facility]/ZIP Co de Phone Number [facility] [address] [place] [phone] * Lipid Panel, Standard (08/21/2025 10:30 AM EDT) Triglycerides 77 <150 mg/dL [facility] Comment:Desirable Triglyceri de: less than 150 mg/dLBorderline High Triglyceride 150-199 mg/dLHigh Triglyceride: 200-499 mg/dLVery High Triglyceride: greater than or equal to 5OO mg/dL Cholesterol 127 <200 mg/dL [facility] Comment:Desirable Cholestero l: less than 200 mg/dLBorderline High Cholesterol: 200-239 mg/dLHigh Cholesterol: greater than 239 mg/dL LDL Cholesterol Calculated 52 <100 mg/dL [facility] Comment:Desirable LDL: less than 100 mg/dLNear Optimal/Above Optimal LDL: 110- 129 mg/dLBorderline High LDL: 130-159 mg/dLHigh LDL: 160-189 mg/dLVery High LDL: greater than or equal to 190 mg/dL HDL Cholesterol 60 >40 mg/dL [facility] Comment:Desirable HDL: great er than 40 mg/dL Note: This HDL assay may give artificially low results in patients with liver disease. 08/21/2025 10:3 0 AM EDT 08/21/2025 10:30 AM EDT Narrative [facility] - 08/21/2025 11:57 AM EDT PER REGISTRATION DR IRVING TO DO LABS WHENEVER us Generic External Data Provider LAB BLOOD ORDERAB LES Final Result Performing Organization Address City/[facility]/ZIP Co de Phone Number [facility] [address] [place] [phone] [phone] * Creatinine, Serum (08/21/2025 10:30 AM EDT) Creatinine, Serum 0.65 0.5 - 1.4 mg/dL [facility] Estimated Glomerular Filt Rate >60 [facility] Comment:Chronic Kidney Disea se: Estimated GFR < 60 mL/min/1.03g6Nwtapy Kidney Disease: Estimated GFR < 15 mL/min/1.73m2 08/21/2025 10:3 0 AM EDT 08/21/2025 10:30 AM EDT Narrative [facility] - 08/21/2025 11:57 AM EDT PER REGISTRATION DR IRVING TO DO LABS WHENEVER us Generic External Data Provider LAB BLOOD ORDERAB LES Final Result Performing Organization Address [facility] de Phone Number [facility] [address] [place] [phone] * (ABNORMAL) Hemoglobin A1c (08/21/2025 10:30 AM EDT) Hemoglobin A1c 6.8(H) <6.0 % [facility] Comment:Hemoglobin A1C Refer ence Range Adults: 4.8 - 6.0 % Non diabetic: < 6.0 % Goal: < 7.0 %Additional Action Suggested: > 8.0 %Note: Hemoglobin A1c results are invalid for patients with abnormal amounts of HbF. Blood transfusions may impact the HbA1c concentration in the patient sample. Estimated Average Glucose 148 mg/dL [facility] Comment:eAG = Estimated ave rage glucose which is %A1C expressed asaverage glucose, using the formula of the Y2I-EjhxsusKrrmmwq Glucose study (ADAG), Diabetes Care, Vol.31,#8,May. 2007 08/21/2025 10:3 0 AM EDT 08/21/2025 10:30 AM EDT Narrative [facility] - 08/21/2025 11:20 AM EDT PER REGISTRATION DR IRVING TO DO LABS WHENEVER Generic External Data Provider LAB BLOOD ORDERAB LES Final Result Performing Organization Address [facility] de Phone Number [facility] [address] [place] [phone] documented in this encounter Visit Diagnoses Not on filedocumented in this encounter Additional Health Concerns Assessment Noted Time PHQ-9 Depression Total Score: 0 12/27/19 24 11:17 AM EST documented as of this encounter Care Teams Intake Rn Relationship Specialty Start Date End Date Name, MD Gopi [address] [place] [address] PCP - General Family Medicine 02/04/16 [facility] 05/31/22 documented as of this encounter
--- OUTSIDE RECORDS SUMMARY | 2025-08-21 12:32 | XMS_ITS | Patient Health Record ---
Author Organization [facility] Address [address] [place] [address] Care Team Providers Care Wood Cutter Name Role Phone Name Gopi MORRIS Primary Care Provider UnavailMychal Elizabeth Jr Unavailable [phone] SHARONDA WEBBER Unavailable Unavailable Allergies Allergen [...] Status Risk Notes Problem Colon cancer screening (751078567) Colon cancer screening (Z12.11) Active confirmed Problem Rectal bleeding (80228490) Rectal bleeding (K62.5) Active confirmed Problem Gastric polyp (36707924) Gastric polyp (K31.7) Active confirmed Problem Constipation (90114976) Constipation, unspecified constipation type (K59.00) Active confirmed Problem Diarrhea (66237584) Diarrhea, unspecified type (R19.7) Active confirmed Problem Cirrhosis - non-alcoholic (068540424) Cirrhosis of liver without ascites, unspecified hepatic cirrhosis type (K74.60) Active confirmed Problem Microscopic colitis (808120832) Microscopic colitis, unspecified microscopic colitis type (K52.839) [...] OF [place] [address] [place] [address] [id number] KAY CHAN Self - patient is the insured MEDICAID [facility] [address] [place] [address] [id number] KAY CHAN Self - patient is the [...]
--- OUTSIDE RECORDS SUMMARY | 2025-08-21 12:32 | XMS_ITS | Encounter Summary ---
Author Organization [employer] Address [address] [place] [address] 7t [place] [address] Care Team Providers Care Assistant Golf Course Superintendent Name Role Phone Name, Gopi MORRIS Primary Care Provider [phone] Reason for Visit * Reason Onset Date Comments Referral 07/24/2025 Encounter Details Date Type Department Care Team ([facility] Contact Info) Description 07/24/2025 Telephone [facility] MEDICINE [address] [place], [place] [phone] Name, MD Gopi [address] [place] [address] Referral Social History Tobacco Use Types Packs/Day [...] with others, in a hotel, in a fdc, living outside on the street, on a [...] PM EDT Incoming TC from pt. S manager r d (Zachariah ID#[id number]) used. Pt reports they have been dealing [...] for referral. Advised pt to come to [facility] for evaluation due to 10/10 pain with no further injury. Pt states they went to [facility] and they did some XRAY's but did not do anything for her. Advised pt importance of another evaluation due to the increased pain x 1 week with no injury. Pt reports they just want a referral to orthopedics so they are able to get their injections again. Advised pt for third attempt to come to [facility] for evaluation. Advised pt message to be sent to PCP for review of referral request for orthopedics and medication request. Pt verbalized understanding and denies questions at this time. * Telephone Encounter - Kasey Cj - 07/24/2025 10:24 AM EDT Tc from pt requesting a referral for an orthopedic Contact pt at [phone] (marshallese) documented in this encounter Plan of Treatment Upcoming Encounters Date Type Department Care Team (Late st Contact Info) Description 11/04/2025 2:30 PM EST Office Visit [facility] MEDICINE [address] [place] [phone] Name, MD Gopi [address] [place] [phone] documented as of this encounter Visit Diagnoses Not on filedocumented in this encounter Additional Health Concerns Assessment Noted Time PHQ-9 Depression Total Score: 0 12/27/19 24 11:17 AM EST documented as of this encounter Care Teams Assistant Golf Course Superintendent Relationship Specialty Start Date End Date Name, MD Gopi [address] [place] [phone] PCP - General Family Medicine 02/04/16 [facility] 05/31/22 documented as of this encounter
--- OUTSIDE RECORDS SUMMARY | 2025-08-21 12:32 | XMS_ITS | Clinical Summary ---
Author Organization [employer] Address [address] [place] [address] 7t [place] [address] Care Team Providers Care Java Security Engineer Name Role Phone Name, Gopi MORRIS Primary Care Provider [phone] Allergies Active Allergy Reactions Criticality Noted Date [...] coma, without long-term current use of insulin ([facility]) 1 each by Other route 3 times daily. 1 each 05/01/20 Active glucose blood (OneTouch Verio) test strip 1 each by Other route 3 times daily. 100 each 05/02/20 24 Active Lancets (OneTouch Delica Safety Lancing) miscIndications:Co ntrolled type 2 diabetes mellitus with other specified complication, unspecified whether manager intermediate insulin use Apply 1 each topically See administration instructions. USE TO TEST BLOOD SUGAR THREE TIMES A DAY. Dx:Controlled type 2 diabetes mellitus with other specified complication, unspecified whether fdc insulin use ([facility]/HCC) 100 each 3 05/04/20 24 Active aspirin (Aspirin Low Dose) 81 MG EC tabletIndications: Hyperlipidemia, unspecified hyperlipidemia type TOME 1 TABLETA POR VIA ORAL TODOS [place] 90 tablet 1 08/22/20 24 Active UltiCare Alcohol Swabs 70 % padsIndications:Ty pe 2 diabetes mellitus with other specified complication, unspecified whether manager intermediate insulin use ([facility]) USE 1 PAD BY TOPICAL ROUTE 4 TIMES EVERY DAY 100 each 11/22/19 25 Active loratadine (Claritin) 10 MG tablet Take 1 tablet (10 mg) by mouth Once per day. 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) Use to test blood sugar 3 times daily 100 each 12 12/18/19 25 2025 Active Lancets miscIndications:Co ntrolled type 2 diabetes mellitus with other specified complication, unspecified whether fdc insulin use,Insulin dependent type 2 diabetes mellitus [...] mellitus with other specified complication, unspecified whether fdc insulin use USE 5 TIMES A DAY [...] Encounters Date Type Department Care Team Description 08/21/2025 Orders Only GENERIC EXTERNAL DATA DEPARTMENT Provider, Generic External Data 08/16/2025 Orders Only GENERIC EXTERNAL DATA DEPARTMENT Provider, Generic External Data 08/15/2025 Telephone [facility] [address] [place] [phone] AraceliRudi MA nov recalls 07/24/2025 5:40 PM EDT [facility] [address] [address] Eulalio Barbosa MD Cervicalgia (Primary Dx) 07/24/2025 Travel 07/24/2025 Telephone [facility] [address] [place] [phone] Gopi Jackson MD Referral 07/15/[address] [address] Gopi Jackson MD Cervicalgia 07/05/[address] [address] Gopi Jackson MD Nurse Triage 07/04/[address] [address] Gopi Jackson MD Referral 07/03/[address] [address] Gopi Jackson MD Prior Authorization 06/28/2025 Refill [facility] [address] [place] [address] Gopi Jackson MD Hyperlipidemia, unspecified hyperlipidemia type; Hypertension, unspecified type 06/27/2025 Results [facility] [address] [address] Alix Rodríguez, ARTIE XR CERVICAL SPINE 3V 06/26/2025 9:00 AM EDT [facility] [address] [address] Tamanna Lopez NP Cervicalgia (Primary Dx); Pain of right hip; Right hip pain 06/26/2025 Travel 06/15/2025 Refill [facility] [address] [place] [address] Gopi Jackson MD Heartburn from Last 3 [...] 2:30 PM EST Office Visit [facility] [address] [place] [phone] Name, MD Gopi [address] [place] [address] Health Maintenance Due Date Last Done Comments [...] history exists Depression Screening 12/27/2024 12/27/2023, 12/27/19 COVID-19 Vaccine ( season) 2025 08/30/2022, 10/08/2021, 01/21/2021 Influenza Vaccine (#1) 2025 3, 08/19/2023, 12/14/2022, Additional history exists Eye Exam 10/11/2025 10/11/2023 Alcohol/Substance Use Screening 10/12/2025 10/12/2024 Diabetes: Urine Protein Screening 02/14/2026 02/14/2025, 07/19/2024, 01/27/2024, Additional history exists Diabetes: Hemoglobin A1C 02/19/2026 025, 02/14/2025, 12/18/2024, Additional history exists Mammogram 03/11/2026 03/11/2025, 01/29, 01/26/2023, Additional history exists SDOH Screening 04/24/2026 04/24/2025 Tobacco Screening 07/24/2026 07/24/2025 Lipid Panel 08/21/2026 08/21/2025, 041 04/2025, 01/27/2024, Additional history exists DTaP/Tdap/Td Vaccines (2 - [...] FT4 Routine 08/21/2025 1 0:30 AM EDT LIPID PANEL, STANDARD Routine 08/21/2025 10:30 AM EDT CREATININE, SERUM Routine 08/21/2025 10: 30 AM EDT HEMOGLOBIN A1C Routine 08/21/2025 10:30 AM EDT MR CERVICAL SPINE WO CONTRAST Routine 2025 1:50 PM EDT Cervicalgia GLUCOSE, WHOLE BLOOD Routine 08/16/2025 11:32 AM EDT XR CERVICAL SPINE 3V Routine 06/26/2025 9:07 AM EDT Cervicalgia BI MAMMOGRAM SCREENING TOMOSYNTHESIS BILATERAL Routine 03/11/2025 11:05 AM EDT ALBUMIN, RANDOM URINE W/CREATININE Routine 02/14/2025 9:55 AM EDT HM COLONOSCOPY Routine 03/12/2020 3:02 PM EDT from Last 3 Months or Most Recently Relevant to Health Maintenance Results * TSH with Reflex to Free T4 (08/21/2025 10:30 AM EDT) TSH reflex Free T4 2.45 0.32 - 4.0 uIU/mL [facility] 08/21/2025 10:3 0 AM EDT 08/21/2025 10:30 AM EDT Narrative [facility] - 08/21/2025 11:57 AM EDT PER REGISTRATION DR IRVING TO DO LABS WHENEVER us Generic External Data Provider LAB BLOOD ORDERAB LES Final Result [facility] [address] [place] [phone] * Creatinine, Serum (08/21/2025 10:30 AM EDT) Creatinine, Serum 0.65 0.5 - 1.4 mg/dL [facility] Estimated Glomerular Filt Rate >60 [facility] Comment:Chronic Kidney Disea se: Estimated GFR < 60 mL/min/1.55c0Cwzdov Kidney Disease: Estimated GFR < 15 mL/min/1.73m2 08/21/2025 10:3 0 AM EDT 08/21/2025 10:30 AM EDT [facility] - 08/21/2025 11:57 AM EDT PER REGISTRATION DR IRVING TO DO LABS WHENEVER us Generic External Data Provider LAB BLOOD ORDERAB LES Final Result Performing Organization Address City/[facility]/ZIP Co de Phone Number [facility] [address] [place] [phone] * (ABNORMAL) Hemoglobin A1c (08/21/2025 10:30 AM EDT) Hemoglobin A1c 6.8(H) <6.0 % [facility] Comment:Hemoglobin A1C Refer ence Range Adults: 4.8 - 6.0 % Non diabetic: < 6.0 % Goal: < 7.0 %Additional Action Suggested: > 8.0 %Note: Hemoglobin A1c results are invalid for patients with abnormal amounts of HbF. Blood transfusions may impact the HbA1c concentration in the patient sample. Estimated Average Glucose 148 mg/dL [facility] Comment:eAG = Estimated ave rage glucose which is %A1C expressed asaverage glucose, using the formula of the K6O-ConpiijMauelvb Glucose study (ADAG), Diabetes Care, Vol.31,#8,May. 2007 08/21/2025 10:3 0 AM EDT 08/21/2025 10:30 AM EDT [facility] - 08/21/2025 11:20 AM EDT PER REGISTRATION DR IRVING TO DO LABS WHENEVER us Generic External Data Provider LAB BLOOD ORDERAB LES Final Result [facility] [address] [place] [phone] * Lipid Panel, Standard (08/21/2025 10:30 AM EDT) Triglycerides 77 <150 mg/dL [facility] Comment:Desirable Triglyceri de: less than 150 mg/dLBorderline High Triglyceride 150-199 mg/dLHigh Triglyceride: 200-499 mg/dLVery High Triglyceride: greater than or equal to 5OO mg/dL Cholesterol 127 <200 mg/dL [facility] Comment:Desirable Cholestero l: less than 200 mg/dLBorderline High Cholesterol: 200-239 mg/dLHigh Cholesterol: greater than 239 mg/dL LDL Cholesterol Calculated 52 <100 mg/dL [facility] Comment:Desirable LDL: less than 100 mg/dLNear Optimal/Above Optimal LDL: 110- 129 mg/dLBorderline High LDL: 130-159 mg/dLHigh LDL: 160-189 mg/dLVery High LDL: greater than or equal to 190 mg/dL HDL Cholesterol 60 >40 mg/dL [facility] Comment:Desirable HDL: great er than 40 mg/dL Note: This HDL assay may give artificially low results in patients with liver disease. 08/21/2025 10:3 0 AM EDT 08/21/2025 10:30 AM EDT Narrative [facility] - 08/21/2025 11:57 AM EDT PER REGISTRATION DR IRVING TO DO LABS WHENEVER us Generic External Data Provider LAB BLOOD ORDERAB LES Final Result Performing Organization Address [facility] Co de Phone Number [facility] [address] [place] [phone] * MR Cervical Spine w/o Contrast (2025 1:50 PM EDT) Anatomical Region Laterality Modality Spine, C-spine Magnetic Resonan ce 2025 1:50 PM EDT Narrative 2025 1:52 PM EDT [address] [place] [address] Magnetic Resonance Report Signed Patient: Priscila Mariscal MR#: [id number] : 1955 Acct:[id number] Age/Sex: 69 / F ADM Date: 08/18/25 Loc: HO.MRI Attending Dr: Eulalio Smith MD Ordering Physician: Eulalio Barbosa MD Date of Service: 08/18/25 Procedure(s): MR cervical spine wo con Accession Number(s): [id number] cc: Eulalio Barbosa MD; Name,Gopi MORRIS Reason for Exam: neck pain CLINICAL HISTORY: neck pain MR cervical spine without gadolinium Comparison: None provided Findings: There is straightening of the normal cervical lordosis. There is mild diffuse disc space narrowing, disc desiccation and marginal osteophyte formation. 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 This narrows the central canal at these levels. No acute fracture or acute malalignment. The visualized portions of the posterior fossa are unremarkable. The spinal cord is normal in signal. Individual levels: C2-C3: Unremarkable. C3-C4: Small posterior disc osteophyte complex with mild left neural foraminal narrowing. No significant central canal stenosis. C4-C5: Posterior longitudinal ligamentous thickening at this level results in moderately severe central canal stenosis. There is mild bilateral neural foraminal narrowing. C5-C6: Moderate central canal stenosis and moderately severe bilateral neural foraminal narrowing. C6-C7: Posterior disc protrusion, small. This results in moderate bilateral neural foraminal narrowing. No central canal stenosis. C7-T1: Unremarkable. Impression: Degenerative changes as detailed with posterior longitudinal ligament thickening/ossification resulting in moderately severe central canal stenosis at C5-C6. This document has been electronically signed by: Александр Myrick MD on 2025 13:50:34 Dictated By: Александр Myrick MD Signed By: <Electronically signed by Александр Myrick MD in OV> 08/20/25 1351 DD/ 1350 TD/TT: 08/20/25 1350 Sustainability Executive Director: Procedure Note Donotuseinterpreter, Image - [address] [address] Magnetic Resonance Report Signed Patient: Mela Mariscal#: [id number] : 4Acct:[id number] Age/Sex: 69 / FADM Date: 08/18/25 Loc: HO.MRI Attending Dr: Eulalio Smith MD Ordering Physician: Eulalio Barbosa MD Date of Service: 08/18/25 Procedure(s): MR cervical spine wo con Accession Number(s): [id number] cc: Eulalio Barbosa MD; Name,Gopi MORRIS Reason for Exam: neck pain CLINICAL HISTORY: neck pain MR cervical spine without gadolinium Comparison: None provided Findings: There is straightening of the normal cervical lordosis. There is mild diffuse disc space narrowing, disc desiccation and marginal osteophyte formation. 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 This narrows the central canal at these levels. No acute fracture or acute malalignment. The visualized portions of the posterior fossa are unremarkable. The spinal cord is normal in signal. Individual levels: C2-C3: Unremarkable. C3-C4: Small posterior disc osteophyte complex with mild left neural foraminal narrowing. No significant central canal stenosis. C4-C5: Posterior longitudinal ligamentous thickening at this level results in moderately severe central canal stenosis. There is mild bilateral neural foraminal narrowing. C5-C6: Moderate central canal stenosis and moderately severe bilateral neural foraminal narrowing. C6-C7: Posterior disc protrusion, small. This results in moderate bilateral neural foraminal narrowing. No central canal stenosis. C7-T1: Unremarkable. Impression: Degenerative changes as detailed with posterior longitudinal ligament thickening/ossification resulting in moderately severe central canal stenosis at C5-C6. This document has been electronically signed by: Александр Myrick MD on 2025 13:50:34 Dictated By: Александр Myrick MD Signed By: <Electronically signed by Александр Myrick MD in OV> 08/20/25 1351 DD/ 1350 TD/TT: 08/20/25 1350 Sustainability Executive Director: us Eulalio Smith MD IMG MRI PROCEDURES Edited Result - Final * (ABNORMAL) Glucose, Whole Blood (08/16/2025 11:32 AM EDT) Glucose, Whole Blood 157(H) 60 - 115 mg/dL [facility] Comment:METER #: [id number] 0Testing performed in the Endocrinology Department [address] , [address], [facility]. 08/16/2025 11:3 2 AM EDT 08/16/2025 11:36 AM EDT us Generic External Data Provider LAB BLOOD ORDERAB LES Final Result Performing Organization Address City/State/[facility] Co de Phone Number [facility] [address] [place] [phone] * XR CERVICAL SPINE 3V (06/26/2025 9:07 AM EDT) Anatomical Region Laterality Modality Abdomen Radiographic Edith ging 06/26/2025 9:07 AM EDT Narrative 06/26/2025 10:48 AM EDT [address] [address] XRay Report Signed Patient: Priscila Mariscal MR#: [id number] : 1955 Acct:[id number] Age/Sex: 69 / F ADM Date: 06/26/25 [facility]: Tamanna Lopez MANAGER CCU Ordering Physician: Tamanna Lopez MANAGER CCU Date of Service: 06/26/25 Procedure(s): XR cervical spine 3V Accession Number(s): [id number] cc: Tamanna Lopez MANAGER CCU EXAM: Three-view cervical spine x-ray TECHNIQUE: AP, [...] Vito Silva MD 06/26/2025 10:45 AM EDT RP Dictated By: Vito Silva MD Signed By: <Electronically signed by Vito Silva MD in OV> 06/26/25 1045 DD/ 0907 TD/TT: 06/26/25 0910 Sustainability Executive Director: Procedure Note Donotuseinterpreter, Image - 06/26/2025 [place] [address] XRay Report Signed Patient: Shaista MariscalR#: [id number] : 1955cct:[id number] Age/Sex: 69 / FADM Date: 06/26/25 Loc: .[facility] Attending Dr: Tamanna Lopez MANAGER CCU Ordering Physician: Tamanna Lopez NP Date of Service: 06/26/25 Procedure(s): XR cervical spine 3V Accession Number(s): [id number] cc: Tamanna Lopez MANAGER CCU EXAM: Three-view cervical spine x-ray TECHNIQUE: AP, [...] 06/26/25 1045 DD/ 0907 TD/TT: 06/26/25 0910 Sustainability Executive Director: us Tamanna Lopez NP IMG XR PROCEDURES Edited Result - Final * BI Mammogram Screening Tomosynthesis Bilateral (03/11/2025 11:05 AM EDT) Anatomical Region Laterality Modality Breast Bilateral Mammography 03/11/2025 11:0 5 AM EDT Narrative 03/17/2025 5:27 PM EDT [facility] [address] [place] [address] Mammography Report Signed Patient: Priscila Mariscal MR#: [id number] : 1955 Acct:[id number] Age/Sex: 69 / F ADM Date: 03/11/25 Loc: HO.MAMMO Attending Dr: Gopi Jackson MD Ordering Physician: Gopi Jackson MD Results: 2Benign Fi ndings Date of Service: 03/11/25 Follow Up: 1 Year From Orig ina Mammogram Procedure(s): MM tomosynthesis screening BI Accession Number(s): [id number] cc: Laya Christianson; Manuel,Gopi MORRIS EXAMINATION: MM SCREENING DIGITAL BREAST TOMOSYNTHESIS, [...] Daniela Benson DO 03/17/2025 05:23 PM EDT RP Dictated By: Daniela Benson DO Signed By: <Electronically signed by Daniela Benson DO in OV> 03/17/25 1723 DD/ 1105 TD/TT: 03/11/25 1130 Sustainability Executive Director: Procedure Note Donotuseinterpreter, Image - 03/18/2025 [facility] [address] [place] [address] Mammography Report Signed Patient: Shaista MariscalR#: [id number] : 4Acct:[id number] Age/Sex: 69 / FADM Date: 03/11/25 Loc: HO.MAMMO Attending Dr: Gopi Jackson MD Ordering Physician: Gopi Jackson MDResults: 2Benign Fi ndings Date of Service: 03/11/25Follow Up: 1 Year From Orig inal Mammogram Procedure(s): MM tomosynthesis screening BI Accession Number(s): [id number] cc: Laya Christianson; Manuel,Gopi MORRIS EXAMINATION: MM SCREENING DIGITAL BREAST TOMOSYNTHESIS, [...] Daniela Benson DO 03/17/2025 05:23 PM EDT RP Dictated By: Daniela Benson DO Signed By: <Electronically signed by Daniela Benson DO in OV> 03/17/25 1723 DD/ 1105 TD/TT: 03/11/25 1130 Sustainability Executive Director: Gopi Jackson MD IMEvelyn BI PROCEDURES Edited Result - Final * Albumin, Random Urine W/Creatinine (02/14/2025 9:55 AM EDT) Creatinine, Urine 54.76 mg/dL [facility] Microalbumin Urine 6.0 mg/L [facility] Microalbum Creatinine Ratio Ur 10.9 <30 ug/mg cr [facility] Comment:Albumin/Creatinine R atio Reference Ranges: Normal: < 30 ug/mg creatinine Microalbuminuria: 30 - 300 ug/mg creatinineClinical Albuminuria: > 300 ug/mg creatinine 02/14/2025 9:55 AM EDT 02/14/2025 11:03 AM EDT Generic External Data Provider LAB URINE ORDERAB LES Final Result [facility] [address] [place] [phone] * Hm Colonoscopy (03/12/2020 3:02 PM EDT) Colonoscopy Normal Normal Narrative Eileen Delgado - 03/12/2020 3:02 PM EDT Recommended 10 year follow up ( ) Historical Provider HEALTH MAINTENANCE Final Result from Last 3 Months or Most Recently Relevant to Health Maintenance Insurance [facility] STANDARD [place] [phone] Care Teams Java Security Engineer Relationship Specialty Start Date End Date Name, MD Gopi [address] [place] [address] PCP - General Family Medicine 02/04/16 [facility] 05/31/22
--- OUTSIDE RECORDS SUMMARY | 2025-08-21 12:32 | XMS_ITS | Encounter Summary ---
Author Organization [employer] Address [address] [facility] [address] [place] [address] Care Team Providers Care Post Hole Digger Name Role Phone Name, Gopi MORRIS Primary Care Provider [phone] Reason for Visit * Reason Onset Date Comments Appointment Request 11/13/2024 Encounter Details Date Type Department Care Team ([facility] Contact Info) Description 11/13/2024 Telephone [facility] [address] [place], [place] [phone] Name, MD Gopi [address] [place] [address] Appointment Request Social History Tobacco Use Types [...] 2:55 PM EST Tc meliza Rivera with [facility] requesting schedule f/u appt with pcp in regards peripheral neuropathy. [phone] documented in this encounter Plan of Treatment Upcoming Encounters Date Type Department Care Team (Late st Contact Info) Description 11/04/2025 2:30 PM EST Office Visit [facility] [address] [place] [address] Name, MD Gopi [address] [place] [address] documented as of this encounter Visit Diagnoses Not on filedocumented in this encounter Additional Health Concerns Assessment Noted Time PHQ-9 Depression Total Score: 0 12/27/19 24 11:17 AM EST documented as of this encounter Care Teams Post Hole Digger Relationship Specialty Start Date End Date Name, MD Gopi [address] [place] [address] PCP - General Family Medicine 02/04/16 [facility] 05/31/22 documented as of this encounter
== END 2025-08-21 10:13 | disposition home or self-care (01) ==
LOC: HO.LAB 10:12
PROVIDERS: PCP Internal Medicine Geriatric Medicine; Visit Provider Physician Assistant Medical
DX: E11.65 Type 2 diabetes mellitus with hyperglycemia (principal); E78.5 Hyperlipidemia, unspecified
CPT/HCPCS: 36415; 80061; 82565; 83036; 84443

== ENCOUNTER 2025-08-23 11:58 | Outpatient (AMB) | payer MEDICARE, MEDICAID, SELFPAY ==
--- NOTE | 2025-08-23 12:36 | MHC.OFFVIS ---
Vital Signs 08/23/25 12:37 Height 5 ft 2 in Weight 80 lb BMI 14.6 BP 118/68 Blood Pressure Location Lt brachial Position Sitting Respiration 16 Pulse 88 Pulse Source Pulse Oximeter Pulse Oximetry (%) 98 Oxygen Delivery Method Room Air Intake Visit Reasons: Neck Pain Industrial Commercial Groundskeeper Required: Yes Industrial Commercial Groundskeeper Services: Industrial Commercial Groundskeeper Present Industrial Commercial Groundskeeper Name: ID # [id number] Information Interpreted: non-clinical & clinical Allergies metformin (METFORMIN) Allergy (Intermediate, Verified 08/23/25 12:42) ELEVATED LIVER ENZYMES, liver damage Medication List - Last Reconciled 08/23/25 by Mamie Olvera LPN acetaminophen 500 mg PO Q6H PRN acetaminophen-codeine 300-30 mg 1 tab PO Q6H PRN alcohol swabs 1 pad topical QID aspirin 1 tab PO DAILY atorvastatin 20 mg PO BEDTIME benztropine 1 mg PO BID blood sugar diagnostic (WebKiteTouch Verio test strips) Use as directed to check blood glucose four times daily. blood-glucose meter (WebKiteTouch Verio Flex Meter) Use as directed to check blood glucose four times daily. cyclobenzaprine 5 mg PO Q8H PRN 5 days empagliflozin (Jardiance) 10 mg PO DAILY fluphenazine decanoate 50 mg IM Q3W glucose (Dex4 Glucose) 16 grams (4 x 4 gram) PO Q15M PRN ibuprofen 800 mg PO Q8H PRN 30 days insulin degludec (Tresiba FlexTouch U-200 insulin) 85 units (0.425 mL) subcut DAILY insulin lispro (Admelog SoloStar U-100 Insulin lispro) administer subcutaneously within 15 minutes of starting a meal three times daily; 14 units if blood sugar is over 220, 7 unit if blood sugar is 180-220, 0 units if blood sugar is under 180 lactulose 10 grams PO DAILY lancets (FreeStyle Lancets) Use to monitor blood glucose 3 times daily. letrozole 2.5 mg PO DAILY lidocaine 5% 1 patch topical DAILY lidocaine 5% (Lidoderm) 1 patch topical DAILY PRN MDD remove after 12 hours lisinopril 10 mg PO DAILY meloxicam 7.5 mg PO DAILY nortriptyline 75 mg PO BEDTIME omeprazole 20 mg PO DAILY pen needle, diabetic (BD Edilia 2nd Gen Pen Needle) 5 times a day polyvinyl alcohol 1.4% (Artificial Tears (polyvinyl alcohol)) 1 drp ophthalmic (eye) BID semaglutide (Ozempic) 2 mg (0.75 mL) subcut QWEEK zolpidem (Ambien) 5 mg PO BEDTIME HPI HPI Neck Pain: Details: History of Present Illness The patient is a 70-year-old female presenting with neck pain. The pain is located on the left side of the neck and radiates to the shoulder. She reports that the pain does not extend below the shoulder. The patient has a history of cervical spinal stenosis, as indicated by MRI findings showing thickening of the posterior longitudinal ligament in the cervical spine, causing moderate stenosis between C4 and C6 levels. She has not experienced any weakness or numbness in her hands. Pain Description - Location: Left side of the neck, radiating to the shoulder - Radiation: Does not extend below the shoulder - Exacerbating factors: Cervical facet loading and extension Physical Exam - Musculoskeletal: Positive cervical facet loading and extension test Results - MRI: Thickening of the posterior longitudinal ligament in the cervical spine causing moderate cervical spinal stenosis between C4 and C6 levels Pain Management - Analgesia: Plan for C5-C6 medial branch blocks on the left side - Activities of Daily Living: Pain impacts neck movement, particularly looking upwards [facility] Medical History (Updated 08/27/25 @ 13:44 by Oscar Valdez MD) Left foot pain Thyroid nodule Controlled type 2 diabetes mellitus Sleep apnea History of left breast cancer Colitis HTN (hypertension) Hypercalcemia Hirsutism Obesity Dyslipidemia Hypertension Diabetic nephropathy associated with type 2 diabetes mellitus 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 Social History Household Members: None Housing: Apartment Do you presently have visiting nurse or other home services: Yes (Epic ) Alcohol intake: never Patient Tobacco Use Status: Former Tobacco user Second Hand Smoke Exposure: No service: No Current occupational status: unemployed Current occupation: rt handed Physical Exam Vital Signs: Last Vital Signs Pulse 88 08/23/25 12:37 Resp 16 08/23/25 12:37 BP 118/68 08/23/25 12:37 Pulse Ox 98 08/23/25 12:37 Oxygen Delivery Method Room Air 08/23/25 12:37 BMI result Body Mass Index 14.6 Assessment & Plan Assessment & Plan (1) Cervical spondylosis: Code(s): M47.812 - Spondylosis without myelopathy or radiculopathy, cervical region Category: Medical Plan Plan Patient was informed and verbally consented to the use of an ambient scribe for clinic note documentation during this visit. 1. Cervical Spinal Stenosis - Plan for C4-C5-C6 medial branch blocks on the left side. - Consideration of radiofrequency ablation if blocks are positive. - Neurosurgical evaluation was offered but declined by the patient. Discussion Notes I discussed with the patient the findings of the MRI, which showed cervical spinal stenosis due to thickening of the posterior longitudinal ligament. We talked about the option of medial branch blocks at C5-C6 and the potential for radiofrequency ablation if the blocks are positive. I also offered a neurosurgical evaluation, but the patient chose to proceed with injections first. Patient Instructions - Await a call for scheduling the neck injection. - Monitor for any changes in symptoms and report if there is worsening pain or new symptoms. Coding Level of Care Code New Pt Level 4 (54635) Diagnoses Cervical spondylosis M47.812
[2025-08-23 12:37] VITALS: BP 118/68; PULSE 88; RESP 16; O2SAT 98; BMI 14.6
--- OUTSIDE RECORDS SUMMARY | 2025-08-23 14:16 | XMS_ITS | Encounter Summary ---
Author Organization [employer] Address [address] [place] [address] [address] [place] [address] Care Team Providers Care Envelope Maker Name Role Phone Name, Gopi MORRIS Primary Care Provider [phone] Reason for Visit * Reason Onset Date Comments Referral 07/24/2025 Encounter Details Date Type Department Care Team ([facility] Contact Info) Description 07/24/2025 Telephone [facility] [address] [place], [place] [phone] Name, MD Gopi [address] [place] [address] Referral Social History Tobacco Use Types Packs/Day [...] with others, in a hotel, in a chcf, living outside on the street, on a [...] PM EDT Incoming TC from pt. S department administrator (Zachariah ID#[id number]) used. Pt reports they have been dealing [...] for referral. Advised pt to come to [facility] for evaluation due to 10/10 pain with no further injury. Pt states they went to [facility] and they did some XRAY's but did not do anything for her. Advised pt importance of another evaluation due to the increased pain x 1 week with no injury. Pt reports they just want a referral to orthopedics so they are able to get their injections again. Advised pt for third attempt to come to [facility] for evaluation. Advised pt message to be sent to PCP for review of referral request for orthopedics and medication request. Pt verbalized understanding and denies questions at this time. * Telephone Encounter - Kasey Cj - 07/24/2025 10:24 AM EDT Tc from pt requesting a referral for an orthopedic Contact pt at [phone] (macedonian) documented in this encounter Plan of Treatment Upcoming Encounters Date Type Department Care Team (Late st Contact Info) Description 11/04/2025 2:30 PM EST Office Visit [facility] [address] [place] [phone] Name, MD Gopi [address] [place] [phone] documented as of this encounter Visit Diagnoses Not on filedocumented in this encounter Additional Health Concerns Assessment Noted Time PHQ-9 Depression Total Score: 0 12/27/19 24 11:17 AM EST documented as of this encounter Care Teams Envelope Maker Relationship Specialty Start Date End Date Name, MD Gopi [address] [place] [phone] PCP - General Family Medicine 02/04/16 [facility] 05/31/22 documented as of this encounter
--- OUTSIDE RECORDS SUMMARY | 2025-08-23 14:16 | XMS_ITS | Clinical Summary ---
Author Organization [employer] Address [address] [place] [address] 7t [place] [address] Care Team Providers Care Analysis Specialist Name Role Phone Name, Gopi MORRIS Primary Care Provider [phone] Allergies Active Allergy Reactions Criticality Noted Date [...] coma, without long-term current use of insulin ([facility]) 1 each by Other route 3 times daily. 1 each 05/01/20 Active glucose blood (OneTouch Verio) test strip 1 each by Other route 3 times daily. 100 each 05/02/20 24 Active Lancets (OneTouch Delica Safety Lancing) miscIndications:Co ntrolled type 2 diabetes mellitus with other specified complication, unspecified whether terminal gauger supervisor insulin use Apply 1 each topically See administration instructions. USE TO TEST BLOOD SUGAR THREE TIMES A DAY. Dx:Controlled type 2 diabetes mellitus with other specified complication, unspecified whether mcfp insulin use ([facility]) 100 each 3 05/04/20 24 Active aspirin (Aspirin Low Dose) 81 MG EC tabletIndications: Hyperlipidemia, unspecified hyperlipidemia type TOME 1 TABLETA POR VIA ORAL TODOS LOS BARLOW 90 tablet 1 08/22/20 24 Active UltiCare Alcohol Swabs 70 % padsIndications:Ty pe 2 diabetes mellitus with other specified complication, unspecified whether terminal gauger supervisor insulin use ([facility]) USE 1 PAD BY TOPICAL ROUTE 4 TIMES EVERY DAY 100 each 11/22/19 25 Active loratadine (Claritin) 10 MG tablet Take 1 tablet (10 mg) by mouth Once per day. 30 tablet 12/18/19 25 2025 Active FREESTYLE LITE test stripIndications:C ontrolled type 2 diabetes mellitus with other specified complication, unspecified whether mcfp insulin use,Insulin dependent type 2 diabetes mellitus (HCC) Use to test blood sugar 3 times daily 100 each 12 12/18/19 25 2025 Active Lancets miscIndications:Co ntrolled type 2 diabetes mellitus with other specified complication, unspecified whether mcfp insulin use,Insulin dependent type 2 diabetes mellitus [...] mellitus with other specified complication, unspecified whether mcfp insulin use USE 5 TIMES A DAY [...] DEPARTMENT Provider, Generic External Data 08/15/2025 Telephone [facility] [address] [place] [phone] AraceliRudi MA nov recalls 07/24/2025 5:40 PM EDT [facility] [address] [address] Eulalio Barbosa MD Cervicalgia (Primary Dx) 07/24/2025 Travel 07/24/2025 Telephone [facility] [address] [place] [phone] Gopi Jackson MD Referral 07/15/[address] [address] Gopi Jackson MD Cervicalgia 07/05/[address] [address] Gopi Jackson MD Nurse Triage 07/04/[address] [address] Gopi Jackson MD Referral 07/03/[address] [address] Gopi Jackson MD Prior Authorization 06/28/2025 Refill [facility] [address] [place] [address] Gopi Jackson MD Hyperlipidemia, unspecified hyperlipidemia type; Hypertension, unspecified type 06/27/2025 Results Follow-Up [facility] [address] [address] Alix Rodríguez, ARTIE XR CERVICAL SPINE 3V 06/26/2025 9:00 AM EDT [facility] [address] [address] Tamanna Lopez NP Cervicalgia (Primary Dx); Pain of right hip; Right hip pain 06/26/2025 Travel 06/15/2025 Refill [facility] [address] [place] [address] Gopi Jackson MD Heartburn from Last 3 [...] with others, in a hotel, in a assisted, living outside on the street, on a [...] Description 11/04/2025 2:30 PM EST Office Visit [facility] [address] [place] [address] Name, MD Gopi [address] [place] [address] Health Maintenance Due Date Last Done Comments [...] Free T4 2.45 0.32 - 4.0 uIU/mL [facility] 08/21/2025 10:3 0 AM EDT 08/21/2025 10:30 AM EDT Narrative [facility] - 08/21/2025 11:57 AM EDT PER REGISTRATION DR IRVING TO DO LABS WHENEVER us Generic External Data Provider LAB BLOOD ORDERAB LES Final Result [facility] [address] [place] [phone] * Creatinine, Serum (08/21/2025 10:30 AM EDT) Creatinine, Serum 0.65 0.5 - 1.4 mg/dL [facility] Estimated Glomerular Filt Rate >60 [facility] Comment:Chronic Kidney Disea se: Estimated GFR < 60 mL/min/1.06h6Dcdmwq Kidney Disease: Estimated GFR < 15 mL/min/1.73m2 08/21/2025 10:3 0 AM EDT 08/21/2025 10:30 AM EDT [facility] - 08/21/2025 11:57 AM EDT PER REGISTRATION DR IRVING TO DO LABS WHENEVER us Generic External Data Provider LAB BLOOD ORDERAB LES Final Result Performing Organization Address City/[facility]/ZIP Co de Phone Number [facility] [address] [place] [phone] * (ABNORMAL) Hemoglobin A1c (08/21/2025 10:30 AM EDT) Hemoglobin A1c 6.8(H) <6.0 % [facility] Comment:Hemoglobin A1C Refer ence Range Adults: 4.8 - 6.0 % Non diabetic: < 6.0 % Goal: < 7.0 %Additional Action Suggested: > 8.0 %Note: Hemoglobin A1c results are invalid for patients with abnormal amounts of HbF. Blood transfusions may impact the HbA1c concentration in the patient sample. Estimated Average Glucose 148 mg/dL [facility] Comment:eAG = Estimated ave rage glucose which is %A1C expressed asaverage glucose, using the formula of the C8P-DpstxrmWpgjozb Glucose study (ADAG), Diabetes Care, Vol.31,#8,May. 2007 08/21/2025 10:3 0 AM EDT 08/21/2025 10:30 AM EDT [facility] - 08/21/2025 11:20 AM EDT PER REGISTRATION DR IRVING TO DO LABS WHENEVER us Generic External Data Provider LAB BLOOD ORDERAB LES Final Result [facility] [address] [place] [phone] * Lipid Panel, Standard (08/21/2025 10:30 AM EDT) Triglycerides 77 <150 mg/dL [facility] Comment:Desirable Triglyceri de: less than 150 mg/dLBorderline High Triglyceride 150-199 mg/dLHigh Triglyceride: 200-499 mg/dLVery High Triglyceride: greater than or equal to 5OO mg/dL Cholesterol 127 <200 mg/dL [facility] Comment:Desirable Cholestero l: less than 200 mg/dLBorderline High Cholesterol: 200-239 mg/dLHigh Cholesterol: greater than 239 mg/dL LDL Cholesterol Calculated 52 <100 mg/dL [facility] Comment:Desirable LDL: less than 100 mg/dLNear Optimal/Above Optimal LDL: 110- 129 mg/dLBorderline High LDL: 130-159 mg/dLHigh LDL: 160-189 mg/dLVery High LDL: greater than or equal to 190 mg/dL HDL Cholesterol 60 >40 mg/dL [facility] Comment:Desirable HDL: great er than 40 mg/dL Note: This HDL assay may give artificially low results in patients with liver disease. 08/21/2025 10:3 0 AM EDT 08/21/2025 10:30 AM EDT Narrative [facility] - 08/21/2025 11:57 AM EDT PER REGISTRATION DR IRVING TO DO LABS WHENEVER us Generic External Data Provider LAB BLOOD ORDERAB LES Final Result Performing Organization Address [facility] Co de Phone Number [facility] [address] [place] [address] [phone] * MR Cervical Spine w/o Contrast (2025 1:50 PM EDT) Anatomical Region Laterality Modality Spine, C-spine Magnetic Resonan ce 2025 1:50 PM EDT Narrative 2025 1:52 PM EDT [address] [place] [address] Magnetic Resonance Report Signed Patient: Priscila Mariscal MR#: [id number] : 1955 Acct:[id number] Age/Sex: 69 / F ADM Date: 08/18/25 Loc: HO.MRI Attending Dr: Eulalio Smith MD Ordering Physician: Eulalio Barbosa MD Date of Service: 08/18/25 Procedure(s): MR cervical spine wo con Accession Number(s): [id number] cc: Eulalio Barbosa MD; Name,Gopi MORRIS Reason [...] 08/20/25 1351 DD/ 1350 TD/TT: 08/20/25 1350 Line Construction Superintendent: Procedure Note Donotuseinterpreter, Image - [address] [address] Magnetic Resonance Report Signed Patient: Mela Mariscal#: [id number] : 4Acct:[id number] Age/Sex: 69 / FADM Date: 08/18/25 Loc: HO.MRI Attending Dr: Eulalio Smith MD Ordering Physician: Eulalio Barbosa MD Date of Service: 08/18/25 Procedure(s): MR cervical spine wo con Accession Number(s): [id number] cc: Eulalio Barbosa MD; Name,Gopi MORRIS Reason [...] 08/20/25 1351 DD/ 1350 TD/TT: 08/20/25 1350 Line Construction Superintendent: us Eulalio Smith MD IMG MRI PROCEDURES Edited Result - Final * (ABNORMAL) Glucose, Whole Blood (08/16/2025 11:32 AM EDT) Glucose, Whole Blood 157(H) 60 - 115 mg/dL [facility] Comment:METER #: [id number] 0Testing performed in the Endocrinology Department [address] , [address], [facility]. 08/16/2025 11:3 2 AM EDT 08/16/2025 11:36 AM EDT us Generic External Data Provider LAB BLOOD ORDERAB LES Final Result Performing Organization Address City/State/[facility] Co de Phone Number [facility] [address] [place] [phone] * XR CERVICAL SPINE 3V (06/26/2025 9:07 AM EDT) Anatomical Region Laterality Modality Abdomen Radiographic Edith ging 06/26/2025 9:07 AM EDT Narrative 06/26/2025 10:48 AM EDT [address] [address] XRay Report Signed Patient: Priscila Mariscal MR#: [id number] : 1955 Acct:[id number] Age/Sex: 69 / F ADM Date: 06/26/25 [facility]: Tamanna Lopez TURKISH LINE ATTENDANT Ordering Physician: Tamanna Lopez TURKISH LINE ATTENDANT Date of Service: 06/26/25 Procedure(s): XR cervical spine 3V Accession Number(s): [id number] cc: Tamanna Lopez TURKISH LINE ATTENDANT EXAM: Three-view cervical spine x-ray TECHNIQUE: AP, [...] 06/26/25 1045 DD/ 0907 TD/TT: 06/26/25 0910 Line Construction Superintendent: Procedure Note Donotuseinterpreter, Image - 06/26/2025 [place] [address] XRay Report Signed Patient: Shaista MariscalR#: [id number] : 1955cct:[id number] Age/Sex: 69 / FADM Date: 06/26/25 Loc: .[facility] Attending Dr: Tamanna Lopez TURKISH LINE ATTENDANT Ordering Physician: Tamanna Lopez NP Date of Service: 06/26/25 Procedure(s): XR cervical spine 3V Accession Number(s): [id number] cc: Tamanna Lopez TURKISH LINE ATTENDANT EXAM: Three-view cervical spine x-ray TECHNIQUE: AP, [...] 06/26/25 1045 DD/ 0907 TD/TT: 06/26/25 0910 Line Construction Superintendent: us Tamanna Lopez NP IMG XR PROCEDURES Edited Result - Final * BI Mammogram Screening Tomosynthesis Bilateral (03/11/2025 11:05 AM EDT) Anatomical Region Laterality Modality Breast Bilateral Mammography 03/11/2025 11:0 5 AM EDT Narrative 03/17/2025 5:27 PM EDT [facility] [address] [place] [address] Mammography Report Signed Patient: Priscila Mariscal MR#: [id number] : 1955 Acct:[id number] Age/Sex: 69 / F ADM Date: 03/11/25 Loc: HO.MAMMO Attending Dr: Gopi Jackson MD Ordering Physician: Gopi Jackson MD Results: 2Benign Fi ndings Date of Service: 03/11/25 Follow Up: 1 Year From Orig ina Mammogram Procedure(s): MM tomosynthesis screening BI Accession Number(s): [id number] cc: Laya Christianson; Manuel,Gopi MORRIS EXAMINATION: MM [...] 03/17/25 1723 DD/ 1105 TD/TT: 03/11/25 1130 Line Construction Superintendent: Procedure Note Donotuseinterpreter, Image - 03/18/2025 [facility] [address] [place] [address] Mammography Report Signed Patient: Shaista MariscalR#: [id number] : 4Acct:[id number] Age/Sex: 69 / FADM Date: 03/11/25 Loc: HO.MAMMO Attending Dr: Gopi Jackson MD Ordering Physician: Gopi Jackson MDResults: 2Benign Fi ndings Date of Service: 03/11/25Follow Up: 1 Year From Orig inal Mammogram Procedure(s): MM tomosynthesis screening BI Accession Number(s): [id number] cc: Laya Christianson; Manuel,Gopi MORRIS EXAMINATION: MM [...] 03/17/25 1723 DD/ 1105 TD/TT: 03/11/25 1130 Line Construction Superintendent: Gopi Jackson MD IMEvelyn BI PROCEDURES Edited Result - Final * Albumin, Random Urine W/Creatinine (02/14/2025 9:55 AM EDT) Creatinine, Urine 54.76 mg/dL [facility] Microalbumin Urine 6.0 mg/L [facility] Microalbum Creatinine Ratio Ur 10.9 <30 ug/mg cr [facility] Comment:Albumin/Creatinine R atio Reference Ranges: Normal: < 30 ug/mg creatinine Microalbuminuria: 30 - 300 ug/mg creatinineClinical Albuminuria: > 300 ug/mg creatinine 02/14/2025 9:55 AM EDT 02/14/2025 11:03 AM EDT Generic External Data Provider LAB URINE ORDERAB LES Final Result [facility] [address] [place] [phone] * Hm Colonoscopy (03/12/2020 3:02 PM EDT) Colonoscopy Normal Normal Narrative Eileen Delgado - 03/12/2020 3:02 PM EDT Recommended 10 year follow up ( ) Historical Provider HEALTH MAINTENANCE Final Result from Last 3 Months or Most Recently Relevant to Health Maintenance Insurance [facility] STANDARD MEDICARE Care Teams Analysis Specialist Relationship Specialty Start Date End Date Name, MD Gopi [address] [place] [address] PCP - General Family Medicine 02/04/16 [facility] 05/31/22
--- OUTSIDE RECORDS SUMMARY | 2025-08-23 14:16 | XMS_ITS | Clinical Summary ---
Author Organization [facility] [place] [address] Care Team Providers Care Carbon Printer Name Role Phone Unavailable Primary Care Provider [...]
--- OUTSIDE RECORDS SUMMARY | 2025-08-23 14:16 | XMS_ITS | Encounter Summary ---
Author Organization [employer] Address [address] [facility] 7t [place] [address] Care Team Providers Care Edge Trimmer Name Role Phone Name, Gopi MORRIS Primary Care Provider [phone] Encounter Details Date Type Department Care Team ([facility] Contact Info) Description 08/21/2025 Orders Only GENERIC [...] t he electric, gas, oil or water [employer] threatened to shut off services in your [...] Visit [facility]INE [address] [place], [place] [phone] Name, MD Gopi [address] [place] [address] documented as of this encounter Procedures Procedure [...] Free T4 2.45 0.32 - 4.0 uIU/mL [facility] 08/21/2025 10:3 0 AM EDT 08/21/2025 10:30 AM EDT Narrative [facility] - 08/21/2025 11:57 AM EDT PER REGISTRATION DR IRVING TO DO LABS WHENEVER us Generic External Data Provider LAB BLOOD ORDERAB LES Final Result Performing Organization Address City/[facility]/ZIP Co de Phone Number [facility] [address] [place] [address] [phone] * Lipid Panel, Standard (08/21/2025 10:30 AM EDT) Triglycerides 77 <150 mg/dL [facility] Comment:Desirable Triglyceri de: less than 150 mg/dLBorderline High Triglyceride 150-199 mg/dLHigh Triglyceride: 200-499 mg/dLVery High Triglyceride: greater than or equal to 5OO mg/dL Cholesterol 127 <200 mg/dL [facility] Comment:Desirable Cholestero l: less than 200 mg/dLBorderline High Cholesterol: 200-239 mg/dLHigh Cholesterol: greater than 239 mg/dL LDL Cholesterol Calculated 52 <100 mg/dL [facility] Comment:Desirable LDL: less than 100 mg/dLNear Optimal/Above Optimal LDL: 110- 129 mg/dLBorderline High LDL: 130-159 mg/dLHigh LDL: 160-189 mg/dLVery High LDL: greater than or equal to 190 mg/dL HDL Cholesterol 60 >40 mg/dL [facility] Comment:Desirable HDL: great er than 40 mg/dL Note: This HDL assay may give artificially low results in patients with liver disease. 08/21/2025 10:3 0 AM EDT 08/21/2025 10:30 AM EDT Narrative [facility] - 08/21/2025 11:57 AM EDT PER REGISTRATION DR IRVING TO DO LABS WHENEVER us Generic External Data Provider LAB BLOOD ORDERAB LES Final Result Performing Organization Address City/[facility]/ZIP Co de Phone Number [facility] [address] [place] [address] [phone] * Creatinine, Serum (08/21/2025 10:30 AM EDT) Creatinine, Serum 0.65 0.5 - 1.4 mg/dL [facility] Estimated Glomerular Filt Rate >60 [facility] Comment:Chronic Kidney Disea se: Estimated GFR < 60 mL/min/1.22s8Lzcaor Kidney Disease: Estimated GFR < 15 mL/min/1.73m2 08/21/2025 10:3 0 AM EDT 08/21/2025 10:30 AM EDT Narrative [facility] - 08/21/2025 11:57 AM EDT PER REGISTRATION DR IRVING TO DO LABS WHENEVER us Generic External Data Provider LAB BLOOD ORDERAB LES Final Result Performing Organization Address [facility] de Phone Number [facility] [address] [place] [phone] * (ABNORMAL) Hemoglobin A1c (08/21/2025 10:30 AM EDT) Hemoglobin A1c 6.8(H) <6.0 % [facility] Comment:Hemoglobin A1C Refer ence Range Adults: 4.8 - 6.0 % Non diabetic: < 6.0 % Goal: < 7.0 %Additional Action Suggested: > 8.0 %Note: Hemoglobin A1c results are invalid for patients with abnormal amounts of HbF. Blood transfusions may impact the HbA1c concentration in the patient sample. Estimated Average Glucose 148 mg/dL [facility] Comment:eAG = Estimated ave rage glucose which is %A1C expressed asaverage glucose, using the formula of the F8J-IpwhgrcTjunksk Glucose study (ADAG), Diabetes Care, Vol.31,#8,May. 2007 08/21/2025 10:3 0 AM EDT 08/21/2025 10:30 AM EDT Narrative [facility] - 08/21/2025 11:20 AM EDT PER REGISTRATION DR IRVING TO DO LABS WHENEVER Generic External Data Provider LAB BLOOD ORDERAB LES Final Result Performing Organization Address [facility] de Phone Number [facility] [address] [place] [phone] documented in this encounter Visit Diagnoses Not on filedocumented in this encounter Additional Health Concerns Assessment Noted Time PHQ-9 Depression Total Score: 0 12/27/19 24 11:17 AM EST documented as of this encounter Care Teams Edge Trimmer Relationship Specialty Start Date End Date Name, MD Gopi [address] [place] [address] PCP - General Family Medicine 02/04/16 [facility] 05/31/22 documented as of this encounter
--- OUTSIDE RECORDS SUMMARY | 2025-08-23 14:16 | XMS_ITS | Encounter Summary ---
Author Organization [employer] Address [address] [facility] 7t [place] [address] Care Team Providers Care Gaming Surveillance Observer Name Role Phone Name, Gopi MORRIS Primary Care Provider [phone] Reason for Visit * Reason Comments Med Change Request Encounter Details Date Type Department Care Team ([facility] Contact Info) Description 10/05/2023 Refill [facility] [address] [place] [address] Johana Garibay, ANP [address] [place] [address] Acute bacterial conjunctivitis of both eyes Social [...] Description 11/04/2025 2:30 PM EST Office Visit [facility] MED[facility]INE [address] [place] [address] Name, MD Gopi [address] [place] [phone] documented as of this encounter Visit Diagnoses Diagnosis Acute bacterial conjunctivitis of both eyes documented in this encounter Care Teams Gaming Surveillance Observer Relationship Specialty Start Date End Date Name, MD Gopi [address] [place] [phone] PCP - General Family Medicine 02/04/16 [facility] 05/31/22 documented as of this encounter
--- OUTSIDE RECORDS SUMMARY | 2025-08-23 14:16 | XMS_ITS | Encounter Summary ---
Author Organization [employer] Address [address] [facility] 7t [place] [address] Care Team Providers Care Docking Pilot Name Role Phone Name, Gopi MORRIS Primary Care Provider [phone] Reason for Visit * Reason Onset Date Comments FYI 02/01/2024 Encounter Details Date Type Department Care Team ([facility] Contact Info) Description 02/01/2024 Telephone [facility] [address] [place], [place] [phone] Name, MD Gopi [address] [place] [address] FYI Social History Tobacco Use Types Packs/Day [...] wanted to inform pt is traveling to [place] from 02/18 and returning on 03/05 and she is going to put services on hold during traveling. Son its going to be on charge of pt medications during traveling days. Any questions contact Nicole at [phone] documented in this encounter Plan of Treatment Upcoming Encounters Date Type Department Care Team (Late st Contact Info) Description 11/04/2025 2:30 PM EST Office Visit [facility] [address] [place] [address] Name, MD Gopi [address] [place] [address] documented as of this encounter Visit Diagnoses Not on filedocumented in this encounter Additional Health Concerns Assessment Noted Time PHQ-9 Depression Total Score: 0 12/27/19 24 11:17 AM EST documented as of this encounter Care Teams Docking Pilot Relationship Specialty Start Date End Date Name, MD Gopi [address] [place] [address] PCP - General Family Medicine 02/04/16 [facility] 05/31/22 documented as of this encounter
--- OUTSIDE RECORDS SUMMARY | 2025-08-23 14:16 | XMS_ITS | Encounter Summary ---
Author Organization [employer] [facility] Address [address] [place] [address] 7 [place] [address] Care Team Providers Care Fingerprint Classifier Name Role Phone Name, Gopi MORRIS Primary Care Provider Encounter Details Date Type Department Care Team ([facility] Contact Info) Description 03/31/2023 Abstract [facility] MEDICINE [address] [place] [address] [phone] Gopi Jackson MD [address] [place] [address] [phone] Social History Tobacco Use Types Packs/Day Years [...] Description 11/04/2025 2:30 PM EST Office Visit [facility] MED[facility] [address] [place] [address] [phone] NameGopi MD [address] [place] [address] [phone] documented as of this encounter Procedures Procedure [...] on filedocumented in this encounter Care Teams Fingerprint Classifier Relationship Specialty Start Date End Date Name, MD Gopi [address] [place] [address] PCP - General Family Medicine 02/04/16 [facility] 05/31/22 documented as of this encounter
--- OUTSIDE RECORDS SUMMARY | 2025-08-23 14:16 | XMS_ITS | Encounter Summary ---
Author Organization [employer] Address [address] [facility] 7t [place] [address] Care Team Providers Care Jet Mechanic Name Role Phone Name, Gopi MORRIS Primary Care Provider [phone] Reason for Visit * Reason Onset Date Comments Appointment Request 11/13/2024 Encounter Details Date Type Department Care Team ([facility] Contact Info) Description 11/13/2024 Telephone [facility] MEDICINE [address] [place], [place] [phone] Name, MD Gopi [address] [place] [address] Appointment Request Social History Tobacco Use Types [...] 2:55 PM EST Tc meliza Rivera with [facility] requesting schedule f/u appt with pcp in regards peripheral neuropathy. [phone] documented in this encounter Plan of Treatment Upcoming Encounters Date Type Department Care Team (Late st Contact Info) Description 11/04/2025 2:30 PM EST Office Visit [facility] MEDICINE [address] [place] [address] Name, MD Gopi [address] [place] [address] documented as of this encounter Visit Diagnoses Not on filedocumented in this encounter Additional Health Concerns Assessment Noted Time PHQ-9 Depression Total Score: 0 12/27/19 24 11:17 AM EST documented as of this encounter Care Teams Jet Mechanic Relationship Specialty Start Date End Date Name, MD Gopi [address] [place] [address] PCP - General Family Medicine 02/04/16 [facility] 05/31/22 documented as of this encounter
--- OUTSIDE RECORDS SUMMARY | 2025-08-23 14:17 | XMS_ITS | Patient Health Record ---
Author Organization [facility] Address [address] [place] [address] Care Team Providers Care Scouring Machine Tender Name Role Phone Name Gopi MORRIS Primary Care Provider UnavailMychal Elizabeth Jr Unavailable [phone] SHARONDA WEBBER Unavailable Unavailable Allergies Allergen [...] Status Risk Notes Problem Colon cancer screening (941579552) Colon cancer screening (Z12.11) Active confirmed Problem Rectal bleeding (56768334) Rectal bleeding (K62.5) Active confirmed Problem Gastric polyp (93277760) Gastric polyp (K31.7) Active confirmed Problem Constipation (12931797) Constipation, unspecified constipation type (K59.00) Active confirmed Problem Diarrhea (44087017) Diarrhea, unspecified type (R19.7) Active confirmed Problem Cirrhosis - non-alcoholic (004692932) Cirrhosis of liver without ascites, unspecified hepatic cirrhosis type (K74.60) Active confirmed Problem Microscopic colitis (309082963) Microscopic colitis, unspecified microscopic colitis type (K52.839) [...] OF [place] [address] [place] [address] [id number] KAY CHAN Self - patient is the insured MEDICAID [facility] [address] [place] [phone] [id number] KAY CHAN Self - patient is the [...]
== END 2025-08-23 13:22 | disposition home or self-care (01) ==
PROVIDERS: PCP Internal Medicine Geriatric Medicine; Visit Provider Internal Medicine
DX: M47.812 Spondylosis without myelopathy or radiculopathy, cervical region (principal)
CPT/HCPCS: 99214

== ENCOUNTER → 2025-08-23 11:58 | Outpatient (BNVA) | payer MEDICARE, MEDICAID, SELFPAY | PROVIDERS: PCP Internal Medicine Geriatric Medicine; Visit Provider Internal Medicine | DX: M47.812 Spondylosis without myelopathy or radiculopathy, cervical region (principal); M48.02 Spinal stenosis, cervical region; M54.2 Cervicalgia | CPT/HCPCS: 99212 ==

== ENCOUNTER 2025-09-04 10:57 | Outpatient (REF) | payer MEDICARE, MEDICAID, SELFPAY ==
--- OUTSIDE RECORDS SUMMARY | 2025-09-04 13:00 | XMS_ITS | Patient Health Record ---
Author Organization [facility] Address [address] [place] [address] Care Team Providers Care Emu Farmer Name Role Phone Name Gopi MORRIS Primary Care Provider UnavailMychal Elizabeth Jr Unavailable [phone] SHARONDA WEBBER Unavailable Unavailable Allergies Allergen [...] Status Risk Notes Problem Colon cancer screening (649485650) Colon cancer screening (Z12.11) Active confirmed Problem Rectal bleeding (27373739) Rectal bleeding (K62.5) Active confirmed Problem Gastric polyp (18278002) Gastric polyp (K31.7) Active confirmed Problem Constipation (98238666) Constipation, unspecified constipation type (K59.00) Active confirmed Problem Diarrhea (69098794) Diarrhea, unspecified type (R19.7) Active confirmed Problem Cirrhosis - non-alcoholic (088004395) Cirrhosis of liver without ascites, unspecified hepatic cirrhosis type (K74.60) Active confirmed Problem Microscopic colitis (804130791) Microscopic colitis, unspecified microscopic colitis type (K52.839) [...] OF [place] [address] [place] [address] [id number] KAY CHAN Self - patient is the insured MEDICAID OF [facility] [address] [place] [address] [id number] KAY CHAN Self - patient is the [...]
--- OUTSIDE RECORDS SUMMARY | 2025-09-04 13:00 | XMS_ITS | Clinical Summary ---
Author Organization [employer] [facility] [address] Care Team Providers Care Plasma Cutting Machine Operator Name Role Phone Unavailable Primary Care Provider [...]
== END 2025-09-04 10:58 | disposition home or self-care (01) ==
LOC: HO.LNP 10:57
PROVIDERS: Visit Provider Physician Assistant Medical
DX: E11.9 Type 2 diabetes mellitus without complications (principal)
CPT/HCPCS: 82043; 82570

== ENCOUNTER 2025-09-30 13:24 | Outpatient (AMB) | payer MEDICARE, MEDICAID, SELFPAY ==
--- NOTE | 2025-09-30 13:46 | A.OFFVIS_ITS ---
Vital Signs 09/30/25 13:47 Height 5 ft 2 in Weight 180 lb BMI 32.9 Intake Visit Reasons: Left foot pain, callus Intake Note: Patient is 70 year old female presenting today as a new patient for Left foot pain, callus. She has had the pain about 2 years. Patient does have Diabetes - last finger stick glucose - 135, last Hemoglobin A1c 08/16 is 6.7 - She does experience burning, numbness or tingling in her feet, with no history of wounds or amputations. Her medication list up to date, - base of toes there is what looks to be a callus. Horticultural Manager Required: Yes Allergies metformin (METFORMIN) Allergy (Intermediate, Verified 09/30/25 13:47) ELEVATED LIVER ENZYMES, liver damage HPI Comments Details: The patient is a 70 year old individual with a past medical history as seen below presenting for a diabetic foot exam and callus to the left foot. Patient states the callus has been present for approximately 2 years and causes pain, especially when ambulating. The patient denies any pus, drainage, or bleeding from the callus area. The patient reports a tingling sensation in both feet which disrupts sleep. The patient's history is significant for diabetes mellitus, with a blood glucose level of 135 mg/dL reported today. The patient de nies any recent injuries to the feet. The patient has not previously received diabetic shoes or inserts. 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 Social History Household Members: None Housing: Apartment Do you presently have visiting nurse or other home services: Yes ([facility] ) Alcohol intake: never Patient Tobacco Use Status: Former Tobacco user Second Hand Smoke Exposure: No service: No Current occupational status: unemployed Current occupation: rt handed Review of Systems Const Details: - Neurological: Reports tingling sensation in bilateral feet. - Musculoskeletal: Reports foot pain from calluses, making it difficult to bear weight. - Constitutional: Reports sleep disturbance due to tingling sensation. - Integumentary: Denies any pus, drainage, or bleeding from the calluses. Reports calluses to the left foot. All systems reviewed & are unremarkable except as noted in HPI and below Physical Exam Vital Signs: BMI result Body Mass Index 32.9 Extrem Other: Bilateral lower extremity focused physical exam: Derm: Hyperkeratotic lesion noted to the plantar aspect of the left foot in the area of submet 2. No open lesions, abrasions, wounds noted. No maceration noted. No ecchymosis, erythema, or discoloration noted. Skin supple and turgor within normal limits. No clinical signs of infection noted. Toenails noted to be within normal length. Vascular: DP/PT pulses palpable. Capillary refill time less than 3 seconds. Temperature gradient warm to warm. Pedal hair absent. Mild varicosities noted. Neuro: Protective sensations grossly intact to light touch and slightly diminished to monofilament testing. MSK: Pain on palpation to the area of the hyperkeratotic lesion. No crepitus or fluctuance noted. To motion of the forefoot, hindfoot, and ankles within normal limits. No other gross abnormalities noted. Office Procedures AMB Debridement/Avulsion Podia Details: Debrided the hyperkeratotic lesion noted to the left foot with a 15. Blade without incidents. [id number] of Callus (1) Procedure code (CPT) selection complete Diabetic Foot Exam G9226 - Diabetic Foot Exam Results Reviewed Results Reviewed: Laboratory Tests 08/07/25 08/16/25 08/21/25 14:59 11:32 10:30 WBC 6.2 Glucose (Clinic) 157 H Estimat Average Glucose 148 Hemoglobin A1c % 6.8 H AST 29 ALT 43 H Assessment & Plan Assessment & Plan (1) Diabetic nephropathy associated with type 2 diabetes mellitus: Code(s): E11.21 - Type 2 diabetes mellitus with diabetic nephropathy Category: Medical (2) Metatarsalgia, left foot: Code(s): M77.42 - Metatarsalgia, left foot Category: Medical (3) Plantar keratosis: Code(s): Q82.8 - Other specified congenital malformations of skin Category: Medical (4) Other specified epidermal thickening: Code(s): L85.8 - Other specified epidermal thickening Category: Medical (5) Left foot pain: Code(s): M79.672 - Pain in left foot Category: Medical (6) Diabetes type 2: Code(s): E11.9 - Type 2 diabetes mellitus without complications Category: Medical (7) Diabetic neuropathy: Code(s): E11.40 - Type 2 diabetes mellitus with diabetic neuropathy, unspecified Category: Medical Plan Patient was informed and verbally consented to the use of an ambient scribe for clinic note documentation during this visit. Educated the patient on diabetes and the affects on the lower extremities. I educated the patient that the numbness and tingling are caused by diabetes and reinforced the importance of daily foot inspections to monitor for wounds, as diabetes slows healing. We discussed the management plan, including routine follow-up every nine weeks for continued nail and callus care. I will provide a prescription for diabetic shoes and inserts. - Debrided the hyperkeratotic lesion noted to the left foot. - Recommended applying Vaseline or a thick cream to the area to manage recurrence. - A prescription for diabetic shoes and inserts was provided. - The patient was educated on the importance of daily foot inspections to monitor for wounds, given that diabetes can slow the healing process. - Patient is to avoid barefoot walking as to wear supportive shoe gear. - Continue diabetic management as per PCP. RTC in 9 weeks. Orders: Orders AMB Debridement/Avulsion Podiatry 09/30/25 E11.21 - Type 2 diabetes mellitus with diabetic nephropathy, E11.40 - Type 2 diabetes mellitus with diabetic neuropathy, unspecified, E11.9 - Type 2 diabetes mellitus without complications, L85.8 - Other specified epidermal thickening, M77.42 - Metatarsalgia, left foot, M79.672 - Pain in left foot, Q82.8 - Other specified congenital malformations of skin AMB Diabetic Foot Exam 09/30/25 E11.21 - Type 2 diabetes mellitus with diabetic nephropathy, E11.40 - Type 2 diabetes mellitus with diabetic neuropathy, unspecified, E11.9 - Type 2 diabetes mellitus without complications, L85.8 - Other specified epidermal thickening, M77.42 - Metatarsalgia, left foot, M79.672 - Pain in left foot, Q82.8 - Other specified congenital malformations of skin Medications: New [Diabetic Shoes and Inserts] As directed 1 ea 0RF E11.21 - Type 2 diabetes mellitus with diabetic nephropathy, L85.8 - Other specified epidermal thickening, M77.42 - Metatarsalgia, left foot, M79.671 - Pain in right foot, M79.672 - Pain in left foot, Q82.8 - Other specified congenital malformations of skin Coding Level of Care Code New Pt Level 4 (34559) Diagnoses Diabetic nephropathy associated with type 2 diabetes mellitus E11.21 Metatarsalgia, left foot M77.42 Plantar keratosis Q82.8 Other specified epidermal thickening L85.8 Left foot pain M79.672 Diabetes type 2 E11.9 Diabetic neuropathy E11.40 CPT Codes Skin Debridement - CPT: 94327-[id number] of Callus (1) ([id number]) Diabetic Foot Exam - CPT: G9226 - Diabetic Foot Exam ([id number]) Time Spent (min) 50 Comment 5 mins for procedure
[2025-09-30 13:47] VITALS: BMI 32.9
--- OUTSIDE RECORDS SUMMARY | 2025-09-30 16:58 | XMS_ITS | Encounter Summary ---
Author Organization [employer] Address [address] [facility] 7t [place] [address] Care Team Providers Care Cover Mat Machine Operator Name Role Phone Name, Gopi MORRIS Primary Care Provider [phone] Reason for Visit * Reason Comments Med Change Request Encounter Details Date Type Department Care Team ([facility] Contact Info) Description 10/05/2023 Refill [facility] [address] [place] [address] Johana Garibay, ANP [address] [place] [address] Acute bacterial conjunctivitis of both eyes Social [...] 11/04/2025 2:30 PM EST Office Visit [facility] MEDICINE [address] [place] [address] Name, MD Gopi [address] [place] [address] documented as of this encounter Visit Diagnoses Diagnosis Acute bacterial conjunctivitis of both eyes documented in this encounter Care Teams Cover Mat Machine Operator Relationship Specialty Start Date End Date Name, MD Gopi [address] [place] [address] PCP - General Family Medicine 02/04/16 [facility] 05/31/22 documented as of this encounter
--- OUTSIDE RECORDS SUMMARY | 2025-09-30 16:58 | XMS_ITS | Encounter Summary ---
Author Organization [employer] Address 75 [facility] 7t [place] [address] Care Team Providers Care Car Usher Name Role Phone Name, Gopi MORRIS Primary Care Provider [phone] Reason for Visit * Reason Onset Date Comments Appointment Request 11/13/2024 Encounter Details Date Type Department Care Team ([facility] Contact Info) Description 11/13/2024 Telephone [facility] MEDICINE 230 [place], [place] [phone] Name, MD Gopi [address] [place] [address] Appointment Request Social History Tobacco Use Types [...] 2:55 PM EST Tc meliza Rivera with [facility] requesting schedule f/u appt with pcp in regards peripheral neuropathy. [phone] documented in this encounter Plan of Treatment Upcoming Encounters Date Type Department Care Team (Late st Contact Info) Description 11/04/2025 2:30 PM EST Office Visit [facility] MEDICINE [address] [place] [address] Name, MD Gopi [address] [place] [address] documented as of this encounter Visit Diagnoses Not on filedocumented in this encounter Additional Health Concerns Assessment Noted Time PHQ-9 Depression Total Score: 0 12/27/19 24 11:17 AM EST documented as of this encounter Care Teams Car Usher Relationship Specialty Start Date End Date Name, MD Gopi [address] [place] [address] PCP - General Family Medicine 02/04/16 [facility] 05/31/22 documented as of this encounter
--- OUTSIDE RECORDS SUMMARY | 2025-09-30 16:58 | XMS_ITS | Encounter Summary ---
Author Organization [employer] [facility] Address [address] [place] [address] 7 [place] [address] Care Team Providers Care Information Director Name Role Phone Name, Gopi MORRIS Primary Care Provider [phone] Encounter Details Date Type Department Care Team ([facility] Contact Info) Description 03/31/2023 Abstract [facility] [address] [place] [address] [phone] Gopi Jackson MD [address] [place] [address] [phone] Social History Tobacco Use Types Packs/Day Years [...] Description 11/04/2025 2:30 PM EST Office Visit [facility] [address] [place] [address] [phone] NameGopi MD [address] [place] [address] [phone] documented as of this encounter Procedures Procedure [...] on filedocumented in this encounter Care Teams Information Director Relationship Specialty Start Date End Date Name, MD Gopi [address] [place] [address] PCP - General Family Medicine 02/04/16 [facility] 05/31/22 documented as of this encounter
--- OUTSIDE RECORDS SUMMARY | 2025-09-30 16:58 | XMS_ITS | Encounter Summary ---
Author Organization [employer] Address [address] [place] [address] 7t [place] [address] Care Team Providers Care Hvac Instructor Name Role Phone Name, Gopi MORRIS Primary Care Provider [phone] Reason for Visit * Reason Onset Date Comments Referral 07/24/2025 Encounter Details Date Type Department Care Team ([facility] Contact Info) Description 07/24/2025 Telephone [facility] MEDICINE [address] [place], [place] [phone] Name, MD Gopi [address] [place] [address] Referral Social History Tobacco Use Types Packs/Day [...] PM EDT 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 Pt reports they have been dealing [...] for referral. Advised pt to come to [facility] for evaluation due to 10/10 pain with no further injury. Pt states they went to [facility] and they did some XRAY's but did not do anything for her. Advised pt importance of another evaluation due to the increased pain x 1 week with no injury. Pt reports they just want a referral to orthopedics so they are able to get their injections again. Advised pt for third attempt to come to [facility] for evaluation. Advised pt message to be sent to PCP for review of referral request for orthopedics and medication request. Pt verbalized understanding and denies questions at this time. * Telephone Encounter - Kasey Cj - 07/24/2025 10:24 AM EDT Tc from pt requesting a referral for an orthopedic Contact pt at [phone] ([place] citizen) documented in this encounter Plan of Treatment Upcoming Encounters Date Type Department Care Team (Late st Contact Info) Description 11/04/2025 2:30 PM EST Office Visit [facility] MEDICINE [address] [place] [phone] Name, MD Gopi [address] [place] [phone] documented as of this encounter Visit Diagnoses Not on filedocumented in this encounter Additional Health Concerns Assessment Noted Time PHQ-9 Depression Total Score: 0 12/27/19 24 11:17 AM EST documented as of this encounter Care Teams Hvac Instructor Relationship Specialty Start Date End Date Name, MD Gopi [address] [place] [phone] PCP - General Family Medicine 02/04/16 [facility] 05/31/22 documented as of this encounter
--- OUTSIDE RECORDS SUMMARY | 2025-09-30 16:59 | XMS_ITS | Encounter Summary ---
Author Organization [employer] Address [address] [facility] 7t [place] [address] Care Team Providers Care Dental Patient Coordinator Name Role Phone Name, Gopi MORRIS Primary Care Provider [phone] Reason for Visit * Reason Onset Date Comments FYI 02/01/2024 Encounter Details Date Type Department Care Team ([facility] Contact Info) Description 02/01/2024 Telephone [facility] MEDICINE [address] [place], [place] [phone] Name, MD Gopi [address] [place] [address] FYI Social History Tobacco Use Types Packs/Day [...] wanted to inform pt is traveling to [place] from 02/18 and returning on 03/05 and she is going to put services on hold during traveling. Son its going to be on charge of pt medications during traveling days. Any questions contact Nicole at [phone] documented in this encounter Plan of Treatment Upcoming Encounters Date Type Department Care Team (Late st Contact Info) Description 11/04/2025 2:30 PM EST Office Visit [facility] MEDICINE [address] [place] [address] Name, MD Gopi [address] [place] [address] documented as of this encounter Visit Diagnoses Not on filedocumented in this encounter Additional Health Concerns Assessment Noted Time PHQ-9 Depression Total Score: 0 12/27/19 24 11:17 AM EST documented as of this encounter Care Teams Dental Patient Coordinator Relationship Specialty Start Date End Date Name, MD Gopi [address] [place] [address] PCP - General Family Medicine 02/04/16 [facility] 05/31/22 documented as of this encounter
--- OUTSIDE RECORDS SUMMARY | 2025-09-30 16:59 | XMS_ITS | Clinical Summary ---
Author Organization [employer] [facility] [place] [address] Care Team Providers Care Drill Operator Pneumatic Name Role Phone Unavailable Primary Care Provider [...] Depression Screening 10/31/2024 COVID-19 Vaccine ( - 2024-2 6 season) 2025 Influenza Vaccine (#1) 2025 RSV [...]
--- OUTSIDE RECORDS SUMMARY | 2025-09-30 16:59 | XMS_ITS | Clinical Summary ---
Author Organization [employer] Address [address] [place] [address] 7t [place] [address] Care Team Providers Care Career Coach Name Role Phone Name, Gopi MORRIS Primary Care Provider [phone] Allergies Active Allergy Reactions Criticality Noted Date [...] NEEDED FOR PAIN 100 g 023 Active albuterol 108 (90 Base) MCG/ACT inhalerIndication s:COVID-19 virus infection Inhale 2 puffs every 6 (six) hours if needed for wheezing. 18 g 11 024 Active insulin aspart (NovoLOG FLEXPEN) 100 UNIT/ML pen Inject 20 Units under the skin before breakfast, before lunch, and before evening meal. 024 Active Blood Pressure kit Use twice a day at home 1 kit Active Lancet Devices (Autolet) lancing deviceIndications :Type 2 diabetes mellitus with hyperosmolarity without coma, without long-term current use of insulin ([facility]) 1 each by Other route 3 times daily. 1 each 024 Active glucose blood (OneTouch Verio) test strip 1 each by Other route 3 times daily. 100 each 024 Active Lancets (OneTouch Delica Safety Lancing) miscIndications:C ontrolled type 2 diabetes mellitus with other specified complication, unspecified whether laborer marine terminal insulin use Apply 1 each topically See administration instructions. USE TO TEST BLOOD SUGAR THREE TIMES A DAY. Dx:Controlled type 2 diabetes mellitus with other specified complication, unspecified whether halfway insulin use ([facility]) 100 each 3 024 Active UltiCare Alcohol Swabs 70 % padsIndications:T ype 2 diabetes mellitus with other specified complication, unspecified whether laborer marine terminal insulin use ([facility]) USE 1 PAD BY TOPICAL ROUTE 4 TIMES EVERY DAY 100 each 11 025 Active loratadine (Claritin) 10 MG tablet Take 1 tablet (10 mg) by mouth Once per day. 30 tablet 025 2025 Active FREESTYLE LITE test stripIndications: Controlled type 2 diabetes mellitus with other specified complication, unspecified whether halfway insulin use,Insulin dependent type 2 diabetes mellitus (HCC) Use to test blood sugar 3 times daily 100 each 12 025 2025 Active Lancets miscIndications:C ontrolled type 2 diabetes mellitus with other specified complication, unspecified whether halfway insulin use,Insulin dependent type 2 diabetes mellitus (HCC) Use to test blood sugar 3 times daily 100 each 025 Active Glycerin-Hypromel lose-PEG 400 (Artificial Tears) 0.2-0.2-1 % solution PLACE 2-3 DROPS INTO BOTH EYES 3 TIMES DAILY NEEDED 15 mL 3 025 Active omeprazole (PriLOSEC) [address] capsuleIndication s:Heartburn TAKE 1 CAPSULE BY MOUTH EVERY DAY BEFORE BREAKFAST 90 capsule 1 025 Active tiZANidine (Zanaflex) 2 MG tabletIndications :Cervicalgia Take 1 tablet (2 mg) by mouth every 8 (eight) hours if needed for muscle spasms for up to 10 days. 30 tablet 025 Active Acetaminophen Extra Strength 500 MG tabletIndications :Cervicalgia TAKE 1 TABLET BY MOUTH EVERY 8 HOURS IF NEEDED FOR MODERATE PAIN. 30 tablet 1 025 Active atorvastatin (Lipitor) 20 MG tabletIndications :Hyperlipidemia, unspecified hyperlipidemia type TAKE 1 TABLET BY MOUTH EVERY DAY 90 tablet 1 025 Active lisinopril 10 MG tabletIndications :Hypertension, unspecified type TAKE 1 TABLET BY MOUTH EVERY DAY 90 tablet 1 025 Active lidocaine (Lidoderm) 5 % patchIndications: Cervicalgia APPLY 1 PATCH TOPICALLY ONCE PER DAY. REMOVE AND DISCARD PATCH WITHIN 12 HOURS OR DIRECTED BY MD. 30 patch 025 Active cyclobenzaprine (Flexeril) 5 MG tabletIndications :Cervicalgia Take 1 tablet (5 mg) by mouth if needed in the morning, at noon, and at bedtime for muscle spasms for up to 5 days. 15 tablet 025 Active aspirin (Aspirin Low Dose) 81 MG EC tabletIndications :Hyperlipidemia, unspecified hyperlipidemia type TAKE 1 TABLET BY MOUTH EVERY DAY 90 tablet 1 025 Active Tresiba FlexTouch 200 UNIT/ML injection INJECT 85 UNITS UNDER THE SKIN AT BEDTIME. (PER DR NAME 9 mL 12 025 Active Embecta Pen Needle Edilia 2 Gen 32G X 4 MM misc USE 5 TIMES A DAY WITH INSULINS 100 each 5 025 Active aspirin (Aspirin Low Dose) 81 MG EC tabletIndications :Hyperlipidemia, unspecified hyperlipidemia type TOME 1 TABLETA POR VIA ORAL TODOS LOS BARLOW 90 tablet 1 024 2024 Discontinued Tresiba FlexTouch 200 UNIT/ML injection INJECT 85 UNITS UNDER THE SKIN AT BEDTIME. (PER DR NAME 9 mL 12 025 2024 Discontinued BD Pen Needle Edilia 2nd Gen 32G X 4 MM miscIndications:C ontrolled type 2 diabetes mellitus with other specified complication, unspecified whether halfway insulin use USE 5 TIMES A DAY WITH INSULINS 100 each 5 025 2024 Discontinued Active Problems Problem Noted Date [...] Encounters Date Type Department Care Team Description 09/23/2025 Refill [facility] [address] [place] [address] Gopi Jackson MD Hyperlipidemia, unspecified hyperlipidemia type; Type 2 diabetes mellitus with other specified complication (HCC) 08/21/2025 Orders Only GENERIC EXTERNAL DATA DEPARTMENT Provider, Generic External Data 08/16/2025 Orders Only GENERIC EXTERNAL DATA DEPARTMENT Provider, Generic External Data 08/15/[address] [address] Rudi Charles [place] nov recalls 07/24/2025 5:40 PM EDT Office Visit [facility] [address] [place] [phone] CrowEulalio Bhatti MD Cervicalgia (Primary Dx) 07/24/2025 Travel 07/24/[address] [address] Gopi Jackson MD Referral 07/15/[address] [address] Gopi Jackson MD Cervicalgia 07/05/[address] [address] Gopi Jackson MD Nurse Triage 07/04/[address] [address] Gopi Jackson MD Referral 07/03/[address] [address] Gopi Jackson MD Prior Authorization from Last 3 Months Immunizations Immunization Administration [...] 11/04/2025 2:30 PM EST Office Visit [facility] MEDICINE [address] [place], [place] [phone] Name, MD Gopi [address] [place] [address] Health Maintenance Due Date Last Done Comments CT Colonography 1955 FIT DNA/Cologuard 1955 FIT 1955 FOBT 1955 Sigmoidoscopy 1955 Hepatitis C Screening 1972 Hepatitis A Vaccines (1 of 2 - Risk 2-dose series) 1973 RSV Patients and Patients Aged 60 years or older (1 - Risk 50-74 years 1-dose series) 2004 Zoster Vaccines (1 of 2) 2004 Hepatitis B Vaccines (1 of 3 - Risk 3-dose series) 2014 Diabetes: Foot Exam 08/29/2024 08/29/2023, 08/29/2023, 08/29/2023, Additional history exists Depression Screening 12/27/2024 12/27/2023, 12/27/19 24 COVID-19 Vaccine ( season) 2025 08/30/2022, 10/08/2021, 01/21/2021 Influenza Vaccine (#1) 2025 , 08/19/2023, 12/14/2022, Additional history exists Eye Exam 10/11/2025 10/11/2023 Alcohol/Substance Use Screening 10/12/2025 10/12/2024 Diabetes: Urine Protein Screening 02/14/2026 02/14/2025, 07/19/2024, 01/27/2024, Additional history exists Diabetes: Hemoglobin A1C 02/19/2026 025, 02/14/2025, 12/18/2024, Additional history exists Mammogram 03/11/2026 03/11/2025, 01/29, 01/26/2023, Additional history exists SDOH Screening 04/24/2026 04/24/2025 Tobacco Screening 07/24/2026 07/24/2025 Lipid Panel 08/21/2026 08/21/2025, 01/29, 01/27/2024, Additional history exists DTaP/Tdap/Td Vaccines (2 [...] WHOLE BLOOD Routine 08/16/2025 11:32 AM EDT BI MAMMOGRAM SCREENING TOMOSYNTHESIS BILATERAL Routine 03/11/2025 11:05 AM EDT ALBUMIN, RANDOM URINE W/CREATININE Routine 02/14/2025 9:55 AM EDT HM COLONOSCOPY Routine 03/12/2020 3:02 PM EDT from Last 3 Months or Most Recently Relevant to Health Maintenance Results * TSH with Reflex to Free T4 (08/21/2025 10:30 AM EDT) TSH reflex Free T4 2.45 0.32 - 4.0 uIU/mL [facility] 08/21/2025 10:3 0 AM EDT 08/21/2025 10:30 AM EDT Narrative [facility] - 08/21/2025 11:57 AM EDT PER REGISTRATION DR IRVING TO DO LABS WHENEVER us Generic External Data Provider LAB BLOOD ORDERAB LES Final Result [facility] [address] [place] [address] [phone] * Creatinine, Serum (08/21/2025 10:30 AM EDT) Creatinine, Serum 0.65 0.5 - 1.4 mg/dL [facility] Estimated Glomerular Filt Rate >60 [facility] Comment:Chronic Kidney Disea se: Estimated GFR < 60 mL/min/1.34p4Smowfa Kidney Disease: Estimated GFR < 15 mL/min/1.73m2 08/21/2025 10:3 0 AM EDT 08/21/2025 10:30 AM EDT Narrative [facility] - 08/21/2025 11:57 AM EDT PER REGISTRATION DR IRVING TO DO LABS WHENEVER us Generic External Data Provider LAB BLOOD ORDERAB LES Final Result Performing Organization Address City/[facility]/ZIP Co de Phone Number [facility] [address] [place] [address] [phone] * (ABNORMAL) Hemoglobin A1c (08/21/2025 10:30 AM EDT) Hemoglobin A1c 6.8(H) <6.0 % [facility] Comment:Hemoglobin A1C Refer ence Range Adults: 4.8 - 6.0 % Non diabetic: < 6.0 % Goal: < 7.0 %Additional Action Suggested: > 8.0 %Note: Hemoglobin A1c results are invalid for patients with abnormal amounts of HbF. Blood transfusions may impact the HbA1c concentration in the patient sample. Estimated Average Glucose 148 mg/dL [facility] Comment:eAG = Estimated ave rage glucose which is %A1C expressed asaverage glucose, using the formula of the G9V-NgmzqfyGgzudkh Glucose study (ADAG), Diabetes Care, Vol.31,#8,May. 2007 08/21/2025 10:3 0 AM EDT 08/21/2025 10:30 AM EDT Narrative [facility] - 08/21/2025 11:20 AM EDT PER REGISTRATION DR IRVING TO DO LABS WHENEVER us Generic External Data Provider LAB BLOOD ORDERAB LES Final Result [facility] [address] [place] [address] [phone] * Lipid Panel, Standard (08/21/2025 10:30 AM EDT) Triglycerides 77 <150 mg/dL [facility] Comment:Desirable Triglyceri de: less than 150 mg/dLBorderline High Triglyceride 150-199 mg/dLHigh Triglyceride: 200-499 mg/dLVery High Triglyceride: greater than or equal to 5OO mg/dL Cholesterol 127 <200 mg/dL [facility] Comment:Desirable Cholestero l: less than 200 mg/dLBorderline High Cholesterol: 200-239 mg/dLHigh Cholesterol: greater than 239 mg/dL LDL Cholesterol Calculated 52 <100 mg/dL [facility] Comment:Desirable LDL: less than 100 mg/dLNear Optimal/Above Optimal LDL: 110- 129 mg/dLBorderline High LDL: 130-159 mg/dLHigh LDL: 160-189 mg/dLVery High LDL: greater than or equal to 190 mg/dL HDL Cholesterol 60 >40 mg/dL [facility] Comment:Desirable HDL: great er than 40 mg/dL Note: This HDL assay may give artificially low results in patients with liver disease. 08/21/2025 10:3 0 AM EDT 08/21/2025 10:30 AM EDT Narrative [facility] - 08/21/2025 11:57 AM EDT PER REGISTRATION DR IRVING TO DO LABS WHENEVER us Generic External Data Provider LAB BLOOD ORDERAB LES Final Result Performing Organization Address City/State/[facility] Co de Phone Number [facility] [address] [place] [phone] * MR Cervical Spine w/o Contrast (2025 1:50 PM EDT) Anatomical Region Laterality Modality Spine, C-spine Magnetic Resonan ce 2025 1:50 PM EDT Narrative 2025 1:52 PM EDT [address] [address] Magnetic Resonance Report Signed Patient: Priscila Mariscal MR#: [id number] : 1955 Acct:[id number] Age/Sex: 69 / F ADM Date: 08/18/25 Loc: HO.MRI Attending Dr: Eulalio Smith MD Ordering Physician: Eulalio Barbosa MD Date of Service: 08/18/25 Procedure(s): MR cervical spine wo con Accession Number(s): [id number] cc: Eulalio Barbosa MD; Name,Gopi MORRIS Reason [...] 08/20/25 1351 DD/ 1350 TD/TT: 08/20/25 1350 Aircraft Armorer: Procedure Note Donotuseinterpreter, Image - 2025 [place] [address] Magnetic Resonance Report Signed Patient: Mela Mariscal#: [id number] : 4Acct:[id number] Age/Sex: 69 / FADM Date: 08/18/25 Loc: HO.MRI Attending Dr: Eulalio Smith MD Ordering Physician: Eulalio Barbosa MD Date of Service: 08/18/25 Procedure(s): MR cervical spine wo con Accession Number(s): [id number] cc: Eulalio Barbosa MD; Name,Gopi MORRIS Reason [...] 08/20/25 1351 DD/ 1350 TD/TT: 08/20/25 1350 Aircraft Armorer: Eulalio Smith MD IMG MRI PROCEDURES Edited Result - Final * (ABNORMAL) Glucose, Whole Blood (08/16/2025 11:32 AM EDT) Glucose, Whole Blood 157(H) 60 - 115 mg/dL [facility] Comment:METER #: [id number] 0Testing performed in the Endocrinology Department [address] , [address], [facility]. 08/16/2025 11:3 2 AM EDT 08/16/2025 11:36 AM EDT us Generic External Data Provider LAB BLOOD ORDERAB LES Final Result [facility] [address] [facility] [place] [address] [phone] * BI Mammogram Screening Tomosynthesis Bilateral (03/11/2025 11:05 AM EDT) Anatomical Region Laterality Modality Breast Bilateral Mammography 03/11/2025 11:0 5 AM EDT Narrative 03/17/2025 5:27 PM EDT [facility] [address] [place] [address] Mammography Report Signed Patient: Priscila Mariscal MR#: [id number] : 1955 Acct:[id number] Age/Sex: 69 / F ADM Date: 03/11/25 Loc: HO.MAMMO Attending Dr: Gopi Jackson MD Ordering Physician: NameGopi MD Results: 2Benign Fi ndings Date of Service: 03/11/25 Follow Up: 1 Year From [facility] Mammogram Procedure(s): MM tomosynthesis screening BI Accession Number(s): [id number] cc: Laya Christianson; Name,Gopi MORRIS EXAMINATION: MM [...] 03/17/25 1723 DD/ 1105 TD/TT: 03/11/25 1130 Aircraft Armorer: Procedure Note Donotuseinterpreter, Image - 03/18/20[facility] [address] [place], [place] [address] Mammography Report Signed Patient: Mela Mariscal#: [id number] : 1955cct:[id number] Age/Sex: 69 / FADM Date: 03/11/25 Loc: HO.MAMMO Attending Dr: Gopi Jackson MD Ordering Physician: Gopi Jackson MDResults: 2Benign Fi ndings Date of Service: 03/11/25Follow Up: 1 Year From Orig inal Mammogram Procedure(s): MM tomosynthesis screening BI Accession Number(s): [id number] cc: Laya Christianson; Name,Gopi MORRIS EXAMINATION: MM [...] 03/17/25 1723 DD/ 1105 TD/TT: 03/11/25 1130 Aircraft Armorer: Gopisingh Jackson MD IMG BI PROCEDURES Edited Result - Final * Albumin, Random Urine W/Creatinine (02/14/2025 9:55 AM EDT) Creatinine, Urine 54.76 mg/dL [facility] Microalbumin Urine 6.0 mg/L [facility] Microalbum Creatinine Ratio Ur 10.9 <30 ug/mg cr [facility] Comment:Albumin/Creatinine R atio Reference Ranges: Normal: < 30 ug/mg creatinine Microalbuminuria: 30 - 300 ug/mg creatinineClinical Albuminuria: > 300 ug/mg creatinine 02/14/2025 9:55 AM EDT 02/14/2025 11:03 AM EDT Generic External Data Provider LAB URINE ORDERAB LES Final Result [facility] [address] [place] [phone] * Hm Colonoscopy (03/12/2020 3:02 PM EDT) Colonoscopy Normal Normal Narrative Eileen Delgado - 03/12/2020 3:02 PM EDT Recommended 10 year follow up ( ) us Historical Provider HEALTH MAINTENANCE Final Result from Last 3 Months or Most Recently Relevant to Health Maintenance Insurance [facility] STANDARD MEDICARE Care Teams Career Coach Relationship Specialty Start Date End Date Name, MD Gopi [address] [place] [phone] PCP - General Family Medicine 02/04/16 [facility] 05/31/22
== END 2025-09-30 14:06 | disposition home or self-care (01) ==
LOC: HO.HPODS 13:24
PROVIDERS: PCP Internal Medicine Geriatric Medicine; Visit Provider Student in an Organized Health Care Education/Training Program
DX: E11.21 Type 2 diabetes mellitus with diabetic nephropathy (principal); M77.42 Metatarsalgia, left foot; Q82.8 Other specified congenital malformations of skin; L85.8 Other specified epidermal thickening; M79.672 Pain in left foot; E11.40 Type 2 diabetes mellitus with diabetic neuropathy, unspecified
CPT/HCPCS: 11055; 99204; G9226

== ENCOUNTER → 2025-09-30 13:24 | Outpatient (BNVA) | payer MEDICARE, MEDICAID, SELFPAY | PROVIDERS: PCP Internal Medicine Geriatric Medicine; Visit Provider Student in an Organized Health Care Education/Training Program | DX: E11.21 Type 2 diabetes mellitus with diabetic nephropathy (principal); M77.42 Metatarsalgia, left foot; Q82.8 Other specified congenital malformations of skin; L85.8 Other specified epidermal thickening; E11.40 Type 2 diabetes mellitus with diabetic neuropathy, unspecified | CPT/HCPCS: 11055; 99202 ==

== ENCOUNTER 2025-10-16 14:07 | Outpatient (REF) | payer MEDICARE, MEDICAID, SELFPAY ==
--- NOTE | ~2025-10-16 | US_ITS ---
EXAMINATION: US THYROID HISTORY: E04.1 - Nontoxic single thyroid nodule TECHNIQUE: Real-time grayscale ultrasound imaging was performed and images were reviewed. COMPARISON: Comparison is made with the prior examination dated 01/21/2022. FINDINGS: SIZE: The right thyroid lobe measures 4.0 x 1.9 x 1.7 cm. The left thyroid lobe measures 3.9 x 1.4 x 1.4 cm. The isthmus measures 6 mm. FLOW: Flow to the gland is normal. ECHOGENICITY: The echotexture of the gland is heterogeneous. NODULES: There is a 4 mm spongiform nodule on the left. An additional solid nodule is noted as described below: Nodule #: 1 Location: Midportion of the right thyroid lobe measuring 2.0 x 1.4 x 1.5 cm (previously 1.8 x 1.6 x 1.5 cm). Shape: Wider than tall (0 points) Margins: Smooth (0 points) Echotexture: Hypoechoic (2 points) Composition: Mostly solid (2 points) Calcifications: None (0 points) Total points: 4 TIRADS: TR4: Moderately suspicious. US/US thyroid IMPRESSION: Stable moderately suspicious nodule in the midportion of the right thyroid lobe. ACR TI-RADS Guidelines TR1 (0 points): Benign. No follow-up or biopsy required TR2 (2 points): Not Suspicious. No biopsy or follow up indicated TR3 (3 points): Mildly Suspicious. FNA if >= 2.5 cm, Follow if >= 1.5 cm TR4 (4-6 points): Moderately Suspicious. FNA if >= 1.5 cm, Follow if >= 1.0 cm TR5 (>=7 points): Highly Suspicious. FNA if >= 1.0 cm, Follow if >= 0.5 cm Electronically signed by: Hai Antoine MD 10/16/2025 02:49 PM EST
--- OUTSIDE RECORDS SUMMARY | 2025-10-16 18:55 | XMS_ITS | Encounter Summary ---
Author Organization [employer] Address [address] [facility] 7t [place] [address] Care Team Providers Care Pinball Machine Repairer Name Role Phone Name, Gopi MORRIS Primary Care Provider [phone] Reason for Visit * Reason Onset Date Comments FYI 02/01/2024 Encounter Details Date Type Department Care Team ([facility] Contact Info) Description 02/01/2024 Telephone [facility] MEDICINE [address] [place], [place] [phone] Name, MD Gopi [address] [place] [address] FYI Social History Tobacco Use Types Packs/Day [...] wanted to inform pt is traveling [place] from [place] and returning on 03/05 and she is going to put services on hold during traveling. Son its going to be on charge of pt medications during traveling days. Any questions contact Nicole at [phone] documented in this encounter Plan of Treatment Upcoming Encounters Date Type Department Care Team (Late st Contact Info) Description 11/04/2025 2:30 PM EST Office Visit [facility] [address] [place] [address] Name, MD Gopi [address] [place] [address] documented as of this encounter Visit Diagnoses Not on filedocumented in this encounter Additional Health Concerns Assessment Noted Time PHQ-9 Depression Total Score: 0 12/27/19 24 11:17 AM EST documented as of this encounter Care Teams Pinball Machine Repairer Relationship Specialty Start Date End Date Name, MD Gopi [address] [place] [address] PCP - General Family Medicine 02/04/16 [facility] 05/31/22 documented as of this encounter
--- OUTSIDE RECORDS SUMMARY | 2025-10-16 18:55 | XMS_ITS | Clinical Summary ---
Author Organization [employer] Address [address] [place] [address] 7t [place] [address] Care Team Providers Care Monitoring Tech Name Role Phone Name, Gopi MORRIS Primary Care Provider [phone] Allergies Active Allergy Reactions Criticality Noted Date [...] coma, without long-term current use of insulin ([facility]) 1 each by Other route 3 times daily. 1 each 024 Active glucose blood (OneTouch Verio) test strip 1 each by Other route 3 times daily. 100 each 024 Active Lancets (OneTouch Delica Safety Lancing) miscIndications:C ontrolled type 2 diabetes mellitus with other specified complication, unspecified whether terminal supervisor insulin use Apply 1 each topically See administration instructions. USE TO TEST BLOOD SUGAR THREE TIMES A DAY. Dx:Controlled type 2 diabetes mellitus with other specified complication, unspecified whether terminal supervisor insulin use ([facility]) 100 each 3 024 Active UltiCare Alcohol Swabs 70 % padsIndications:T ype 2 diabetes mellitus with other specified complication, unspecified whether senior care insulin use ([facility]) USE 1 PAD BY TOPICAL ROUTE 4 TIMES EVERY DAY 100 each 11 025 Active loratadine (Claritin) 10 MG tablet Take 1 tablet (10 mg) by mouth Once per day. 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) Use to test blood sugar 3 times daily 100 each 12 025 2025 Active Lancets miscIndications:C ontrolled type 2 diabetes mellitus with other specified complication, unspecified whether senior care insulin use,Insulin dependent type 2 diabetes mellitus [...] with other specified complication, unspecified whether senior care insulin use USE 5 TIMES A DAY [...] Encounters Date Type Department Care Team Description 10/16/2025 Orders Only [facility] External Provider, [facility] 09/23/2025 Refill [facility] [address] [place] [address] Gopi Jackson MD Hyperlipidemia, unspecified hyperlipidemia type; Type 2 diabetes mellitus with other specified complication (HCC) 08/21/2025 Orders Only GENERIC EXTERNAL DATA DEPARTMENT Provider, Generic External Data 08/16/2025 Orders Only GENERIC EXTERNAL DATA DEPARTMENT Provider, Generic External Data 08/15/2025 Telephone [facility] [address] [place] [address] Rudi Charles MA nov recalls 07/24/2025 5:40 PM EDT Office Visit [facility] [address] [place] [address] Eulalio Barbosa MD Cervicalgia (Primary Dx) 07/24/2025 Travel 07/24/2025 Telephone [facility] [address] [place] [address] NameGopi MD Referral from Last 3 Months Immunizations Immunization Administration [...] with others, in a hotel, in a mcc, living outside on the street, on a [...] 2:30 PM EST Office Visit [facility] [address] [place] [address] Name, MD Gopi [address] [place] [address] Health Maintenance Due Date Last Done Comments CT Colonography 1955 FIT DNA/Cologuard 1955 FIT 1955 FOBT 1955 Sigmoidoscopy 1955 Alcohol/Substance Use Screening 1966 Hepatitis C Screening 1972 Hepatitis A Vaccines [...] Additional history exists Eye Exam 10/11/2025 10/11/2023 Diabetes: Urine Protein Screening 02/14/2026 02/14/2025, 07/19/2024, 01/27/2024, Additional history exists Diabetes: Hemoglobin A1C 02/19/202608/21/ 025, 02/14/2025, 12/18/2024, Additional history exists Mammogram [...] Procedure Name Priority Date/Time Associated Diagnosis Comments US THYROID Routine 10/16/2025 2:23 PM EST TSH W/REFLEX TO FT4 Routine 08/21/2025 1 [...] Recently Relevant to Health Maintenance Results * US Thyroid (10/16/2025 2:23 PM EST) Anatomical Region Laterality Modality Head, Neck Ultrasound 10/16/2025 2:23 PM EST Narrative 10/16/2025 2:52 PM EST [address] [address] Ultrasound Report Signed Patient: Priscila Mariscal MR#: [id number] : 1955 Acct:[id number] Age/Sex: 70 / F ADM Date: 10/16/25 Loc: HO.US Attending Dr: Laya HERNANDEZ Ordering Physician: Laya Christianson Date of Service: 10/16/25 Procedure(s): US thyroid Accession Number(s): [id number] cc: Laya Christianson; Name,Gopi MORRIS Reason for Exam: E04.1 - Nontoxic single thyroid nodule EXAMINATION: US THYROID HISTORY: E04.1 - Nontoxic single thyroid nodule TECHNIQUE: Real-time grayscale ultrasound imaging was performed and images were reviewed. COMPARISON: Comparison is made with the prior examination dated 01/21/2022. FINDINGS: SIZE: The right thyroid lobe measures 4.0 x 1.9 x 1.7 cm. The left thyroid lobe measures 3.9 x 1.4 x 1.4 cm. The isthmus measures 6 mm. FLOW: Flow to the gland is normal. ECHOGENICITY: The echotexture of the gland is heterogeneous. NODULES: There is a 4 mm spongiform nodule on the left. An additional solid nodule is noted as described below: Nodule #: 1 Location: Midportion of the right thyroid lobe measuring 2.0 x 1.4 x 1.5 cm (previously 1.8 x 1.6 x 1.5 cm). Shape: Wider than tall (0 points) Margins: Smooth (0 points) Echotexture: Hypoechoic (2 points) Composition: Mostly solid (2 points) Calcifications: None (0 points) Total points: 4 TIRADS: TR4: Moderately suspicious. US/US thyroid IMPRESSION: Stable moderately suspicious nodule in the midportion of the right thyroid lobe. ACR TI-RADS Guidelines TR1 (0 points): Benign. No follow-up or biopsy required TR2 (2 points): Not Suspicious. No biopsy or follow up indicated TR3 (3 points): Mildly Suspicious. FNA if >= 2.5 cm, Follow if >= 1.5 cm TR4 (4-6 points): Moderately Suspicious. FNA if >= 1.5 cm, Follow if >= 1.0 cm TR5 (>=7 points): Highly Suspicious. FNA if >= 1.0 cm, Follow if >= 0.5 cm Electronically signed by: Hai Antoine MD 10/16/2025 02:49 PM [facility] Dictated By: Hai Antoine MD Signed By: <Electronically signed by Hai Antoine MD in OV> 10/16/25 1449 DD/ 1423 TD/TT: 10/16/25 1431 Stock Room Manager: Procedure Note Donotuseinterpreter, Image - 10/16/[address] [address] Ultrasound Report Signed Patient: Mela Mariscal#: [id number] : 1955cct:[id number] Age/Sex: 70 / FADM Date: 10/16/25 Loc: HO.US Attending Dr: Laya HERNANDEZ Ordering Physician: Laya Christianson Date of Service: 10/16/25 Procedure(s): US thyroid Accession Number(s): [id number] cc: Laya Christianson; Name,Gopi MORRIS Reason for Exam: E04.1 - Nontoxic single thyroid nodule EXAMINATION: US THYROID HISTORY: E04.1 - Nontoxic single thyroid nodule TECHNIQUE: Real-time grayscale ultrasound imaging was performed and images were reviewed. COMPARISON: Comparison is made with the prior examination dated 01/21/2022. FINDINGS: SIZE: The right thyroid lobe measures 4.0 x 1.9 x 1.7 cm. The left thyroid lobe measures 3.9 x 1.4 x 1.4 cm. The isthmus measures 6 mm. FLOW: Flow to the gland is normal. ECHOGENICITY: The echotexture of the gland is heterogeneous. NODULES: There is a 4 mm spongiform nodule on the left. An additional solid nodule is noted as described below: Nodule #: 1 Location: Midportion of the right thyroid lobe measuring 2.0 x 1.4 x 1.5 cm (previously 1.8 x 1.6 x 1.5 cm). Shape: Wider than tall (0 points) Margins: Smooth (0 points) Echotexture: Hypoechoic (2 points) Composition: Mostly solid (2 points) Calcifications: None (0 points) Total points: 4 TIRADS: TR4: Moderately suspicious. US/US thyroid IMPRESSION: Stable moderately suspicious nodule in the midportion of the right thyroid lobe. ACR TI-RADS Guidelines TR1 (0 points): Benign. No follow-up or biopsy required TR2 (2 points): Not Suspicious. No biopsy or follow up indicated TR3 (3 points): Mildly Suspicious. FNA if >= 2.5 cm, Follow if >= 1.5 cm TR4 (4-6 points): Moderately Suspicious. FNA if >= 1.5 cm, Follow if >= 1.0 cm TR5 (>=7 points): Highly Suspicious. FNA if >= 1.0 cm, Follow if >= 0.5 cm Electronically signed by: Hai Antoine MD 10/16/2025 02:49 PM [facility] Dictated By: Hai Antoine MD Signed By: <Electronically signed by Hai Antoine MD in OV> 10/16/25 1449 DD/ 1423 TD/TT: 10/16/25 1431 Stock Room Manager: us [facility] External Provider IMG US PROCEDURES Final Result * TSH with Reflex to Free T4 (08/21/2025 10:30 AM EDT) TSH reflex Free T4 2.45 0.32 - 4.0 uIU/mL [facility] 08/21/2025 10:3 0 AM EDT 08/21/2025 10:30 AM EDT [facility] - 08/21/2025 11:57 AM EDT PER REGISTRATION DR IRVING TO DO LABS WHENEVER us Generic External Data Provider LAB BLOOD ORDERAB LES Final Result Performing Organization Address [facility] de Phone Number [facility] [address] [place] [phone] * Creatinine, Serum (08/21/2025 10:30 AM EDT) Creatinine, Serum 0.65 0.5 - 1.4 mg/dL [facility] Estimated Glomerular Filt Rate >60 [facility] Comment:Chronic Kidney Disea se: Estimated GFR < 60 mL/min/1.91q1Cxbcta Kidney Disease: Estimated GFR < 15 mL/min/1.73m2 08/21/2025 10:3 0 AM EDT 08/21/2025 10:30 AM EDT [facility] - 08/21/2025 11:57 AM EDT PER REGISTRATION DR IRVING TO DO LABS WHENEVER us Generic External Data Provider LAB BLOOD ORDERAB LES Final Result Performing Organization Address [facility] [[email or web address]] Co de Phone Number [facility] [address] [place] [phone] * (ABNORMAL) Hemoglobin A1c (08/21/2025 10:30 AM EDT) Hemoglobin A1c 6.8(H) <6.0 % [facility] Comment:Hemoglobin A1C Refer ence Range Adults: 4.8 - 6.0 % Non diabetic: < 6.0 % Goal: < 7.0 %Additional Action Suggested: > 8.0 %Note: Hemoglobin A1c results are invalid for patients with abnormal amounts of HbF. Blood transfusions may impact the HbA1c concentration in the patient sample. Estimated Average Glucose 148 mg/dL [facility] Comment:eAG = Estimated ave rage glucose which is %A1C expressed asaverage glucose, using the formula of the P2K-UvdcuqmBmblkai Glucose study (ADAG), Diabetes Care, Vol.31,#8,2007 08/21/2025 10:3 0 AM EDT 08/21/2025 10:30 AM EDT Narrative [facility] - 08/21/2025 11:20 AM EDT PER REGISTRATION DR IRVING TO DO LABS WHENEVER us Generic External Data Provider LAB BLOOD ORDERAB LES Final Result [facility] [address] [place] [phone] * Lipid Panel, Standard (08/21/2025 10:30 AM EDT) Triglycerides 77 <150 mg/dL [facility] Comment:Desirable Triglyceri de: less than 150 mg/dLBorderline High Triglyceride 150-199 mg/dLHigh Triglyceride: 200-499 mg/dLVery High Triglyceride: greater than or equal to 5OO mg/dL Cholesterol 127 <200 mg/dL [facility] Comment:Desirable Cholestero l: less than 200 mg/dLBorderline High Cholesterol: 200-239 mg/dLHigh Cholesterol: greater than 239 mg/dL LDL Cholesterol Calculated 52 <100 mg/dL [facility] Comment:Desirable LDL: less than 100 mg/dLNear Optimal/Above Optimal LDL: 110- 129 mg/dLBorderline High LDL: 130-159 mg/dLHigh LDL: 160-189 mg/dLVery High LDL: greater than or equal to 190 mg/dL HDL Cholesterol 60 >40 mg/dL [facility] Comment:Desirable HDL: great er than 40 mg/dL Note: This HDL assay may give artificially low results in patients with liver disease. 08/21/2025 10:3 0 AM EDT 08/21/2025 10:30 AM EDT Narrative [facility] - 08/21/2025 11:57 AM EDT PER REGISTRATION DR IRVING TO DO LABS WHENEVER us Generic External Data Provider LAB BLOOD ORDERAB LES Final Result Performing Organization Address City/State/[facility] [[email or web address]] Co de Phone Number [facility] [address] [place] [address] [phone] * MR Cervical Spine w/o Contrast (2025 1:50 PM EDT) Anatomical Region Laterality Modality Spine, C-spine Magnetic Resonan ce 2025 1:50 PM EDT Narrative 2025 1:52 PM EDT [address] [address] Magnetic Resonance Report Signed Patient: Priscila Mariscal MR#: [id number] : 1955 Acct:[id number] Age/Sex: 69 / F ADM Date: 08/18/25 Loc: HO.MRI Attending Dr: Eulalio Smith MD Ordering Physician: Eulalio Barbosa MD Date of Service: 08/18/25 Procedure(s): MR cervical spine wo con Accession Number(s): [id number] cc: Eulalio Barbosa MD; Name,Gopi MORRIS Reason [...] 08/20/25 1351 DD/ 1350 TD/TT: 08/20/25 1350 Stock Room Manager: Procedure Note Donotuseinterpreter, Image - [address] [place] [address] Magnetic Resonance Report Signed Patient: Mela Mariscal#: [id number] : 4Acct:[id number] Age/Sex: 69 / FADM Date: 08/18/25 Loc: HO.MRI Attending Dr: Eulalio Smith MD Ordering Physician: Eulalio Barbosa MD Date of Service: 08/18/25 Procedure(s): MR cervical spine wo con Accession Number(s): [id number] cc: Eulalio Barbosa MD; Name,Gopi MORRIS Reason [...] 08/20/25 1351 DD/ 1350 TD/TT: 08/20/25 1350 Stock Room Manager: us Eulalio Smith MD IMG MRI PROCEDURES Edited Result - Final * (ABNORMAL) Glucose, Whole Blood (08/16/2025 11:32 AM EDT) Glucose, Whole Blood 157(H) 60 - 115 mg/dL [facility] Comment:METER #: [id number] 0Testing performed in the Endocrinology Department [address] , [address], [facility]. 08/16/2025 11:3 2 AM EDT 08/16/2025 11:36 AM EDT us Generic External Data Provider LAB BLOOD ORDERAB LES Final Result [facility] [address] [place] [phone] * BI Mammogram Screening Tomosynthesis Bilateral (03/11/2025 11:05 AM EDT) Anatomical Region Laterality Modality Breast Bilateral Mammography 03/11/2025 11:0 5 AM EDT Narrative 03/17/2025 5:27 PM EDT [facility] [address] [place], [place] [address] Mammography Report Signed Patient: Priscila Mariscal MR#: [id number] : 1955 Acct:[id number] Age/Sex: 69 / F ADM Date: 03/11/25 Loc: HO.MAMMO Attending Dr: Gopi Jackson MD Ordering Physician: Gopi Jackson MD Results: 2Benign Fi ndings Date of Service: 03/11/25 Follow Up: 1 Year From Orig inal Mammogram Procedure(s): MM tomosynthesis screening BI Accession Number(s): [id number] cc: Laya Christianson; Name,Gopi MORRIS EXAMINATION: MM [...] 03/17/25 1723 DD/ 1105 TD/TT: 03/11/25 1130 Stock Room Manager: Procedure Note Donotuseinterpreter, Image - 03/18/2025 [facility] [address] [place], [place] [address] Mammography Report Signed Patient: Mela Mariscal#: [id number] : 4Acct:[id number] Age/Sex: 69 / FADM Date: 03/11/25 Loc: HO.MAMMO Attending Dr: Gopi Jackson MD Ordering Physician: Gopi Jackson MDResults: 2Benign Fi ndings Date of Service: 03/11/25Follow Up: 1 Year From Orig inal Mammogram Procedure(s): MM tomosynthesis screening BI Accession Number(s): [id number] cc: Laya Christianson; Name,Gopi MORRIS EXAMINATION: MM [...] by Daniela Benson DO in OV> 03/17/25 7893 DD/ 1105 TD/TT: 03/11/25 1130 Stock Room Manager: us Gopi Name IMG BI PROCEDURES Edited Result - Final * Albumin, Random Urine W/Creatinine (02/14/2025 9:55 AM EDT) Creatinine, Urine 54.76 mg/dL [facility] Microalbumin Urine 6.0 mg/L [facility] Microalbum Creatinine Ratio Ur 10.9 <30 ug/mg cr [facility] Comment:Albumin/Creatinine R atio Reference Ranges: Normal: < 30 ug/mg creatinine Microalbuminuria: 30 - 300 ug/mg creatinineClinical Albuminuria: > 300 ug/mg creatinine 02/14/2025 9:55 AM EDT 02/14/2025 11:03 AM EDT us Generic External Data Provider LAB URINE ORDERAB LES Final Result Performing Organization Address City/State/[facility] [[email or web address]] Co de Phone Number [facility] [address] [place] [phone] * Hm Colonoscopy (03/12/2020 3:02 PM EDT) Colonoscopy Normal Normal Narrative Eileen Delgado - 03/12/2020 3:02 PM EDT Recommended 10 year follow up ( ) us Historical Provider HEALTH MAINTENANCE Final Result from Last 3 Months or Most Recently Relevant to Health Maintenance Insurance [facility] STANDARD [place] [phone] [place] [address] [place] [address] [place] Care Teams Monitoring Tech Relationship Specialty Start Date End Date Name, MD Gopi [address] [place] [phone] PCP - General Family Medicine 02/04/16 [facility] 05/31/22
--- OUTSIDE RECORDS SUMMARY | 2025-10-16 18:55 | XMS_ITS | Clinical Summary ---
Author Organization [employer] [facility] [place] [address] Care Team Providers Care Toe Former Name Role Phone Unavailable Primary Care Provider [...]
--- OUTSIDE RECORDS SUMMARY | 2025-10-16 18:55 | XMS_ITS | Encounter Summary ---
Author Organization [employer] Address [address] [facility] 7t [place] [address] Care Team Providers Care Bisque Cleaner Name Role Phone Name, Gopi MORRIS Primary Care Provider [phone] Encounter Details Date Type Department Care Team ([facility] Contact Info) Description 10/16/2025 Orders Only [facility] External Provider, [facility] Social History Tobacco Use Types Packs/Day Years [...] with others, in a hotel, in a care home, living outside on the street, on [...] 2:30 PM EST Office Visit [facility] [address] [place] [phone] Name, MD Gopi [address] [place] [phone] documented as of this encounter Procedures Procedure Name Priority Date/Time Associated Diagnosis Comments US THYROID Routine 10/16/2025 2:23 PM EST documented in this encounter Results * US Thyroid (10/16/2025 2:23 PM EST) Anatomical Region Laterality Modality Head, Neck Ultrasound 10/16/2025 2:23 PM EST Narrative 10/16/2025 2:52 PM EST [address] [address] Ultrasound Report Signed Patient: Priscila Mariscal MR#: [id number] : 1955 Acct:[id number] Age/Sex: 70 / F ADM Date: 10/16/25 Loc: HO.US Attending Dr: Laya HERNANDEZ Ordering Physician: Laya Christianson Date of Service: 10/16/25 Procedure(s): US thyroid Accession Number(s): [id number] cc: Laya Christianson; Name,Gopi MORRIS Reason for [...] by: Hai Antoine MD 10/16/2025 02:49 PM EST Dictated By: Hai Antoine MD Signed By: <Electronically signed by Hai Antoine MD in OV> 10/16/25 1449 DD/ 1423 TD/TT: 10/16/25 1431 Patch Washer: Procedure Note Donotuseinterpreter, Image - 10/16/[address] [address] Ultrasound Report Signed Patient: Mela Mariscal#: [id number] : 1955cct:[id number] Age/Sex: 70 / FADM Date: 10/16/25 Loc: HO.US Attending Dr: Laya HERNANDEZ Ordering Physician: Laya Christianson Date of Service: 10/16/25 Procedure(s): US thyroid Accession Number(s): [id number] cc: Laya Christianson; Name,Gopi MORRIS Reason for [...] by: Hai Antoine MD 10/16/2025 02:49 PM EST Dictated By: Hai Antoine MD Signed By: <Electronically signed by Hai Antoine MD in OV> 10/16/25 1449 DD/ 1423 TD/TT: 10/16/25 1431 Patch Washer: [facility] External Provider IMG US PROCEDURES Final Result documented in this encounter Visit Diagnoses Not on filedocumented in this encounter Additional Health Concerns Assessment Noted Time PHQ-9 Depression Total Score: 0 12/27/19 24 11:17 AM EST documented as of this encounter Care Teams Bisque Cleaner Relationship Specialty Start Date End Date Name, MD Gopi [address] [place] [address] PCP - General Family Medicine 02/04/16 [facility] 05/31/22 documented as of this encounter
--- OUTSIDE RECORDS SUMMARY | 2025-10-16 18:55 | XMS_ITS | Encounter Summary ---
Author Organization [employer] Address [address] [facility] 7t [place] [address] Care Team Providers Care U.[place]. Senator Name Role Phone Name, Gopi MORRIS Primary Care Provider [phone] Reason for Visit * Reason Onset Date Comments Appointment Request 11/13/2024 Encounter Details Date Type Department [facility] Description 11/13/2024 Telephone [facility] [address] [place], [place] [phone] Name, MD Gopi [address] [place] [address] Appointment Request Social History Tobacco Use Types [...] 2:55 PM EST Tc meliza Rivera with [facility] requesting schedule f/u appt with pcp in regards peripheral neuropathy. [phone] documented in this encounter Plan of Treatment Upcoming Encounters Date Type Department Care Team (Late st Contact Info) Description 11/04/2025 2:30 PM EST Office Visit [facility] [address] [place] [address] Name, MD Gopi [address] [place] [address] documented as of this encounter Visit Diagnoses Not on filedocumented in this encounter Additional Health Concerns Assessment Noted Time PHQ-9 Depression Total Score: 0 12/27/19 24 11:17 AM EST documented as of this encounter Care Teams U.[place]. Senator Relationship Specialty Start Date End Date Name, MD Gopi [address] [place] [address] PCP - General Family Medicine 02/04/16 [facility] 05/31/22 documented as of this encounter
--- OUTSIDE RECORDS SUMMARY | 2025-10-16 18:55 | XMS_ITS | Encounter Summary ---
Author Organization [employer] [facility] Address [address] [place] [address] 7 [place] [address] Care Team Providers Care Lag Screwer Name Role Phone Name, Gopi MORRIS Primary Care Provider [phone] Encounter Details Date Type Department Care Team ([facility] Contact Info) Description 03/31/2023 Abstract [facility] [address] [place] [address] [phone] Gopi Jackson MD [address] [place] [phone] Social History Tobacco Use Types Packs/Day Years [...] Description 11/04/2025 2:30 PM EST Office Visit [facility] [address] [place] [phone] NameGopi MD [address] [place] [address] [phone] documented as of this encounter Procedures Procedure [...] on filedocumented in this encounter Care Teams Lag Screwer Relationship Specialty Start Date End Date Name, MD Gopi [address] [place] [address] PCP - General Family Medicine 02/04/16 [facility] 05/31/22 documented as of this encounter
--- OUTSIDE RECORDS SUMMARY | 2025-10-16 18:55 | XMS_ITS | Encounter Summary ---
Author Organization [email or web address] Address [address] [facility] 7t [place] [address] Care Team Providers Care General Studies Program Chair Name Role Phone Name, Gopi MORRIS Primary Care Provider [phone] Reason for Visit * Reason Comments Med Change Request Encounter Details Date Type Department Care Team ([facility] Contact Info) Description 10/05/2023 Refill [facility] [address] [place] [address] Johana Garibay, ANP [address] [place] [address] Acute bacterial conjunctivitis of both eyes Social [...] 2:30 PM EST Office Visit [facility] [address] [place] [address] Name, MD Gopi [address] [place] [phone] documented as of this encounter Visit Diagnoses Diagnosis Acute bacterial conjunctivitis of both eyes documented in this encounter Care Teams General Studies Program Chair Relationship Specialty Start Date End Date Name, MD Gopi [address] [place] [phone] PCP - General Family Medicine 02/04/16 [facility] 05/31/22 documented as of this encounter
--- OUTSIDE RECORDS SUMMARY | 2025-10-16 18:55 | XMS_ITS | Patient Health Record ---
Author Organization [facility] Address [address] [place] [address] Care Team Providers Care Sourcing Engineer Name Role Phone Name Gopi MORRIS [...] Date Status MiraLax (colon prep) 17 GM/SCOOP Powder mixed with Gatorade or Crystal Light Orally begin at 5:00 p.m. the day before the procedure; Duration: 1 day 08/24/2023 Active Nortriptyline HCl 75 MG Capsule 1 capsule Orally Once a day; Duration: 30 day(s) Active Lactulose 10 GM Packet 1 packet Orally O nce a day; Duration: 30 day(s) Active Ozempic (1 MG/DOSE) 2 MG/1.5ML Solution Pen-injector 1 mg subcutaneous once a week Active NovoLOG FlexPen 100 UNIT/ML Solution Pen-injector as directed Subcutaneous 30 units tid Active Tresiba FlexTouch 200 UNIT/ML Solution Pen-injector as directed Subcutaneous Active Benztropine Mesylate 1 MG/ML Solution 1 ml Injection Once a day; Duration: 30 day(s) Active Atorvastatin Calcium 20 MG Tablet 1 tablet Orally Once a day Active Letrozole 2.5 MG Tablet 1 tablet Orally Once a day Active fluPHENAZine Decanoate 25 MG/ML Solution INJECT 2ML POR V?A INTRAMUSCULAR EVERY 3 WEEKS Injection; Duration: 42 Active MiraLax (colon prep) 8.3 ounce ((238) grams mixed with Gatorade or Crystal Light orally begin at 5:00 p.m. the day before the procedure; Duration: 1 day 08/25/2023 Active Aspirin Low Dose 81 MG Tablet Delayed Release TOME ALINA TABLETA TODOS LOS D? Oral; Duration: 30 Active Dulcolax (colon prep) 5 MG Tablet Delayed Release take at 3:00 p.m and 7:00p.m. Orally two tablets twice a day for one day; Duration: 1 day 08/25/2023 Active Zolpidem Tartrate 5 MG Tablet Sublingual 1 tablet under the tongue and allow to dissolve at bedtime as needed Sublingual Once a day Active Lisinopril 10 MG Tablet 1 tablet Orally Once a day Active Omeprazole 20 MG Capsule Delayed Release 1 capsule 30 minutes before morning meal Orally Once a day; Duration: 30 day(s) Active Meloxicam 7.5 MG Tablet 1 tablet Orally Once a day; Duration: 30 day(s) Active Acetaminophen 500 MG Capsule 1 capsule as needed Orally every 6 hrs Active Immunizations Vaccine Route Administration Date Status Comme nts Influenza Unknown 11/28/2019 Refused Influenza Unknown 08/19/2023 Administered Social History Tobacco Use: Social History Observation Description Date Details (start date - stop date) Former Smoker NA - NA Social History Drugs/Alcohol: Social Info Question Answer Notes Alcohol Screen Did you have a drink containing alcohol in the past year? No Points 0 Interpretation Negative Tobacco Use: Social Info Question Answer Notes Tobacco Use/Smoking Patient is a former smoker How long has it been since you last smoked? > 10 years Additional Details Category Social Info Options Details Miscellaneous: Marital status: Occupation: unemployed Problems Problem Type SNOMED Code ICD Code Onset Dates Problem Status W/U Status Risk Notes Problem Colon cancer screening (017518001) Colon cancer screening (Z12.11) Active confirmed Problem Rectal bleeding (94864538) Rectal bleeding (K62.5) Active confirmed Problem Gastric polyp (65674757) Gastric polyp (K31.7) Active confirmed Problem Constipation (40818391) Constipation, unspecified constipation type (K59.00) Active confirmed Problem Diarrhea (64690774) Diarrhea, unspecified type (R19.7) Active confirmed Problem Cirrhosis - non-alcoholic (537985778) Cirrhosis of liver without ascites, unspecified hepatic cirrhosis type (K74.60) Active confirmed Problem Microscopic colitis (636279228) Microscopic colitis, unspecified microscopic colitis type (K52.839) Active confirmed Plan Of Treatment Pending Test Test Name Order Date LIVER PROFILE 07/20/2021 LIVER PROFILE 08/25/2023 CBC w/o DIFF 07/20/2021 CBC w/o DIFF 08/25/2023 PROTHROMBIN TIME (PT, INR) 08/25/2023 PROTHROMBIN TIME [...] OF [place] [address] [place] [address] [id number] KAY CHAN Self - patient is the insured [place] OF [place] [facility] [address] [place] [address] [id number] KAY CHAN Self - patient is the [...]
== END 2025-10-16 14:08 ==
LOC: HO.US 14:07
PROVIDERS: PCP Internal Medicine Geriatric Medicine; Visit Provider Physician Assistant Medical
DX: E04.1 Nontoxic single thyroid nodule (principal)
CPT/HCPCS: 76536

== ENCOUNTER → 2025-10-16 14:08 | Outpatient (BNV) | payer MEDICARE, MEDICAID, SELFPAY | PROVIDERS: PCP Internal Medicine Geriatric Medicine; Visit Provider Radiology Diagnostic Radiology | DX: E04.1 Nontoxic single thyroid nodule (principal) | CPT/HCPCS: 76536 ==